=== PATIENT | female | born 1960 | race Caucasian/White ===

== ENCOUNTER 2016-07-07 16:21 | Emergency (ER) | payer OTHER, SELFPAY ==
[2016-07-07] MEDS ORDERED: Nitrostat 0.4 MG (ED) SL ONE ×3 (16:42→17:15)
[2016-07-07] MEDS ORDERED: BABY ASPIRIN 81 MG CHEW PO ONE (16:42)
--- NOTE | 2016-07-07 16:42 | ERPHSYRPT ---
- History of Present Illness Time Seen by Provider: 07/07/16 16:34 Historian: patient Exam Limitations: no limitations Patient Subjective Stated Complaint: cp since 1400 Triage Nursing Assessment: states lt side cp radiating to lt shoulder since 1400. increased sob and diaphretic 'with pain'. on arrival, cp worse wtih deep breath. skin warm and dry. pain to lt chest to lt elbow. diminshed lung sounds ' its usually my anxiety but this pain is worse than my normal anxiety' Physician History: The patient is a 56-year-old female complaining of chest pain for about 2-1/2-3 hours. It's on the left side of her chest and radiates to her left shoulder and left arm. She thinks it's worse than the chest pain she has occasionally with her anxiety. She complains of some shortness of breath and sweating. No nausea or vomiting. She has a long history of cigarette use. Her past medical history significant for COPD, hypertension, diabetes, and anxiety. She has a lot of stressors in her life at this time. Timing/Duration: hour(s) (3), constant, sudden Activities at Onset: none Quality: pressure Location: substernal Chest Pain Radiation: neck, arm Severity of Pain-Max: moderate Severity of Pain-Current: moderate Modifying Factors: Improves With: nothing Associated Symptoms: shortness of breath, diaphoresis Prior Chest Pain/Cardiac Workup: non-cardiac Nitro Today/Relief: no nitro taken today Aspirin Treatment Today: no aspirin today Allergies/Adverse Reactions: lisinopril Allergy (Verified 07/07/16 16:30) Home Medications: Clonazepam [Klonopin] 2 mg PO BID 10/30/13 [History] Hydrocodone Bit/Acetaminophen [Hydrocodon-Acetaminophn 10-325] 1 each PO Q4- 6HPRN PRN 10/30/13 [History] Amlodipine Besylate 10 mg [Norvasc 10 MG] 10 mg PO DAILY 09/03/14 [History] Hydrochlorothiazide 25 mg PO DAILY 09/03/14 [History] Gabapentin 400 mg [Neurontin 400 MG] 600 mg PO TID 01/26/15 [History] Albuterol 8 gm Mdi Hfa [Ventolin Hfa MDI] 18 gm IH UD 03/09/16 [History] Fluticasone/Vilanterol [Breo Ellipta 100-25 Mcg INH] 1 each IH UD 03/09/16 [ History] Furosemide 20 mg [Lasix 20 mg] 20 mg PO DAILY 03/09/16 [History] Hydralazine HCl 50 mg PO TID 03/09/16 [History] Diclofenac Sodium Gel [Voltaren GEL] 100 gm TP BID PRN PRN 03/13/16 [ History] Fluticasone Propionate [Flonase NASAL] 1 spray NS DAILY 03/13/16 [History] Nystatin [Nystatin Susp] 1 ml PO DAILY PRN PRN 03/13/16 [History] Polyethylene Glycol 3350 17 gm [Miralax Powder 17GM PACKET] 17 gm PO DAILY [History] Potassium Chloride 20 Meq [Klor-Con 20 MEQ] 20 meq PO DAILY 03/13/16 [History] Hx Tetanus, Diphtheria Vaccination/Date Given: Yes Hx Influenza Vaccination/Date Given: No Hx Pneumococcal Vaccination/Date Given: No Immunizations Up to Date: Yes - Review of Systems Constitutional: No Fever, No Chills Eyes: No Symptoms Ears, Nose, & Throat: No Symptoms Respiratory: Dyspnea Cardiac: Chest Pain Abdominal/Gastrointestinal: No Abdominal Pain, No Nausea, No Vomiting, No Diarrhea Genitourinary Symptoms: No Dysuria Musculoskeletal: No Back Pain, No Neck Pain Skin: No Rash Neurological: No Dizziness, No Focal Weakness, No Sensory Changes Psychological: No Symptoms Endocrine: No Symptoms Hematologic/Lymphatic: No Symptoms Immunological/Allergic: No Symptoms All Other Systems: Reviewed and Negative - Past Medical History Pertinent Past Medical History: Yes Neurological History: No Pertinent History ENT History: No Pertinent History Cardiac History: High Cholesterol, Hypertension Respiratory History: COPD Endocrine Medical History: Diabetes Type II Musculoskeletal History: No Pertinent History GI Medical History: No Pertinent History History: No Pertinent History Psycho-Social History: Anxiety, Depression Female Reproductive Disorders: No Pertinent History Other Medical History: T and A - Past Surgical History Past Surgical History: Yes Neuro Surgical History: No Pertinent History Cardiac: No Pertinent History Respiratory: No Pertinent History Gastrointestinal: Cholecystectomy Genitourinary: No Pertinent History Musculoskeletal: No Pertinent History Female Surgical History: Section Other Surgical History: T&A - Social History Smoking Status: Current every day smoker How long have you smoked: 40 years Exposure to second hand smoke: Yes Drug Use: none Patient Lives Alone: No - Female History Hx Now: No - Nursing Vital Signs Temperature: 97.5 F Temperature Source: Oral Pulse Rate: 100 Respiratory Rate: 18 Blood Pressure: 147/87 Pain Intensity: 10 - Physical Exam General Appearance: mild distress Eye Exam: PERRL/EOMI, eyes nml inspection Ears, Nose, Throat Exam: normal ENT inspection, moist mucous membranes Neck Exam: normal inspection, non-tender, supple, full range of motion Respiratory Exam: normal breath sounds, lungs clear, No respiratory distress Cardiovascular Exam: regular rate/rhythm, normal heart sounds Gastrointestinal/Abdomen Exam: soft, No tenderness, No mass Pelvic Exam: not done Rectal Exam: not done Back Exam: normal inspection, No CVA tenderness, No vertebral tenderness Extremity Exam: normal inspection, normal range of motion Neurologic Exam: alert, oriented x 3, cooperative, normal mood/affect, sensation nml, No motor deficits Skin Exam: normal color, warm, dry SpO2 Interpretation: normal SpO2: 98 Oxygen Delivery: Room Air - Course EKG Interpreted by Me: Sinus Rhythm, NORMAL INTERVALS, NORMAL QRS, NORMAL ST-T, Other (No change comp EKG 03/13/16) - Radiology Exams Chest X-ray Interpretation: Interpreted by me, Negative Ordered Tests: Active Orders 24 hr Category Date Time Status Bolt Header STAT Care 07/07/16 16:42 Active EKG-ER Only STAT Care 07/07/16 16:42 Active IV Insertion STAT Care 07/07/16 16:42 Active Oxygen-ED Only NASAL CANNULA 2 lpm Care 07/07/16 16:42 Active Pulse Oximetry (ED) STAT Care 07/07/16 16:42 Active CHEST 2 VIEWS (PA AND LAT) Stat Exams 07/07/16 16:42 Taken CBC W DIFF Stat Lab 07/07/16 16:49 Completed CMP Stat Lab 07/07/16 16:49 Completed D-DIMER QUANTITATION Stat Lab 07/07/16 16:49 Completed Manual Differential NC Stat Lab 07/07/16 16:49 Completed NT PRO BNP Stat Lab 07/07/16 16:49 Completed TROPONIN Q3H Lab 07/07/16 16:45 Completed TROPONIN Q3H Lab 07/07/16 19:45 Ordered TROPONIN Q3H Lab 07/07/16 22:45 Ordered TROPONIN Q3H Lab 07/08/16 01:45 Ordered TROPONIN Q3H Lab 07/08/16 04:45 Ordered Urine Triage Profile Stat Lab 07/07/16 16:42 Ordered Medication Summary Generic Name Dose Route Start Last Admin Trade Name Comfort PRN Reason Stop Dose Admin Nitroglycerin 0.4 mg 07/07/16 17:05 07/07/16 17:17 Nitrostat 0.4 Mg Tablet SL 08/06/16 17:04 0.4 mg Q5MIN PRN MR X 3 PRN Administration CHEST PAIN Discontinued Medications Generic Name Dose Route Start Last Admin Trade Name Comfort PRN Reason Stop Dose Admin Aspirin 324 mg 07/07/16 16:42 07/07/16 16:49 Baby Aspirin 81 Mg Chew PO 07/07/16 16:43 324 mg STAT ONE Administration Aspirin Confirm 07/07/16 16:48 Baby Aspirin 81 Mg Chew Administered 07/07/16 16:49 Dose 324 mg .ROUTE .STK-MED ONE Nitroglycerin 0.4 mg 07/07/16 16:42 07/07/16 16:49 Nitrostat 0.4 Mg (Ed) SL 07/07/16 16:43 0.4 mg STAT ONE Administration Nitroglycerin Confirm 07/07/16 16:48 Nitrostat 0.4 Mg (Ed) Administered 07/07/16 16:49 Dose 0.4 mg SL .STK-MED ONE Nitroglycerin Confirm 07/07/16 17:15 Nitrostat 0.4 Mg (Ed) Administered 07/07/16 17:16 Dose 0.8 mg SL .STK-MED ONE Potassium Chloride 40 meq 07/07/16 17:32 07/07/16 17:48 Klor Con 10 Meq PO 07/07/16 17:33 40 meq STAT ONE Administration Potassium Chloride Confirm 07/07/16 17:47 Klor Con 10 Meq Administered 07/07/16 17:48 Dose 40 meq PO .STK-MED ONE Lab/Rad Data: Laboratory Result Diagrams 07/07/16 16:49 07/07/16 16:49 Laboratory Results 07/07/16 07/07/16 07/07/16 Range/Units 16:49 16:49 16:49 WBC 11.2 H (4.0-10.5) K/mm3 RBC 4.93 (4.1-5.4) M/mm3 Hgb 13.9 (12.0-16.0) gm/dl Hct 42.2 (35-47) % MCV 85.6 (78-100) fl MCH 28.2 (26-32) pg MCHC 32.9 (32-36) g/dl RDW 15.2 H (11.5-14.0) % Plt Count 292 (150-450) K/mm3 MPV 12.4 H (6-9.5) fl Segmented Neutrophils 53 (36.0-66.0) % Lymphocytes (Manual) 37 (24-44) % Monocytes (Manual) 8 (0.0-12.0) % Eosinophils (Manual) 2 (0.00-3.0) % Differential Comment NORMAL Platelet Estimate NORMAL (NORMAL) D-Dimer 0.445 (0.00-0.49) mg/L Sodium 145 (136-145) mEq/L Potassium 3.1 L (3.5-5.1) mEq/L Chloride 104 (98-107) mEq/L Carbon Dioxide 26.7 (21-32) mEq/L Anion Gap 16.9 H (5-15) MEQ/L BUN 16 (9-20) mg/dL Creatinine 0.82 (0.55-1.30) mg/dl Estimated GFR > 60 ML/MIN Glucose 59 L (70-110) MG/DL Calcium 9.6 (8.5-10.1) mg/dL Total Bilirubin 0.4 (0.2-1.0) mg/dL AST 46 H (15-37) U/L ALT 48 (12-78) U/L Alkaline Phosphatase 111 (46-116) U/L Troponin I (0.000-0.056) ng/ml NT-Pro-B Natriuret Pep < 5.0 (0-125) pg/ml Serum Total Protein 8.5 H (6.4-8.2) gm/dL Albumin 4.3 (3.4-5.0) g/dL 07/07/16 Range/Units 16:45 WBC (4.0-10.5) K/mm3 RBC (4.1-5.4) M/mm3 Hgb (12.0-16.0) gm/dl Hct (35-47) % MCV (78-100) fl MCH (26-32) pg MCHC (32-36) g/dl RDW (11.5-14.0) % Plt Count (150-450) K/mm3 MPV (6-9.5) fl Segmented Neutrophils (36.0-66.0) % Lymphocytes (Manual) (24-44) % Monocytes (Manual) (0.0-12.0) % Eosinophils (Manual) (0.00-3.0) % Differential Comment Platelet Estimate (NORMAL) D-Dimer (0.00-0.49) mg/L Sodium (136-145) mEq/L Potassium (3.5-5.1) mEq/L Chloride (98-107) mEq/L Carbon Dioxide (21-32) mEq/L Anion Gap (5-15) MEQ/L BUN (9-20) mg/dL Creatinine (0.55-1.30) mg/dl Estimated GFR ML/MIN Glucose (70-110) MG/DL Calcium (8.5-10.1) mg/dL Total Bilirubin (0.2-1.0) mg/dL AST (15-37) U/L ALT (12-78) U/L Alkaline Phosphatase (46-116) U/L Troponin I < 0.017 (0.000-0.056) ng/ml NT-Pro-B Natriuret Pep (0-125) pg/ml Serum Total Protein (6.4-8.2) gm/dL Albumin (3.4-5.0) g/dL - Progress Progress: improved Air Movement: good Progress Note: 07/07/16 17:04 NG 0.4 mg SL has brought pain down from a 10 to a 9. 07/07/16 17:31 After NG 0.4 mg SL times 3, CP is now 5 of 10. Blood Culture(s) Obtained: No Antibiotics given: No Discussed with DrPerico: Other (Transfer to [facility] per Dr Rodas) Counseled pt/family regarding: lab results, diagnosis, rad results - Departure Time of Disposition: 18:24 Departure Disposition: Transfer (Transfer to [facility] per Dr Rodas) Clinical Impression: Chest pain, Hypokalemia Condition: Good Critical Care Time: No
[2016-07-07] MEDS ORDERED: BABY ASPIRIN 81 MG CHEW ONE (16:48)
[2016-07-07 16:58] LABS: Mean Cell Volume 85.6 fl (78-100); Mean Corpuscular Hemoglobin 28.2 pg (26-32); Mean Platelet Volume 12.4 fl (6-9.5); Platelet Count 292 K/mm3 (150-450); Red Blood Count 4.93 M/mm3 (4.1-5.4); Red Cell Distribution Width 15.2 % (11.5-14.0); White Blood Count 11.2 K/mm3 (4.0-10.5)
[2016-07-07] MEDS: Nitrostat 0.4 MG Tablet SL PRN ×2 (17:14→17:17)
[2016-07-07 17:28] LABS: ALBUMIN 4.3 g/dL (3.4-5.0); ALKALINE PHOSPHATASE 111 U/L (46-116); ANION GAP 16.9 MEQ/L (5-15); BILIRUBIN,TOTAL 0.4 mg/dL (0.2-1.0); BLOOD UREA NITROGEN 16 mg/dL (9-20); CHLORIDE 104 mEq/L (98-107); Carbon Dioxide 26.7 mEq/L (21-32); Glucose 59 MG/DL (70-110); Potassium 3.1 mEq/L (3.5-5.1); SGOT/AST 46 U/L (15-37); SGPT/ALT 48 U/L (12-78); SODIUM 145 mEq/L (136-145); Total Protein 8.5 gm/dL (6.4-8.2)
[2016-07-07] MEDS ORDERED: Klor Con 10 MEQ PO ONE ×2 (17:32→17:47)
[2016-07-07 17:51] LABS: Eosinophil 2 % (0.00-3.0); Total Cells Counted 100
[2016-07-07 17:59] LABS: Platelet Estimate NORMAL (NORMAL)
[2016-07-07] MEDS ORDERED: MORPHINE SULFATE 4 MG INJ IV ONE (18:25)
[2016-07-07] MEDS ORDERED: MORPHINE SULFATE 4 MG INJ ONE (18:26)
[2016-07-07] MEDS ORDERED: Zofran 4 MG/2 ML VIAL IV ONE (18:26)
[2016-07-07] MEDS ORDERED: Zofran 4 MG/2 ML VIAL ONE (18:26)
[2016-07-07 19:13] VITALS: BP 119/70; PULSE 80; O2SAT 99
--- NOTE | 2016-07-08 08:35 | XRAY ---
Indication: Chest pain. Comparison: March 09, 2016 PA/lateral chest again demonstrates normal heart, lungs, and bony thorax.
== END 2016-07-07 19:48 | disposition short-term general hospital (02) ==
LOC: ED 16:21
DX: R07.89 Other chest pain (principal); E78.00 Pure hypercholesterolemia, unspecified; I10 Essential (primary) hypertension; J44.9 Chronic obstructive pulmonary disease, unspecified; E11.9 Type 2 diabetes mellitus without complications; F41.9 Anxiety disorder, unspecified; Z79.82 Long term (current) use of aspirin; Z79.899 Other long term (current) drug therapy
CPT/HCPCS: 36000; 36415; 71020; 80053; 83880; 84484; 85025; 85379; 93005; 93041; 96360; 96361; 96374; 96375; 99285; J2270; J2405

== ENCOUNTER 2017-03-06 14:07 | Emergency (ER) | payer OTHER ==
[2017-03-06] MEDS ORDERED: DUONEB 0.5-3 MG/3 ml Neb IH ONE ×2 (15:05→15:12)
[2017-03-06] MEDS ORDERED: MOTRIN 600 MG PO ONE (15:05)
[2017-03-06] MEDS ORDERED: ATARAX 25 MG PO ONE (15:05)
[2017-03-06] MEDS ORDERED: DECADRON 10MG INJ. IM ONE (15:06)
--- NOTE | 2017-03-06 15:10 | ERPHSYRPT ---
- History of Present Illness Time Seen by Provider: 03/06/17 15:02 Source: patient Patient Subjective Stated Complaint: patient saw harini vázquez for shortness of breath and sore throat they put on steroids and antibiotics she went on vacation and still hasnt gotten better so she is now back and decided she needed to come in Triage Nursing Assessment: patient alert and oriented x3, lung sounds diminished , throat reddened , congestion , intermittant cough, patietn ambualtes well, gait is steady. pulses present bilateral radius, pedal pulses present. skin clean dry and intact Physician History: CC: copd Hx: 56 y/o patient of Dr Emmanuel/Han. She has hx of COPD. Recently took steroids and abtx then went to [place]. She enjoyed her vacation. She has continued sore throat, ear pressure, cough, rhinorrhea and feeling of shortness of breath. Came to ER with her sister who also was ill. No fever or chills. Sugars running well. She has hx of HTN. She takes CPAP and nebs. Allergies/Adverse Reactions: lisinopril Allergy (Verified 07/07/16 16:30) Home Medications: Clonazepam [Klonopin] 0.5 mg PO BID 10/30/13 [History] Amlodipine Besylate 10 mg [Norvasc 10 MG] 10 mg PO DAILY 09/03/14 [History] Hydrochlorothiazide 25 mg PO DAILY 09/03/14 [History] Albuterol 8 gm Mdi Hfa [Ventolin Hfa MDI] 18 gm IH Q4-6HPRN PRN 03/09/16 [ History] Fluticasone/Vilanterol [Breo Ellipta 100-25 Mcg INH] 1 each IH DAILY 03/09/16 [ History] Furosemide 20 mg [Lasix 20 mg] 20 mg PO DAILY 03/09/16 [History] Fluticasone Propionate [Flonase NASAL] 2 spray NS DAILY 03/13/16 [History] Nystatin [Nystatin Susp] 1 ml PO QID 03/13/16 [History] Gabapentin [Neurontin] 600 mg PO TID 09/29/16 [History] Glipizide 5 mg [Glucotrol 5 MG] 5 mg PO BID 09/29/16 [History] Metformin HCl [Glucophage] 1,000 mg PO BID 09/29/16 [History] Nortriptyline HCl [Pamelor] 25 mg PO HS 09/29/16 [History] Omeprazole [Prilosec] 40 mg PO DAILY 09/29/16 [History] Promethazine HCl 25 mg [Phenergan 25 mg] 25 mg PO .UNKNOWN 09/29/16 [ History] Quetiapine Fumarate [Seroquel] 200 mg PO HS 09/29/16 [History] Trazodone HCl [Desyrel] 100 mg PO HS 09/29/16 [History] Hydrocodone/APAP 10/325 mg [Wesley 10/325 MG Tablet] 1 tab PO Q4-6HPRN PRN 11/04/16 [History] Hydroxyzine HCl 25 mg [Atarax 25 mg] 25 mg PO BIDPRN PRN 01/24/17 [History ] Hx Tetanus, Diphtheria Vaccination/Date Given: Yes Hx Influenza Vaccination/Date Given: No Hx Pneumococcal Vaccination/Date Given: No Immunizations Up to Date: Yes - Review of Systems Constitutional: Malaise, No Fever, No Chills Eyes: No Symptoms Ears, Nose, & Throat: Nose Congestion Respiratory: Cough Cardiac: No Chest Pain Abdominal/Gastrointestinal: No Abdominal Pain, No Nausea, No Vomiting Genitourinary Symptoms: No Dysuria Skin: No Rash Neurological: No Headache All Other Systems: Reviewed and Negative - Past Medical History Pertinent Past Medical History: Yes Neurological History: Migraines, TIA ENT History: No Pertinent History Cardiac History: Hypertension Respiratory History: COPD, Sleep Apnea Endocrine Medical History: Diabetes Type II Musculoskeletal History: Osteoarthritis GI Medical History: No Pertinent History History: No Pertinent History Psycho-Social History: Anxiety, Depression Female Reproductive Disorders: No Pertinent History Other Medical History: depression, anxiety - Past Surgical History Past Surgical History: Yes Neuro Surgical History: No Pertinent History Cardiac: No Pertinent History Respiratory: No Pertinent History Gastrointestinal: Cholecystectomy Genitourinary: No Pertinent History Musculoskeletal: No Pertinent History Female Surgical History: Section Other Surgical History: T&A - Social History Smoking Status: Current every day smoker How long have you smoked: 40 years Exposure to second hand smoke: Yes Drug Use: none Patient Lives Alone: No - Female History Hx Now: No - Nursing Vital Signs Nursing Vital Signs: Initial Vital Signs Temperature 97.6 F 03/06/17 14:07 Pulse Rate 71 03/06/17 14:07 Respiratory Rate 20 03/06/17 14:07 Blood Pressure 172/86 03/06/17 14:07 O2 Sat by Pulse Oximetry 97 03/06/17 14:07 Pain Scale Pain Intensity 8 - Physical Exam General Appearance: alert Eye Exam: PERRL/EOMI Ears, Nose, Throat Exam: normal ENT inspection, normal pharynx, No abnormal TM ( R), No abnormal TM (L) Neck Exam: normal inspection, non-tender, supple Respiratory Exam: normal breath sounds, No respiratory distress, No wheezing Cardiovascular/Chest Exam: regular rate/rhythm, No normal heart sounds Abdominal/Gastrointestinal Exam: soft, No tenderness, No distention Extremity Exam: non-tender, no calf tenderness, No pedal edema Neurologic Exam: alert, oriented x 3, cooperative, sensation nml, No motor deficits Skin Exam: warm, dry, No rash SpO2 Interpretation: normal SpO2: 97 - Course Nursing assessment & vital signs reviewed: Yes - Radiology Exams cxr X-ray Interpretation: Interpreted by me, Negative, No Pneumonia, No Pneumothorax Ordered Tests: Active Orders 24 hr Category Date Time Status ACCUCHECK [Accucheck] STAT Care 03/06/17 15:06 Active CHEST 2 VIEWS (PA AND LAT) Stat Exams 03/06/17 15:05 Taken Respiratory Nebulizer STAT RT 03/06/17 15:06 Completed Medication Summary Discontinued Medications Generic Name Dose Route Start Last Admin Trade Name Comfort PRN Reason Stop Dose Admin Albuterol/Ipratropium 3 ml 03/06/17 15:05 03/06/17 15:10 Duoneb 0.5-3 Mg/3 Ml Neb IH 03/06/17 15:06 3 ml STAT ONE Administration Albuterol/Ipratropium Confirm 03/06/17 15:12 Duoneb 0.5-3 Mg/3 Ml Neb Administered 03/06/17 15:13 Dose 3 ml IH .STK-MED ONE Dexamethasone Sodium Phosphate 10 mg 03/06/17 15:06 03/06/17 15:16 Decadron 10mg Inj. IM 03/06/17 15:07 10 mg STAT ONE Administration Dexamethasone Sodium Phosphate Confirm 03/06/17 15:14 Decadron 10mg Inj. Administered 03/06/17 15:15 Dose 10 mg .ROUTE .STK-MED ONE Hydroxyzine HCl 50 mg 03/06/17 15:05 03/06/17 15:16 Atarax 25 Mg PO 03/06/17 15:06 50 mg STAT ONE Administration Hydroxyzine HCl Confirm 03/06/17 15:14 Atarax 25 Mg Administered 03/06/17 15:15 Dose 50 mg .ROUTE .STK-MED ONE Ibuprofen 600 mg 03/06/17 15:05 03/06/17 15:16 Motrin 600 Mg PO 03/06/17 15:06 600 mg STAT ONE Administration Ibuprofen Confirm 03/06/17 15:13 Motrin 600 Mg Administered 03/06/17 15:14 Dose 600 mg .ROUTE .STK-MED ONE - Progress Progress Note: 03/06/17 15:09 Talkative, ambulatory, PE appears to be low risk. 03/06/17 16:07 Abtx not indicated. Advised BP recheck this week. Lungs clear. Will release with instr. Counseled pt/family regarding: diagnosis, need for follow-up, rad results, smoking cessation - Departure Time of Disposition: 16:07 Departure Disposition: Home Clinical Impression: COPD with exacerbation Condition: Stable Critical Care Time: No Referrals: LUPIS EMMANUEL [Primary Care Provider] - Instructions: Chronic Obstructive Pulmonary Disease, Quit Smoking Additional Instructions: UPPER RESPIRATORY INFECTIONS 1. The signs and symptoms of a cold may last up to 10 days. These illnesses are due to viruses which are not treatable with antibiotics. 2. The following suggestions can aid in recovery and to minimize symptoms: A. Increase fluid intake. B. Acetaminophen or Ibuprofen as directed. C. Avoid smoking environments as this will increase the risk of developing pneumonia. D. For children, may use a cool mist vaporizer in the child's room. 3. Contact your Family Physician if you note: A. Persisten fever >103 for more than 3 days B. Breathing difficulty C. Productive cough of yellow/green sputum D. Illness greater than 7 days E. Persistent vomiting F. Stiff neck Avoid smoke exposure. Follup with Dr Emmanuel this week to have blood pressure rechecked. Use your nebs every 4 hours.
[2017-03-06] MEDS ORDERED: MOTRIN 600 MG ONE (15:13)
[2017-03-06] MEDS ORDERED: DECADRON 10MG INJ. ONE (15:14)
[2017-03-06] MEDS ORDERED: ATARAX 25 MG ONE (15:14)
[2017-03-06 15:36] VITALS: BP 168/70
[2017-03-06 15:46] VITALS: PULSE 72
[2017-03-06 16:06] VITALS: O2SAT 97
--- NOTE | 2017-03-06 21:20 | XRAY ---
Indication: Cough. Comparison: July 07, 2016. PA/lateral chest again demonstrates normal heart, lungs, and bony thorax with incidental calcified granulomas.
== END 2017-03-06 16:15 | disposition home or self-care (01) ==
LOC: ED 14:07
DX: J44.1 Chronic obstructive pulmonary disease with (acute) exacerbation (principal); R05 Cough; R06.02 Shortness of breath
CPT/HCPCS: 71020; 82962; 94640; 96372; 99283; 99284; J1100; A9270-GY

== ENCOUNTER 2017-08-20 15:47 | Emergency (ER) | payer MEDICAID, OTHER ==
[2017-08-20 16:09] VITALS: BP 154/95
--- NOTE | 2017-08-20 16:47 | ERPHSYRPT ---
- History of Present Illness Time Seen by Provider: 08/20/17 16:35 Source: patient, family Exam Limitations: no limitations Patient Subjective Stated Complaint: pt states that she is sob-bilateral legs swollen-back pain-states that she has been receiving treatment for it but that it isn't working-states that pain clinic has changed her pain meds and isn't helping her-states that her legs are better and not swollen as bad but still hurts-states that she is supposed to sleep with a mask for her sleep apnea but hasn't been Triage Nursing Assessment: pt pink warm and dry-very talkative with sentences running into each other with no difficluty with resp-no retractions noted-pedal pulses regular and strong-cap refill wnl-pt ambulatory with no difficulty-pt extremely anxious-very upset about her pain meds and the pain clinic Physician History: The patient is a 57-year-old female with a friend with multiple complaints. She is a relatively poor historian and has to be redirected frequently. Her primary complaint today is shortness of breath. Her shortness of breath began July 31. She was given an antibiotic for 7 days that helped a little bit but then her shortness of breath returned after the antibiotic was stopped. She then saw her agricultural chemicals inspector who started her on another antibiotic of which she does not know the name but she know she took 500 mg twice a day. She was slightly better for the 7 days but when she stopped about a week ago she started getting worse again. She states it is hard for her to breathe. She continues to smoke. She has COPD. She has wheezing. Her past medical history is significant for COPD, diabetes, hypertension, GERD, and chronic pain. Timing/Duration: week(s) (3), gradual onset, worse Severity: moderate Modifying Factors: Improves With: medication Associated Symptoms: shortness of breath, cough Allergies/Adverse Reactions: lisinopril Allergy (Verified 08/20/17 16:17) Home Medications: Amlodipine Besylate 10 mg [Norvasc 10 MG] 10 mg PO DAILY 09/03/14 [History] Hydrochlorothiazide 25 mg PO DAILY 09/03/14 [History] Albuterol 8 gm Mdi Hfa [Ventolin Hfa MDI] 18 gm IH Q4-6HPRN PRN 03/09/16 [ History] Fluticasone/Vilanterol [Breo Ellipta 100-25 Mcg INH] 1 each IH DAILY 03/09/16 [ History] Furosemide 20 mg [Lasix 20 mg] 40 mg PO DAILY 03/09/16 [History] Fluticasone Propionate [Flonase NASAL] 2 spray NS DAILY 03/13/16 [History] Nystatin [Nystatin Susp] 1 ml PO QID 03/13/16 [History] Gabapentin [Neurontin] 600 mg PO TID 09/29/16 [History] Glipizide 5 mg [Glucotrol 5 MG] 5 mg PO BID 09/29/16 [History] Metformin HCl [Glucophage] 1,000 mg PO BID 09/29/16 [History] Nortriptyline HCl [Pamelor] 25 mg PO HS 09/29/16 [History] Omeprazole [Prilosec] 40 mg PO DAILY 09/29/16 [History] Promethazine HCl 25 mg [Phenergan 25 mg] 25 mg PO .UNKNOWN 09/29/16 [ History] Quetiapine Fumarate [Seroquel] 100 mg PO HS 09/29/16 [History] Trazodone HCl [Desyrel] 100 mg PO HS 09/29/16 [History] Hydrocodone/APAP 10/325 mg [Cutler 10/325 MG Tablet] 1 tab PO Q4-6HPRN PRN 11/04/16 [History] Hydroxyzine HCl 25 mg [Atarax 25 mg] 25 mg PO BIDPRN PRN 01/24/17 [History ] Buspirone HCl [Buspar] 7.5 mg PO .UNKNOWN 03/27/17 [History] Naloxegol Oxalate [Movantik] 25 mg PO DAILY 06/16/17 [History] Hx Tetanus, Diphtheria Vaccination/Date Given: Yes Hx Influenza Vaccination/Date Given: No Hx Pneumococcal Vaccination/Date Given: No Immunizations Up to Date: Yes - Review of Systems Constitutional: No Fever, No Chills Eyes: No Symptoms Ears, Nose, & Throat: No Symptoms Respiratory: Cough, Dyspnea Cardiac: No Chest Pain, No Edema, No Syncope Abdominal/Gastrointestinal: No Abdominal Pain, No Nausea, No Vomiting, No Diarrhea Genitourinary Symptoms: No Dysuria Musculoskeletal: No Back Pain, No Neck Pain Skin: No Rash Neurological: No Dizziness, No Focal Weakness, No Sensory Changes Psychological: No Symptoms Endocrine: No Symptoms Hematologic/Lymphatic: No Symptoms Immunological/Allergic: No Symptoms All Other Systems: Reviewed and Negative - Past Medical History Pertinent Past Medical History: Yes Neurological History: Migraines, TIA ENT History: No Pertinent History Cardiac History: Hypertension Respiratory History: COPD, Sleep Apnea Endocrine Medical History: Diabetes Type II Musculoskeletal History: Osteoarthritis GI Medical History: No Pertinent History History: No Pertinent History Psycho-Social History: Anxiety, Depression Female Reproductive Disorders: No Pertinent History Other Medical History: depression, anxiety - Past Surgical History Past Surgical History: Yes Neuro Surgical History: No Pertinent History Cardiac: No Pertinent History Respiratory: No Pertinent History Gastrointestinal: Cholecystectomy Genitourinary: No Pertinent History Musculoskeletal: No Pertinent History Female Surgical History: Section Other Surgical History: T&A - Social History Smoking Status: Current every day smoker How long have you smoked: 40 years Exposure to second hand smoke: Yes Drug Use: none Patient Lives Alone: No - Female History Hx Now: No - Nursing Vital Signs Nursing Vital Signs: Initial Vital Signs Temperature 98.5 F 08/20/17 16:08 Pulse Rate 85 08/20/17 16:08 Respiratory Rate 20 08/20/17 16:08 Blood Pressure 154/95 08/20/17 16:08 O2 Sat by Pulse Oximetry 99 08/20/17 16:08 Pain Scale Pain Intensity 10 - Physical Exam General Appearance: mild distress, anxiety Eye Exam: PERRL/EOMI, eyes nml inspection Ears, Nose, Throat Exam: normal ENT inspection, TMs normal, pharynx normal, moist mucous membranes Neck Exam: normal inspection, non-tender, supple, full range of motion Respiratory Exam: diminished breath sounds, wheezing Cardiovascular Exam: regular rate/rhythm, normal heart sounds, normal peripheral pulses Gastrointestinal/Abdomen Exam: soft, normal bowel sounds, No tenderness, No mass Pelvic Exam: not done Rectal Exam: not done Back Exam: normal inspection, normal range of motion, No CVA tenderness, No vertebral tenderness Extremity Exam: normal inspection, normal range of motion, pelvis stable Neurologic Exam: alert, oriented x 3, cooperative, normal mood/affect, nml cerebellar function, nml station & gait, sensation nml, No motor deficits Skin Exam: normal color, warm, dry, No rash Lymphatic Exam: No adenopathy SpO2 Interpretation: normal SpO2: 99 Oxygen Delivery: Room Air - Radiology Exams Chest X-ray Interpretation: Interpreted by me, Negative Ordered Tests: Active Orders 24 hr Category Date Time Status Slotter Operator STAT Care 08/20/17 16:53 Active IV Insertion STAT Care 08/20/17 16:52 Active Pulse Oximetry (ED) STAT Care 08/20/17 16:52 Active CHEST 2 VIEWS (PA AND LAT) Stat Exams 08/20/17 16:52 Taken CBC W DIFF Stat Lab 08/20/17 17:35 Completed CMP Stat Lab 08/20/17 17:35 Completed NT PRO BNP Stat Lab 08/20/17 17:35 Completed TROPONIN Q3H Lab 08/20/17 17:35 Completed TROPONIN Q3H Lab 08/20/17 20:00 Ordered TROPONIN Q3H Lab 08/20/17 23:00 Ordered TROPONIN Q3H Lab 08/21/17 02:00 Ordered TROPONIN Q3H Lab 08/21/17 05:00 Ordered Respiratory Nebulizer STAT RT 08/20/17 16:53 Completed Respiratory Nebulizer STAT RT 08/20/17 18:06 Completed Medication Summary Discontinued Medications Generic Name Dose Route Start Last Admin Trade Name Freq PRN Reason Stop Dose Admin Albuterol Sulfate 2.5 mg 08/20/17 18:05 08/20/17 18:20 Proventil 2.5 Mg/3 Ml Neb IH 08/20/17 18:06 2.5 mg STAT ONE Administration Albuterol Sulfate Confirm 08/20/17 18:18 Proventil 2.5 Mg/3 Ml Neb Administered 08/20/17 18:19 Dose 2.5 mg IH .STK-MED ONE Albuterol/Ipratropium 3 ml 08/20/17 16:52 08/20/17 17:25 Duoneb 0.5-3 Mg/3 Ml Neb IH 08/20/17 16:53 3 ml STAT ONE Administration Albuterol/Ipratropium Confirm 08/20/17 17:25 Duoneb 0.5-3 Mg/3 Ml Neb Administered 08/20/17 17:26 Dose 3 ml IH .STK-MED ONE Furosemide 40 mg 08/20/17 16:52 08/20/17 17:45 Lasix 40 Mg/4 Ml IV 08/20/17 16:53 40 mg STAT ONE Administration Furosemide Confirm 08/20/17 17:43 Lasix 40 Mg/4 Ml Administered 08/20/17 17:44 Dose 40 mg .ROUTE .STK-MED ONE Methylprednisolone Sodium Succinate 125 mg 08/20/17 16:52 08/20/17 17:45 Solu-Medrol 125 Mg IV 08/20/17 16:53 125 mg STAT ONE Administration Methylprednisolone Sodium Succinate Confirm 08/20/17 17:43 Solu-Medrol 125 Mg Administered 08/20/17 17:44 Dose 125 mg .ROUTE .STK-MED ONE Lab/Rad Data: Laboratory Result Diagrams 08/20/17 17:35 08/20/17 17:35 Laboratory Results 08/20/17 08/20/17 08/20/17 Range/Units 17:35 17:35 17:35 WBC 11.4 H (4.0-10.5) K/mm3 RBC 4.45 (4.1-5.4) M/mm3 Hgb 12.8 (12.0-16.0) gm/dl Hct 38.9 (35-47) % MCV 87.4 (78-100) fl MCH 28.8 (26-32) pg MCHC 32.9 (32-36) g/dl RDW 14.4 H (11.5-14.0) % Plt Count 275 (150-450) K/mm3 MPV 11.6 H (6-9.5) fl Gran % 48.4 (36.0-66.0) % Lymphocytes % 42.4 (24.0-44.0) % Monocytes % 7.4 (0.0-12.0) % Eosinophils % 1.4 (0.00-5.0) % Basophils % 0.4 (0.0-0.4) % Basophils # 0.04 (0-0.4) Sodium 137 (136-145) mEq/L Potassium 4.1 (3.5-5.1) mEq/L Chloride 101 (98-107) mEq/L Carbon Dioxide 22.4 (21-32) mEq/L Anion Gap 17.9 H (5-15) MEQ/L BUN 21 H (9-20) mg/dL Creatinine 0.82 (0.55-1.30) mg/dl Estimated GFR > 60 ML/MIN Glucose 111 H (70-110) MG/DL Calcium 9.4 (8.5-10.1) mg/dL Total Bilirubin 0.60 (0.2-1.0) mg/dL AST 39 H (15-37) U/L ALT 39 (12-78) U/L Alkaline Phosphatase 98 (46-116) U/L Troponin I < 0.017 (0.000-0.056) ng/ml NT-Pro-B Natriuret Pep 55 (0-125) pg/ml Serum Total Protein 8.5 H (6.4-8.2) gm/dL Albumin 4.4 (3.4-5.0) g/dL - Progress Progress: improved Counseled pt/family regarding: lab results, diagnosis, need for follow-up, rad results - Departure Time of Disposition: 19:45 Departure Disposition: Home Clinical Impression: COPD exacerbation Condition: Stable Critical Care Time: No Referrals: LUPIS EMMANUEL [Primary Care Provider] - Instructions: Chronic Obstructive Pulmonary Disease Additional Instructions: You have a COPD exacerbation. You were given a DuoNeb treatment and an albuterol neb treatment in the ER. You are also given Solu-Medrol 125 mg by IV in the ER. Tomorrow take prednisone 60 mg daily for 5 days. Follow-up in one to 2 days with her primary medical doctor. Prescriptions: Prednisone 20 mg [Deltasone 20 mg] 3 tab PO DAILY #15 tablet
[2017-08-20] MEDS ORDERED: DUONEB 0.5-3 MG/3 ml Neb IH ONE ×2 (16:52→17:25)
[2017-08-20] MEDS ORDERED: solu-MEDROL 125 MG IV ONE (16:52)
[2017-08-20] MEDS ORDERED: Lasix 40 MG/4 ML IV ONE (16:52)
[2017-08-20] MEDS ORDERED: solu-MEDROL 125 MG ONE (17:43)
[2017-08-20] MEDS ORDERED: Lasix 40 MG/4 ML ONE (17:43)
[2017-08-20] MEDS ORDERED: PROVENTIL 2.5 MG/3 ML NEB IH ONE ×2 (18:05→18:18)
[2017-08-20 18:10] LABS: BASOPHIL % 0.4 % (0.0-0.4); Basophil (Absolute #) 0.04 (0-0.4); Eosinophil % 1.4 % (0.00-5.0); Eosinophil (Absolute #) 0.16 (0-0.5); Granulocyte Absolute (ANC) 5.54 (1.4-6.9); Granulocytes % 48.4 % (36.0-66.0); Hematocrit 38.9 % (35-47); Hemoglobin 12.8 gm/dl (12.0-16.0); Lymphocyte (Absolute #) 4.84 (1.0-4.6); Lymphocytes % 42.4 % (24.0-44.0); Mean Cell Volume 87.4 fl (78-100); Mean Corpuscular Hemoglobin 28.8 pg (26-32); Mean Corpuscular Hgb Concent. 32.9 g/dl (32-36); Mean Platelet Volume 11.6 fl (6-9.5); Monocyte (Absolute #) 0.84 (0.0-1.3); Monocytes % 7.4 % (0.0-12.0); Platelet Count 275 K/mm3 (150-450); Red Blood Count 4.45 M/mm3 (4.1-5.4); Red Cell Distribution Width 14.4 % (11.5-14.0); White Blood Count 11.4 K/mm3 (4.0-10.5)
[2017-08-20 18:26] VITALS: PULSE 79
[2017-08-20 18:40] LABS: ALBUMIN 4.4 g/dL (3.4-5.0); ALKALINE PHOSPHATASE 98 U/L (46-116); ANION GAP 17.9 MEQ/L (5-15); BLOOD UREA NITROGEN 21 mg/dL (9-20); CHLORIDE 101 mEq/L (98-107); Calcium 9.4 mg/dL (8.5-10.1); Carbon Dioxide 22.4 mEq/L (21-32); Creatinine 1 0.82 mg/dl (0.55-1.30); EST GLOMERULAR FILTRATION RATE > 60 ML/MIN; Glucose 111 MG/DL (70-110); NT PRO BNP 55 pg/ml (0-125); Potassium 4.1 mEq/L (3.5-5.1); SGOT/AST 39 U/L (15-37); SGPT/ALT 39 U/L (12-78); SODIUM 137 mEq/L (136-145); Total Protein 8.5 gm/dL (6.4-8.2)
[2017-08-20 19:49] VITALS: O2SAT 99
--- NOTE | 2017-08-20 19:53 | XRAY ---
Indication: Short of breath. Comparison: March 06, 2017. PA/lateral chest again demonstrates normal heart, lungs, and bony thorax with a few incidental calcified granulomas.
== END 2017-08-20 20:06 | disposition home or self-care (01) ==
LOC: ED 15:47
DX: J44.1 Chronic obstructive pulmonary disease with (acute) exacerbation (principal); I10 Essential (primary) hypertension; F17.200 Nicotine dependence, unspecified, uncomplicated; G89.29 Other chronic pain; E11.9 Type 2 diabetes mellitus without complications; Z79.899 Other long term (current) drug therapy; Z79.891 Long term (current) use of opiate analgesic
CPT/HCPCS: 36000; 36415; 71046; 80053; 83880; 84484; 85025; 93041; 94150; 94640; 96374; 96375; 99283; 99285; J1940; J2930; A9270-GY

== ENCOUNTER 2017-09-04 09:07 | Day surgery (SDC) | payer OTHER ==
--- NOTE | 2017-09-04 09:03 | HP ---
DATE OF SURGERY: 09/04/2017 HISTORY OF PRESENT ILLNESS: The patient is a 57 year-old has been on Motrin for back pain, had some bright blood per rectum recently. She had chronic lower abdominal aches and pains. No recent changes. PAST MEDICAL HISTORY: She has had some arthritis. She has had some depression, reflux, diabetes, chronic obstructive pulmonary disease and hypertension. She is a little bit hard of hearing. She has some anxiety and depression as well. PAST SURGICAL HISTORY: She may have had a colonoscopy a few years ago with a polyp but a little vague on the details on that. MEDICATIONS: Albuterol, amlodipine, Buspar, Flonase, Breo Ellipta, Lasix, Neurontin, Glucotrol, hydrochlorothiazide, Gautier, Atarax, Glucophage, Movantik, Pamelor, Prilosec, Nystatin, Seroquel and Desyrel. ALLERGIES: BLOOD PRESSURE MEDICATION THE NAME OF WHICH SHE DID NOT KNOW. FAMILY HISTORY: Heart disease, chronic obstructive pulmonary disease and other types of cancer but no known colon cancer. The patient is a little bit of a poor historian. SOCIAL HISTORY: Half pack per day smoker. She does drink some alcohol but denies abuse. REVIEW OF SYSTEMS: Twelve systems reviewed per admission assessment. No chest pain or palpitations other systems negative or noncontributory as above and per preadmission questionnaire. PHYSICAL EXAMINATION: GENERAL: No acute distress. HEENT: Sclerae nonicteric. NECK: No JVD. CHEST: Equal excursion, nonlabored breathing. CVS: Regular rate and rhythm. ABDOMEN: Soft. No peritoneal signs. EXTREMITIES: No significant edema. NEURO: Alert, moving extremities symmetrically. No gross motor deficits noted. RECTAL: Deferred timed to endoscopy exam. IMPRESSION: History of rectal bleeding, history of polyps six years ago according to the patient. I feel she will benefit from colonoscopy. Risks and benefits explained in detail but not limited to bleeding or infection, risk of bowel injury or perforation possibly requiring open procedure, small risk of missed or nondiagnosis or incomplete exam possibly requiring barium enema, general risk of anesthesia or sedation, risk of bowel prep, postoperative risk of nausea or cramping but not limited to, possibility of inability to diagnose the etiology of her rectal bleeding. She understands all the above but not limited to, will proceed with colonoscopy as an outpatient.
[2017-09-04] MEDS ORDERED: Versed 2 MG/2 ML Injection IV ONE (09:08)
[2017-09-04] MEDS ORDERED: DIPRIVAN 200 MG/20 ML IV ONE (09:08)
[2017-09-04] MEDS ORDERED: Lactated Ringers 1,000 ML IV ONE (09:28)
[2017-09-04] MEDS ORDERED: Lactated Ringers 1,000 ML IV SCH (09:30)
[2017-09-04 12:44] VITALS: PULSE 66; O2SAT 98
[2017-09-04 13:21] VITALS: BP 147/82
--- NOTE | 2017-09-05 08:40 | OP ---
SURGERY DATE/TIME: 09/04/2017 1105 PREOPERATIVE DIAGNOSIS: History of polyps. History of some rectal bleeding. POSTOPERATIVE DIAGNOSES: 1) Poor prep limiting colon exam. 2) Very tortuous colon. 3) A 1.2 cm polyp sigmoid colon on broad base stalk. 4) Polyp descending, ascending with raised lesion sigmoid and rectosigmoid colon. 5) Diverticulosis. 6) Internal and external hemorrhoids. 7) Very tortuous colon. PROCEDURES: 1) Colonoscopy to cecum with hot snare polypectomy sigmoid colon polyp with ink spot tattooing of location. 2) Hot snare polypectomy descending colon polyp. 3) Hot biopsy removal of small ascending colon, sigmoid colon polyps as well as small raised lesion sigmoid colon and rectal area small raised lesion versus early polyps. SURGEON: Dr. Kilo Ray. ANESTHESIA: MAC. ESTIMATED BLOOD LOSS: Minimal. INDICATIONS: As noted above. Risks and benefits explained in detail but not limited to and consent obtained. DESCRIPTION OF PROCEDURE AND FINDINGS: The patient is taken to the operating room. After MAC anesthesia induced and time out and no disagreement with planned procedure, digital rectal exam did not reveal any rectal masses. She did have some small internal and external hemorrhoids. Video colonoscope inserted and passed up through the poorly prepped colon. Moderate diverticulosis in the left colon. She had 1.2 cm sigmoid polyp on a broad based stalk. The scope was slowly and carefully navigated up past through this descending colon and polyp removed with hot snare polypectomy with brief bursts of cautery. Good hemostasis noted. Size about 3 mm or so removed with hot snare elevating away from bowel wall with brief bursts of cautery. Scope passed back down the transverse colon to the ascending colon. She had such a very tortuous colon it took quite some time positioning back and forth from back to side, multiple staff members for external pressure, the scope was finally passed down the ascending colon to cecum. Appendiceal orifice and valve visualized. Prep overall was poor with several areas of liquidy semi-solid and solid stool limiting the exam. It was suction irrigated as well as possible but did limit the exam. The scope was slowly and carefully withdrawn. Small early polyp removed from ascending colon with brief bursts of cautery. Good hemostasis noted. Whether this is hyperplastic or early true polyp was removed. The scope pulled back to the transverse colon, sigmoid colon, back towards the sigmoid colon where the largest polyp was removed with hot snare polypectomy with some snare at the base of its broad based stalk brief bursts of cautery. Good hemostasis noted. It was retrieved and passed off this was 1.2 cm in size in vivo. Ink spot tattoo was injected at the base in a couple different locations to raymond the location. There were some other smaller raised slightly distal to this area in the sigmoid colon raised lesion versus hyperplastic lesion versus early polyps removed with hot biopsy forceps with brief bursts of cautery. Good hemostasis noted. The scope pulled back into the rectosigmoid and rectum. Additional small raised lesions removed with brief bursts of cautery hot biopsy forceps. Good hemostasis noted. There was some mild inflammation in the rectum that was biopsied including removal of these small raised lesions. Otherwise she had some internal and external hemorrhoids. No signs of any active bleeding. The scope is withdrawn. The patient tolerated the procedure well. There were no immediate complications. Findings discussed with the family out in the waiting area. Will await final path to determine benign polyp, follow up endoscopy schedule, await final path.
== END 2017-09-04 12:45 | disposition home or self-care (01) ==
LOC: SDC 09:07
PROVIDERS: ATTEND Surgery
PROC: 0DBM8ZX Excision of Descending Colon, Via Natural or Artificial Opening Endoscopic, Diagnostic (ICD-10-PCS; principal; 2017-09-04)
PROC: 0DBN8ZX Excision of Sigmoid Colon, Via Natural or Artificial Opening Endoscopic, Diagnostic (ICD-10-PCS; 2017-09-04)
PROC: 3E0H8GC Introduction of Other Therapeutic Substance into Lower GI, Via Natural or Artificial Opening Endoscopic (ICD-10-PCS; 2017-09-04)
PROC: 0DBK8ZX Excision of Ascending Colon, Via Natural or Artificial Opening Endoscopic, Diagnostic (ICD-10-PCS; 2017-09-04)
PROC: 0DBN8ZX Excision of Sigmoid Colon, Via Natural or Artificial Opening Endoscopic, Diagnostic (ICD-10-PCS; 2017-09-04)
DX: K63.5 Polyp of colon (principal); Z86.010 Personal history of colon polyps; K62.5 Hemorrhage of anus and rectum; Q43.8 Other specified congenital malformations of intestine; K57.90 Diverticulosis of intestine, part unspecified, without perforation or abscess without bleeding; K64.4 Residual hemorrhoidal skin tags; K64.8 Other hemorrhoids; M19.90 Unspecified osteoarthritis, unspecified site; F32.9 Major depressive disorder, single episode, unspecified; E11.9 Type 2 diabetes mellitus without complications; J44.9 Chronic obstructive pulmonary disease, unspecified; I50.9 Heart failure, unspecified; I10 Essential (primary) hypertension; F41.8 Other specified anxiety disorders; Z79.899 Other long term (current) drug therapy; F17.200 Nicotine dependence, unspecified, uncomplicated
CPT/HCPCS: 00812; 88305; J2250; J2704

== ENCOUNTER 2017-09-05 11:46 | Emergency (ER) | payer OTHER ==
[2017-09-05] MEDS ORDERED: Zofran 4 MG/2 ML VIAL IV ONE (12:18)
[2017-09-05] MEDS ORDERED: Hydromorphone 1 mg/ml Ampule IV ONE (12:18)
--- NOTE | 2017-09-05 12:23 | ERPHSYRPT ---
- History of Present Illness Time Seen by Provider: 09/05/17 12:12 Historian: patient, family (sister) Patient Subjective Stated Complaint: states had colonoscopy yesterday per dr. ray. last night began having lower abd pain and pressure. states has not passed any flatus or had bm since scope. also having difficulty urinating Triage Nursing Assessment: abd soft, distended. normal bowel sounds throughout. Physician History: CC: abd pain Hx: 57 y/o patient of Dr Terrazas. She had colonoscopy with polypectomy yesterday. No stool and not passing gas. Today abd is distended, and she has lower abd pain. No bleeding. No fever or chills. No vomiting. Pain moderate. Timing/Duration: today Quality: aching Allergies/Adverse Reactions: lisinopril Allergy (Verified 09/05/17 11:58) Home Medications: Amlodipine Besylate 10 mg [Norvasc 10 MG] 10 mg PO DAILY 09/03/14 [History] Hydrochlorothiazide 25 mg PO DAILY 09/03/14 [History] Albuterol 8 gm Mdi Hfa [Ventolin Hfa MDI] 18 gm IH Q4-6HPRN PRN 03/09/16 [ History] Fluticasone/Vilanterol [Breo Ellipta 100-25 Mcg INH] 1 each IH DAILY 03/09/16 [ History] Furosemide 20 mg [Lasix 20 mg] 40 mg PO DAILY 03/09/16 [History] Fluticasone Propionate [Flonase NASAL] 2 spray NS DAILY 03/13/16 [History] Nystatin [Nystatin Susp] 1 ml PO QID 03/13/16 [History] Gabapentin [Neurontin] 600 mg PO TID 09/29/16 [History] Glipizide 5 mg [Glucotrol 5 MG] 5 mg PO BID 09/29/16 [History] Metformin HCl [Glucophage] 1,000 mg PO BID 09/29/16 [History] Nortriptyline HCl [Pamelor] 25 mg PO HS 09/29/16 [History] Omeprazole [Prilosec] 40 mg PO DAILY 09/29/16 [History] Promethazine HCl 25 mg [Phenergan 25 mg] 25 mg PO Q8HPRN PRN 09/29/16 [ History] Quetiapine Fumarate [Seroquel] 100 mg PO HS 09/29/16 [History] Trazodone HCl [Desyrel] 100 mg PO HS 09/29/16 [History] Hydrocodone/APAP 10/325 mg [[place] 10/325 MG Tablet] 1 tab PO Q4-6HPRN PRN 11/04/16 [History] Hydroxyzine HCl 25 mg [Atarax 25 mg] 25 mg PO BIDPRN PRN 01/24/17 [History ] Buspirone HCl [Buspar] 7.5 mg PO BID 03/27/17 [History] Bupropion HCl [Bupropion HCl Sr] 150 mg PO BID 08/29/17 [History] Potassium Chloride 10 Meq Tab* [Klor Con 10 MEQ] 10 meq PO BID 08/29/17 [ History] Metoprolol Tartrate 25 mg [Lopressor 25MG Tab] 25 mg PO STAT 09/04/17 [ History] Hx Tetanus, Diphtheria Vaccination/Date Given: Yes Hx Influenza Vaccination/Date Given: Yes Hx Pneumococcal Vaccination/Date Given: Yes - Review of Systems Constitutional: No Fever, No Chills Eyes: No Symptoms Ears, Nose, & Throat: No Symptoms Respiratory: No Cough, No Dyspnea Cardiac: No Chest Pain Abdominal/Gastrointestinal: Abdominal Pain, No Nausea, No Vomiting, No Diarrhea , No Constipation Genitourinary Symptoms: No Dysuria Skin: No Rash Neurological: No Headache All Other Systems: Reviewed and Negative - Past Medical History Pertinent Past Medical History: Yes Neurological History: Migraines, TIA ENT History: No Pertinent History Cardiac History: Hypertension Respiratory History: COPD, Sleep Apnea Endocrine Medical History: Diabetes Type II Musculoskeletal History: Osteoarthritis GI Medical History: No Pertinent History History: No Pertinent History Psycho-Social History: Anxiety, Depression Female Reproductive Disorders: No Pertinent History Other Medical History: depression, anxiety - Past Surgical History Past Surgical History: Yes Neuro Surgical History: No Pertinent History Cardiac: No Pertinent History Respiratory: No Pertinent History Gastrointestinal: Cholecystectomy Genitourinary: No Pertinent History Musculoskeletal: No Pertinent History Female Surgical History: Section Other Surgical History: colonoscopy - Social History Smoking Status: Current every day smoker How long have you smoked: 39 Exposure to second hand smoke: Yes Drug Use: none Patient Lives Alone: No - Female History Hx Now: No - Nursing Vital Signs Nursing Vital Signs: Initial Vital Signs Temperature 98.3 F 09/05/17 11:54 Pulse Rate 83 09/05/17 11:54 Respiratory Rate 18 09/05/17 11:54 Blood Pressure 167/91 09/05/17 11:54 O2 Sat by Pulse Oximetry 96 09/05/17 11:54 Pain Scale Pain Intensity 8 - Physical Exam General Appearance: alert Eye Exam: PERRL/EOMI Ears, Nose, Throat Exam: normal ENT inspection, moist mucous membranes Neck Exam: normal inspection, non-tender, supple Respiratory Exam: normal breath sounds, lungs clear Cardiovascular Exam: regular rate/rhythm Gastrointestinal/Abdomen Exam: soft, tenderness (lower abd with mild guarding), distention Back Exam: normal inspection Extremity Exam: normal inspection, normal range of motion, No calf tenderness, No pedal edema Neurologic Exam: alert, oriented x 3, cooperative, sensation nml, No motor deficits Skin Exam: warm, dry, No rash SpO2 Interpretation: normal SpO2: 96 Oxygen Delivery: Room Air - Course Nursing assessment & vital signs reviewed: Yes - CT Exams abd/pelvis CT Interpretation: Tele-radiologist Report (stable colonic diverticulosis, splenomegaly, left renal cyst. No acute.) Ordered Tests: Active Orders 24 hr Category Date Time Status Catheter-Reynolds Ceja STAT Care 09/05/17 12:18 Active IV Insertion STAT Care 09/05/17 12:18 Active NPO (ED) STAT Care 09/05/17 12:18 Active ABDOMEN AND PELVIS W CONTRAST [CT] Stat Exams 09/05/17 12:18 Completed CBC W DIFF Stat Lab 09/05/17 12:46 Completed CMP Stat Lab 09/05/17 12:46 Completed CULTURE,URINE Stat Lab 09/05/17 13:20 Received Lactic Acid Stat Lab 09/05/17 12:18 Completed UA W/ MICROSCOPIC Stat Lab 09/05/17 13:20 Completed Medication Summary Discontinued Medications Generic Name Dose Route Start Last Admin Trade Name Freq PRN Reason Stop Dose Admin Hydromorphone HCl 1 mg 09/05/17 12:18 09/05/17 13:05 Hydromorphone 1 Mg/Ml Ampule IV 09/05/17 12:19 1 mg STAT ONE Administration Hydromorphone HCl Confirm 09/05/17 12:54 Dilaudid 2 Mg Injection Administered 09/05/17 12:55 Dose 2 mg .ROUTE .STK-MED ONE Ondansetron HCl 4 mg 09/05/17 12:18 09/05/17 12:56 Zofran 4 Mg/2 Ml Vial IV 09/05/17 12:19 4 mg STAT ONE Administration Ondansetron HCl Confirm 09/05/17 12:54 Zofran 4 Mg/2 Ml Vial Administered 09/05/17 12:55 Dose 4 mg .ROUTE .STK-MED ONE Lab/Rad Data: Laboratory Result Diagrams 09/05/17 12:46 09/05/17 12:46 Laboratory Results 09/05/17 09/05/17 09/05/17 Range/Units 13:20 12:46 12:46 WBC 10.0 (4.0-10.5) K/mm3 RBC 3.95 L (4.1-5.4) M/mm3 Hgb 11.6 L (12.0-16.0) gm/dl Hct 35.5 (35-47) % MCV 89.9 (78-100) fl MCH 29.3 (26-32) pg MCHC 32.7 (32-36) g/dl RDW 15.5 H (11.5-14.0) % Plt Count 199 (150-450) K/mm3 MPV 11.0 H (6-9.5) fl Gran % 68.5 H (36.0-66.0) % Lymphocytes % 24.2 (24.0-44.0) % Monocytes % 5.8 (0.0-12.0) % Eosinophils % 1.1 (0.00-5.0) % Basophils % 0.4 (0.0-0.4) % Basophils # 0.04 (0-0.4) Sodium 140 (137-145) mmol/L Potassium 4.7 (3.5-5.1) mmol/L Chloride 107 (98-107) mEq/L Carbon Dioxide 22 (22-30) mmol/L Anion Gap 14.9 MEQ/L BUN 16 (7-17) mg/dl Creatinine 0.66 (0.52-1.04) mg/dl Estimated GFR > 60 ML/MIN Glucose 118 H (74-106) mg/dL Lactic Acid (0.4-2.0) Calcium 9.1 (8.4-10.2) mg/dl Total Bilirubin 0.70 (0.2-1.3) mg/d? AST 24 (14-36) U/L ALT 18 (0-35) U/L Alkaline Phosphatase 66 (38-126) U/L Serum Total Protein 7.2 (6.3-8.2) mg/dl Albumin 4.2 (3.5-5.0) g/dl Ur Collection Type VOID Urine Color YELLOW (YELLOW) Urine Appearance CLEAR (CLEAR) Urine pH 5.0 (5-6) Ur Specific [place] 1.015 (1.005-1.025) Urine Protein TRACE (Negative) Urine Ketones NEGATIVE (NEGATIVE) Urine Blood NEGATIVE (0-5) Irineo/ul Urine Nitrite NEGATIVE (NEGATIVE) Urine Bilirubin SMALL (NEGATIVE) Urine Urobilinogen 4 (0-1) mg/dL Ur Leukocyte Esterase TRACE (NEGATIVE) Urine Culture Reflexed YES (NO) Urine Glucose NEGATIVE (NEGATIVE) mg/dL Specimen Received 09/05/17 1320 09/05/17 Range/Units 12:18 WBC (4.0-10.5) K/mm3 RBC (4.1-5.4) M/mm3 Hgb (12.0-16.0) gm/dl Hct (35-47) % MCV (78-100) fl MCH (26-32) pg MCHC (32-36) g/dl RDW (11.5-14.0) % Plt Count (150-450) K/mm3 MPV (6-9.5) fl Gran % (36.0-66.0) % Lymphocytes % (24.0-44.0) % Monocytes % (0.0-12.0) % Eosinophils % (0.00-5.0) % Basophils % (0.0-0.4) % Basophils # (0-0.4) Sodium (137-145) mmol/L Potassium (3.5-5.1) mmol/L Chloride (98-107) mEq/L Carbon Dioxide (22-30) mmol/L Anion Gap MEQ/L BUN (7-17) mg/dl Creatinine (0.52-1.04) mg/dl Estimated GFR ML/MIN Glucose (74-106) mg/dL Lactic Acid 1.2 (0.4-2.0) Calcium (8.4-10.2) mg/dl Total Bilirubin (0.2-1.3) mg/d? AST (14-36) U/L ALT (0-35) U/L Alkaline Phosphatase (38-126) U/L Serum Total Protein (6.3-8.2) mg/dl Albumin (3.5-5.0) g/dl Ur Collection Type Urine Color (YELLOW) Urine Appearance (CLEAR) Urine pH (5-6) Ur Specific [place] (1.005-1.025) Urine Protein (Negative) Urine Ketones (NEGATIVE) Urine Blood (0-5) Irineo/ul Urine Nitrite (NEGATIVE) Urine Bilirubin (NEGATIVE) Urine Urobilinogen (0-1) mg/dL Ur Leukocyte Esterase (NEGATIVE) Urine Culture Reflexed (NO) Urine Glucose (NEGATIVE) mg/dL Specimen Received - Progress Progress Note: 09/05/17 12:[address] to rule out colonic perforation or obstruction. 09/05/17 14:24 Pt is stable. No perforation. Dr Ray office called and he will see pt in ER. 09/05/17 15:50 Pt stable and drinking. Abd soft on recheck. Dr Mckay will see as followup. Counseled pt/family regarding: lab results, diagnosis, need for follow-up, rad results - Departure Time of Disposition: 15:51 Departure Disposition: Home Clinical Impression: post colonoscopy abdominal pain, Therapeutic opioid-induced constipation (OIC) Condition: Stable Critical Care Time: No Referrals: LUPIS EMMANUEL [Primary Care Provider] - VY RAY [COURTESY STAFF] - Instructions: Acute Abdomen (Belly Pain), Colonoscopy (DC) Additional Instructions: ABDOMINAL PAIN 1. There are several different causes for abdominal pain, some of which may not be able to be identified on initial examination. 2. The important thing to remember is that bodily functions can change in a short period of time. If you notice any of the following symptoms, return to the emergency department or consult your doctor immediately: A. Worsening pain or no improvement in the next 12 hours. B. Increasing, severe abdominal pain C. Blood in stool D. Black stools E. Persistent vomiting F. Fever or chills or other symptoms Usual post colonoscopy instructions. Follow up with Dr Emmanuel and Dr mckay this week. Return for passing blood, fever, concerns.
[2017-09-05 12:50] LABS: BASOPHIL % 0.4 % (0.0-0.4); Basophil (Absolute #) 0.04 (0-0.4); Eosinophil % 1.1 % (0.00-5.0); Eosinophil (Absolute #) 0.11 (0-0.5); Granulocyte Absolute (ANC) 6.84 (1.4-6.9); Granulocytes % 68.5 % (36.0-66.0); Hematocrit 35.5 % (35-47); Hemoglobin 11.6 gm/dl (12.0-16.0); Lymphocyte (Absolute #) 2.42 (1.0-4.6); Lymphocytes % 24.2 % (24.0-44.0); Mean Cell Volume 89.9 fl (78-100); Mean Corpuscular Hgb Concent. 32.7 g/dl (32-36); Monocyte (Absolute #) 0.58 (0.0-1.3); Monocytes % 5.8 % (0.0-12.0); Platelet Count 199 K/mm3 (150-450); Red Blood Count 3.95 M/mm3 (4.1-5.4); Red Cell Distribution Width 15.5 % (11.5-14.0)
[2017-09-05] MEDS ORDERED: DILAUDID 2 MG INJECTION ONE (12:54)
[2017-09-05] MEDS ORDERED: Zofran 4 MG/2 ML VIAL ONE (12:54)
[2017-09-05 12:57] LABS: Mean Corpuscular Hemoglobin 29.3 pg (26-32)
[2017-09-05 13:24] LABS: ALBUMIN 4.2 g/dl (3.5-5.0); ALKALINE PHOSPHATASE 66 U/L (38-126); ANION GAP 14.9 MEQ/L; BLOOD UREA NITROGEN 16 mg/dl (7-17); CHLORIDE 107 mEq/L (98-107); Calcium 9.1 mg/dl (8.4-10.2); Carbon Dioxide 22 mmol/L (22-30); Creatinine 1 0.66 mg/dl (0.52-1.04); Glucose 118 mg/dL (74-106); Potassium 4.7 mmol/L (3.5-5.1); SGOT/AST 24 U/L (14-36); SGPT/ALT 18 U/L (0-35); SODIUM 140 mmol/L (137-145); Total Protein 7.2 mg/dl (6.3-8.2)
[2017-09-05 13:26] LABS: Appearance CLEAR (CLEAR); Bilirubin SMALL (NEGATIVE); Blood NEGATIVE Ery/ul (0-5); Glucose NEGATIVE (NEGATIVE); Ketones NEGATIVE (NEGATIVE); Leukocyte Esterase TRACE (NEGATIVE); Nitrite NEGATIVE (NEGATIVE); Protein,Urine Dip TRACE (Negative); Specific Gravity 1.015 (1.005-1.025); Urobilinogen 4 mg/dL (0-1)
--- NOTE | 2017-09-05 14:15 | XRAY ---
Indication: Lower abdominal pain and pressure. Status post colonoscopy yesterday. Multiple contiguous axial images obtained through the abdomen and pelvis using 80 cc Isovue 370 contrast only. Comparison: CT renal stone study January 26, 2015. Lung bases demonstrates minimal bibasilar dependent atelectasis. No infiltrate or effusion. Heart is not enlarged. Noncontrasted stomach and bowel loops appear nonobstructed. Again minimal colonic diverticulosis without diverticulitis. Appendix not seen. No free fluid/air. Spleen remains enlarged today measuring 13 cm in greatest axial dimension again with several calcified granulomas. Stable 11 mm left mid renal cortical cyst, left ovary benign chunky calcification, cholecystectomy, and bilateral tubal ligation clips. New Ceja catheter empties the urinary bladder. Remaining liver, pancreas, adrenal glands, kidneys, ureters, and uterus appear unremarkable. Stable aortoiliac calcifications are noted AAA or pathologic retroperitoneal lymphadenopathy. Osseous structures intact again with minimal degenerative changes of the lower lumbar spine. Impression: 1. Stable colonic diverticulosis, splenomegaly, left renal cyst, and benign left ovary calcification. 2. No acute intra-abdominal/pelvic abnormalities. CT DI 22.18
[2017-09-05 15:53] VITALS: O2SAT 96
[2017-09-05 16:09] VITALS: BP 123/82; PULSE 96
[2017-09-05 16:45] LABS: Slide Review 1 YES
== END 2017-09-05 16:25 | disposition home or self-care (01) ==
LOC: ED 11:46
DX: R10.9 Unspecified abdominal pain (principal); Z98.890 Other specified postprocedural states; K59.03 Drug induced constipation; T40.2X5A Adverse effect of other opioids, initial encounter; Z79.899 Other long term (current) drug therapy; I10 Essential (primary) hypertension; J44.9 Chronic obstructive pulmonary disease, unspecified; G47.30 Sleep apnea, unspecified; Z86.73 Personal history of transient ischemic attack (TIA), and cerebral infarction without residual deficits; M19.90 Unspecified osteoarthritis, unspecified site; F41.8 Other specified anxiety disorders
CPT/HCPCS: 36000; 36415; 51702; 74177; 80053; 81000; 83605; 85025; 87086; 96374; 96375; 99283; 99284; J1170; J2405; P9612

== ENCOUNTER 2018-02-20 09:36 | Emergency (ER) | payer OTHER ==
[2018-02-20 10:11] LABS: BASOPHIL % 0.2 % (0.0-0.4); Basophil (Absolute #) 0.03 (0-0.4); Eosinophil % 0.5 % (0.00-5.0); Eosinophil (Absolute #) 0.06 (0-0.5); Granulocyte Absolute (ANC) 9.26 (1.4-6.9); Granulocytes % 74.6 % (36.0-66.0); Hematocrit 37.2 % (35-47); Hemoglobin 12.6 gm/dl (12.0-16.0); Lymphocytes % 20.1 % (24.0-44.0); Mean Cell Volume 85.5 fl (78-100); Mean Corpuscular Hgb Concent. 33.9 g/dl (32-36); Monocyte (Absolute #) 0.57 (0.0-1.3); Monocytes % 4.6 % (0.0-12.0); Platelet Count 289 K/mm3 (150-450); Red Blood Count 4.35 M/mm3 (4.1-5.4); Red Cell Distribution Width 14.9 % (11.5-14.0); White Blood Count 12.4 K/mm3 (4.0-10.5)
--- NOTE | 2018-02-20 10:13 | ERPHSYRPT ---
- History of Present Illness Time Seen by Provider: 02/20/18 10:08 Source: patient Exam Limitations: no limitations Physician History: This is a 57-year-old white female with history of migraines, TIA, high blood pressure, COPD, sleep apnea, diabetes, anxiety, depression. Patient arrives with complaint that she has been of saying the wrong words at time she feels like she has bugs on her head sometimes she feels like she has something on the top of her head symptoms has been going on for 1-1/2 weeks. Past medical history includes migraines, TIA, high blood pressure, COPD, sleep apnea, diabetes mellitus type 2, osteoarthritis, anxiety, depression. Past surgical history includes cholecystectomy, , tubal ligation Social history positive tobacco use positive alcohol use. Timing/Duration: week(s) (1-1/2 weeks) Severity: moderate Modifying Factors: Improves With: nothing Associated Symptoms: abdominal pain (abdominal distention), fever, headaches, No nausea, No vomiting, No shortness of breath, No heartburn, No diaphoresis, No cough, No chest pain, No loss of appetite, No malaise, No syncope, No seizure , No weakness Allergies/Adverse Reactions: lisinopril Allergy (Verified 02/20/18 10:37) Home Medications: Amlodipine Besylate 10 mg [Norvasc 10 MG] 10 mg PO DAILY 09/03/14 [History] Hydrochlorothiazide 25 mg PO DAILY 09/03/14 [History] Albuterol 8 gm Mdi Hfa [Ventolin Hfa MDI] 18 gm IH Q4-6HPRN PRN 03/09/16 [ History] Fluticasone/Vilanterol [Breo Ellipta 100-25 Mcg INH] 1 each IH DAILY 03/09/16 [ History] Furosemide 20 mg [Lasix 20 mg] 40 mg PO DAILY 03/09/16 [History] Fluticasone Propionate [Flonase NASAL] 2 spray NS DAILY 03/13/16 [History] Gabapentin [Neurontin] 600 mg PO TID 09/29/16 [History] Glipizide 5 mg [Glucotrol 5 MG] 5 mg PO BID 09/29/16 [History] Metformin HCl [Glucophage] 1,000 mg PO BID 09/29/16 [History] Nortriptyline HCl [Pamelor] 25 mg PO HS 09/29/16 [History] Quetiapine Fumarate [Seroquel] 100 mg PO HS 09/29/16 [History] Trazodone HCl [Desyrel] 100 mg PO HS 09/29/16 [History] Hydrocodone/APAP 10/325 mg [Whitharral 10/325 MG Tablet] 1 tab PO QDP PRN 11/04 [History] Buspirone HCl [Buspar] 7.5 mg PO BID 03/27/17 [History] Potassium Chloride 10 Meq Tab* [Klor Con 10 MEQ] 10 meq PO BID 08/29/17 [ History] Metoprolol Tartrate 25 mg [Lopressor 25MG Tab] 25 mg PO DAILY 09/04/17 [ History] Cyclobenzaprine HCl 10 mg [Cyclobenzaprine 10 MG] 10 mg PO DAILY 02/20/18 [History] Hydralazine HCl 50 mg PO QID 02/20/18 [History] Prednisone 20 mg [Deltasone 20 mg] 10 mg PO DAILY 02/20/18 [History] clonazePAM [Klonopin] 2 mg PO BID 02/20/18 [History] Hx Tetanus, Diphtheria Vaccination/Date Given: Yes Hx Influenza Vaccination/Date Given: Yes Hx Pneumococcal Vaccination/Date Given: Yes - Review of Systems Constitutional: No Fever, No Chills Eyes: No Symptoms Ears, Nose, & Throat: No Symptoms Respiratory: No Cough, No Dyspnea Cardiac: No Chest Pain, No Edema, No Syncope Abdominal/Gastrointestinal: Abdominal Pain (abdominal distention), No Nausea, No Vomiting, No Diarrhea, No Constipation, No Hematemesis, No Hematochezia, No Melena, No Dysphagia, No Appetite Changes Genitourinary Symptoms: No Dysuria Musculoskeletal: No Back Pain, No Neck Pain Skin: Other (patient states sometimes she has bugs crawling on her head) Neurological: Headache, Other (patient states sometimes saying the wrong words) , No Irritability, No Lethargy, No Paralysis, No Parasthesia, No Seizure, No Sensory Changes, No Speech Changes, No Tics, No Tremors, No Vertigo Psychological: No Symptoms Endocrine: No Symptoms All Other Systems: Reviewed and Negative - Past Medical History Pertinent Past Medical History: Yes Neurological History: Migraines, TIA ENT History: No Pertinent History Cardiac History: Hypertension Respiratory History: COPD, Sleep Apnea Endocrine Medical History: Diabetes Type II Musculoskeletal History: Osteoarthritis GI Medical History: No Pertinent History History: No Pertinent History Psycho-Social History: Anxiety, Depression Female Reproductive Disorders: No Pertinent History Other Medical History: depression, anxiety - Past Surgical History Past Surgical History: Yes Neuro Surgical History: No Pertinent History Cardiac: No Pertinent History Respiratory: No Pertinent History Gastrointestinal: Cholecystectomy Genitourinary: No Pertinent History Musculoskeletal: No Pertinent History Female Surgical History: Section Other Surgical History: colonoscopy - Social History Smoking Status: Current every day smoker How long have you smoked: 39 Exposure to second hand smoke: Yes Drug Use: none Patient Lives Alone: No - Nursing Vital Signs Nursing Vital Signs: Initial Vital Signs Temperature 98.3 F 02/20/18 09:42 Pulse Rate 92 H 02/20/18 09:42 Respiratory Rate 18 02/20/18 09:42 Blood Pressure 166/84 02/20/18 09:42 O2 Sat by Pulse Oximetry 99 02/20/18 09:42 Pain Scale Pain Intensity 9 - Physical Exam General Appearance: other (well-developed well-nourished white female, alert, oriented x 3 very pressured speech talking constantly throgh examuination) Eye Exam: PERRL/EOMI, eyes nml inspection Ears, Nose, Throat Exam: normal ENT inspection, TMs normal, pharynx normal, moist mucous membranes Neck Exam: normal inspection, non-tender, supple, full range of motion Respiratory Exam: normal breath sounds, lungs clear, No respiratory distress Cardiovascular Exam: regular rate/rhythm, normal heart sounds, normal peripheral pulses Gastrointestinal/Abdomen Exam: soft, normal bowel sounds, No tenderness, No mass Back Exam: normal inspection, normal range of motion, No CVA tenderness, No vertebral tenderness Extremity Exam: normal inspection, normal range of motion, pelvis stable Neurologic Exam: alert, oriented x 3, cooperative, 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 No acute intracran intracranial process is seen. No new low-attenuation as compared to March 13, 2016 2. Prior paranasal sinus disease within the posterior right ethmoid sinus and posterior right sphenoid sinus has significantly improved with only scant remaining mucosal thickening within the right side of the sphenoid sinus) Ordered Tests: Active Orders 24 hr Category Date Time Status Accucheck STAT Care 02/20/18 10:13 Active EKG-ER Only STAT Care 02/20/18 10:06 Active IV Insertion STAT Care 02/20/18 10:06 Active Pulse Oximetry (ED) STAT Care 02/20/18 10:06 Active HEAD WITHOUT CONTRAST [CT] Stat Exams 02/20/18 11:08 Completed ACETAMINOPHEN Stat Lab 02/20/18 10:00 Completed AMYLASE Stat Lab 02/20/18 10:00 Completed CBC W DIFF Stat Lab 02/20/18 10:06 Completed CMP Stat Lab 02/20/18 10:00 Completed CULTURE,URINE Stat Lab 02/20/18 10:26 Received ETHYL ALCOHOL Stat Lab 02/20/18 10:00 Completed SALICYLATE Stat Lab 02/20/18 10:00 Completed TSH [TSH, 3RD Generation] Stat Lab 02/20/18 11:07 Completed UA W/ MICROSCOPIC Stat Lab 02/20/18 10:26 Completed Urine Triage Profile Stat Lab 02/20/18 10:26 Completed Medication Summary Generic Name Dose Route Start Last Admin Trade Name Freq PRN Reason Stop Dose Admin Sodium Chloride 1,000 mls @ 100 mls/hr 02/20/18 10:15 02/20/18 10:20 Sodium Chloride 0.9% 1000 Ml IV 03/22/18 10:14 100 mls/hr .Q10H IVAN Administration Discontinued Medications Generic Name Dose Route Start Last Admin Trade Name Freq PRN Reason Stop Dose Admin Hydrocodone Bitart/Acetaminophen 1 tab 02/20/18 12:27 02/20/18 12:37 Whitharral 10/325 Mg Tablet PO 02/20/18 12:28 1 tab STAT ONE Administration Hydrocodone Bitart/Acetaminophen Confirm 02/20/18 12:37 [place]ral 10/325 Mg Tablet Administered 02/20/18 12:38 Dose 1 tab .ROUTE .STK-MED ONE Aspirin 162 mg 02/20/18 12:37 02/20/18 12:42 Baby Aspirin 81 Mg Chew PO 02/20/18 12:38 162 mg STAT ONE Administration Lab/Rad Data: Laboratory Result Diagrams 02/20/18 10:06 02/20/18 10:00 Laboratory Results 02/20/18 02/20/18 02/20/18 Range/Units Unknown 11:07 10:26 WBC (4.0-10.5) K/mm3 RBC (4.1-5.4) M/mm3 Hgb (12.0-16.0) gm/dl Hct (35-47) % MCV (78-100) fl MCH (26-32) pg MCHC (32-36) g/dl RDW (11.5-14.0) % Plt Count (150-450) K/mm3 MPV (6-9.5) fl Gran % (36.0-66.0) % Eos # (Auto) (0-0.5) Absolute Lymphs (auto) (1.0-4.6) Absolute Monos (auto) (0.0-1.3) Lymphocytes % (24.0-44.0) % Monocytes % (0.0-12.0) % Eosinophils % (0.00-5.0) % Basophils % (0.0-0.4) % Absolute Granulocytes (1.4-6.9) Basophils # (0-0.4) Sodium (137-145) mmol/L Potassium (3.5-5.1) mmol/L Chloride (98-107) mmol/L Carbon Dioxide (22-30) mmol/L Anion Gap (5-15) MEQ/L BUN (7-17) mg/dL Creatinine (0.52-1.04) mg/dL Estimated GFR ML/MIN Glucose (74-106) mg/dL Calcium (8.4-10.2) mg/dL Total Bilirubin (0.2-1.3) mg/dL AST (14-36) U/L ALT (0-35) U/L Alkaline Phosphatase (38-126) U/L Serum Total Protein (6.3-8.2) g/dL Albumin (3.5-5.0) g/dL Amylase (30-110) U/L Free T4 1.19 (0.76-1.46) ng/dL TSH 3rd Generation 0.319 L (0.47-4.68) mIU/L Ur Collection Type Urine Color (YELLOW) Urine Appearance (CLEAR) Urine pH (5-6) Ur Specific [place] (1.005-1.025) Urine Protein (Negative) Urine Ketones (NEGATIVE) Urine Blood (0-5) Irineo/ul Urine Nitrite (NEGATIVE) Urine Bilirubin (NEGATIVE) Urine Urobilinogen (0-1) mg/dL Ur Leukocyte Esterase (NEGATIVE) Urine Microscopic RBC (0-2) /HPF Urine Microscopic WBC (0-5) /HPF Ur Epithelial Cells (FEW) /HPF Urine Bacteria (NEGATIVE) /HPF Urine Culture Reflexed (NO) Urine Glucose (NEGATIVE) mg/dL Salicylates (2-20) mg/dL Urine Opiates Level POSITIVE (NEGATIVE) Ur Methadone NEGATIVE (NEGATIVE) Acetaminophen (10-30) ug/ml Urine Barbiturates NEGATIVE (NEGATIVE) Ur Phencyclidine (PCP) NEGATIVE (NEGATIVE) Urine Amphetamine NEGATIVE (NEGATIVE) U Benzodiazepine Level POSITIVE (NEGATIVE) Urine Cocaine NEGATIVE (NEGATIVE) Urine Marijuana (THC) POSITIVE (NEGATIVE) Ethyl Alcohol (0-10) mg/dL Specimen Received 02/20/18 02/20/18 02/20/18 Range/Units 10:26 10:06 10:00 WBC 12.4 H (4.0-10.5) K/mm3 RBC 4.35 (4.1-5.4) M/mm3 Hgb 12.6 (12.0-16.0) gm/dl Hct 37.2 (35-47) % MCV 85.5 (78-100) fl MCH 29.0 (26-32) pg MCHC 33.9 (32-36) g/dl RDW 14.9 H (11.5-14.0) % Plt Count 289 (150-450) K/mm3 MPV 11.0 H (6-9.5) fl Gran % 74.6 H (36.0-66.0) % Eos # (Auto) 0.06 (0-0.5) Absolute Lymphs (auto) 2.50 (1.0-4.6) Absolute Monos (auto) 0.57 (0.0-1.3) Lymphocytes % 20.1 L (24.0-44.0) % Monocytes % 4.6 (0.0-12.0) % Eosinophils % 0.5 (0.00-5.0) % Basophils % 0.2 (0.0-0.4) % Absolute Granulocytes 9.26 H (1.4-6.9) Basophils # 0.03 (0-0.4) Sodium 139 (137-145) mmol/L Potassium 3.9 (3.5-5.1) mmol/L Chloride 104 (98-107) mmol/L Carbon Dioxide 22 (22-30) mmol/L Anion Gap 17.1 H (5-15) MEQ/L BUN 17 (7-17) mg/dL Creatinine 0.52 (0.52-1.04) mg/dL Estimated GFR > 60.0 ML/MIN Glucose 207 H (74-106) mg/dL Calcium 9.4 (8.4-10.2) mg/dL Total Bilirubin 0.50 (0.2-1.3) mg/dL AST 27 (14-36) U/L ALT 33 (0-35) U/L Alkaline Phosphatase 100 (38-126) U/L Serum Total Protein 8.0 (6.3-8.2) g/dL Albumin 4.9 (3.5-5.0) g/dL Amylase 65 (30-110) U/L Free T4 (0.76-1.46) ng/dL TSH 3rd Generation (0.47-4.68) mIU/L Ur Collection Type VOID Urine Color YELLOW (YELLOW) Urine Appearance CLEAR (CLEAR) Urine pH 6.0 (5-6) Ur Specific [place] 1.015 (1.005-1.025) Urine Protein 2+ (Negative) Urine Ketones TRACE (NEGATIVE) Urine Blood 5-10 (0-5) Irineo/ul Urine Nitrite NEGATIVE (NEGATIVE) Urine Bilirubin SMALL (NEGATIVE) Urine Urobilinogen 1 (0-1) mg/dL Ur Leukocyte Esterase TRACE (NEGATIVE) Urine Microscopic RBC 0-2 (0-2) /HPF Urine Microscopic WBC 2-5 (0-5) /HPF Ur Epithelial Cells FEW (FEW) /HPF Urine Bacteria FEW (NEGATIVE) /HPF Urine Culture Reflexed YES (NO) Urine Glucose 50 (NEGATIVE) mg/dL Salicylates < 1.0 L (2-20) mg/dL Urine Opiates Level (NEGATIVE) Ur Methadone (NEGATIVE) Acetaminophen < 10 L (10-30) ug/ml Urine Barbiturates (NEGATIVE) Ur Phencyclidine (PCP) (NEGATIVE) Urine Amphetamine (NEGATIVE) U Benzodiazepine Level (NEGATIVE) Urine Cocaine (NEGATIVE) Urine Marijuana (THC) (NEGATIVE) Ethyl Alcohol < 10 (0-10) mg/dL Specimen Received 02/20/18 1015 - Progress Progress: improved Progress Note: 02/20/18 12:37 57-year-old white female with history of migraines, TIA, high blood pressure, COPD, sleep apnea, diabetes type 2, he osteoarthritis, anxiety, depression Patient arrives with complaint of what a half weeks of problems getting her words out she states she's had pain at the top of her head from time to time had a period of time several days ago where she felt like she couldn't feel the right side of her jaw On arrival patient has a somewhat pressured speech she is speaking continuously during the examination She does not appear to be in acute distress she has a normal neurologic exam 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 No acute intracranial bleed or other acute intracranial process is seen. The patient urine drug screen is positive for benzodiazepine, opiates , THC It is noted that patient is on Clonopin as well as Whitharral at home patient's white count is slightly elevated 12.4 hemoglobin is 12.6 hematocrit is 37.2 platelets are 289 chemistry is essentially normal with the exception of glucose of 207 patient's acetaminophen level was 17 with normal 5-15 urinalysis is essentially normal patient's vitals have been stable patient has been in no acute distress Will go ahead and plan on discharging patient will give patient 162 mg of aspirin orally. Will have patient continue aspirin 81 mg orally daily patient will be advised to follow-up with her family doctor. - Departure Time of Disposition: 12:41 Departure Disposition: Home Clinical Impression: Mental status change resolved, transient aphasia Condition: Fair Critical Care Time: No Referrals: LUPIS EMMANUEL [Primary Care Provider] - Additional Instructions: Return home. Continue medications and treatment as prescribed by your family doctor. Aspirin 81 mg orally daily. Follow-up with your family doctor, call in arrange an appointment for follow- up.. Return for acute distress or for severe symptoms.
[2018-02-20] MEDS ORDERED: Sodium Chloride 0.9% 1000 ML 1,000 ML IV SCH (10:15)
[2018-02-20] MEDS ORDERED: Sodium Chloride 0.9% 1000 ML 1,000 ML ONE (10:18)
[2018-02-20 10:35] LABS: ALBUMIN 4.9 g/dL (3.5-5.0); ALKALINE PHOSPHATASE 100 U/L (38-126); AMYLASE 65 U/L (30-110); ANION GAP 17.1 MEQ/L (5-15); BLOOD UREA NITROGEN 17 mg/dL (7-17); CHLORIDE 104 mmol/L (98-107); Calcium 9.4 mg/dL (8.4-10.2); Carbon Dioxide 22 mmol/L (22-30); Creatinine 1 0.52 mg/dL (0.52-1.04); Glucose 207 mg/dL (74-106); Potassium 3.9 mmol/L (3.5-5.1); SGOT/AST 27 U/L (14-36); SGPT/ALT 33 U/L (0-35); SODIUM 139 mmol/L (137-145)
[2018-02-20 10:38] LABS: ACETAMINOPHEN < 10 ug/ml (10-30); ETHYL ALCOHOL < 10 mg/dL (0-10); SALICYLATE < 1.0 mg/dL (2-20)
[2018-02-20 10:39] LABS: Appearance CLEAR (CLEAR); Bacteria FEW /HPF (NEGATIVE); Bilirubin SMALL (NEGATIVE); Epithelial Cells FEW /HPF (FEW); Glucose 50 mg/dL (NEGATIVE); Ketones TRACE (NEGATIVE); Leukocyte Esterase TRACE (NEGATIVE); Nitrite NEGATIVE (NEGATIVE); Protein,Urine Dip 2+ (Negative); RBC 0-2 /HPF (0-2); Specific Gravity 1.015 (1.005-1.025); Urobilinogen 1 mg/dL (0-1)
[2018-02-20 10:56] LABS: Amphetamine,Urine NEGATIVE (NEGATIVE); Barbiturate,Urine NEGATIVE (NEGATIVE); Benzodiazepine,Urine POSITIVE (NEGATIVE); Cocaine,Urine NEGATIVE (NEGATIVE); Methadone,Urine NEGATIVE (NEGATIVE); Opiate,Urine POSITIVE (NEGATIVE); PCP,Urine NEGATIVE (NEGATIVE); THC,Urine POSITIVE (NEGATIVE)
[2018-02-20 11:11] VITALS: O2SAT 98
[2018-02-20 11:59] VITALS: BP 120/80; PULSE 82
--- NOTE | 2018-02-20 12:17 | XRAY ---
Exam: CT of the head without IV contrast from 02/20/2018. CTDI: 67.99 Comparison: CT of the head without IV contrast from 03/13/2016. Indication: Slurred speech for one and one half weeks. Technique: Non-IV contrast axial images were obtained through the brain. Reconstructed coronal and sagittal images were created and reviewed. Findings: The ventricles appear of normal size and configuration. No focal mass effect or midline shift is seen. No acute intracranial bleed or abnormal extra-axial fluid collection is seen. The ryan matter-white matter interfaces appear essentially unremarkable. No low attenuation lesion is seen to suggest an acute or subacute territorial infarct. The cortical sulci and basilar cisterns appear unremarkable and are unchanged from 03/13/2016. There is some minimal vascular calcification within the carotid siphons. Prior soft tissue density within the posterior aspect of the right ethmoid sinus and right sphenoid sinus has almost cleared except for scant mucosal thickening within the right aspect of the sphenoid sinus. This is significantly improved. The calvarium of the skull appears intact. I again suspect some minor chronic mucosal thickening within the mastoid air cells on the right representing no change. Impression: 1. No acute intracranial bleed or other acute intracranial process is seen. I see no new low attenuation territorial infarct as compared to 03/13/2016. 2. Prior paranasal sinus disease within the posterior right ethmoid sinus and posterior right sphenoid sinus has significantly improved with only scant remaining mucosal thickening within the right side of the sphenoid sinus.
[2018-02-20] MEDS ORDERED: Norco 10/325 MG Tablet PO ONE (12:27)
[2018-02-20] MEDS ORDERED: Norco 10/325 MG Tablet ONE (12:37)
[2018-02-20] MEDS ORDERED: BABY ASPIRIN 81 MG CHEW PO ONE (12:37)
[2018-02-20] MEDS ORDERED: BABY ASPIRIN 81 MG CHEW ONE (20:59)
== END 2018-02-20 12:59 | disposition home or self-care (01) ==
LOC: ED 09:36
DX: R41.82 Altered mental status, unspecified (principal); R47.01 Aphasia; R10.9 Unspecified abdominal pain; Z79.899 Other long term (current) drug therapy
CPT/HCPCS: 36000; 36415; 70450; 80053; 80307; 81000; 82150; 82962; 84439; 84443; 85025; 87086; 93005; 96360; 96361; 99284; G0481; A9270-GY; G0480

== ENCOUNTER 2018-08-07 18:47 | Emergency (ER) | payer OTHER ==
--- NOTE | 2018-08-07 19:24 | ERPHSYRPT ---
- History of Present Illness Time Seen by Provider: 08/07/18 19:00 Source: patient Exam Limitations: no limitations Patient Subjective Stated Complaint: patient states she has had dizziness for three days. has been having health issues with swallowing and is being worked up for that. also states her blood sugar has been running high. Triage Nursing Assessment: ambulated to room per self. skin w/d, color normal, resp easy. patient very talkative. hands slightly trembling. a/o times three. joel Physician History: 58 y/o white female presents with multiple chronic issues which are being worked up as an outpt, including dizziness which is why pt came into ED tonight. pts dizziness worse in the last 3 days. pts pcp is dr. alonso. pt has an upper endoscopy scheduled, carotid doppler and mri scheduled in the next few weeks. pt denies head injury. pt was restarted on pain meds yesterday. pt denies abd pain, soa and denies cp. pt underwent a recent stress cardiac test. Timing/Duration: day(s) (chronic but worse in last 3 days) Severity: mild Character of Deficits: vision problems (intermittent, chronic) Baseline/Normal Cognition: alert oriented x 3 Current Cognition: alert oriented x 3 Baseline Gait: walks w/o assistance Associated Symptoms: vision changes (intermittent chronic), No confusion, No nausea, No vomiting, No weakness Allergies/Adverse Reactions: lisinopril Allergy (Verified 08/07/18 19:14) Home Medications: Amlodipine Besylate 10 mg [Norvasc 10 MG] 10 mg PO DAILY 09/03/14 [History] Hydrochlorothiazide 25 mg PO DAILY 09/03/14 [History] Albuterol 8 gm Mdi Hfa [Ventolin Hfa MDI] 18 gm IH Q4-6HPRN PRN 03/09/16 [ History] Fluticasone/Vilanterol [Breo Ellipta 100-25 Mcg INH] 1 each IH DAILY 03/09/16 [ History] Furosemide 20 mg [Lasix 20 mg] 40 mg PO DAILY 03/09/16 [History] Fluticasone Propionate [Flonase NASAL] 2 spray NS DAILY 03/13/16 [History] Gabapentin [Neurontin] 600 mg PO TID 09/29/16 [History] Metformin HCl [Glucophage] 1,000 mg PO BID 09/29/16 [History] Nortriptyline HCl [Pamelor] 25 mg PO HS 09/29/16 [History] Quetiapine Fumarate [Seroquel] 100 mg PO HS 09/29/16 [History] Trazodone HCl [Desyrel] 100 mg PO HS 09/29/16 [History] Hydrocodone/APAP 10/325 mg [[place] 10/325 MG Tablet] 7.5 mg PO TID [History] Potassium Chloride 10 Meq Tab* [Klor Con 10 MEQ] 20 meq PO BID 08/29/17 [ History] Metoprolol Tartrate 25 mg [Lopressor 25MG Tab] 25 mg PO DAILY 09/04/17 [ History] Cyclobenzaprine HCl 10 mg [Cyclobenzaprine 10 MG] 10 mg PO DAILY 02/20/18 [History] Hydralazine HCl 50 mg PO QID 02/20/18 [History] Prednisone 20 mg [Deltasone 20 mg] 10 mg PO DAILY 02/20/18 [History] Fluoxetine HCl 10 mg [Prozac 10 mg] 10 mg PO DAILY 08/07/18 [History] Quetiapine Fumarate [Seroquel] 50 mg PO DAILY 08/07/18 [History] Quetiapine Fumarate [Seroquel] 50 mg PO DAILY 08/07/18 [History] Hx Tetanus, Diphtheria Vaccination/Date Given: No Hx Influenza Vaccination/Date Given: Yes Hx Pneumococcal Vaccination/Date Given: Yes - Review of Systems Constitutional: No Symptoms Eyes: Vision Changes (intermittent chronic vision loss per pt) Ears, Nose, & Throat: No Symptoms Respiratory: No Symptoms, No Cough, No Dyspnea, No Stridor Cardiac: No Symptoms, No Chest Pain, No Palpitations, No Syncope Abdominal/Gastrointestinal: No Symptoms, No Abdominal Pain, No Nausea, No Vomiting Genitourinary Symptoms: No Symptoms Musculoskeletal: No Symptoms Skin: No Symptoms Neurological: Dizziness, No Headache, No Speech Changes Psychological: No Symptoms Endocrine: No Symptoms Hematologic/Lymphatic: No Symptoms Immunological/Allergic: No Symptoms All Other Systems: Reviewed and Negative - Past Medical History Pertinent Past Medical History: Yes Neurological History: Migraines, TIA ENT History: No Pertinent History Cardiac History: Hypertension Respiratory History: COPD, Sleep Apnea Endocrine Medical History: Diabetes Type II Musculoskeletal History: Osteoarthritis GI Medical History: No Pertinent History History: No Pertinent History Psycho-Social History: Anxiety, Depression Female Reproductive Disorders: No Pertinent History Other Medical History: depression, anxiety - Past Surgical History Past Surgical History: Yes Neuro Surgical History: No Pertinent History Cardiac: No Pertinent History Respiratory: No Pertinent History Gastrointestinal: Cholecystectomy Genitourinary: No Pertinent History Musculoskeletal: No Pertinent History Female Surgical History: Section Other Surgical History: colonoscopy - Social History Smoking Status: Current every day smoker How long have you smoked: 42 Exposure to second hand smoke: Yes Drug Use: none Patient Lives Alone: No - Female History Hx Now: No - Nursing Vital Signs Nursing Vital Signs: Initial Vital Signs Temperature 97.8 F 08/07/18 18:55 Pulse Rate 111 H 08/07/18 18:55 Respiratory Rate 18 08/07/18 18:55 Blood Pressure 152/98 08/07/18 18:55 O2 Sat by Pulse Oximetry 95 08/07/18 18:55 Pain Scale Pain Intensity 8 - Duff Coma Scale Best Eye Response (Duff): (4) open spontaneously Best Verbal Response (Gregg): (5) oriented Best Motor Response (Duff): (6) obeys commands Gregg Total: 15 - Physical Exam General Appearance: no apparent distress, alert, anxiety Eye Exam: bilateral eye: normal inspection, PERRL, EOMI Ears, Nose, Throat Exam: normal ENT inspection, TMs normal, moist mucous membranes Neck Exam: normal inspection, non-tender, supple, full range of motion Respiratory: normal breath sounds, lungs clear, airway intact, No chest tenderness, No respiratory distress, No accessory muscle use, No rhonchi, No wheezing, No stridor Cardiovascular: regular rate/rhythm, normal heart sounds, normal peripheral pulses Gastrointestinal: soft, normal bowel sounds, No tenderness, No guarding, No rebound Pelvic Exam: not done Rectal Exam: not done Back Exam: normal inspection, normal range of motion, No CVA tenderness, No vertebral tenderness Extremity Exam: normal inspection, normal range of motion, pelvis stable Mental Status: alert, oriented x 3, cooperative recreational aide Exam: normal hearing, normal speech, PERRL Coordination/Gait: normal finger to nose, normal gait Motor/Sensory: no motor deficit, no sensory deficit, no pronator drift Skin Exam: normal color, warm, dry SpO2 Interpretation: normal SpO2: 95 O2 Delivery: Room Air - Course Nursing assessment & vital signs reviewed: Yes EKG Interpreted by Me: RATE ([id number]), Sinus Tach, NORMAL AXIS, Non-specific ST Changes, Other (comparison ekg 02/20/18 new mild tachycardia) Ordered Tests: Active Orders 24 hr Category Date Time Status ACCUCHECK [Accucheck] STAT Care 08/07/18 19:03 Active Clean Catch Urine Specimen STAT Care 08/07/18 19:29 Active EKG-ER Only STAT Care 08/07/18 19:03 Active IV Insertion STAT Care 08/07/18 19:29 Active HEAD WITHOUT CONTRAST [CT] Stat Exams 08/07/18 19:30 Taken CBC W DIFF Stat Lab 08/07/18 19:10 Completed CMP Stat Lab 08/07/18 19:10 Completed TROPONIN Q3H Lab 08/07/18 19:10 Completed TROPONIN Q3H Lab 08/07/18 22:30 Ordered TROPONIN Q3H Lab 08/08/18 01:30 Ordered TROPONIN Q3H Lab 08/08/18 04:30 Ordered TROPONIN Q3H Lab 08/08/18 07:30 Ordered UA W/RFX UR CULTURE Stat Lab 08/07/18 19:40 Completed Urine Triage Profile Stat Lab 08/07/18 19:40 Completed Lab/Rad Data: Laboratory Result Diagrams 08/07/18 19:10 08/07/18 19:10 Laboratory Results 08/07/18 08/07/18 08/07/18 Range/Units 19:40 19:40 19:10 WBC (4.0-10.5) K/mm3 RBC (4.1-5.4) M/mm3 Hgb (12.0-16.0) gm/dl Hct (35-47) % MCV (78-100) fl MCH (26-32) pg MCHC (32-36) g/dl RDW (11.5-14.0) % Plt Count (150-450) K/mm3 MPV (6-9.5) fl Gran % (36.0-66.0) % Eos # (Auto) (0-0.5) Absolute Lymphs (auto) (1.0-4.6) Absolute Monos (auto) (0.0-1.3) Lymphocytes % (24.0-44.0) % Monocytes % (0.0-12.0) % Eosinophils % (0.00-5.0) % Basophils % (0.0-0.4) % Absolute Granulocytes (1.4-6.9) Basophils # (0-0.4) Sodium (137-145) mmol/L Potassium (3.5-5.1) mmol/L Chloride (98-107) mmol/L Carbon Dioxide (22-30) mmol/L Anion Gap (5-15) MEQ/L BUN (7-17) mg/dL Creatinine (0.52-1.04) mg/dL Estimated GFR ML/MIN Glucose (74-106) mg/dL Calcium (8.4-10.2) mg/dL Total Bilirubin (0.2-1.3) mg/dL AST (14-36) U/L ALT (0-35) U/L Alkaline Phosphatase (38-126) U/L Troponin I < 0.012 (0.000-0.034) ng/mL Serum Total Protein (6.3-8.2) g/dL Albumin (3.5-5.0) g/dL Urine Color YELLOW (YELLOW) Urine Appearance CLEAR (CLEAR) Urine pH 6.0 (5-6) Ur Specific Conifer 1.015 (1.005-1.025) Urine Protein 100 (Negative) Urine Ketones NEGATIVE (NEGATIVE) Urine Blood NEGATIVE (0-5) Irineo/ul Urine Nitrite NEGATIVE (NEGATIVE) Urine Bilirubin NEGATIVE (NEGATIVE) Urine Urobilinogen NEGATIVE (0-1) mg/dL Ur Leukocyte Esterase NEGATIVE (NEGATIVE) Urine WBC (Auto) 3-5 (0-5) /HPF Urine RBC (Auto) 0-2 (0-2) /HPF U Hyaline Cast (Auto) 6-10 (0-2) /LPF U Epithel Cells (Auto) FEW (FEW) /HPF Urine Bacteria (Auto) FEW (NEGATIVE) /HPF Urine Mucus (Auto) SLIGHT (NEGATIVE) /HPF Urine Culture Reflexed NO (NO) Urine Glucose NEGATIVE (NEGATIVE) mg/dL Urine Opiates Level POSITIVE (NEGATIVE) Ur Methadone NEGATIVE (NEGATIVE) Urine Barbiturates NEGATIVE (NEGATIVE) Ur Phencyclidine (PCP) NEGATIVE (NEGATIVE) Urine Amphetamine NEGATIVE (NEGATIVE) U Benzodiazepine Level NEGATIVE (NEGATIVE) Urine Cocaine NEGATIVE (NEGATIVE) Urine Marijuana (THC) NEGATIVE (NEGATIVE) 08/07/18 08/07/18 Range/Units 19:10 19:10 WBC 15.8 H (4.0-10.5) K/mm3 RBC 4.96 (4.1-5.4) M/mm3 Hgb 13.9 (12.0-16.0) gm/dl Hct 41.7 (35-47) % MCV 84.1 (78-100) fl MCH 28.0 (26-32) pg MCHC 33.3 (32-36) g/dl RDW 15.8 H (11.5-14.0) % Plt Count 345 (150-450) K/mm3 MPV 12.2 H (6-9.5) fl Gran % 69.0 H (36.0-66.0) % Eos # (Auto) 0.03 (0-0.5) Absolute Lymphs (auto) 3.89 (1.0-4.6) Absolute Monos (auto) 0.95 (0.0-1.3) Lymphocytes % 24.6 (24.0-44.0) % Monocytes % 6.0 (0.0-12.0) % Eosinophils % 0.2 (0.00-5.0) % Basophils % 0.2 (0.0-0.4) % Absolute Granulocytes 10.90 H (1.4-6.9) Basophils # 0.03 (0-0.4) Sodium 137 (137-145) mmol/L Potassium 3.2 L (3.5-5.1) mmol/L Chloride 94 L (98-107) mmol/L Carbon Dioxide 26 (22-30) mmol/L Anion Gap 20.0 H (5-15) MEQ/L BUN 25 H (7-17) mg/dL Creatinine 1.03 (0.52-1.04) mg/dL Estimated GFR 58.9 ML/MIN Glucose 206 H (74-106) mg/dL Calcium 11.5 H (8.4-10.2) mg/dL Total Bilirubin 0.70 (0.2-1.3) mg/dL AST 58 H (14-36) U/L ALT 68 H (0-35) U/L Alkaline Phosphatase 95 (38-126) U/L Troponin I (0.000-0.034) ng/mL Serum Total Protein 9.0 H (6.3-8.2) g/dL Albumin 5.4 H (3.5-5.0) g/dL Urine Color (YELLOW) Urine Appearance (CLEAR) Urine pH (5-6) Ur Specific Conifer (1.005-1.025) Urine Protein (Negative) Urine Ketones (NEGATIVE) Urine Blood (0-5) Irineo/ul Urine Nitrite (NEGATIVE) Urine Bilirubin (NEGATIVE) Urine Urobilinogen (0-1) mg/dL Ur Leukocyte Esterase (NEGATIVE) Urine WBC (Auto) (0-5) /HPF Urine RBC (Auto) (0-2) /HPF U Hyaline Cast (Auto) (0-2) /LPF U Epithel Cells (Auto) (FEW) /HPF Urine Bacteria (Auto) (NEGATIVE) /HPF Urine Mucus (Auto) (NEGATIVE) /HPF Urine Culture Reflexed (NO) Urine Glucose (NEGATIVE) mg/dL Urine Opiates Level (NEGATIVE) Ur Methadone (NEGATIVE) Urine Barbiturates (NEGATIVE) Ur Phencyclidine (PCP) (NEGATIVE) Urine Amphetamine (NEGATIVE) U Benzodiazepine Level (NEGATIVE) Urine Cocaine (NEGATIVE) Urine Marijuana (THC) (NEGATIVE) - Progress Progress: unchanged Progress Note: 08/07/18 21:06 ct head- no acute findings. stable compared to ct head dated 02/20/18 Counseled pt/family regarding: lab results, diagnosis, need for follow-up - Departure Time of Disposition: 21:09 Departure Disposition: Home Clinical Impression: Hypokalemia, Dizziness Condition: Stable Critical Care Time: No Referrals: SHERIF ALONSO [Primary Care Provider] - Additional Instructions: drink plenty of fluids. follow up with your primary doctor tomorrow for further management
[2018-08-07 19:50] LABS: BASOPHIL % 0.2 % (0.0-0.4); Basophil (Absolute #) 0.03 (0-0.4); Eosinophil % 0.2 % (0.00-5.0); Eosinophil (Absolute #) 0.03 (0-0.5); Hematocrit 41.7 % (35-47); Hemoglobin 13.9 gm/dl (12.0-16.0); Lymphocyte (Absolute #) 3.89 (1.0-4.6); Lymphocytes % 24.6 % (24.0-44.0); Mean Cell Volume 84.1 fl (78-100); Mean Corpuscular Hgb Concent. 33.3 g/dl (32-36); Mean Platelet Volume 12.2 fl (6-9.5); Monocyte (Absolute #) 0.95 (0.0-1.3); Platelet Count 345 K/mm3 (150-450); Red Blood Count 4.96 M/mm3 (4.1-5.4); Red Cell Distribution Width 15.8 % (11.5-14.0); White Blood Count 15.8 K/mm3 (4.0-10.5)
[2018-08-07 20:10] LABS: ALBUMIN 5.4 g/dL (3.5-5.0); BILIRUBIN,TOTAL 0.7 mg/dL (0.2-1.3); Calcium 11.5 mg/dL (8.4-10.2); Creatinine 1 1.03 mg/dL (0.52-1.04); Potassium 3.2 mmol/L (3.5-5.1)
[2018-08-07 20:16] LABS: Appearance CLEAR (CLEAR); Bacteria FEW /HPF (NEGATIVE); Bilirubin NEGATIVE (NEGATIVE); Blood NEGATIVE Ery/ul (0-5); Epithelial Cells FEW /HPF (FEW); Glucose NEGATIVE (NEGATIVE); Ketones NEGATIVE (NEGATIVE); Leukocyte Esterase NEGATIVE (NEGATIVE); Mucus SLIGHT /HPF (NEGATIVE); Nitrite NEGATIVE (NEGATIVE); Protein,Urine Dip 100 (Negative); RBC 0-2 /HPF (0-2); Specific Gravity 1.015 (1.005-1.025); Urobilinogen NEGATIVE mg/dL (0-1)
[2018-08-07 21:04] LABS: Amphetamine,Urine NEGATIVE (NEGATIVE); Barbiturate,Urine NEGATIVE (NEGATIVE); Benzodiazepine,Urine NEGATIVE (NEGATIVE); Cocaine,Urine NEGATIVE (NEGATIVE); Methadone,Urine NEGATIVE (NEGATIVE); Opiate,Urine POSITIVE (NEGATIVE); PCP,Urine NEGATIVE (NEGATIVE); THC,Urine NEGATIVE (NEGATIVE)
[2018-08-07] MEDS ORDERED: Klor Con 10 MEQ PO ONE ×2 (21:17→21:20)
[2018-08-07 21:23] VITALS: BP 132/94; PULSE 92; O2SAT 94
--- NOTE | 2018-08-09 07:46 | XRAY ---
Indication: Dizziness and vision problems. Hypertension and migraine headaches. Multiple contiguous axial images obtained through the head without contrast. Comparison: February 20, 2018. Again normal appearing brain parenchyma, ventricles, and bony calvarium. Stable partial opacification of the right mastoid air cells. Remaining visualized paranasal sinuses and left mastoid air cells are clear. Impression: Again partial opacification the right mastoid air cells presumed inflammatory. Remaining CT head without contrast exam is negative. CT DI 69.79
== END 2018-08-07 21:43 | disposition home or self-care (01) ==
LOC: ED 18:47
DX: E87.6 Hypokalemia (principal); R42 Dizziness and giddiness; I10 Essential (primary) hypertension; J44.9 Chronic obstructive pulmonary disease, unspecified; G47.30 Sleep apnea, unspecified; E11.9 Type 2 diabetes mellitus without complications; Z79.4 Long term (current) use of insulin; M19.90 Unspecified osteoarthritis, unspecified site; F41.8 Other specified anxiety disorders; Z79.899 Other long term (current) drug therapy
CPT/HCPCS: 36000; 36415; 70450; 80053; 80307; 81001; 82962; 84484; 85025; 93005; 99284; A9270-GY

== ENCOUNTER 2018-11-07 12:10 | Observation (INO) | payer OTHER ==
[2018-11-07] MEDS ORDERED: Ativan 2 MG/1 ML VIAL IV PRN (14:06)
[2018-11-07] MEDS ORDERED: XANAX 1 MG PO SCH (14:30)
[2018-11-07] MEDS ORDERED: DUONEB 0.5-3 MG/3 ml Neb IH ONE (14:30)
[2018-11-07] MEDS: DUONEB 0.5-3 MG/3 ml Neb IH SCH ×2 (14:33→19:59)
[2018-11-07 14:34] LABS: Basophil (Absolute #) 0 (0-0.4); Eosinophil % 0.1 % (0.00-5.0); Eosinophil (Absolute #) 0.01 (0-0.5); Granulocyte Absolute (ANC) 9.29 (1.4-6.9); Granulocytes % 90.1 % (36.0-66.0); Hematocrit 32.8 % (35-47); Hemoglobin 10.3 gm/dl (12.0-16.0); Lymphocyte (Absolute #) 0.84 (1.0-4.6); Lymphocytes % 8.2 % (24.0-44.0); Mean Cell Volume 90.6 fl (78-100); Mean Corpuscular Hgb Concent. 31.4 g/dl (32-36); Mean Platelet Volume 11.7 fl (6-9.5); Monocyte (Absolute #) 0.16 (0.0-1.3); Monocytes % 1.6 % (0.0-12.0); Platelet Count 207 K/mm3 (150-450); Red Blood Count 3.62 M/mm3 (4.1-5.4); Red Cell Distribution Width 17.2 % (11.5-14.0); White Blood Count 10.3 K/mm3 (4.0-10.5)
[2018-11-07 14:44] LABS: Mean Corpuscular Hemoglobin 28.4 pg (26-32)
[2018-11-07 14:54] LABS: ALBUMIN 4.1 g/dL (3.5-5.0); ALKALINE PHOSPHATASE 89 U/L (38-126); ANION GAP 16.5 MEQ/L (5-15); BLOOD UREA NITROGEN 20 mg/dL (7-17); CHLORIDE 108 mmol/L (98-107); Calcium 9.4 mg/dL (8.4-10.2); Carbon Dioxide 21 mmol/L (22-30); Creatinine 1 0.74 mg/dL (0.52-1.04); Glucose 189 mg/dL (74-106); NT PRO BNP 378 pg/mL (0-900); Potassium 4.7 mmol/L (3.5-5.1); SGOT/AST 27 U/L (14-36); SGPT/ALT 45 U/L (0-35); SODIUM 141 mmol/L (137-145); Total Protein 7.2 g/dL (6.3-8.2)
[2018-11-07] MEDS ORDERED: Levofloxacin 500MG/100ML D5W 500 MG/100 ML BAG IV SCH (15:00)
[2018-11-07] MEDS ORDERED: solu-MEDROL 125 MG IV SCH (15:00)
[2018-11-07] MEDS: Sodium Chloride 0.9% 1000 ML 1,000 ML IV SCH (15:50)
--- NOTE | 2018-11-07 16:31 | XRAY ---
Indication: Short of breath and wheezing. COPD. Anxiety. Comparison: March 09, 2018. PA/lateral chest demonstrates new patchy bilateral airspace opacities without consolidation or large effusion. Remaining heart and bony thorax unremarkable.
[2018-11-07] MEDS ORDERED: PROVENTIL 2.5 MG/3 ML NEB IH PRN (17:14)
[2018-11-07] MEDS ORDERED: Ventolin Hfa MDI IH PRN (17:14)
[2018-11-07] MEDS ORDERED: NON-FORMULARY ITEM (Sumatriptan Succinate [Imitrex] 100 MG) PO PRN (17:14)
[2018-11-07] MEDS ORDERED: Norco 10/325 MG Tablet PO PRN (17:14)
[2018-11-07] MEDS ORDERED: PHENERGAN 25 MG PO PRN (17:14)
[2018-11-07] MEDS ORDERED: PROVENTIL COMMON CANISTER IH PRN (17:26)
[2018-11-07] MEDS: Glucophage 500 MG PO SCH (17:40)
[2018-11-07] MEDS ORDERED: MEDICATION INTERVENTION PO SCH ×3 (17:45)
[2018-11-07 18:28] LABS: Appearance CLEAR (CLEAR); Bilirubin NEGATIVE (NEGATIVE); Blood NEGATIVE Ery/ul (0-5); Epithelial Cells RARE /HPF (FEW); Glucose NEGATIVE (NEGATIVE); Hyaline Casts 0-2 /LPF (0-2); Ketones NEGATIVE (NEGATIVE); Leukocyte Esterase NEGATIVE (NEGATIVE); Mucus SLIGHT /HPF (NEGATIVE); Nitrite NEGATIVE (NEGATIVE); Protein,Urine Dip 30 (Negative); Specific Gravity 1.025 (1.005-1.025); Urobilinogen NEGATIVE mg/dL (0-1)
[2018-11-07] MEDS ORDERED: HYDRALAZINE HCL 100 MG PO SCH (22:00)
[2018-11-07] MEDS: solu-MEDROL 40 MG IV SCH (22:00)
[2018-11-07] MEDS ORDERED: Klor Con 10 MEQ PO SCH (22:00)
[2018-11-07] MEDS ORDERED: GABAPENTIN 900 MG PO SCH (22:00)
[2018-11-07] MEDS ORDERED: QUETIAPINE FUMARATE 150 MG PO SCH (22:00)
[2018-11-07] MEDS ORDERED: NORTRIPTYLINE HCL 25 MG PO SCH (22:00)
[2018-11-07] MEDS ORDERED: NON-FORMULARY ITEM (Trazodone Hcl [Desyrel] 100 MG) PO SCH (22:00)
[2018-11-07] MEDS ORDERED: ZOCOR 20MG PO SCH (22:00)
[2018-11-07] MEDS ORDERED: NEURONTIN 300 MG PO SCH (22:00)
[2018-11-07] MEDS ORDERED: Cyclobenzaprine 10 MG PO SCH (22:00)
[2018-11-07] MEDS ORDERED: DESYREL 50 MG PO SCH (22:00)
[2018-11-07] MEDS ORDERED: Seroquel 100 MG PO SCH (22:00)
[2018-11-07] MEDS ORDERED: NON-FORMULARY ITEM (Metformin Hcl [Glucophage] 1,000 MG) PO SCH (22:00)
[2018-11-07] MEDS ORDERED: TOPIRAMATE PO SCH (22:00)
[2018-11-07] MEDS ORDERED: Apresoline 25 MG TABLET PO SCH (22:00)
[2018-11-08] MEDS: DUONEB 0.5-3 MG/3 ml Neb IH SCH ×2 (00:53→06:42)
[2018-11-08] MEDS: solu-MEDROL 40 MG IV SCH (05:30)
[2018-11-08] MEDS: Sodium Chloride 0.9% 1000 ML 1,000 ML IV SCH (05:34)
[2018-11-08 06:50] VITALS: O2SAT 90
[2018-11-08] MEDS ORDERED: Advair Hfa 115/21 Common canister IH SCH (07:00)
--- NOTE | 2018-11-08 08:10 | PCM.SSS ---
History of Present Illness - Chief Complaint Chief Complaint: Exac Copd, Anxiety, DM, Syncope, LE Edema, Failed OP History of Present Illness: is a 58 year old female patient of Dr Crespo who was direct admitted yesterday for copd exacerbation, she was standing in her room during examination this morning. She feels her anxiety was her biggest issue yesterday , her breathing is much improved, she is off oxygen and states she feels back at her baseline and wants to discharge to home, she has steroids and antibiotics at home she had started prior to arrival. - Review of Systems Constitutional: No Fever, No Chills Respiratory: Cough, Wheezing Cardiac: No Symptoms Abdominal/Gastrointestinal: No Abdominal Pain, No Nausea, No Vomiting, No Diarrhea Genitourinary Symptoms: No Dysuria Skin: No Rash All Other Systems: Reviewed and Negative Medications & Allergies Home Medications: Home Medication List Fluticasone/Vilanterol [Breo Ellipta 100-25 Mcg INH] 1 each IH DAILY 03/09/16 [ History Confirmed 11/07/18] Fluticasone Propionate [Flonase NASAL] 1 spray NS DAILY 03/13/16 [History Confirmed 11/07/18] Gabapentin [Neurontin] 900 mg PO TID 09/29/16 [History Confirmed 11/07/18] Metformin HCl [Glucophage] 1,000 mg PO BID 09/29/16 [History Confirmed 11/07/18] Nortriptyline HCl [Pamelor] 25 mg PO HS 09/29/16 [History Confirmed 11/07/18] Quetiapine Fumarate [Seroquel] 150 mg PO HS 09/29/16 [History Confirmed 11/07/18 ] Trazodone HCl [Desyrel] 100 mg PO HS 09/29/16 [History Confirmed 11/07/18] Hydrocodone/APAP 10/325 mg [[place] 10/325 MG Tablet] 10 - 325 mg PO QID PRN 11/04/16 [History Confirmed 11/07/18] Potassium Chloride 10 Meq Tab* [Klor Con 10 MEQ] 20 meq PO BID 08/29/17 [ History Confirmed 11/07/18] Cyclobenzaprine HCl 10 mg [Cyclobenzaprine 10 MG] 5 mg PO BID 02/20/18 [ History Confirmed 11/07/18] Hydralazine HCl 100 mg PO TID 02/20/18 [History Confirmed 11/07/18] Prednisone 20 mg [Deltasone 20 mg] 10 mg PO DAILY 02/20/18 [History Confirmed 11/07/18] Fluoxetine HCl 10 mg [Prozac 10 mg] 40 mg PO DAILY 08/07/18 [History Confirmed 11/07/18] Albuterol 8 gm Mdi Hfa [Ventolin Hfa MDI] 108 mcg IH Q6HPRN PRN 11/07/18 [ History Confirmed 11/07/18] Albuterol Sulfate 2.5 mg IH TID PRN 11/07/18 [History Confirmed 11/07/18] Aspirin EC 81 mg [Ecotrin 81 mg] 81 mg PO DAILY 11/07/18 [History Confirmed 11/07/18] Atorvastatin Calcium 40 mg PO DAILY 11/07/18 [History Confirmed 11/07/18] Ergocalciferol (Vitamin D2) [Vitamin D2] 50,000 unit PO WEEKLY 11/07/18 [ History Confirmed 11/07/18] Loratadine [Allergy] 10 mg PO DAILY 11/07/18 [History Confirmed 11/07/18] Losartan Potassium 50 mg [Cozaar 50 MG] 50 mg PO DAILY 11/07/18 [History Confirmed 11/07/18] Metoprolol Succinate 50 mg [Toprol Xl 50 MG] 50 mg PO DAILY 11/07/18 [ History Confirmed 11/07/18] Naloxegol Oxalate [Movantik] 25 mg PO DAILY 11/07/18 [History Confirmed 11/07/18 ] Promethazine HCl 25 mg [Phenergan 25 mg] 25 mg PO Q12H PRN PRN 11/07/18 [ History Confirmed 11/07/18] Sumatriptan Succinate [Imitrex] 100 mg PO DAILY PRN PRN 11/07/18 [History Confirmed 11/07/18] Topiramate 25 mg [Topamax 25 MG] 50 mg PO BID 11/07/18 [History Confirmed 11/07/18] Allergies/Adverse Reactions: Allergies Allergy/AdvReac Type Severity Reaction Status Date / Time lisinopril Allergy Verified 08/07/18 19:14 - Past Medical History Past Medical History: Yes Neurological History: Migraines, TIA ENT History: No Pertinent History Cardiac History: Hypertension Respiratory History: COPD, Sleep Apnea Endocrine Medical History: Diabetes Type II Musculoskelatal History: Osteoarthritis GI Medical History: No Pertinent History History: No Pertinent History Pyscho-Social History: Anxiety, Depression Reproductive Disorders: No Pertinent History Comment: depression, anxiety - Female History Hx Last Menstrual Period: post Are you now?: No - Past Surgical History Past Surgical History: Yes Neuro Surgical History: No Pertinent History Cardiac History: No Pertinent History Respiratory Surgery: No Pertinent History GI Surgical History: Cholecystectomy Genitourinary Surgical Hx: No Pertinent History Musculskeletal Surgical Hx: No Pertinent History Female Surgical History: Section Other Surgical History: colonoscopy - Social History Smoking Status: Current every day smoker How long have you smoked: 45 years Exposure to second hand smoke: Yes Alcohol: Rarely Drug Use: none - Physical Exam Vital Signs: Vital Signs - 24 hr Temp Pulse Resp BP Pulse Ox 11/08/18 06:45 79 20 90 L 11/08/18 04:00 97.8 F 82 18 139/63 95 11/08/18 01:12 75 24 95 11/08/18 00:00 18 11/07/18 23:55 98.0 F 72 24 141/71 94 L 11/07/18 20:03 60 22 93 L 11/07/18 20:00 98.4 F 64 18 147/83 95 11/07/18 15:24 98 F 82 20 128/80 92 L 11/07/18 14:55 95 11/07/18 14:30 67 20 88 L 11/07/18 14:06 98.3 F 68 19 138/65 93 L 11/07/18 13:53 98.3 F 68 19 138/65 Oxygen-Last 24 hours O2 Percentage 2 Liters = 28% O2 Percentage 2 Liters = 28% O2 Percentage 2 Liters = 28% General Appearance: no apparent distress, alert Neurologic Exam: alert, oriented x 3 Respiratory Exam: wheezing Cardiovascular Exam: regular rate/rhythm, normal heart sounds, normal peripheral pulses Gastrointestinal/Abdomen Exam: soft, normal bowel sounds, No tenderness, No mass Extremity Exam: normal inspection, normal range of motion, pelvis stable Skin Exam: normal color, warm, dry, No rash Results - Labs Lab/Micro Results: Lab Results-Last 24 Hours 11/07/18 11/07/18 11/07/18 Range/Units 14:31 14:31 14:31 WBC 10.3 (4.0-10.5) K/mm3 RBC 3.62 L (4.1-5.4) M/mm3 Hgb 10.3 L (12.0-16.0) gm/dl Hct 32.8 L (35-47) % MCV 90.6 (78-100) fl MCH 28.4 (26-32) pg MCHC 31.4 L (32-36) g/dl RDW 17.2 H (11.5-14.0) % Plt Count 207 (150-450) K/mm3 MPV 11.7 H (6-9.5) fl Gran % 90.1 H (36.0-66.0) % Eos # (Auto) 0.01 (0-0.5) Absolute Lymphs (auto) 0.84 L (1.0-4.6) Absolute Monos (auto) 0.16 (0.0-1.3) Lymphocytes % 8.2 L (24.0-44.0) % Monocytes % 1.6 (0.0-12.0) % Eosinophils % 0.1 (0.00-5.0) % Basophils % 0.0 (0.0-0.4) % Absolute Granulocytes 9.29 H (1.4-6.9) Basophils # 0 (0-0.4) Sodium 141 (137-145) mmol/L Potassium 4.7 (3.5-5.1) mmol/L Chloride 108 H (98-107) mmol/L Carbon Dioxide 21 L (22-30) mmol/L Anion Gap 16.5 H (5-15) MEQ/L BUN 20 H (7-17) mg/dL Creatinine 0.74 (0.52-1.04) mg/dL Estimated GFR > 60.0 ML/MIN Glucose 189 H (74-106) mg/dL Hemoglobin A1c 6.04 H (4.5-6.0) % Calcium 9.4 (8.4-10.2) mg/dL Total Bilirubin 0.60 (0.2-1.3) mg/dL AST 27 (14-36) U/L ALT 45 H (0-35) U/L Alkaline Phosphatase 89 (38-126) U/L NT-Pro-B Natriuret Pep 378 (0-900) pg/mL Serum Total Protein 7.2 (6.3-8.2) g/dL Albumin 4.1 (3.5-5.0) g/dL Urine Color (YELLOW) Urine Appearance (CLEAR) Urine pH (5-6) Ur Specific [place] (1.005-1.025) Urine Protein (Negative) Urine Ketones (NEGATIVE) Urine Blood (0-5) Irineo/ul Urine Nitrite (NEGATIVE) Urine Bilirubin (NEGATIVE) Urine Urobilinogen (0-1) mg/dL Ur Leukocyte Esterase (NEGATIVE) Urine WBC (Auto) (0-5) /HPF Urine RBC (Auto) (0-2) /HPF U Hyaline Cast (Auto) (0-2) /LPF U Epithel Cells (Auto) (FEW) /HPF Urine Bacteria (Auto) (NEGATIVE) /HPF Urine Mucus (Auto) (NEGATIVE) /HPF Urine Culture Reflexed (NO) Urine Glucose (NEGATIVE) mg/dL 11/07/18 Range/Units 18:00 WBC (4.0-10.5) K/mm3 RBC (4.1-5.4) M/mm3 Hgb (12.0-16.0) gm/dl Hct (35-47) % MCV (78-100) fl MCH (26-32) pg MCHC (32-36) g/dl RDW (11.5-14.0) % Plt Count (150-450) K/mm3 MPV (6-9.5) fl Gran % (36.0-66.0) % Eos # (Auto) (0-0.5) Absolute Lymphs (auto) (1.0-4.6) Absolute Monos (auto) (0.0-1.3) Lymphocytes % (24.0-44.0) % Monocytes % (0.0-12.0) % Eosinophils % (0.00-5.0) % Basophils % (0.0-0.4) % Absolute Granulocytes (1.4-6.9) Basophils # (0-0.4) Sodium (137-145) mmol/L Potassium (3.5-5.1) mmol/L Chloride (98-107) mmol/L Carbon Dioxide (22-30) mmol/L Anion Gap (5-15) MEQ/L BUN (7-17) mg/dL Creatinine (0.52-1.04) mg/dL Estimated GFR ML/MIN Glucose (74-106) mg/dL Hemoglobin A1c (4.5-6.0) % Calcium (8.4-10.2) mg/dL Total Bilirubin (0.2-1.3) mg/dL AST (14-36) U/L ALT (0-35) U/L Alkaline Phosphatase (38-126) U/L NT-Pro-B Natriuret Pep (0-900) pg/mL Serum Total Protein (6.3-8.2) g/dL Albumin (3.5-5.0) g/dL Urine Color YELLOW (YELLOW) Urine Appearance CLEAR (CLEAR) Urine pH 5.0 (5-6) Ur Specific [place] 1.025 (1.005-1.025) Urine Protein 30 (Negative) Urine Ketones NEGATIVE (NEGATIVE) Urine Blood NEGATIVE (0-5) Irineo/ul Urine Nitrite NEGATIVE (NEGATIVE) Urine Bilirubin NEGATIVE (NEGATIVE) Urine Urobilinogen NEGATIVE (0-1) mg/dL Ur Leukocyte Esterase NEGATIVE (NEGATIVE) Urine WBC (Auto) NONE (0-5) /HPF Urine RBC (Auto) NONE (0-2) /HPF U Hyaline Cast (Auto) 0-2 (0-2) /LPF U Epithel Cells (Auto) RARE (FEW) /HPF Urine Bacteria (Auto) NONE (NEGATIVE) /HPF Urine Mucus (Auto) SLIGHT (NEGATIVE) /HPF Urine Culture Reflexed NO (NO) Urine Glucose NEGATIVE (NEGATIVE) mg/dL - Radiology Impressions Radiology Exams & Impressions: Radiology Procedures Category Date Time Status CHEST 2 VIEWS (PA AND LAT) Routine Exams 11/07/18 14:30 Completed - Other Procedures and Tests Respiratory Therapy 11/07/18 14:30 Peak Expiratory Flow Rate ONCE Respiratory Therapy Assessment DAILY 11/07/18 14:55 Oxygen Nasal Cannula 2 lpm 11/07/18 15:11 Flutter Therapy UD Assessment/Plan (1) COPD exacerbation Current Visit: No Status: Acute Code(s): J44.1 - CHRONIC OBSTRUCTIVE PULMONARY DISEASE W (ACUTE) EXACERBATION Hospital Summary - Vitals & Intake/Output Vital Signs: Vital Signs Temperature 97.8 F 11/08/18 04:00 Pulse Rate 79 11/08/18 06:45 Respiratory Rate 20 11/08/18 06:45 Blood Pressure 139/63 11/08/18 04:00 O2 Sat by Pulse Oximetry 90 L 11/08/18 06:45 Oxygen-Last Documented O2 Percentage 2 Liters = 28% Intake & Output: Intake & Output 11/05/18 11/06/18 11/07/18 11/08/18 11:59 11:59 11:59 11:59 Intake Total 2300 Balance 2300 Weight 67.4 kg - Lab Result Diagrams: 11/07/18 14:31 11/07/18 14:31 Lab Results-Last 24 Hrs: Lab Results-Last 24 Hours 11/07/18 11/07/18 11/07/18 Range/Units 14:31 14:31 14:31 WBC 10.3 (4.0-10.5) K/mm3 RBC 3.62 L (4.1-5.4) M/mm3 Hgb 10.3 L (12.0-16.0) gm/dl Hct 32.8 L (35-47) % MCV 90.6 (78-100) fl MCH 28.4 (26-32) pg MCHC 31.4 L (32-36) g/dl RDW 17.2 H (11.5-14.0) % Plt Count 207 (150-450) K/mm3 MPV 11.7 H (6-9.5) fl Gran % 90.1 H (36.0-66.0) % Eos # (Auto) 0.01 (0-0.5) Absolute Lymphs (auto) 0.84 L (1.0-4.6) Absolute Monos (auto) 0.16 (0.0-1.3) Lymphocytes % 8.2 L (24.0-44.0) % Monocytes % 1.6 (0.0-12.0) % Eosinophils % 0.1 (0.00-5.0) % Basophils % 0.0 (0.0-0.4) % Absolute Granulocytes 9.29 H (1.4-6.9) Basophils # 0 (0-0.4) Sodium 141 (137-145) mmol/L Potassium 4.7 (3.5-5.1) mmol/L Chloride 108 H (98-107) mmol/L Carbon Dioxide 21 L (22-30) mmol/L Anion Gap 16.5 H (5-15) MEQ/L BUN 20 H (7-17) mg/dL Creatinine 0.74 (0.52-1.04) mg/dL Estimated GFR > 60.0 ML/MIN Glucose 189 H (74-106) mg/dL Hemoglobin A1c 6.04 H (4.5-6.0) % Calcium 9.4 (8.4-10.2) mg/dL Total Bilirubin 0.60 (0.2-1.3) mg/dL AST 27 (14-36) U/L ALT 45 H (0-35) U/L Alkaline Phosphatase 89 (38-126) U/L NT-Pro-B Natriuret Pep 378 (0-900) pg/mL Serum Total Protein 7.2 (6.3-8.2) g/dL Albumin 4.1 (3.5-5.0) g/dL Urine Color (YELLOW) Urine Appearance (CLEAR) Urine pH (5-6) Ur Specific [place] (1.005-1.025) Urine Protein (Negative) Urine Ketones (NEGATIVE) Urine Blood (0-5) Irineo/ul Urine Nitrite (NEGATIVE) Urine Bilirubin (NEGATIVE) Urine Urobilinogen (0-1) mg/dL Ur Leukocyte Esterase (NEGATIVE) Urine WBC (Auto) (0-5) /HPF Urine RBC (Auto) (0-2) /HPF U Hyaline Cast (Auto) (0-2) /LPF U Epithel Cells (Auto) (FEW) /HPF Urine Bacteria (Auto) (NEGATIVE) /HPF Urine Mucus (Auto) (NEGATIVE) /HPF Urine Culture Reflexed (NO) Urine Glucose (NEGATIVE) mg/dL 11/07/18 Range/Units 18:00 WBC (4.0-10.5) K/mm3 RBC (4.1-5.4) M/mm3 Hgb (12.0-16.0) gm/dl Hct (35-47) % MCV (78-100) fl MCH (26-32) pg MCHC (32-36) g/dl RDW (11.5-14.0) % Plt Count (150-450) K/mm3 MPV (6-9.5) fl Gran % (36.0-66.0) % Eos # (Auto) (0-0.5) Absolute Lymphs (auto) (1.0-4.6) Absolute Monos (auto) (0.0-1.3) Lymphocytes % (24.0-44.0) % Monocytes % (0.0-12.0) % Eosinophils % (0.00-5.0) % Basophils % (0.0-0.4) % Absolute Granulocytes (1.4-6.9) Basophils # (0-0.4) Sodium (137-145) mmol/L Potassium (3.5-5.1) mmol/L Chloride (98-107) mmol/L Carbon Dioxide (22-30) mmol/L Anion Gap (5-15) MEQ/L BUN (7-17) mg/dL Creatinine (0.52-1.04) mg/dL Estimated GFR ML/MIN Glucose (74-106) mg/dL Hemoglobin A1c (4.5-6.0) % Calcium (8.4-10.2) mg/dL Total Bilirubin (0.2-1.3) mg/dL AST (14-36) U/L ALT (0-35) U/L Alkaline Phosphatase (38-126) U/L NT-Pro-B Natriuret Pep (0-900) pg/mL Serum Total Protein (6.3-8.2) g/dL Albumin (3.5-5.0) g/dL Urine Color YELLOW (YELLOW) Urine Appearance CLEAR (CLEAR) Urine pH 5.0 (5-6) Ur Specific [place] 1.025 (1.005-1.025) Urine Protein 30 (Negative) Urine Ketones NEGATIVE (NEGATIVE) Urine Blood NEGATIVE (0-5) Irineo/ul Urine Nitrite NEGATIVE (NEGATIVE) Urine Bilirubin NEGATIVE (NEGATIVE) Urine Urobilinogen NEGATIVE (0-1) mg/dL Ur Leukocyte Esterase NEGATIVE (NEGATIVE) Urine WBC (Auto) NONE (0-5) /HPF Urine RBC (Auto) NONE (0-2) /HPF U Hyaline Cast (Auto) 0-2 (0-2) /LPF U Epithel Cells (Auto) RARE (FEW) /HPF Urine Bacteria (Auto) NONE (NEGATIVE) /HPF Urine Mucus (Auto) SLIGHT (NEGATIVE) /HPF Urine Culture Reflexed NO (NO) Urine Glucose NEGATIVE (NEGATIVE) mg/dL - Radiology Exams Ordered Rad Exams-Entire Visit: Radiology Procedures Category Date Time Status CHEST 2 VIEWS (PA AND LAT) Routine Exams 11/07/18 14:30 Completed - Procedures and Test Procedures and Tests throughout Hospitalization: Therapy Orders & Screens 11/07/18 14:20 Respiratory Nebulizer Q6H Comment: chago Diagnosis: Exac Copd, Anxiety,Syncope,LE Edema 11/07/18 14:30 Peak Expiratory Flow Rate ONCE Comment: Reason For Exam: Diagnosis: Exac Copd, Anxiety,Syncope,LE Edema Respiratory Therapy Assessment DAILY Comment: Diagnosis: Exac Copd, Anxiety,Syncope,LE Edema 11/07/18 14:55 Oxygen Nasal Cannula 2 lpm Comment: Diagnosis: Exac Copd, Anxiety, DM, Syncope, LE Edema, Failed OP 11/07/18 15:06 Smoking Cessation Education ONCE Comment: Diagnosis: Exac Copd, Anxiety, DM, Syncope, LE Edema, Failed OP Smoking Status: Current every day smoker How long have you smoked: 45 years Have you smoked in the past 12 months: Yes Approximately how many cigarettes per day: 20 Do you dip or chew tobacco: No 11/07/18 15:11 Flutter Therapy UD Comment: Diagnosis: Exac Copd, Anxiety, DM, Syncope, LE Edema, Failed OP - Discharge Disposition: Home, Self-Care Condition: Good Prescriptions: Continue Fluticasone/Vilanterol [Breo Ellipta 100-25 Mcg INH] 1 each IH DAILY Fluticasone Propionate [Flonase NASAL] 1 spray NS DAILY Quetiapine Fumarate [Seroquel] 150 mg PO HS Nortriptyline HCl [Pamelor] 25 mg PO HS Metformin HCl [Glucophage] 1,000 mg PO BID Gabapentin [Neurontin] 900 mg PO TID Trazodone HCl [Desyrel] 100 mg PO HS Hydrocodone/APAP 10/325 mg [[place] 10/325 MG Tablet] 10 - 325 mg PO QID PRN PRN Reason: Pain Potassium Chloride 10 Meq Tab* [Klor Con 10 MEQ] 20 meq PO BID Cyclobenzaprine HCl 10 mg [Cyclobenzaprine 10 MG] 5 mg PO BID Prednisone 20 mg [Deltasone 20 mg] 10 mg PO DAILY Hydralazine HCl 100 mg PO TID Fluoxetine HCl 10 mg [Prozac 10 mg] 40 mg PO DAILY Sumatriptan Succinate [Imitrex] 100 mg PO DAILY PRN PRN PRN Reason: Headache Atorvastatin Calcium 40 mg PO DAILY Ergocalciferol (Vitamin D2) [Vitamin D2] 50,000 unit PO WEEKLY Loratadine [Allergy] 10 mg PO DAILY Albuterol Sulfate 2.5 mg IH TID PRN PRN Reason: Shortness Of Breath Aspirin EC 81 mg [Ecotrin 81 mg] 81 mg PO DAILY Losartan Potassium 50 mg [Cozaar 50 MG] 50 mg PO DAILY Promethazine HCl 25 mg [Phenergan 25 mg] 25 mg PO Q12H PRN PRN PRN Reason: nausea Naloxegol Oxalate [Movantik] 25 mg PO DAILY Albuterol 8 gm Mdi Hfa [Ventolin Hfa MDI] 108 mcg IH Q6HPRN PRN PRN Reason: Shortness Of Breath Metoprolol Succinate 50 mg [Toprol Xl 50 MG] 50 mg PO DAILY Topiramate 25 mg [Topamax 25 MG] 50 mg PO BID Additional Instructions: resume prednisone taper and antibiotics that you have at home, see Dr Crespo next week. Follow up with: SHERIF CRESPO [Primary Care Provider] - 1 Week
[2018-11-08 08:17] VITALS: BP 144/61; PULSE 77
[2018-11-08] MEDS: Glucophage 500 MG PO SCH (08:18)
[2018-11-08] MEDS ORDERED: Toprol Xl 50 MG PO SCH (10:00)
[2018-11-08] MEDS ORDERED: Flonase NASAL NS SCH (10:00)
[2018-11-08] MEDS ORDERED: ECOTRIN 81 MG PO SCH (10:00)
[2018-11-08] MEDS ORDERED: CLARITIN 10 MG PO SCH (10:00)
[2018-11-08] MEDS ORDERED: DELTASONE 20 MG PO SCH (10:00)
[2018-11-08] MEDS ORDERED: Cozaar 50 MG PO SCH (10:00)
[2018-11-08] MEDS ORDERED: Prozac 20 MG PO SCH (10:00)
[2018-11-08] MEDS ORDERED: NON-FORMULARY ITEM (Atorvastatin Calcium [Atorvastatin Calcium] 40 MG) PO SCH (10:00)
[2018-11-09] MEDS ORDERED: VITAMIN D2 PO SCH (10:00)
== END 2018-11-08 10:17 | disposition home or self-care (01) ==
LOC: EDSTATUS 12:22 → MED SURG 13:38 → INTOOBSV 13:38
PROVIDERS: ADMIT Family Medicine; ATTEND Family Medicine
DX: J44.1 Chronic obstructive pulmonary disease with (acute) exacerbation (principal); F41.9 Anxiety disorder, unspecified; E11.9 Type 2 diabetes mellitus without complications; R55 Syncope and collapse; R60.0 Localized edema; Z79.899 Other long term (current) drug therapy; I10 Essential (primary) hypertension; G47.30 Sleep apnea, unspecified; F17.200 Nicotine dependence, unspecified, uncomplicated
CPT/HCPCS: 36415; 71046; 80053; 81001; 82962; 83036; 83880; 85025; 93268; 94150; 94640; 94667; 94760; J1956; J2920; J2930; A9270-GY; G0378

== ENCOUNTER 2018-11-10 02:38 | Inpatient (IN) | payer OTHER ==
[2018-11-10] MEDS ORDERED: PROVENTIL 2.5 MG/3 ML NEB IH ONE ×5 (03:09→03:27)
[2018-11-10] MEDS ORDERED: ROCEPHIN 1 Gm-D5w 50 ml Bag** 1 G/50 ML IVPB IV STA (03:09)
[2018-11-10] MEDS ORDERED: Zithromax 500 MG/ 250 ML NaCl Premix 500 MG/250 ML IVPB IV STA (03:09)
--- NOTE | 2018-11-10 03:26 | ERPHSYRPT ---
- History of Present Illness Time Seen by Provider: 11/10/18 03:00 Source: patient Exam Limitations: clinical condition Patient Subjective Stated Complaint: pt states she has been short of breath tonight and has been coughing. states she has a sore throat d/t cough. Triage Nursing Assessment: pt alert and oreinted, answers questions approp. pt ambulatory with steady gait noted. pt short of breath with exertion. speaks in full sentences without difficulty. insp and exp wheezes noted throughout. skin pink warm and dry. Physician History: PATIENT WITH A HISTORY OF COPD, TYPE 2 DIABETES, HYPERTENSION, TIA AND SLEEP APNEA, RECENTLY HOSPITALIZED FOR COPD ACUTE EXACERBATION ON 11/07/2018, NOW COMPLAINS OF DIFFICULTY BREATHING, SHORTNESS OF BREATH AND A NONPRODUCTIVE COUGH. DENIES FEVER OR CHILLS. DENIES CHEST PAIN, AUDIBLE WHEEZES OR STRIDOR. Timing/Duration: yesterday Activities at Onset: none Severity of Dyspnea-Max: severe Severity of Dyspnea-Current: severe Possible Cause: occasional episodes, frequent episodes Modifying Factors: Improves With: coughing, exertion Associated Symptoms: cough, wheezing International travel in last 2 weeks: No Allergies/Adverse Reactions: lisinopril Allergy (Verified 08/07/18 19:14) Home Medications: Fluticasone/Vilanterol [Breo Ellipta 100-25 Mcg INH] 1 each IH DAILY 03/09/16 [ History] Fluticasone Propionate [Flonase NASAL] 1 spray NS DAILY 03/13/16 [History] Gabapentin [Neurontin] 900 mg PO TID 09/29/16 [History] Metformin HCl [Glucophage] 1,000 mg PO BID 09/29/16 [History] Nortriptyline HCl [Pamelor] 25 mg PO HS 09/29/16 [History] Quetiapine Fumarate [Seroquel] 150 mg PO HS 09/29/16 [History] Trazodone HCl [Desyrel] 100 mg PO HS 09/29/16 [History] Hydrocodone/APAP 10/325 mg [Red [place]et 10/325 MG Tablet] 10 - 325 mg PO QID PRN 11/04/16 [History] Potassium Chloride 10 Meq Tab* [Klor Con 10 MEQ] 20 meq PO BID 08/29/17 [ History] Cyclobenzaprine HCl 10 mg [Cyclobenzaprine 10 MG] 5 mg PO BID 02/20/18 [ History] Hydralazine HCl 100 mg PO TID 02/20/18 [History] Prednisone 20 mg [Deltasone 20 mg] 10 mg PO DAILY 02/20/18 [History] Fluoxetine HCl 10 mg [Prozac 10 mg] 40 mg PO DAILY 08/07/18 [History] Albuterol 8 gm Mdi Hfa [Ventolin Hfa MDI] 108 mcg IH Q6HPRN PRN 11/07/18 [ History] Albuterol Sulfate 2.5 mg IH TID PRN 11/07/18 [History] Aspirin EC 81 mg [Ecotrin 81 mg] 81 mg PO DAILY 11/07/18 [History] Atorvastatin Calcium 40 mg PO DAILY 11/07/18 [History] Ergocalciferol (Vitamin D2) [Vitamin D2] 50,000 unit PO WEEKLY 11/07/18 [History ] Loratadine [Allergy] 10 mg PO DAILY 11/07/18 [History] Losartan Potassium 50 mg [Cozaar 50 MG] 50 mg PO DAILY 11/07/18 [History] Metoprolol Succinate 50 mg [Toprol Xl 50 MG] 50 mg PO DAILY 11/07/18 [ History] Naloxegol Oxalate [Movantik] 25 mg PO DAILY 11/07/18 [History] Promethazine HCl 25 mg [Phenergan 25 mg] 25 mg PO Q12H PRN PRN 11/07/18 [ History] Sumatriptan Succinate [Imitrex] 100 mg PO DAILY PRN PRN 11/07/18 [History] Topiramate 25 mg [Topamax 25 MG] 50 mg PO BID 11/07/18 [History] Hx Tetanus, Diphtheria Vaccination/Date Given: Yes Hx Influenza Vaccination/Date Given: Yes Hx Pneumococcal Vaccination/Date Given: Yes Immunizations Up to Date: Yes - Review of Systems Constitutional: No Symptoms, No Fever, No Chills Eyes: No Symptoms Ears, Nose, & Throat: No Symptoms Respiratory: Cough, Dyspnea, Dyspnea on Exertion (POSADAS) Cardiac: No Symptoms, No Chest Pain, No Edema, No Syncope Abdominal/Gastrointestinal: No Symptoms, No Abdominal Pain, No Nausea, No Vomiting, No Diarrhea Genitourinary Symptoms: No Symptoms, No Dysuria Musculoskeletal: No Symptoms, No Back Pain, No Neck Pain Skin: No Rash Neurological: No Dizziness, No Focal Weakness, No Sensory Changes Psychological: No Symptoms Endocrine: No Symptoms All Other Systems: Reviewed and Negative - Past Medical History Pertinent Past Medical History: Yes Neurological History: Migraines, TIA ENT History: No Pertinent History Cardiac History: Hypertension Respiratory History: COPD, Sleep Apnea Endocrine Medical History: Diabetes Type II Musculoskeletal History: Osteoarthritis GI Medical History: No Pertinent History History: No Pertinent History Psycho-Social History: Anxiety, Depression Female Reproductive Disorders: No Pertinent History Other Medical History: depression, anxiety - Past Surgical History Past Surgical History: Yes Neuro Surgical History: No Pertinent History Cardiac: No Pertinent History Respiratory: No Pertinent History Gastrointestinal: Cholecystectomy Genitourinary: No Pertinent History Musculoskeletal: No Pertinent History Female Surgical History: Section Other Surgical History: colonoscopy - Social History Smoking Status: Current every day smoker How long have you smoked: 45 years Exposure to second hand smoke: Yes Drug Use: none Patient Lives Alone: No - Nursing Vital Signs Nursing Vital Signs: Initial Vital Signs Pulse Rate 73 11/10/18 02:42 Respiratory Rate 24 11/10/18 02:42 Blood Pressure 185/83 11/10/18 02:42 O2 Sat by Pulse Oximetry 95 11/10/18 02:42 Pain Scale Pain Intensity 4 - Physical Exam General Appearance: mild distress Eye Exam: PERRL/EOMI Ears, Nose, Throat Exam: hearing grossly normal Neck Exam: normal inspection Respiratory Exam: diminished breath sounds, wheezing (DIFFUSE WHEEZES, NO RHONCHI) Cardiovascular/Chest Exam: normal heart sounds Abdominal/Gastrointestinal Exam: soft, normal bowel sounds Rectal Exam: black stool Extremity Exam: normal capillary refill Peripheral Pulses Exam: carotid (R): 2+, carotid (L): 2+, femoral (R): 2+, femoral (L): 2+, dorsalis-pedis (R): 2+, dorsalis-pedis (L): 0, 2+, 3+ Neurologic Exam: alert, oriented x 3, EOM palsy SpO2 Interpretation: hypoxic SpO2: 89 - Course EKG Interpreted by Me: RATE, Sinus Rhythm, NORMAL AXIS - Radiology Exams Chest X-ray Interpretation: Interpreted by me (RIGHT MIDDLE/LOWER LOBE INFILTRATES. LEFT LINGULA INFILTRATES) Ordered Tests: Active Orders 24 hr Category Date Time Status EKG-ER Only STAT Care 11/10/18 03:09 Active Oxygen-ED Only Nasal Cannula 2 lpm Care 11/10/18 03:09 Active CHEST 1 VIEW (PORTABLE) Stat Exams 11/10/18 03:11 Taken CBC W DIFF Stat Lab 11/10/18 03:53 Completed CMP Stat Lab 11/10/18 03:53 Completed MAGNESIUM Stat Lab 11/10/18 03:53 Completed PROTIME WITH INR Stat Lab 11/10/18 03:53 Completed TROPONIN Q3H Lab 11/10/18 03:53 Completed TROPONIN Q3H Lab 11/10/18 06:30 Ordered TROPONIN Q3H Lab 11/10/18 09:30 Ordered TROPONIN Q3H Lab 11/10/18 12:30 Ordered TROPONIN Q3H Lab 11/10/18 15:30 Ordered VENOUS BLOOD GAS Stat Lab 11/10/18 03:50 Completed Peak Expiratory Flow Rate ONCE RT 11/10/18 03:09 Active Respiratory Therapy Assessment DAILY RT 11/10/18 03:31 Completed Medication Summary Discontinued Medications Generic Name Dose Route Start Last Admin Trade Name Freq PRN Reason Stop Dose Admin Albuterol Sulfate 10 mg 11/10/18 03:09 11/10/18 03:23 Proventil 2.5 Mg/3 Ml Neb IH 11/10/18 03:10 10 mg STAT ONE Administration Albuterol Sulfate Confirm 11/10/18 03:22 Proventil 2.5 Mg/3 Ml Neb Administered 11/10/18 03:23 Dose 2.5 mg IH .STK-MED ONE Albuterol Sulfate Confirm 11/10/18 03:27 Proventil 2.5 Mg/3 Ml Neb Administered 11/10/18 03:28 Dose 2.5 mg IH .STK-MED ONE Albuterol Sulfate Confirm 11/10/18 03:27 Proventil 2.5 Mg/3 Ml Neb Administered 11/10/18 03:28 Dose 2.5 mg IH .STK-MED ONE Albuterol Sulfate Confirm 11/10/18 03:27 Proventil 2.5 Mg/3 Ml Neb Administered 11/10/18 03:28 Dose 2.5 mg IH .STK-MED ONE Ceftriaxone Sodium/Dextrose 1 g in 50 mls @ 100 mls/hr 11/10/18 03:09 03:36 Rocephin 1 Gm-D5w 50 Ml Bag IV 11/10/18 03:38 100 mls/hr STAT STA 100 mls/hr Administration Azithromycin 500 mg in 250 mls @ 250 mls/hr 11/10/18 03:09 Zithromax 500 Mg/ 250 Ml Nacl Premix IV 11/10/18 04:08 STAT STA Ceftriaxone Sodium/Dextrose Confirm 11/10/18 03:34 Rocephin 1 Gm-D5w 50 Ml Bag Administered 11/10/18 03:35 Dose 1 g in 50 mls @ ud IV .STK-MED ONE Lab/Rad Data: Laboratory Result Diagrams 11/10/18 03:53 11/10/18 03:53 Laboratory Results 11/10/18 11/10/18 11/10/18 Range/Units 03:53 03:53 03:53 WBC (4.0-10.5) K/mm3 RBC (4.1-5.4) M/mm3 Hgb (12.0-16.0) gm/dl Hct (35-47) % MCV (78-100) fl MCH (26-32) pg MCHC (32-36) g/dl RDW (11.5-14.0) % Plt Count (150-450) K/mm3 MPV (6-9.5) fl Gran % (36.0-66.0) % Eos # (Auto) (0-0.5) Absolute Lymphs (auto) (1.0-4.6) Absolute Monos (auto) (0.0-1.3) Lymphocytes % (24.0-44.0) % Monocytes % (0.0-12.0) % Eosinophils % (0.00-5.0) % Basophils % (0.0-0.4) % Absolute Granulocytes (1.4-6.9) Basophils # (0-0.4) PT (9.95-12.35) SECONDS INR (0.8-3.0) pO2/FiO2 Ratio % VBG pH (7.32-7.42) VBG pCO2 at Pat Temp (42-55) mm/Hg VBG pO2 at Pat Temp (25-40) mm/Hg VBG HCO3 (22-28) meq/L VBG O2 Sat (Kiran) (95-100) VBG Base Excess (-2.0-2.0) VBG Hemoglobin VBG Carboxyhemoglobin (0.0-6.9) % T HGB POC Potassium (3.5-5.1) Sodium (137-145) mmol/L Potassium (3.5-5.1) mmol/L Chloride (98-107) mmol/L Carbon Dioxide (22-30) mmol/L Anion Gap (5-15) MEQ/L BUN (7-17) mg/dL Creatinine (0.52-1.04) mg/dL Estimated GFR ML/MIN Glucose (74-106) mg/dL Calcium (8.4-10.2) mg/dL Magnesium (1.6-2.3) mg/dL Total Bilirubin (0.2-1.3) mg/dL AST (14-36) U/L ALT (0-35) U/L Alkaline Phosphatase (38-126) U/L Troponin I < 0.012 (0.000-0.034) ng/mL Serum Total Protein (6.3-8.2) g/dL Albumin (3.5-5.0) g/dL Influenza Type A Ag NEGATIVE (NEGATIVE) Influenza Type B Ag NEGATIVE (NEGATIVE) RSV (PCR) NEGATIVE (Negative) Group A Strep Antibody NEGATIVE (NEGATIVE) 11/10/18 11/10/18 11/10/18 Range/Units 03:53 03:53 03:53 WBC 11.9 H (4.0-10.5) K/mm3 RBC 3.52 L (4.1-5.4) M/mm3 Hgb 10.0 L (12.0-16.0) gm/dl Hct 30.9 L (35-47) % MCV 87.8 (78-100) fl MCH 28.4 (26-32) pg MCHC 32.4 (32-36) g/dl RDW 16.3 H (11.5-14.0) % Plt Count 192 (150-450) K/mm3 MPV 10.5 H (6-9.5) fl Gran % 80.9 H (36.0-66.0) % Eos # (Auto) 0 (0-0.5) Absolute Lymphs (auto) 1.70 (1.0-4.6) Absolute Monos (auto) 0.57 (0.0-1.3) Lymphocytes % 14.3 L (24.0-44.0) % Monocytes % 4.8 (0.0-12.0) % Eosinophils % 0.0 (0.00-5.0) % Basophils % 0.0 (0.0-0.4) % Absolute Granulocytes 9.58 H (1.4-6.9) Basophils # 0 (0-0.4) PT 14.4 H (9.95-12.35) SECONDS INR 1.24 (0.8-3.0) pO2/FiO2 Ratio % VBG pH (7.32-7.42) VBG pCO2 at Pat Temp (42-55) mm/Hg VBG pO2 at Pat Temp (25-40) mm/Hg VBG HCO3 (22-28) meq/L VBG O2 Sat (Kiran) (95-100) VBG Base Excess (-2.0-2.0) VBG Hemoglobin VBG Carboxyhemoglobin (0.0-6.9) % T HGB POC Potassium (3.5-5.1) Sodium 138 (137-145) mmol/L Potassium 3.6 (3.5-5.1) mmol/L Chloride 103 (98-107) mmol/L Carbon Dioxide 23 (22-30) mmol/L Anion Gap 15.3 H (5-15) MEQ/L BUN 22 H (7-17) mg/dL Creatinine 0.76 (0.52-1.04) mg/dL Estimated GFR > 60.0 ML/MIN Glucose 137 H (74-106) mg/dL Calcium 9.7 (8.4-10.2) mg/dL Magnesium 1.7 (1.6-2.3) mg/dL Total Bilirubin 0.80 (0.2-1.3) mg/dL AST 27 (14-36) U/L ALT 36 H (0-35) U/L Alkaline Phosphatase 95 (38-126) U/L Troponin I (0.000-0.034) ng/mL Serum Total Protein 7.0 (6.3-8.2) g/dL Albumin 3.7 (3.5-5.0) g/dL Influenza Type A Ag (NEGATIVE) Influenza Type B Ag (NEGATIVE) RSV (PCR) (Negative) Group A Strep Antibody (NEGATIVE) 11/10/18 Range/Units 03:50 WBC (4.0-10.5) K/mm3 RBC (4.1-5.4) M/mm3 Hgb (12.0-16.0) gm/dl Hct (35-47) % MCV (78-100) fl MCH (26-32) pg MCHC (32-36) g/dl RDW (11.5-14.0) % Plt Count (150-450) K/mm3 MPV (6-9.5) fl Gran % (36.0-66.0) % Eos # (Auto) (0-0.5) Absolute Lymphs (auto) (1.0-4.6) Absolute Monos (auto) (0.0-1.3) Lymphocytes % (24.0-44.0) % Monocytes % (0.0-12.0) % Eosinophils % (0.00-5.0) % Basophils % (0.0-0.4) % Absolute Granulocytes (1.4-6.9) Basophils # (0-0.4) PT (9.95-12.35) SECONDS INR (0.8-3.0) pO2/FiO2 Ratio 28.0 % VBG pH 7.43 H (7.32-7.42) VBG pCO2 at Pat Temp 35 L (42-55) mm/Hg VBG pO2 at Pat Temp 40 (25-40) mm/Hg VBG HCO3 23.2 (22-28) meq/L VBG O2 Sat (Kiran) 77.6 L (95-100) VBG Base Excess -0.8 (-2.0-2.0) VBG Hemoglobin 10.5 VBG Carboxyhemoglobin 3.2 (0.0-6.9) % T HGB POC Potassium 3.5 (3.5-5.1) Sodium (137-145) mmol/L Potassium (3.5-5.1) mmol/L Chloride (98-107) mmol/L Carbon Dioxide (22-30) mmol/L Anion Gap (5-15) MEQ/L BUN (7-17) mg/dL Creatinine (0.52-1.04) mg/dL Estimated GFR ML/MIN Glucose (74-106) mg/dL Calcium (8.4-10.2) mg/dL Magnesium (1.6-2.3) mg/dL Total Bilirubin (0.2-1.3) mg/dL AST (14-36) U/L ALT (0-35) U/L Alkaline Phosphatase (38-126) U/L Troponin I (0.000-0.034) ng/mL Serum Total Protein (6.3-8.2) g/dL Albumin (3.5-5.0) g/dL Influenza Type A Ag (NEGATIVE) Influenza Type B Ag (NEGATIVE) RSV (PCR) (Negative) Group A Strep Antibody (NEGATIVE) - Progress Progress: improved Progress Note: 11/10/18 04:45 ADMINISTERED CONTINUOUS ALBUTEROL 10MG AEROSOL TX OVER 1 HOUR, SOLUMEDROL 125MG , ROCEPHIN 1GM, ZITHROMAX 500MG IVPB Discussed with : Dharmesh (DISCUSSED WITH DR CABRERA AT 0415 FOR OBSERVATION ) - Departure Departure Disposition: Observation Clinical Impression: PNEUMONIA, ACUTE EXACERBATION COPD Condition: Stable Critical Care Time: No Referrals: SHERIF JACKSON [Primary Care Provider] -
[2018-11-10] MEDS ORDERED: ROCEPHIN 1 Gm-D5w 50 ml Bag** 1 G/50 ML IVPB IV ONE (03:34)
[2018-11-10 03:55] LABS: Basophil (Absolute #) 0 (0-0.4); Eosinophil (Absolute #) 0 (0-0.5); Granulocyte Absolute (ANC) 9.58 (1.4-6.9); Granulocytes % 80.9 % (36.0-66.0); Hematocrit 30.9 % (35-47); Lymphocytes % 14.3 % (24.0-44.0); Mean Cell Volume 87.8 fl (78-100); Mean Corpuscular Hemoglobin 28.4 pg (26-32); Mean Corpuscular Hgb Concent. 32.4 g/dl (32-36); Mean Platelet Volume 10.5 fl (6-9.5); Monocyte (Absolute #) 0.57 (0.0-1.3); Monocytes % 4.8 % (0.0-12.0); Platelet Count 192 K/mm3 (150-450); Red Blood Count 3.52 M/mm3 (4.1-5.4); Red Cell Distribution Width 16.3 % (11.5-14.0); White Blood Count 11.9 K/mm3 (4.0-10.5)
[2018-11-10 03:57] LABS: VBG BASE EXCESS -0.8 (-2.0-2.0); VBG CARBOXYHEMOGLOBIN 3.2 % T HGB (0.0-6.9); VBG HCO3- 23.2 meq/L (22-28); VBG HEMOGLOBIN 10.5; VBG O2 SATURATION 77.6 (95-100); VBG POTASSIUM 3.5 (3.5-5.1); VBG pH 7.43 (7.32-7.42)
[2018-11-10 04:08] LABS: ALBUMIN 3.7 g/dL (3.5-5.0); ALKALINE PHOSPHATASE 95 U/L (38-126); ANION GAP 15.3 MEQ/L (5-15); BLOOD UREA NITROGEN 22 mg/dL (7-17); CHLORIDE 103 mmol/L (98-107); Calcium 9.7 mg/dL (8.4-10.2); Carbon Dioxide 23 mmol/L (22-30); Creatinine 1 0.76 mg/dL (0.52-1.04); Glucose 137 mg/dL (74-106); MAGNESIUM 1.7 mg/dL (1.6-2.3); Potassium 3.6 mmol/L (3.5-5.1); SGOT/AST 27 U/L (14-36); SGPT/ALT 36 U/L (0-35); SODIUM 138 mmol/L (137-145)
[2018-11-10 04:17] LABS: INR 1.24 (0.8-3.0); PROTIME 14.4 SECONDS (9.95-12.35)
[2018-11-10 04:34] LABS: INFLUENZA A NEGATIVE (NEGATIVE); INFLUENZA B NEGATIVE (NEGATIVE); RESPIRATORY SYNCTIAL VIRUS NEGATIVE (Negative)
[2018-11-10] MEDS ORDERED: Xopenex 1.25 MG/0.5 ML UD NEBULE IH PRN (04:58)
[2018-11-10] MEDS ORDERED: DUONEB 0.5-3 MG/3 ml Neb IH ONE (05:23)
[2018-11-10] MEDS ORDERED: solu-MEDROL 125 MG IV ONE (05:39)
[2018-11-10] MEDS: Sodium Chloride 0.9% 1000 ML 1,000 ML IV SCH ×2 (05:41→17:19)
--- NOTE | 2018-11-10 08:27 | XRAY ---
Indication: Cough. Difficulty breathing. Comparison: November 07, 2018. Portable apical lordotic chest demonstrates worsening bilateral patchy airspace disease again without consolidation/large effusion. Heart is not enlarged.
[2018-11-10] MEDS: Advair Hfa 115/21 Common canister IH SCH ×2 (09:22→19:47)
[2018-11-10] MEDS: DUONEB 0.5-3 MG/3 ml Neb IH SCH ×5 (09:22→23:54)
[2018-11-10] MEDS: solu-MEDROL 125 MG IV SCH ×4 (09:39→23:49)
[2018-11-10] MEDS: Norco 10/325 MG Tablet PO PRN ×2 (09:46→17:11)
[2018-11-10] MEDS ORDERED: Toprol Xl 50 MG PO SCH (10:00)
[2018-11-10] MEDS ORDERED: Klor Con 10 MEQ PO SCH (10:00)
--- NOTE | 2018-11-10 11:02 | PCM.HP ---
History of Present Illness - Chief Complaint Chief Complaint: pneumonia History of Present Illness: is a 58 year old female patient of Dr Crespo who was admitted overnight for copd exacerbation, she had improved and was back to her baseline then returned last night. most of her history revolves around complaining about blood draws and IV sites and how Dr Crespo promised her she would try to avoid them if she came to the hospital etc. She apparently experienced worsening cough and shortness of breath after returning home, she was on po doxycycline and prednisone taper at time of recent discharge. She is extremely anxious, fixated on getting her home meds, a nicotine patch and something ordered for her anxiety. - Review of Systems Constitutional: No Fever, No Chills Respiratory: Cough, Short Of Breath, Wheezing Cardiac: No Chest Pain, No Edema, No Syncope Abdominal/Gastrointestinal: No Abdominal Pain, No Nausea, No Vomiting, No Diarrhea Genitourinary Symptoms: No Dysuria Skin: No Rash All Other Systems: Reviewed and Negative Medications & Allergies Home Medications: Home Medication List Fluticasone/Vilanterol [Breo Ellipta 100-25 Mcg INH] 1 each IH DAILY 03/09/16 [ History Confirmed 11/10/18] Fluticasone Propionate [Flonase NASAL] 1 spray NS DAILY 03/13/16 [History Confirmed 11/10/18] Gabapentin [Neurontin] 900 mg PO TID 09/29/16 [History Confirmed 11/10/18] Metformin HCl [Glucophage] 1,000 mg PO BID 09/29/16 [History Confirmed 11/10/18] Nortriptyline HCl [Pamelor] 25 mg PO HS 09/29/16 [History Confirmed 11/10/18] Quetiapine Fumarate [Seroquel] 150 mg PO HS 09/29/16 [History Confirmed 11/10/18 ] Trazodone HCl [Desyrel] 100 mg PO HS 09/29/16 [History Confirmed 11/10/18] Hydrocodone/APAP 10/325 mg [Napoleon 10/325 MG Tablet] 10 - 325 mg PO QID PRN 11/04/16 [History Confirmed 11/10/18] Potassium Chloride 10 Meq Tab* [Klor Con 10 MEQ] 20 meq PO BID 08/29/17 [ History Confirmed 11/10/18] Cyclobenzaprine HCl 10 mg [Cyclobenzaprine 10 MG] 5 mg PO BID 02/20/18 [ History Confirmed 11/10/18] Hydralazine HCl 100 mg PO TID 02/20/18 [History Confirmed 11/10/18] Prednisone 20 mg [Deltasone 20 mg] 10 mg PO DAILY 02/20/18 [History Confirmed 11/10/18] Fluoxetine HCl 10 mg [Prozac 10 mg] 40 mg PO DAILY 08/07/18 [History Confirmed 11/10/18] Albuterol 8 gm Mdi Hfa [Ventolin Hfa MDI] 108 mcg IH Q6HPRN PRN 11/07/18 [ History Confirmed 11/10/18] Albuterol Sulfate 2.5 mg IH TID PRN 11/07/18 [History Confirmed 11/10/18] Aspirin EC 81 mg [Ecotrin 81 mg] 81 mg PO DAILY 11/07/18 [History Confirmed 11/10/18] Atorvastatin Calcium 40 mg PO DAILY 11/07/18 [History Confirmed 11/10/18] Ergocalciferol (Vitamin D2) [Vitamin D2] 50,000 unit PO WEEKLY 11/07/18 [ History Confirmed 11/10/18] Loratadine [Allergy] 10 mg PO DAILY 11/07/18 [History Confirmed 11/10/18] Losartan Potassium 50 mg [Cozaar 50 MG] 50 mg PO DAILY 11/07/18 [History Confirmed 11/10/18] Metoprolol Succinate 50 mg [Toprol Xl 50 MG] 50 mg PO DAILY 11/07/18 [ History Confirmed 11/10/18] Naloxegol Oxalate [Movantik] 25 mg PO DAILY 11/07/18 [History Confirmed 11/10/18 ] Promethazine HCl 25 mg [Phenergan 25 mg] 25 mg PO Q12H PRN PRN 11/07/18 [ History Confirmed 11/10/18] Sumatriptan Succinate [Imitrex] 100 mg PO DAILY PRN PRN 11/07/18 [History Confirmed 11/10/18] Topiramate 25 mg [Topamax 25 MG] 50 mg PO BID 11/07/18 [History Confirmed 11/10/18] Allergies/Adverse Reactions: Allergies Allergy/AdvReac Type Severity Reaction Status Date / Time lisinopril Allergy Verified 08/07/18 19:14 - Past Medical History Past Medical History: Yes Neurological History: Migraines, TIA ENT History: No Pertinent History Cardiac History: Hypertension Respiratory History: COPD, Sleep Apnea Endocrine Medical History: Diabetes Type II Musculoskelatal History: Osteoarthritis GI Medical History: No Pertinent History History: No Pertinent History Pyscho-Social History: Anxiety, Depression Reproductive Disorders: No Pertinent History Comment: depression, anxiety - Female History Are you now?: No - Past Surgical History Past Surgical History: Yes Neuro Surgical History: No Pertinent History Cardiac History: No Pertinent History Respiratory Surgery: No Pertinent History GI Surgical History: Cholecystectomy Genitourinary Surgical Hx: No Pertinent History Musculskeletal Surgical Hx: No Pertinent History Female Surgical History: Section Other Surgical History: colonoscopy - Social History Smoking Status: Current every day smoker How long have you smoked: 45 years Exposure to second hand smoke: Yes Alcohol: Rarely Drug Use: none - Physical Exam Vital Signs: Vital Signs - 24 hr Temp Pulse Resp BP Pulse Ox 11/10/18 09:24 91 H 20 90 L 11/10/18 08:39 97.7 F 89 20 136/65 92 L 11/10/18 06:47 97.7 F 89 20 136/65 92 L 11/10/18 06:09 92 H 18 149/67 93 L 11/10/18 05:38 87 18 91 L 11/10/18 04:56 92 H 18 155/71 90 L 11/10/18 04:49 89 L 11/10/18 04:10 95 H 20 155/71 96 11/10/18 03:32 72 22 92 L 11/10/18 02:42 73 24 185/83 95 Oxygen-Last 24 hours O2 Percentage 2 Liters = 28% O2 Percentage 2 Liters = 28% O2 Percentage 2 Liters = 28% O2 Percentage 2 Liters = 28% O2 Percentage 2 Liters = 28% O2 Percentage 2 Liters = 28% O2 Percentage 2 Liters = 28% O2 Percentage 2 Liters = 28% General Appearance: no apparent distress, alert, anxiety, obese Neurologic Exam: alert, oriented x 3 Eye Exam: PERRL/EOMI, eyes nml inspection Respiratory Exam: rhonchi, wheezing Cardiovascular Exam: regular rate/rhythm, normal heart sounds, normal peripheral pulses Gastrointestinal/Abdomen Exam: soft, normal bowel sounds, No tenderness, No mass Extremity Exam: normal inspection, normal range of motion, pelvis stable Skin Exam: normal color, warm, dry, No rash Results - Labs Lab/Micro Results: Lab Results-Last 24 Hours 11/10/18 11/10/18 11/10/18 Range/Units 03:50 03:53 03:53 WBC 11.9 H (4.0-10.5) K/mm3 RBC 3.52 L (4.1-5.4) M/mm3 Hgb 10.0 L (12.0-16.0) gm/dl Hct 30.9 L (35-47) % MCV 87.8 (78-100) fl MCH 28.4 (26-32) pg MCHC 32.4 (32-36) g/dl RDW 16.3 H (11.5-14.0) % Plt Count 192 (150-450) K/mm3 MPV 10.5 H (6-9.5) fl Gran % 80.9 H (36.0-66.0) % Eos # (Auto) 0 (0-0.5) Absolute Lymphs (auto) 1.70 (1.0-4.6) Absolute Monos (auto) 0.57 (0.0-1.3) Lymphocytes % 14.3 L (24.0-44.0) % Monocytes % 4.8 (0.0-12.0) % Eosinophils % 0.0 (0.00-5.0) % Basophils % 0.0 (0.0-0.4) % Absolute Granulocytes 9.58 H (1.4-6.9) Basophils # 0 (0-0.4) PT (9.95-12.35) SECONDS INR (0.8-3.0) pO2/FiO2 Ratio 28.0 % VBG pH 7.43 H (7.32-7.42) VBG pCO2 at Pat Temp 35 L (42-55) mm/Hg VBG pO2 at Pat Temp 40 (25-40) mm/Hg VBG HCO3 23.2 (22-28) meq/L VBG O2 Sat (Kiran) 77.6 L (95-100) VBG Base Excess -0.8 (-2.0-2.0) VBG Hemoglobin 10.5 VBG Carboxyhemoglobin 3.2 (0.0-6.9) % T HGB POC Potassium 3.5 (3.5-5.1) Sodium 138 (137-145) mmol/L Potassium 3.6 (3.5-5.1) mmol/L Chloride 103 (98-107) mmol/L Carbon Dioxide 23 (22-30) mmol/L Anion Gap 15.3 H (5-15) MEQ/L BUN 22 H (7-17) mg/dL Creatinine 0.76 (0.52-1.04) mg/dL Estimated GFR > 60.0 ML/MIN Glucose 137 H (74-106) mg/dL Calcium 9.7 (8.4-10.2) mg/dL Magnesium 1.7 (1.6-2.3) mg/dL Total Bilirubin 0.80 (0.2-1.3) mg/dL AST 27 (14-36) U/L ALT 36 H (0-35) U/L Alkaline Phosphatase 95 (38-126) U/L Troponin I (0.000-0.034) ng/mL Serum Total Protein 7.0 (6.3-8.2) g/dL Albumin 3.7 (3.5-5.0) g/dL Influenza Type A Ag (NEGATIVE) Influenza Type B Ag (NEGATIVE) RSV (PCR) (Negative) Group A Strep Antibody (NEGATIVE) 11/10/18 11/10/18 11/10/18 Range/Units 03:53 03:53 03:53 WBC (4.0-10.5) K/mm3 RBC (4.1-5.4) M/mm3 Hgb (12.0-16.0) gm/dl Hct (35-47) % MCV (78-100) fl MCH (26-32) pg MCHC (32-36) g/dl RDW (11.5-14.0) % Plt Count (150-450) K/mm3 MPV (6-9.5) fl Gran % (36.0-66.0) % Eos # (Auto) (0-0.5) Absolute Lymphs (auto) (1.0-4.6) Absolute Monos (auto) (0.0-1.3) Lymphocytes % (24.0-44.0) % Monocytes % (0.0-12.0) % Eosinophils % (0.00-5.0) % Basophils % (0.0-0.4) % Absolute Granulocytes (1.4-6.9) Basophils # (0-0.4) PT 14.4 H (9.95-12.35) SECONDS INR 1.24 (0.8-3.0) pO2/FiO2 Ratio % VBG pH (7.32-7.42) VBG pCO2 at Pat Temp (42-55) mm/Hg VBG pO2 at Pat Temp (25-40) mm/Hg VBG HCO3 (22-28) meq/L VBG O2 Sat (Kiran) (95-100) VBG Base Excess (-2.0-2.0) VBG Hemoglobin VBG Carboxyhemoglobin (0.0-6.9) % T HGB POC Potassium (3.5-5.1) Sodium (137-145) mmol/L Potassium (3.5-5.1) mmol/L Chloride (98-107) mmol/L Carbon Dioxide (22-30) mmol/L Anion Gap (5-15) MEQ/L BUN (7-17) mg/dL Creatinine (0.52-1.04) mg/dL Estimated GFR ML/MIN Glucose (74-106) mg/dL Calcium (8.4-10.2) mg/dL Magnesium (1.6-2.3) mg/dL Total Bilirubin (0.2-1.3) mg/dL AST (14-36) U/L ALT (0-35) U/L Alkaline Phosphatase (38-126) U/L Troponin I < 0.012 (0.000-0.034) ng/mL Serum Total Protein (6.3-8.2) g/dL Albumin (3.5-5.0) g/dL Influenza Type A Ag NEGATIVE (NEGATIVE) Influenza Type B Ag NEGATIVE (NEGATIVE) RSV (PCR) NEGATIVE (Negative) Group A Strep Antibody (NEGATIVE) 11/10/18 11/10/18 Range/Units 03:53 06:25 WBC (4.0-10.5) K/mm3 RBC (4.1-5.4) M/mm3 Hgb (12.0-16.0) gm/dl Hct (35-47) % MCV (78-100) fl MCH (26-32) pg MCHC (32-36) g/dl RDW (11.5-14.0) % Plt Count (150-450) K/mm3 MPV (6-9.5) fl Gran % (36.0-66.0) % Eos # (Auto) (0-0.5) Absolute Lymphs (auto) (1.0-4.6) Absolute Monos (auto) (0.0-1.3) Lymphocytes % (24.0-44.0) % Monocytes % (0.0-12.0) % Eosinophils % (0.00-5.0) % Basophils % (0.0-0.4) % Absolute Granulocytes (1.4-6.9) Basophils # (0-0.4) PT (9.95-12.35) SECONDS INR (0.8-3.0) pO2/FiO2 Ratio % VBG pH (7.32-7.42) VBG pCO2 at Pat Temp (42-55) mm/Hg VBG pO2 at Pat Temp (25-40) mm/Hg VBG HCO3 (22-28) meq/L VBG O2 Sat (Kiran) (95-100) VBG Base Excess (-2.0-2.0) VBG Hemoglobin VBG Carboxyhemoglobin (0.0-6.9) % T HGB POC Potassium (3.5-5.1) Sodium (137-145) mmol/L Potassium (3.5-5.1) mmol/L Chloride (98-107) mmol/L Carbon Dioxide (22-30) mmol/L Anion Gap (5-15) MEQ/L BUN (7-17) mg/dL Creatinine (0.52-1.04) mg/dL Estimated GFR ML/MIN Glucose (74-106) mg/dL Calcium (8.4-10.2) mg/dL Magnesium (1.6-2.3) mg/dL Total Bilirubin (0.2-1.3) mg/dL AST (14-36) U/L ALT (0-35) U/L Alkaline Phosphatase (38-126) U/L Troponin I < 0.012 (0.000-0.034) ng/mL Serum Total Protein (6.3-8.2) g/dL Albumin (3.5-5.0) g/dL Influenza Type A Ag (NEGATIVE) Influenza Type B Ag (NEGATIVE) RSV (PCR) (Negative) Group A Strep Antibody NEGATIVE (NEGATIVE) - Radiology Impressions Radiology Exams & Impressions: Radiology Procedures Category Date Time Status CHEST 1 VIEW (PORTABLE) Stat Exams 11/10/18 03:11 Completed - Other Procedures and Tests Respiratory Therapy 11/10/18 09:23 Oxygen Nasal Cannula 2 lpm 11/10/18 09:24 Respiratory Therapy Assessment DAILY Assessment/Plan (1) Pneumonia Current Visit: Yes Status: Acute Assessment & Plan: on rocephin and zithromax Code(s): J18.9 - PNEUMONIA, UNSPECIFIED ORGANISM (2) COPD with exacerbation Current Visit: No Status: Acute Assessment & Plan: IV steroids, rocephin and zithromax Code(s): J44.1 - CHRONIC OBSTRUCTIVE PULMONARY DISEASE W (ACUTE) EXACERBATION (3) Anxiety Current Visit: No Status: Acute Assessment & Plan: ordered klonopin prn while here, she was on it previously for her anxiety but had to stop due to opiate use/pain management. I told her we could treat her here with it prn during hospital stay but I was very clear that she would not be discharged on this medication and she understands. Code(s): F41.9 - ANXIETY DISORDER, UNSPECIFIED
[2018-11-10] MEDS: NICODERM CQ 14 MG TOP SCH (11:09)
[2018-11-10] MEDS: Apresoline 25 MG TABLET PO SCH ×3 (11:11→21:24)
[2018-11-10] MEDS: Cozaar 50 MG PO SCH (11:11)
[2018-11-10] MEDS: ECOTRIN 81 MG PO SCH (11:12)
[2018-11-10] MEDS: Klonopin 0.5 MG PO PRN ×2 (11:18→17:10)
[2018-11-10] MEDS: NovoLOG Insulin SQ PRN ×3 (12:28→21:37)
[2018-11-10] MEDS ORDERED: MEDICATION INTERVENTION MC SCH ×2 (13:00→13:30)
[2018-11-10] MEDS: CLARITIN 10 MG PO SCH (14:32)
[2018-11-10] MEDS: Prozac 20 MG PO SCH (14:32)
[2018-11-10] MEDS: NEURONTIN 300 MG PO SCH ×2 (14:33→21:26)
[2018-11-10] MEDS: MARY'S MOUTHWASH PO SCH ×3 (14:40→23:50)
[2018-11-10] MEDS ORDERED: GABAPENTIN 900 MG PO SCH (15:00)
[2018-11-10] MEDS: ROCEPHIN 1 Gm-D5w 50 ml Bag** 1 G/50 ML IVPB IV SCH (21:23)
[2018-11-10] MEDS: Seroquel 100 MG PO SCH (21:25)
[2018-11-10] MEDS: Klor Con 10 MEQ PO SCH (21:25)
[2018-11-10] MEDS: ZOCOR 20MG PO SCH (21:25)
[2018-11-10] MEDS: Cyclobenzaprine 10 MG PO SCH (21:26)
[2018-11-10] MEDS: DESYREL 50 MG PO SCH (21:26)
[2018-11-10] MEDS: TOPIRAMATE PO SCH (21:26)
[2018-11-10] MEDS ORDERED: Desyrel 150 MG PO SCH (22:00)
[2018-11-10] MEDS ORDERED: NORTRIPTYLINE HCL 25 MG PO SCH (22:00)
[2018-11-10] MEDS ORDERED: Topamax 25 MG PO SCH (22:00)
[2018-11-10] MEDS ORDERED: NON-FORMULARY ITEM (Trazodone Hcl [Desyrel] 100 MG) PO SCH (22:00)
[2018-11-10] MEDS ORDERED: QUETIAPINE FUMARATE 150 MG PO SCH (22:00)
[2018-11-10] MEDS: Zithromax 500 MG/ 250 ML NaCl Premix 500 MG/250 ML IVPB IV SCH (22:18)
[2018-11-11] MEDS: DUONEB 0.5-3 MG/3 ml Neb IH SCH ×6 (04:18→23:22)
[2018-11-11] MEDS: Norco 10/325 MG Tablet PO PRN ×2 (05:34→16:43)
[2018-11-11] MEDS: solu-MEDROL 125 MG IV SCH ×4 (05:34→23:47)
[2018-11-11] MEDS: Klonopin 0.5 MG PO PRN ×3 (05:34→16:43)
[2018-11-11] MEDS: MARY'S MOUTHWASH PO SCH ×3 (05:35→17:58)
[2018-11-11] MEDS: Sodium Chloride 0.9% 1000 ML 1,000 ML IV SCH ×2 (06:54→19:39)
[2018-11-11] MEDS: Advair Hfa 115/21 Common canister IH SCH ×2 (07:00→19:46)
[2018-11-11] MEDS: NovoLOG Insulin SQ PRN ×3 (08:12→16:44)
--- NOTE | 2018-11-11 09:09 | PCM.NOTE ---
Date and Time: 11/11/18 09 Subjective Assessment: patient is very anxious and more short of breath. requiring oxygen via facemask , has been fighting with her sister Objective Exam General Appearance: no apparent distress, alert, obese Neurologic Exam: alert, oriented x 3 Respiratory Exam: prolonged expirations, wheezing Cardiovascular Exam: regular rate/rhythm, normal heart sounds Gastrointestinal/Abdomen Exam: soft, No tenderness, No mass Extremity Exam: normal inspection, normal range of motion OBJECTIVE DATA Vital Signs: Vital Signs - 24 hr Temp Pulse Resp BP Pulse Ox 11/11/18 07:57 21 11/11/18 07:36 98.2 F 77 21 157/76 88 L 11/11/18 07:02 77 28 H 88 L 11/11/18 04:18 78 22 90 L 11/11/18 04:00 97.3 F 73 28 H 169/80 93 L 11/11/18 00:05 97.9 F 84 28 H 126/69 92 L 11/11/18 00:00 28 H 11/10/18 23:54 75 17 91 L 11/10/18 20:00 98.6 F 86 16 128/60 92 L 11/10/18 19:38 70 18 90 L 11/10/18 16:28 72 18 3 L 11/10/18 16:00 98.3 F 75 20 137/62 90 L 11/10/18 12:48 72 20 92 L 11/10/18 12:00 97.7 F 83 20 159/69 91 L 11/10/18 11:52 20 11/10/18 09:24 91 H 20 90 L Oxygen-Last 24 hours O2 Percentage 4 Liters = 36% O2 Percentage 2 Liters = 28% O2 Percentage 2 Liters = 28% Oxygen Flowrate (L/min)-RT 12 Oxygen Flowrate (L/min)-RT 10 Pain Assessment - Last Documented Pain Intensity 10 Pain Scale Used 0-10 Pain Scale Intake and Output: Intake & Output 11/08/18 11/09/18 11/10/18 11/11/18 11:59 11:59 11:59 11:59 Intake Total 240 3514 Output Total 750 Balance 240 2764 Weight 83.5 kg 86.7 kg Lab Results: Accuchecks Date 11/11/18 Date 11/10/18 Date 11/10/18 Date 11/10/18 Time 07:30 Time 21:00 Time 16:30 Time 11:30 Accucheck Value: 295 Accucheck Value: 348 Accucheck Value: 166 Accucheck Value: 420 Radiology Exams: Radiology Procedures Category Date Time Status CHEST 1 VIEW (PORTABLE) Stat Exams 11/10/18 03:11 Completed Assessment/Plan (1) Pneumonia Current Visit: Yes Status: Acute Assessment & Plan: on rocephin/zithromax Code(s): J18.9 - PNEUMONIA, UNSPECIFIED ORGANISM (2) COPD with exacerbation Current Visit: No Status: Acute Assessment & Plan: continue iv steroids, abx and nebs Code(s): J44.1 - CHRONIC OBSTRUCTIVE PULMONARY DISEASE W (ACUTE) EXACERBATION (3) Anxiety Current Visit: No Status: Acute Assessment & Plan: will increase klonopin today, anxiety seems to be her biggest problem currently. Code(s): F41.9 - ANXIETY DISORDER, UNSPECIFIED
[2018-11-11] MEDS: Klor Con 10 MEQ PO SCH ×2 (09:59→21:21)
[2018-11-11] MEDS: ECOTRIN 81 MG PO SCH (09:59)
[2018-11-11] MEDS: Prozac 20 MG PO SCH (09:59)
[2018-11-11] MEDS ORDERED: NON-FORMULARY ITEM (Atorvastatin Calcium [Atorvastatin Calcium] 40 MG) PO SCH (10:00)
[2018-11-11] MEDS: Apresoline 25 MG TABLET PO SCH ×3 (10:00→21:20)
[2018-11-11] MEDS ORDERED: PROZAC 10 MG PO SCH (10:00)
[2018-11-11] MEDS: Cyclobenzaprine 10 MG PO SCH ×2 (10:00→21:19)
[2018-11-11] MEDS: Cozaar 50 MG PO SCH (10:00)
[2018-11-11] MEDS: NICODERM CQ 14 MG TOP SCH (10:01)
[2018-11-11] MEDS: CLARITIN 10 MG PO SCH (10:01)
[2018-11-11] MEDS: NEURONTIN 300 MG PO SCH ×3 (10:01→21:20)
[2018-11-11] MEDS: TOPIRAMATE PO SCH ×2 (10:01→21:19)
[2018-11-11] MEDS: Toprol Xl 50 MG PO SCH (10:08)
[2018-11-11] MEDS: Flonase NASAL NS SCH (10:08)
[2018-11-11 11:07] LABS: A-aADO2 477; ABG HEMOGLOBIN 10.2; ABG POTASSIUM 3.9 (3.5-5.1); ABG SITE RIGHT BRACHIAL; ARTERIAL BLD GAS O2 SATURATION 88.6 % (95-100); ARTERIAL BLOOD GAS BASE EXCESS -3.8 (-2.0-2.0); ARTERIAL BLOOD GAS FIO2 80 %; ARTERIAL BLOOD GAS PCO2 33 mmHg (35-45); ARTERIAL BLOOD GAS PO2 52 mmHg (75-100); CARBOXYHEMOGLOBIN 1.5 % THgb (0.0-6.9); HCO3- 20.4 (22-28); HGB O2 SAT 86.5 g/dF (94-100); Methhemoglobin 0.9 % (1.4-1.5)
[2018-11-11 17:53] LABS: A-aADO2 307; ABG HEMOGLOBIN 10.3; ABG POTASSIUM 4.2 (3.5-5.1); ARTERIAL BLD GAS O2 SATURATION 97.9 % (95-100); ARTERIAL BLOOD GAS FIO2 65 %; ARTERIAL BLOOD GAS PCO2 38 mmHg (35-45); ARTERIAL BLOOD GAS PO2 109 mmHg (75-100); ARTERIAL BLOOD GAS VENT MODE BiPAP; ARTERIAL BLOOD GAS pH 7.37 (7.35-7.45); CARBOXYHEMOGLOBIN 1.3 % THgb (0.0-6.9); HGB O2 SAT 95.5 g/dF (94-100); Methhemoglobin 1.2 % (1.4-1.5); paO2 pAO1 0.26
[2018-11-11 17:54] LABS: ABG SITE LEFT BRACHIAL
[2018-11-11] MEDS: ZOCOR 20MG PO SCH (21:20)
[2018-11-11] MEDS: Seroquel 100 MG PO SCH (21:20)
[2018-11-11] MEDS: DESYREL 50 MG PO SCH (21:21)
[2018-11-11] MEDS: ROCEPHIN 1 Gm-D5w 50 ml Bag** 1 G/50 ML IVPB IV SCH (21:21)
[2018-11-11] MEDS: Ativan 2 MG/1 ML VIAL IV PRN (21:29)
[2018-11-11] MEDS: Zithromax 500 MG/ 250 ML NaCl Premix 500 MG/250 ML IVPB IV SCH (22:09)
[2018-11-12] MEDS: MARY'S MOUTHWASH PO SCH ×5 (00:50→23:47)
[2018-11-12] MEDS: DUONEB 0.5-3 MG/3 ml Neb IH SCH ×6 (03:09→22:44)
[2018-11-12] MEDS ORDERED: Klonopin 0.5 MG PO PRN (04:06)
[2018-11-12] MEDS: solu-MEDROL 125 MG IV SCH ×6 (05:31→23:45)
[2018-11-12] MEDS: Ativan 2 MG/1 ML VIAL IV PRN ×3 (08:03→20:35)
[2018-11-12] MEDS: NovoLOG Insulin SQ PRN ×2 (08:05→11:58)
--- NOTE | 2018-11-12 08:55 | PCM.NOTE ---
Date and Time: 11/12/18847 Subjective Assessment: Pt has been tachypneic overnight with RR from 28-38. On Bipap; when on the oximask (15L) her sats drop down into the 80s. Tolerating po. Has been anxious overnight despite IV ativan (changed to po BZD with loss of her IV). Pt with very difficult IV access - was stuck x 7. Pt c/o some visual hallucinations last night which have resolved. Over the weekend had CT chest with neg PE, +pulm edema and pneumonitis. Last ABG was at 5:[address] Short last week. Pt states she would feel better if she could just go home. - Review of Systems Constitutional: No Fever Respiratory: Cough, Short Of Breath Objective Exam General Appearance: mild distress, alert, anxiety Neurologic Exam: cooperative, other (pressured speech) Skin Exam: normal color, warm, dry, No rash Respiratory Exam: diminished breath sounds, prolonged expirations, rhonchi ( bilat bases), No wheezing Cardiovascular Exam: regular rate/rhythm, normal heart sounds, No murmur Extremity Exam: normal inspection, other (UE with mild generalized edema, no pitting, and bruises scattered throughout), No pedal edema, No swelling Back Exam: normal inspection, No rash OBJECTIVE DATA Vital Signs: Vital Signs - 24 hr Temp Pulse Resp BP Pulse Ox 11/12/18 08:00 36 H 11/12/18 07:58 68 35 H 98 11/12/18 07:57 96.8 F 72 28 H 157/77 98 11/12/18 04:10 98.2 F 69 34 H 168/87 97 11/12/18 04:00 33 H 11/12/18 03:09 73 33 H 97 11/12/18 00:00 27 H 11/11/18 23:54 98.3 F 75 27 H 110/60 94 L 11/11/18 23:23 75 27 H 94 L 11/11/18 20:00 98.1 F 66 35 H 147/76 95 11/11/18 19:46 70 38 H 91 L 11/11/18 16:00 98.6 F 76 30 H 163/71 95 11/11/18 15:53 34 H 11/11/18 14:32 79 36 H 96 11/11/18 12:16 88 36 H 95 11/11/18 11:42 36 H 11/11/18 11:39 98.5 F 80 28 H 183/84 92 L Oxygen-Last 24 hours O2 Percentage 60% Oxygen Flowrate (L/min)-RT 65 Pain Assessment - Last Documented Pain Intensity 5 Pain Scale Used 0-10 Pain Scale Intake and Output: Intake & Output 11/09/18 11/10/18 11/11/18 11/12/18 11:59 11:59 11:59 11:59 Intake Total 240 3514 2776 Output Total 750 2050 Balance 240 5354 726 Weight 83.5 kg 86.7 kg 89.9 kg Lab Results: Accuchecks Date 11/12/18 Date 11/11/18 Date 11/11/18 Time 07:30 Time 16:30 Time 11:30 Accucheck Value: 274 Accucheck Value: 176 Accucheck Value: 308 Accucheck Value: 348 Lab Results-Last 24 Hours 11/11/18 11/11/18 11/11/18 Range/Units 10:57 16:08 17:45 D-Dimer 1052 H* (215-500) ng/mL Puncture Site RIGHT BRACHIAL LEFT BRACHIAL pCO2 33 L 38 (35-45) mmHg pO2 52 L 109 H (75-100) mmHg Base Excess -3.8 L -3.0 L (-2.0-2.0) O2 Saturation 86.5 L 95.5 (94-100) g/dF ABG pH 7.40 7.37 (7.35-7.45) ABG HCO3 20.4 L 22.0 (22-28) ABG O2 Sat (Measured) 88.6 L 97.9 (95-100) % Rommel Test NOT APPLICABLE NOT APPLICABLE A-a Gradient 477 307 a/A Ratio 0.10 0.26 Hemoglobin 10.2 10.3 Carboxyhemoglobin 1.5 1.3 (0.0-6.9) % THgb Methemoglobin 0.9 L 1.2 L (1.4-1.5) % Potassium 3.9 4.2 (3.5-5.1) Temperature 37.0 37.0 C POC O2 Flow Rate 80 65 % Vent Mode BiPAP Inspiratory BiPAP 14 Expiratory BiPAP 7 Radiology Exams: Radiology Procedures Category Date Time Status CHEST 1 VIEW (PORTABLE) Stat Exams 11/12/18 08:12 Taken CHEST WITH CONTRAST [CT] Stat Exams 11/11/18 16:28 Taken Multi-Disciplinary Progress Notes: Multi-Disciplinary Progress Notes 11/11/18 13:56 Respiratory Note by Jaleesa Ordoñez PT ASLEEP AND RESTING WELL ON BIPAP SPO2 96%. 06/07-70%. Initialized on 11/11/18 13:56 - END OF NOTE 11/11/18 13:02 Respiratory Note by Jaleesa Ordoñez SPOKE WITH DR CABRERA VIA PHONE ON ABS RESULTS ,ISSUES WITH SATS AND THAT I HAD PLACED HER ON BIPAP.PT WAS PLACED ON OXYMIZER FOR APPROX 45MIN TO EAT LUNCH SPO2 DROPPED TO 83%. WAS PLACED BACK ON BIPAP. Initialized on 11/11/18 13:02 - END OF NOTE Assessment/Plan (1) Respiratory distress Current Visit: Yes Status: Acute Assessment & Plan: increasing need for O2. I have spoken with RT and with Dr. Short. ABG to be done and called to him. He will transfer pt if necessary. Code(s): R06.03 - ACUTE RESPIRATORY DISTRESS (2) Pneumonia Current Visit: Yes Status: Acute Qualifiers: Pneumonia type: due to unspecified organism Laterality: bilateral Lung location: unspecified part of lung Qualified Code(s): J18.9 - Pneumonia, unspecified organism Assessment & Plan: Changing pt to Levaquin from IV rocephin and zithromax. Still on IV solumedrol. Code(s): J18.9 - PNEUMONIA, UNSPECIFIED ORGANISM (3) Anxiety Current Visit: No Status: Chronic Assessment & Plan: acute on chronic. On BZD here; has been explained to pt that she will not be sent home on BZD. Code(s): F41.9 - ANXIETY DISORDER, UNSPECIFIED (4) Hypertension Current Visit: No Status: Chronic Qualifiers: Hypertension type: essential hypertension Qualified Code(s): I10 - Essential (primary) hypertension Code(s): I10 - ESSENTIAL (PRIMARY) HYPERTENSION (5) Poor intravenous access Current Visit: Yes Status: Acute Assessment & Plan: PICC line to be placed today. Code(s): Z78.9 - OTHER SPECIFIED HEALTH STATUS
--- NOTE | 2018-11-12 09:11 | XRAY ---
Indication: Pneumonia. Comparison: November 10, 2018. Portable chest again demonstrates diffuse bilateral airspace disease with new lingula consolidation. No large effusion. Heart is not enlarged. No new cardiopulmonary abnormalities.
--- NOTE | 2018-11-12 09:11 | XRAY ---
Indication: Cough and short of breath. Elevated d-dimer. Multiple contiguous axial images obtained through the chest using 80 cc Isovue 370 contrast and PE protocol. Comparison: None There is good opacification of the pulmonary arteries to include the lobar and segmental branches. No filling defect or pulmonary embolus. Heart is not enlarged. Aorta is normal in course and caliber. Tiny left perihilar calcified nodes. Small mediastinal lymph nodes, largest right paratracheal measuring 12 x 16 mm presumed reactive. Examination of the lung parenchyma demonstrates extensive diffuse bilateral interstitial alveolar opacities with multifocal small patchy consolidations and tiny bilateral effusions either diffuse pneumonitis versus pulmonary edema. Tiny left lower lobe calcified granuloma. Bony thorax intact. Limited upper abdomen including adrenal glands unremarkable. Impression: 1. Negative pulmonary embolus. 2. Extensive diffuse bilateral interstitial alveolar opacities with tiny effusions either pneumonitis versus pulmonary edema. 3. Small mediastinal lymph nodes presumed reactive. Comment: Preliminary interpretation was made by [facility]. No discrepancy. CT DI 23.68
[2018-11-12 09:37] LABS: A-aADO2 312; ABG HEMOGLOBIN 10.2; ARTERIAL BLD GAS O2 SATURATION 98.6 % (95-100); ARTERIAL BLOOD GAS BASE EXCESS -2.7 (-2.0-2.0); ARTERIAL BLOOD GAS FIO2 65 %; ARTERIAL BLOOD GAS PCO2 35 mmHg (35-45); ARTERIAL BLOOD GAS PO2 108 mmHg (75-100); ARTERIAL BLOOD GAS VENT MODE BiPAP; CARBOXYHEMOGLOBIN 1.2 % THgb (0.0-6.9); HCO3- 21.7 (22-28); HGB O2 SAT 96.6 g/dF (94-100); Methhemoglobin 0.8 % (1.4-1.5); paO2 pAO1 0.26
[2018-11-12 09:38] LABS: ABG SITE LEFT BRACHIAL; ARTERIAL BLOOD GAS VENT RATE 16 /MIN
[2018-11-12] MEDS: NICODERM CQ 14 MG TOP SCH (09:49)
[2018-11-12] MEDS: Flonase NASAL NS SCH (09:50)
[2018-11-12] MEDS: ECOTRIN 81 MG PO SCH (09:51)
[2018-11-12] MEDS: Cyclobenzaprine 10 MG PO SCH ×2 (09:51→20:33)
[2018-11-12] MEDS: CLARITIN 10 MG PO SCH (09:51)
[2018-11-12] MEDS: Cozaar 50 MG PO SCH (09:52)
[2018-11-12] MEDS: Apresoline 25 MG TABLET PO SCH ×3 (09:53→20:34)
[2018-11-12] MEDS: Klor Con 10 MEQ PO SCH ×2 (09:53→20:34)
[2018-11-12] MEDS: Prozac 20 MG PO SCH (09:54)
[2018-11-12] MEDS: Toprol Xl 50 MG PO SCH (09:54)
[2018-11-12] MEDS: TOPIRAMATE PO SCH ×2 (09:54→20:35)
[2018-11-12] MEDS: NEURONTIN 300 MG PO SCH ×3 (09:54→20:34)
[2018-11-12] MEDS: Levofloxacin 500MG/100ML D5W 500 MG/100 ML BAG IV SCH (10:00)
[2018-11-12] MEDS: Klonopin 0.5 MG PO PRN ×2 (10:07→13:42)
[2018-11-12 10:17] LABS: ALBUMIN 3.1 g/dL (3.5-5.0); ALKALINE PHOSPHATASE 102 U/L (38-126); ANION GAP 12.9 MEQ/L (5-15); BLOOD UREA NITROGEN 24 mg/dL (7-17); CHLORIDE 111 mmol/L (98-107); Calcium 8.7 mg/dL (8.4-10.2); Carbon Dioxide 21 mmol/L (22-30); Creatinine 1 0.57 mg/dL (0.52-1.04); Glucose 226 mg/dL (74-106); NT PRO BNP 1370 pg/mL (0-900); Potassium 4.6 mmol/L (3.5-5.1); SGOT/AST 61 U/L (14-36); SGPT/ALT 75 U/L (0-35); SODIUM 141 mmol/L (137-145); Total Protein 6.1 g/dL (6.3-8.2)
[2018-11-12] MEDS: Advair Hfa 115/21 Common canister IH SCH ×2 (10:24→18:59)
--- NOTE | 2018-11-12 13:09 | XRAY ---
Indication: PICC line. Comparison: Taken earlier in the day. Single portable chest demonstrates new right arm PICC line with the tip projecting over the distal SVC. Remaining chest unchanged again with diffuse bilateral airspace disease and lingular consolidation. Heart is not enlarged.
[2018-11-12 13:38] LABS: Hematocrit 29.7 % (35-47); Hemoglobin 9.3 gm/dl (12.0-16.0); Mean Cell Volume 90.5 fl (78-100); Mean Corpuscular Hgb Concent. 31.3 g/dl (32-36); Mean Platelet Volume 11.6 fl (6-9.5); Platelet Count 193 K/mm3 (150-450); Red Blood Count 3.28 M/mm3 (4.1-5.4); White Blood Count 11.5 K/mm3 (4.0-10.5)
[2018-11-12] MEDS: Norco 10/325 MG Tablet PO PRN (13:41)
[2018-11-12 13:56] LABS: Mean Corpuscular Hemoglobin 28.3 pg (26-32)
[2018-11-12 14:49] LABS: BAND 5 % (0.0-2.0); Lymphocytes 3 % (24-44); Monocyte 1 % (0.0-12.0); Neutrophils 91 % (36.0-66.0); Platelet Estimate NORMAL (NORMAL); Total Cells Counted 100
[2018-11-12] MEDS ORDERED: ENOXAPARIN SODIUM SQ ONE (19:40)
[2018-11-12] MEDS ORDERED: BUMEX 1 MG IV SCH (19:45)
[2018-11-12] MEDS: Seroquel 100 MG PO SCH (20:32)
[2018-11-12] MEDS: ZOCOR 20MG PO SCH (20:32)
[2018-11-12] MEDS: DESYREL 50 MG PO SCH (20:34)
[2018-11-13] MEDS: NovoLOG Insulin SQ PRN ×3 (00:21→11:22)
[2018-11-13] MEDS: Ativan 2 MG/1 ML VIAL IV PRN ×2 (02:55→16:36)
[2018-11-13] MEDS: DUONEB 0.5-3 MG/3 ml Neb IH SCH ×6 (03:02→23:22)
[2018-11-13] MEDS: MARY'S MOUTHWASH PO SCH ×4 (05:27→23:13)
[2018-11-13] MEDS: solu-MEDROL 125 MG IV SCH ×4 (05:27→23:13)
[2018-11-13] MEDS: Advair Hfa 115/21 Common canister IH SCH ×2 (07:25→19:41)
--- NOTE | 2018-11-13 08:38 | XRAY ---
Indication: Short of breath. Comparison: One day earlier. Portable chest demonstrates very minimal improvement of the diffuse bilateral airspace disease and lingular consolidation with stable right arm PICC line. Heart is not enlarged. No new cardiopulmonary abnormalities.
[2018-11-13] MEDS: NICODERM CQ 14 MG TOP SCH (09:02)
[2018-11-13] MEDS: Apresoline 25 MG TABLET PO SCH ×3 (09:02→23:07)
[2018-11-13] MEDS: Klonopin 0.5 MG PO PRN ×3 (09:02→23:40)
[2018-11-13] MEDS: CLARITIN 10 MG PO SCH (09:03)
[2018-11-13] MEDS: NEURONTIN 300 MG PO SCH ×3 (09:03→23:07)
[2018-11-13] MEDS: Cozaar 50 MG PO SCH (09:03)
[2018-11-13] MEDS: Klor Con 10 MEQ PO SCH ×2 (09:03→23:09)
[2018-11-13] MEDS: Norco 10/325 MG Tablet PO PRN ×2 (09:03→23:41)
[2018-11-13] MEDS: Prozac 20 MG PO SCH (09:03)
[2018-11-13] MEDS: ECOTRIN 81 MG PO SCH (09:03)
[2018-11-13] MEDS: Toprol Xl 50 MG PO SCH (09:03)
--- NOTE | 2018-11-13 09:03 | PCM.NOTE ---
Date and Time: 11/13/18 0859 Subjective Assessment: Pt is feeling better. Dr. Short saw her last night, thank you! Pt thinks he came early this morning. She states she slept well last night. Westley po well. Less dyspneic. Asking for eye drops; eyes are watery and itchy. - Review of Systems Constitutional: No Fever Respiratory: Cough, Short Of Breath Objective Exam General Appearance: no apparent distress, anxiety Neurologic Exam: alert, cooperative Skin Exam: normal color, warm, dry, No rash Respiratory Exam: diminished breath sounds (good air exchange), prolonged expirations, rhonchi (scattered), No crackles/rales, No wheezing Cardiovascular Exam: regular rate/rhythm, normal heart sounds, No murmur OBJECTIVE DATA Vital Signs: Vital Signs - 24 hr Temp Pulse Resp BP Pulse Ox 11/13/18 07:36 97.7 F 66 22 180/87 96 11/13/18 04:00 97.3 F 60 22 170/86 97 11/13/18 03:43 58 L 21 11/13/18 00:00 98.2 F 64 25 H 150/72 95 11/12/18 22:58 66 28 H 96 11/12/18 20:00 98.9 F 70 28 H 141/68 97 11/12/18 19:23 70 29 H 96 11/12/18 16:00 98.2 F 73 34 H 157/73 99 11/12/18 15:05 66 33 H 96 11/12/18 12:00 34 H 11/12/18 11:46 96.2 F 77 32 H 157/78 92 L 11/12/18 11:08 68 35 H 97 Oxygen-Last 24 hours Oxygen Flowrate (L/min)-RT 65 Oxygen Flowrate (L/min)-RT 65 Pain Assessment - Last Documented Pain Intensity 4 Pain Scale Used 0-10 Pain Scale,FLACC Intake and Output: Intake & Output 11/10/18 11/11/18 11/12/18 11/13/18 11:59 11:59 11:59 11:59 Intake Total 240 3514 2776 1710 Output Total 750 2050 2900 Balance 240 2764 726 -1190 Weight 83.5 kg 86.7 kg 89.9 kg 89.2 kg Lab Results: Accuchecks Date 11/12/18 Date 11/12/18 Date 11/12/18 Time 22:00 Time 16:30 Time 11:30 Accucheck Value: 396 Accucheck Value: 180 Accucheck Value: 275 Lab Results-Last 24 Hours 11/12/18 11/12/18 11/12/18 Range/Units 09:00 09:45 09:45 WBC 11.5 H (4.0-10.5) K/mm3 RBC 3.28 L (4.1-5.4) M/mm3 Hgb 9.3 L (12.0-16.0) gm/dl Hct 29.7 L (35-47) % MCV 90.5 (78-100) fl MCH 28.3 (26-32) pg MCHC 31.3 L (32-36) g/dl RDW 17.0 H (11.5-14.0) % Plt Count 193 (150-450) K/mm3 MPV 11.6 H (6-9.5) fl Segmented Neutrophils 91 H (36.0-66.0) % Band Neutrophils 5 H (0.0-2.0) % Lymphocytes (Manual) 3 L (24-44) % Monocytes (Manual) 1 (0.0-12.0) % Platelet Estimate NORMAL (NORMAL) RBC Morphology NORMAL Puncture Site LEFT BRACHIAL pCO2 35 (35-45) mmHg pO2 108 H (75-100) mmHg Base Excess -2.7 L (-2.0-2.0) O2 Saturation 96.6 (94-100) g/dF ABG pH 7.40 (7.35-7.45) ABG HCO3 21.7 L (22-28) ABG O2 Sat (Measured) 98.6 (95-100) % Rommel Test NOT APPLICABLE A-a Gradient 312 a/A Ratio 0.26 Hemoglobin 10.2 Carboxyhemoglobin 1.2 (0.0-6.9) % THgb Methemoglobin 0.8 L (1.4-1.5) % Potassium 4.0 4.6 (3.5-5.1) Temperature 37.0 C POC O2 Flow Rate 65 % Vent Mode BiPAP Vent Rate 16 /MIN Inspiratory BiPAP 14 Expiratory BiPAP 7 Sodium 141 (137-145) mmol/L Chloride 111 H (98-107) mmol/L Carbon Dioxide 21 L (22-30) mmol/L Anion Gap 12.9 (5-15) MEQ/L BUN 24 H (7-17) mg/dL Creatinine 0.57 (0.52-1.04) mg/dL Estimated GFR > 60.0 ML/MIN Glucose 226 H (74-106) mg/dL Calcium 8.7 (8.4-10.2) mg/dL Total Bilirubin 0.50 (0.2-1.3) mg/dL AST 61 H (14-36) U/L ALT 75 H (0-35) U/L Alkaline Phosphatase 102 (38-126) U/L Troponin I (0.000-0.034) ng/mL NT-Pro-B Natriuret Pep 1370 H (0-900) pg/mL Serum Total Protein 6.1 L (6.3-8.2) g/dL Albumin 3.1 L (3.5-5.0) g/dL 11/12/18 Range/Units 09:45 WBC (4.0-10.5) K/mm3 RBC (4.1-5.4) M/mm3 Hgb (12.0-16.0) gm/dl Hct (35-47) % MCV (78-100) fl MCH (26-32) pg MCHC (32-36) g/dl RDW (11.5-14.0) % Plt Count (150-450) K/mm3 MPV (6-9.5) fl Segmented Neutrophils (36.0-66.0) % Band Neutrophils (0.0-2.0) % Lymphocytes (Manual) (24-44) % Monocytes (Manual) (0.0-12.0) % Platelet Estimate (NORMAL) RBC Morphology Puncture Site pCO2 (35-45) mmHg pO2 (75-100) mmHg Base Excess (-2.0-2.0) O2 Saturation (94-100) g/dF ABG pH (7.35-7.45) ABG HCO3 (22-28) ABG O2 Sat (Measured) (95-100) % Rommel Test A-a Gradient a/A Ratio Hemoglobin Carboxyhemoglobin (0.0-6.9) % THgb Methemoglobin (1.4-1.5) % Potassium (3.5-5.1) Temperature C POC O2 Flow Rate % Vent Mode Vent Rate /MIN Inspiratory BiPAP Expiratory BiPAP Sodium (137-145) mmol/L Chloride (98-107) mmol/L Carbon Dioxide (22-30) mmol/L Anion Gap (5-15) MEQ/L BUN (7-17) mg/dL Creatinine (0.52-1.04) mg/dL Estimated GFR ML/MIN Glucose (74-106) mg/dL Calcium (8.4-10.2) mg/dL Total Bilirubin (0.2-1.3) mg/dL AST (14-36) U/L ALT (0-35) U/L Alkaline Phosphatase (38-126) U/L Troponin I < 0.012 (0.000-0.034) ng/mL NT-Pro-B Natriuret Pep (0-900) pg/mL Serum Total Protein (6.3-8.2) g/dL Albumin (3.5-5.0) g/dL Radiology Exams: Radiology Procedures Category Date Time Status CHEST 1 VIEW (PORTABLE) Routine Exams 11/13/18 08:00 Completed CHEST 1 VIEW (PORTABLE) Stat Exams 11/12/18 08:12 Completed CHEST 1 VIEW (PORTABLE) Stat Exams 11/12/18 12:50 Completed CHEST WITH CONTRAST [CT] Stat Exams 11/11/18 16:28 Completed Multi-Disciplinary Progress Notes: Multi-Disciplinary Progress Notes 11/12/18 09:28 Pharmacy Note by Lionel Amaya Please be aware of possible drug interaction with Levaquin and Seroquel. May prolong QT interval. Initialized on 11/12/18 09:28 - END OF NOTE Assessment/Plan (1) Respiratory distress Current Visit: Yes Status: Resolved Assessment & Plan: Her respirations are in the normal range this morning. Changed antibiotic and Dr. Short added bumex. Code(s): R06.03 - ACUTE RESPIRATORY DISTRESS (2) Pneumonia Current Visit: Yes Status: Acute Qualifiers: Pneumonia type: due to unspecified organism Laterality: bilateral Lung location: unspecified part of lung Qualified Code(s): J18.9 - Pneumonia, unspecified organism Assessment & Plan: On levaquin day #2 with good improvement. Code(s): J18.9 - PNEUMONIA, UNSPECIFIED ORGANISM (3) Anxiety Current Visit: No Status: Chronic Assessment & Plan: improved Code(s): F41.9 - ANXIETY DISORDER, UNSPECIFIED (4) Hypertension Current Visit: No Status: Chronic Qualifiers: Hypertension type: essential hypertension Qualified Code(s): I10 - Essential (primary) hypertension Code(s): I10 - ESSENTIAL (PRIMARY) HYPERTENSION (5) Poor intravenous access Current Visit: Yes Status: Resolved Assessment & Plan: has picc line Code(s): Z78.9 - OTHER SPECIFIED HEALTH STATUS (6) CHF (congestive heart failure) Current Visit: Yes Status: Acute Qualifiers: Heart failure type: unspecified Heart failure chronicity: unspecified Qualified Code(s): I50.9 - Heart failure, unspecified Assessment & Plan: will get echocardiogram Code(s): I50.9 - HEART FAILURE, UNSPECIFIED
[2018-11-13] MEDS: Cyclobenzaprine 10 MG PO SCH ×2 (09:04→23:06)
[2018-11-13] MEDS: Flonase NASAL NS SCH (09:05)
[2018-11-13] MEDS: TOPIRAMATE PO SCH ×2 (09:05→23:09)
[2018-11-13] MEDS: Levofloxacin 500MG/100ML D5W 500 MG/100 ML BAG IV SCH (09:05)
--- NOTE | 2018-11-13 09:44 | CONS ---
CONSULT DATE: 11/12/2018 HISTORY: Vicki Bernard is a 58 year-old woman known to me from office, who presented to [facility] Emergency Room with worsening shortness of breath. The patient was noted to be significantly tachypneic with respiratory rate 20 to 38 and despite being on BiPAP with high flow oxygen, was noted to have marginal oxygen saturation. She had positive D-dimer for which CT chest was obtained with pulmonary embolism protocol. CT was negative for pulmonary embolization. Extensive bilateral pulmonary interstitial alveolar opacity was seen suggestive of pneumonitis or pulmonary edema, mild mediastinal adenopathy was seen as well. At the time of my evaluation the patient oxygen dependent and brief attempts to take her off of BiPAP have been unsuccessful with drop in oxygen saturation immediately. She has cough which has been largely nonproductive. Arterial blood gases obtained have shown pH of 7.40, pCO2 of 35 and pO2 of 108 on BiPAP. Original pO2 was 40. The patient denies chest pain. She has cough which has been minimally productive. Influenza A/B along with respiratory syncytial virus have been negative. PAST MEDICAL HISTORY: Positive for history of chronic obstructive pulmonary disease, hypertension, anxiety. She has history of diabetes mellitus, history of bipolar disorder, allergic rhinitis and chronic headaches. PAST SURGICAL HISTORY: She has had section, colonoscopy and cholecystectomy. PERSONAL AND SOCIAL HISTORY: The patient is an active smoker. MEDICATIONS: Home and current medications are reviewed. ALLERGIES: ALLERGIES NOTED. PHYSICAL EXAMINATION: This is a middle aged woman who appears mildly tachypneic even with BiPAP on. Vital signs noted. HEENT: Normocephalic. Oral exam is limited. CVS: Shows first and second heart sounds are normal, regular, rhythmic. RESPIRATORY: Shows diminished breath sounds, bilateral crackles are heard. ABDOMEN: Soft. EXTREMITIES: No significant edema is noted. LABORATORY DATA AND TESTS: White count 11.5, hemoglobin 9.3, hematocrit 30, PLT 193,000. Sodium 141, potassium 4.6, chloride 111, bicarb 21, glucose 226, BUN 24, creatinine 0.5. Troponin has been negative. ABG's reviewed. BNP 1370. ASSESSMENT: This is a 58 year old woman admitted with: 1) Acute on chronic hypoxic respiratory failure. 2) Bilateral community acquired pneumonia. 3) Interstitial involvement, question volume overload with elevated BNP. 4) History of diabetes mellitus. 5) History of bipolar disorder. RECOMMENDATIONS: 1) The patient is continued on antibiotics including Rocephin and Zithromax. 2) Agree with steroids. 3) Cautious diuresis. 4) Deep venous thrombosis and GI prophylaxis. 5) Still very marginal from pulmonary standpoint. If intubated would be beneficial in improving gas exchange, will continue close monitoring. Thank you for allowing me to participate in the care of this patient. I can be reached at any point if any concerns remain regarding her care.
[2018-11-13] MEDS: BUMEX 1 MG IV SCH ×2 (10:23→23:10)
[2018-11-13] MEDS: Patanol 1% OPHTHALMIC OP SCH ×2 (10:23→23:12)
[2018-11-13] MEDS: ZOCOR 20MG PO SCH (23:07)
[2018-11-13] MEDS: Seroquel 100 MG PO SCH (23:08)
[2018-11-13] MEDS: DESYREL 50 MG PO SCH (23:08)
[2018-11-13] MEDS: ENOXAPARIN SODIUM SQ SCH (23:09)
[2018-11-14] MEDS: solu-MEDROL 125 MG IV SCH ×4 (05:29→23:46)
[2018-11-14] MEDS: MARY'S MOUTHWASH PO SCH ×4 (05:34→23:45)
[2018-11-14] MEDS: DUONEB 0.5-3 MG/3 ml Neb IH SCH ×5 (08:34→23:20)
[2018-11-14] MEDS: Advair Hfa 115/21 Common canister IH SCH ×2 (08:34→19:01)
--- NOTE | 2018-11-14 08:37 | PCM.NOTE ---
Date and Time: 11/14/18833 Subjective Assessment: Pt feeling better, on high flow O2. Westley po well. Sleeping well. States she has been limiting her visitors. Wants to go home today. - Review of Systems Constitutional: No Fever Respiratory: Cough, Short Of Breath Objective Exam General Appearance: no apparent distress, alert, anxiety (but decreased) Neurologic Exam: oriented x 3, cooperative Skin Exam: normal color, warm, dry, No rash Respiratory Exam: diminished breath sounds (good air exchange), prolonged expirations, No crackles/rales, No rhonchi, No wheezing Cardiovascular Exam: regular rate/rhythm, normal heart sounds, No murmur Extremity Exam: normal inspection, No pedal edema, No swelling OBJECTIVE DATA Vital Signs: Vital Signs - 24 hr Temp Pulse Resp BP Pulse Ox 11/14/18 07:32 97.8 F 68 22 169/77 94 L 11/14/18 04:17 61 20 94 L 11/14/18 04:15 98.0 F 63 20 147/69 94 L 11/14/18 04:00 20 11/14/18 00:20 98.3 F 73 25 H 160/80 92 L 11/14/18 00:00 25 H 11/13/18 23:35 66 18 92 L 11/13/18 21:06 70 22 96 11/13/18 20:00 98.2 F 75 30 H 152/70 96 11/13/18 16:00 22 11/13/18 15:04 97.8 F 92 H 22 170/84 92 L 11/13/18 14:39 68 24 96 11/13/18 12:31 97.8 F 91 H 24 172/84 91 L 11/13/18 12:00 26 H 11/13/18 11:27 96 11/13/18 11:10 72 24 96 11/13/18 09:04 88 24 96 Oxygen-Last 24 hours O2 Percentage 40% O2 Percentage 6 Liters = 44% Oxygen Flowrate (L/min)-RT 30 Oxygen Flowrate (L/min)-RT 30 Pain Assessment - Last Documented Pain Intensity 0 Pain Scale Used FLACC Intake and Output: Intake & Output 11/11/18 11/12/18 11/13/18 11/14/18 11:59 11:59 11:59 11:59 Intake Total 3514 2776 1710 1400 Output Total 750 2050 3500 3400 Balance 9944 679 -7480 -2000 Weight 86.7 kg 89.9 kg 89.2 kg 89.6 kg Lab Results: Accuchecks Date 11/13/18 Date 11/13/18 Date 11/13/18 Time 21:27 Time 16:30 Time 11:30 Accucheck Value: 463 Accucheck Value: 412 Radiology Exams: Radiology Procedures Category Date Time Status CHEST 1 VIEW (PORTABLE) Routine Exams 11/13/18 08:00 Completed CHEST 1 VIEW (PORTABLE) Stat Exams 11/12/18 08:12 Completed CHEST 1 VIEW (PORTABLE) Stat Exams 11/12/18 12:50 Completed Assessment/Plan (1) Pneumonia Current Visit: Yes Status: Acute Qualifiers: Pneumonia type: due to unspecified organism Laterality: bilateral Lung location: unspecified part of lung Qualified Code(s): J18.9 - Pneumonia, unspecified organism Assessment & Plan: Much improved. On IV levaquin day #3. She, of course, would like to d/c to home. Her judgement regarding her own health is poor. With her anxiety, I have advised her that we will take it "day by day" regarding possible discharge to home. Of course she would like to d/c home tomorrow. I anticipate it may be several more days; pt would have to be weaned down on O2 prior to discharge. Code(s): J18.9 - PNEUMONIA, UNSPECIFIED ORGANISM (2) Anxiety Current Visit: No Status: Chronic Code(s): F41.9 - ANXIETY DISORDER, UNSPECIFIED (3) Hypertension Current Visit: No Status: Chronic Qualifiers: Hypertension type: essential hypertension Qualified Code(s): I10 - Essential (primary) hypertension Code(s): I10 - ESSENTIAL (PRIMARY) HYPERTENSION (4) CHF (congestive heart failure) Current Visit: Yes Status: Acute Qualifiers: Heart failure type: unspecified Heart failure chronicity: unspecified Qualified Code(s): I50.9 - Heart failure, unspecified Assessment & Plan: On IV bumex with improvement. Code(s): I50.9 - HEART FAILURE, UNSPECIFIED
[2018-11-14] MEDS: NovoLOG Insulin SQ PRN ×2 (09:26→22:17)
[2018-11-14] MEDS: NEURONTIN 300 MG PO SCH ×3 (09:28→22:19)
[2018-11-14] MEDS: Klonopin 0.5 MG PO PRN ×2 (09:29→16:37)
[2018-11-14] MEDS: Apresoline 25 MG TABLET PO SCH ×3 (09:30→22:20)
[2018-11-14] MEDS: ECOTRIN 81 MG PO SCH (09:32)
[2018-11-14] MEDS: Toprol Xl 50 MG PO SCH (09:33)
[2018-11-14] MEDS: Norco 10/325 MG Tablet PO PRN ×3 (09:33→22:37)
[2018-11-14] MEDS: Cyclobenzaprine 10 MG PO SCH ×2 (09:34→22:19)
[2018-11-14] MEDS: Cozaar 50 MG PO SCH (09:34)
[2018-11-14] MEDS: Klor Con 10 MEQ PO SCH ×2 (09:35→22:19)
[2018-11-14] MEDS: Prozac 20 MG PO SCH (09:36)
[2018-11-14] MEDS: CLARITIN 10 MG PO SCH (09:36)
[2018-11-14] MEDS: Patanol 1% OPHTHALMIC OP SCH ×2 (09:46→22:18)
[2018-11-14] MEDS: TOPIRAMATE PO SCH ×2 (09:47→22:19)
[2018-11-14] MEDS: Flonase NASAL NS SCH (09:47)
[2018-11-14] MEDS: BUMEX 1 MG IV SCH ×2 (09:51→22:20)
[2018-11-14] MEDS: Levofloxacin 500MG/100ML D5W 500 MG/100 ML BAG IV SCH (09:53)
[2018-11-14] MEDS: NICODERM CQ 14 MG TOP SCH (11:10)
[2018-11-14] MEDS ORDERED: NovoLOG Insulin SQ ONE ×2 (11:46→16:01)
[2018-11-14] MEDS ORDERED: Lantus Insulin SQ ONE (16:02)
[2018-11-14] MEDS: ENOXAPARIN SODIUM SQ SCH (22:18)
[2018-11-14] MEDS: Seroquel 100 MG PO SCH (22:18)
[2018-11-14] MEDS: DESYREL 50 MG PO SCH (22:19)
[2018-11-14] MEDS: ZOCOR 20MG PO SCH (22:19)
[2018-11-15] MEDS: DUONEB 0.5-3 MG/3 ml Neb IH SCH ×6 (02:55→23:26)
[2018-11-15] MEDS: MARY'S MOUTHWASH PO SCH ×4 (05:42→23:43)
[2018-11-15] MEDS: solu-MEDROL 125 MG IV SCH (05:42)
[2018-11-15] MEDS: Advair Hfa 115/21 Common canister IH SCH ×2 (06:50→19:43)
--- NOTE | 2018-11-15 08:23 | PCM.NOTE ---
Date and Time: 11/15/18816 Subjective Assessment: Pt would like to go home today. Feels her breathing is better. Has been up to restroom by herself. Feeling sleepy at some points throughout the day but doesn't want her pain med or anxiety med decreased. Objective Exam General Appearance: no apparent distress, alert, anxiety Neurologic Exam: oriented x 3, cooperative Skin Exam: normal color, warm, dry, No rash Ears, Nose, Throat Exam: moist mucous membranes Neck Exam: normal inspection Respiratory Exam: diminished breath sounds (good air exchange), prolonged expirations, No crackles/rales, No rhonchi, No wheezing Cardiovascular Exam: regular rate/rhythm, normal heart sounds, No murmur Extremity Exam: normal inspection, No pedal edema, No swelling Back Exam: normal inspection, No rash OBJECTIVE DATA Vital Signs: Vital Signs - 24 hr Temp Pulse Resp BP Pulse Ox 11/15/18 08:00 22 11/15/18 06:53 64 22 97 11/15/18 04:20 98.8 F 62 20 133/66 20 L 11/15/18 04:00 20 11/15/18 02:55 70 16 95 11/15/18 00:08 98.2 F 72 20 145/77 97 11/15/18 00:00 25 H 11/14/18 23:21 65 25 H 97 11/14/18 20:00 98.1 F 61 22 169/77 98 11/14/18 19:12 61 22 98 11/14/18 16:37 97.9 F 86 22 194/89 90 L 11/14/18 16:00 22 11/14/18 14:34 65 22 95 11/14/18 12:16 97.8 F 90 20 166/80 95 11/14/18 12:13 71 20 11/14/18 12:00 20 11/14/18 08:35 74 20 95 Oxygen-Last 24 hours O2 Percentage 6 Liters = 44% O2 Percentage 6 Liters = 44% O2 Percentage 6 Liters = 44% Oxygen Flowrate (L/min)-RT 30 Oxygen Flowrate (L/min)-RT 30 Oxygen Flowrate (L/min)-RT 30 Pain Assessment - Last Documented Pain Intensity 5 Pain Scale Used 0-10 Pain Scale Intake and Output: Intake & Output 05/1311/13/18 11/14/18 11/15/18 11:59 11:59 11:59 11:59 Intake Total 2775 6339 2971 5952 Output Total 6829 0597 6507 4910 Balance 426 -5619 -3740 -8605 Weight 89.9 kg 89.2 kg 89.6 kg Lab Results: Accuchecks Date 11/14/18 Date 11/14/18 Time 11:46 Accucheck Value: 329 Accucheck Value: 495 Lab Results-Last 24 Hours 11/14/18 11/14/18 Range/Units 10:55 15:55 Glucose 604 H* 495 H (74-106) mg/dL Radiology Exams: Radiology Procedures Category Date Time Status CHEST 1 VIEW (PORTABLE) Routine Exams 11/13/18 08:00 Completed Assessment/Plan (1) Pneumonia Current Visit: Yes Status: Acute Qualifiers: Pneumonia type: due to unspecified organism Laterality: bilateral Lung location: unspecified part of lung Qualified Code(s): J18.9 - Pneumonia, unspecified organism Assessment & Plan: On Levaquin day #4, doing better, will decrease steroid to po prednisone 60mg today. Code(s): J18.9 - PNEUMONIA, UNSPECIFIED ORGANISM (2) Anxiety Current Visit: No Status: Chronic Assessment & Plan: Would like to decrease her BZD but with her extreme anxiety centered around needles and procedures, will hold off for now Code(s): F41.9 - ANXIETY DISORDER, UNSPECIFIED (3) Hypertension Current Visit: No Status: Chronic Qualifiers: Hypertension type: essential hypertension Qualified Code(s): I10 - Essential (primary) hypertension Assessment & Plan: systolic BP from 133-195. will continue to observe. Code(s): I10 - ESSENTIAL (PRIMARY) HYPERTENSION (4) CHF (congestive heart failure) Current Visit: Yes Status: Acute Qualifiers: Heart failure type: unspecified Heart failure chronicity: unspecified Qualified Code(s): I50.9 - Heart failure, unspecified Assessment & Plan: on bumex, doing well. Code(s): I50.9 - HEART FAILURE, UNSPECIFIED
[2018-11-15] MEDS ORDERED: NovoLOG Insulin SQ SCH (09:00)
[2018-11-15] MEDS: NovoLOG Insulin SQ PRN ×2 (09:06→17:13)
[2018-11-15] MEDS: Levofloxacin 500MG/100ML D5W 500 MG/100 ML BAG IV SCH (10:15)
[2018-11-15] MEDS: Apresoline 25 MG TABLET PO SCH ×3 (10:18→22:04)
[2018-11-15] MEDS: Klonopin 0.5 MG PO PRN (10:18)
[2018-11-15] MEDS: Norco 10/325 MG Tablet PO PRN (10:18)
[2018-11-15] MEDS: ECOTRIN 81 MG PO SCH (10:19)
[2018-11-15] MEDS: Cyclobenzaprine 10 MG PO SCH ×2 (10:20→22:05)
[2018-11-15] MEDS: Klor Con 10 MEQ PO SCH ×2 (10:21→22:05)
[2018-11-15] MEDS: Toprol Xl 50 MG PO SCH (10:21)
[2018-11-15] MEDS: NEURONTIN 300 MG PO SCH ×3 (10:21→22:05)
[2018-11-15] MEDS: Prozac 20 MG PO SCH (10:22)
[2018-11-15] MEDS: DELTASONE 20 MG PO SCH (10:22)
[2018-11-15] MEDS: Cozaar 50 MG PO SCH (10:23)
[2018-11-15] MEDS: CLARITIN 10 MG PO SCH (10:23)
[2018-11-15] MEDS: BUMEX 1 MG IV SCH ×2 (10:24→22:05)
[2018-11-15] MEDS: Flonase NASAL NS SCH (10:24)
[2018-11-15] MEDS: Lantus Insulin SQ SCH (10:25)
[2018-11-15] MEDS: Patanol 1% OPHTHALMIC OP SCH ×2 (10:26→22:06)
[2018-11-15] MEDS: TOPIRAMATE PO SCH ×2 (10:28→22:07)
[2018-11-15] MEDS: NICODERM CQ 14 MG TOP SCH (10:28)
[2018-11-15] MEDS ORDERED: NovoLOG Insulin SQ ONE ×2 (10:42→12:23)
[2018-11-15] MEDS ORDERED: Lantus Insulin SQ ONE (16:02)
[2018-11-15] MEDS: DESYREL 50 MG PO SCH (22:05)
[2018-11-15] MEDS: ENOXAPARIN SODIUM SQ SCH (22:05)
[2018-11-15] MEDS: Seroquel 100 MG PO SCH (22:06)
[2018-11-15] MEDS: ZOCOR 20MG PO SCH (22:07)
[2018-11-16] MEDS: DUONEB 0.5-3 MG/3 ml Neb IH SCH ×4 (03:29→14:14)
[2018-11-16] MEDS: Norco 10/325 MG Tablet PO PRN ×2 (04:59→15:01)
[2018-11-16] MEDS: Klonopin 0.5 MG PO PRN (05:00)
[2018-11-16] MEDS: MARY'S MOUTHWASH PO SCH ×2 (05:53→11:35)
[2018-11-16] MEDS: Advair Hfa 115/21 Common canister IH SCH (06:39)
[2018-11-16] MEDS: NovoLOG Insulin SQ PRN ×2 (07:37→11:04)
--- NOTE | 2018-11-16 09:13 | PCM.DS ---
Discharge Summary Date of Admission: 11/11/18 07:02 Admitting Physician: SHERIF JACKSON Consults: Consults on Case 11/12/18 08:56 Consult Pulmonology ROUTINE Primary Care Provider: SHERIF JACKSON Allergies Allergies lisinopril Allergy (Verified 08/07/18 19:14) Hospital Summary - Hospital Course Hospital Course: Pt is 58 yo female pt of mine from [facility] with COPD, HTN, DM II, and anxiety who was admitted through ER with COPD exacerbation. She had been admitted from office overnight and improved, but over the next 6 hours her respiratory status declined and she came to the ER. She was dx with pneumonia and COPD exacerbation per CXR (CT neg for PE), put on IV rocephin and zithromax and steroid. She started requiring more O2, was on bipap for several days ( required IV lorazepam while on bipap due to anxiety). She was changed to IV levaquin, pulmonology was consulted and Dr. Short added IV bumex. She improved quite steadily after that; has been on high flow oxygen for several days and now is on 2L O2 per [place]. Will send pt home on po levaquin, prednisone, albuterol prn. Echocardiogram is pending. Pt had to have PICC line for poor IV access. She had some very elevated BS yesterday into the 500s. Was treated several times with SQ novolog. BS have been 228 to 428 since then. - Vitals & Intake/Output Vital Signs: Vital Signs Temperature 97.8 F 11/16/18 07:21 Pulse Rate 71 11/16/18 07:21 Respiratory Rate 18 11/16/18 07:38 Blood Pressure 98/52 11/16/18 07:21 O2 Sat by Pulse Oximetry 94 L 11/16/18 07:21 Oxygen-Last Documented O2 Percentage 3 Liters = 32% Intake & Output: Intake & Output 11/13/18 11/14/18 11/15/18 11/16/18 11:59 11:59 11:59 11:59 Intake Total 1710 1640 2360 1200 Output Total 3500 3750 2020926 3185 Balance -4476 -9394 -9682 -1372 Weight 89.2 kg 89.6 kg 81.6 kg 81.4 kg - Lab Result Diagrams: 11/12/18 09:45 11/12/18 09:45 Lab Results-Last 24 Hrs: Accuchecks Date 11/16/18 Date 11/15/18 Date 11/15/18 Date 11/15/18 Date 11/15/18 Time 07:37 Time 16:30 Time 13:30 Time 11:35 Time 11:20 Accucheck Value: 341 Accucheck Value: 401 Accucheck Value: 288 Accucheck Value: 428 Accucheck Value: 532 Accucheck Value: 533 Lab Results-Last 24 Hours 11/15/18 Range/Units 11:55 Glucose 575 H* (74-106) mg/dL Micro Results-Entire Visit: Accuchecks Date 11/16/18 Date 11/15/18 Date 11/15/18 Date 11/15/18 Date 11/15/18 Time 07:37 Time 16:30 Time 13:30 Time 11:35 Time 11:20 Accucheck Value: 341 Accucheck Value: 401 Accucheck Value: 288 Accucheck Value: 428 Accucheck Value: 532 Accucheck Value: 533 - Procedures and Test Procedures and Tests throughout Hospitalization: Therapy Orders & Screens 11/10/18 03:09 Peak Expiratory Flow Rate ONCE Comment: Reason For Exam: 11/10/18 03:31 Respiratory Therapy Assessment DAILY Comment: 11/10/18 05:37 Respiratory Therapy Assessment DAILY Comment: Diagnosis: PNEUMONIA 11/10/18 09:00 Smoking Cessation Education ONCE Comment: Diagnosis: pneumonia Smoking Status: Current every day smoker How long have you smoked: 45 years Have you smoked in the past 12 months: Yes Approximately how many cigarettes per day: 20 Do you dip or chew tobacco: No 11/10/18 09:23 Oxygen Nasal Cannula 2 lpm Comment: Diagnosis: pneumonia 11/10/18 09:24 Respiratory Therapy Assessment DAILY Comment: Diagnosis: pneumonia 11/11/18 07:02 Peak Expiratory Flow Rate ONCE Comment: Reason For Exam: Diagnosis: pneumonia 11/11/18 11:15 BiPap/CPAP ROUTINE Comment: Diagnosis: HYPOXIA, PNEUMONIA, ACUTE EXACERBATION COPD, ANXIETY 11/12/18 08:13 EKG STAT Comment: Diagnosis: HYPOXIA, PNEUMONIA, ACUTE EXACERBATION COPD, ANXIETY 11/13/18 06:15 Oxygen High Flow per RT 50% Comment: Diagnosis: HYPOXIA, PNEUMONIA, ACUTE EXACERBATION COPD, ANXIETY Discharge Exam General Appearance: no apparent distress, alert, other (sitting up in chair eating breakfast) Neurologic Exam: oriented x 3, cooperative Eye Exam: eyes nml inspection Ears, Nose, Throat Exam: moist mucous membranes Neck Exam: normal inspection Respiratory Exam: lungs clear, diminished breath sounds, No crackles/rales, No rhonchi, No wheezing Cardiovascular Exam: regular rate/rhythm, normal heart sounds, No murmur Gastrointestinal/Abdomen Exam: soft, normal bowel sounds, No tenderness Back Exam: normal inspection, No rash Extremity Exam: normal inspection, No pedal edema, No swelling Skin Exam: normal color, warm, dry, No rash Final Diagnosis/Problem List - Final Discharge Diagnosis/Problem (1) Pneumonia Current Visit: Yes Status: Acute Assessment & Plan: much improved. Home to finish 14d of levaquin. Will keep PICC in place until she is done being treated and follows up with me in office. Code(s): J18.9 - PNEUMONIA, UNSPECIFIED ORGANISM (2) Anxiety Current Visit: No Status: Chronic Assessment & Plan: Much better off the bipap. No lorazepam since 11/13/18. Not sending pt home on any BZD. Code(s): F41.9 - ANXIETY DISORDER, UNSPECIFIED (3) Hypertension Current Visit: No Status: Chronic Code(s): I10 - ESSENTIAL (PRIMARY) HYPERTENSION (4) CHF (congestive heart failure) Current Visit: Yes Status: Chronic Assessment & Plan: echo pending Code(s): I50.9 - HEART FAILURE, UNSPECIFIED (5) Hypoxemia Current Visit: Yes Status: Acute Assessment & Plan: home on O2, I have advised stay on it continuously while still ill then may just need prn. Code(s): R09.02 - HYPOXEMIA (6) Diabetes Current Visit: No Status: Chronic Assessment & Plan: BS are better off the IV steroids - I anticipate they will continue to decrease as po prednisone is decreased. Code(s): E11.9 - TYPE 2 DIABETES MELLITUS WITHOUT COMPLICATIONS (7) COPD (chronic obstructive pulmonary disease) Current Visit: Yes Status: Chronic - Discharge Disposition: Home, Self-Care Condition: Stable Prescriptions: New Prednisone 20 mg [Deltasone 20 mg] 20 mg PO DAILY #17 tablet Levofloxacin [Levaquin] 500 mg PO DAILY #9 tablet Nystatin/TCN/Hc/Diphenhydramin [Wendy's Mouthwash] 5 ml PO Q6H bottle Olopatadine HCl Ophth [Patanol 1% OPHTHALMIC] 0.25 ml OP BID PRN #1 bottle PRN Reason: Allergies Continue Fluticasone/Vilanterol [Breo Ellipta 100-25 Mcg INH] 1 each IH DAILY Fluticasone Propionate [Flonase NASAL] 1 spray NS DAILY Quetiapine Fumarate [Seroquel] 150 mg PO HS Nortriptyline HCl [Pamelor] 25 mg PO HS Metformin HCl [Glucophage] 1,000 mg PO BID Gabapentin [Neurontin] 900 mg PO TID Trazodone HCl [Desyrel] 100 mg PO HS Hydrocodone/APAP 10/325 mg [[place] 10/325 MG Tablet] 10 - 325 mg PO QID PRN PRN Reason: Pain Potassium Chloride 10 Meq Tab* [Klor Con 10 MEQ] 20 meq PO BID Cyclobenzaprine HCl 10 mg [Cyclobenzaprine 10 MG] 5 mg PO BID Prednisone 20 mg [Deltasone 20 mg] 10 mg PO DAILY Hydralazine HCl 100 mg PO TID Fluoxetine HCl 10 mg [Prozac 10 mg] 40 mg PO DAILY Sumatriptan Succinate [Imitrex] 100 mg PO DAILY PRN PRN PRN Reason: Headache Atorvastatin Calcium 40 mg PO DAILY Ergocalciferol (Vitamin D2) [Vitamin D2] 50,000 unit PO WEEKLY Loratadine [Allergy] 10 mg PO DAILY Albuterol Sulfate 2.5 mg IH TID PRN PRN Reason: Shortness Of Breath Aspirin EC 81 mg [Ecotrin 81 mg] 81 mg PO DAILY Losartan Potassium 50 mg [Cozaar 50 MG] 50 mg PO DAILY Promethazine HCl 25 mg [Phenergan 25 mg] 25 mg PO Q12H PRN PRN PRN Reason: nausea Naloxegol Oxalate [Movantik] 25 mg PO DAILY Albuterol 8 gm Mdi Hfa [Ventolin Hfa MDI] 108 mcg IH Q6HPRN PRN PRN Reason: Shortness Of Breath Metoprolol Succinate 50 mg [Toprol Xl 50 MG] 50 mg PO DAILY Topiramate 25 mg [Topamax 25 MG] 50 mg PO BID Instructions: Asthma, Adult (DC) Follow up with: SHERIF JACKSON [Primary Care Provider] - 1 Week
[2018-11-16] MEDS: Levofloxacin 500MG/100ML D5W 500 MG/100 ML BAG IV SCH (09:28)
[2018-11-16] MEDS: Cyclobenzaprine 10 MG PO SCH (09:28)
[2018-11-16] MEDS: Flonase NASAL NS SCH (09:29)
[2018-11-16] MEDS: Prozac 20 MG PO SCH (09:29)
[2018-11-16] MEDS: ECOTRIN 81 MG PO SCH (09:29)
[2018-11-16] MEDS: NEURONTIN 300 MG PO SCH ×2 (09:29→14:26)
[2018-11-16] MEDS: CLARITIN 10 MG PO SCH (09:30)
[2018-11-16] MEDS: BUMEX 1 MG IV SCH (09:31)
[2018-11-16] MEDS: Cozaar 50 MG PO SCH (09:31)
[2018-11-16] MEDS: Lantus Insulin SQ SCH (09:31)
[2018-11-16] MEDS: Patanol 1% OPHTHALMIC OP SCH (09:31)
[2018-11-16] MEDS: Apresoline 25 MG TABLET PO SCH ×2 (09:31→14:30)
[2018-11-16] MEDS: Toprol Xl 50 MG PO SCH (09:33)
[2018-11-16] MEDS: Klor Con 10 MEQ PO SCH (09:34)
[2018-11-16] MEDS: NICODERM CQ 14 MG TOP SCH (09:44)
[2018-11-16] MEDS: DELTASONE 20 MG PO SCH (09:44)
[2018-11-16] MEDS: TOPIRAMATE PO SCH (09:44)
[2018-11-16 11:10] VITALS: BP 104/71
[2018-11-16 14:18] VITALS: PULSE 71; O2SAT 97
== END 2018-11-16 15:58 | disposition home or self-care (01) | DRG 193 ==
LOC: ED 02:38 → MED SURG 06:31 → OBSVTOIN 11-11 07:02
PROVIDERS: ADMIT Family Medicine; ATTEND Family Medicine
DX: J18.9 Pneumonia, unspecified organism (principal); J96.21 Acute and chronic respiratory failure with hypoxia; J44.1 Chronic obstructive pulmonary disease with (acute) exacerbation; I10 Essential (primary) hypertension; E11.9 Type 2 diabetes mellitus without complications; F41.9 Anxiety disorder, unspecified; I50.9 Heart failure, unspecified; D64.9 Anemia, unspecified; G47.30 Sleep apnea, unspecified; Z79.899 Other long term (current) drug therapy; F17.200 Nicotine dependence, unspecified, uncomplicated; Z86.73 Personal history of transient ischemic attack (TIA), and cerebral infarction without residual deficits
CPT/HCPCS: 36000; 36415; 36600; 71045; 71046; 71260; 80053; 81001; 82375; 82803; 82805; 82947; 82962; 83036; 83735; 83880; 84484; 85025; 85379; 85610; 87631; 87651; 93005; 93268; 94002; 94003; 94150; 94640; 94667; 94760; 94762; 96360; 96365; 96367; 96374; 99285; J0456; J0696; J1650; J1956; J2060; J2920; J2930; J7609; A9270-GY; G0378

== ENCOUNTER 2018-11-25 01:18 | Observation (INO) | payer OTHER ==
[2018-11-25] MEDS ORDERED: DUONEB 0.5-3 MG/3 ml Neb IH ONE ×2 (01:28→01:43)
[2018-11-25] MEDS ORDERED: solu-MEDROL 125 MG IV ONE (01:28)
[2018-11-25] MEDS ORDERED: ROCEPHIN 1 Gm-D5w 50 ml Bag** 1 G/50 ML IVPB IV STA (01:28)
--- NOTE | 2018-11-25 01:28 | ERPHSYRPT ---
- History of Present Illness Time Seen by Provider: 11/25/18 01:25 Source: patient Exam Limitations: no limitations Physician History: pt is short of breath again after recent DC for same in hosp here; known COPD and just went off steroids today Timing/Duration: today Severity of Dyspnea-Max: moderate Severity of Dyspnea-Current: moderate Possible Cause: frequent episodes Associated Symptoms: cough Allergies/Adverse Reactions: lisinopril Allergy (Verified 08/07/18 19:14) Home Medications: Fluticasone/Vilanterol [Breo Ellipta 100-25 Mcg INH] 1 each IH DAILY 03/09/16 [ History] Fluticasone Propionate [Flonase NASAL] 1 spray NS DAILY 03/13/16 [History] Gabapentin [Neurontin] 900 mg PO TID 09/29/16 [History] Metformin HCl [Glucophage] 1,000 mg PO BID 09/29/16 [History] Nortriptyline HCl [Pamelor] 25 mg PO HS 09/29/16 [History] Quetiapine Fumarate [Seroquel] 150 mg PO HS 09/29/16 [History] Trazodone HCl [Desyrel] 100 mg PO HS 09/29/16 [History] Hydrocodone/APAP 10/325 mg [[place] 10/325 MG Tablet] 10 - 325 mg PO QID PRN 11/04/16 [History] Potassium Chloride 10 Meq Tab* [Klor Con 10 MEQ] 20 meq PO BID 08/29/17 [ History] Cyclobenzaprine HCl 10 mg [Cyclobenzaprine 10 MG] 5 mg PO BID 02/20/18 [ History] Hydralazine HCl 100 mg PO TID 02/20/18 [History] Prednisone 20 mg [Deltasone 20 mg] 10 mg PO DAILY 02/20/18 [History] Albuterol 8 gm Mdi Hfa [Ventolin Hfa MDI] 108 mcg IH Q6HPRN PRN 11/07/18 [ History] Albuterol Sulfate 2.5 mg IH TID PRN 11/07/18 [History] Aspirin EC 81 mg [Ecotrin 81 mg] 81 mg PO DAILY 11/07/18 [History] Atorvastatin Calcium 40 mg PO DAILY 11/07/18 [History] Ergocalciferol (Vitamin D2) [Vitamin D2] 50,000 unit PO WEEKLY 11/07/18 [History ] Loratadine [Allergy] 10 mg PO DAILY 11/07/18 [History] Losartan Potassium 50 mg [Cozaar 50 MG] 50 mg PO DAILY 11/07/18 [History] Metoprolol Succinate 50 mg [Toprol Xl 50 MG] 50 mg PO DAILY 11/07/18 [ History] Naloxegol Oxalate [Movantik] 25 mg PO DAILY 11/07/18 [History] Promethazine HCl 25 mg [Phenergan 25 mg] 25 mg PO Q12H PRN PRN 11/07/18 [ History] Sumatriptan Succinate [Imitrex] 100 mg PO DAILY PRN PRN 11/07/18 [History] Topiramate 25 mg [Topamax 25 MG] 50 mg PO BID 11/07/18 [History] Venlafaxine HCl [Effexor] 75 mg PO DAILY 11/25/18 [History] Hx Tetanus, Diphtheria Vaccination/Date Given: Yes Hx Influenza Vaccination/Date Given: Yes Hx Pneumococcal Vaccination/Date Given: Yes - Review of Systems Constitutional: No Fever, No Chills Eyes: No Symptoms Ears, Nose, & Throat: No Symptoms Respiratory: No Cough, No Dyspnea Cardiac: No Chest Pain, No Edema, No Syncope Abdominal/Gastrointestinal: No Abdominal Pain, No Nausea, No Vomiting, No Diarrhea Genitourinary Symptoms: No Dysuria Musculoskeletal: No Back Pain, No Neck Pain Skin: No Rash Neurological: No Dizziness, No Focal Weakness, No Sensory Changes Psychological: No Symptoms Endocrine: No Symptoms Hematologic/Lymphatic: No Symptoms Immunological/Allergic: No Symptoms All Other Systems: Reviewed and Negative - Past Medical History Pertinent Past Medical History: Yes Neurological History: Migraines, TIA ENT History: No Pertinent History Cardiac History: Hypertension Respiratory History: COPD, Sleep Apnea Endocrine Medical History: Diabetes Type II Musculoskeletal History: Osteoarthritis GI Medical History: No Pertinent History History: No Pertinent History Psycho-Social History: Anxiety, Depression Female Reproductive Disorders: No Pertinent History Other Medical History: depression, anxiety - Past Surgical History Past Surgical History: Yes Neuro Surgical History: No Pertinent History Cardiac: No Pertinent History Respiratory: No Pertinent History Gastrointestinal: Cholecystectomy Genitourinary: No Pertinent History Musculoskeletal: No Pertinent History Female Surgical History: Section Other Surgical History: colonoscopy - Social History Smoking Status: Current every day smoker How long have you smoked: 45 years Exposure to second hand smoke: Yes Drug Use: none Patient Lives Alone: No - Nursing Vital Signs Nursing Vital Signs: Initial Vital Signs Temperature 97.6 F 11/25/18 01:20 Pulse Rate 74 11/25/18 01:20 Respiratory Rate 24 11/25/18 01:20 Blood Pressure 93/67 11/25/18 01:20 O2 Sat by Pulse Oximetry 97 11/25/18 01:20 Pain Scale Pain Intensity 0 - Physical Exam General Appearance: no apparent distress, alert Eye Exam: PERRL/EOMI Neck Exam: normal inspection, supple Respiratory Exam: airway intact, rhonchi Cardiovascular/Chest Exam: normal heart sounds, regular rate/rhythm Abdominal/Gastrointestinal Exam: soft, No tenderness, No distention, No mass Extremity Exam: non-tender, normal range of motion, normal inspection, no calf tenderness, no pedal edema Peripheral Pulses Exam: carotid (R): 2+, carotid (L): 2+, femoral (R): 2+, femoral (L): 2+, dorsalis-pedis (R): 2+, dorsalis-pedis (L): 2+ Neurologic Exam: alert, oriented x 3, cooperative, dry mop maker II-XII nml as tested, sensation nml, No motor deficits Skin Exam: normal color, warm, No dry SpO2 Interpretation: borderline oxygenation O2 Delivery: Nasal Cannula - Course Nursing assessment & vital signs reviewed: Yes EKG Interpreted by Me: Sinus Rhythm, NORMAL AXIS, Non-specific ST Changes - Radiology Exams Chest X-ray Interpretation: Reviewed by me, Infiltrates Ordered Tests: Active Orders 24 hr Category Date Time Status [employer] Engineer STAT Care 11/25/18 01:29 Active EKG-ER Only STAT Care 11/25/18 01:28 Active IV Insertion STAT Care 11/25/18 01:28 Active Pulse Oximetry (ED) STAT Care 11/25/18 01:28 Active CHEST 1 VIEW (PORTABLE) Stat Exams 11/25/18 01:28 Taken CBC W DIFF Stat Lab 11/25/18 02:21 Completed CMP Stat Lab 11/25/18 02:21 Completed D-DIMER QUANTITATION Stat Lab 11/25/18 02:21 Completed Lactic Acid Stat Lab 11/25/18 01:55 Results NT PRO BNP Stat Lab 11/25/18 02:21 Completed TROPONIN Q3H Lab 11/25/18 02:21 Completed TROPONIN Q3H Lab 11/25/18 04:30 Ordered TROPONIN Q3H Lab 11/25/18 07:30 Ordered TROPONIN Q3H Lab 11/25/18 10:30 Ordered TROPONIN Q3H Lab 11/25/18 13:30 Ordered UA W/RFX UR CULTURE Stat Lab 11/25/18 01:28 Uncollected Respiratory Therapy Assessment DAILY RT 11/25/18 01:46 Completed Medication Summary Generic Name Dose Route Start Last Admin Trade Name Freq PRN Reason Stop Dose Admin Sodium Chloride 1,000 mls @ 50 mls/hr 11/25/18 01:30 11/25/18 02:39 Sodium Chloride 0.9% 1000 Ml IV 12/25/18 01:29 50 mls/hr .Q20H IVAN Administration Discontinued Medications Generic Name Dose Route Start Last Admin Trade Name Freq PRN Reason Stop Dose Admin Albuterol/Ipratropium 3 ml 11/25/18 01:28 11/25/18 01:44 Duoneb 0.5-3 Mg/3 Ml Neb IH 11/25/18 01:29 3 ml STAT ONE Administration Albuterol/Ipratropium Confirm 11/25/18 01:43 Duoneb 0.5-3 Mg/3 Ml Neb Administered 11/25/18 01:44 Dose 3 ml IH .STK-MED ONE Ceftriaxone Sodium/Dextrose 1 g in 50 mls @ 100 mls/hr 11/25/18 01:28 02:36 Rocephin 1 Gm-D5w 50 Ml Bag IV 11/25/18 01:57 100 mls/hr STAT STA 100 mls/hr Administration Ceftriaxone Sodium/Dextrose Confirm 11/25/18 02:26 Rocephin 1 Gm-D5w 50 Ml Bag Administered 11/25/18 02:27 Dose 1 g in 50 mls @ ud IV .STK-MED ONE Methylprednisolone Sodium Succinate 80 mg 11/25/18 01:28 11/25/18 02:39 Solu-Medrol 125 Mg IV 11/25/18 01:29 80 mg STAT ONE Administration Methylprednisolone Sodium Succinate Confirm 11/25/18 02:26 Solu-Medrol 125 Mg Administered 11/25/18 02:27 Dose 125 mg .ROUTE .STK-MED ONE Lab/Rad Data: Laboratory Result Diagrams 11/25/18 02:21 11/25/18 02:21 Laboratory Results 11/25/18 11/25/18 11/25/18 Range/Units 02:21 02:21 02:21 WBC (4.0-10.5) K/mm3 RBC (4.1-5.4) M/mm3 Hgb (12.0-16.0) gm/dl Hct (35-47) % MCV (78-100) fl MCH (26-32) pg MCHC (32-36) g/dl RDW (11.5-14.0) % Plt Count (150-450) K/mm3 MPV (6-9.5) fl Gran % (36.0-66.0) % Eos # (Auto) (0-0.5) Absolute Lymphs (auto) (1.0-4.6) Absolute Monos (auto) (0.0-1.3) Lymphocytes % (24.0-44.0) % Monocytes % (0.0-12.0) % Eosinophils % (0.00-5.0) % Basophils % (0.0-0.4) % Absolute Granulocytes (1.4-6.9) Basophils # (0-0.4) D-Dimer (215-500) ng/mL Sodium (137-145) mmol/L Potassium (3.5-5.1) mmol/L Chloride (98-107) mmol/L Carbon Dioxide (22-30) mmol/L Anion Gap (5-15) MEQ/L BUN (7-17) mg/dL Creatinine (0.52-1.04) mg/dL Estimated GFR ML/MIN Glucose (74-106) mg/dL Lactic Acid (0.4-2.0) Calcium (8.4-10.2) mg/dL Total Bilirubin (0.2-1.3) mg/dL AST (14-36) U/L ALT (0-35) U/L Alkaline Phosphatase (38-126) U/L Troponin I < 0.012 (0.000-0.034) ng/mL NT-Pro-B Natriuret Pep (0-900) pg/mL Serum Total Protein (6.3-8.2) g/dL Albumin (3.5-5.0) g/dL Influenza Type A Ag NEGATIVE (NEGATIVE) Influenza Type B Ag NEGATIVE (NEGATIVE) RSV (PCR) NEGATIVE (Negative) Group A Strep Antibody NEGATIVE (NEGATIVE) 11/25/18 11/25/18 11/25/18 Range/Units 02:21 02:21 02:21 WBC 13.4 H (4.0-10.5) K/mm3 RBC 3.57 L (4.1-5.4) M/mm3 Hgb 10.0 L (12.0-16.0) gm/dl Hct 32.1 L (35-47) % MCV 89.9 (78-100) fl MCH 28.0 (26-32) pg MCHC 31.2 L (32-36) g/dl RDW 18.1 H (11.5-14.0) % Plt Count 243 (150-450) K/mm3 MPV 10.9 H (6-9.5) fl Gran % 80.3 H (36.0-66.0) % Eos # (Auto) 0.05 (0-0.5) Absolute Lymphs (auto) 1.91 (1.0-4.6) Absolute Monos (auto) 0.67 (0.0-1.3) Lymphocytes % 14.2 L (24.0-44.0) % Monocytes % 5.0 (0.0-12.0) % Eosinophils % 0.4 (0.00-5.0) % Basophils % 0.1 (0.0-0.4) % Absolute Granulocytes 10.80 H (1.4-6.9) Basophils # 0.01 (0-0.4) D-Dimer 473 (215-500) ng/mL Sodium 138 (137-145) mmol/L Potassium 3.8 (3.5-5.1) mmol/L Chloride 108 H (98-107) mmol/L Carbon Dioxide 18 L (22-30) mmol/L Anion Gap 16.6 H (5-15) MEQ/L BUN 24 H (7-17) mg/dL Creatinine 0.87 (0.52-1.04) mg/dL Estimated GFR > 60.0 ML/MIN Glucose 145 H (74-106) mg/dL Lactic Acid (0.4-2.0) Calcium 8.9 (8.4-10.2) mg/dL Total Bilirubin 0.60 (0.2-1.3) mg/dL AST 32 (14-36) U/L ALT 46 H (0-35) U/L Alkaline Phosphatase 83 (38-126) U/L Troponin I (0.000-0.034) ng/mL NT-Pro-B Natriuret Pep 469 (0-900) pg/mL Serum Total Protein 6.4 (6.3-8.2) g/dL Albumin 3.7 (3.5-5.0) g/dL Influenza Type A Ag (NEGATIVE) Influenza Type B Ag (NEGATIVE) RSV (PCR) (Negative) Group A Strep Antibody (NEGATIVE) 11/25/18 Range/Units 01:55 WBC (4.0-10.5) K/mm3 RBC (4.1-5.4) M/mm3 Hgb (12.0-16.0) gm/dl Hct (35-47) % MCV (78-100) fl MCH (26-32) pg MCHC (32-36) g/dl RDW (11.5-14.0) % Plt Count (150-450) K/mm3 MPV (6-9.5) fl Gran % (36.0-66.0) % Eos # (Auto) (0-0.5) Absolute Lymphs (auto) (1.0-4.6) Absolute Monos (auto) (0.0-1.3) Lymphocytes % (24.0-44.0) % Monocytes % (0.0-12.0) % Eosinophils % (0.00-5.0) % Basophils % (0.0-0.4) % Absolute Granulocytes (1.4-6.9) Basophils # (0-0.4) D-Dimer (215-500) ng/mL Sodium (137-145) mmol/L Potassium (3.5-5.1) mmol/L Chloride (98-107) mmol/L Carbon Dioxide (22-30) mmol/L Anion Gap (5-15) MEQ/L BUN (7-17) mg/dL Creatinine (0.52-1.04) mg/dL Estimated GFR ML/MIN Glucose (74-106) mg/dL Lactic Acid 3.3 H (0.4-2.0) Calcium (8.4-10.2) mg/dL Total Bilirubin (0.2-1.3) mg/dL AST (14-36) U/L ALT (0-35) U/L Alkaline Phosphatase (38-126) U/L Troponin I (0.000-0.034) ng/mL NT-Pro-B Natriuret Pep (0-900) pg/mL Serum Total Protein (6.3-8.2) g/dL Albumin (3.5-5.0) g/dL Influenza Type A Ag (NEGATIVE) Influenza Type B Ag (NEGATIVE) RSV (PCR) (Negative) Group A Strep Antibody (NEGATIVE) - Progress Progress: improved, re-examined Air Movement: good Progress Note: 11/25/18 03:07 discussed with pt and Dr Oglesby and family and will place pt back in for obs and resume steroids and antibiotics Blood Culture(s) Obtained: No Antibiotics given: Yes Discussed with : Reny Will see patient in: hospital (observation) Counseled pt/family regarding: lab results, diagnosis, need for follow-up, rad results - Departure Departure Disposition: Observation Clinical Impression: COPD with exacerbation Condition: Good Critical Care Time: No Referrals: SHERIF JACKSON [Primary Care Provider] -
[2018-11-25] MEDS ORDERED: Sodium Chloride 0.9% 1000 ML 1,000 ML IV SCH (01:30)
[2018-11-25 02:03] LABS: Lactic Acid 3.3 (0.4-2.0)
[2018-11-25] MEDS ORDERED: Sodium Chloride 0.9% 1000 ML 1,000 ML ONE (02:26)
[2018-11-25] MEDS ORDERED: ROCEPHIN 1 Gm-D5w 50 ml Bag** 1 G/50 ML IVPB IV ONE (02:26)
[2018-11-25] MEDS ORDERED: solu-MEDROL 125 MG ONE (02:26)
[2018-11-25 02:28] LABS: BASOPHIL % 0.1 % (0.0-0.4); Basophil (Absolute #) 0.01 (0-0.4); Eosinophil % 0.4 % (0.00-5.0); Eosinophil (Absolute #) 0.05 (0-0.5); Granulocytes % 80.3 % (36.0-66.0); Hematocrit 32.1 % (35-47); Lymphocyte (Absolute #) 1.91 (1.0-4.6); Lymphocytes % 14.2 % (24.0-44.0); Mean Cell Volume 89.9 fl (78-100); Mean Corpuscular Hgb Concent. 31.2 g/dl (32-36); Mean Platelet Volume 10.9 fl (6-9.5); Monocyte (Absolute #) 0.67 (0.0-1.3); Platelet Count 243 K/mm3 (150-450); Red Blood Count 3.57 M/mm3 (4.1-5.4); Red Cell Distribution Width 18.1 % (11.5-14.0); White Blood Count 13.4 K/mm3 (4.0-10.5)
[2018-11-25 02:53] LABS: ALBUMIN 3.7 g/dL (3.5-5.0); ALKALINE PHOSPHATASE 83 U/L (38-126); ANION GAP 16.6 MEQ/L (5-15); BLOOD UREA NITROGEN 24 mg/dL (7-17); CHLORIDE 108 mmol/L (98-107); Calcium 8.9 mg/dL (8.4-10.2); Carbon Dioxide 18 mmol/L (22-30); Creatinine 1 0.87 mg/dL (0.52-1.04); Glucose 145 mg/dL (74-106); NT PRO BNP 469 pg/mL (0-900); Potassium 3.8 mmol/L (3.5-5.1); SGOT/AST 32 U/L (14-36); SGPT/ALT 46 U/L (0-35); SODIUM 138 mmol/L (137-145); Total Protein 6.4 g/dL (6.3-8.2)
[2018-11-25 03:05] LABS: INFLUENZA A NEGATIVE (NEGATIVE); INFLUENZA B NEGATIVE (NEGATIVE); RESPIRATORY SYNCTIAL VIRUS NEGATIVE (Negative)
[2018-11-25] MEDS ORDERED: solu-MEDROL 125 MG IV SCH (05:24)
[2018-11-25] MEDS ORDERED: Zofran 4 MG/2 ML VIAL IV PRN (05:24)
[2018-11-25] MEDS ORDERED: DUONEB 0.5-3 MG/3 ml Neb IH PRN (05:24)
[2018-11-25] MEDS: Zosyn 3.375GM/100 Ml D5W 3.375 GM/100 ML IVPB IV SCH ×4 (05:44→23:44)
[2018-11-25 06:09] LABS: Appearance CLEAR (CLEAR); Bilirubin NEGATIVE (NEGATIVE); Blood NEGATIVE Ery/ul (0-5); Glucose NEGATIVE (NEGATIVE); Ketones NEGATIVE (NEGATIVE); Leukocyte Esterase TRACE (NEGATIVE); Mucus SLIGHT /HPF (NEGATIVE); Nitrite NEGATIVE (NEGATIVE); Protein,Urine Dip NEGATIVE (Negative); Specific Gravity 1.026 (1.005-1.025); Urobilinogen 4 mg/dL (0-1); WBC 0-2 /HPF (0-5)
[2018-11-25] MEDS: Advair Hfa 230/21 Mcg COMMON CANISTER IH SCH ×2 (07:15→19:37)
[2018-11-25] MEDS: DUONEB 0.5-3 MG/3 ml Neb IH SCH ×5 (07:15→23:39)
--- NOTE | 2018-11-25 07:37 | XRAY ---
Indication: Short of breath. Comparison: November 13, 2018. Portable chest demonstrates interval clearing of both lungs. Heart is not enlarged for AP portable technique. Bony thorax intact. Impression: Nonacute chest.
[2018-11-25] MEDS: NovoLIN R SQ PRN ×4 (07:43→22:04)
[2018-11-25] MEDS: solu-MEDROL 125 MG IV SCH ×3 (08:09→21:36)
[2018-11-25] MEDS ORDERED: PROVENTIL 2.5 MG/3 ML NEB IH PRN (09:01)
[2018-11-25] MEDS ORDERED: PHENERGAN 25 MG PO PRN (09:01)
[2018-11-25] MEDS ORDERED: NON-FORMULARY ITEM (Sumatriptan Succinate [Imitrex] 100 MG) PO PRN (09:01)
[2018-11-25] MEDS ORDERED: Ventolin Hfa MDI IH PRN (09:01)
[2018-11-25] MEDS ORDERED: Norco 10/325 MG Tablet PO PRN (09:01)
[2018-11-25] MEDS ORDERED: Patanol 1% OPHTHALMIC OP PRN (09:01)
[2018-11-25] MEDS ORDERED: MARY'S MOUTHWASH PO SCH (09:30)
[2018-11-25] MEDS ORDERED: PROVENTIL COMMON CANISTER IH PRN (09:48)
[2018-11-25] MEDS: Flonase NASAL NS SCH (09:52)
[2018-11-25] MEDS: Apresoline 25 MG TABLET PO SCH ×3 (09:54→21:40)
[2018-11-25] MEDS: CLARITIN 10 MG PO SCH (09:55)
[2018-11-25] MEDS: Cyclobenzaprine 10 MG PO SCH ×2 (09:55→21:40)
[2018-11-25] MEDS: ECOTRIN 81 MG PO SCH (09:55)
[2018-11-25] MEDS: Cozaar 50 MG PO SCH (09:55)
[2018-11-25] MEDS: NEURONTIN 300 MG PO SCH ×3 (09:56→21:42)
[2018-11-25] MEDS: Klor Con 10 MEQ PO SCH ×2 (09:56→21:40)
[2018-11-25] MEDS: EFFEXOR 37.5 MG PO SCH (09:56)
[2018-11-25] MEDS: Glucophage 500 MG PO SCH ×2 (09:57→16:36)
[2018-11-25] MEDS: Toprol Xl 50 MG PO SCH (09:57)
[2018-11-25] MEDS ORDERED: NON-FORMULARY ITEM (Atorvastatin Calcium [Atorvastatin Calcium] 40 MG) PO SCH (10:00)
[2018-11-25] MEDS ORDERED: GABAPENTIN 900 MG PO SCH (10:00)
[2018-11-25] MEDS ORDERED: NON-FORMULARY ITEM (Metformin Hcl [Glucophage] 1,000 MG) PO SCH (10:00)
[2018-11-25] MEDS ORDERED: Topamax 25 MG PO SCH (10:00)
[2018-11-25] MEDS ORDERED: NON-FORMULARY ITEM (Venlafaxine Hcl [Effexor] 75 MG) PO SCH (10:00)
[2018-11-25] MEDS ORDERED: NON-FORMULARY ITEM (Fluticasone/Vilanterol [Breo Ellipta 100-25 Mcg Inh] 1 EACH) IH SCH (10:00)
[2018-11-25] MEDS ORDERED: HYDRALAZINE HCL 100 MG PO SCH (10:00)
[2018-11-25] MEDS: Norco 10/325 MG Tablet PO PRN ×3 (10:01→21:43)
[2018-11-25] MEDS: Nystatin SUSPENSION 60 ML PO SCH ×2 (11:22→17:00)
[2018-11-25] MEDS ORDERED: MEDICATION INTERVENTION MC SCH ×3 (11:30→12:15)
[2018-11-25] MEDS: TOPIRAMATE PO SCH ×2 (11:43→22:34)
[2018-11-25] MEDS ORDERED: Advair Hfa 115/21 Mcg Inhaler IH SCH (19:00)
[2018-11-25] MEDS ORDERED: NON-FORMULARY ITEM (Trazodone Hcl [Desyrel] 100 MG) PO SCH (22:00)
[2018-11-25] MEDS ORDERED: ZOCOR 20MG PO SCH (22:00)
[2018-11-25] MEDS ORDERED: QUETIAPINE FUMARATE 150 MG PO SCH (22:00)
[2018-11-25] MEDS ORDERED: DESYREL 50 MG PO SCH (22:00)
[2018-11-25] MEDS ORDERED: Seroquel 100 MG PO SCH (22:00)
[2018-11-25] MEDS ORDERED: ROCEPHIN 1 Gm-D5w 50 ml Bag** 1 G/50 ML IVPB IV SCH (22:00)
[2018-11-25] MEDS ORDERED: NORTRIPTYLINE HCL 25 MG PO SCH (22:00)
[2018-11-25 23:22] LABS: 027 TOX PROD PRESUMPTIVE NEGATIVE (NEGATIVE); TOXIGENIC C. DIFF ORG NEGATIVE (NEGATIVE)
[2018-11-26] MEDS: Nystatin SUSPENSION 60 ML PO SCH ×2 (00:01→05:54)
[2018-11-26] MEDS: DUONEB 0.5-3 MG/3 ml Neb IH SCH ×2 (03:48→07:40)
[2018-11-26] MEDS: solu-MEDROL 125 MG IV SCH ×2 (03:49→08:05)
[2018-11-26] MEDS: Norco 10/325 MG Tablet PO PRN (04:08)
[2018-11-26] MEDS: Zosyn 3.375GM/100 Ml D5W 3.375 GM/100 ML IVPB IV SCH (05:54)
[2018-11-26 06:31] LABS: Basophil (Absolute #) 0 (0-0.4); Eosinophil (Absolute #) 0 (0-0.5); Granulocyte Absolute (ANC) 7.56 (1.4-6.9); Granulocytes % 86.3 % (36.0-66.0); Hematocrit 31.6 % (35-47); Hemoglobin 9.8 gm/dl (12.0-16.0); Lymphocyte (Absolute #) 0.92 (1.0-4.6); Lymphocytes % 10.5 % (24.0-44.0); Mean Cell Volume 91.1 fl (78-100); Mean Corpuscular Hemoglobin 28.2 pg (26-32); Mean Platelet Volume 11.1 fl (6-9.5); Monocyte (Absolute #) 0.28 (0.0-1.3); Monocytes % 3.2 % (0.0-12.0); Platelet Count 244 K/mm3 (150-450); Red Blood Count 3.47 M/mm3 (4.1-5.4); Red Cell Distribution Width 18.7 % (11.5-14.0); White Blood Count 8.8 K/mm3 (4.0-10.5)
[2018-11-26 07:02] LABS: ALBUMIN 3.4 g/dL (3.5-5.0); ALKALINE PHOSPHATASE 65 U/L (38-126); ANION GAP 15.5 MEQ/L (5-15); BLOOD UREA NITROGEN 19 mg/dL (7-17); CHLORIDE 105 mmol/L (98-107); Carbon Dioxide 21 mmol/L (22-30); Creatinine 1 0.79 mg/dL (0.52-1.04); Glucose 312 mg/dL (74-106); Potassium 4.7 mmol/L (3.5-5.1); SGOT/AST 19 U/L (14-36); SGPT/ALT 41 U/L (0-35); SODIUM 138 mmol/L (137-145); Total Protein 5.9 g/dL (6.3-8.2)
[2018-11-26 07:13] LABS: Lactic Acid 2.6 (0.4-2.0)
[2018-11-26] MEDS ORDERED: Klonopin 0.5 MG PO PRN (07:34)
[2018-11-26] MEDS: NovoLIN R SQ PRN (07:50)
[2018-11-26] MEDS: Glucophage 500 MG PO SCH (08:05)
[2018-11-26] MEDS: Advair Hfa 230/21 Mcg COMMON CANISTER IH SCH (08:43)
[2018-11-26] MEDS: ECOTRIN 81 MG PO SCH (09:54)
[2018-11-26] MEDS: Apresoline 25 MG TABLET PO SCH (09:55)
[2018-11-26] MEDS: CLARITIN 10 MG PO SCH (09:55)
[2018-11-26] MEDS: Cozaar 50 MG PO SCH (09:55)
[2018-11-26] MEDS: EFFEXOR 37.5 MG PO SCH (09:56)
[2018-11-26] MEDS: NEURONTIN 300 MG PO SCH (09:57)
[2018-11-26] MEDS: Toprol Xl 50 MG PO SCH (09:57)
[2018-11-26] MEDS: Klor Con 10 MEQ PO SCH (09:57)
[2018-11-26] MEDS: Cyclobenzaprine 10 MG PO SCH (09:58)
[2018-11-26] MEDS: TOPIRAMATE PO SCH (09:58)
[2018-11-26] MEDS: Flonase NASAL NS SCH (10:00)
--- NOTE | 2018-11-26 11:08 | PCM.DS ---
Discharge Summary Date of Admission: 11/25/18 05:14 Admitting Physician: SHERIF JACKSON Primary Care Provider: SHERIF JACKSON Allergies Allergies lisinopril Allergy (Verified 11/25/18 05:53) Hospital Summary - Hospital Course Hospital Course: Pt is a 58 yo female pt of mine from [facility] with COPD, anxiety, DM II uncontrolled , and HTN who was re-admitted this weekend for COPD exacerbation. She thinks she needed admission because her nebilizer only had albuterol in it as opposed to the meds we are using here (albuterol/ipratropium). She was re-admitted the day after finishing her po steroid, apparently. Her CXR on admission was non acute (cleared from previous admission). Her BS continue to be elevated; she was no longer on lantus at home due to decreasing BS (due to decreasing amounts of steroids) but she did continue using humalog on a sliding scale. She is complaining of diarrhea, some formed and some watery stools. I have ordered a c. diff test. Her exam is completely benign today. Will send pt home on po steroids, duonebs , and nystatin po (per her request - was having tongue pain and could not get the [employer] Magic Mouthwash). There was some problem here about supplies, staff thought she was hoarding wipes , kept asking for wipes; pt was very upset about that this morning. She was given klonopin 0.5mg po x 1. - Vitals & Intake/Output Vital Signs: Vital Signs Temperature 98.1 F 11/26/18 07:27 Pulse Rate 70 11/26/18 07:27 Respiratory Rate 22 11/26/18 08:00 Blood Pressure 122/56 11/26/18 07:27 O2 Sat by Pulse Oximetry 97 11/26/18 07:27 Oxygen-Last Documented O2 Percentage 2 Liters = 28% Intake & Output: Intake & Output 11/23/18 11/24/18 11/25/18 11/26/18 11:59 11:59 11:59 11:59 Intake Total 240 3244 Output Total 2050 Balance 240 1194 Weight 78.8 kg 78.9 kg - Lab Result Diagrams: 11/26/18 06:29 11/26/18 06:29 Lab Results-Last 24 Hrs: Accuchecks Date 11/26/18 Date 11/25/18 Date 11/25/18 Time 07:30 Time 16:30 Time 11:49 Accucheck Value: 380 Accucheck Value: 193 Accucheck Value: 237 Accucheck Value: 237 Lab Results-Last 24 Hours 11/25/18 11/25/18 11/26/18 Range/Units 13:32 22:15 06:29 WBC 8.8 (4.0-10.5) K/mm3 RBC 3.47 L (4.1-5.4) M/mm3 Hgb 9.8 L (12.0-16.0) gm/dl Hct 31.6 L (35-47) % MCV 91.1 (78-100) fl MCH 28.2 (26-32) pg MCHC 31.0 L (32-36) g/dl RDW 18.7 H (11.5-14.0) % Plt Count 244 (150-450) K/mm3 MPV 11.1 H (6-9.5) fl Gran % 86.3 H (36.0-66.0) % Eos # (Auto) 0 (0-0.5) Absolute Lymphs (auto) 0.92 L (1.0-4.6) Absolute Monos (auto) 0.28 (0.0-1.3) Lymphocytes % 10.5 L (24.0-44.0) % Monocytes % 3.2 (0.0-12.0) % Eosinophils % 0.0 (0.00-5.0) % Basophils % 0.0 (0.0-0.4) % Absolute Granulocytes 7.56 H (1.4-6.9) Basophils # 0 (0-0.4) Sodium (137-145) mmol/L Potassium (3.5-5.1) mmol/L Chloride (98-107) mmol/L Carbon Dioxide (22-30) mmol/L Anion Gap (5-15) MEQ/L BUN (7-17) mg/dL Creatinine (0.52-1.04) mg/dL Estimated GFR ML/MIN Glucose (74-106) mg/dL Lactic Acid (0.4-2.0) Calcium (8.4-10.2) mg/dL Total Bilirubin (0.2-1.3) mg/dL AST (14-36) U/L ALT (0-35) U/L Alkaline Phosphatase (38-126) U/L Troponin I < 0.012 (0.000-0.034) ng/mL Serum Total Protein (6.3-8.2) g/dL Albumin (3.5-5.0) g/dL Stl C. diff Tox B Gene NEGATIVE (NEGATIVE) C.difficile 027-NAP1-B1 PRESUMPTIVE NEGATIVE (NEGATIVE) 11/26/18 11/26/18 Range/Units 06:29 07:10 WBC (4.0-10.5) K/mm3 RBC (4.1-5.4) M/mm3 Hgb (12.0-16.0) gm/dl Hct (35-47) % MCV (78-100) fl MCH (26-32) pg MCHC (32-36) g/dl RDW (11.5-14.0) % Plt Count (150-450) K/mm3 MPV (6-9.5) fl Gran % (36.0-66.0) % Eos # (Auto) (0-0.5) Absolute Lymphs (auto) (1.0-4.6) Absolute Monos (auto) (0.0-1.3) Lymphocytes % (24.0-44.0) % Monocytes % (0.0-12.0) % Eosinophils % (0.00-5.0) % Basophils % (0.0-0.4) % Absolute Granulocytes (1.4-6.9) Basophils # (0-0.4) Sodium 138 (137-145) mmol/L Potassium 4.7 D (3.5-5.1) mmol/L Chloride 105 (98-107) mmol/L Carbon Dioxide 21 L (22-30) mmol/L Anion Gap 15.5 H (5-15) MEQ/L BUN 19 H (7-17) mg/dL Creatinine 0.79 (0.52-1.04) mg/dL Estimated GFR > 60.0 ML/MIN Glucose 312 H (74-106) mg/dL Lactic Acid 2.6 H (0.4-2.0) Calcium 9.0 (8.4-10.2) mg/dL Total Bilirubin 0.40 (0.2-1.3) mg/dL AST 19 (14-36) U/L ALT 41 H (0-35) U/L Alkaline Phosphatase 65 (38-126) U/L Troponin I (0.000-0.034) ng/mL Serum Total Protein 5.9 L (6.3-8.2) g/dL Albumin 3.4 L (3.5-5.0) g/dL Stl C. diff Tox B Gene (NEGATIVE) C.difficile 027-NAP1-B1 (NEGATIVE) Micro Results-Entire Visit: Accuchecks Date 11/26/18 Date 11/25/18 Date 11/25/18 Time 07:30 Time 16:30 Time 11:49 Accucheck Value: 380 Accucheck Value: 193 Accucheck Value: 237 Accucheck Value: 237 - Radiology Exams Ordered Rad Exams-Entire Visit: Radiology Procedures Category Date Time Status CHEST 1 VIEW (PORTABLE) Stat Exams 11/25/18 01:28 Completed - Procedures and Test Procedures and Tests throughout Hospitalization: Therapy Orders & Screens 11/25/18 01:46 Respiratory Therapy Assessment DAILY Comment: 11/25/18 05:24 Oxygen Nasal Cannula 2 lpm Comment: 11/25/18 07:00 Peak Expiratory Flow Rate ONCE Comment: Reason For Exam: Diagnosis: exacerbation of COPD 11/25/18 08:25 Respiratory Therapy Assessment DAILY Comment: Diagnosis: COPD exacerbation Discharge Exam General Appearance: no apparent distress, alert Neurologic Exam: oriented x 3, cooperative, other (speech pressured as usual) Eye Exam: eyes nml inspection Ears, Nose, Throat Exam: moist mucous membranes Neck Exam: normal inspection Respiratory Exam: diminished breath sounds (good air exchange), prolonged expirations, No crackles/rales, No rhonchi, No wheezing Cardiovascular Exam: regular rate/rhythm, normal heart sounds, No murmur Gastrointestinal/Abdomen Exam: soft, normal bowel sounds, No tenderness, No distention, No mass, No guarding, No rebound Extremity Exam: normal inspection, No pedal edema, No swelling Skin Exam: normal color, warm, dry, No rash Final Diagnosis/Problem List - Final Discharge Diagnosis/Problem (1) COPD with exacerbation Current Visit: Yes Status: Acute Assessment & Plan: Will continue steroid and add duonebs at home (QID). I have sent a message to our office to make an appointment for her with Dr. Han this week or next. Code(s): J44.1 - CHRONIC OBSTRUCTIVE PULMONARY DISEASE W (ACUTE) EXACERBATION (2) Diabetes Current Visit: No Status: Chronic Assessment & Plan: continue sliding scale at home. She will call if BS consistently over 300 - then would add Lantus 10 units daily back in (pt has this at home). Code(s): E11.9 - TYPE 2 DIABETES MELLITUS WITHOUT COMPLICATIONS (3) Hypertension Current Visit: No Status: Chronic Code(s): I10 - ESSENTIAL (PRIMARY) HYPERTENSION (4) Diarrhea Current Visit: Yes Status: Acute Assessment & Plan: hold movantik. C. diff presumptive neg yesterday. Will give loperamide prn. Code(s): R19.7 - DIARRHEA, UNSPECIFIED - Discharge Disposition: Home, Self-Care Condition: Good Prescriptions: New Ipratropium [place] 0.2 mg IH QID #120 unit Nystatin 60 ml [Nystatin SUSPENSION 60 ML] 5 ml PO Q6HT #1 bottle Loperamide HCl 2 mg [Imodium 2 mg] 2 mg PO QID PRN #15 capsule PRN Reason: Diarrhea Continue Fluticasone/Vilanterol [Breo Ellipta 100-25 Mcg INH] 1 each IH DAILY Fluticasone Propionate [Flonase NASAL] 1 spray NS DAILY Quetiapine Fumarate [Seroquel] 150 mg PO HS Nortriptyline HCl [Pamelor] 25 mg PO HS Metformin HCl [Glucophage] 1,000 mg PO BID Gabapentin [Neurontin] 900 mg PO TID Trazodone HCl [Desyrel] 100 mg PO HS Hydrocodone/APAP 10/325 mg [[place] 10/325 MG Tablet] 10 - 325 mg PO QID PRN PRN Reason: Pain Potassium Chloride 10 Meq Tab* [Klor Con 10 MEQ] 20 meq PO BID Cyclobenzaprine HCl 10 mg [Cyclobenzaprine 10 MG] 5 mg PO BID Hydralazine HCl 100 mg PO TID Sumatriptan Succinate [Imitrex] 100 mg PO DAILY PRN PRN PRN Reason: Headache Atorvastatin Calcium 40 mg PO DAILY Ergocalciferol (Vitamin D2) [Vitamin D2] 50,000 unit PO WEEKLY Loratadine [Allergy] 10 mg PO DAILY Albuterol Sulfate 2.5 mg IH TID PRN PRN Reason: Shortness Of Breath Aspirin EC 81 mg [Ecotrin 81 mg] 81 mg PO DAILY Losartan Potassium 50 mg [Cozaar 50 MG] 50 mg PO DAILY Promethazine HCl 25 mg [Phenergan 25 mg] 25 mg PO Q12H PRN PRN PRN Reason: nausea Naloxegol Oxalate [Movantik] 25 mg PO DAILY Albuterol 8 gm Mdi Hfa [Ventolin Hfa MDI] 108 mcg IH Q6HPRN PRN PRN Reason: Shortness Of Breath Metoprolol Succinate 50 mg [Toprol Xl 50 MG] 50 mg PO DAILY Topiramate 25 mg [Topamax 25 MG] 50 mg PO BID Olopatadine HCl Ophth [Patanol 1% OPHTHALMIC] 0.25 ml OP BID PRN #1 bottle PRN Reason: Allergies Venlafaxine HCl [Effexor] 75 mg PO DAILY Prednisone 20 mg [Deltasone 20 mg] 20 mg PO DAILY #17 tablet Discontinued Prednisone 20 mg [Deltasone 20 mg] 10 mg PO DAILY Levofloxacin [Levaquin] 500 mg PO DAILY #9 tablet Nystatin/TCN/Hc/Diphenhydramin [Wendy's Mouthwash] 5 ml PO Q6H bottle Additional Instructions: Hold movantik until diarrhea has resolved. Return to ER for increased shortness of breath, fever, chest pain, or any other worrisome symptom. Follow up with: SHERIF JACKSON [Primary Care Provider] - 1 Week
[2018-11-26 12:16] VITALS: BP 132/70; PULSE 89; O2SAT 96
[2018-11-27] MEDS ORDERED: VITAMIN D2 PO SCH (10:00)
--- NOTE | 2018-11-27 10:51 | HP ---
CHIEF COMPLAINT: Shortness of breath. HISTORY OF PRESENT ILLNESS: The patient is a 58 year-old white female with long history of chronic obstructive pulmonary disease exacerbations who is now on oxygen and currently now steroid dependent. She has been in the hospital over the last two weeks more in than out. The patient apparently been on oral steroids at home and was on her last dose and was discontinued and began having problems with increasing shortness of breath. She again presented herself back to the emergency room this time as she reports she was not going to wait until she got as bad as she was previously. PAST MEDICAL/SURGICAL HISTORY: Otherwise significant taking [place] on routine basis from the pain clinic. In fact it was one of the main things she asked me today was for her [place] to be given. The patient's history otherwise is significant for cholecystectomy, previous sections, colonoscopy, diabetes mellitus type 2, osteoarthritis, anxiety and depression. The nurses noted that she was quite anxious on her last visit. MEDICATIONS: Her home medication list is extensive including Albuterol, aspirin, Atorvastatin, cyclobenzaprine, vitamin D, Flonase, Breo Ellipta, Gabapentin, hydralazine, hydrocodone. She is on levofloxacin, loratadine, losartan, Metformin, Metoprolol, Movantik, Pamelor, Wendy's Magic Mouthwash, Patanol eye drops, potassium, prednisone, promethazine, Seroquel, Sumatriptan, topiramate, trazodone, venlafaxine. ALLERGIES: LISINOPRIL. PHYSICAL EXAMINATION: Vital signs on admission to the emergency room showed temperature 97.6F, pulse 74, respiratory rate 24, blood pressure 93/67. O2 saturation 97%. HEENT: Normocephalic, atraumatic. Pupils equal round reactive to light. Extraocular movements intact. Oropharynx is pink and moist. NECK: Supple without lymphadenopathy, thyromegaly or JVD. CHEST: Reveals diminished air movement, wheezes mcfp through expiration. HEART: Regular rate and rhythm. ABDOMEN: Soft. No palpable masses. EXTREMITIES: Without cyanosis, clubbing or edema. NEUROLOGIC: The patient is alert and oriented x3. The patient does have somewhat pressured speech. LAB DATA AND TESTS: The patient's chest x-ray reportedly still showed some infiltrates according to the emergency room physician. The official reading is not on the chart at this time. The patient's laboratories showed troponin of less than 0.012. UA was essentially normal with specific gravity 1.026. Group A strep negative. Influenza A, B and respiratory syncytial virus were all negative. Glucose 145, BUN 24, creatinine 0.87. Electrolytes were essentially normal. Liver enzymes were essentially normal as well. Slight elevation of ST-T at 46. D-dimer normal at 473. Lactic acid initially was somewhat high at 3.3 although she did not appear septic whatsoever. Her white count was elevated 13.4. Her hemoglobin was 10.0 and PLT count 243,000. ASSESSMENT: A patient with exacerbation of chronic obstructive pulmonary disease in the hospital again for IV steroids, IV antibiotics, nebulizer treatments. She will continue her list of medications as listed above.
== END 2018-11-26 12:27 | disposition home or self-care (01) ==
LOC: ED 01:18 → MED SURG 05:14
PROVIDERS: ADMIT Family Medicine; ATTEND Family Medicine
DX: J44.1 Chronic obstructive pulmonary disease with (acute) exacerbation (principal); E11.9 Type 2 diabetes mellitus without complications; I10 Essential (primary) hypertension; R19.7 Diarrhea, unspecified; Z79.899 Other long term (current) drug therapy; Z99.81 Dependence on supplemental oxygen
CPT/HCPCS: 36000; 36415; 71045; 80053; 81001; 82962; 83605; 83880; 84484; 85025; 85379; 87493; 87631; 87651; 93005; 93041; 93268; 94150; 94640; 94760; 94762; 96374; 99285; G0378; 96360; 96361; 96365; J0696; J2543; J2930; A9270-GY

== ENCOUNTER 2018-11-30 11:07 | Observation (INO) | payer OTHER ==
[2018-11-30 12:52] LABS: Hematocrit 32.5 % (35-47); Hemoglobin 10.5 gm/dl (12.0-16.0); Mean Cell Volume 89.5 fl (78-100); Mean Corpuscular Hemoglobin 28.9 pg (26-32); Mean Corpuscular Hgb Concent. 32.3 g/dl (32-36); Mean Platelet Volume 10.6 fl (6-9.5); Platelet Count 190 K/mm3 (150-450); Red Blood Count 3.63 M/mm3 (4.1-5.4); Red Cell Distribution Width 19.2 % (11.5-14.0); White Blood Count 8.1 K/mm3 (4.0-10.5)
--- NOTE | 2018-11-30 13:01 | XRAY ---
Indication: COPD exacerbation. Insomnia. Liset. Comparison: November 25, 2018. PA/lateral chest better inflated and remains clear. Heart and mediastinal structures remain within normal limits. No new/acute findings. Impression: Nonacute chest.
[2018-11-30 13:05] LABS: Appearance CLEAR (CLEAR); Bilirubin NEGATIVE (NEGATIVE); Blood NEGATIVE Ery/ul (0-5); Epithelial Cells RARE /HPF (FEW); Glucose NEGATIVE (NEGATIVE); Ketones NEGATIVE (NEGATIVE); Leukocyte Esterase NEGATIVE (NEGATIVE); Mucus SLIGHT /HPF (NEGATIVE); Nitrite NEGATIVE (NEGATIVE); Protein,Urine Dip NEGATIVE (Negative); Specific Gravity 1.019 (1.005-1.025); Urobilinogen NEGATIVE mg/dL (0-1)
[2018-11-30 13:06] LABS: Bacteria NONE SEEN /HPF (NEGATIVE)
[2018-11-30 13:29] LABS: ALKALINE PHOSPHATASE 81 U/L (38-126); BLOOD UREA NITROGEN 21 mg/dL (7-17); CHLORIDE 101 mmol/L (98-107); Carbon Dioxide 26 mmol/L (22-30); Creatinine 1 0.79 mg/dL (0.52-1.04); Glucose 269 mg/dL (74-106); Potassium 3.7 mmol/L (3.5-5.1); SGOT/AST 32 U/L (14-36); SGPT/ALT 55 U/L (0-35); SODIUM 141 mmol/L (137-145); Total Protein 6.6 g/dL (6.3-8.2)
[2018-11-30] MEDS ORDERED: NON-FORMULARY ITEM (Sumatriptan Succinate [Imitrex] 100 MG) PO PRN (14:22)
[2018-11-30] MEDS ORDERED: Patanol 1% OPHTHALMIC OP PRN (14:22)
[2018-11-30] MEDS ORDERED: MEDICATION INTERVENTION MC SCH (14:45)
[2018-11-30] MEDS ORDERED: HYDRALAZINE HCL 100 MG PO SCH (15:00)
[2018-11-30] MEDS: DUONEB 0.5-3 MG/3 ml Neb IH SCH (15:36)
[2018-11-30] MEDS: Apresoline 25 MG TABLET PO SCH ×2 (16:15→21:56)
[2018-11-30] MEDS: Norco 10/325 MG Tablet PO PRN ×2 (16:16→23:01)
[2018-11-30] MEDS: NovoLOG Insulin SQ PRN ×2 (16:17→21:57)
[2018-11-30] MEDS ORDERED: Ativan 1 MG PO PRN (19:18)
[2018-11-30 19:53] LABS: Amphetamine,Urine NEGATIVE (NEGATIVE); Barbiturate,Urine NEGATIVE (NEGATIVE); Benzodiazepine,Urine NEGATIVE (NEGATIVE); Cocaine,Urine NEGATIVE (NEGATIVE); Methadone,Urine NEGATIVE (NEGATIVE); Opiate,Urine POSITIVE (NEGATIVE); PCP,Urine NEGATIVE (NEGATIVE); THC,Urine NEGATIVE (NEGATIVE)
[2018-11-30] MEDS: Ativan 1 MG PO PRN ×2 (21:56→23:00)
[2018-11-30] MEDS: Risperdal 1 MG PO SCH (21:56)
[2018-11-30] MEDS: Klor Con 10 MEQ PO SCH (21:56)
[2018-12-01] MEDS: DUONEB 0.5-3 MG/3 ml Neb IH SCH ×4 (08:01→19:57)
[2018-12-01] MEDS: Advair Hfa 115/21 Common canister IH SCH ×2 (08:02→19:56)
[2018-12-01] MEDS: Cozaar 50 MG PO SCH (08:34)
[2018-12-01] MEDS: Apresoline 25 MG TABLET PO SCH ×3 (08:34→21:35)
[2018-12-01] MEDS: ECOTRIN 81 MG PO SCH (08:34)
[2018-12-01] MEDS: Toprol Xl 50 MG PO SCH (08:34)
[2018-12-01] MEDS: Klor Con 10 MEQ PO SCH ×2 (08:34→21:36)
[2018-12-01] MEDS: CLARITIN 10 MG PO SCH (08:34)
[2018-12-01] MEDS: Flonase NASAL NS SCH (08:35)
[2018-12-01] MEDS: Norco 10/325 MG Tablet PO PRN ×3 (08:39→21:57)
[2018-12-01] MEDS ORDERED: NON-FORMULARY ITEM (Fluticasone/Vilanterol [Breo Ellipta 100-25 Mcg Inh] 1 EACH) IH SCH (10:00)
[2018-12-01] MEDS: NovoLOG Insulin SQ PRN (12:12)
--- NOTE | 2018-12-01 16:23 | PCM.HP ---
History of Present Illness - Chief Complaint Chief Complaint: exac copd, insomnia,viri History of Present Illness: is a 58 year old female pt of mine from [facility], until Jun a pt of Dr. Dez Sánchez, with hx COPD, anxiety/depression, chronic low back pain (sees pain mgmt), DM II, neuropathy, migraine, HTN who was admitted yesterday directly by me for insomnia and viri She had been at the hospital that morning for a stress test; she brought her suitcase because she thought she was being admitted. She exhibited manic type behavior for several of the staff. For example, during her admission the RN could not determine from her if she had been taking a particular medicine; pt would start talking tangientially with every question. However, she improved over the next several hours and by the time her [facility] consult was done, she was acting much more normally. The consult advised outpatient treatment. Pt said yesterday that she hadn't slept for 7 days. She has been on po steroids after a COPD exacerbation. I did discontinue the steroids as well as most of her meds yesterday. I gave her po ativan 1mg x 2 last night as well as 2mg risperdal and she slept very well all night long. This morning she was alert and conversant; has slightly pressured speech as per her usual but participates in the usual give and take of conversation and answers questions appropriately. UDS was positive for opiates only. She had an episode during/after her admission yesterday, not reported by staff, but by pt. She says she was shaking and "flopping all over" but was aware the whole time. She says the RN thought it was an anxiety attack, although the pt says she was really afraid she was going to . I also, yesterday, received a visit from her brother in my office, and he was concerned that she has been having odd behaviors for the past 3 months or so. He is not listed on her chart for information sharing, so I did not comment on her care to him, but he did give me some information about the patient flying off into a rage over things that seemed atypical for her. Pt states that Dr. Cunah wanted her to have lasix 20mg x 3d and today would be her last day for that. I reviewed her medications in [place]: Effexor 75mg started 11/23/18 - took 2-3 d then started feeling odd, increased activity Topamax 50mg - started 09/28/18, taking prn [facility]CI. Gabapentin 300mg po TID, has been on since 08/2016. fills it but not monthly. [place] 10/325, last fill 11/01/18. Hydroxyzine 25mg po BID prn, last filled 09/01/17. Movantic - on since 01/2017-05/2018, then again 09/03/17. Nortriptyline since 03/2016 - fills regularly. Seroquel 300mg - 1/2 BID - started 100mg 04/2015, then 200mg 06/2016 (filled irregularly), then 300mg 08/07/17. None from 12/2017-06/2018. Trazodone - started 06/2016 - last fill 08/2018 (30d) - Review of Systems Ears, Nose, & Throat: Other (bumps in her mouth) Cardiac: Edema (chronic) Musculoskeletal: Back Pain (chronic) Neurological: Headache (chronic intermittent), Other (shaking as noted in HPI) Psychological: Anxiety, Depression, No Suicidal Ideations, No Homicidal Ideations All Other Systems: Reviewed and Negative Medications & Allergies Home Medications: Home Medication List Fluticasone/Vilanterol [Breo Ellipta 100-25 Mcg INH] 1 each IH DAILY 03/09/16 [ History Confirmed 11/30/18] Fluticasone Propionate [Flonase NASAL] 1 spray NS DAILY 03/13/16 [History Confirmed 11/30/18] Gabapentin [Neurontin] 900 mg PO TID 09/29/16 [History Confirmed 11/30/18] Metformin HCl [Glucophage] 1,000 mg PO BID 09/29/16 [History Confirmed 11/30/18] Nortriptyline HCl [Pamelor] 25 mg PO HS 09/29/16 [History Confirmed 11/30/18] Quetiapine Fumarate [Seroquel] 150 mg PO HS 09/29/16 [History Confirmed 11/30/18 ] Trazodone HCl [Desyrel] 100 mg PO HS 09/29/16 [History Confirmed 11/30/18] Hydrocodone/APAP 10/325 mg [[place] 10/325 MG Tablet] 10 - 325 mg PO QID PRN 11/04/16 [History Confirmed 11/30/18] Potassium Chloride 10 Meq Tab* [Klor Con 10 MEQ] 20 meq PO BID 08/29/17 [ History Confirmed 11/30/18] Cyclobenzaprine HCl 10 mg [Cyclobenzaprine 10 MG] 5 mg PO BID 02/20/18 [ History Confirmed 11/30/18] Hydralazine HCl 100 mg PO TID 02/20/18 [History Confirmed 11/30/18] Albuterol 8 gm Mdi Hfa [Ventolin Hfa MDI] 108 mcg IH Q6HPRN PRN 11/07/18 [ History Confirmed 11/30/18] Albuterol Sulfate 2.5 mg IH TID PRN 11/07/18 [History Confirmed 11/30/18] Aspirin EC 81 mg [Ecotrin 81 mg] 81 mg PO DAILY 11/07/18 [History Confirmed 11/30/18] Atorvastatin Calcium 40 mg PO DAILY 11/07/18 [History Confirmed 11/30/18] Ergocalciferol (Vitamin D2) [Vitamin D2] 50,000 unit PO WEEKLY 11/07/18 [ History Confirmed 11/30/18] Loratadine [Allergy] 10 mg PO DAILY 11/07/18 [History Confirmed 11/30/18] Losartan Potassium 50 mg [Cozaar 50 MG] 50 mg PO DAILY 11/07/18 [History Confirmed 11/30/18] Metoprolol Succinate 50 mg [Toprol Xl 50 MG] 50 mg PO DAILY 11/07/18 [ History Confirmed 11/30/18] Naloxegol Oxalate [Movantik] 25 mg PO DAILY 11/07/18 [History Confirmed 11/30/18 ] Promethazine HCl 25 mg [Phenergan 25 mg] 25 mg PO Q12H PRN PRN 11/07/18 [ History Confirmed 11/30/18] Sumatriptan Succinate [Imitrex] 100 mg PO DAILY PRN PRN 11/07/18 [History Confirmed 11/30/18] Topiramate 25 mg [Topamax 25 MG] 50 mg PO BID 11/07/18 [History Confirmed 11/30/18] Olopatadine HCl Ophth [Patanol 1% OPHTHALMIC] 0.25 ml OP BID PRN #1 bottle 11/16/18 [Rx Confirmed 11/30/18] Venlafaxine HCl [Effexor] 75 mg PO DAILY 11/25/18 [History Confirmed 11/30/18] Ipratropium [place] 0.2 mg IH QID #120 unit 11/26/18 [Rx Confirmed 11/30/18] Loperamide HCl 2 mg [Imodium 2 mg] 2 mg PO QID PRN #15 capsule 11/26/18 [ Rx Confirmed 11/30/18] Nystatin 60 ml [Nystatin SUSPENSION 60 ML] 5 ml PO Q6HT #1 bottle [Rx Confirmed 11/30/18] Prednisone 20 mg [Deltasone 20 mg] 20 mg PO DAILY #17 tablet 11/26/18 [Rx Confirmed 11/30/18] Allergies/Adverse Reactions: Allergies Allergy/AdvReac Type Severity Reaction Status Date / Time lisinopril Allergy Verified 11/25/18 05:53 - Past Medical History Past Medical History: Yes Neurological History: Migraines, TIA ENT History: No Pertinent History Cardiac History: Hypertension Respiratory History: COPD, Pneumonia, Sleep Apnea Endocrine Medical History: Diabetes Type II Musculoskelatal History: Osteoarthritis GI Medical History: No Pertinent History History: No Pertinent History Pyscho-Social History: Anxiety, Depression Reproductive Disorders: No Pertinent History Comment: depression, anxiety, viri - Female History Hx Last Menstrual Period: N/A Are you now?: No - Past Surgical History Past Surgical History: Yes Neuro Surgical History: No Pertinent History Cardiac History: No Pertinent History Respiratory Surgery: No Pertinent History GI Surgical History: Cholecystectomy Genitourinary Surgical Hx: No Pertinent History Musculskeletal Surgical Hx: No Pertinent History Female Surgical History: Section Other Surgical History: colonoscopy - Social History Smoking Status: Current every day smoker How long have you smoked: 45 years Exposure to second hand smoke: Yes Alcohol: Rarely Drug Use: none - Physical Exam Vital Signs: Vital Signs - 24 hr Temp Pulse Resp BP Pulse Ox 12/01/18 12:05 98.2 F 83 18 97/54 97 12/01/18 08:25 84 18 95 12/01/18 07:31 98.1 F 80 18 138/71 95 12/01/18 00:56 98.0 F 97 H 18 124/61 98 11/30/18 21:00 97.7 F 82 18 117/56 93 L 11/30/18 16:24 97.9 F 77 20 135/62 93 L General Appearance: no apparent distress, alert, anxiety Neurologic Exam: oriented x 3, cooperative Eye Exam: eyes nml inspection Ears, Nose, Throat Exam: moist mucous membranes, other (no lesions seen on tongue, lips, or buccal mucosa) Neck Exam: normal inspection Respiratory Exam: normal breath sounds, lungs clear, prolonged expirations, No crackles/rales, No rhonchi, No wheezing Cardiovascular Exam: regular rate/rhythm, normal heart sounds, No murmur Gastrointestinal/Abdomen Exam: soft, normal bowel sounds, No tenderness, No distention, No mass, No guarding, No rebound Extremity Exam: normal inspection Skin Exam: normal color, warm, dry, No rash Results - Labs Lab/Micro Results: Accuchecks Date 12/01/18 Date 12/01/18 Date 11/30/18 Time 12:08 Time 08:01 Time 22:00 Accucheck Value: 302 Accucheck Value: 192 Accucheck Value: 409 Accucheck Value: 337 Lab Results-Last 24 Hours 11/30/18 Range/Units 12:25 Urine Opiates Level POSITIVE (NEGATIVE) Ur Methadone NEGATIVE (NEGATIVE) Urine Barbiturates NEGATIVE (NEGATIVE) Ur Phencyclidine (PCP) NEGATIVE (NEGATIVE) Urine Amphetamine NEGATIVE (NEGATIVE) U Benzodiazepine Level NEGATIVE (NEGATIVE) Urine Cocaine NEGATIVE (NEGATIVE) Urine Marijuana (THC) NEGATIVE (NEGATIVE) Accuchecks Date 12/01/18 Date 12/01/18 Date 11/30/18 Time 12:08 Time 08:01 Time 22:00 Accucheck Value: 302 Accucheck Value: 192 Accucheck Value: 409 Accucheck Value: 337 - Radiology Impressions Radiology Exams & Impressions: Radiology Procedures Category Date Time Status CHEST 2 VIEWS (PA AND LAT) Routine Exams 11/30/18 12:25 Completed Assessment/Plan (1) Viri Current Visit: Yes Status: Resolved Assessment & Plan: Could have been related to lack of sleep and steroid use, but could be related to her pre-existing depression (untreated bipolar disorder?). I have done the following with her medications (as [facility] was consulted but would address medicines outpatient, not during this hospital stay- list is not all inclusive): Stop the following: Effexor, movantic, nortriptyline, seroquel, topamax, trazodone, hydroxyzine, prednisone. Continue the following: Gabapentin. Start the following: Risperdal 2mg/d; lunesta 2mg qhs. (2) Insomnia Current Visit: Yes Status: Acute Qualifiers: Insomnia type: primary Qualified Code(s): F51.01 - Primary insomnia Assessment & Plan: she will probably need to go home with nasal narcan as she is also on pain meds. Will try this tonight and see if she can sleep with Lunesta. Code(s): G47.00 - INSOMNIA, UNSPECIFIED (3) Anxiety Current Visit: No Status: Chronic Code(s): F41.9 - ANXIETY DISORDER, UNSPECIFIED (4) COPD (chronic obstructive pulmonary disease) Current Visit: No Status: Chronic Qualifiers: COPD type: chronic bronchitis Chronic bronchitis type: unspecified Qualified Code(s): J42 - Unspecified chronic bronchitis Assessment & Plan: stable currently (5) Diabetes Current Visit: No Status: Chronic Qualifiers: Diabetes mellitus type: type 2 Diabetes mellitus complication status: with hyperglycemia Code(s): E11.9 - TYPE 2 DIABETES MELLITUS WITHOUT COMPLICATIONS (6) Hypertension Current Visit: No Status: Chronic Qualifiers: Hypertension type: essential hypertension Qualified Code(s): I10 - Essential (primary) hypertension Code(s): I10 - ESSENTIAL (PRIMARY) HYPERTENSION
[2018-12-01] MEDS: Risperdal 1 MG PO SCH (21:57)
[2018-12-01] MEDS ORDERED: NON-FORMULARY ITEM PO SCH (22:00)
[2018-12-02] MEDS: Advair Hfa 115/21 Common canister IH SCH (00:40)
[2018-12-02] MEDS: DUONEB 0.5-3 MG/3 ml Neb IH SCH (00:40)
[2018-12-02] MEDS: Norco 10/325 MG Tablet PO PRN (03:56)
[2018-12-02 06:34] LABS: Hematocrit 34.2 % (35-47); Hemoglobin 10.6 gm/dl (12.0-16.0); Mean Cell Volume 91.9 fl (78-100); Mean Platelet Volume 10.3 fl (6-9.5); Platelet Count 123 K/mm3 (150-450); Red Blood Count 3.72 M/mm3 (4.1-5.4); Red Cell Distribution Width 19.9 % (11.5-14.0); White Blood Count 5.9 K/mm3 (4.0-10.5)
[2018-12-02 06:39] LABS: Mean Corpuscular Hemoglobin 28.4 pg (26-32)
[2018-12-02 06:43] LABS: ANION GAP 11.8 MEQ/L (5-15); BLOOD UREA NITROGEN 20 mg/dL (7-17); CHLORIDE 108 mmol/L (98-107); Calcium 9.1 mg/dL (8.4-10.2); Carbon Dioxide 26 mmol/L (22-30); Glucose 167 mg/dL (74-106); Potassium 3.9 mmol/L (3.5-5.1); SODIUM 141 mmol/L (137-145)
[2018-12-02] MEDS: NovoLOG Insulin SQ PRN (08:25)
[2018-12-02] MEDS: Flonase NASAL NS SCH (09:11)
[2018-12-02] MEDS: Apresoline 25 MG TABLET PO SCH (09:12)
[2018-12-02] MEDS: CLARITIN 10 MG PO SCH (09:13)
[2018-12-02] MEDS: Cozaar 50 MG PO SCH (09:13)
[2018-12-02] MEDS: Klor Con 10 MEQ PO SCH (09:13)
[2018-12-02] MEDS: Toprol Xl 50 MG PO SCH (09:13)
[2018-12-02] MEDS: ECOTRIN 81 MG PO SCH (09:13)
[2018-12-02 12:06] VITALS: BP 111/59; PULSE 74; O2SAT 96
--- NOTE | 2018-12-02 12:22 | PCM.DS ---
Discharge Summary Date of Admission: 11/30/18 11:25 Admitting Physician: SHERIF CRESPO Consults: Consults on Case 11/30/18 12:22 Tele-Health Consult ROUTINE Primary Care Provider: SHERIF CRESPO Allergies Allergies lisinopril Allergy (Verified 11/25/18 05:53) Hospital Summary - Hospital Course Hospital Course: Pt is 58 yo female with PMHx depression, COPD, DM II, neuropathy, chronic pain, HTN, and anxiety who was admitted after she said she couldn't sleep x 7d and exhibited manic behavior to the staff at [facility]. Several of her medicines were discontinued and she did sleep at the hospital with ativan 2mg. However, she is on chronic pain meds at home so we did try lunesta last night. She says she slept well on it and would like to go home on it; however, night staff says she did not sleep and her brother told me she was texting him "all night" on the med. UDS was neg aside from opiates. Labs were non acute. She did become significantly less manic within her first few hours after admission and by the time [facility] did their consult she was acting fairly normally for her. [facility] advised doing outpatient follow up and med adjustment. Pt did have episode of shaking, she thinks- she said nurse told her she was just rocking on the side of the bed. Never reported to me by RN. Pt is conversant this morning, slightly pressured speech as usual but is oriented. She would like to go home. She will be discharged to home on new medication regimen. Seems to be tolerating risperdal well. Discontinuing effexor and topamax as they have been started in the past few months. She did have an argument with her brother while I was in the room. He was trying to tell her something about her behavior, she did n't want him to talk, and he said, "that's it, don't call me" and left the room. - Vitals & Intake/Output Vital Signs: Vital Signs Temperature 98.1 F 12/02/18 11:00 Pulse Rate 74 12/02/18 11:00 Respiratory Rate 18 12/02/18 11:00 Blood Pressure 111/59 12/02/18 11:00 O2 Sat by Pulse Oximetry 96 12/02/18 11:00 Intake & Output: Intake & Output 11/30/18 12/01/18 12/02/18 12/03/18 11:59 11:59 11:59 11:59 Intake Total 2500 2320 Output Total 600 860 Balance 1900 1460 Weight 78.5 kg - Lab Result Diagrams: 12/02/18 06:25 12/02/18 06:25 Lab Results-Last 24 Hrs: Accuchecks Date 12/02/18 Date 12/01/18 Date 12/01/18 Time 07:30 Time 21:00 Time 17:04 Accucheck Value: 150 Accucheck Value: 170 Lab Results-Last 24 Hours 12/02/18 12/02/18 Range/Units 06:25 06:25 WBC 5.9 (4.0-10.5) K/mm3 RBC 3.72 L (4.1-5.4) M/mm3 Hgb 10.6 L (12.0-16.0) gm/dl Hct 34.2 L (35-47) % MCV 91.9 (78-100) fl MCH 28.4 (26-32) pg MCHC 31.0 L (32-36) g/dl RDW 19.9 H (11.5-14.0) % Plt Count 123 L D (150-450) K/mm3 MPV 10.3 H (6-9.5) fl Sodium 141 (137-145) mmol/L Potassium 3.9 (3.5-5.1) mmol/L Chloride 108 H (98-107) mmol/L Carbon Dioxide 26 (22-30) mmol/L Anion Gap 11.8 (5-15) MEQ/L BUN 20 H (7-17) mg/dL Creatinine 0.60 (0.52-1.04) mg/dL Estimated GFR > 60.0 ML/MIN Glucose 167 H (74-106) mg/dL Calcium 9.1 (8.4-10.2) mg/dL Micro Results-Entire Visit: Accuchecks Date 12/02/1812/01/18 Date 12/01/18 Time 07:30 Time 21:00 Time 17:04 Accucheck Value: 150 Accucheck Value: 170 - Radiology Exams Ordered Rad Exams-Entire Visit: Radiology Procedures Category Date Time Status CHEST 2 VIEWS (PA AND LAT) Routine Exams 11/30/18 12:25 Completed - Procedures and Test Procedures and Tests throughout Hospitalization: Therapy Orders & Screens 11/30/18 13:43 Smoking Cessation Education ONCE Comment: Diagnosis: exac copd, insomnia,liset Smoking Status: Current every day smoker How long have you smoked: 45 years Have you smoked in the past 12 months: Yes Approximately how many cigarettes per day: 20 Do you dip or chew tobacco: No 11/30/18 14:01 Respiratory Therapy Assessment DAILY Comment: Diagnosis: exac copd, insomnia,liset 11/30/18 14:02 Peak Expiratory Flow Rate ONCE Comment: Reason For Exam: Diagnosis: exac copd, insomnia,liset 12/01/18 16:23 EEG 41-60 Minutes (Normal) ONCE Comment: ok op if needed Reason For Exam: "shaking and flopping all over" Diagnosis: exac copd, insomnia,liset Discharge Exam General Appearance: no apparent distress, alert Neurologic Exam: oriented x 3, cooperative, other (mildly anxious. slightly pressured speech) Eye Exam: eyes nml inspection Neck Exam: normal inspection Respiratory Exam: normal breath sounds, lungs clear, No crackles/rales, No rhonchi, No wheezing Cardiovascular Exam: regular rate/rhythm, normal heart sounds, No murmur Gastrointestinal/Abdomen Exam: soft, normal bowel sounds, No tenderness, No distention, No mass, No guarding, No rebound Back Exam: normal inspection, No rash Skin Exam: normal color, warm, dry, No rash Final Diagnosis/Problem List - Final Discharge Diagnosis/Problem (1) Liset Current Visit: Yes Status: Resolved Assessment & Plan: She did have an MRI of the brain in Aug 2018 which had some mild abnormalities; she was supposed to f/u with neurology. Med changes: Start - Riseperdal and hydroxyzine. Stop - Effexor, Movantic, nortriptyline, seroquel, topamax, trazodone, prednisone. Continue - gabapentin (among other meds - see med rec sheet). (2) Insomnia Current Visit: Yes Status: Chronic Assessment & Plan: Will try hydroxyzine 50mg at night at home. RTC next week. Code(s): G47.00 - INSOMNIA, UNSPECIFIED (3) Seizure-like activity Current Visit: Yes Status: Acute Assessment & Plan: Pt is very concerned about it. Will do EEG outpatient. Code(s): R56.9 - UNSPECIFIED CONVULSIONS (4) Anxiety Current Visit: No Status: Chronic Assessment & Plan: home on risperdal. Code(s): F41.9 - ANXIETY DISORDER, UNSPECIFIED (5) COPD (chronic obstructive pulmonary disease) Current Visit: No Status: Chronic (6) Diabetes Current Visit: No Status: Chronic Code(s): E11.9 - TYPE 2 DIABETES MELLITUS WITHOUT COMPLICATIONS (7) Hypertension Current Visit: No Status: Chronic Code(s): I10 - ESSENTIAL (PRIMARY) HYPERTENSION - Discharge Disposition: Home, Self-Care Condition: Stable Prescriptions: New risperiDONE [Risperidone] 2 mg PO HS 10 Days #10 tablet Risperidone 1 mg [Risperdal 1 MG] 2 mg PO QHS tablet Hydroxyzine HCl 25 mg [Atarax 25 mg] 50 mg PO QHS PRN #60 tablet PRN Reason: Insomnia Continue Fluticasone/Vilanterol [Breo Ellipta 100-25 Mcg INH] 1 each IH DAILY Fluticasone Propionate [Flonase NASAL] 1 spray NS DAILY Metformin HCl [Glucophage] 1,000 mg PO BID Gabapentin [Neurontin] 900 mg PO TID Hydrocodone/APAP 10/325 mg [[place] 10/325 MG Tablet] 10 - 325 mg PO QID PRN PRN Reason: Pain Potassium Chloride 10 Meq Tab* [Klor Con 10 MEQ] 20 meq PO BID Cyclobenzaprine HCl 10 mg [Cyclobenzaprine 10 MG] 5 mg PO BID Hydralazine HCl 100 mg PO TID Sumatriptan Succinate [Imitrex] 100 mg PO DAILY PRN PRN PRN Reason: Headache Atorvastatin Calcium 40 mg PO DAILY Ergocalciferol (Vitamin D2) [Vitamin D2] 50,000 unit PO WEEKLY Loratadine [Allergy] 10 mg PO DAILY Albuterol Sulfate 2.5 mg IH TID PRN PRN Reason: Shortness Of Breath Aspirin EC 81 mg [Ecotrin 81 mg] 81 mg PO DAILY Losartan Potassium 50 mg [Cozaar 50 MG] 50 mg PO DAILY Albuterol 8 gm Mdi Hfa [Ventolin Hfa MDI] 108 mcg IH Q6HPRN PRN PRN Reason: Shortness Of Breath Metoprolol Succinate 50 mg [Toprol Xl 50 MG] 50 mg PO DAILY Olopatadine HCl Ophth [Patanol 1% OPHTHALMIC] 0.25 ml OP BID PRN #1 bottle PRN Reason: Allergies Ipratropium [place] 0.2 mg IH QID #120 unit Loperamide HCl 2 mg [Imodium 2 mg] 2 mg PO QID PRN #15 capsule PRN Reason: Diarrhea Discontinued Quetiapine Fumarate [Seroquel] 150 mg PO HS Nortriptyline HCl [Pamelor] 25 mg PO HS Trazodone HCl [Desyrel] 100 mg PO HS Promethazine HCl 25 mg [Phenergan 25 mg] 25 mg PO Q12H PRN PRN PRN Reason: nausea Naloxegol Oxalate [Movantik] 25 mg PO DAILY Topiramate 25 mg [Topamax 25 MG] 50 mg PO BID Venlafaxine HCl [Effexor] 75 mg PO DAILY Prednisone 20 mg [Deltasone 20 mg] 20 mg PO DAILY #17 tablet Nystatin 60 ml [Nystatin SUSPENSION 60 ML] 5 ml PO Q6HT #1 bottle Instructions: Anxiety, Adult (DC), Exacerbation of COPD (DC) Additional Instructions: If not sleeping, please call Dr. Crespo's office tomorrow. If any thoughts of self harm or harming someone else, go to ER [facility]. Follow up with: SHERIF CRESPO [Primary Care Provider] - 12/10/18 12:15 pm
[2018-12-03 17:19] LABS: Mercury,Blood <1 mcg/L (0-5)
== END 2018-12-02 13:10 | disposition home or self-care (01) ==
LOC: MED SURG 11:25
PROVIDERS: ADMIT Family Medicine; ATTEND Family Medicine
DX: F30.9 Manic episode, unspecified (principal); G47.00 Insomnia, unspecified; F41.9 Anxiety disorder, unspecified; J44.9 Chronic obstructive pulmonary disease, unspecified; E11.9 Type 2 diabetes mellitus without complications; I10 Essential (primary) hypertension; R51 Headache; M54.9 Dorsalgia, unspecified; Z79.899 Other long term (current) drug therapy; G89.29 Other chronic pain; F17.200 Nicotine dependence, unspecified, uncomplicated
CPT/HCPCS: 36415; 71046; 80048; 80053; 80307; 81001; 82140; 82175; 82300; 82962; 83655; 83825; 84439; 84443; 84480; 85027; 90791; 94640; 94760; G0378; Q3014; A9270-GY

== ENCOUNTER 2018-12-03 19:36 | Emergency (ER) | payer OTHER ==
--- NOTE | 2018-12-03 19:44 | ERPHSYRPT ---
- History of Present Illness Time Seen by Provider: 12/03/18 19:44 Source: patient, police Exam Limitations: no limitations Physician History: 58 y/o diabetic white female with h/o bipolar disorder, presents to ED after Dr. Crespo committed pt as an emergency psychiatric fdc. pts family stated to dr. Crespo pt is having visual and auditory halluicinations, paranoid behavior. she is a harm to herself. she knew her blood glucose was low at 50 but still took her insulin. pt filled out Emergency fdc forms. [facility] accepted pt but pt requires psych workup prior to transfer. pt brought into ED by police. pt denies suicidal and homicidal ideation Timing/Duration: today Severity of Symptoms-Max: moderate Severity of Symptoms-Current: moderate Context related to: living circumstances, other (psychiatric issues) Associated Symptoms: confused, hallucinating, paranoid Allergies/Adverse Reactions: lisinopril Allergy (Verified 12/03/18 19:58) Home Medications: Fluticasone/Vilanterol [Breo Ellipta 100-25 Mcg INH] 1 each IH DAILY 03/09/16 [ History] Fluticasone Propionate [Flonase NASAL] 1 spray NS DAILY 03/13/16 [History] Gabapentin [Neurontin] 900 mg PO TID 09/29/16 [History] Metformin HCl [Glucophage] 1,000 mg PO BID 09/29/16 [History] Hydrocodone/APAP 10/325 mg [[place] 10/325 MG Tablet] 10 - 325 mg PO QID PRN 11/04/16 [History] Potassium Chloride 10 Meq Tab* [Klor Con 10 MEQ] 20 meq PO BID 08/29/17 [ History] Cyclobenzaprine HCl 10 mg [Cyclobenzaprine 10 MG] 5 mg PO BID 02/20/18 [ History] Hydralazine HCl 100 mg PO TID 02/20/18 [History] Albuterol 8 gm Mdi Hfa [Ventolin Hfa MDI] 108 mcg IH Q6HPRN PRN 11/07/18 [ History] Albuterol Sulfate 2.5 mg IH TID PRN 11/07/18 [History] Aspirin EC 81 mg [Ecotrin 81 mg] 81 mg PO DAILY 11/07/18 [History] Atorvastatin Calcium 40 mg PO DAILY 11/07/18 [History] Ergocalciferol (Vitamin D2) [Vitamin D2] 50,000 unit PO WEEKLY 11/07/18 [History ] Loratadine [Allergy] 10 mg PO DAILY 11/07/18 [History] Losartan Potassium 50 mg [Cozaar 50 MG] 50 mg PO DAILY 11/07/18 [History] Metoprolol Succinate 50 mg [Toprol Xl 50 MG] 50 mg PO DAILY 11/07/18 [ History] Sumatriptan Succinate [Imitrex] 100 mg PO DAILY PRN PRN 11/07/18 [History] Hx Tetanus, Diphtheria Vaccination/Date Given: Yes Hx Influenza Vaccination/Date Given: Yes Hx Pneumococcal Vaccination/Date Given: Yes - Past Medical History Pertinent Past Medical History: Yes Neurological History: Migraines, TIA ENT History: No Pertinent History Cardiac History: Hypertension Respiratory History: COPD, Pneumonia, Sleep Apnea Endocrine Medical History: Diabetes Type II Musculoskeletal History: Osteoarthritis GI Medical History: No Pertinent History History: No Pertinent History Psycho-Social History: Anxiety, Depression Female Reproductive Disorders: No Pertinent History Other Medical History: depression, anxiety, viri - Past Surgical History Past Surgical History: Yes Neuro Surgical History: No Pertinent History Cardiac: No Pertinent History Respiratory: No Pertinent History Gastrointestinal: Cholecystectomy Genitourinary: No Pertinent History Musculoskeletal: No Pertinent History Female Surgical History: Section Other Surgical History: colonoscopy - Social History Smoking Status: Current every day smoker How long have you smoked: 45 years Exposure to second hand smoke: Yes Drug Use: none Patient Lives Alone: No - Review of Systems Constitutional: No Symptoms Eyes: No Symptoms Ears, Nose, & Throat: No Symptoms Respiratory: No Symptoms Cardiac: No Symptoms Abdominal/Gastrointestinal: No Symptoms Genitourinary Symptoms: No Symptoms Musculoskeletal: No Symptoms Skin: No Symptoms Neurological: No Symptoms Psychological: Hallucinations Endocrine: No Symptoms Hematologic/Lymphatic: No Symptoms Immunological/Allergic: No Symptoms All Other Systems: Reviewed and Negative - Nursing Vital Signs Nursing Vital Signs: Initial Vital Signs Temperature 98.4 F 12/03/18 19:48 Pulse Rate 98 H 12/03/18 19:48 Respiratory Rate 18 12/03/18 19:48 Blood Pressure 110/64 12/03/18 19:48 O2 Sat by Pulse Oximetry 95 12/03/18 19:48 Pain Scale Pain Intensity 0 - Physical Exam General Appearance: no apparent distress, alert, anxiety Eyes, Ears, Nose, Throat Exam: normal ENT inspection, moist mucous membranes Neck Exam: normal inspection, non-tender, supple, full range of motion Respiratory Exam: normal breath sounds, lungs clear, airway intact, No chest tenderness, No respiratory distress Cardiovascular Exam: regular rate/rhythm, normal heart sounds, normal peripheral pulses Gastrointestinal/Abdominal Exam: soft, normal bowel sounds, No tenderness, No guarding Extremities Exam: normal inspection, normal range of motion, No evidence of injury 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: alert, normal mood/affect, calm, head of marketing analytics II-XII nml as tested, oriented x 3 Appearance: appropriate appearance, impaired insight Behavior/Eye Contact/Speech: alert & cooperative, good eye contact Skin Exam: normal color, warm, dry SpO2 Interpretation: normal O2 Delivery: Room Air - Course Nursing assessment & vital signs reviewed: Yes EKG Interpreted by Me: RATE ([id number]), Sinus Rhythm, NORMAL AXIS, NORMAL INTERVALS, NORMAL QRS Ordered Tests: Active Orders 24 hr Category Date Time Status EKG-ER Only STAT Care 12/03/18 19:44 Active ACETAMINOPHEN Stat Lab 12/03/18 20:10 Completed CBC W DIFF Stat Lab 12/03/18 20:10 Completed CMP Stat Lab 12/03/18 20:10 Completed ETHYL ALCOHOL Stat Lab 12/03/18 20:10 Completed SALICYLATE Stat Lab 12/03/18 20:10 Completed UA W/RFX UR CULTURE Stat Lab 12/03/18 20:30 Completed Urine Triage Profile Stat Lab 12/03/18 20:30 Completed Lab/Rad Data: Laboratory Result Diagrams 12/03/18 20:10 12/03/18 20:10 Laboratory Results 12/03/18 12/03/18 12/03/18 Range/Units 20:30 20:30 20:10 WBC (4.0-10.5) K/mm3 RBC (4.1-5.4) M/mm3 Hgb (12.0-16.0) gm/dl Hct (35-47) % MCV (78-100) fl MCH (26-32) pg MCHC (32-36) g/dl RDW (11.5-14.0) % Plt Count (150-450) K/mm3 MPV (6-9.5) fl Gran % (36.0-66.0) % Eos # (Auto) (0-0.5) Absolute Lymphs (auto) (1.0-4.6) Absolute Monos (auto) (0.0-1.3) Lymphocytes % (24.0-44.0) % Monocytes % (0.0-12.0) % Eosinophils % (0.00-5.0) % Basophils % (0.0-0.4) % Absolute Granulocytes (1.4-6.9) Basophils # (0-0.4) Sodium 134 L (137-145) mmol/L Potassium 3.5 (3.5-5.1) mmol/L Chloride 96 L (98-107) mmol/L Carbon Dioxide 23 (22-30) mmol/L Anion Gap 17.4 H (5-15) MEQ/L BUN 18 H (7-17) mg/dL Creatinine 0.70 (0.52-1.04) mg/dL Estimated GFR > 60.0 ML/MIN Glucose 280 H (74-106) mg/dL Calcium 9.3 (8.4-10.2) mg/dL Total Bilirubin 1.20 (0.2-1.3) mg/dL AST 50 H (14-36) U/L ALT 119 H (0-35) U/L Alkaline Phosphatase 141 H (38-126) U/L Serum Total Protein 7.0 (6.3-8.2) g/dL Albumin 4.1 (3.5-5.0) g/dL Urine Color YELLOW (YELLOW) Urine Appearance CLEAR (CLEAR) Urine pH 7.0 (5-6) Ur Specific [place] 1.009 (1.005-1.025) Urine Protein NEGATIVE (Negative) Urine Ketones NEGATIVE (NEGATIVE) Urine Blood NEGATIVE (0-5) Irineo/ul Urine Nitrite NEGATIVE (NEGATIVE) Urine Bilirubin NEGATIVE (NEGATIVE) Urine Urobilinogen NEGATIVE (0-1) mg/dL Ur Leukocyte Esterase NEGATIVE (NEGATIVE) Urine WBC (Auto) 3-5 (0-5) /HPF Urine RBC (Auto) 0-2 (0-2) /HPF U Hyaline Cast (Auto) 3-5 (0-2) /LPF U Epithel Cells (Auto) RARE (FEW) /HPF Urine Bacteria (Auto) RARE (NEGATIVE) /HPF Other Casts (Auto) 5-10 (NEGATIVE) /LPF Urine Mucus (Auto) SLIGHT (NEGATIVE) /HPF Urine Culture Reflexed NO (NO) Urine Glucose NEGATIVE (NEGATIVE) mg/dL Salicylates < 1.0 L (2-20) mg/dL Urine Opiates Level POSITIVE (NEGATIVE) Ur Methadone NEGATIVE (NEGATIVE) Acetaminophen < 10 L (10-30) ug/ml Urine Barbiturates NEGATIVE (NEGATIVE) Ur Phencyclidine (PCP) NEGATIVE (NEGATIVE) Urine Amphetamine NEGATIVE (NEGATIVE) U Benzodiazepine Level NEGATIVE (NEGATIVE) Urine Cocaine NEGATIVE (NEGATIVE) Urine Marijuana (THC) NEGATIVE (NEGATIVE) Ethyl Alcohol < 10 (0-10) mg/dL 12/03/18 Range/Units 20:10 WBC 8.5 (4.0-10.5) K/mm3 RBC 3.92 L (4.1-5.4) M/mm3 Hgb 11.3 L (12.0-16.0) gm/dl Hct 34.7 L (35-47) % MCV 88.5 (78-100) fl MCH 28.8 (26-32) pg MCHC 32.6 (32-36) g/dl RDW 19.2 H (11.5-14.0) % Plt Count 138 L (150-450) K/mm3 MPV 10.6 H (6-9.5) fl Gran % 79.6 H (36.0-66.0) % Eos # (Auto) 0.03 (0-0.5) Absolute Lymphs (auto) 1.21 (1.0-4.6) Absolute Monos (auto) 0.47 (0.0-1.3) Lymphocytes % 14.3 L (24.0-44.0) % Monocytes % 5.6 (0.0-12.0) % Eosinophils % 0.4 (0.00-5.0) % Basophils % 0.1 (0.0-0.4) % Absolute Granulocytes 6.74 (1.4-6.9) Basophils # 0.01 (0-0.4) Sodium (137-145) mmol/L Potassium (3.5-5.1) mmol/L Chloride (98-107) mmol/L Carbon Dioxide (22-30) mmol/L Anion Gap (5-15) MEQ/L BUN (7-17) mg/dL Creatinine (0.52-1.04) mg/dL Estimated GFR ML/MIN Glucose (74-106) mg/dL Calcium (8.4-10.2) mg/dL Total Bilirubin (0.2-1.3) mg/dL AST (14-36) U/L ALT (0-35) U/L Alkaline Phosphatase (38-126) U/L Serum Total Protein (6.3-8.2) g/dL Albumin (3.5-5.0) g/dL Urine Color (YELLOW) Urine Appearance (CLEAR) Urine pH (5-6) Ur Specific [place] (1.005-1.025) Urine Protein (Negative) Urine Ketones (NEGATIVE) Urine Blood (0-5) Irineo/ul Urine Nitrite (NEGATIVE) Urine Bilirubin (NEGATIVE) Urine Urobilinogen (0-1) mg/dL Ur Leukocyte Esterase (NEGATIVE) Urine WBC (Auto) (0-5) /HPF Urine RBC (Auto) (0-2) /HPF U Hyaline Cast (Auto) (0-2) /LPF U Epithel Cells (Auto) (FEW) /HPF Urine Bacteria (Auto) (NEGATIVE) /HPF Other Casts (Auto) (NEGATIVE) /LPF Urine Mucus (Auto) (NEGATIVE) /HPF Urine Culture Reflexed (NO) Urine Glucose (NEGATIVE) mg/dL Salicylates (2-20) mg/dL Urine Opiates Level (NEGATIVE) Ur Methadone (NEGATIVE) Acetaminophen (10-30) ug/ml Urine Barbiturates (NEGATIVE) Ur Phencyclidine (PCP) (NEGATIVE) Urine Amphetamine (NEGATIVE) U Benzodiazepine Level (NEGATIVE) Urine Cocaine (NEGATIVE) Urine Marijuana (THC) (NEGATIVE) Ethyl Alcohol (0-10) mg/dL - Progress Progress: unchanged Progress Note: 12/03/18 21:58 [facility] has accepted pt Counseled pt/family regarding: lab results, diagnosis - Departure Departure Disposition: Transfer Clinical Impression: Hallucination, Paranoia, Self-harming behavior Condition: Stable Critical Care Time: No Referrals: SHERIF CRESPO [Primary Care Provider] -
[2018-12-03 20:23] LABS: BASOPHIL % 0.1 % (0.0-0.4); Basophil (Absolute #) 0.01 (0-0.4); Eosinophil % 0.4 % (0.00-5.0); Eosinophil (Absolute #) 0.03 (0-0.5); Granulocyte Absolute (ANC) 6.74 (1.4-6.9); Granulocytes % 79.6 % (36.0-66.0); Hematocrit 34.7 % (35-47); Hemoglobin 11.3 gm/dl (12.0-16.0); Lymphocyte (Absolute #) 1.21 (1.0-4.6); Lymphocytes % 14.3 % (24.0-44.0); Mean Cell Volume 88.5 fl (78-100); Mean Corpuscular Hemoglobin 28.8 pg (26-32); Mean Corpuscular Hgb Concent. 32.6 g/dl (32-36); Mean Platelet Volume 10.6 fl (6-9.5); Monocyte (Absolute #) 0.47 (0.0-1.3); Monocytes % 5.6 % (0.0-12.0); Platelet Count 138 K/mm3 (150-450); Red Blood Count 3.92 M/mm3 (4.1-5.4); Red Cell Distribution Width 19.2 % (11.5-14.0); White Blood Count 8.5 K/mm3 (4.0-10.5)
[2018-12-03 20:41] LABS: ALBUMIN 4.1 g/dL (3.5-5.0); ALKALINE PHOSPHATASE 141 U/L (38-126); ANION GAP 17.4 MEQ/L (5-15); BLOOD UREA NITROGEN 18 mg/dL (7-17); CHLORIDE 96 mmol/L (98-107); Calcium 9.3 mg/dL (8.4-10.2); Carbon Dioxide 23 mmol/L (22-30); Glucose 280 mg/dL (74-106); Potassium 3.5 mmol/L (3.5-5.1); SGOT/AST 50 U/L (14-36); SGPT/ALT 119 U/L (0-35); SODIUM 134 mmol/L (137-145)
[2018-12-03 20:42] LABS: ACETAMINOPHEN < 10 ug/ml (10-30); ETHYL ALCOHOL < 10 mg/dL (0-10); SALICYLATE < 1.0 mg/dL (2-20)
[2018-12-03 21:04] LABS: Appearance CLEAR (CLEAR); Bacteria RARE /HPF (NEGATIVE); Bilirubin NEGATIVE (NEGATIVE); Blood NEGATIVE Ery/ul (0-5); Epithelial Cells RARE /HPF (FEW); Glucose NEGATIVE (NEGATIVE); Ketones NEGATIVE (NEGATIVE); Leukocyte Esterase NEGATIVE (NEGATIVE); Mucus SLIGHT /HPF (NEGATIVE); Nitrite NEGATIVE (NEGATIVE); Protein,Urine Dip NEGATIVE (Negative); RBC 0-2 /HPF (0-2); Specific Gravity 1.009 (1.005-1.025); Urobilinogen NEGATIVE mg/dL (0-1)
[2018-12-03 21:19] LABS: Amphetamine,Urine NEGATIVE (NEGATIVE); Barbiturate,Urine NEGATIVE (NEGATIVE); Benzodiazepine,Urine NEGATIVE (NEGATIVE); Cocaine,Urine NEGATIVE (NEGATIVE); Methadone,Urine NEGATIVE (NEGATIVE); Opiate,Urine POSITIVE (NEGATIVE); PCP,Urine NEGATIVE (NEGATIVE); THC,Urine NEGATIVE (NEGATIVE)
[2018-12-03 22:46] VITALS: O2SAT 95
[2018-12-03 22:59] VITALS: BP 110/77; PULSE 78
== END 2018-12-03 23:30 | disposition short-term general hospital (02) ==
LOC: ED 19:36
DX: R44.0 Auditory hallucinations (principal); R44.1 Visual hallucinations; F22 Delusional disorders; F91.8 Other conduct disorders; E11.9 Type 2 diabetes mellitus without complications; I10 Essential (primary) hypertension; F31.9 Bipolar disorder, unspecified; Z79.891 Long term (current) use of opiate analgesic; Z79.899 Other long term (current) drug therapy; Z79.84 Long term (current) use of oral hypoglycemic drugs; Z79.4 Long term (current) use of insulin
CPT/HCPCS: 36415; 80053; 80307; 81001; 85025; 93005; 99285; G0481; G0480

== ENCOUNTER 2018-12-19 15:47 | Emergency (ER) | payer OTHER ==
--- NOTE | 2018-12-19 16:00 | ERPHSYRPT ---
- History of Present Illness Time Seen by Provider: 12/19/18 16:00 Source: patient Exam Limitations: no limitations Patient Subjective Stated Complaint: pt states "I have COPD, my sugar has been high, I am on steroids and an keflex right now but today I have had some difficulty breathing." Triage Nursing Assessment: Pt presented throught the front, alert and orietned X 3, skin pwd. pt ambulates with an upright steady gait, able to speak in clear full sentences, tachypneic. Physician History: 58 y/o diabetic white female with known copd and recent dx of pneumonia and still smokes cigarettes on day 4 of keflex antibx and steroids, presents with wheezing and mild increase in soa. pt also concerned her blood glucose has been elevated since the steroids. pt denies cp and denies soa. pt on oxygen at home. Timing/Duration: today Severity of Dyspnea-Max: mild Severity of Dyspnea-Current: mild Possible Cause: occasional episodes Associated Symptoms: anxiety, wheezing, No chest pain/discomfort, No hemoptysis Allergies/Adverse Reactions: lisinopril Allergy (Verified 12/03/18 19:58) Home Medications: Fluticasone/Vilanterol [Breo Ellipta 100-25 Mcg INH] 1 each IH DAILY 03/09/16 [ History] Fluticasone Propionate [Flonase NASAL] 1 spray NS DAILY 03/13/16 [History] Gabapentin [Neurontin] 900 mg PO TID 09/29/16 [History] Metformin HCl [Glucophage] 1,000 mg PO BID 09/29/16 [History] Hydrocodone/APAP 10/325 mg [[place] 10/325 MG Tablet] 10 - 325 mg PO QID PRN 11/04/16 [History] Potassium Chloride 10 Meq Tab* [Klor Con 10 MEQ] 20 meq PO BID 08/29/17 [ History] Cyclobenzaprine HCl 10 mg [Cyclobenzaprine 10 MG] 5 mg PO BID 02/20/18 [ History] Hydralazine HCl 100 mg PO TID 02/20/18 [History] Albuterol 8 gm Mdi Hfa [Ventolin Hfa MDI] 108 mcg IH Q6HPRN PRN 11/07/18 [ History] Albuterol Sulfate 2.5 mg IH TID PRN 11/07/18 [History] Atorvastatin Calcium 40 mg PO DAILY 11/07/18 [History] Ergocalciferol (Vitamin D2) [Vitamin D2] 50,000 unit PO WEEKLY 11/07/18 [History ] Loratadine [Allergy] 10 mg PO DAILY 11/07/18 [History] Losartan Potassium 50 mg [Cozaar 50 MG] 50 mg PO DAILY 11/07/18 [History] Metoprolol Succinate 50 mg [Toprol Xl 50 MG] 50 mg PO DAILY 11/07/18 [ History] Sumatriptan Succinate [Imitrex] 100 mg PO DAILY PRN PRN 11/07/18 [History] Hx Tetanus, Diphtheria Vaccination/Date Given: Yes Hx Influenza Vaccination/Date Given: Yes Hx Pneumococcal Vaccination/Date Given: Yes Immunizations Up to Date: Yes - Review of Systems Constitutional: No Symptoms Eyes: No Symptoms Ears, Nose, & Throat: No Symptoms Respiratory: Dyspnea (mild), Wheezing Cardiac: No Chest Pain Abdominal/Gastrointestinal: No Symptoms Genitourinary Symptoms: No Symptoms Musculoskeletal: No Symptoms Skin: No Symptoms Neurological: No Symptoms Psychological: Anxiety Endocrine: No Symptoms Hematologic/Lymphatic: No Symptoms Immunological/Allergic: No Symptoms All Other Systems: Reviewed and Negative - Past Medical History Pertinent Past Medical History: Yes Neurological History: Migraines, TIA ENT History: No Pertinent History Cardiac History: Hypertension Respiratory History: COPD, Pneumonia, Sleep Apnea Endocrine Medical History: Diabetes Type II Musculoskeletal History: Osteoarthritis GI Medical History: No Pertinent History History: No Pertinent History Psycho-Social History: Anxiety, Depression Female Reproductive Disorders: No Pertinent History Other Medical History: depression, anxiety, viri - Past Surgical History Past Surgical History: Yes Neuro Surgical History: No Pertinent History Cardiac: No Pertinent History Respiratory: No Pertinent History Gastrointestinal: Cholecystectomy Genitourinary: No Pertinent History Musculoskeletal: No Pertinent History Female Surgical History: Section Other Surgical History: colonoscopy - Social History Smoking Status: Current every day smoker How long have you smoked: years Exposure to second hand smoke: Yes Drug Use: none Patient Lives Alone: Yes - Female History Hx Last Menstrual Period: years Hx Now: No - Nursing Vital Signs Nursing Vital Signs: Initial Vital Signs Temperature 98.2 F 12/19/18 15:48 Pulse Rate 102 H 12/19/18 15:48 Respiratory Rate 24 12/19/18 15:48 Blood Pressure 151/69 12/19/18 15:48 O2 Sat by Pulse Oximetry 97 12/19/18 15:48 Pain Scale Pain Intensity 4 - Physical Exam General Appearance: no apparent distress, alert, anxiety Eye Exam: PERRL/EOMI Ears, Nose, Throat Exam: hearing grossly normal, normal ENT inspection, normal pharynx Neck Exam: normal inspection, non-tender, supple, full range of motion Respiratory Exam: wheezing (mild bilat exp wheezing at bases), No chest tenderness, No respiratory distress Cardiovascular/Chest Exam: normal heart sounds, regular rate/rhythm, normal peripheral pulses Abdominal/Gastrointestinal Exam: soft, normal bowel sounds, No tenderness, No guarding Rectal Exam: not done Extremity Exam: non-tender, normal range of motion, normal inspection, normal capillary refill Neurologic Exam: alert, oriented x 3, cooperative, correctional cook II-XII nml as tested, nml station & gait Skin Exam: normal color, warm, dry Lymphatic Exam: No adenopathy SpO2 Interpretation: normal SpO2: 97 O2 Delivery: Room Air Ordered Tests: Active Orders 24 hr Category Date Time Status Change Number Operator STAT Care 12/19/18 16:09 Active IV Insertion STAT Care 12/19/18 16:07 Active CHEST 1 VIEW (PORTABLE) Stat Exams 12/19/18 16:53 Completed BMP Stat Lab 12/19/18 16:00 Completed Peak Expiratory Flow Rate ONCE RT 12/19/18 16:23 Active Respiratory Therapy Assessment DAILY RT 12/19/18 16:24 Active Medication Summary Discontinued Medications Generic Name Dose Route Start Last Admin Trade Name Comfort PRN Reason Stop Dose Admin Albuterol/Ipratropium Confirm 12/19/18 16:16 Duoneb 0.5-3 Mg/3 Ml Neb Administered 12/19/18 16:17 Dose 3 ml IH .STK-MED ONE Albuterol/Ipratropium 3 ml 12/19/18 16:22 12/19/18 16:20 Duoneb 0.5-3 Mg/3 Ml Neb IH 12/19/18 16:23 3 ml STAT ONE Administration Ceftriaxone Sodium/Dextrose 1 g in 50 mls @ 100 mls/hr 12/19/18 16:07 16:41 Rocephin 1 Gm-D5w 50 Ml Bag IV 12/19/18 16:36 Infused STAT STA Infusion Ceftriaxone Sodium/Dextrose Confirm 12/19/18 16:13 Rocephin 1 Gm-D5w 50 Ml Bag Administered 12/19/18 16:14 Dose 1 g in 50 mls @ ud IV .STK-MED ONE Lab/Rad Data: Laboratory Result Diagrams 12/19/18 16:00 Laboratory Results 12/19/18 Range/Units 16:00 Sodium 142 (137-145) mmol/L Potassium 4.0 (3.5-5.1) mmol/L Chloride 106 (98-107) mmol/L Carbon Dioxide 23 (22-30) mmol/L Anion Gap 17.0 H (5-15) MEQ/L BUN 16 (7-17) mg/dL Creatinine 0.59 (0.52-1.04) mg/dL Estimated GFR > 60.0 ML/MIN Glucose 254 H (74-106) mg/dL Calcium 9.8 (8.4-10.2) mg/dL - Progress Progress: improved, re-examined Air Movement: good Progress Note: 12/19/18 16:41 pt well known to our ED. pt has sig anxiety and psych issues. however, she also has copd and tx for pneumonia recently. blood glucose is elevated but not emergent. cxr no acute process. pt oxygen sat 98% on room air. 12/19/18 17:20 Blood Culture(s) Obtained: No Antibiotics given: Yes Counseled pt/family regarding: lab results, diagnosis, need for follow-up, rad results - Departure Departure Disposition: Home Clinical Impression: Wheezing, Anxiety Condition: Stable Critical Care Time: No Referrals: SHERIF JACKSON [Primary Care Provider] - Additional Instructions: continue medications as prescribed. follow up with your primary doctor for further management. continue your medications as prescribed
[2018-12-19] MEDS ORDERED: ROCEPHIN 1 Gm-D5w 50 ml Bag** 1 G/50 ML IVPB IV STA (16:07)
[2018-12-19] MEDS ORDERED: ROCEPHIN 1 Gm-D5w 50 ml Bag** 1 G/50 ML IVPB IV ONE (16:13)
[2018-12-19] MEDS ORDERED: DUONEB 0.5-3 MG/3 ml Neb IH ONE ×2 (16:16→16:22)
[2018-12-19 16:33] LABS: BLOOD UREA NITROGEN 16 mg/dL (7-17); CHLORIDE 106 mmol/L (98-107); Calcium 9.8 mg/dL (8.4-10.2); Carbon Dioxide 23 mmol/L (22-30); Creatinine 1 0.59 mg/dL (0.52-1.04); Glucose 254 mg/dL (74-106); SODIUM 142 mmol/L (137-145)
[2018-12-19 16:43] VITALS: BP 107/66
[2018-12-19 17:01] VITALS: PULSE 84
--- NOTE | 2018-12-19 17:03 | XRAY ---
Indication: Short of breath. Comparison: November 30, 2018. Portable apical lordotic chest again demonstrates normal heart, lungs, and bony thorax.
[2018-12-19 17:23] VITALS: O2SAT 97
== END 2018-12-19 17:41 | disposition home or self-care (01) ==
LOC: ED 15:47
DX: J44.9 Chronic obstructive pulmonary disease, unspecified (principal); F41.9 Anxiety disorder, unspecified; Z72.0 Tobacco use; Z79.899 Other long term (current) drug therapy; E11.9 Type 2 diabetes mellitus without complications; Z79.4 Long term (current) use of insulin; I10 Essential (primary) hypertension; Z86.73 Personal history of transient ischemic attack (TIA), and cerebral infarction without residual deficits; G47.30 Sleep apnea, unspecified
CPT/HCPCS: 36000; 36415; 71045; 80048; 93041; 94150; 94640; 96365; 96374; 99284; J0696; A9270-GY

== ENCOUNTER 2020-02-09 20:36 | Emergency (ER) | payer OTHER ==
--- NOTE | 2020-02-09 20:40 | ERPHSYRPT ---
- History of Present Illness Time Seen by Provider: 02/09/20 20:40 Source: patient Exam Limitations: clinical condition Physician History: This is an obese 59-year-old white female with a history of hypertension, sleep apnea, COPD on home oxygen therapy, renal failure, diabetes who continues to smoke daily and presents with shortness of air that is worse today. Patient also has a history of anxiety and depression. Patient reports that she was taken off of her anxiety medications relatively recently. Patient denies chest pain. She denies fever. She denies abdominal pain. She denies nausea vomiting diarrhea. Patient told the nurse that she has been smoking marijuana to help her calm down over the last few days. Timing/Duration: today Activities at Onset: emotional stress Severity of Dyspnea-Max: moderate Severity of Dyspnea-Current: moderate Possible Cause: frequent episodes Associated Symptoms: anxiety, cough Allergies/Adverse Reactions: lisinopril Allergy (Verified 12/03/18 19:58) Home Medications: Fluticasone/Vilanterol [Breo Ellipta 100-25 Mcg INH] 1 each IH DAILY 03/09/16 [History] Fluticasone Propionate [Flonase NASAL] 1 spray NS DAILY 03/13/16 [History] Gabapentin [Neurontin] 900 mg PO TID 09/29/16 [History] Metformin HCl [Glucophage] 1,000 mg PO BID 09/29/16 [History] Potassium Chloride 10 Meq Tab* [Klor Con 10 MEQ] 20 meq PO BID 08/29/17 [History] Cyclobenzaprine HCl 10 mg [Cyclobenzaprine 10 MG] 5 mg PO BID 02/20/18 [History] Hydralazine HCl 100 mg PO TID 02/20/18 [History] Albuterol 8 gm Mdi Hfa [Ventolin Hfa MDI] 108 mcg IH Q6HPRN PRN 11/07/18 [History] Albuterol Sulfate 2.5 mg IH TID PRN 11/07/18 [History] Atorvastatin Calcium 80 mg PO DAILY 11/07/18 [History] Ergocalciferol (Vitamin D2) [Vitamin D2] 50,000 unit PO WEEKLY 11/07/18 [History] Loratadine [Allergy] 10 mg PO DAILY 11/07/18 [History] Losartan Potassium 50 mg [Cozaar 50 MG] 100 mg PO DAILY 11/07/18 [History] Metoprolol Succinate 50 mg [Toprol Xl 50 MG] 50 mg PO DAILY 11/07/18 [History] Sumatriptan Succinate [Imitrex] 100 mg PO DAILY PRN PRN 11/07/18 [History] Insulin Lispro [Admelog Solostar] 10 units SQ DAILY 02/09/20 [History] Lacosamide [Vimpat] 1 tab PO DAILY 02/09/20 [History] Omeprazole 1 cap PO DAILY 02/09/20 [History] Hx Tetanus, Diphtheria Vaccination/Date Given: Yes Hx Influenza Vaccination/Date Given: Yes Hx Pneumococcal Vaccination/Date Given: Yes Travel Risk - International Travel Have you traveled outside of the country in past 3 weeks: No - Coronavirus Screening Are you exhibiting any of the following symptoms?: Yes Symptoms: Shortness of Breath - Review of Systems Constitutional: No Symptoms Eyes: No Symptoms Ears, Nose, & Throat: No Symptoms Respiratory: Dyspnea Cardiac: No Symptoms Abdominal/Gastrointestinal: No Symptoms Genitourinary Symptoms: No Symptoms Musculoskeletal: No Symptoms Skin: No Symptoms Neurological: No Symptoms Psychological: No Symptoms Endocrine: No Symptoms Hematologic/Lymphatic: No Symptoms Immunological/Allergic: No Symptoms All Other Systems: Reviewed and Negative - Past Medical History Pertinent Past Medical History: Yes Neurological History: Migraines, TIA ENT History: No Pertinent History Cardiac History: Hypertension Respiratory History: COPD, Pneumonia, Sleep Apnea Endocrine Medical History: Diabetes Type II Musculoskeletal History: Osteoarthritis GI Medical History: No Pertinent History History: No Pertinent History Psycho-Social History: Anxiety, Depression Female Reproductive Disorders: No Pertinent History Other Medical History: depression, anxiety, viri - Past Surgical History Past Surgical History: Yes Neuro Surgical History: No Pertinent History Cardiac: No Pertinent History Respiratory: No Pertinent History Gastrointestinal: Cholecystectomy Genitourinary: No Pertinent History Musculoskeletal: No Pertinent History Female Surgical History: Section Other Surgical History: colonoscopy - Social History Smoking Status: Current every day smoker How long have you smoked: years Exposure to second hand smoke: Yes Drug Use: none Patient Lives Alone: Yes - Nursing Vital Signs Nursing Vital Signs: Initial Vital Signs Temperature 98.2 F 02/09/20 20:37 Pulse Rate 70 02/09/20 20:37 Respiratory Rate 30 H 02/09/20 20:37 Blood Pressure 118/99 02/09/20 20:37 O2 Sat by Pulse Oximetry 99 02/09/20 20:37 Pain Scale Pain Intensity 0 - Physical Exam General Appearance: mild distress, alert, anxiety Eye Exam: PERRL/EOMI, eyes nml inspection Ears, Nose, Throat Exam: hearing grossly normal, normal ENT inspection, normal pharynx Neck Exam: normal inspection, non-tender, supple, full range of motion Respiratory Exam: normal breath sounds, lungs clear, airway intact, No chest tenderness, No respiratory distress Cardiovascular/Chest Exam: normal heart sounds, regular rate/rhythm, murmur Abdominal/Gastrointestinal Exam: soft, normal bowel sounds, No tenderness, No guarding Extremity Exam: non-tender, normal range of motion, normal inspection Neurologic Exam: alert, oriented x 3, cooperative, cross tie turner II-XII nml as tested, normal mood/affect, nml cerebellar function, nml station & gait, sensation nml Skin Exam: normal color, warm, dry Lymphatic Exam: No adenopathy SpO2 Interpretation: normal - Course Nursing assessment & vital signs reviewed: Yes EKG Interpreted by Me: RATE (76), Sinus Rhythm, NORMAL AXIS, NORMAL INTERVALS, NORMAL QRS, Other (No acute ischemic changes on today's EKG. Comparison EKG 12/30/2018. There is no significant changes compared to that EKG.) Ordered Tests: Active Orders 24 hr Category Date Time Status Crossing Tender STAT Care 02/09/20 20:42 Active EKG-ER Only STAT Care 02/09/20 20:40 Active IV Insertion STAT Care 02/09/20 20:40 Active Pulse Oximetry (ED) STAT Care 02/09/20 20:40 Active CHEST 1 VIEW (PORTABLE) Stat Exams 02/09/20 20:41 Taken BLOOD CULTURE Stat Lab 02/09/20 21:24 Received CBC W DIFF Stat Lab 02/09/20 20:49 Completed CMP Stat Lab 02/09/20 20:49 Completed Lactic Acid Stat Lab 02/09/20 20:40 Completed NT PRO BNP Stat Lab 02/09/20 20:49 Completed PROTIME WITH INR Stat Lab 02/09/20 21:24 Completed TROPONIN Q3H Lab 02/09/20 20:49 Completed TROPONIN Q3H Lab 02/09/20 23:45 Ordered TROPONIN Q3H Lab 02/10/20 02:45 Ordered TROPONIN Q3H Lab 02/10/20 05:45 Ordered TROPONIN Q3H Lab 02/10/20 08:45 Ordered UA W/RFX UR CULTURE Stat Lab 02/09/20 21:25 Completed Urine Triage Profile Stat Lab 02/09/20 21:25 Completed Medication Summary Generic Name Dose Route Start Last Admin Trade Name Freq PRN Reason Stop Dose Admin Sodium Chloride 1,000 mls @ 999 mls/hr 02/09/20 22:00 02/09/20 22:04 Sodium Chloride 0.9% 1000 Ml IV 02/09/20 23:00 999 mls/hr .Q1H1M STA Administration Discontinued Medications Generic Name Dose Route Start Last Admin Trade Name Freq PRN Reason Stop Dose Admin Sodium Chloride Confirm 02/09/20 22:03 Sodium Chloride 0.9% 1000 Ml Administered 02/09/20 22:04 Dose 1,000 mls @ ud .ROUTE .STK-MED ONE Lorazepam 1 mg 02/09/20 20:59 02/09/20 21:25 Ativan 2 Mg/1 Ml Vial IV 02/09/20 21:00 1 mg STAT ONE Administration Lorazepam Confirm 02/09/20 21:25 Ativan 2 Mg/1 Ml Vial Administered 02/09/20 21:26 Dose 2 mg .ROUTE .STK-MED ONE Lab/Rad Data: Laboratory Result Diagrams 02/09/20 20:49 02/09/20 20:49 Laboratory Results 02/09/20 02/09/20 02/09/20 Range/Units 21:25 21:25 21:24 WBC (4.0-10.5) K/mm3 RBC (4.1-5.4) M/mm3 Hgb (12.0-16.0) gm/dl Hct (35-47) % MCV (78-100) fl MCH (26-32) pg MCHC (32-36) g/dl RDW (11.5-14.0) % Plt Count (150-450) K/mm3 MPV (7.5-11.0) fl Gran % (36.0-66.0) % Eos # (Auto) (0-0.5) Absolute Lymphs (auto) (1.0-4.6) Absolute Monos (auto) (0.0-1.3) Lymphocytes % (24.0-44.0) % Monocytes % (0.0-12.0) % Eosinophils % (0.00-5.0) % Basophils % (0.0-0.4) % Absolute Granulocytes (1.4-6.9) Basophils # (0-0.4) PT (9.95-12.35) SECONDS INR (0.8-3.0) Sodium (137-145) mmol/L Potassium (3.5-5.1) mmol/L Chloride (98-107) mmol/L Carbon Dioxide (22-30) mmol/L Anion Gap (5-15) MEQ/L BUN (7-17) mg/dL Creatinine (0.52-1.04) mg/dL Estimated GFR ML/MIN Glucose (74-106) mg/dL Lactic Acid (0.4-2.0) Calcium (8.4-10.2) mg/dL Total Bilirubin (0.2-1.3) mg/dL AST (14-36) U/L ALT (0-35) U/L Alkaline Phosphatase (38-126) U/L Troponin I (0.000-0.034) ng/mL NT-Pro-B Natriuret Pep (0-900) pg/mL Serum Total Protein (6.3-8.2) g/dL Albumin (3.5-5.0) g/dL Urine Color YELLOW (YELLOW) Urine Appearance CLEAR (CLEAR) Urine pH 5.0 (5-6) Ur Specific [place] 1.023 (1.005-1.025) Urine Protein NEGATIVE (Negative) Urine Ketones NEGATIVE (NEGATIVE) Urine Blood NEGATIVE (0-5) Irineo/ul Urine Nitrite NEGATIVE (NEGATIVE) Urine Bilirubin NEGATIVE (NEGATIVE) Urine Urobilinogen 2 (0-1) mg/dL Ur Leukocyte Esterase NEGATIVE (NEGATIVE) Urine WBC (Auto) 0-2 (0-5) /HPF Urine RBC (Auto) NONE (0-2) /HPF U Epithel Cells (Auto) RARE (FEW) /HPF Urine Bacteria (Auto) RARE (NEGATIVE) /HPF Urine Mucus (Auto) SLIGHT (NEGATIVE) /HPF Urine Culture Reflexed NO (NO) Urine Glucose NEGATIVE (NEGATIVE) mg/dL Urine Opiates Level NEGATIVE (NEGATIVE) Ur Methadone NEGATIVE (NEGATIVE) Urine Barbiturates NEGATIVE (NEGATIVE) Ur Phencyclidine (PCP) NEGATIVE (NEGATIVE) Urine Amphetamine NEGATIVE (NEGATIVE) U Benzodiazepine Level POSITIVE (NEGATIVE) Urine Cocaine NEGATIVE (NEGATIVE) Urine Marijuana (THC) POSITIVE (NEGATIVE) Influenza Type A Ag NEGATIVE (NEGATIVE) Influenza Type B Ag NEGATIVE (NEGATIVE) RSV (PCR) NEGATIVE (Negative) 02/09/20 02/09/20 02/09/20 Range/Units 21:24 20:49 20:49 WBC (4.0-10.5) K/mm3 RBC (4.1-5.4) M/mm3 Hgb (12.0-16.0) gm/dl Hct (35-47) % MCV (78-100) fl MCH (26-32) pg MCHC (32-36) g/dl RDW (11.5-14.0) % Plt Count (150-450) K/mm3 MPV (7.5-11.0) fl Gran % (36.0-66.0) % Eos # (Auto) (0-0.5) Absolute Lymphs (auto) (1.0-4.6) Absolute Monos (auto) (0.0-1.3) Lymphocytes % (24.0-44.0) % Monocytes % (0.0-12.0) % Eosinophils % (0.00-5.0) % Basophils % (0.0-0.4) % Absolute Granulocytes (1.4-6.9) Basophils # (0-0.4) PT 11.3 (9.95-12.35) SECONDS INR 1.00 (0.8-3.0) Sodium 142 (137-145) mmol/L Potassium 4.0 (3.5-5.1) mmol/L Chloride 110 H (98-107) mmol/L Carbon Dioxide 21 L (22-30) mmol/L Anion Gap 14.0 (5-15) MEQ/L BUN 20 H (7-17) mg/dL Creatinine 0.65 (0.52-1.04) mg/dL Estimated GFR > 60.0 ML/MIN Glucose 105 (74-106) mg/dL Lactic Acid (0.4-2.0) Calcium 9.0 (8.4-10.2) mg/dL Total Bilirubin 0.40 (0.2-1.3) mg/dL AST 26 (14-36) U/L ALT 18 (0-35) U/L Alkaline Phosphatase 60 (38-126) U/L Troponin I < 0.012 (0.000-0.034) ng/mL NT-Pro-B Natriuret Pep 482 (0-900) pg/mL Serum Total Protein 7.5 (6.3-8.2) g/dL Albumin 4.7 (3.5-5.0) g/dL Urine Color (YELLOW) Urine Appearance (CLEAR) Urine pH (5-6) Ur Specific [place] (1.005-1.025) Urine Protein (Negative) Urine Ketones (NEGATIVE) Urine Blood (0-5) Irineo/ul Urine Nitrite (NEGATIVE) Urine Bilirubin (NEGATIVE) Urine Urobilinogen (0-1) mg/dL Ur Leukocyte Esterase (NEGATIVE) Urine WBC (Auto) (0-5) /HPF Urine RBC (Auto) (0-2) /HPF U Epithel Cells (Auto) (FEW) /HPF Urine Bacteria (Auto) (NEGATIVE) /HPF Urine Mucus (Auto) (NEGATIVE) /HPF Urine Culture Reflexed (NO) Urine Glucose (NEGATIVE) mg/dL Urine Opiates Level (NEGATIVE) Ur Methadone (NEGATIVE) Urine Barbiturates (NEGATIVE) Ur Phencyclidine (PCP) (NEGATIVE) Urine Amphetamine (NEGATIVE) U Benzodiazepine Level (NEGATIVE) Urine Cocaine (NEGATIVE) Urine Marijuana (THC) (NEGATIVE) Influenza Type A Ag (NEGATIVE) Influenza Type B Ag (NEGATIVE) RSV (PCR) (Negative) 02/09/20 02/09/20 Range/Units 20:49 20:40 WBC 12.6 H (4.0-10.5) K/mm3 RBC 3.91 L (4.1-5.4) M/mm3 Hgb 12.0 (12.0-16.0) gm/dl Hct 37.1 (35-47) % MCV 94.9 (78-100) fl MCH 30.7 (26-32) pg MCHC 32.3 (32-36) g/dl RDW 15.6 H (11.5-14.0) % Plt Count 263 (150-450) K/mm3 MPV 11.1 H (7.5-11.0) fl Gran % 57.3 (36.0-66.0) % Eos # (Auto) 0.10 (0-0.5) Absolute Lymphs (auto) 4.20 (1.0-4.6) Absolute Monos (auto) 1.05 (0.0-1.3) Lymphocytes % 33.4 (24.0-44.0) % Monocytes % 8.3 (0.0-12.0) % Eosinophils % 0.8 (0.00-5.0) % Basophils % 0.2 (0.0-0.4) % Absolute Granulocytes 7.21 H (1.4-6.9) Basophils # 0.02 (0-0.4) PT (9.95-12.35) SECONDS INR (0.8-3.0) Sodium (137-145) mmol/L Potassium (3.5-5.1) mmol/L Chloride (98-107) mmol/L Carbon Dioxide (22-30) mmol/L Anion Gap (5-15) MEQ/L BUN (7-17) mg/dL Creatinine (0.52-1.04) mg/dL Estimated GFR ML/MIN Glucose (74-106) mg/dL Lactic Acid 2.6 H (0.4-2.0) Calcium (8.4-10.2) mg/dL Total Bilirubin (0.2-1.3) mg/dL AST (14-36) U/L ALT (0-35) U/L Alkaline Phosphatase (38-126) U/L Troponin I (0.000-0.034) ng/mL NT-Pro-B Natriuret Pep (0-900) pg/mL Serum Total Protein (6.3-8.2) g/dL Albumin (3.5-5.0) g/dL Urine Color (YELLOW) Urine Appearance (CLEAR) Urine pH (5-6) Ur Specific [place] (1.005-1.025) Urine Protein (Negative) Urine Ketones (NEGATIVE) Urine Blood (0-5) Irineo/ul Urine Nitrite (NEGATIVE) Urine Bilirubin (NEGATIVE) Urine Urobilinogen (0-1) mg/dL Ur Leukocyte Esterase (NEGATIVE) Urine WBC (Auto) (0-5) /HPF Urine RBC (Auto) (0-2) /HPF U Epithel Cells (Auto) (FEW) /HPF Urine Bacteria (Auto) (NEGATIVE) /HPF Urine Mucus (Auto) (NEGATIVE) /HPF Urine Culture Reflexed (NO) Urine Glucose (NEGATIVE) mg/dL Urine Opiates Level (NEGATIVE) Ur Methadone (NEGATIVE) Urine Barbiturates (NEGATIVE) Ur Phencyclidine (PCP) (NEGATIVE) Urine Amphetamine (NEGATIVE) U Benzodiazepine Level (NEGATIVE) Urine Cocaine (NEGATIVE) Urine Marijuana (THC) (NEGATIVE) Influenza Type A Ag (NEGATIVE) Influenza Type B Ag (NEGATIVE) RSV (PCR) (Negative) - Progress Progress: improved, re-examined Air Movement: good Progress Note: 02/09/20 22:10 Chest x-ray reveals no evidence of any acute pulmonary process 02/09/20 22:25 Medical decision making: This patient has been taking steroids for the last few days. She has been seeing her electronic device repairer and he prescribed steroids for her last or Monday prior to this evaluation. That is likely the cause of her leukocytosis. Patient does does not have any indication that there is an infection present. Once she is rehydrated we will send her home and she can follow-up with her primary care physician. Blood Culture(s) Obtained: No Antibiotics given: No Counseled pt/family regarding: lab results, diagnosis, need for follow-up, rad results - Departure Departure Disposition: Home Clinical Impression: COPD exacerbation, Anxiety Condition: Stable Critical Care Time: No Referrals: SHERIF JACKSON [Primary Care Provider] - Instructions: Chronic Obstructive Pulmonary Disease Additional Instructions: Continue your steroids and other medication as prescribed. Follow-up with your primary care physician tomorrow for further management of your issues
[2020-02-09 20:53] LABS: Absolute Neutrophil Ct (ANC) 7.21 (1.4-6.9); BASOPHIL % 0.2 % (0.0-0.4); Basophil (Absolute #) 0.02 (0-0.4); Eosinophil % 0.8 % (0.00-5.0); Hematocrit 37.1 % (35-47); Lymphocytes % 33.4 % (24.0-44.0); Mean Cell Volume 94.9 fl (78-100); Mean Corpuscular Hemoglobin 30.7 pg (26-32); Mean Corpuscular Hgb Concent. 32.3 g/dl (32-36); Mean Platelet Volume 11.1 fl (7.5-11.0); Monocyte (Absolute #) 1.05 (0.0-1.3); Monocytes % 8.3 % (0.0-12.0); Neutrophil % 57.3 % (36.0-66.0); Platelet Count 263 K/mm3 (150-450); Red Blood Count 3.91 M/mm3 (4.1-5.4); Red Cell Distribution Width 15.6 % (11.5-14.0); White Blood Count 12.6 K/mm3 (4.0-10.5)
[2020-02-09] MEDS ORDERED: Ativan 2 MG/1 ML VIAL IV ONE (20:59)
[2020-02-09 21:13] LABS: ALBUMIN 4.7 g/dL (3.5-5.0); ALKALINE PHOSPHATASE 60 U/L (38-126); BLOOD UREA NITROGEN 20 mg/dL (7-17); CHLORIDE 110 mmol/L (98-107); Carbon Dioxide 21 mmol/L (22-30); Creatinine 1 0.65 mg/dL (0.52-1.04); Glucose 105 mg/dL (74-106); NT PRO BNP 482 pg/mL (0-900); SGOT/AST 26 U/L (14-36); SGPT/ALT 18 U/L (0-35); SODIUM 142 mmol/L (137-145); Total Protein 7.5 g/dL (6.3-8.2)
[2020-02-09] MEDS ORDERED: Ativan 2 MG/1 ML VIAL ONE (21:25)
[2020-02-09 21:36] LABS: PROTIME 11.3 SECONDS (9.95-12.35)
[2020-02-09 21:38] LABS: Appearance CLEAR (CLEAR); Bacteria RARE /HPF (NEGATIVE); Bilirubin NEGATIVE (NEGATIVE); Blood NEGATIVE Ery/ul (0-5); Epithelial Cells RARE /HPF (FEW); Glucose NEGATIVE (NEGATIVE); Ketones NEGATIVE (NEGATIVE); Leukocyte Esterase NEGATIVE (NEGATIVE); Mucus SLIGHT /HPF (NEGATIVE); Nitrite NEGATIVE (NEGATIVE); Protein,Urine Dip NEGATIVE (Negative); Specific Gravity 1.023 (1.005-1.025); Urobilinogen 2 mg/dL (0-1); WBC 0-2 /HPF (0-5)
[2020-02-09 21:51] LABS: Amphetamine,Urine NEGATIVE (NEGATIVE); Barbiturate,Urine NEGATIVE (NEGATIVE); Benzodiazepine,Urine POSITIVE (NEGATIVE); Cocaine,Urine NEGATIVE (NEGATIVE); Methadone,Urine NEGATIVE (NEGATIVE); Opiate,Urine NEGATIVE (NEGATIVE); PCP,Urine NEGATIVE (NEGATIVE); THC,Urine POSITIVE (NEGATIVE)
[2020-02-09 21:58] LABS: INFLUENZA A NEGATIVE (NEGATIVE); INFLUENZA B NEGATIVE (NEGATIVE); RESPIRATORY SYNCTIAL VIRUS NEGATIVE (Negative)
[2020-02-09] MEDS ORDERED: Sodium Chloride 0.9% 1000 ML 1,000 ML IV STA (22:00)
[2020-02-09] MEDS ORDERED: Sodium Chloride 0.9% 1000 ML 1,000 ML ONE (22:03)
[2020-02-09] MEDS ORDERED: solu-MEDROL 125 MG IV ONE (22:26)
[2020-02-09] MEDS ORDERED: solu-MEDROL 125 MG ONE (22:29)
[2020-02-09 22:59] VITALS: BP 129/59; PULSE 62; O2SAT 100
--- NOTE | 2020-02-10 09:27 | XRAY ---
Exam: AP upright portable chest film from 02/09/2020. Comparison: AP upright portable chest film from 12/19/2018. Indication: Shortness of breath. Findings: The heart size and contour are normal. The faustino and mediastinal structures appear unremarkable. The lungs are adequately inflated. The right hemidiaphragm is slightly higher than the left hemidiaphragm representing no change. No air space infiltrates, vascular congestion, pneumothorax, or pleural fluid is seen. No acute osseous process is seen. I believe there are some surgical clips within the right upper quadrant. Impression: 1. No acute cardiopulmonary process is seen, no change from 12/19/2018.
== END 2020-02-09 23:01 | disposition home or self-care (01) ==
LOC: ED 20:36
DX: J44.1 Chronic obstructive pulmonary disease with (acute) exacerbation (principal); F41.9 Anxiety disorder, unspecified
CPT/HCPCS: 36000; 36415; 71045; 80053; 80307; 81001; 83605; 83880; 84484; 85025; 85610; 87040; 87631; 93005; 93041; 94760; 96374; 96375; 99284; J2060; J2930

== ENCOUNTER 2020-02-10 09:53 | Emergency (ER) | payer OTHER ==
[2020-02-10] MEDS ORDERED: VALIUM 10 MG/2 ML SYRINGE IM ONE (10:18)
--- NOTE | 2020-02-10 10:33 | ERPHSYRPT ---
- History of Present Illness Source: patient Exam Limitations: other (Poor historian) Patient Subjective Stated Complaint: anxiety Triage Nursing Assessment: pt to ED with anxiety. pt was seen in ED 02/09/20 for same sx and DC home. pt stressor is pts sister, "my sister keeps trying to get me admitted to that place saying I want to hurt myself, but I dont, I wouldnt do that." pt was recently taken off her klonipin. pt hx anxiety, depression and viri. pt denies SI/HI currently. A&Ox4. Physician History: 60 yo hyperventilating wf who was seen yesterday for the same complaint presents to ER w/dyspnea x2 wks/mid-sternal chest pain x 1 wk wo radiation,stabbing, greater than 10 on scale/chronic cough wo fever/melena/hematochezia/abdominal pain/N/V/D. Pt has a h/o anxiety and chronic pain and was recently taken off her Klonopin/Vicodin. Pt's lungs clear on initial exam before room placement. Timing/Duration: other (1-2 wks) Activities at Onset: emotional stress Severity of Dyspnea-Max: severe Severity of Dyspnea-Current: none Possible Cause: occasional episodes (Pt w h/o COPD) Modifying Factors: Improves With: exertion Associated Symptoms: anxiety, cough, chest pain/discomfort, heaviness, No edema, No fever, No insomnia, No loss of appetite, No lightheadedness, No wheezing, No weakness, No ankle swelling, No chills, No hemoptysis, No calf pain, No dizziness, No heart racing, No lightheadedness, No leg swelling, No muscle spasms feet, No muscle spasms hands, No painful breathing, No productive cough, No sweating, No tightness, No tingling face Allergies/Adverse Reactions: lisinopril Allergy (Verified 12/03/18 19:58) Home Medications: Fluticasone/Vilanterol [Breo Ellipta 100-25 Mcg INH] 1 each IH DAILY 03/09/16 [History] Fluticasone Propionate [Flonase NASAL] 1 spray NS DAILY 03/13/16 [History] Gabapentin [Neurontin] 900 mg PO TID 09/29/16 [History] Metformin HCl [Glucophage] 1,000 mg PO BID 09/29/16 [History] Potassium Chloride 10 Meq Tab* [Klor Con 10 MEQ] 20 meq PO BID 08/29/17 [History] Cyclobenzaprine HCl 10 mg [Cyclobenzaprine 10 MG] 5 mg PO BID 02/20/18 [History] Hydralazine HCl 100 mg PO TID 02/20/18 [History] Albuterol 8 gm Mdi Hfa [Ventolin Hfa MDI] 108 mcg IH Q6HPRN PRN 11/07/18 [History] Albuterol Sulfate 2.5 mg IH TID PRN 11/07/18 [History] Atorvastatin Calcium 80 mg PO DAILY 11/07/18 [History] Ergocalciferol (Vitamin D2) [Vitamin D2] 50,000 unit PO WEEKLY 11/07/18 [History] Loratadine [Allergy] 10 mg PO DAILY 11/07/18 [History] Losartan Potassium 50 mg [Cozaar 50 MG] 100 mg PO DAILY 11/07/18 [History] Metoprolol Succinate 50 mg [Toprol Xl 50 MG] 50 mg PO DAILY 11/07/18 [History] Sumatriptan Succinate [Imitrex] 100 mg PO DAILY PRN PRN 11/07/18 [History] Insulin Lispro [Admelog Solostar] 10 units SQ DAILY 02/09/20 [History] Lacosamide [Vimpat] 1 tab PO DAILY 02/09/20 [History] Omeprazole 1 cap PO DAILY 02/09/20 [History] Hx Tetanus, Diphtheria Vaccination/Date Given: Yes Hx Influenza Vaccination/Date Given: Yes Hx Pneumococcal Vaccination/Date Given: Yes Travel Risk - International Travel Have you traveled outside of the country in past 3 weeks: No - Coronavirus Screening Are you exhibiting any of the following symptoms?: No Close contact with a COVID-19 positive Pt in past 14-21 Days: No - Review of Systems Constitutional: No Symptoms Eyes: No Symptoms Ears, Nose, & Throat: No Symptoms Respiratory: Cough, Dyspnea, Dyspnea on Exertion (POSADAS) Cardiac: Chest Pain Abdominal/Gastrointestinal: No Symptoms Genitourinary Symptoms: No Symptoms Musculoskeletal: No Symptoms Skin: No Symptoms Neurological: No Symptoms Psychological: No Symptoms Endocrine: No Symptoms Hematologic/Lymphatic: No Symptoms Immunological/Allergic: No Symptoms - Past Medical History Pertinent Past Medical History: Yes Neurological History: Migraines, TIA ENT History: No Pertinent History Cardiac History: Hypertension Respiratory History: COPD, Pneumonia, Sleep Apnea Endocrine Medical History: Diabetes Type II Musculoskeletal History: Osteoarthritis GI Medical History: No Pertinent History History: No Pertinent History Psycho-Social History: Anxiety, Depression Female Reproductive Disorders: No Pertinent History Other Medical History: depression, anxiety, viri - Past Surgical History Past Surgical History: Yes Neuro Surgical History: No Pertinent History Cardiac: No Pertinent History Respiratory: No Pertinent History Gastrointestinal: Cholecystectomy Genitourinary: No Pertinent History Musculoskeletal: No Pertinent History Female Surgical History: Section Other Surgical History: colonoscopy - Social History Smoking Status: Current every day smoker How long have you smoked: years Exposure to second hand smoke: Yes Drug Use: marijuana Patient Lives Alone: Yes Significant Family History: no pertinent family hx - Female History Hx Now: No - Nursing Vital Signs Nursing Vital Signs: Initial Vital Signs Temperature 98.5 F 02/10/20 09:54 Pulse Rate 74 02/10/20 09:54 Respiratory Rate 30 H 02/10/20 09:54 Blood Pressure 172/131 02/10/20 09:54 O2 Sat by Pulse Oximetry 98 02/10/20 09:54 Pain Scale Pain Intensity 0 - Physical Exam General Appearance: anxiety (Hyperventilating/Very anxious) Eye Exam: PERRL/EOMI, eyes nml inspection Ears, Nose, Throat Exam: hearing grossly normal, normal ENT inspection, normal pharynx Neck Exam: normal inspection, non-tender, supple, full range of motion, No Brudzinski, No Kernig's Respiratory Exam: normal breath sounds, airway intact Cardiovascular/Chest Exam: normal heart sounds, regular rate/rhythm, No murmur, No JVD Abdominal/Gastrointestinal Exam: soft, normal bowel sounds, No tenderness Rectal Exam: deferred Extremity Exam: non-tender, normal range of motion, normal inspection, normal capillary refill, no pedal edema, No calf tenderness Peripheral Pulses Exam: carotid (R): 2+, carotid (L): 2+ Neurologic Exam: alert, oriented x 3, cooperative, 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 nml as tested, nml cerebellar function, nml station & gait, sensation nml, No motor deficits, No sensory deficit Skin Exam: normal color, warm, dry Lymphatic Exam: No adenopathy SpO2 Interpretation: normal SpO2: 98 O2 Delivery: Room Air - Course EKG Interpreted by Me: RATE (NSR/R62/Normal Qt-Qtc/Normal QRS) Ordered Tests: Active Orders 24 hr Category Date Time Status EKG-ER Only STAT Care 02/10/20 10:16 Active CHEST 1 VIEW (PORTABLE) Stat Exams 02/10/20 10:16 Completed CBC W DIFF Stat Lab 02/10/20 10:50 Completed CMP Stat Lab 02/10/20 10:50 Completed TROPONIN Q3H Lab 02/10/20 10:50 Completed TROPONIN Q3H Lab 02/10/20 13:30 Ordered TROPONIN Q3H Lab 02/10/20 16:30 Ordered TROPONIN Q3H Lab 02/10/20 19:30 Ordered TROPONIN Q3H Lab 02/10/20 22:30 Ordered Urine Triage Profile Stat Lab 02/10/20 11:10 Completed Medication Summary Discontinued Medications Generic Name Dose Route Start Last Admin Trade Name Cuongq PRN Reason Stop Dose Admin Diazepam 10 mg 02/10/20 10:18 02/10/20 10:40 Valium 10 Mg/2 Ml Syringe IM 02/10/20 10:19 10 mg STAT ONE Administration Diazepam Confirm 02/10/20 10:40 Valium 10 Mg/2 Ml Syringe Administered 02/10/20 10:41 Dose 10 mg .ROUTE .STK-MED ONE Lab/Rad Data: Laboratory Result Diagrams 02/10/20 10:50 02/10/20 10:50 Laboratory Results 02/10/20 02/10/20 02/10/20 Range/Units 11:10 10:50 10:50 WBC (4.0-10.5) K/mm3 RBC (4.1-5.4) M/mm3 Hgb (12.0-16.0) gm/dl Hct (35-47) % MCV (78-100) fl MCH (26-32) pg MCHC (32-36) g/dl RDW (11.5-14.0) % Plt Count (150-450) K/mm3 MPV (7.5-11.0) fl Gran % (36.0-66.0) % Eos # (Auto) (0-0.5) Absolute Lymphs (auto) (1.0-4.6) Absolute Monos (auto) (0.0-1.3) Lymphocytes % (24.0-44.0) % Monocytes % (0.0-12.0) % Eosinophils % (0.00-5.0) % Basophils % (0.0-0.4) % Absolute Granulocytes (1.4-6.9) Basophils # (0-0.4) Sodium 139 (137-145) mmol/L Potassium 4.3 (3.5-5.1) mmol/L Chloride 111 H (98-107) mmol/L Carbon Dioxide 20 L (22-30) mmol/L Anion Gap 11.9 (5-15) MEQ/L BUN 23 H (7-17) mg/dL Creatinine 0.72 (0.52-1.04) mg/dL Estimated GFR > 60.0 ML/MIN Glucose 139 H (74-106) mg/dL Calcium 8.2 L (8.4-10.2) mg/dL Total Bilirubin 0.30 (0.2-1.3) mg/dL AST 33 (14-36) U/L ALT 25 (0-35) U/L Alkaline Phosphatase 54 (38-126) U/L Troponin I < 0.012 (0.000-0.034) ng/mL Serum Total Protein 6.5 (6.3-8.2) g/dL Albumin 4.0 (3.5-5.0) g/dL Urine Opiates Level NEGATIVE (NEGATIVE) Ur Methadone NEGATIVE (NEGATIVE) Urine Barbiturates NEGATIVE (NEGATIVE) Ur Phencyclidine (PCP) NEGATIVE (NEGATIVE) Urine Amphetamine NEGATIVE (NEGATIVE) U Benzodiazepine Level POSITIVE (NEGATIVE) Urine Cocaine NEGATIVE (NEGATIVE) Urine Marijuana (THC) POSITIVE (NEGATIVE) 02/10/20 Range/Units 10:50 WBC 8.0 (4.0-10.5) K/mm3 RBC 3.56 L (4.1-5.4) M/mm3 Hgb 10.9 L (12.0-16.0) gm/dl Hct 33.8 L (35-47) % MCV 94.9 (78-100) fl MCH 30.6 (26-32) pg MCHC 32.2 (32-36) g/dl RDW 15.2 H (11.5-14.0) % Plt Count 210 (150-450) K/mm3 MPV 11.4 H (7.5-11.0) fl Gran % 84.0 H (36.0-66.0) % Eos # (Auto) 0.01 (0-0.5) Absolute Lymphs (auto) 1.02 (1.0-4.6) Absolute Monos (auto) 0.24 (0.0-1.3) Lymphocytes % 12.8 L (24.0-44.0) % Monocytes % 3.0 (0.0-12.0) % Eosinophils % 0.1 (0.00-5.0) % Basophils % 0.1 (0.0-0.4) % Absolute Granulocytes 6.67 (1.4-6.9) Basophils # 0.01 (0-0.4) Sodium (137-145) mmol/L Potassium (3.5-5.1) mmol/L Chloride (98-107) mmol/L Carbon Dioxide (22-30) mmol/L Anion Gap (5-15) MEQ/L BUN (7-17) mg/dL Creatinine (0.52-1.04) mg/dL Estimated GFR ML/MIN Glucose (74-106) mg/dL Calcium (8.4-10.2) mg/dL Total Bilirubin (0.2-1.3) mg/dL AST (14-36) U/L ALT (0-35) U/L Alkaline Phosphatase (38-126) U/L Troponin I (0.000-0.034) ng/mL Serum Total Protein (6.3-8.2) g/dL Albumin (3.5-5.0) g/dL Urine Opiates Level (NEGATIVE) Ur Methadone (NEGATIVE) Urine Barbiturates (NEGATIVE) Ur Phencyclidine (PCP) (NEGATIVE) Urine Amphetamine (NEGATIVE) U Benzodiazepine Level (NEGATIVE) Urine Cocaine (NEGATIVE) Urine Marijuana (THC) (NEGATIVE) - Progress Progress: improved Air Movement: good Progress Note: 02/10/20 11:49 Pt given 10mg IM Valium w marked improvement Counseled pt/family regarding: need for follow-up - Departure Departure Disposition: Home Clinical Impression: Anxiety Condition: Stable Critical Care Time: No Referrals: SHERIF JACKSON [Primary Care Provider] - Instructions: Anxiety, Adult (DC) Additional Instructions: Follow up with your family MD/Mental health therapist for chronic anxiety control
[2020-02-10] MEDS ORDERED: VALIUM 10 MG/2 ML SYRINGE ONE (10:40)
[2020-02-10 10:56] LABS: Absolute Neutrophil Ct (ANC) 6.67 (1.4-6.9); BASOPHIL % 0.1 % (0.0-0.4); Basophil (Absolute #) 0.01 (0-0.4); Eosinophil % 0.1 % (0.00-5.0); Eosinophil (Absolute #) 0.01 (0-0.5); Hematocrit 33.8 % (35-47); Hemoglobin 10.9 gm/dl (12.0-16.0); Lymphocyte (Absolute #) 1.02 (1.0-4.6); Lymphocytes % 12.8 % (24.0-44.0); Mean Cell Volume 94.9 fl (78-100); Mean Corpuscular Hemoglobin 30.6 pg (26-32); Mean Corpuscular Hgb Concent. 32.2 g/dl (32-36); Mean Platelet Volume 11.4 fl (7.5-11.0); Monocyte (Absolute #) 0.24 (0.0-1.3); Platelet Count 210 K/mm3 (150-450); Red Blood Count 3.56 M/mm3 (4.1-5.4); Red Cell Distribution Width 15.2 % (11.5-14.0)
[2020-02-10 11:10] LABS: ALKALINE PHOSPHATASE 54 U/L (38-126); ANION GAP 11.9 MEQ/L (5-15); BLOOD UREA NITROGEN 23 mg/dL (7-17); CHLORIDE 111 mmol/L (98-107); Calcium 8.2 mg/dL (8.4-10.2); Carbon Dioxide 20 mmol/L (22-30); Creatinine 1 0.72 mg/dL (0.52-1.04); Glucose 139 mg/dL (74-106); Potassium 4.3 mmol/L (3.5-5.1); SGOT/AST 33 U/L (14-36); SGPT/ALT 25 U/L (0-35); SODIUM 139 mmol/L (137-145); Total Protein 6.5 g/dL (6.3-8.2)
--- NOTE | 2020-02-10 11:17 | XRAY ---
Exam: AP upright portable chest film from 02/10/2020. Comparison: AP upright portable chest film from 02/09/2020. Indication: Chest pain, anxiety, history of COPD. Findings: The heart size and contour are normal. The lungs are well expanded. The faustino and mediastinal structures appear unremarkable. No air space infiltrates, vascular congestion, pneumothorax, or pleural effusion is seen. No acute osseous process is seen. Impression: 1. No acute cardiopulmonary disease is seen, no change from 02/09/2020.
[2020-02-10 11:19] VITALS: O2SAT 98
[2020-02-10 11:34] LABS: Amphetamine,Urine NEGATIVE (NEGATIVE); Benzodiazepine,Urine POSITIVE (NEGATIVE); Cocaine,Urine NEGATIVE (NEGATIVE); Methadone,Urine NEGATIVE (NEGATIVE); Opiate,Urine NEGATIVE (NEGATIVE); THC,Urine POSITIVE (NEGATIVE)
[2020-02-10 11:40] LABS: PCP,Urine NEGATIVE (NEGATIVE)
[2020-02-10 11:41] LABS: Barbiturate,Urine NEGATIVE (NEGATIVE)
[2020-02-10 11:55] VITALS: BP 143/69; PULSE 68
== END 2020-02-10 12:00 | disposition home or self-care (01) ==
LOC: ED 09:53
DX: F41.9 Anxiety disorder, unspecified (principal)
CPT/HCPCS: 36415; 71045; 80053; 80307; 84484; 85025; 93005; 96372; 99284; J3360

== ENCOUNTER 2020-02-11 15:32 | Emergency (ER) | payer OTHER ==
[2020-02-11 15:36] VITALS: O2SAT 94
[2020-02-11] MEDS ORDERED: BENADRYL 50 MG/ML IM ONE (16:08)
--- NOTE | 2020-02-11 16:11 | ERPHSYRPT ---
- History of Present Illness Time Seen by Provider: 02/11/20 15:40 Source: patient Exam Limitations: no limitations Patient Subjective Stated Complaint: pt here for withdrawal of medication klonopin for a month, also weaned self off pain pills in october. pt was seen here twice in er yesterday, Triage Nursing Assessment: pt anxious, hyperventilating, alert, resp easy, skin w/d/p. shaking, Physician History: Patient is a 59-year-old female presents to our ED with complaints of Klonopin withdrawal. Patient has been weaning herself off of her medications and benzodiazepines. Patient weaned herself off of [place] in October. Patient weaned herself off of Klonopin over the past several weeks. Patient has been in our ED for the same. Patient was here yesterday twice for the same. Patient received complete work-up and work-up was negative. Patient states she feels jittery. No chest pain or shortness of breath. No nausea vomiting or diaphoresis. No fever no rash. Patient voices no other complaints or concerns at this time. Timing/Duration: day(s) Severity: moderate Modifying Factors: Improves With: nothing, other (Patient states Benadryl has helped her symptoms in the past.) Associated Symptoms: No nausea, No vomiting, No abdominal pain, No shortness of breath, No heartburn, No diaphoresis, No cough, No chills, No chest pain, No fever, No headaches, No loss of appetite Allergies/Adverse Reactions: lisinopril Allergy (Verified 02/11/20 15:41) Home Medications: Fluticasone/Vilanterol [Breo Ellipta 100-25 Mcg INH] 1 each IH DAILY 03/09/16 [History] Fluticasone Propionate [Flonase NASAL] 1 spray NS DAILY 03/13/16 [History] Gabapentin [Neurontin] 900 mg PO TID 09/29/16 [History] Metformin HCl [Glucophage] 1,000 mg PO BID 09/29/16 [History] Potassium Chloride 10 Meq Tab* [Klor Con 10 MEQ] 20 meq PO BID 08/29/17 [History] Cyclobenzaprine HCl 10 mg [Cyclobenzaprine 10 MG] 5 mg PO BID 02/20/18 [History] Hydralazine HCl 100 mg PO TID 02/20/18 [History] Albuterol 8 gm Mdi Hfa [Ventolin Hfa MDI] 108 mcg IH Q6HPRN PRN 11/07/18 [History] Albuterol Sulfate 2.5 mg IH TID PRN 11/07/18 [History] Atorvastatin Calcium 80 mg PO DAILY 11/07/18 [History] Ergocalciferol (Vitamin D2) [Vitamin D2] 50,000 unit PO WEEKLY 11/07/18 [H istory] Loratadine [Allergy] 10 mg PO DAILY 11/07/18 [History] Losartan Potassium 50 mg [Cozaar 50 MG] 100 mg PO DAILY 11/07/18 [History] Metoprolol Succinate 50 mg [Toprol Xl 50 MG] 50 mg PO DAILY 11/07/18 [History] Sumatriptan Succinate [Imitrex] 100 mg PO DAILY PRN PRN 11/07/18 [History] Insulin Lispro [Admelog Solostar] 10 units SQ DAILY 02/09/20 [History] Lacosamide [Vimpat] 1 tab PO DAILY 02/09/20 [History] Omeprazole 1 cap PO DAILY 02/09/20 [History] Hx Tetanus, Diphtheria Vaccination/Date Given: Yes Hx Influenza Vaccination/Date Given: Yes Hx Pneumococcal Vaccination/Date Given: Yes Immunizations Up to Date: Yes Travel Risk - International Travel Have you traveled outside of the country in past 3 weeks: No - Coronavirus Screening Are you exhibiting any of the following symptoms?: Yes Symptoms: Shortness of Breath Close contact with a COVID-19 positive Pt in past 14-21 Days: No - Review of Systems Constitutional: No Symptoms, No Fever, No Chills Eyes: No Symptoms Ears, Nose, & Throat: No Symptoms Respiratory: No Symptoms, No Cough, No Dyspnea Cardiac: No Symptoms, No Chest Pain, No Edema, No Syncope Abdominal/Gastrointestinal: No Symptoms, No Abdominal Pain, No Nausea, No Vomiting, No Diarrhea Genitourinary Symptoms: No Symptoms, No Dysuria Musculoskeletal: No Symptoms, No Back Pain, No Neck Pain Skin: No Symptoms, No Rash Neurological: No Symptoms, No Dizziness, No Focal Weakness, No Sensory Changes Psychological: No Symptoms Endocrine: No Symptoms Hematologic/Lymphatic: No Symptoms Immunological/Allergic: No Symptoms All Other Systems: Reviewed and Negative - Past Medical History Pertinent Past Medical History: Yes Neurological History: Migraines, TIA ENT History: No Pertinent History Cardiac History: Hypertension Respiratory History: COPD, Pneumonia, Sleep Apnea Endocrine Medical History: Diabetes Type II Musculoskeletal History: Osteoarthritis GI Medical History: No Pertinent History History: No Pertinent History Psycho-Social History: Anxiety, Depression Female Reproductive Disorders: No Pertinent History Other Medical History: depression, anxiety, viri - Past Surgical History Past Surgical History: Yes Neuro Surgical History: No Pertinent History Cardiac: No Pertinent History Respiratory: No Pertinent History Gastrointestinal: Cholecystectomy Genitourinary: No Pertinent History Musculoskeletal: No Pertinent History Female Surgical History: Section Other Surgical History: colonoscopy - Social History Smoking Status: Current every day smoker How long have you smoked: years Exposure to second hand smoke: Yes Drug Use: marijuana Patient Lives Alone: Yes Significant Family History: no pertinent family hx - Female History Hx Last Menstrual Period: post Hx Now: No - Nursing Vital Signs Nursing Vital Signs: Initial Vital Signs Temperature 98.8 F 02/11/20 15:33 Pulse Rate 104 H 02/11/20 15:33 Respiratory Rate 28 H 02/11/20 15:33 Blood Pressure 182/100 02/11/20 15:33 O2 Sat by Pulse Oximetry 94 L 02/11/20 15:33 Pain Scale Pain Intensity 0 - Physical Exam General Appearance: no apparent distress, alert, other (Patient appears very anxious.) Eye Exam: PERRL/EOMI, eyes nml inspection Ears, Nose, Throat Exam: normal ENT inspection, TMs normal, pharynx normal, moist mucous membranes Neck Exam: normal inspection, non-tender, supple, full range of motion Respiratory Exam: normal breath sounds, lungs clear, No respiratory distress Cardiovascular Exam: regular rate/rhythm, normal heart sounds, normal peripheral pulses Gastrointestinal/Abdomen Exam: soft, normal bowel sounds, No tenderness, No mass Back Exam: normal inspection, normal range of motion, No CVA tenderness, No vertebral tenderness Extremity Exam: normal inspection, normal range of motion, pelvis stable Neurologic Exam: alert, oriented x 3, cooperative, normal mood/affect, nml cerebellar function, nml station & gait, sensation nml, No motor deficits Skin Exam: normal color, warm, dry, No rash Lymphatic Exam: No adenopathy SpO2 Interpretation: normal SpO2: 94 O2 Delivery: Room Air - Course Nursing assessment & vital signs reviewed: Yes Ordered Tests: Medication Summary Discontinued Medications Generic Name Dose Route Start Last Admin Trade Name Comfort PRN Reason Stop Dose Admin Diphenhydramine HCl 50 mg 02/11/20 16:08 02/11/20 16:18 Benadryl 50 Mg/Ml IM 02/11/20 16:09 50 mg STAT ONE Administration Diphenhydramine HCl Confirm 02/11/20 16:14 Benadryl 50 Mg/Ml Administered 02/11/20 16:15 Dose 50 mg .ROUTE .[employer] ONE - Progress Progress: improved Progress Note: 02/11/20 16:46 Patient reassessed. Anxiety much improved after Benadryl ministration. Patient now requesting discharge. Heart rate 100. Patient's denies symptoms. Patient has a ride home at this time and wants to leave. Patient agrees to follow-up with her primary care doctor within 48 hours for reevaluation. Counseled pt/family regarding: diagnosis, need for follow-up - Departure Departure Disposition: Home, Release to OR/MIC Clinical Impression: Withdrawal complaint Condition: Stable Critical Care Time: No Referrals: SHERIF JACKSON [Primary Care Provider] - Additional Instructions: Discharge/Care Plan DREJULIA VALLE was seen on 02/11/20 in the Emergency Room. The patient was counseled regarding Diagnosis,Lab results, Imaging studies, need for follow up and when to return to the Emergency Room. Prescriptions given: Discharge Note I have spoken with the patient and/or caregivers. I have explained the patient's condition, diagnosis and treatment plan based on the information available to me at this time. I have answered the patient's and/or caregiver's questions and addressed any concerns. The patient and/or caregivers have as good understanding of the patient's diagnosis, condition and treatment plan as can be expected at this point. The vital signs have been stable. The patient's condition is stable and appropriate for discharge from the emergency department. The patient will pursue further outpatient evaluation with the primary care physician or other designated or consulting physician as outlined in the discharge instructions. The patient and/or caregivers are agreeable to this plan of care and follow-up instructions have been explained in detail. The patient and/or caregivers have received these instruction. The patient/and or caregivers are aware that any significant change in condition or worsening of symptoms should prompt an immediate return to this or the closest emergency department or call 911.
[2020-02-11] MEDS ORDERED: BENADRYL 50 MG/ML ONE (16:14)
[2020-02-11 16:46] VITALS: BP 173/81; PULSE 100
== END 2020-02-11 16:49 | disposition home or self-care (01) ==
LOC: ED 15:32
DX: Z79.899 Other long term (current) drug therapy (principal); E11.9 Type 2 diabetes mellitus without complications; G47.30 Sleep apnea, unspecified
CPT/HCPCS: 96372; 99283; J1200

== ENCOUNTER 2020-02-12 01:24 | Emergency (ER) | payer OTHER ==
--- NOTE | 2020-02-12 01:46 | ERPHSYRPT ---
- History of Present Illness Source: patient Exam Limitations: no limitations Timing/Duration: today Severity of Symptoms-Max: moderate Severity of Symptoms-Current: moderate Context related to: other (reports being taken off clonazepam. ) Associated Symptoms: hallucinating, paranoid Previous symptoms: no prior history Hx Tetanus, Diphtheria Vaccination/Date Given: Yes Hx Influenza Vaccination/Date Given: Yes Hx Pneumococcal Vaccination/Date Given: Yes <CARLOS KEARNEY - Last Filed: 02/12/20 05:02> <KATERINA CHARLTON - Last Filed: 02/12/20 12:18> - History of Present Illness Time Seen by Provider: 02/12/20 01:40 Physician History: Patient is a 59-year-old female who presents to our ED with PD for evaluation. Patient has called 911 several times. Patient claims that people are out to get her. Patient states that people are messing with her and coming in and out of her apartment. There is no verification of these claims. Patient admits that she has been off of her Klonopin. Patient states she feels very anxious. This officer observed pressured speech and paranoid behavior. Patient brought in for psychiatric evaluation. Patient is not cooperative. Patient denies pain. No nausea or vomiting. No diarrhea. No rash. No trauma. Patient voices no other complaints at this time. (CARLOS KEARNEY) Allergies/Adverse Reactions: lisinopril Allergy (Verified 02/11/20 15:41) Home Medications: Fluticasone/Vilanterol [Breo Ellipta 100-25 Mcg INH] 1 each IH DAILY 03/09/16 [History] Fluticasone Propionate [Flonase NASAL] 1 spray NS DAILY 03/13/16 [History] Gabapentin [Neurontin] 900 mg PO TID 09/29/16 [History] Metformin HCl [Glucophage] 1,000 mg PO BID 09/29/16 [History] Potassium Chloride 10 Meq Tab* [Klor Con 10 MEQ] 20 meq PO BID 08/29/17 [History] Cyclobenzaprine HCl 10 mg [Cyclobenzaprine 10 MG] 5 mg PO BID 02/20/18 [History] Hydralazine HCl 100 mg PO TID 02/20/18 [History] Albuterol 8 gm Mdi Hfa [Ventolin Hfa MDI] 108 mcg IH Q6HPRN PRN 11/07/18 [History] Albuterol Sulfate 2.5 mg IH TID PRN 11/07/18 [History] Atorvastatin Calcium 80 mg PO DAILY 11/07/18 [History] Ergocalciferol (Vitamin D2) [Vitamin D2] 50,000 unit PO WEEKLY 11/07/18 [History] Loratadine [Allergy] 10 mg PO DAILY 11/07/18 [History] Losartan Potassium 50 mg [Cozaar 50 MG] 100 mg PO DAILY 11/07/18 [History] Metoprolol Succinate 50 mg [Toprol Xl 50 MG] 50 mg PO DAILY 11/07/18 [History] Sumatriptan Succinate [Imitrex] 100 mg PO DAILY PRN PRN 11/07/18 [History] Insulin Lispro [Admelog Solostar] 10 units SQ DAILY 02/09/20 [History] Lacosamide [Vimpat] 1 tab PO DAILY 02/09/20 [History] Omeprazole 1 cap PO DAILY 02/09/20 [History] - Past Medical History Pertinent Past Medical History: Yes Neurological History: Migraines, TIA ENT History: No Pertinent History Cardiac History: Hypertension Respiratory History: COPD, Pneumonia, Sleep Apnea Endocrine Medical History: Diabetes Type II Musculoskeletal History: Osteoarthritis GI Medical History: No Pertinent History History: No Pertinent History Psycho-Social History: Anxiety, Depression Female Reproductive Disorders: No Pertinent History Other Medical History: depression, anxiety, viri - Past Surgical History Past Surgical History: Yes Neuro Surgical History: No Pertinent History Cardiac: No Pertinent History Respiratory: No Pertinent History Gastrointestinal: Cholecystectomy Genitourinary: No Pertinent History Musculoskeletal: No Pertinent History Female Surgical History: Section Other Surgical History: colonoscopy - Social History Smoking Status: Current every day smoker How long have you smoked: years Exposure to second hand smoke: Yes Drug Use: marijuana Patient Lives Alone: Yes Significant Family History: no pertinent family hx <CARLOS KEARNEY - Last Filed: 02/12/20 05:02> - Review of Systems All Other Systems: Unable due to condition <CARLOS KEARNEY - Last Filed: 02/12/20 05:02> - Physical Exam General Appearance: moderate distress, other Eyes, Ears, Nose, Throat Exam: normal ENT inspection, moist mucous membranes Neck Exam: normal inspection, non-tender, supple Respiratory Exam: normal breath sounds, lungs clear, No respiratory distress Cardiovascular Exam: regular rate/rhythm, No edema Gastrointestinal/Abdominal Exam: soft, No tenderness, No distention Extremities Exam: normal inspection, normal range of motion, No evidence of injury, No edema Current Suicidality: denies suicide plan 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: 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, 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, oriented x 3 Appearance: appropriate appearance, impaired insight Behavior/Eye Contact/Speech: good eye contact Thoughts/Hallucinations: delusions Skin Exam: normal color, warm, dry, No rash SpO2 Interpretation: normal SpO2: 98 O2 Delivery: Room Air <CARLOS KEARNEY - Last Filed: 02/12/20 05:02> - Nursing Vital Signs Nursing Vital Signs: Initial Vital Signs Temperature 98.2 F 02/12/20 01:30 Pulse Rate 103 H 02/12/20 01:30 Respiratory Rate 22 02/12/20 01:30 Blood Pressure 126/82 02/12/20 01:30 O2 Sat by Pulse Oximetry 98 02/12/20 01:30 Pain Scale Pain Intensity 0 - Course Nursing assessment & vital signs reviewed: Yes - Radiology Exams Chest X-ray Interpretation: Interpreted by me (No infiltrate no consolidation no pleural effusion normal bony thorax normal cardiac silhouette.) <CARLOS KEARNEY - Last Filed: 02/12/20 05:02> Ordered Tests: Active Orders 24 hr Category Date Time Status Inventory Specialist STAT Care 02/12/20 01:32 Active CHEST 1 VIEW (PORTABLE) Stat Exams 02/12/20 02:51 Taken ACETAMINOPHEN Stat Lab 02/12/20 01:57 Completed BLOOD CULTURE Stat Lab 02/12/20 02:52 Received CBC W DIFF Stat Lab 02/12/20 01:57 Completed CMP Stat Lab 02/12/20 01:57 Completed ETHYL ALCOHOL Stat Lab 02/12/20 01:57 Completed SALICYLATE Stat Lab 02/12/20 01:57 Completed UA W/RFX UR CULTURE Stat Lab 02/12/20 01:57 Completed Urine Triage Profile Stat Lab 02/12/20 01:57 Completed Medication Summary Discontinued Medications Generic Name Dose Route Start Last Admin Trade Name Freq PRN Reason Stop Dose Admin Haloperidol Lactate 5 mg 02/12/20 03:59 02/12/20 04:03 Haldol 5 Mg IM 02/12/20 04:00 5 mg STAT ONE Administration Haloperidol Lactate Confirm 02/12/20 04:02 Haldol 5 Mg Administered 02/12/20 04:03 Dose 5 mg .ROUTE .STK-MED ONE Lorazepam 2 mg 02/12/20 04:00 02/12/20 04:03 Ativan 2 Mg/1 Ml Vial IM 02/12/20 04:01 2 mg STAT ONE Administration Lorazepam Confirm 02/12/20 04:02 Ativan 2 Mg/1 Ml Vial Administered 02/12/20 04:03 Dose 2 mg .ROUTE .STK-MED ONE Lorazepam 2 mg 02/12/20 09:32 02/12/20 09:37 Ativan 2 Mg/1 Ml Vial IM 02/12/20 09:33 2 mg STAT ONE Administration Lorazepam Confirm 02/12/20 09:35 Ativan 2 Mg/1 Ml Vial Administered 02/12/20 09:36 Dose 2 mg .ROUTE .STK-MED ONE Lab/Rad Data: Laboratory Result Diagrams 02/12/20 01:57 02/12/20 01:57 Laboratory Results 02/12/20 02/12/20 02/12/20 Range/Units 08:43 01:57 01:57 WBC (4.0-10.5) K/mm3 RBC (4.1-5.4) M/mm3 Hgb (12.0-16.0) gm/dl Hct (35-47) % MCV (78-100) fl MCH (26-32) pg MCHC (32-36) g/dl RDW (11.5-14.0) % Plt Count (150-450) K/mm3 MPV (7.5-11.0) fl Gran % (36.0-66.0) % Eos # (Auto) (0-0.5) Absolute Lymphs (auto) (1.0-4.6) Absolute Monos (auto) (0.0-1.3) Lymphocytes % (24.0-44.0) % Monocytes % (0.0-12.0) % Eosinophils % (0.00-5.0) % Basophils % (0.0-0.4) % Absolute Granulocytes (1.4-6.9) Basophils # (0-0.4) Sodium (137-145) mmol/L Potassium (3.5-5.1) mmol/L Chloride (98-107) mmol/L Carbon Dioxide (22-30) mmol/L Anion Gap (5-15) MEQ/L BUN (7-17) mg/dL Creatinine (0.52-1.04) mg/dL Estimated GFR ML/MIN Glucose (74-106) mg/dL Calcium (8.4-10.2) mg/dL Total Bilirubin (0.2-1.3) mg/dL AST (14-36) U/L ALT (0-35) U/L Alkaline Phosphatase (38-126) U/L Serum Total Protein (6.3-8.2) g/dL Albumin (3.5-5.0) g/dL Urine Color STRAW (YELLOW) Urine Appearance CLEAR (CLEAR) Urine pH 5.0 (5-6) Ur Specific [place] 1.009 (1.005-1.025) Urine Protein NEGATIVE (Negative) Urine Ketones NEGATIVE (NEGATIVE) Urine Blood NEGATIVE (0-5) Irineo/ul Urine Nitrite NEGATIVE (NEGATIVE) Urine Bilirubin NEGATIVE (NEGATIVE) Urine Urobilinogen NEGATIVE (0-1) mg/dL Ur Leukocyte Esterase NEGATIVE (NEGATIVE) Urine WBC (Auto) NONE SEEN (0-5) /HPF Urine RBC (Auto) NONE (0-2) /HPF U Hyaline Cast (Auto) 6-10 (0-2) /LPF U Epithel Cells (Auto) NONE (FEW) /HPF Urine Bacteria (Auto) NONE SEEN (NEGATIVE) /HPF Other Casts (Auto) NEGATIVE (NEGATIVE) /LPF Urine Mucus (Auto) SLIGHT (NEGATIVE) /HPF Urine Culture Reflexed NO (NO) Urine Glucose NEGATIVE (NEGATIVE) mg/dL Salicylates (2-20) mg/dL Urine Opiates Level NEGATIVE (NEGATIVE) Ur Methadone NEGATIVE (NEGATIVE) Acetaminophen (10-30) ug/ml Urine Barbiturates NEGATIVE (NEGATIVE) Ur Phencyclidine (PCP) NEGATIVE (NEGATIVE) Urine Amphetamine NEGATIVE (NEGATIVE) U Benzodiazepine Level POSITIVE (NEGATIVE) Urine Cocaine NEGATIVE (NEGATIVE) Urine Marijuana (THC) POSITIVE (NEGATIVE) Ethyl Alcohol (0-10) mg/dL SARS-CoV-2 (PCR) NEGATIVE (NEGATIVE) 02/12/20 02/12/20 Range/Units 01:57 01:57 WBC 18.4 H (4.0-10.5) K/mm3 RBC 3.86 L (4.1-5.4) M/mm3 Hgb 11.9 L (12.0-16.0) gm/dl Hct 36.1 (35-47) % MCV 93.5 (78-100) fl MCH 30.8 (26-32) pg MCHC 33.0 (32-36) g/dl RDW 15.7 H (11.5-14.0) % Plt Count 275 (150-450) K/mm3 MPV 11.0 (7.5-11.0) fl Gran % 71.1 H (36.0-66.0) % Eos # (Auto) 0.01 (0-0.5) Absolute Lymphs (auto) 3.82 (1.0-4.6) Absolute Monos (auto) 1.49 H (0.0-1.3) Lymphocytes % 20.7 L (24.0-44.0) % Monocytes % 8.1 (0.0-12.0) % Eosinophils % 0.1 (0.00-5.0) % Basophils % 0.0 (0.0-0.4) % Absolute Granulocytes 13.10 H (1.4-6.9) Basophils # 0 (0-0.4) Sodium 143 (137-145) mmol/L Potassium 3.6 (3.5-5.1) mmol/L Chloride 108 H (98-107) mmol/L Carbon Dioxide 24 (22-30) mmol/L Anion Gap 14.4 (5-15) MEQ/L BUN 26 H (7-17) mg/dL Creatinine 1.09 H (0.52-1.04) mg/dL Estimated GFR 55.0 ML/MIN Glucose 72 L (74-106) mg/dL Calcium 9.3 (8.4-10.2) mg/dL Total Bilirubin 0.70 (0.2-1.3) mg/dL AST 31 (14-36) U/L ALT 27 (0-35) U/L Alkaline Phosphatase 72 (38-126) U/L Serum Total Protein 8.0 (6.3-8.2) g/dL Albumin 5.1 H (3.5-5.0) g/dL Urine Color (YELLOW) Urine Appearance (CLEAR) Urine pH (5-6) Ur Specific [place] (1.005-1.025) Urine Protein (Negative) Urine Ketones (NEGATIVE) Urine Blood (0-5) Irineo/ul Urine Nitrite (NEGATIVE) Urine Bilirubin (NEGATIVE) Urine Urobilinogen (0-1) mg/dL Ur Leukocyte Esterase (NEGATIVE) Urine WBC (Auto) (0-5) /HPF Urine RBC (Auto) (0-2) /HPF U Hyaline Cast (Auto) (0-2) /LPF U Epithel Cells (Auto) (FEW) /HPF Urine Bacteria (Auto) (NEGATIVE) /HPF Other Casts (Auto) (NEGATIVE) /LPF Urine Mucus (Auto) (NEGATIVE) /HPF Urine Culture Reflexed (NO) Urine Glucose (NEGATIVE) mg/dL Salicylates < 1.0 L (2-20) mg/dL Urine Opiates Level (NEGATIVE) Ur Methadone (NEGATIVE) Acetaminophen < 10 L (10-30) ug/ml Urine Barbiturates (NEGATIVE) Ur Phencyclidine (PCP) (NEGATIVE) Urine Amphetamine (NEGATIVE) U Benzodiazepine Level (NEGATIVE) Urine Cocaine (NEGATIVE) Urine Marijuana (THC) (NEGATIVE) Ethyl Alcohol < 10 (0-10) mg/dL SARS-CoV-2 (PCR) (NEGATIVE) - Progress Progress: unchanged Counseled pt/family regarding: diagnosis <CARLOS KEARNEY - Last Filed: 02/12/20 05:02> - Progress Progress: improved <KATERINA CHARLTON - Last Filed: 02/12/20 12:18> - Progress Progress Note: 02/12/20 04:53 Patient has leukocytosis of 18,000. No fever. No UTI. Blood cultures obtained. No source of infection. Patient's aggressive behavior were c ontinuous and even progressive in intensity. Patient revealing private body parts in the hallway. Patient refusing to allow physician into the treatment room for an evaluation. Then patient called physician and security into the room stating that she was intending to make a pass at them. Telemetry mental not available. Telemetry mental will be available in the morning. Patient given 5 of Haldol and 2 of Ativan to calm patient. Patient now calm. (CARLOS KEARNEY) 02/12/20 12:17 59 years old is checked out to me at end of Dr. Kearney shift with pending psych evaluation. Patient was medically cleared by Dr. Kearney. Patient was given Haldol and benzos earlier and was sleeping for a while, woke up and was anxious again, I have given her Ativan and she is much calmer now. Patient is accepted by [facility] psych facility at [place]. (KATERINA CHARLTON) - Departure Departure Disposition: Home, Extended Care Facility Critical Care Time: No <CARLOS KEARNEY - Last Filed: 02/12/20 05:02> - Departure Departure Disposition: Transfer <KATERINA CHARLTON - Last Filed: 02/12/20 12:18> - Departure Clinical Impression: Acute psychosis, Paranoid, Hallucination Leukocytosis Qualifiers: Leukocytosis type: unspecified Qualified Code(s): D72.829 - Elevated white blood cell count, unspecified Condition: Stable Referrals: SHERIF JACKSON [Primary Care Provider] -
[2020-02-12 02:00] LABS: Basophil (Absolute #) 0 (0-0.4); Eosinophil % 0.1 % (0.00-5.0); Eosinophil (Absolute #) 0.01 (0-0.5); Hematocrit 36.1 % (35-47); Hemoglobin 11.9 gm/dl (12.0-16.0); Lymphocyte (Absolute #) 3.82 (1.0-4.6); Lymphocytes % 20.7 % (24.0-44.0); Mean Cell Volume 93.5 fl (78-100); Mean Corpuscular Hemoglobin 30.8 pg (26-32); Monocyte (Absolute #) 1.49 (0.0-1.3); Monocytes % 8.1 % (0.0-12.0); Neutrophil % 71.1 % (36.0-66.0); Platelet Count 275 K/mm3 (150-450); Red Blood Count 3.86 M/mm3 (4.1-5.4); Red Cell Distribution Width 15.7 % (11.5-14.0); White Blood Count 18.4 K/mm3 (4.0-10.5)
[2020-02-12 02:12] LABS: Appearance CLEAR (CLEAR); Bilirubin NEGATIVE (NEGATIVE); Blood NEGATIVE Ery/ul (0-5); Glucose NEGATIVE (NEGATIVE); Ketones NEGATIVE (NEGATIVE); Leukocyte Esterase NEGATIVE (NEGATIVE); Mucus SLIGHT /HPF (NEGATIVE); Nitrite NEGATIVE (NEGATIVE); Protein,Urine Dip NEGATIVE (Negative); Specific Gravity 1.009 (1.005-1.025); Urobilinogen NEGATIVE mg/dL (0-1)
[2020-02-12 02:13] LABS: Bacteria NONE SEEN /HPF (NEGATIVE); WBC NONE SEEN /HPF (0-5)
[2020-02-12 02:18] LABS: Amphetamine,Urine NEGATIVE (NEGATIVE); Barbiturate,Urine NEGATIVE (NEGATIVE); Benzodiazepine,Urine POSITIVE (NEGATIVE); Cocaine,Urine NEGATIVE (NEGATIVE); Methadone,Urine NEGATIVE (NEGATIVE); Opiate,Urine NEGATIVE (NEGATIVE); PCP,Urine NEGATIVE (NEGATIVE); THC,Urine POSITIVE (NEGATIVE)
[2020-02-12 02:19] LABS: ALBUMIN 5.1 g/dL (3.5-5.0); ALKALINE PHOSPHATASE 72 U/L (38-126); ANION GAP 14.4 MEQ/L (5-15); BLOOD UREA NITROGEN 26 mg/dL (7-17); CHLORIDE 108 mmol/L (98-107); Calcium 9.3 mg/dL (8.4-10.2); Carbon Dioxide 24 mmol/L (22-30); Creatinine 1 1.09 mg/dL (0.52-1.04); Glucose 72 mg/dL (74-106); Potassium 3.6 mmol/L (3.5-5.1); SGOT/AST 31 U/L (14-36); SGPT/ALT 27 U/L (0-35); SODIUM 143 mmol/L (137-145)
[2020-02-12 02:21] LABS: ACETAMINOPHEN < 10 ug/ml (10-30); ETHYL ALCOHOL < 10 mg/dL (0-10); SALICYLATE < 1.0 mg/dL (2-20)
[2020-02-12] MEDS ORDERED: Haldol 5 MG IM ONE (03:59)
[2020-02-12] MEDS ORDERED: Ativan 2 MG/1 ML VIAL IM ONE ×2 (04:00→09:32)
[2020-02-12] MEDS ORDERED: Haldol 5 MG ONE (04:02)
[2020-02-12] MEDS ORDERED: Ativan 2 MG/1 ML VIAL ONE ×2 (04:02→09:35)
[2020-02-12 09:32] VITALS: BP 116/66; PULSE 73; O2SAT 97
--- NOTE | 2020-02-12 19:04 | XRAY ---
Exam: AP portable chest film from 02/12/2020. Comparison: AP portable chest film from 02/10/2020. Indication: Pneumonia; patient unable to sit upright or sit still. Findings: 3 AP portable chest radiographs were obtained to include the entire chest. The heart size and contour are normal. The faustino and mediastinal structures appear unremarkable. I believe there is a small calcified granuloma within the left midlung field which in retrospect is unchanged. The lungs are well expanded. No airspace infiltrates, ground glass opacities, vascular congestion, pneumothorax, or pleural fluid is seen. I believe there is also a tiny calcified granuloma within the medial left upper lobe. No acute osseous process is seen. Impression: 1. No infiltrates to suggest focal pneumonia or other acute cardiopulmonary disease is seen. This represents no change from 02/10/2020.
== END 2020-02-12 14:34 | disposition short-term general hospital (02) ==
LOC: ED 01:24
DX: D72.829 Elevated white blood cell count, unspecified (principal); F23 Brief psychotic disorder; R44.3 Hallucinations, unspecified; Z79.899 Other long term (current) drug therapy; E11.9 Type 2 diabetes mellitus without complications; I10 Essential (primary) hypertension; Z86.73 Personal history of transient ischemic attack (TIA), and cerebral infarction without residual deficits
CPT/HCPCS: 36415; 71045; 80053; 80307; 81001; 85025; 87040; 96372; 99285; U0003; J1630; J2060; G0480

== ENCOUNTER 2020-02-25 22:31 | Emergency (ER) | payer OTHER ==
--- NOTE | 2020-02-25 23:02 | ERPHSYRPT ---
- History of Present Illness Time Seen by Provider: 02/25/20 22:40 Source: patient Exam Limitations: no limitations Patient Subjective Stated Complaint: pt c/o cough, sob, headache, sore throat Triage Nursing Assessment: pt c/o cough, sob, headache, sore throat x2 days. Dr. Negin Short called her in azithromycin yesterday but pt did not pick it up till today. Pt took dose today at 10:00am. Pt has exp wheezes throughout ant and post, lung blake tight. Pt has high anxiety. Pt has chest discomfort due to coughing and anxiety. Physician History: Patient is a 59-year-old female who presents to our ED with complaints of coughing shortness of breath and chest discomfort. Patient feels that her chest discomfort is likely from coughing. Patient is currently on a Z-Karri and steroids. Patient states her symptoms started several days ago. Symptoms are constant. Patient is concerned due to her symptomology. Patient states she is got anxiety and feels that she cannot wait to see her doctor in the morning. No associated diaphoresis. No nausea or vomiting. Patient voiced no other complaints at this time. Timing/Duration: day(s) Cough Quality/Degree: dry cough Possible Cause: unknown cause Modifying Factors: Improves With: nothing Associated Symptoms: fever, chest pain/soreness, cough, shortness of breath, No dizziness, No facial pain, No headache, No lightheadedness, No nasal congestion, No nasal drainage Allergies/Adverse Reactions: lisinopril Allergy (Verified 02/25/20 22:50) Home Medications: Fluticasone/Vilanterol [Breo Ellipta 100-25 Mcg INH] 1 each IH DAILY 03/09/16 [History] Fluticasone Propionate [Flonase NASAL] 1 spray NS DAILY 03/13/16 [History] Gabapentin [Neurontin] 900 mg PO TID 09/29/16 [History] Metformin HCl [Glucophage] 1,000 mg PO BID 09/29/16 [History] Potassium Chloride 10 Meq Tab* [Klor Con 10 MEQ] 20 meq PO BID 08/29/17 [History] Cyclobenzaprine HCl 10 mg [Cyclobenzaprine 10 MG] 5 mg PO BID 02/20/18 [History] Hydralazine HCl 100 mg PO TID 02/20/18 [History] Albuterol 8 gm Mdi Hfa [Ventolin Hfa MDI] 108 mcg IH Q6HPRN PRN 11/07/18 [History] Albuterol Sulfate 2.5 mg IH TID PRN 11/07/18 [History] Atorvastatin Calcium 80 mg PO DAILY 11/07/18 [History] Ergocalciferol (Vitamin D2) [Vitamin D2] 50,000 unit PO DIRECTIONS UNKNOWN 11/07/18 [History] Loratadine [Allergy] 10 mg PO DAILY 11/07/18 [History] Losartan Potassium 50 mg [Cozaar 50 MG] 100 mg PO DAILY 11/07/18 [History] Metoprolol Succinate 50 mg [Toprol Xl 50 MG] 50 mg PO DAILY 11/07/18 [History] Insulin Lispro [Admelog Solostar] 20 units SQ DAILY 02/09/20 [History] Lacosamide [Vimpat] 1 tab PO BID 02/09/20 [History] Omeprazole 1 cap PO DAILY 02/09/20 [History] Azithromycin 500 mg PO DAILY 02/25/20 [History] Baclofen 10 mg PO TID 02/25/20 [History] Prednisone 20 mg PO DAILY 02/25/20 [History] Hx Tetanus, Diphtheria Vaccination/Date Given: No Hx Influenza Vaccination/Date Given: Yes Hx Pneumococcal Vaccination/Date Given: Yes Immunizations Up to Date: No Travel Risk - International Travel Have you traveled outside of the country in past 3 weeks: No - Coronavirus Screening Symptoms: Cough: New Onset, Shortness of Breath, Headaches/Body Aches/Fatigue Close contact with a COVID-19 positive Pt in past 14-21 Days: Yes - Review of Systems Constitutional: No Symptoms, No Fever, No Chills Eyes: No Symptoms Ears, Nose, & Throat: No Symptoms Respiratory: No Symptoms, No Cough, No Dyspnea Cardiac: No Symptoms, No Chest Pain, No Edema, No Syncope Abdominal/Gastrointestinal: No Symptoms, No Abdominal Pain, No Nausea, No Vomiting, No Diarrhea Genitourinary Symptoms: No Symptoms, No Dysuria Musculoskeletal: No Symptoms, No Back Pain, No Neck Pain Skin: No Symptoms, No Rash Neurological: No Symptoms, No Dizziness, No Focal Weakness, No Sensory Changes Psychological: No Symptoms Endocrine: No Symptoms Hematologic/Lymphatic: No Symptoms Immunological/Allergic: No Symptoms All Other Systems: Reviewed and Negative - Past Medical History Pertinent Past Medical History: Yes Neurological History: Migraines, Seizures, TIA ENT History: No Pertinent History Cardiac History: Arrhythmia, Hypertension, Other Respiratory History: COPD, Pneumonia, Sleep Apnea Endocrine Medical History: Diabetes Type II Musculoskeletal History: Osteoarthritis GI Medical History: No Pertinent History History: Renal Disease Psycho-Social History: Anxiety, Depression Female Reproductive Disorders: No Pertinent History Other Medical History: depression, anxiety, viri, cardiomyopathy - Past Surgical History Past Surgical History: Yes Neuro Surgical History: No Pertinent History Cardiac: No Pertinent History Respiratory: No Pertinent History Gastrointestinal: Cholecystectomy Genitourinary: No Pertinent History Musculoskeletal: No Pertinent History Female Surgical History: Section Other Surgical History: colonoscopy - Social History Smoking Status: Current every day smoker How long have you smoked: 45 years Exposure to second hand smoke: Yes Drug Use: marijuana Patient Lives Alone: No Significant Family History: no pertinent family hx - Female History Hx Now: No - Nursing Vital Signs Nursing Vital Signs: Initial Vital Signs Temperature 98.0 F 02/25/20 22:37 Pulse Rate 82 02/25/20 22:37 Respiratory Rate 24 02/25/20 22:37 Blood Pressure 193/101 02/25/20 22:37 O2 Sat by Pulse Oximetry 97 02/25/20 22:37 Pain Scale Pain Intensity 5 - Physical Exam General Appearance: no apparent distress, alert Eye Exam: PERRL/EOMI, eyes nml inspection Ears, Nose, Throat Exam: normal ENT inspection, TMs normal, pharynx normal, moist mucous membranes Neck Exam: normal inspection, non-tender, supple, full range of motion Respiratory Exam: normal breath sounds, lungs clear, prolonged expirations, wheezing, No respiratory distress Cardiovascular Exam: regular rate/rhythm, normal heart sounds Gastrointestinal/Abdomen Exam: soft, No tenderness Back Exam: normal inspection, No CVA tenderness, No vertebral tenderness Extremity Exam: normal inspection, normal range of motion Neurologic Exam: alert, oriented x 3, cooperative, normal mood/affect, sensation nml, No motor deficits Skin Exam: normal color, warm, dry, No rash Lymphatic Exam: No adenopathy SpO2 Interpretation: normal SpO2: 96 O2 Delivery: Room Air - Course Nursing assessment & vital signs reviewed: Yes EKG Interpreted by Me: RATE ([id number]), Sinus Rhythm, NORMAL AXIS, NORMAL INTERVALS - Radiology Exams Chest X-ray Interpretation: Interpreted by me (Normal chest x-ray. No infiltrate or consolidation. Normal cardiac silhouette. No pleural effusion.) Ordered Tests: Active Orders 24 hr Category Date Time Status Press Hand Supervisor STAT Care 02/25/20 23:01 Active EKG-ER Only STAT Care 02/25/20 23:00 Active IV Insertion STAT Care 02/25/20 23:00 Active Pulse Oximetry (ED) STAT Care 02/25/20 23:00 Active CHEST 1 VIEW (PORTABLE) Stat Exams 02/25/20 23:19 Taken CBC W DIFF Stat Lab 02/25/20 23:25 Completed CMP Stat Lab 02/25/20 23:25 Completed D-DIMER QUANTITATIVE Stat Lab 02/25/20 23:25 Completed TROPONIN Q3H Lab 02/25/20 23:25 Completed TROPONIN Q3H Lab 02/26/20 02:00 Ordered TROPONIN Q3H Lab 02/26/20 05:00 Ordered TROPONIN Q3H Lab 02/26/20 08:00 Ordered TROPONIN Q3H Lab 02/26/20 11:00 Ordered Lab/Rad Data: Laboratory Result Diagrams 02/25/20 23:25 02/25/20 23:25 Laboratory Results 02/25/20 02/25/20 02/25/20 Range/Units 23:25 23:25 23:25 WBC (4.0-10.5) K/mm3 RBC (4.1-5.4) M/mm3 Hgb (12.0-16.0) gm/dl Hct (35-47) % MCV (78-100) fl MCH (26-32) pg MCHC (32-36) g/dl RDW (11.5-14.0) % Plt Count (150-450) K/mm3 MPV (7.5-11.0) fl Gran % (36.0-66.0) % Eos # (Auto) (0-0.5) Absolute Lymphs (auto) (1.0-4.6) Absolute Monos (auto) (0.0-1.3) Lymphocytes % (24.0-44.0) % Monocytes % (0.0-12.0) % Eosinophils % (0.00-5.0) % Basophils % (0.0-0.4) % Absolute Granulocytes (1.4-6.9) Basophils # (0-0.4) D-Dimer 511 H* (215-500) ng/mL Sodium 142 (137-145) mmol/L Potassium 3.9 (3.5-5.1) mmol/L Chloride 111 H (98-107) mmol/L Carbon Dioxide 25 (22-30) mmol/L Anion Gap 9.5 (5-15) MEQ/L BUN 21 H (7-17) mg/dL Creatinine 0.64 (0.52-1.04) mg/dL Estimated GFR > 60.0 ML/MIN Glucose 115 H (74-106) mg/dL Calcium 9.2 (8.4-10.2) mg/dL Total Bilirubin 0.30 (0.2-1.3) mg/dL AST 19 (14-36) U/L ALT 18 (0-35) U/L Alkaline Phosphatase 54 (38-126) U/L Troponin I < 0.012 (0.000-0.034) ng/mL Serum Total Protein 6.2 L (6.3-8.2) g/dL Albumin 3.9 (3.5-5.0) g/dL 02/25/20 Range/Units 23:25 WBC 11.2 H (4.0-10.5) K/mm3 RBC 3.41 L (4.1-5.4) M/mm3 Hgb 10.4 L (12.0-16.0) gm/dl Hct 33.1 L (35-47) % MCV 97.1 (78-100) fl MCH 30.5 (26-32) pg MCHC 31.4 L (32-36) g/dl RDW 15.9 H (11.5-14.0) % Plt Count 182 (150-450) K/mm3 MPV 11.1 H (7.5-11.0) fl Gran % 73.3 H (36.0-66.0) % Eos # (Auto) 0.03 (0-0.5) Absolute Lymphs (auto) 2.31 (1.0-4.6) Absolute Monos (auto) 0.64 (0.0-1.3) Lymphocytes % 20.6 L (24.0-44.0) % Monocytes % 5.7 (0.0-12.0) % Eosinophils % 0.3 (0.00-5.0) % Basophils % 0.1 (0.0-0.4) % Absolute Granulocytes 8.21 H (1.4-6.9) Basophils # 0.01 (0-0.4) D-Dimer (215-500) ng/mL Sodium (137-145) mmol/L Potassium (3.5-5.1) mmol/L Chloride (98-107) mmol/L Carbon Dioxide (22-30) mmol/L Anion Gap (5-15) MEQ/L BUN (7-17) mg/dL Creatinine (0.52-1.04) mg/dL Estimated GFR ML/MIN Glucose (74-106) mg/dL Calcium (8.4-10.2) mg/dL Total Bilirubin (0.2-1.3) mg/dL AST (14-36) U/L ALT (0-35) U/L Alkaline Phosphatase (38-126) U/L Troponin I (0.000-0.034) ng/mL Serum Total Protein (6.3-8.2) g/dL Albumin (3.5-5.0) g/dL - Progress Progress: improved Air Movement: good Progress Note: 02/26/20 00:15 Patient reassessed. She feels well. No coughing observed. Chest x-ray clear. Troponin negative. EKG shows normal sinus rhythm. D-dimer positive at 511. Patient refused CTA chest. AMA form completed. Patient is of sound mind. Patient is appropriate to make informed independent medical decisions. Patient understand that leaving AMA may result in delayed diagnosis, increased risk mor bidity, mortality, short and long-term disability including . Patient understands she may return to our ED at anytime for evaluation. Patient agrees to follow-up with her primary care doctor for reevaluation within 48 hours. Blood Culture(s) Obtained: No Antibiotics given: No Counseled pt/family regarding: lab results, diagnosis, need for follow-up, rad results - Departure Departure Disposition: AMA Clinical Impression: Chest pain, Cough Condition: Stable Critical Care Time: No Referrals: SHERIF JACKSON [Primary Care Provider] - Additional Instructions: Discharge/Care Plan JULIA ERICKSON was seen on 02/26/20 in the Emergency Room. The patient was counseled regarding Diagnosis,Lab results, Imaging studies, need for follow up and when to return to the Emergency Room. Prescriptions given: Discharge Note I have spoken with the patient and/or caregivers. I have explained the patient's condition, diagnosis and treatment plan based on the information available to me at this time. I have answered the patient's and/or caregiver's questions and addressed any concerns. The patient and/or caregivers have as good understanding of the patient's diagnosis, condition and treatment plan as can be expected at this point. The vital signs have been stable. The patient's condition is stable and appropriate for discharge from the emergency department. The patient will pursue further outpatient evaluation with the primary care physician or other designated or consulting physician as outlined in the discharge instructions. The patient and/or caregivers are agreeable to this plan of care and follow-up instructions have been explained in detail. The patient and/or caregivers have received these instruction. The patient/and or caregivers are aware that any significant change in condition or worsening of symptoms shou ld prompt an immediate return to this or the closest emergency department or call 911.
[2020-02-25 23:30] LABS: Absolute Neutrophil Ct (ANC) 8.21 (1.4-6.9); BASOPHIL % 0.1 % (0.0-0.4); Basophil (Absolute #) 0.01 (0-0.4); Eosinophil % 0.3 % (0.00-5.0); Eosinophil (Absolute #) 0.03 (0-0.5); Hematocrit 33.1 % (35-47); Hemoglobin 10.4 gm/dl (12.0-16.0); Lymphocyte (Absolute #) 2.31 (1.0-4.6); Lymphocytes % 20.6 % (24.0-44.0); Mean Cell Volume 97.1 fl (78-100); Mean Corpuscular Hemoglobin 30.5 pg (26-32); Mean Corpuscular Hgb Concent. 31.4 g/dl (32-36); Mean Platelet Volume 11.1 fl (7.5-11.0); Monocyte (Absolute #) 0.64 (0.0-1.3); Monocytes % 5.7 % (0.0-12.0); Neutrophil % 73.3 % (36.0-66.0); Platelet Count 182 K/mm3 (150-450); Red Blood Count 3.41 M/mm3 (4.1-5.4); Red Cell Distribution Width 15.9 % (11.5-14.0); White Blood Count 11.2 K/mm3 (4.0-10.5)
[2020-02-25 23:45] LABS: ALBUMIN 3.9 g/dL (3.5-5.0); ALKALINE PHOSPHATASE 54 U/L (38-126); ANION GAP 9.5 MEQ/L (5-15); BLOOD UREA NITROGEN 21 mg/dL (7-17); CHLORIDE 111 mmol/L (98-107); Calcium 9.2 mg/dL (8.4-10.2); Carbon Dioxide 25 mmol/L (22-30); Creatinine 1 0.64 mg/dL (0.52-1.04); EST GLOMERULAR FILTRATION RATE > 60.0 ML/MIN; Glucose 115 mg/dL (74-106); Potassium 3.9 mmol/L (3.5-5.1); SGOT/AST 19 U/L (14-36); SGPT/ALT 18 U/L (0-35); SODIUM 142 mmol/L (137-145); Total Protein 6.2 g/dL (6.3-8.2)
[2020-02-25 23:46] VITALS: O2SAT 96
[2020-02-26 00:32] VITALS: BP 164/84; PULSE 83
--- NOTE | 2020-02-26 09:07 | XRAY ---
Indication: Cough and sore throat. Suspect Covid 19. Comparison: February 12, 2020. Portable apical lordotic chest again demonstrates normal heart and lungs. Bony thorax intact.
== END 2020-02-26 00:30 | disposition home or self-care (01) ==
LOC: ED 22:31
DX: R07.9 Chest pain, unspecified (principal); R05 Cough
CPT/HCPCS: 36000; 36415; 71045; 80053; 84484; 85025; 85379; 93005; 93041; 94760; 99284

== ENCOUNTER 2020-03-02 17:15 | Emergency (ER) | payer OTHER ==
[2020-03-02] MEDS ORDERED: BABY ASPIRIN 81 MG CHEW PO ONE (17:21)
--- NOTE | 2020-03-02 17:21 | ERPHSYRPT ---
- History of Present Illness Time Seen by Provider: 03/02/20 17:20 Historian: patient, EMS Exam Limitations: no limitations Physician History: This is a 59-year-old white female who has history of hypertension, seizures, renal failure that is chronic. She has a harbormaster, Dr. Bucio, who she has an appointment with tomorrow. She was having some chest pain earlier today she took her medications which included one aspirin. The chest pain was resolving prior to ems arrival. here she has no cp. denies soa, abd pain, and fever. here in this ED on 02/25/20, she was dx with cp, cough. work up negative. pt here often for anxiety issues. Patient refused CAT scan of the chest during her last visit. Timing/Duration: today Activities at Onset: none Quality: sharpness Location: substernal, central Chest Pain Radiation: no radiation Severity of Pain-Max: mild Severity of Pain-Current: none Associated Symptoms: denies symptoms Prior Chest Pain/Cardiac Workup: recently seen/treated Nitro Today/Relief: no nitro taken today Aspirin Treatment Today: 81 mg x 3 Allergies/Adverse Reactions: lisinopril Allergy (Verified 03/02/20 17:34) Home Medications: Fluticasone/Vilanterol [Breo Ellipta 100-25 Mcg INH] 1 each IH DAILY 03/09/16 [History] Fluticasone Propionate [Flonase NASAL] 1 spray NS DAILY 03/13/16 [History] Gabapentin [Neurontin] 900 mg PO TID 09/29/16 [History] Metformin HCl [Glucophage] 1,000 mg PO BID 09/29/16 [History] Potassium Chloride 10 Meq Tab* [Klor Con 10 MEQ] 20 meq PO BID 08/29/17 [History] Cyclobenzaprine HCl 10 mg [Cyclobenzaprine 10 MG] 5 mg PO BID 02/20/18 [History] Hydralazine HCl 100 mg PO TID 02/20/18 [History] Albuterol 8 gm Mdi Hfa [Ventolin Hfa MDI] 108 mcg IH Q6HPRN PRN 11/07/18 [History] Albuterol Sulfate 2.5 mg IH TID PRN 11/07/18 [History] Atorvastatin Calcium 80 mg PO DAILY 11/07/18 [History] Ergocalciferol (Vitamin D2) [Vitamin D2] 50,000 unit PO DIRECTIONS UNKNOWN 11/07/18 [History] Loratadine [Allergy] 10 mg PO DAILY 11/07/18 [History] Losartan Potassium 50 mg [Cozaar 50 MG] 100 mg PO DAILY 11/07/18 [History] Metoprolol Succinate 50 mg [Toprol Xl 50 MG] 50 mg PO DAILY 11/07/18 [History] Insulin Lispro [Admelog Solostar] 20 units SQ DAILY 02/09/20 [History] Omeprazole 1 cap PO DAILY 02/09/20 [History] Azithromycin 500 mg PO DAILY 02/25/20 [History] Baclofen 10 mg PO TID 02/25/20 [History] Prednisone 20 mg PO DAILY 02/25/20 [History] Hx Tetanus, Diphtheria Vaccination/Date Given: No Hx Influenza Vaccination/Date Given: Yes Hx Pneumococcal Vaccination/Date Given: Yes Travel Risk - International Travel Have you traveled outside of the country in past 3 weeks: No - Coronavirus Screening Are you exhibiting any of the following symptoms?: No Close contact with a COVID-19 positive Pt in past 14-21 Days: No - Review of Systems Constitutional: No Symptoms Eyes: No Symptoms Ears, Nose, & Throat: No Symptoms Respiratory: No Symptoms Cardiac: Chest Pain Abdominal/Gastrointestinal: No Symptoms Genitourinary Symptoms: No Symptoms Musculoskeletal: No Symptoms Skin: No Symptoms Neurological: No Symptoms Psychological: No Symptoms Endocrine: No Symptoms Hematologic/Lymphatic: No Symptoms Immunological/Allergic: No Symptoms All Other Systems: Reviewed and Negative - Past Medical History Pertinent Past Medical History: Yes Neurological History: Migraines, Seizures, TIA ENT History: No Pertinent History Cardiac History: Arrhythmia, Hypertension, Other Respiratory History: COPD, Pneumonia, Sleep Apnea Endocrine Medical History: Diabetes Type II Musculoskeletal History: Osteoarthritis GI Medical History: No Pertinent History History: Renal Disease Psycho-Social History: Anxiety, Depression Female Reproductive Disorders: No Pertinent History Other Medical History: depression, anxiety, viri, cardiomyopathy - Past Surgical History Past Surgical History: Yes Neuro Surgical History: No Pertinent History Cardiac: No Pertinent History Respiratory: No Pertinent History Gastrointestinal: Cholecystectomy Genitourinary: No Pertinent History Musculoskeletal: No Pertinent History Female Surgical History: Section Other Surgical History: colonoscopy - Social History Smoking Status: Current every day smoker How long have you smoked: 45 years Exposure to second hand smoke: Yes Drug Use: marijuana Patient Lives Alone: No Significant Family History: no pertinent family hx - Nursing Vital Signs Nursing Vital Signs: Initial Vital Signs Temperature 98.1 F 03/02/20 17:23 Pulse Rate 75 03/02/20 17:23 Respiratory Rate 16 03/02/20 17:23 Blood Pressure 146/53 03/02/20 17:23 O2 Sat by Pulse Oximetry 100 03/02/20 17:23 Pain Scale Pain Intensity 10 - Physical Exam General Appearance: no apparent distress, alert, anxiety Eye Exam: PERRL/EOMI, eyes nml inspection Ears, Nose, Throat Exam: normal ENT inspection, moist mucous membranes Neck Exam: normal inspection, non-tender, supple, full range of motion Respiratory Exam: normal breath sounds, lungs clear, airway intact, No chest tenderness, No respiratory distress Cardiovascular Exam: regular rate/rhythm, normal heart sounds, normal peripheral pulses Gastrointestinal/Abdomen Exam: soft, normal bowel sounds, No tenderness Pelvic Exam: not done Rectal Exam: not done Back Exam: normal inspection, normal range of motion, No CVA tenderness, No vertebral tenderness Extremity Exam: normal inspection, normal range of motion, pelvis stable Neurologic Exam: alert, oriented x 3, cooperative, nml cerebellar function, nml station & gait, sensation nml Skin Exam: normal color, warm, dry Lymphatic Exam: No adenopathy SpO2 Interpretation: normal O2 Delivery: Room Air - Course Nursing assessment & vital signs reviewed: Yes EKG Interpreted by Me: RATE (69), Sinus Rhythm, NORMAL AXIS, NORMAL INTERVALS, NORMAL QRS, Other (There are no acute ischemic changes on this EKG. This is not a change from comparison EKG dated 02/25/2020) Ordered Tests: Active Orders 24 hr Category Date Time Status Lab Technologist STAT Care 03/02/20 17:21 Active EKG-ER Only STAT Care 03/02/20 17:21 Active IV Insertion STAT Care 03/02/20 17:21 Active CHEST 1 VIEW (PORTABLE) Stat Exams 03/02/20 17:21 Taken CBC W DIFF Stat Lab 03/02/20 18:00 Completed CMP Stat Lab 03/02/20 18:00 Received Manual Differential NC Stat Lab 03/02/20 18:00 Completed NT PRO BNP Stat Lab 03/02/20 18:00 Received PROTIME WITH INR Stat Lab 03/02/20 18:00 Completed TROPONIN Q3H Lab 03/02/20 18:00 Received TROPONIN Q3H Lab 03/02/20 20:30 Ordered TROPONIN Q3H Lab 03/02/20 23:30 Ordered TROPONIN Q3H Lab 03/03/20 02:30 Ordered TROPONIN Q3H Lab 03/03/20 05:30 Ordered Medication Summary Discontinued Medications Generic Name Dose Route Start Last Admin Trade Name Comfort PRN Reason Stop Dose Admin Aspirin 324 mg 03/02/20 17:21 03/02/20 17:46 Baby Aspirin 81 Mg Chew PO 03/02/20 17:22 Not Given STAT ONE Lab/Rad Data: Laboratory Result Diagrams 03/02/20 18:00 Laboratory Results 03/02/20 03/02/20 Range/Units 18:00 18:00 WBC 12.2 H (4.0-10.5) K/mm3 RBC 3.47 L (4.1-5.4) M/mm3 Hgb 10.7 L (12.0-16.0) gm/dl Hct 33.8 L (35-47) % MCV 97.4 (78-100) fl MCH 30.8 (26-32) pg MCHC 31.7 L (32-36) g/dl RDW 15.8 H (11.5-14.0) % Plt Count 199 (150-450) K/mm3 MPV 11.4 H (7.5-11.0) fl PT 11.1 (9.95-12.35) SECONDS INR 0.98 (0.8-3.0) - Progress Progress: re-examined, unchanged Air Movement: good Progress Note: 03/02/20 18:25 Medical decision making: This patient was evaluated and work-up was ordered. The patient is now refusing to stay. I explained to her that this would be AGAINST MEDICAL ADVICE. She understands that her condition may worsen and that worsening condition could lead to immediate . Patient understands the importance of staying to complete her work-up. She refuses to do so. We will have her sign an AMA form. Blood Culture(s) Obtained: No Antibiotics given: No - Departure Departure Disposition: AMA Clinical Impression: Chest pain Condition: Stable Critical Care Time: No Referrals: SHERIF JACKSON [Primary Care Provider] - Additional Instructions: Return to the emergency department if your condition worsens. Keep your appointment with your harbormaster tomorrow.
[2020-03-02 18:08] LABS: Hematocrit 33.8 % (35-47); Hemoglobin 10.7 gm/dl (12.0-16.0); Mean Cell Volume 97.4 fl (78-100); Mean Corpuscular Hemoglobin 30.8 pg (26-32); Mean Corpuscular Hgb Concent. 31.7 g/dl (32-36); Mean Platelet Volume 11.4 fl (7.5-11.0); Platelet Count 199 K/mm3 (150-450); Red Blood Count 3.47 M/mm3 (4.1-5.4); Red Cell Distribution Width 15.8 % (11.5-14.0); White Blood Count 12.2 K/mm3 (4.0-10.5)
[2020-03-02 18:16] LABS: INR 0.98 (0.8-3.0); PROTIME 11.1 SECONDS (9.95-12.35)
[2020-03-02 18:29] LABS: ALBUMIN 4.1 g/dL (3.5-5.0); ALKALINE PHOSPHATASE 54 U/L (38-126); ANION GAP 12.7 MEQ/L (5-15); BLOOD UREA NITROGEN 35 mg/dL (7-17); CHLORIDE 110 mmol/L (98-107); Calcium 9.3 mg/dL (8.4-10.2); Carbon Dioxide 21 mmol/L (22-30); Creatinine 1 0.79 mg/dL (0.52-1.04); EST GLOMERULAR FILTRATION RATE > 60.0 ML/MIN; Glucose 109 mg/dL (74-106); NT PRO BNP 403 pg/mL (0-900); Potassium 4.6 mmol/L (3.5-5.1); SGOT/AST 22 U/L (14-36); SGPT/ALT 20 U/L (0-35); SODIUM 139 mmol/L (137-145); Total Protein 6.7 g/dL (6.3-8.2)
[2020-03-02 18:46] VITALS: BP 140/64; PULSE 63; O2SAT 98
[2020-03-02 18:51] LABS: Lymphocytes 25 % (24-44); Neutrophils 75 % (36.0-66.0); Platelet Estimate NORMAL (NORMAL); Total Cells Counted 100
--- NOTE | 2020-03-03 08:39 | XRAY ---
Indication: Chest pain. Comparison: February 25, 2020. Portable apical lordotic chest again demonstrates normal heart and lungs with a few incidental tiny calcified granuloma. Bony thorax intact. No new/acute findings.
== END 2020-03-02 18:45 | disposition home or self-care (01) ==
LOC: ED 17:15
DX: R07.9 Chest pain, unspecified (principal)
CPT/HCPCS: 36000; 36415; 71045; 80053; 83880; 84484; 85025; 85610; 93005; 93041; 99284

== ENCOUNTER 2020-04-07 18:16 | Emergency (ER) | payer OTHER ==
[2020-04-07 18:56] LABS: Absolute Neutrophil Ct (ANC) 13.06 (1.4-6.9); BASOPHIL % 0.2 % (0.0-0.4); Basophil (Absolute #) 0.03 (0-0.4); Eosinophil % 0.1 % (0.00-5.0); Eosinophil (Absolute #) 0.02 (0-0.5); Hematocrit 32.5 % (35-47); Hemoglobin 10.6 gm/dl (12.0-16.0); Lymphocyte (Absolute #) 2.62 (1.0-4.6); Lymphocytes % 15.5 % (24.0-44.0); Mean Cell Volume 93.9 fl (78-100); Mean Corpuscular Hemoglobin 30.6 pg (26-32); Mean Corpuscular Hgb Concent. 32.6 g/dl (32-36); Mean Platelet Volume 11.2 fl (7.5-11.0); Monocyte (Absolute #) 1.22 (0.0-1.3); Monocytes % 7.2 % (0.0-12.0); Platelet Count 212 K/mm3 (150-450); Red Blood Count 3.46 M/mm3 (4.1-5.4)
[2020-04-07 19:08] LABS: ALBUMIN 4.5 g/dL (3.5-5.0); ALKALINE PHOSPHATASE 70 U/L (38-126); ANION GAP 12.3 MEQ/L (5-15); BLOOD UREA NITROGEN 28 mg/dL (7-17); CHLORIDE 115 mmol/L (98-107); Calcium 9.1 mg/dL (8.4-10.2); Carbon Dioxide 18 mmol/L (22-30); Creatinine 1 1.52 mg/dL (0.52-1.04); EST GLOMERULAR FILTRATION RATE 37.5 ML/MIN; Glucose 143 mg/dL (74-106); Potassium 4.1 mmol/L (3.5-5.1); SGOT/AST 38 U/L (14-36); SGPT/ALT 19 U/L (0-35); SODIUM 142 mmol/L (137-145); Total Protein 7.3 g/dL (6.3-8.2)
[2020-04-07 19:19] LABS: ACETAMINOPHEN < 10 ug/ml (10-30); ETHYL ALCOHOL < 10 mg/dL (0-10); SALICYLATE < 1.0 mg/dL (2-20)
--- NOTE | 2020-04-07 20:30 | ERPHSYRPT ---
- History of Present Illness Time Seen by Provider: 04/07/20 18:30 Source: patient Exam Limitations: no limitations Patient Subjective Stated Complaint: pt here with police. they are worried about her mental health, they state she is seeing things and worried about kids ge tting shot in the field, pt was recently dx from [facility] Nursing Assessment: pt alert, excessive talking, fight of ideas, crying off and on, anxious,restless. she is worried about children getting hurt. she believes they will get shot. she believes people want her in shelter so they can live in her apartment. pt she talks about not being able to get a ride home, but police states she was in her car driving and honking at people Physician History: Patient is a 59-year-old female brought into our ED via police for evaluation of suspected acute psychosis. Per report patient has been seeing things. Patient has been voicing to random people on the street that she believes children will be shot in a field. Patient is exhibiting flight of ideas. Labile mood. Patient intermittently cries. Her speech is pressured. She appears very anx ious. Patient voices that people want to place her in shelter to moving to her apartment. Patient denies homicidal suicidal ideation. Symptoms are mild to moderate in intensity. No specific worsening or improving factors. Patient voices no other complaints or concerns at this time. Timing/Duration: today Severity of Symptoms-Max: moderate Severity of Symptoms-Current: moderate Context related to: other Suicidal thoughts: other Associated Symptoms: hallucinating Previous symptoms: same symptoms as today Allergies/Adverse Reactions: lisinopril Allergy (Verified 04/07/20 18:35) Home Medications: Fluticasone/Vilanterol [Breo Ellipta 100-25 Mcg INH] 1 each IH DAILY 03/09/16 [History] Fluticasone Propionate [Flonase NASAL] 1 spray NS DAILY 03/13/16 [History] Gabapentin [Neurontin] 900 mg PO TID 09/29/16 [History] Metformin HCl [Glucophage] 1,000 mg PO BID 09/29/16 [History] Potassium Chloride 10 Meq Tab* [Klor Con 10 MEQ] 20 meq PO BID 08/29/17 [ History] Cyclobenzaprine HCl 10 mg [Cyclobenzaprine 10 MG] 5 mg PO BID 02/20/18 [History] Hydralazine HCl 100 mg PO TID 02/20/18 [History] Albuterol 8 gm Mdi Hfa [Ventolin Hfa MDI] 108 mcg IH Q6HPRN PRN 11/07/18 [History] Albuterol Sulfate 2.5 mg IH TID PRN 11/07/18 [History] Atorvastatin Calcium 80 mg PO DAILY 11/07/18 [History] Ergocalciferol (Vitamin D2) [Vitamin D2] 50,000 unit PO DIRECTIONS UNKNOWN 11/07/18 [History] Loratadine [Allergy] 10 mg PO DAILY 11/07/18 [History] Losartan Potassium 50 mg [Cozaar 50 MG] 100 mg PO DAILY 11/07/18 [History] Metoprolol Succinate 50 mg [Toprol Xl 50 MG] 50 mg PO DAILY 11/07/18 [History] Insulin Lispro [Admelog Solostar] 20 units SQ DAILY 02/09/20 [History] Omeprazole 1 cap PO DAILY 02/09/20 [History] Baclofen 10 mg PO TID 02/25/20 [History] Prednisone 20 mg PO DAILY 02/25/20 [History] Hx Tetanus, Diphtheria Vaccination/Date Given: No Hx Influenza Vaccination/Date Given: Yes Hx Pneumococcal Vaccination/Date Given: Yes Immunizations Up to Date: Yes Travel Risk - International Travel Have you traveled outside of the country in past 3 weeks: No - Coronavirus Screening Are you exhibiting any of the following symptoms?: No Close contact with a COVID-19 positive Pt in past 14-21 Days: No - Past Medical History Pertinent Past Medical History: Yes Neurological History: Migraines, Seizures, TIA ENT History: No Pertinent History Cardiac History: Arrhythmia, Hypertension, Other Respiratory History: COPD, Pneumonia, Sleep Apnea Endocrine Medical History: Diabetes Type II Musculoskeletal History: Osteoarthritis GI Medical History: No Pertinent History History: Renal Disease Psycho-Social History: Anxiety, Depression Female Reproductive Disorders: No Pertinent History Other Medical History: depression, anxiety, viri, cardiomyopathy - Past Surgical History Past Surgical History: Yes Neuro Surgical History: No Pertinent History Cardiac: No Pertinent History Respiratory: No Pertinent History Gastrointestinal: Cholecystectomy Genitourinary: No Pertinent History Musculoskeletal: No Pertinent History Female Surgical History: Section Other Surgical History: colonoscopy - Social History Smoking Status: Current every day smoker How long have you smoked: 45 years Exposure to second hand smoke: Yes Drug Use: marijuana Patient Lives Alone: Yes Significant Family History: no pertinent family hx - Female History Hx Last Menstrual Period: post Hx Now: No - Review of Systems Constitutional: No Symptoms, No Fever, No Chills Eyes: No Symptoms Ears, Nose, & Throat: No Symptoms Respiratory: No Symptoms, No Cough, No Dyspnea Cardiac: No Symptoms, No Chest Pain, No Edema, No Syncope Abdominal/Gastrointestinal: No Symptoms, No Abdominal Pain, No Nausea, No Vomiting, No Diarrhea Genitourinary Symptoms: No Symptoms, No Dysuria Musculoskeletal: No Symptoms, No Back Pain, No Neck Pain Skin: No Symptoms, No Rash Neurological: No Symptoms, No Dizziness, No Focal Weakness, No Sensory Changes Psychological: No Symptoms Endocrine: No Symptoms Hematologic/Lymphatic: No Symptoms Immunological/Allergic: No Symptoms All Other Systems: Reviewed and Negative - Nursing Vital Signs Nursing Vital Signs: Initial Vital Signs Temperature 96.8 F 04/07/20 18:26 Pulse Rate 82 04/07/20 18:26 Respiratory Rate 22 04/07/20 18:26 Blood Pressure 99/51 04/07/20 18:26 O2 Sat by Pulse Oximetry 92 L 04/07/20 18:26 Pain Scale Pain Intensity 0 - Physical Exam General Appearance: no apparent distress Eyes, Ears, Nose, Throat Exam: normal ENT inspection, moist mucous membranes Neck Exam: normal inspection, non-tender, supple Respiratory Exam: normal breath sounds, lungs clear, No respiratory distress Cardiovascular Exam: regular rate/rhythm, No edema Gastrointestinal/Abdominal Exam: soft, No tenderness, No distention Extremities Exam: normal inspection, normal range of motion, No evidence of injury, No edema Current Suicidality: denies suicide plan 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: alert, relay operator II-XII nml as tested, oriented x 3 Appearance: appropriate appearance, impaired insight Behavior/Eye Contact/Speech: alert & cooperative, cooperative, good eye contact (Pressured speech) Skin Exam: normal color, warm, dry, No rash SpO2 Interpretation: normal SpO2: 95 O2 Delivery: Room Air - Course Nursing assessment & vital signs reviewed: Yes Ordered Tests: Active Orders 24 hr Category Date Time Status ACETAMINOPHEN Stat Lab 04/07/20 18:52 Completed BMP Stat Lab 04/07/20 23:11 Completed CBC W DIFF Stat Lab 04/07/20 18:52 Completed CMP Stat Lab 04/07/20 18:52 Completed ETHYL ALCOHOL Stat Lab 04/07/20 18:52 Completed SALICYLATE Stat Lab 04/07/20 18:52 Completed UA W/RFX UR CULTURE Stat Lab 04/07/20 21:42 Completed Urine Triage Profile Stat Lab 04/07/20 21:42 Completed Medication Summary Discontinued Medications Generic Name Dose Route Start Last Admin Trade Name Comfort PRN Reason Stop Dose Admin Sodium Chloride 1,000 mls @ 999 mls/hr 04/07/20 21:08 04/07/20 23:13 Sodium Chloride 0.9% 1000 Ml IV 04/07/20 22:08 Infused .Q1H1M STA Infusion Sodium Chloride Confirm 04/07/20 21:39 Sodium Chloride 0.9% 1000 Ml Administered 04/07/20 21:40 Dose 1,000 mls @ ud .ROUTE .STK-MED ONE Lab/Rad Data: Laboratory Result Diagrams 04/07/20 18:52 04/07/20 23:11 Laboratory Results 04/08/20 04/07/20 04/07/20 Range/Units 00:51 23:11 21:42 WBC (4.0-10.5) K/mm3 RBC (4.1-5.4) M/mm3 Hgb (12.0-16.0) gm/dl Hct (35-47) % MCV (78-100) fl MCH (26-32) pg MCHC (32-36) g/dl RDW (11.5-14.0) % Plt Count (150-450) K/mm3 MPV (7.5-11.0) fl Gran % (36.0-66.0) % Eos # (Auto) (0-0.5) Absolute Lymphs (auto) (1.0-4.6) Absolute Monos (auto) (0.0-1.3) Lymphocytes % (24.0-44.0) % Monocytes % (0.0-12.0) % Eosinophils % (0.00-5.0) % Basophils % (0.0-0.4) % Absolute Granulocytes (1.4-6.9) Basophils # (0-0.4) Sodium 139 (137-145) mmol/L Potassium 3.7 (3.5-5.1) mmol/L Chloride 114 H (98-107) mmol/L Carbon Dioxide 21 L (22-30) mmol/L Anion Gap 8.3 (5-15) MEQ/L BUN 28 H (7-17) mg/dL Creatinine 1.35 H (0.52-1.04) mg/dL Estimated GFR 43.0 ML/MIN Glucose 121 H (74-106) mg/dL Calcium 8.0 L (8.4-10.2) mg/dL Total Bilirubin (0.2-1.3) mg/dL AST (14-36) U/L ALT (0-35) U/L Alkaline Phosphatase (38-126) U/L Serum Total Protein (6.3-8.2) g/dL Albumin (3.5-5.0) g/dL Urine Color (YELLOW) Urine Appearance (CLEAR) Urine pH (5-6) Ur Specific Hamilton (1.005-1.025) Urine Protein (Negative) Urine Ketones (NEGATIVE) Urine Blood (0-5) Irineo/ul Urine Nitrite (NEGATIVE) Urine Bilirubin (NEGATIVE) Urine Urobilinogen (0-1) mg/dL Ur Leukocyte Esterase (NEGATIVE) Urine WBC (Auto) (0-5) /HPF Urine RBC (Auto) (0-2) /HPF U Hyaline Cast (Auto) (0-2) /LPF U Epithel Cells (Auto) (FEW) /HPF Urine Bacteria (Auto) (NEGATIVE) /HPF Urine Mucus (Auto) (NEGATIVE) /HPF Urine Culture Reflexed (NO) Urine Glucose (NEGATIVE) mg/dL Salicylates (2-20) mg/dL Urine Opiates Level NEGATIVE (NEGATIVE) Ur Methadone NEGATIVE (NEGATIVE) Acetaminophen (10-30) ug/ml Urine Barbiturates NEGATIVE (NEGATIVE) Ur Phencyclidine (PCP) NEGATIVE (NEGATIVE) Urine Amphetamine POSITIVE (NEGATIVE) U Benzodiazepine Level POSITIVE (NEGATIVE) Urine Cocaine NEGATIVE (NEGATIVE) Urine Marijuana (THC) POSITIVE (NEGATIVE) Ethyl Alcohol (0-10) mg/dL SARS-CoV-2 (PCR) NEGATIVE (NEGATIVE) 04/07/20 04/07/20 04/07/20 Range/Units 21:42 18:52 18:52 WBC 17.0 H (4.0-10.5) K/mm3 RBC 3.46 L (4.1-5.4) M/mm3 Hgb 10.6 L (12.0-16.0) gm/dl Hct 32.5 L (35-47) % MCV 93.9 (78-100) fl MCH 30.6 (26-32) pg MCHC 32.6 (32-36) g/dl RDW 15.0 H (11.5-14.0) % Plt Count 212 (150-450) K/mm3 MPV 11.2 H (7.5-11.0) fl Gran % 77.0 H (36.0-66.0) % Eos # (Auto) 0.02 (0-0.5) Absolute Lymphs (auto) 2.62 (1.0-4.6) Absolute Monos (auto) 1.22 (0.0-1.3) Lymphocytes % 15.5 L (24.0-44.0) % Monocytes % 7.2 (0.0-12.0) % Eosinophils % 0.1 (0.00-5.0) % Basophils % 0.2 (0.0-0.4) % Absolute Granulocytes 13.06 H (1.4-6.9) Basophils # 0.03 (0-0.4) Sodium 142 (137-145) mmol/L Potassium 4.1 (3.5-5.1) mmol/L Chloride 115 H (98-107) mmol/L Carbon Dioxide 18 L (22-30) mmol/L Anion Gap 12.3 (5-15) MEQ/L BUN 28 H (7-17) mg/dL Creatinine 1.52 H (0.52-1.04) mg/dL Estimated GFR 37.5 ML/MIN Glucose 143 H (74-106) mg/dL Calcium 9.1 (8.4-10.2) mg/dL Total Bilirubin 1.10 (0.2-1.3) mg/dL AST 38 H (14-36) U/L ALT 19 (0-35) U/L Alkaline Phosphatase 70 (38-126) U/L Serum Total Protein 7.3 (6.3-8.2) g/dL Albumin 4.5 (3.5-5.0) g/dL Urine Color MAGAN (YELLOW) Urine Appearance CLOUDY (CLEAR) Urine pH 5.0 (5-6) Ur Specific Hamilton 1.026 (1.005-1.025) Urine Protein >=500 (Negative) Urine Ketones NEGATIVE (NEGATIVE) Urine Blood NEGATIVE (0-5) Irineo/ul Urine Nitrite NEGATIVE (NEGATIVE) Urine Bilirubin NEGATIVE (NEGATIVE) Urine Urobilinogen 2 (0-1) mg/dL Ur Leukocyte Esterase NEGATIVE (NEGATIVE) Urine WBC (Auto) 3-5 (0-5) /HPF Urine RBC (Auto) 0-2 (0-2) /HPF U Hyaline Cast (Auto) >50 (0-2) /LPF U Epithel Cells (Auto) NONE (FEW) /HPF Urine Bacteria (Auto) FEW (NEGATIVE) /HPF Urine Mucus (Auto) MANY (NEGATIVE) /HPF Urine Culture Reflexed NO (NO) Urine Glucose NEGATIVE (NEGATIVE) mg/dL Salicylates < 1.0 L (2-20) mg/dL Urine Opiates Level (NEGATIVE) Ur Methadone (NEGATIVE) Acetaminophen < 10 L (10-30) ug/ml Urine Barbiturates (NEGATIVE) Ur Phencyclidine (PCP) (NEGATIVE) Urine Amphetamine (NEGATIVE) U Benzodiazepine Level (NEGATIVE) Urine Cocaine (NEGATIVE) Urine Marijuana (THC) (NEGATIVE) Ethyl Alcohol < 10 (0-10) mg/dL SARS-CoV-2 (PCR) (NEGATIVE) - Progress Progress: improved Progress Note: 04/08/20 03:04 Patient reassessed. She is calm. Patient resting comfortably in a dark room. Leukocytosis due to steroid for COPD use. Creatinine elevated due to dehydration. IV fluids administered creatinine improved. Dr. Montenegro at [facility] accepted transfer. Patient is aware of plan of care. No indication for further work-up at this time. Vital stable. Counseled pt/family regarding: lab results, diagnosis - Departure Departure Disposition: Release to OR/NDC Clinical Impression: Acute psychosis, Leukocytosis, Creatinine elevation, Dehydration, Proteinuria, Amphetamine abuse, Marijuana smoker Condition: Stable Critical Care Time: No Referrals: SHERIF SAEZ [Primary Care Provider] -
[2020-04-07] MEDS ORDERED: Sodium Chloride 0.9% 1000 ML 1,000 ML IV STA (21:08)
[2020-04-07] MEDS ORDERED: Sodium Chloride 0.9% 1000 ML 1,000 ML ONE (21:39)
[2020-04-07 22:01] LABS: Barbiturate,Urine NEGATIVE (NEGATIVE); Benzodiazepine,Urine POSITIVE (NEGATIVE); Cocaine,Urine NEGATIVE (NEGATIVE); Methadone,Urine NEGATIVE (NEGATIVE); Opiate,Urine NEGATIVE (NEGATIVE); PCP,Urine NEGATIVE (NEGATIVE); THC,Urine POSITIVE (NEGATIVE)
[2020-04-07 22:20] LABS: Appearance CLOUDY (CLEAR); Bacteria FEW /HPF (NEGATIVE); Bilirubin NEGATIVE (NEGATIVE); Blood NEGATIVE Ery/ul (0-5); Glucose NEGATIVE (NEGATIVE); Hyaline Casts >50 /LPF (0-2); Ketones NEGATIVE (NEGATIVE); Leukocyte Esterase NEGATIVE (NEGATIVE); Mucus MANY /HPF (NEGATIVE); Nitrite NEGATIVE (NEGATIVE); Protein,Urine Dip >=500 (Negative); RBC 0-2 /HPF (0-2); Specific Gravity 1.026 (1.005-1.025); Urobilinogen 2 mg/dL (0-1)
[2020-04-07 22:33] LABS: Amphetamine,Urine POSITIVE (NEGATIVE)
[2020-04-07 23:26] LABS: ANION GAP 8.3 MEQ/L (5-15); Creatinine 1 1.35 mg/dL (0.52-1.04); Potassium 3.7 mmol/L (3.5-5.1)
[2020-04-08 03:05] VITALS: BP 104/57; PULSE 62
[2020-04-08 03:11] VITALS: O2SAT 95
== END 2020-04-08 03:30 | disposition short-term general hospital (02) ==
LOC: ED 18:16
DX: F23 Brief psychotic disorder (principal); D72.829 Elevated white blood cell count, unspecified; R74.8 Abnormal levels of other serum enzymes; E86.0 Dehydration; R80.9 Proteinuria, unspecified; F15.10 Other stimulant abuse, uncomplicated; F12.90 Cannabis use, unspecified, uncomplicated; F41.9 Anxiety disorder, unspecified; Z79.899 Other long term (current) drug therapy; I10 Essential (primary) hypertension; G40.909 Epilepsy, unspecified, not intractable, without status epilepticus; J44.9 Chronic obstructive pulmonary disease, unspecified; G47.30 Sleep apnea, unspecified; E11.9 Type 2 diabetes mellitus without complications
CPT/HCPCS: 36000; 36415; 80048; 80053; 80307; 81001; 85025; 96360; 99285; U0003; G0480

== ENCOUNTER 2021-04-14 04:41 | Observation (INO) | payer OTHER ==
[2021-04-14 05:05] LABS: A-aADO2 32; ABG HEMOGLOBIN 10.1; ABG POTASSIUM 4.2 (3.5-5.1); ABG SITE RIGHT BRACHIAL; ALLEN TEST OK? YES; ARTERIAL BLD GAS O2 SATURATION 96.4 % (95-100); ARTERIAL BLOOD GAS BASE EXCESS -0.3 (-2.0-2.0); ARTERIAL BLOOD GAS FIO2 21 %; ARTERIAL BLOOD GAS PCO2 38 mmHg (35-45); ARTERIAL BLOOD GAS PO2 70 mmHg (75-100); ARTERIAL BLOOD GAS pH 7.41 (7.35-7.45); HCO3- 24.1 (22-28); HGB O2 SAT 92.4 g/dF (94-100); Methhemoglobin 1.1 % (1.4-1.5)
--- NOTE | 2021-04-14 05:09 | ERPHSYRPT ---
- History of Present Illness Time Seen by Provider: 04/14/21 04:50 Source: patient Physician History: Patient is a 60-year-old female presents to our ED via EMS for evaluation of unresponsiveness. Per EMS patient was found at home on the floor unresponsive. EMS was called. Patient was diaphoretic. Glucose was 217. Patient received Narcan however she did not respond to Narcan administration. Per EMS patient's last known normal was approximately 930 to 10 PM last night. Patient unable to provide HPI information. Patient opens her eyes to painful stimulation. Patient will push her hand away to sternal rub. Pupils are equal round reactive. Patient breathing spontaneously. Audible wheezing observed. No acute respiratory distress. Vitals are normal. Temperature upon arrival is 96.9. No episodes of vomiting reported. No episodes of diarrhea reported. No reports of chest pain. Timing/Duration: today Severity: moderate Modifying Factors: Improves With: nothing Associated Symptoms: denies symptoms, No nausea, No vomiting Allergies/Adverse Reactions: lisinopril Allergy (Verified 04/07/20 18:35) Home Medications: Fluticasone Propionate [Flonase NASAL] 1 spray NS DAILY 03/13/16 [History] Metformin HCl [Glucophage] 1,000 mg PO BID 09/29/16 [History] Potassium Chloride 10 Meq Tab* [Klor Con 10 MEQ] 20 meq PO BID 08/29/17 [History] Atorvastatin Calcium 80 mg PO HS 11/07/18 [History] Losartan Potassium 50 mg [Cozaar 50 MG] 50 mg PO BID 11/07/18 [History] Metoprolol Succinate 50 mg [Toprol Xl 50 MG] 50 mg PO BID 11/07/18 [History] Clopidogrel Bisulfate 75 mg [PLAVIX 75 MG Tablet] 75 mg PO DAILY 04/14/21 [History] Gabapentin 300 mg [Neurontin 300 mg] 300 mg PO TID 04/14/21 [History] Insulin Glargine,Hum.rec.anlog [Basaglar Kwikpen U-100] 20 units SQ HS 04/14/21 [History] Oxybutynin Chloride 5 mg PO BID 04/14/21 [History] Torsemide 50 mg PO BID 04/14/21 [History] Hx Tetanus, Diphtheria Vaccination/Date Given: No Hx Influenza Vaccination/Date Given: Yes Hx Pneumococcal Vaccination/Date Given: Yes - Review of Systems All Other Systems: Unable due to condition - Past Medical History Pertinent Past Medical History: Yes Neurological History: Migraines, Seizures, TIA ENT History: No Pertinent History Cardiac History: Arrhythmia, Hypertension, Other Respiratory History: COPD, Pneumonia, Sleep Apnea Endocrine Medical History: Diabetes Type II Musculoskeletal History: Osteoarthritis GI Medical History: No Pertinent History History: Renal Disease Psycho-Social History: Anxiety, Depression Female Reproductive Disorders: No Pertinent History Other Medical History: depression, anxiety, viri, cardiomyopathy - Past Surgical History Past Surgical History: Yes Neuro Surgical History: No Pertinent History Cardiac: No Pertinent History Respiratory: No Pertinent History Gastrointestinal: Cholecystectomy Genitourinary: No Pertinent History Musculoskeletal: No Pertinent History Female Surgical History: Section Other Surgical History: colonoscopy - Social History Smoking Status: Current every day smoker How long have you smoked: 45 years Exposure to second hand smoke: Yes Drug Use: marijuana Patient Lives Alone: Yes Significant Family History: no pertinent family hx - Nursing Vital Signs Nursing Vital Signs: Initial Vital Signs Temperature 96.9 F 04/14/21 04:42 Pulse Rate 78 04/14/21 04:42 Respiratory Rate 18 04/14/21 04:42 Blood Pressure 136/86 04/14/21 04:42 O2 Sat by Pulse Oximetry 99 04/14/21 04:42 Pain Scale Pain Intensity 0 - Physical Exam General Appearance: no apparent distress, lethargy Eye Exam: PERRL/EOMI, eyes nml inspection, No scleral icterus Ears, Nose, Throat Exam: normal ENT inspection, TMs normal, pharynx normal, moist mucous membranes Neck Exam: normal inspection, non-tender, supple, full range of motion Respiratory Exam: normal breath sounds, airway intact, wheezing, No respiratory distress Cardiovascular Exam: regular rate/rhythm, normal heart sounds, normal peripheral pulses Gastrointestinal/Abdomen Exam: soft, normal bowel sounds, No tenderness, No mass Back Exam: normal inspection, normal range of motion, No CVA tenderness, No vertebral tenderness Extremity Exam: normal inspection, normal range of motion, pelvis stable Neurologic Exam: other (Unable to perform adequate neuro exam as patient is lethargic.), No facial droop Skin Exam: normal color, warm, dry, No rash Lymphatic Exam: No adenopathy SpO2 Interpretation: normal O2 Delivery: Room Air - Course Nursing assessment & vital signs reviewed: Yes EKG Interpreted by Me: RATE (78), Sinus Rhythm, NORMAL AXIS, NORMAL INTERVALS - CT Exams Head CT Interpretation: Tele-radiologist Report (Right frontal parietal focal encephalomalacia. Left subinsular lacunar versus. Vascular space. No CT evidence of acute territorial infarct. No hemorrhage. No CT findings of acute territorial infarct) Ordered Tests: Active Orders 24 hr Category Date Time Status Commodity Broker STAT Care 04/14/21 04:50 Active EKG-ER Only STAT Care 04/14/21 04:48 Active IV Insertion STAT Care 04/14/21 04:48 Active Pulse Oximetry (ED) STAT Care 04/14/21 04:48 Active CHEST 1 VIEW (PORTABLE) Stat Exams 04/14/21 04:50 Ordered HEAD WITHOUT CONTRAST [CT] Stat Exams 04/14/21 04:51 Taken ACETAMINOPHEN Stat Lab 04/14/21 05:15 Completed ARTERIAL BLOOD GASES Stat Lab 04/14/21 04:59 Completed BLOOD CULTURE Stat Lab 04/14/21 05:20 Received CBC W DIFF Stat Lab 04/14/21 05:15 Completed CK (IN-HOUSE) [CK-Creatinine Phosphokinase] Stat Lab 04/14/21 06:30 Completed CMP Stat Lab 04/14/21 05:15 Completed CULTURE,URINE Stat Lab 04/14/21 05:24 Received ETHYL ALCOHOL Stat Lab 04/14/21 05:15 Completed Lactic Acid Stat Lab 04/14/21 04:59 Completed MAGNESIUM Stat Lab 04/14/21 05:15 Completed TROPONIN Q3H Lab 04/14/21 05:15 Completed TROPONIN Q3H Lab 04/14/21 08:00 Ordered TROPONIN Q3H Lab 04/14/21 11:00 Ordered TROPONIN Q3H Lab 04/14/21 14:00 Ordered TROPONIN Q3H Lab 04/14/21 17:00 Ordered TSH [TSH, 3RD Generation] Stat Lab 04/14/21 05:15 Completed UA W/RFX UR CULTURE Stat Lab 04/14/21 05:24 Completed Urine Triage Profile Stat Lab 04/14/21 05:36 Completed Respiratory Therapy Assessment DAILY RT 04/14/21 05:31 Active Transfer Order Routine Transfer 04/14/21 Ordered Medication Summary Generic Name Dose Route Start Last Admin Trade Name Freq PRN Reason Stop Dose Admin Sodium Chloride 1,000 mls @ 999 mls/hr 04/14/21 06:20 04/14/21 06:24 Sodium Chloride 0.9% 1000 Ml IV 04/14/21 07:20 999 mls/hr .Q1H1M STA Administration Discontinued Medications Generic Name Dose Route Start Last Admin Trade Name Comfort PRN Reason Stop Dose Admin Albuterol/Ipratropium 3 ml 04/14/21 05:31 04/14/21 05:00 Duoneb 0.5-3 Mg/3 Ml Neb IH 04/14/21 05:32 3 ml STAT ONE Administration Ceftriaxone Sodium/Dextrose 1 g in 50 mls @ 100 mls/hr 04/14/21 05:49 04/14/21 06:55 Rocephin 1 Gm-D5w 50 Ml Bag IV 04/14/21 06:18 Infused STAT STA Infusion Ceftriaxone Sodium/Dextrose Confirm 04/14/21 05:53 Rocephin 1 Gm-D5w 50 Ml Bag Administered 04/14/21 05:54 Dose 1 g in 50 mls @ ud IV .STK-MED ONE Sodium Chloride Confirm 04/14/21 06:22 Sodium Chloride 0.9% 1000 Ml Administered 04/14/21 06:23 Dose 1,000 mls @ ud .ROUTE .STK-MED ONE Lab/Rad Data: Laboratory Result Diagrams 04/14/21 05:15 04/14/21 05:15 Laboratory Results 04/14/21 04/14/21 04/14/21 Range/Units 06:30 06:30 05:36 WBC (4.0-10.5) K/mm3 RBC (4.1-5.4) M/mm3 Hgb (12.0-16.0) gm/dl Hct (35-47) % MCV (78-100) fl MCH (26-32) pg MCHC (32-36) g/dl RDW (11.5-14.0) % Plt Count (150-450) K/mm3 MPV (7.5-11.0) fl Gran % (36.0-66.0) % Eos # (Auto) (0-0.5) Absolute Lymphs (auto) (1.0-4.6) Absolute Monos (auto) (0.0-1.3) Lymphocytes % (24.0-44.0) % Monocytes % (0.0-12.0) % Eosinophils % (0.00-5.0) % Basophils % (0.0-0.4) % Absolute Granulocytes (1.4-6.9) Basophils # (0-0.4) Puncture Site pCO2 (35-45) mmHg pO2 (75-100) mmHg Base Excess (-2.0-2.0) O2 Saturation (94-100) g/dF ABG pH (7.35-7.45) ABG HCO3 (22-28) ABG O2 Sat (Measured) (95-100) % Rommel Test A-a Gradient a/A Ratio Hemoglobin Carboxyhemoglobin (0.0-6.9) % THgb Methemoglobin (1.4-1.5) % Potassium (3.5-5.1) Temperature C POC O2 Flow Rate % Sodium (137-145) mmol/L Chloride (98-107) mmol/L Carbon Dioxide (22-30) mmol/L Anion Gap (5-15) MEQ/L BUN (7-17) mg/dL Creatinine (0.52-1.04) mg/dL Estimated GFR ML/MIN Glucose (74-106) mg/dL Lactic Acid (0.4-2.0) Calcium (8.4-10.2) mg/dL Magnesium (1.6-2.3) mg/dL Total Bilirubin (0.2-1.3) mg/dL AST (14-36) U/L ALT (0-35) U/L Alkaline Phosphatase (38-126) U/L Ammonia < 9 L (9-30) umol/L Creatine Kinase 139 H (30-135) U/L Troponin I (0.000-0.034) ng/mL Serum Total Protein (6.3-8.2) g/dL Albumin (3.5-5.0) g/dL TSH 3rd Generation (0.47-4.68) mIU/L Urine Color (YELLOW) Urine Appearance (CLEAR) Urine pH (5-6) Ur Specific [place] (1.005-1.025) Urine Protein (Negative) Urine Ketones (NEGATIVE) Urine Blood (0-5) Irine[place]/ul Urine Nitrite (NEGATIVE) Urine Bilirubin (NEGATIVE) Urine Urobilinogen (0-1) mg/dL Ur Leukocyte Esterase (NEGATIVE) Urine WBC (Auto) (0-5) /HPF Urine RBC (Auto) (0-2) /HPF U Epithel Cells (Auto) (FEW) /HPF Urine Bacteria (Auto) (NEGATIVE) /HPF Urine Mucus (Auto) (NEGATIVE) /HPF Urine Culture Reflexed (NO) Urine Glucose (NEGATIVE) mg/dL Urine Opiates Level NEGATIVE (NEGATIVE) Ur Methadone NEGATIVE (NEGATIVE) Acetaminophen (10-30) ug/ml Urine Barbiturates NEGATIVE (NEGATIVE) Ur Phencyclidine (PCP) NEGATIVE (NEGATIVE) Urine Amphetamine NEGATIVE (NEGATIVE) U Benzodiazepine Level POSITIVE (NEGATIVE) Urine Cocaine NEGATIVE (NEGATIVE) Urine Marijuana (THC) NEGATIVE (NEGATIVE) Ethyl Alcohol (0-10) mg/dL 04/14/21 04/14/21 04/14/21 Range/Units 05:24 05:15 05:15 WBC (4.0-10.5) K/mm3 RBC (4.1-5.4) M/mm3 Hgb (12.0-16.0) gm/dl Hct (35-47) % MCV (78-100) fl MCH (26-32) pg MCHC (32-36) g/dl RDW (11.5-14.0) % Plt Count (150-450) K/mm3 MPV (7.5-11.0) fl Gran % (36.0-66.0) % Eos # (Auto) (0-0.5) Absolute Lymphs (auto) (1.0-4.6) Absolute Monos (auto) (0.0-1.3) Lymphocytes % (24.0-44.0) % Monocytes % (0.0-12.0) % Eosinophils % (0.00-5.0) % Basophils % (0.0-0.4) % Absolute Granulocytes (1.4-6.9) Basophils # (0-0.4) Puncture Site pCO2 (35-45) mmHg pO2 (75-100) mmHg Base Excess (-2.0-2.0) O2 Saturation (94-100) g/dF ABG pH (7.35-7.45) ABG HCO3 (22-28) ABG O2 Sat (Measured) (95-100) % Rommel Test A-a Gradient a/A Ratio Hemoglobin Carboxyhemoglobin (0.0-6.9) % THgb Methemoglobin (1.4-1.5) % Potassium (3.5-5.1) Temperature C POC O2 Flow Rate % Sodium (137-145) mmol/L Chloride (98-107) mmol/L Carbon Dioxide (22-30) mmol/L Anion Gap (5-15) MEQ/L BUN (7-17) mg/dL Creatinine (0.52-1.04) mg/dL Estimated GFR ML/MIN Glucose (74-106) mg/dL Lactic Acid (0.4-2.0) Calcium (8.4-10.2) mg/dL Magnesium (1.6-2.3) mg/dL Total Bilirubin (0.2-1.3) mg/dL AST (14-36) U/L ALT (0-35) U/L Alkaline Phosphatase (38-126) U/L Ammonia (9-30) umol/L Creatine Kinase (30-135) U/L Troponin I < 0.012 (0.000-0.034) ng/mL Serum Total Protein (6.3-8.2) g/dL Albumin (3.5-5.0) g/dL TSH 3rd Generation 2.360 (0.47-4.68) mIU/L Urine Color YELLOW (YELLOW) Urine Appearance SLIGHTLY CLOUDY (CLEAR) Urine pH 5.0 (5-6) Ur Specific [place] 1.008 (1.005-1.025) Urine Protein NEGATIVE (Negative) Urine Ketones NEGATIVE (NEGATIVE) Urine Blood NEGATIVE (0-5) Irineo/ul Urine Nitrite POSITIVE (NEGATIVE) Urine Bilirubin NEGATIVE (NEGATIVE) Urine Urobilinogen NEGATIVE (0-1) mg/dL Ur Leukocyte Esterase LARGE (NEGATIVE) Urine WBC (Auto) 26-50 (0-5) /HPF Urine RBC (Auto) 0-2 (0-2) /HPF U Epithel Cells (Auto) NONE (FEW) /HPF Urine Bacteria (Auto) MANY (NEGATIVE) /HPF Urine Mucus (Auto) SLIGHT (NEGATIVE) /HPF Urine Culture Reflexed YES (NO) Urine Glucose NEGATIVE (NEGATIVE) mg/dL Urine Opiates Level (NEGATIVE) Ur Methadone (NEGATIVE) Acetaminophen (10-30) ug/ml Urine Barbiturates (NEGATIVE) Ur Phencyclidine (PCP) (NEGATIVE) Urine Amphetamine (NEGATIVE) U Benzodiazepine Level (NEGATIVE) Urine Cocaine (NEGATIVE) Urine Marijuana (THC) (NEGATIVE) Ethyl Alcohol (0-10) mg/dL 04/14/21 04/14/21 04/14/21 Range/Units 05:15 05:15 04:59 WBC 8.3 (4.0-10.5) K/mm3 RBC 3.63 L (4.1-5.4) M/mm3 Hgb 10.5 L (12.0-16.0) gm/dl Hct 33.5 L (35-47) % MCV 92.3 (78-100) fl MCH 28.9 (26-32) pg MCHC 31.3 L (32-36) g/dl RDW 15.7 H (11.5-14.0) % Plt Count 232 (150-450) K/mm3 MPV 12.1 H (7.5-11.0) fl Gran % 75.7 H (36.0-66.0) % Eos # (Auto) 0.05 (0-0.5) Absolute Lymphs (auto) 1.27 (1.0-4.6) Absolute Monos (auto) 0.67 (0.0-1.3) Lymphocytes % 15.4 L (24.0-44.0) % Monocytes % 8.1 (0.0-12.0) % Eosinophils % 0.6 (0.00-5.0) % Basophils % 0.2 (0.0-0.4) % Absolute Granulocytes 6.25 (1.4-6.9) Basophils # 0.02 (0-0.4) Puncture Site RIGHT BRACHIAL pCO2 38 (35-45) mmHg pO2 70 L (75-100) mmHg Base Excess -0.3 (-2.0-2.0) O2 Saturation 92.4 L (94-100) g/dF ABG pH 7.41 (7.35-7.45) ABG HCO3 24.1 (22-28) ABG O2 Sat (Measured) 96.4 (95-100) % Rommel Test YES A-a Gradient 32 a/A Ratio 0.69 Hemoglobin 10.1 Carboxyhemoglobin 3.0 (0.0-6.9) % THgb Methemoglobin 1.1 L (1.4-1.5) % Potassium 4.1 4.2 (3.5-5.1) Temperature 37.0 C POC O2 Flow Rate 21 % Sodium 140 (137-145) mmol/L Chloride 106 (98-107) mmol/L Carbon Dioxide 20 L (22-30) mmol/L Anion Gap 18.1 H (5-15) MEQ/L BUN 27 H (7-17) mg/dL Creatinine 3.42 H (0.52-1.04) mg/dL Estimated GFR 14.6 ML/MIN Glucose 173 H (74-106) mg/dL Lactic Acid (0.4-2.0) Calcium 8.9 (8.4-10.2) mg/dL Magnesium 2.2 (1.6-2.3) mg/dL Total Bilirubin 0.50 (0.2-1.3) mg/dL AST 73 H (14-36) U/L ALT 66 H (0-35) U/L Alkaline Phosphatase 130 H (38-126) U/L Ammonia (9-30) umol/L Creatine Kinase (30-135) U/L Troponin I (0.000-0.034) ng/mL Serum Total Protein 7.7 (6.3-8.2) g/dL Albumin 4.5 (3.5-5.0) g/dL TSH 3rd Generation (0.47-4.68) mIU/L Urine Color (YELLOW) Urine Appearance (CLEAR) Urine pH (5-6) Ur Specific [place] (1.005-1.025) Urine Protein (Negative) Urine Ketones (NEGATIVE) Urine Blood (0-5) Irineo/ul Urine Nitrite (NEGATIVE) Urine Bilirubin (NEGATIVE) Urine Urobilinogen (0-1) mg/dL Ur Leukocyte Esterase (NEGATIVE) Urine WBC (Auto) (0-5) /HPF Urine RBC (Auto) (0-2) /HPF U Epithel Cells (Auto) (FEW) /HPF Urine Bacteria (Auto) (NEGATIVE) /HPF Urine Mucus (Auto) (NEGATIVE) /HPF Urine Culture Reflexed (NO) Urine Glucose (NEGATIVE) mg/dL Urine Opiates Level (NEGATIVE) Ur Methadone (NEGATIVE) Acetaminophen < 10 L (10-30) ug/ml Urine Barbiturates (NEGATIVE) Ur Phencyclidine (PCP) (NEGATIVE) Urine Amphetamine (NEGATIVE) U Benzodiazepine Level (NEGATIVE) Urine Cocaine (NEGATIVE) Urine Marijuana (THC) (NEGATIVE) Ethyl Alcohol < 10 (0-10) mg/dL 04/14/21 Range/Units 04:59 WBC (4.0-10.5) K/mm3 RBC (4.1-5.4) M/mm3 Hgb (12.0-16.0) gm/dl Hct (35-47) % MCV (78-100) fl MCH (26-32) pg MCHC (32-36) g/dl RDW (11.5-14.0) % Plt Count (150-450) K/mm3 MPV (7.5-11.0) fl Gran % (36.0-66.0) % Eos # (Auto) (0-0.5) Absolute Lymphs (auto) (1.0-4.6) Absolute Monos (auto) (0.0-1.3) Lymphocytes % (24.0-44.0) % Monocytes % (0.0-12.0) % Eosinophils % (0.00-5.0) % Basophils % (0.0-0.4) % Absolute Granulocytes (1.4-6.9) Basophils # (0-0.4) Puncture Site pCO2 (35-45) mmHg pO2 (75-100) mmHg Base Excess (-2.0-2.0) O2 Saturation (94-100) g/dF ABG pH (7.35-7.45) ABG HCO3 (22-28) ABG O2 Sat (Measured) (95-100) % Rommel Test A-a Gradient a/A Ratio Hemoglobin Carboxyhemoglobin (0.0-6.9) % THgb Methemoglobin (1.4-1.5) % Potassium (3.5-5.1) Temperature C POC O2 Flow Rate % Sodium (137-145) mmol/L Chloride (98-107) mmol/L Carbon Dioxide (22-30) mmol/L Anion Gap (5-15) MEQ/L BUN (7-17) mg/dL Creatinine (0.52-1.04) mg/dL Estimated GFR ML/MIN Glucose (74-106) mg/dL Lactic Acid 1.0 (0.4-2.0) Calcium (8.4-10.2) mg/dL Magnesium (1.6-2.3) mg/dL Total Bilirubin (0.2-1.3) mg/dL AST (14-36) U/L ALT (0-35) U/L Alkaline Phosphatase (38-126) U/L Ammonia (9-30) umol/L Creatine Kinase (30-135) U/L Troponin I (0.000-0.034) ng/mL Serum Total Protein (6.3-8.2) g/dL Albumin (3.5-5.0) g/dL TSH 3rd Generation (0.47-4.68) mIU/L Urine Color (YELLOW) Urine Appearance (CLEAR) Urine pH (5-6) Ur Specific [place] (1.005-1.025) Urine Protein (Negative) Urine Ketones (NEGATIVE) Urine Blood (0-5) [place]/ul Urine Nitrite (NEGATIVE) Urine Bilirubin (NEGATIVE) Urine Urobilinogen (0-1) mg/dL Ur Leukocyte Esterase (NEGATIVE) Urine WBC (Auto) (0-5) /HPF Urine RBC (Auto) (0-2) /HPF U Epithel Cells (Auto) (FEW) /HPF Urine Bacteria (Auto) (NEGATIVE) /HPF Urine Mucus (Auto) (NEGATIVE) /HPF Urine Culture Reflexed (NO) Urine Glucose (NEGATIVE) mg/dL Urine Opiates Level (NEGATIVE) Ur Methadone (NEGATIVE) Acetaminophen (10-30) ug/ml Urine Barbiturates (NEGATIVE) Ur Phencyclidine (PCP) (NEGATIVE) Urine Amphetamine (NEGATIVE) U Benzodiazepine Level (NEGATIVE) Urine Cocaine (NEGATIVE) Urine Marijuana (THC) (NEGATIVE) Ethyl Alcohol (0-10) mg/dL - Progress Progress: improved Progress Note: Case discussed with Dr. Sepulveda who accepts admission to ICU observation. Given the work-up it appears that patient overdosed on benzodiazepines. Patient has acute renal injury. CPK is normal. A urinary tract infection was observed. Patient received Rocephin. Patient mildly anemic. Upon arrival patient was mildly hypothermic as well. We will continue to observe in the ICU. Covid test pending. ICU admission orders entered with expectation that Covid will be negative. Patient endorsed to Dr. Ruvalcaba to address any issues that arise after 7am. 04/14/21 06:59 - Departure Departure Disposition: Observation Clinical Impression: UTI (urinary tract infection), AMS (altered mental status), Hypothermia, Acute renal injury, Anemia, benzodiazepine use Condition: Stable Critical Care Time: No Referrals: SHERIF DUKES [Primary Care Provider] -
[2021-04-14] MEDS ORDERED: DUONEB 0.5-3 MG/3 ml Neb IH ONE (05:31)
[2021-04-14 05:33] LABS: Absolute Neutrophil Ct (ANC) 6.25 (1.4-6.9); BASOPHIL % 0.2 % (0.0-0.4); Basophil (Absolute #) 0.02 (0-0.4); Eosinophil % 0.6 % (0.00-5.0); Eosinophil (Absolute #) 0.05 (0-0.5); Hematocrit 33.5 % (35-47); Hemoglobin 10.5 gm/dl (12.0-16.0); Lymphocyte (Absolute #) 1.27 (1.0-4.6); Lymphocytes % 15.4 % (24.0-44.0); Mean Cell Volume 92.3 fl (78-100); Mean Corpuscular Hemoglobin 28.9 pg (26-32); Mean Corpuscular Hgb Concent. 31.3 g/dl (32-36); Mean Platelet Volume 12.1 fl (7.5-11.0); Monocyte (Absolute #) 0.67 (0.0-1.3); Monocytes % 8.1 % (0.0-12.0); Neutrophil % 75.7 % (36.0-66.0); Platelet Count 232 K/mm3 (150-450); Red Blood Count 3.63 M/mm3 (4.1-5.4); Red Cell Distribution Width 15.7 % (11.5-14.0); White Blood Count 8.3 K/mm3 (4.0-10.5)
[2021-04-14 05:45] LABS: Appearance SLIGHTLY CLOUDY (CLEAR); Bacteria MANY /HPF (NEGATIVE); Bilirubin NEGATIVE (NEGATIVE); Blood NEGATIVE Ery/ul (0-5); Glucose NEGATIVE (NEGATIVE); Ketones NEGATIVE (NEGATIVE); Leukocyte Esterase LARGE (NEGATIVE); Mucus SLIGHT /HPF (NEGATIVE); Nitrite POSITIVE (NEGATIVE); Protein,Urine Dip NEGATIVE (Negative); RBC 0-2 /HPF (0-2); Specific Gravity 1.008 (1.005-1.025); Urobilinogen NEGATIVE mg/dL (0-1); WBC 26-50 /HPF (0-5)
[2021-04-14] MEDS ORDERED: ROCEPHIN 1 Gm-D5w 50 ml Bag** 1 G/50 ML IVPB IV STA (05:49)
[2021-04-14 05:52] LABS: ACETAMINOPHEN < 10 ug/ml (10-30); ALBUMIN 4.5 g/dL (3.5-5.0); ALKALINE PHOSPHATASE 130 U/L (38-126); ANION GAP 18.1 MEQ/L (5-15); BLOOD UREA NITROGEN 27 mg/dL (7-17); CHLORIDE 106 mmol/L (98-107); Calcium 8.9 mg/dL (8.4-10.2); Carbon Dioxide 20 mmol/L (22-30); Creatinine 1 3.42 mg/dL (0.52-1.04); EST GLOMERULAR FILTRATION RATE 14.6 ML/MIN; ETHYL ALCOHOL < 10 mg/dL (0-10); Glucose 173 mg/dL (74-106); MAGNESIUM 2.2 mg/dL (1.6-2.3); Potassium 4.1 mmol/L (3.5-5.1); SGOT/AST 73 U/L (14-36); SGPT/ALT 66 U/L (0-35); SODIUM 140 mmol/L (137-145); Total Protein 7.7 g/dL (6.3-8.2)
[2021-04-14] MEDS ORDERED: ROCEPHIN 1 Gm-D5w 50 ml Bag** 1 G/50 ML IVPB IV ONE (05:53)
[2021-04-14 06:11] LABS: Amphetamine,Urine NEGATIVE (NEGATIVE); Barbiturate,Urine NEGATIVE (NEGATIVE); Benzodiazepine,Urine POSITIVE (NEGATIVE); Cocaine,Urine NEGATIVE (NEGATIVE); Methadone,Urine NEGATIVE (NEGATIVE); Opiate,Urine NEGATIVE (NEGATIVE); PCP,Urine NEGATIVE (NEGATIVE); THC,Urine NEGATIVE (NEGATIVE)
[2021-04-14] MEDS ORDERED: Sodium Chloride 0.9% 1000 ML 1,000 ML IV STA ×2 (06:20→17:26)
[2021-04-14] MEDS ORDERED: Sodium Chloride 0.9% 1000 ML 1,000 ML ONE ×2 (06:22→12:11)
--- NOTE | 2021-04-14 09:00 | XRAY ---
Indication: Unresponsive. Comparison: May 14, 2020. Portable apical lordotic chest is now underinflated and remains clear. Heart not enlarged. Bony thorax intact. No new/acute findings.
--- NOTE | 2021-04-14 09:00 | XRAY ---
Indication: Found unresponsive. Stroke and bleed. Multiple contiguous axial images obtained through the head without contrast. Comparison: August 07, 2018. Age-appropriate global atrophy with minimal periventricular degenerative micro-ischemia. No acute intracranial hemorrhage, abnormal extra-axial fluid collection, or mass effect. Fourth ventricle is midline without hydrocephalus. Haile-white matter differentiation preserved. Bony calvarium intact. Visualized paranasal sinuses and mastoid air cells are clear. Impression: Nonacute senile brain. Comment: Preliminary interpretation made by [facility]. No critical discrepancy.
[2021-04-14] MEDS: Sodium Chloride 0.9% 1000 ML 1,000 ML IV SCH ×2 (12:15→21:38)
[2021-04-14] MEDS ORDERED: Romazicon 0.5 MG/5 ML Injection IV ONE ×2 (13:42→14:12)
[2021-04-14] MEDS ORDERED: Ativan 2 MG/1 ML VIAL IV PRN (17:38)
[2021-04-14 17:39] LABS: A-aADO2 82; ABG HEMOGLOBIN 10.2; ABG POTASSIUM 4.8 (3.5-5.1); ABG SITE LEFT RADIAL; ARTERIAL BLD GAS O2 SATURATION 98.1 % (95-100); ARTERIAL BLOOD GAS BASE EXCESS -2.8 (-2.0-2.0); ARTERIAL BLOOD GAS FIO2 28 %; ARTERIAL BLOOD GAS PCO2 32 mmHg (35-45); ARTERIAL BLOOD GAS PO2 78 mmHg (75-100); ARTERIAL BLOOD GAS pH 7.42 (7.35-7.45); CARBOXYHEMOGLOBIN 1.5 % THgb (0.0-6.9); HCO3- 20.8 (22-28); HGB O2 SAT 95.7 g/dF (94-100); Methhemoglobin 0.9 % (1.4-1.5)
--- NOTE | 2021-04-14 17:44 | PCM.HP ---
History of Present Illness - Chief Complaint Chief Complaint: Benzodiazepine overdose, altered mental status History of Present Illness: is a 60 year old female pt of mine from [facility] with chronic renal insufficiency, DM II, polyneuropathy, NANI, HTN, COPD, bipolar disorder, hypercalcemia, hyperproteinemia, migraine, an dchronic neck and back pain who was admitted through ER with altered mental status. She was found unresponsive at home by her boyfriend, who called EMS. One of the EMS workers was able to get her to transfer to the [facility] with 1 assist and some difficulty. In ER her CT head was negative. She was found to have UTI and also decreased renal function (eGFR of 14; usually >60 but occasionally lower with a low of 37). Her urine drug screen was positive only for BZD (pt has not been rx BZD in the past 2 years, per [facility]). Since she has gotten to the floor, she has been sleepy. She was evaluated by LIA Emerson who found her somnolent and not responsive to sternal rub. The nurse found her minimally responsive to sternal rub. She was given flumazenil and did open her eyes but started having some jerking movements so she was not given any more. She tried to speak to the nurse at one point. However she is not following any directions for me and not talking/answering questions. Family member told hospital staff that pt had a syncopal episode last week. - Review of Systems All Other Systems: Unable due to condition Medications & Allergies Home Medications: Home Medication List Fluticasone Propionate [Flonase NASAL] 1 spray NS DAILY 03/13/16 [History Confirmed 04/14/21] Metformin HCl [Glucophage] 1,000 mg PO BID 09/29/16 [History Confirmed 04/14/21] Potassium Chloride 10 Meq Tab* [Klor Con 10 MEQ] 20 meq PO BID 08/29/17 [History Confirmed 04/14/21] Atorvastatin Calcium 80 mg PO HS 11/07/18 [History Confirmed 04/14/21] Losartan Potassium 50 mg [Cozaar 50 MG] 50 mg PO BID 11/07/18 [History Confirmed 04/14/21] Metoprolol Succinate 50 mg [Toprol Xl 50 MG] 50 mg PO BID 11/07/18 [History Confirmed 04/14/21] Acetaminophen 500 mg [Tylenol Extra Strength 500 mg] 1,000 mg PO Q4HPRN PRN 04/14/21 [History Confirmed 04/14/21] Azelastine HCl 1 drop OP BID 04/14/21 [History Confirmed 04/14/21] Clopidogrel Bisulfate 75 mg [PLAVIX 75 MG Tablet] 75 mg PO DAILY 04/14/21 [History Confirmed 04/14/21] Gabapentin 300 mg [Neurontin 300 mg] 300 mg PO TID 04/14/21 [History Confirmed 04/14/21] Insulin Glargine,Hum.rec.anlog [Basaglar Kwikpen U-100] 20 units SQ HS 04/14/21 [History Confirmed 04/14/21] Nystatin 5 ml PO Q6H 04/14/21 [History Confirmed 04/14/21] Oxybutynin Chloride 5 mg PO BID 04/14/21 [History Confirmed 04/14/21] Saliva Stimulant Comb. No.3 [Biotene Moisturizing Mouth] 1 spray MM Q4-6HPRN PRN 04/14/21 [History Confirmed 04/14/21] Sodium Citrate Dihydrate 230 mg PO Q4-6HPRN PRN 04/14/21 [History Confirmed 04/14/21] Torsemide 50 mg PO BID 04/14/21 [History Confirmed 04/14/21] Allergies/Adverse Reactions: Allergies Allergy/AdvReac Type Severity Reaction Status Date / Time lisinopril Allergy Verified 04/07/20 18:35 - Past Medical History Past Medical History: Yes Neurological History: Migraines, Seizures, TIA ENT History: No Pertinent History Cardiac History: Arrhythmia, Hypertension, Other Respiratory History: COPD, Pneumonia, Sleep Apnea Endocrine Medical History: Diabetes Type II Musculoskelatal History: Osteoarthritis GI Medical History: No Pertinent History History: Renal Disease Pyscho-Social History: Anxiety, Depression Reproductive Disorders: No Pertinent History Comment: depression, anxiety, viri, cardiomyopathy - Female History Are you now?: No - Past Surgical History Past Surgical History: Yes Neuro Surgical History: No Pertinent History Cardiac History: No Pertinent History Respiratory Surgery: No Pertinent History GI Surgical History: Cholecystectomy Genitourinary Surgical Hx: No Pertinent History Musculskeletal Surgical Hx: No Pertinent History Female Surgical History: Section Other Surgical History: colonoscopy - Social History Smoking Status: Unknown if ever smoked How long have you smoked: 45 years Exposure to second hand smoke: Yes Alcohol: None Drug Use: marijuana Significant Family History: no pertinent family hx - Physical Exam Vital Signs: Vital Signs - 24 hr Temp Pulse Pulse Resp BP Pulse Ox 04/14/21 17:00 99.0 F 74 17 109/73 99 04/14/21 16:00 98.6 F 73 17 117/83 98 04/14/21 15:00 98.2 F 73 25 H 132/85 97 04/14/21 14:20 100 04/14/21 14:00 97.9 F 81 19 124/78 100 04/14/21 13:00 97.9 F 64 20 94/55 100 04/14/21 12:00 98.2 F 66 17 88/57 100 04/14/21 11:00 98.2 F 72 17 131/71 100 04/14/21 09:54 98.8 F 71 18 131/75 99 04/14/21 08:00 97.7 F 74 18 120/79 99 04/14/21 07:00 97.7 F 73 16 145/78 99 04/14/21 06:00 97.7 F 76 20 138/79 98 04/14/21 05:11 78 04/14/21 05:00 75 17 98 04/14/21 04:48 99 04/14/21 04:42 96.9 F 78 18 136/86 99 General Appearance: other (lying in bed with eyes open. Mouth is open as if in a yawn. Her R hand has a slight intermittent tremor.) Eye Exam: other (L eye with mild yellow exudate) Respiratory Exam: normal breath sounds, lungs clear, No crackles/rales, No rhonchi, No wheezing Cardiovascular Exam: regular rate/rhythm, normal heart sounds, No murmur Gastrointestinal/Abdomen Exam: soft, No distention, No mass Extremity Exam: swelling (trace pretibial edema R>L) Skin Exam: normal color, warm, dry, No rash Results - Labs Lab/Micro Results: Lab Results-Last 24 Hours 04/14/21 04/14/21 04/14/21 Range/Units 04:59 04:59 05:15 WBC 8.3 (4.0-10.5) K/mm3 RBC 3.63 L (4.1-5.4) M/mm3 Hgb 10.5 L (12.0-16.0) gm/dl Hct 33.5 L (35-47) % MCV 92.3 (78-100) fl MCH 28.9 (26-32) pg MCHC 31.3 L (32-36) g/dl RDW 15.7 H (11.5-14.0) % Plt Count 232 (150-450) K/mm3 MPV 12.1 H (7.5-11.0) fl Gran % 75.7 H (36.0-66.0) % Eos # (Auto) 0.05 (0-0.5) Absolute Lymphs (auto) 1.27 (1.0-4.6) Absolute Monos (auto) 0.67 (0.0-1.3) Lymphocytes % 15.4 L (24.0-44.0) % Monocytes % 8.1 (0.0-12.0) % Eosinophils % 0.6 (0.00-5.0) % Basophils % 0.2 (0.0-0.4) % Absolute Granulocytes 6.25 (1.4-6.9) Basophils # 0.02 (0-0.4) Puncture Site RIGHT BRACHIAL pCO2 38 (35-45) mmHg pO2 70 L (75-100) mmHg Base Excess -0.3 (-2.0-2.0) O2 Saturation 92.4 L (94-100) g/dF ABG pH 7.41 (7.35-7.45) ABG HCO3 24.1 (22-28) ABG O2 Sat (Measured) 96.4 (95-100) % Rommel Test YES A-a Gradient 32 a/A Ratio 0.69 Hemoglobin 10.1 Carboxyhemoglobin 3.0 (0.0-6.9) % THgb Methemoglobin 1.1 L (1.4-1.5) % Potassium 4.2 (3.5-5.1) Temperature 37.0 C POC O2 Flow Rate 21 % Sodium (137-145) mmol/L Chloride (98-107) mmol/L Carbon Dioxide (22-30) mmol/L Anion Gap (5-15) MEQ/L BUN (7-17) mg/dL Creatinine (0.52-1.04) mg/dL Estimated GFR ML/MIN Glucose (74-106) mg/dL Lactic Acid 1.0 (0.4-2.0) Calcium (8.4-10.2) mg/dL Magnesium (1.6-2.3) mg/dL Total Bilirubin (0.2-1.3) mg/dL AST (14-36) U/L ALT (0-35) U/L Alkaline Phosphatase (38-126) U/L Ammonia (9-30) umol/L Creatine Kinase (30-135) U/L Troponin I (0.000-0.034) ng/mL Serum Total Protein (6.3-8.2) g/dL Albumin (3.5-5.0) g/dL TSH 3rd Generation (0.47-4.68) mIU/L Urine Color (YELLOW) Urine Appearance (CLEAR) Urine pH (5-6) Ur Specific [place] (1.005-1.025) Urine Protein (Negative) Urine Ketones (NEGATIVE) Urine Blood (0-5) Irineo/ul Urine Nitrite (NEGATIVE) Urine Bilirubin (NEGATIVE) Urine Urobilinogen (0-1) mg/dL Ur Leukocyte Esterase (NEGATIVE) Urine WBC (Auto) (0-5) /HPF Urine RBC (Auto) (0-2) /HPF U Epithel Cells (Auto) (FEW) /HPF Urine Bacteria (Auto) (NEGATIVE) /HPF Urine Mucus (Auto) (NEGATIVE) /HPF Urine Culture Reflexed (NO) Urine Glucose (NEGATIVE) mg/dL Salicylates (2-20) mg/dL Urine Opiates Level (NEGATIVE) Ur Methadone (NEGATIVE) Acetaminophen (10-30) ug/ml Urine Barbiturates (NEGATIVE) Ur Phencyclidine (PCP) (NEGATIVE) Urine Amphetamine (NEGATIVE) U Benzodiazepine Level (NEGATIVE) Urine Cocaine (NEGATIVE) Urine Marijuana (THC) (NEGATIVE) Ethyl Alcohol (0-10) mg/dL SARS-CoV-2 (PCR) (NEGATIVE) 04/14/21 04/14/21 04/14/21 Range/Units 05:15 05:15 05:15 WBC (4.0-10.5) K/mm3 RBC (4.1-5.4) M/mm3 Hgb (12.0-16.0) gm/dl Hct (35-47) % MCV (78-100) fl MCH (26-32) pg MCHC (32-36) g/dl RDW (11.5-14.0) % Plt Count (150-450) K/mm3 MPV (7.5-11.0) fl Gran % (36.0-66.0) % Eos # (Auto) (0-0.5) Absolute Lymphs (auto) (1.0-4.6) Absolute Monos (auto) (0.0-1.3) Lymphocytes % (24.0-44.0) % Monocytes % (0.0-12.0) % Eosinophils % (0.00-5.0) % Basophils % (0.0-0.4) % Absolute Granulocytes (1.4-6.9) Basophils # (0-0.4) Puncture Site pCO2 (35-45) mmHg pO2 (75-100) mmHg Base Excess (-2.0-2.0) O2 Saturation (94-100) g/dF ABG pH (7.35-7.45) ABG HCO3 (22-28) ABG O2 Sat (Measured) (95-100) % Rommel Test A-a Gradient a/A Ratio Hemoglobin Carboxyhemoglobin (0.0-6.9) % THgb Methemoglobin (1.4-1.5) % Potassium 4.1 (3.5-5.1) Temperature C POC O2 Flow Rate % Sodium 140 (137-145) mmol/L Chloride 106 (98-107) mmol/L Carbon Dioxide 20 L (22-30) mmol/L Anion Gap 18.1 H (5-15) MEQ/L BUN 27 H (7-17) mg/dL Creatinine 3.42 H (0.52-1.04) mg/dL Estimated GFR 14.6 ML/MIN Glucose 173 H (74-106) mg/dL Lactic Acid (0.4-2.0) Calcium 8.9 (8.4-10.2) mg/dL Magnesium 2.2 (1.6-2.3) mg/dL Total Bilirubin 0.50 (0.2-1.3) mg/dL AST 73 H (14-36) U/L ALT 66 H (0-35) U/L Alkaline Phosphatase 130 H (38-126) U/L Ammonia (9-30) umol/L Creatine Kinase (30-135) U/L Troponin I < 0.012 (0.000-0.034) ng/mL Serum Total Protein 7.7 (6.3-8.2) g/dL Albumin 4.5 (3.5-5.0) g/dL TSH 3rd Generation 2.360 (0.47-4.68) mIU/L Urine Color (YELLOW) Urine Appearance (CLEAR) Urine pH (5-6) Ur Specific [place] (1.005-1.025) Urine Protein (Negative) Urine Ketones (NEGATIVE) Urine Blood (0-5) Irineo/ul Urine Nitrite (NEGATIVE) Urine Bilirubin (NEGATIVE) Urine Urobilinogen (0-1) mg/dL Ur Leukocyte Esterase (NEGATIVE) Urine WBC (Auto) (0-5) /HPF Urine RBC (Auto) (0-2) /HPF U Epithel Cells (Auto) (FEW) /HPF Urine Bacteria (Auto) (NEGATIVE) /HPF Urine Mucus (Auto) (NEGATIVE) /HPF Urine Culture Reflexed (NO) Urine Glucose (NEGATIVE) mg/dL Salicylates (2-20) mg/dL Urine Opiates Level (NEGATIVE) Ur Methadone (NEGATIVE) Acetaminophen < 10 L (10-30) ug/ml Urine Barbiturates (NEGATIVE) Ur Phencyclidine (PCP) (NEGATIVE) Urine Amphetamine (NEGATIVE) U Benzodiazepine Level (NEGATIVE) Urine Cocaine (NEGATIVE) Urine Marijuana (THC) (NEGATIVE) Ethyl Alcohol < 10 (0-10) mg/dL SARS-CoV-2 (PCR) (NEGATIVE) 04/14/21 04/14/21 04/14/21 Range/Units 05:24 05:36 06:30 WBC (4.0-10.5) K/mm3 RBC (4.1-5.4) M/mm3 Hgb (12.0-16.0) gm/dl Hct (35-47) % MCV (78-100) fl MCH (26-32) pg MCHC (32-36) g/dl RDW (11.5-14.0) % Plt Count (150-450) K/mm3 MPV (7.5-11.0) fl Gran % (36.0-66.0) % Eos # (Auto) (0-0.5) Absolute Lymphs (auto) (1.0-4.6) Absolute Monos (auto) (0.0-1.3) Lymphocytes % (24.0-44.0) % Monocytes % (0.0-12.0) % Eosinophils % (0.00-5.0) % Basophils % (0.0-0.4) % Absolute Granulocytes (1.4-6.9) Basophils # (0-0.4) Puncture Site pCO2 (35-45) mmHg pO2 (75-100) mmHg Base Excess (-2.0-2.0) O2 Saturation (94-100) g/dF ABG pH (7.35-7.45) ABG HCO3 (22-28) ABG O2 Sat (Measured) (95-100) % Rommel Test A-a Gradient a/A Ratio Hemoglobin Carboxyhemoglobin (0.0-6.9) % THgb Methemoglobin (1.4-1.5) % Potassium (3.5-5.1) Temperature C POC O2 Flow Rate % Sodium (137-145) mmol/L Chloride (98-107) mmol/L Carbon Dioxide (22-30) mmol/L Anion Gap (5-15) MEQ/L BUN (7-17) mg/dL Creatinine (0.52-1.04) mg/dL Estimated GFR ML/MIN Glucose (74-106) mg/dL Lactic Acid (0.4-2.0) Calcium (8.4-10.2) mg/dL Magnesium (1.6-2.3) mg/dL Total Bilirubin (0.2-1.3) mg/dL AST (14-36) U/L ALT (0-35) U/L Alkaline Phosphatase (38-126) U/L Ammonia < 9 L (9-30) umol/L Creatine Kinase (30-135) U/L Troponin I (0.000-0.034) ng/mL Serum Total Protein (6.3-8.2) g/dL Albumin (3.5-5.0) g/dL TSH 3rd Generation (0.47-4.68) mIU/L Urine Color YELLOW (YELLOW) Urine Appearance SLIGHTLY CLOUDY (CLEAR) Urine pH 5.0 (5-6) Ur Specific [place] 1.008 (1.005-1.025) Urine Protein NEGATIVE (Negative) Urine Ketones NEGATIVE (NEGATIVE) Urine Blood NEGATIVE (0-5) Irineo/ul Urine Nitrite POSITIVE (NEGATIVE) Urine Bilirubin NEGATIVE (NEGATIVE) Urine Urobilinogen NEGATIVE (0-1) mg/dL Ur Leukocyte Esterase LARGE (NEGATIVE) Urine WBC (Auto) 26-50 (0-5) /HPF Urine RBC (Auto) 0-2 (0-2) /HPF U Epithel Cells (Auto) NONE (FEW) /HPF Urine Bacteria (Auto) MANY (NEGATIVE) /HPF Urine Mucus (Auto) SLIGHT (NEGATIVE) /HPF Urine Culture Reflexed YES (NO) Urine Glucose NEGATIVE (NEGATIVE) mg/dL Salicylates (2-20) mg/dL Urine Opiates Level NEGATIVE (NEGATIVE) Ur Methadone NEGATIVE (NEGATIVE) Acetaminophen (10-30) ug/ml Urine Barbiturates NEGATIVE (NEGATIVE) Ur Phencyclidine (PCP) NEGATIVE (NEGATIVE) Urine Amphetamine NEGATIVE (NEGATIVE) U Benzodiazepine Level POSITIVE (NEGATIVE) Urine Cocaine NEGATIVE (NEGATIVE) Urine Marijuana (THC) NEGATIVE (NEGATIVE) Ethyl Alcohol (0-10) mg/dL SARS-CoV-2 (PCR) (NEGATIVE) 04/14/21 04/14/21 04/14/21 Range/Units 06:30 06:32 07:21 WBC (4.0-10.5) K/mm3 RBC (4.1-5.4) M/mm3 Hgb (12.0-16.0) gm/dl Hct (35-47) % MCV (78-100) fl MCH (26-32) pg MCHC (32-36) g/dl RDW (11.5-14.0) % Plt Count (150-450) K/mm3 MPV (7.5-11.0) fl Gran % (36.0-66.0) % Eos # (Auto) (0-0.5) Absolute Lymphs (auto) (1.0-4.6) Absolute Monos (auto) (0.0-1.3) Lymphocytes % (24.0-44.0) % Monocytes % (0.0-12.0) % Eosinophils % (0.00-5.0) % Basophils % (0.0-0.4) % Absolute Granulocytes (1.4-6.9) Basophils # (0-0.4) Puncture Site pCO2 (35-45) mmHg pO2 (75-100) mmHg Base Excess (-2.0-2.0) O2 Saturation (94-100) g/dF ABG pH (7.35-7.45) ABG HCO3 (22-28) ABG O2 Sat (Measured) (95-100) % Rommel Test A-a Gradient a/A Ratio Hemoglobin Carboxyhemoglobin (0.0-6.9) % THgb Methemoglobin (1.4-1.5) % Potassium (3.5-5.1) Temperature C POC O2 Flow Rate % Sodium (137-145) mmol/L Chloride (98-107) mmol/L Carbon Dioxide (22-30) mmol/L Anion Gap (5-15) MEQ/L BUN (7-17) mg/dL Creatinine (0.52-1.04) mg/dL Estimated GFR ML/MIN Glucose (74-106) mg/dL Lactic Acid (0.4-2.0) Calcium (8.4-10.2) mg/dL Magnesium (1.6-2.3) mg/dL Total Bilirubin (0.2-1.3) mg/dL AST (14-36) U/L ALT (0-35) U/L Alkaline Phosphatase (38-126) U/L Ammonia (9-30) umol/L Creatine Kinase 139 H (30-135) U/L Troponin I (0.000-0.034) ng/mL Serum Total Protein (6.3-8.2) g/dL Albumin (3.5-5.0) g/dL TSH 3rd Generation (0.47-4.68) mIU/L Urine Color (YELLOW) Urine Appearance (CLEAR) Urine pH (5-6) Ur Specific [place] (1.005-1.025) Urine Protein (Negative) Urine Ketones (NEGATIVE) Urine Blood (0-5) Irineo/ul Urine Nitrite (NEGATIVE) Urine Bilirubin (NEGATIVE) Urine Urobilinogen (0-1) mg/dL Ur Leukocyte Esterase (NEGATIVE) Urine WBC (Auto) (0-5) /HPF Urine RBC (Auto) (0-2) /HPF U Epithel Cells (Auto) (FEW) /HPF Urine Bacteria (Auto) (NEGATIVE) /HPF Urine Mucus (Auto) (NEGATIVE) /HPF Urine Culture Reflexed (NO) Urine Glucose (NEGATIVE) mg/dL Salicylates < 1.0 L (2-20) mg/dL Urine Opiates Level (NEGATIVE) Ur Methadone (NEGATIVE) Acetaminophen (10-30) ug/ml Urine Barbiturates (NEGATIVE) Ur Phencyclidine (PCP) (NEGATIVE) Urine Amphetamine (NEGATIVE) U Benzodiazepine Level (NEGATIVE) Urine Cocaine (NEGATIVE) Urine Marijuana (THC) (NEGATIVE) Ethyl Alcohol (0-10) mg/dL SARS-CoV-2 (PCR) NEGATIVE (NEGATIVE) 04/14/21 04/14/21 04/14/21 Range/Units 07:30 11:00 14:25 WBC (4.0-10.5) K/mm3 RBC (4.1-5.4) M/mm3 Hgb (12.0-16.0) gm/dl Hct (35-47) % MCV (78-100) fl MCH (26-32) pg MCHC (32-36) g/dl RDW (11.5-14.0) % Plt Count (150-450) K/mm3 MPV (7.5-11.0) fl Gran % (36.0-66.0) % Eos # (Auto) (0-0.5) Absolute Lymphs (auto) (1.0-4.6) Absolute Monos (auto) (0.0-1.3) Lymphocytes % (24.0-44.0) % Monocytes % (0.0-12.0) % Eosinophils % (0.00-5.0) % Basophils % (0.0-0.4) % Absolute Granulocytes (1.4-6.9) Basophils # (0-0.4) Puncture Site pCO2 (35-45) mmHg pO2 (75-100) mmHg Base Excess (-2.0-2.0) O2 Saturation (94-100) g/dF ABG pH (7.35-7.45) ABG HCO3 (22-28) ABG O2 Sat (Measured) (95-100) % Rommel Test A-a Gradient a/A Ratio Hemoglobin Carboxyhemoglobin (0.0-6.9) % THgb Methemoglobin (1.4-1.5) % Potassium (3.5-5.1) Temperature C POC O2 Flow Rate % Sodium (137-145) mmol/L Chloride (98-107) mmol/L Carbon Dioxide (22-30) mmol/L Anion Gap (5-15) MEQ/L BUN (7-17) mg/dL Creatinine (0.52-1.04) mg/dL Estimated GFR ML/MIN Glucose (74-106) mg/dL Lactic Acid (0.4-2.0) Calcium (8.4-10.2) mg/dL Magnesium (1.6-2.3) mg/dL Total Bilirubin (0.2-1.3) mg/dL AST (14-36) U/L ALT (0-35) U/L Alkaline Phosphatase (38-126) U/L Ammonia (9-30) umol/L Creatine Kinase (30-135) U/L Troponin I < 0.012 < 0.012 < 0.012 (0.000-0.034) ng/mL Serum Total Protein (6.3-8.2) g/dL Albumin (3.5-5.0) g/dL TSH 3rd Generation (0.47-4.68) mIU/L Urine Color (YELLOW) Urine Appearance (CLEAR) Urine pH (5-6) Ur Specific [place] (1.005-1.025) Urine Protein (Negative) Urine Ketones (NEGATIVE) Urine Blood (0-5) Irineo/ul Urine Nitrite (NEGATIVE) Urine Bilirubin (NEGATIVE) Urine Urobilinogen (0-1) mg/dL Ur Leukocyte Esterase (NEGATIVE) Urine WBC (Auto) (0-5) /HPF Urine RBC (Auto) (0-2) /HPF U Epithel Cells (Auto) (FEW) /HPF Urine Bacteria (Auto) (NEGATIVE) /HPF Urine Mucus (Auto) (NEGATIVE) /HPF Urine Culture Reflexed (NO) Urine Glucose (NEGATIVE) mg/dL Salicylates (2-20) mg/dL Urine Opiates Level (NEGATIVE) Ur Methadone (NEGATIVE) Acetaminophen (10-30) ug/ml Urine Barbiturates (NEGATIVE) Ur Phencyclidine (PCP) (NEGATIVE) Urine Amphetamine (NEGATIVE) U Benzodiazepine Level (NEGATIVE) Urine Cocaine (NEGATIVE) Urine Marijuana (THC) (NEGATIVE) Ethyl Alcohol (0-10) mg/dL SARS-CoV-2 (PCR) (NEGATIVE) - Radiology Impressions Radiology Exams & Impressions: Radiology Procedures Category Date Time Status CAROTID BILATERAL [US] Urgent Exams 04/14/21 17:35 Taken CHEST 1 VIEW (PORTABLE) Stat Exams 04/14/21 04:50 Completed ECHO W/2D AND DOPPLER [US] Routine Exams 04/14/21 17:35 Taken HEAD WITHOUT CONTRAST [CT] Stat Exams 04/14/21 04:51 Completed MRI BRAIN W & W/O CONTRAST [MRI] Routine Exams 04/15/21 Ordered - Other Procedures and Tests Respiratory Therapy 04/14/21 14:20 Oxygen Nasal Cannula 2 lpm Assessment/Plan (1) AMS (altered mental status) Current Visit: Yes Status: Acute Qualifiers: Altered mental status type: stupor Qualified Code(s): R40.1 - Stupor Assessment & Plan: Unsure the etiology. MRI brain to be done if pt can lie still. CT head was neg. Ammonia level nl. Could be related to BZD overdose - but could be another substance (as per pt's history of methamphetamine and marijuana use). Reversal agent given for BZD, so I am alert to the possibility of seizure activity (prn BZD order given for that). Seizure precautions taken. Rechecked ABG as the one done this morning had PaO2 of 70. On recheck it is in normal range, and pH is 7.42. Pt is on 2L NC. Code(s): R41.82 - ALTERED MENTAL STATUS, UNSPECIFIED (2) Acute renal injury Current Visit: Yes Status: Acute Assessment & Plan: IV fluids given - another bolus ordered. Will watch for pulmonary edema s/sx. Code(s): N17.9 - ACUTE KIDNEY FAILURE, UNSPECIFIED (3) UTI (urinary tract infection) Current Visit: Yes Status: Acute Qualifiers: Urinary tract infection type: acute cystitis Hematuria presence: without hematuria Qualified Code(s): N30.00 - Acute cystitis without hematuria Assessment & Plan: on rocephin 1g IV daily, day #1. Code(s): N39.0 - URINARY TRACT INFECTION, SITE NOT SPECIFIED (4) Syncope Current Visit: Yes Status: Acute Qualifiers: Syncope type: unspecified Qualified Code(s): R55 - Syncope and collapse Assessment & Plan: Reported by family within the past couple of weeks. Echocardiogram and carotid doppler pending. Code(s): R55 - SYNCOPE AND COLLAPSE (5) COPD (chronic obstructive pulmonary disease) Current Visit: No Status: Chronic Qualifiers: COPD type: chronic bronchitis Chronic bronchitis type: unspecified Qualified Code(s): J42 - Unspecified chronic bronchitis (6) Diabetes Current Visit: No Status: Chronic Qualifiers: Diabetes mellitus type: type 2 Diabetes mellitus complication status: with hyperglycemia Code(s): E11.9 - TYPE 2 DIABETES MELLITUS WITHOUT COMPLICATIONS (7) Hypertension Current Visit: No Status: Chronic Qualifiers: Hypertension type: essential hypertension Qualified Code(s): I10 - Essential (primary) hypertension Code(s): I10 - ESSENTIAL (PRIMARY) HYPERTENSION
--- NOTE | 2021-04-14 19:11 | XRAY ---
Indication: Acute mental status change. Overdose. Unresponsive. Two-dimensional sonogram and color Doppler imaging of the carotid arteries of the neck performed. Comparison: August 10, 2018. Examination of the left carotid circulation now demonstrates minimal scattered arteriosclerotic plaquing in the common carotid artery. Worsening mild calcified plaquing at the level of bulb again extending to the origin of the internal and external carotid arteries. PSV of the CCA is 92 cm/s. PSV of the ICA is 70 cm/s. ICA/CCA ratio is 0.8. Normal antegrade vertebral artery flow. Examination of the right carotid circulation demonstrates widely patent common carotid artery. At the level of all there remains minimal eccentric heterogeneous plaquing again slightly extending to the origin of the internal carotid artery. PSV of the CCA is 129 cm/s. PSV of the ICA is 86 cm/s. ICA/CCA ratio is 0.7. Normal antegrade vertebral artery flow. Impression: Interval worsening left carotid with stable minimal right carotid arteriosclerotic plaquing as detailed. Velocity measurements and ratios remain negative for hemodynamically significant flow limiting stenosis.
[2021-04-15 05:07] LABS: BASOPHIL % 0.2 % (0.0-0.4); Basophil (Absolute #) 0.02 (0-0.4); Eosinophil % 0.2 % (0.00-5.0); Eosinophil (Absolute #) 0.02 (0-0.5); Hematocrit 30.6 % (35-47); Hemoglobin 9.4 gm/dl (12.0-16.0); Lymphocyte (Absolute #) 2.44 (1.0-4.6); Lymphocytes % 22.2 % (24.0-44.0); Mean Cell Volume 92.4 fl (78-100); Mean Corpuscular Hemoglobin 28.4 pg (26-32); Mean Corpuscular Hgb Concent. 30.7 g/dl (32-36); Mean Platelet Volume 11.8 fl (7.5-11.0); Monocyte (Absolute #) 1.11 (0.0-1.3); Monocytes % 10.1 % (0.0-12.0); Neutrophil % 67.3 % (36.0-66.0); Platelet Count 231 K/mm3 (150-450); Red Blood Count 3.31 M/mm3 (4.1-5.4); Red Cell Distribution Width 15.7 % (11.5-14.0)
[2021-04-15 05:30] LABS: ALBUMIN 3.7 g/dL (3.5-5.0); ANION GAP 14.5 MEQ/L (5-15); BILIRUBIN,TOTAL 0.3 mg/dL (0.2-1.3); Calcium 7.8 mg/dL (8.4-10.2); Creatinine 1 1.33 mg/dL (0.52-1.04); EST GLOMERULAR FILTRATION RATE 43.6 ML/MIN; Potassium 3.8 mmol/L (3.5-5.1); Total Protein 6.6 g/dL (6.3-8.2)
[2021-04-15] MEDS ORDERED: Ativan 2 MG/1 ML VIAL IV PRN (07:00)
[2021-04-15] MEDS: Sodium Chloride 0.9% 1000 ML 1,000 ML IV SCH ×2 (07:47→19:04)
--- NOTE | 2021-04-15 08:28 | PCM.NOTE ---
Date and Time: 04/15/21821 Subjective Assessment: Pt woke up around 10-11 pm last night. Has not slept and has been restless since then. Did manage to climb out of a leoncio-chair. RN took wu out around the time of my exam and pt has already urinated. Pt says the month and year are "[birth year]21." She is oriented to place. - Review of Systems Constitutional: No Fever Abdominal/Gastrointestinal: Nausea, No Vomiting Objective Exam General Appearance: no apparent distress, alert Neurologic Exam: cooperative, disoriented Skin Exam: normal color, warm, dry, No rash Respiratory Exam: normal breath sounds, lungs clear, No crackles/rales, No rhonchi, No wheezing Cardiovascular Exam: regular rate/rhythm, normal heart sounds, No murmur Gastrointestinal/Abdomen Exam: soft, normal bowel sounds, No tenderness, No distention, No mass, No guarding, No rebound Extremity Exam: normal inspection, No pedal edema, No swelling Back Exam: normal inspection, No rash OBJECTIVE DATA Vital Signs: Vital Signs - 24 hr Temp Pulse Resp BP Pulse Ox 04/15/21 07:49 91 H 04/15/21 07:00 99.3 F 92 H 17 151/67 96 04/15/21 06:37 100 04/15/21 05:56 88 16 96 04/15/21 05:00 98.6 F 88 16 146/65 96 04/15/21 04:00 98.6 F 99 H 18 96 04/15/21 02:54 98.1 F 87 18 144/86 98 04/15/21 02:00 101 H 18 96 04/15/21 01:00 104 H 15 144/86 96 04/15/21 00:00 99.3 F 94 H 21 138/80 99 04/14/21 23:00 93 H 16 139/69 96 04/14/21 21:59 84 24 138/71 97 04/14/21 21:00 99.1 F 90 18 141/85 99 04/14/21 20:00 99.0 F 82 18 123/96 100 04/14/21 19:00 99.0 F 82 20 153/64 98 04/14/21 18:20 99 04/14/21 18:00 98.8 F 76 21 121/84 99 04/14/21 17:00 99.0 F 74 17 109/73 99 04/14/21 16:00 98.6 F 73 17 117/83 98 04/14/21 15:00 98.2 F 73 25 H 132/85 97 04/14/21 14:20 100 04/14/21 14:00 97.9 F 81 19 124/78 100 04/14/21 13:00 97.9 F 64 20 94/55 100 04/14/21 12:00 98.2 F 66 17 88/57 100 04/14/21 11:00 98.2 F 72 17 131/71 100 04/14/21 09:54 98.8 F 71 18 131/75 99 Pain Assessment - Last Documented Pain Intensity 0 Intake and Output: Intake & Output 04/12/21 04/13/21 04/14/21 04/15/21 11:59 11:59 11:59 11:59 Intake Total 1300 Output Total 3150 Balance -1850 Weight 84.3 kg Lab Results: Lab Results-Last 24 Hours 04/14/21 04/14/21 04/14/21 Range/Units 06:32 07:21 11:00 WBC (4.0-10.5) K/mm3 RBC (4.1-5.4) M/mm3 Hgb (12.0-16.0) gm/dl Hct (35-47) % MCV (78-100) fl MCH (26-32) pg MCHC (32-36) g/dl RDW (11.5-14.0) % Plt Count (150-450) K/mm3 MPV (7.5-11.0) fl Gran % (36.0-66.0) % Eos # (Auto) (0-0.5) Absolute Lymphs (auto) (1.0-4.6) Absolute Monos (auto) (0.0-1.3) Lymphocytes % (24.0-44.0) % Monocytes % (0.0-12.0) % Eosinophils % (0.00-5.0) % Basophils % (0.0-0.4) % Absolute Granulocytes (1.4-6.9) Basophils # (0-0.4) Puncture Site pCO2 (35-45) mmHg pO2 (75-100) mmHg Base Excess (-2.0-2.0) O2 Saturation (94-100) g/dF ABG pH (7.35-7.45) ABG HCO3 (22-28) ABG O2 Sat (Measured) (95-100) % Rommel Test A-a Gradient a/A Ratio Hemoglobin Carboxyhemoglobin (0.0-6.9) % THgb Methemoglobin (1.4-1.5) % Potassium (3.5-5.1) Temperature C POC O2 Flow Rate % Sodium (137-145) mmol/L Chloride (98-107) mmol/L Carbon Dioxide (22-30) mmol/L Anion Gap (5-15) MEQ/L BUN (7-17) mg/dL Creatinine (0.52-1.04) mg/dL Estimated GFR ML/MIN Glucose (74-106) mg/dL POC Glucometer (74 to 106) mg/dL Calcium (8.4-10.2) mg/dL Total Bilirubin (0.2-1.3) mg/dL AST (14-36) U/L ALT (0-35) U/L Alkaline Phosphatase (38-126) U/L Troponin I < 0.012 (0.000-0.034) ng/mL Serum Total Protein (6.3-8.2) g/dL Albumin (3.5-5.0) g/dL Salicylates < 1.0 L (2-20) mg/dL SARS-CoV-2 (PCR) NEGATIVE (NEGATIVE) 04/14/21 04/14/21 04/14/21 Range/Units 14:25 17:35 17:56 WBC (4.0-10.5) K/mm3 RBC (4.1-5.4) M/mm3 Hgb (12.0-16.0) gm/dl Hct (35-47) % MCV (78-100) fl MCH (26-32) pg MCHC (32-36) g/dl RDW (11.5-14.0) % Plt Count (150-450) K/mm3 MPV (7.5-11.0) fl Gran % (36.0-66.0) % Eos # (Auto) (0-0.5) Absolute Lymphs (auto) (1.0-4.6) Absolute Monos (auto) (0.0-1.3) Lymphocytes % (24.0-44.0) % Monocytes % (0.0-12.0) % Eosinophils % (0.00-5.0) % Basophils % (0.0-0.4) % Absolute Granulocytes (1.4-6.9) Basophils # (0-0.4) Puncture Site LEFT RADIAL pCO2 32 L (35-45) mmHg pO2 78 (75-100) mmHg Base Excess -2.8 L (-2.0-2.0) O2 Saturation 95.7 (94-100) g/dF ABG pH 7.42 (7.35-7.45) ABG HCO3 20.8 L (22-28) ABG O2 Sat (Measured) 98.1 (95-100) % Rommel Test NOT APPLICABLE A-a Gradient 82 a/A Ratio 0.49 Hemoglobin 10.2 Carboxyhemoglobin 1.5 (0.0-6.9) % THgb Methemoglobin 0.9 L (1.4-1.5) % Potassium 4.8 (3.5-5.1) Temperature 37.0 C POC O2 Flow Rate 28 % Sodium (137-145) mmol/L Chloride (98-107) mmol/L Carbon Dioxide (22-30) mmol/L Anion Gap (5-15) MEQ/L BUN (7-17) mg/dL Creatinine (0.52-1.04) mg/dL Estimated GFR ML/MIN Glucose (74-106) mg/dL POC Glucometer 182 H (74 to 106) mg/dL Calcium (8.4-10.2) mg/dL Total Bilirubin (0.2-1.3) mg/dL AST (14-36) U/L ALT (0-35) U/L Alkaline Phosphatase (38-126) U/L Troponin I < 0.012 (0.000-0.034) ng/mL Serum Total Protein (6.3-8.2) g/dL Albumin (3.5-5.0) g/dL Salicylates (2-20) mg/dL SARS-CoV-2 (PCR) (NEGATIVE) 04/14/21 04/14/21 04/15/21 Range/Units 17:58 23:55 04:38 WBC 11.0 H (4.0-10.5) K/mm3 RBC 3.31 L (4.1-5.4) M/mm3 Hgb 9.4 L (12.0-16.0) gm/dl Hct 30.6 L (35-47) % MCV 92.4 (78-100) fl MCH 28.4 (26-32) pg MCHC 30.7 L (32-36) g/dl RDW 15.7 H (11.5-14.0) % Plt Count 231 (150-450) K/mm3 MPV 11.8 H (7.5-11.0) fl Gran % 67.3 H (36.0-66.0) % Eos # (Auto) 0.02 (0-0.5) Absolute Lymphs (auto) 2.44 (1.0-4.6) Absolute Monos (auto) 1.11 (0.0-1.3) Lymphocytes % 22.2 L (24.0-44.0) % Monocytes % 10.1 (0.0-12.0) % Eosinophils % 0.2 (0.00-5.0) % Basophils % 0.2 (0.0-0.4) % Absolute Granulocytes 7.40 H (1.4-6.9) Basophils # 0.02 (0-0.4) Puncture Site pCO2 (35-45) mmHg pO2 (75-100) mmHg Base Excess (-2.0-2.0) O2 Saturation (94-100) g/dF ABG pH (7.35-7.45) ABG HCO3 (22-28) ABG O2 Sat (Measured) (95-100) % Rommel Test A-a Gradient a/A Ratio Hemoglobin Carboxyhemoglobin (0.0-6.9) % THgb Methemoglobin (1.4-1.5) % Potassium (3.5-5.1) Temperature C POC O2 Flow Rate % Sodium (137-145) mmol/L Chloride (98-107) mmol/L Carbon Dioxide (22-30) mmol/L Anion Gap (5-15) MEQ/L BUN (7-17) mg/dL Creatinine (0.52-1.04) mg/dL Estimated GFR ML/MIN Glucose (74-106) mg/dL POC Glucometer 127 H (74 to 106) mg/dL Calcium (8.4-10.2) mg/dL Total Bilirubin (0.2-1.3) mg/dL AST (14-36) U/L ALT (0-35) U/L Alkaline Phosphatase (38-126) U/L Troponin I < 0.012 (0.000-0.034) ng/mL Serum Total Protein (6.3-8.2) g/dL Albumin (3.5-5.0) g/dL Salicylates (2-20) mg/dL SARS-CoV-2 (PCR) (NEGATIVE) 04/15/21 04/15/21 Range/Units 04:38 05:21 WBC (4.0-10.5) K/mm3 RBC (4.1-5.4) M/mm3 Hgb (12.0-16.0) gm/dl Hct (35-47) % MCV (78-100) fl MCH (26-32) pg MCHC (32-36) g/dl RDW (11.5-14.0) % Plt Count (150-450) K/mm3 MPV (7.5-11.0) fl Gran % (36.0-66.0) % Eos # (Auto) (0-0.5) Absolute Lymphs (auto) (1.0-4.6) Absolute Monos (auto) (0.0-1.3) Lymphocytes % (24.0-44.0) % Monocytes % (0.0-12.0) % Eosinophils % (0.00-5.0) % Basophils % (0.0-0.4) % Absolute Granulocytes (1.4-6.9) Basophils # (0-0.4) Puncture Site pCO2 (35-45) mmHg pO2 (75-100) mmHg Base Excess (-2.0-2.0) O2 Saturation (94-100) g/dF ABG pH (7.35-7.45) ABG HCO3 (22-28) ABG O2 Sat (Measured) (95-100) % Rommel Test A-a Gradient a/A Ratio Hemoglobin Carboxyhemoglobin (0.0-6.9) % THgb Methemoglobin (1.4-1.5) % Potassium 3.8 (3.5-5.1) Temperature C POC O2 Flow Rate % Sodium 145 (137-145) mmol/L Chloride 115 H (98-107) mmol/L Carbon Dioxide 19 L (22-30) mmol/L Anion Gap 14.5 (5-15) MEQ/L BUN 22 H (7-17) mg/dL Creatinine 1.33 H (0.52-1.04) mg/dL Estimated GFR 43.6 ML/MIN Glucose 126 H (74-106) mg/dL POC Glucometer 128 H (74 to 106) mg/dL Calcium 7.8 L (8.4-10.2) mg/dL Total Bilirubin 0.30 (0.2-1.3) mg/dL AST 41 H (14-36) U/L ALT 41 H (0-35) U/L Alkaline Phosphatase 105 (38-126) U/L Troponin I (0.000-0.034) ng/mL Serum Total Protein 6.6 (6.3-8.2) g/dL Albumin 3.7 (3.5-5.0) g/dL Salicylates (2-20) mg/dL SARS-CoV-2 (PCR) (NEGATIVE) Radiology Exams: Radiology Procedures Category Date Time Status CAROTID BILATERAL [US] Urgent Exams 04/14/21 17:35 Completed CHEST 1 VIEW (PORTABLE) Stat Exams 04/14/21 04:50 Completed ECHO W/2D AND DOPPLER [US] Routine Exams 04/14/21 17:35 Taken HEAD WITHOUT CONTRAST [CT] Stat Exams 04/14/21 04:51 Completed MRI BRAIN W/O CONTRAST [MRI] Routine Exams 04/15/21 00:00 Ordered Assessment/Plan (1) AMS (altered mental status) Current Visit: Yes Status: Acute Qualifiers: Altered mental status type: disorientation Qualified Code(s): R41.0 - Disorientation, unspecified Assessment & Plan: Much improved over yesterday. When she is fully oriented, will be able to question whether she may have ingested something else in addition to BZD. Will attempt MRI brain today, if pt can cooperate. Advancing diet as tolerated today. Code(s): R41.82 - ALTERED MENTAL STATUS, UNSPECIFIED (2) Acute renal injury Current Visit: Yes Status: Acute Assessment & Plan: improved - eGFR 43.6, up from 14.6 Code(s): N17.9 - ACUTE KIDNEY FAILURE, UNSPECIFIED (3) UTI (urinary tract infection) Current Visit: Yes Status: Acute Qualifiers: Urinary tract infection type: acute cystitis Hematuria presence: without hematuria Qualified Code(s): N30.00 - Acute cystitis without hematuria Assessment & Plan: on day #2 rocephin IV. culture pending. Code(s): N39.0 - URINARY TRACT INFECTION, SITE NOT SPECIFIED (4) Syncope Current Visit: Yes Status: Acute Qualifiers: Syncope type: unspecified Qualified Code(s): R55 - Syncope and collapse Code(s): R55 - SYNCOPE AND COLLAPSE (5) COPD (chronic obstructive pulmonary disease) Current Visit: No Status: Chronic Qualifiers: COPD type: chronic bronchitis Chronic bronchitis type: unspecified Qualified Code(s): J42 - Unspecified chronic bronchitis (6) Diabetes Current Visit: No Status: Chronic Qualifiers: Diabetes mellitus type: type 2 Diabetes mellitus complication status: with hyperglycemia Code(s): E11.9 - TYPE 2 DIABETES MELLITUS WITHOUT COMPLICATIONS (7) Hypertension Current Visit: No Status: Chronic Qualifiers: Hypertension type: primary hypertension Qualified Code(s): I10 - Essential (primary) hypertension Code(s): I10 - ESSENTIAL (PRIMARY) HYPERTENSION
[2021-04-15] MEDS ORDERED: Zofran 4 MG/2 ML VIAL IV PRN (08:35)
[2021-04-15] MEDS: ROCEPHIN 1 Gm-D5w 50 ml Bag** 1 G/50 ML IVPB IV SCH (09:04)
[2021-04-15] MEDS ORDERED: [UNRECOGNIZED DRUG - REMARK] MM PRN (10:06)
[2021-04-15] MEDS ORDERED: PATIENT OWN MEDICATION PO PRN (10:30)
--- NOTE | 2021-04-15 10:34 | XRAY ---
Indication: Acute mental status change. Overdose. Sagittal, coronal, and axial MRI brain performed without contrast using T1, T2, FLAIR, diffusion, and ADC sequences. Comparison: None There is age-appropriate global atrophy. Tiny left basilar ganglia remote lacunar infarct. No acute intracranial hemorrhage, abnormal extra-axial fluid collection, or mass effect. Diffusion images are negative for restricted signal. Fourth ventricle is midline without hydrocephalus. 7/8 cranial nerve complex bilaterally symmetric. Normal flow-void signal within the major intracerebral circulation. Normal appearing craniocervical junction and sella turcica. Impression: 1. Tiny lacunar infarct left basal ganglia. 2. Remaining MRI brain without contrast exam is negative.
[2021-04-15] MEDS: Klor Con 10 MEQ PO SCH ×2 (10:37→21:36)
[2021-04-15] MEDS: NEURONTIN 300 MG PO SCH ×3 (10:38→21:41)
[2021-04-15] MEDS: Cozaar 50 MG PO SCH ×2 (10:38→21:35)
[2021-04-15] MEDS: Toprol Xl 50 MG PO SCH ×2 (10:38→21:36)
[2021-04-15] MEDS: Flonase NASAL NS SCH (10:38)
[2021-04-15] MEDS: Ditropan 5 MG PO SCH ×2 (10:38→21:35)
[2021-04-15] MEDS: PLAVIX 75 MG Tablet PO SCH (10:38)
[2021-04-15] MEDS: PATIENT OWN MEDICATION OP SCH ×2 (10:43→21:41)
[2021-04-15] MEDS: ZOCOR 20MG PO SCH (21:35)
[2021-04-15] MEDS ORDERED: LIPITOR 40MG PO SCH (22:00)
[2021-04-15] MEDS ORDERED: NON-FORMULARY ITEM (Azelastine Hcl [Azelastine Hcl] 6 ML Drops) OP SCH (22:00)
[2021-04-15] MEDS: TYLENOL EXTRA STRENGTH 500 MG PO PRN (22:43)
[2021-04-16] MEDS: TYLENOL EXTRA STRENGTH 500 MG PO PRN ×3 (07:52→21:20)
[2021-04-16] MEDS: Cozaar 50 MG PO SCH ×2 (09:53→21:18)
[2021-04-16] MEDS: Ditropan 5 MG PO SCH ×2 (09:53→21:19)
[2021-04-16] MEDS: Flonase NASAL NS SCH (09:53)
[2021-04-16] MEDS: NEURONTIN 300 MG PO SCH ×3 (09:54→21:18)
[2021-04-16] MEDS: PATIENT OWN MEDICATION OP SCH ×2 (09:54→22:06)
[2021-04-16] MEDS: Klor Con 10 MEQ PO SCH ×2 (09:54→21:18)
--- NOTE | 2021-04-16 09:54 | PCM.DS ---
Discharge Summary Date of Admission: 04/14/21 10:38 Admitting Physician: SHERIF DUKES Consults: Consults on Case 04/16/21 09:45 Consult Tele-Health [Tele-Health Consult] ROUTINE Primary Care Provider: SHERIF DUKES Allergies Allergies lisinopril Allergy (Verified 04/07/20 18:35) Hospital Summary - Hospital Course Hospital Course: Pt is 60 yo female pt of mine from [facility] with Bipolar, NANI, DM, COPD, neuropathy, HTN hx hypercalcemia who was brought in through ER with altered mental status. Her boyfriend found her down in her apartment. When EMS arrived, she was able to assist partially with transferring to the cot. In ER her CT head was nonacute. Found to have UTI and acute renal failure, but otherwise labs noncontributory. She was admitted to ICU and for the first almost 24 hours was not responsive in any meaningful way - initially was sleeping and would only partially rouse to sternal rub. She was given Romazicon with some results - however it was discontinued when she had some jerking movements. After that, she was lying quietly with her eyes open, would open her mouth as though to yawn, but no other movements. Would not follow commands. Then, at about 10-11 pm the day after admission, she woke up and started talking. Yesterday when I saw her, she was oriented to place and not time. Today she is oriented to place and knows the day is the , says it is March at first but with minimal prompting remembers April. She still says the year is "1921" even when asked to repeat it. She would very much like to go home. She denies any use of BZD. Denies use of other illegal substances, specifically bath salts or K2. Denies recent depression or suicidal ideation. She is complaining of abdominal pain for the past 2 months - lower abdomen, constant, 5/10. BMs have been regular. Pain is better with dramamine. Has had some vomiting but no melena or hematochezia. She had a colonoscopy she thinks about 1-2 yrs ago here at [facility], and had an EGD at some point prior to that. If she is totally oriented later today, may be able to send her home. Will need her to get a [facility] consult first. F/u with me in office in 1 week. - Vitals & Intake/Output Vital Signs: Vital Signs Temperature 97.3 F 04/16/21 07:46 Pulse Rate 59 L 04/16/21 08:00 Respiratory Rate 15 04/16/21 07:46 Blood Pressure 101/67 04/16/21 07:46 O2 Sat by Pulse Oximetry 100 04/16/21 07:55 Intake & Output: Intake & Output 04/13/21 04/14/21 04/15/21 04/16/21 11:59 11:59 11:59 11:59 Intake Total 1300 2730 Output Total 3350 600 Balance -20490 Weight 84.3 kg - Lab Result Diagrams: 04/15/21 04:38 04/15/21 04:38 Lab Results-Last 24 Hrs: Lab Results-Last 24 Hours 04/15/21 04/15/21 04/15/21 Range/Units 05:07 11:11 15:59 POC Glucometer 147 H 195 H (74 to 106) mg/dL Hemoglobin A1c 5.82 (4.5-6.0) % 04/15/21 04/16/21 Range/Units 21:33 07:15 POC Glucometer 174 H 114 H (74 to 106) mg/dL Hemoglobin A1c (4.5-6.0) % Micro Results-Entire Visit: Microbiology 04/14/21 05:24 Urine Culture - Final Urine, Catheterized Klebsiella Pneumoniae 04/14/21 05:20 Blood Culture - Preliminary Blood NO GROWTH TO DATE 04/14/21 05:15 Blood Culture - Preliminary Blood NO GROWTH TO DATE Accuchecks Date 04/16/21 Date 04/15/21 Date 04/15/21 Date 04/15/21 Time 07:36 - Radiology Exams Ordered Rad Exams-Entire Visit: Radiology Procedures Category Date Time Status CAROTID BILATERAL [US] Urgent Exams 04/14/21 17:35 Completed ECHO W/2D AND DOPPLER [US] Routine Exams 04/14/21 17:35 Taken MRI BRAIN W/O CONTRAST [MRI] Routine Exams 04/15/21 00:00 Completed - Procedures and Test Procedures and Tests throughout Hospitalization: Therapy Orders & Screens 04/14/21 05:31 Respiratory Therapy Assessment DAILY Comment: 04/14/21 14:20 Oxygen Nasal Cannula 2 lpm Comment: Diagnosis: Benzodiazepine overdose, altered mental status Discharge Exam General Appearance: no apparent distress, alert Neurologic Exam: cooperative, other (says the wrong year) Eye Exam: eyes nml inspection Ears, Nose, Throat Exam: moist mucous membranes Neck Exam: normal inspection Respiratory Exam: normal breath sounds, lungs clear, No crackles/rales, No rhonchi, No wheezing Cardiovascular Exam: regular rate/rhythm, normal heart sounds, No murmur Gastrointestinal/Abdomen Exam: soft, normal bowel sounds, tenderness (LLQ), No distention, No mass, No guarding, No rebound Extremity Exam: No pedal edema, No swelling Skin Exam: normal color, warm, dry, No rash Final Diagnosis/Problem List - Final Discharge Diagnosis/Problem (1) AMS (altered mental status) Current Visit: Yes Status: Resolved Code(s): R41.82 - ALTERED MENTAL STATUS, UNSPECIFIED (2) Acute renal injury Current Visit: Yes Status: Acute Assessment & Plan: recheck labs today. was much improved yesterday. Code(s): N17.9 - ACUTE KIDNEY FAILURE, UNSPECIFIED (3) UTI (urinary tract infection) Current Visit: Yes Status: Acute Assessment & Plan: positive culture for K. pneumoniae - treating with rocephin (day #3), to which it is susceptible. Code(s): N39.0 - URINARY TRACT INFECTION, SITE NOT SPECIFIED (4) Syncope Current Visit: Yes Status: Acute Assessment & Plan: had a hx reported by family member - not recent. Echo and carotid dopplers done. MRI brain done w/o contrast d/t renal function - was nonacute. remote basal ganglia infarct. Code(s): R55 - SYNCOPE AND COLLAPSE (5) COPD (chronic obstructive pulmonary disease) Current Visit: No Status: Chronic (6) Diabetes Current Visit: No Status: Chronic Assessment & Plan: Taking her off her metformin, at least until we can be sure her renal function is stable at a level conducive to metformin tx. Code(s): E11.9 - TYPE 2 DIABETES MELLITUS WITHOUT COMPLICATIONS (7) Hypertension Current Visit: No Status: Chronic Code(s): I10 - ESSENTIAL (PRIMARY) HYPER TENSION (8) Abdominal pain Current Visit: No Status: Chronic Assessment & Plan: checking abd/pelvis CT (no contrast due to renal function). Starting pt on PPI. Will get copies of EGD and colonoscopy. F/u outpatient. Code(s): R10.9 - UNSPECIFIED ABDOMINAL PAIN - Discharge Disposition: Home, Self-Care Condition: Good Prescriptions: New PANTOPRAZOLE 40 mg Tablet [Protonix 40MG Tablet] 40 mg PO DAILY #30 tab Continue Fluticasone Propionate [Flonase NASAL] 1 spray NS DAILY Potassium Chloride 10 Meq Tab* [Klor Con 10 MEQ] 20 meq PO BID Atorvastatin Calcium 80 mg PO HS Losartan Potassium 50 mg [Cozaar 50 MG] 50 mg PO BID Metoprolol Succinate 50 mg [Toprol Xl 50 MG] 50 mg PO BID Oxybutynin Chloride 5 mg PO BID Clopidogrel Bisulfate 75 mg [PLAVIX 75 MG Tablet] 75 mg PO DAILY Insulin Glargine,Hum.rec.anlog [Basaglar Kwikpen U-100] 20 units SQ HS Gabapentin 300 mg [Neurontin 300 mg] 300 mg PO TID Torsemide 50 mg PO BID Azelastine HCl 1 drop OP BID Sodium Citrate Dihydrate 230 mg PO Q4-6HPRN PRN PRN Reason: Nausea/Vomiting Acetaminophen 500 mg [Tylenol Extra Strength 500 mg] 1,000 mg PO Q4HPRN PRN PRN Reason: Mild To Moderate Pain Saliva Stimulant Comb. No.3 [Biotene Moisturizing Mouth] 1 spray MM Q4-6HPRN PRN PRN Reason: DRY MOUTH Discontinued Metformin HCl [Glucophage] 1,000 mg PO BID Nystatin 5 ml PO Q6H Follow up with: SHERIF DUKES [Primary Care Provider] - 04/22/21 2:30 pm
[2021-04-16] MEDS: Toprol Xl 50 MG PO SCH ×2 (09:55→21:18)
[2021-04-16] MEDS: PLAVIX 75 MG Tablet PO SCH (09:55)
[2021-04-16] MEDS: Protonix 40MG Tablet PO SCH (09:59)
[2021-04-16] MEDS: ROCEPHIN 1 Gm-D5w 50 ml Bag** 1 G/50 ML IVPB IV SCH (09:59)
--- NOTE | 2021-04-16 10:55 | XRAY ---
Indication: Abdomen pain 2.5 months. Multiple contiguous axial images obtained through the abdomen and pelvis without contrast. Comparison: September 05, 2017. Lung bases again demonstrates minimal bibasilar dependent atelectasis. No infiltrate or effusion. Heart not enlarged. Stomach is now distended with food/fluid. Noncontrasted stomach and bowel loops nonobstructed. Normal appendix. Increasing mild scattered sigmoid diverticulosis without diverticulitis. Again cholecystectomy and bilateral tubal ligation clips. No free fluid/air. Again incidental 13.1 cm splenomegaly with tiny calcified granulomas, small left lower renal cyst, and left ovary benign chunky calcification. Remaining liver, pancreas, spleen, adrenal glands, kidneys, ureters, bladder, and uterus appear unremarkable for noncontrast exam. Mild scattered aortoiliac calcifications without AAA. Osseous structures intact again with lower lumbar degenerative changes. New L5-S1 degenerative vacuum disc phenomena. No ventral or inguinal hernias. Impression: 1. Again splenomegaly with calcified granulomas, sigmoid diverticulosis, left renal cyst, benign left ovary calcification, and chronic bony findings. 2. Remaining CT abdomen/pelvis without contrast exam is negative.
[2021-04-16 11:14] LABS: ALBUMIN 3.8 g/dL (3.5-5.0); ALKALINE PHOSPHATASE 84 U/L (38-126); ANION GAP 14.9 MEQ/L (5-15); BLOOD UREA NITROGEN 17 mg/dL (7-17); CHLORIDE 115 mmol/L (98-107); Calcium 7.7 mg/dL (8.4-10.2); Carbon Dioxide 20 mmol/L (22-30); Creatinine 1 0.99 mg/dL (0.52-1.04); EST GLOMERULAR FILTRATION RATE > 60.0 ML/MIN; Glucose 178 mg/dL (74-106); SGOT/AST 36 U/L (14-36); SGPT/ALT 34 U/L (0-35); SODIUM 146 mmol/L (137-145); Total Protein 6.4 g/dL (6.3-8.2)
[2021-04-16 11:26] LABS: Absolute Neutrophil Ct (ANC) 4.13 (1.4-6.9); BASOPHIL % 0.4 % (0.0-0.4); Basophil (Absolute #) 0.03 (0-0.4); Eosinophil % 1.9 % (0.00-5.0); Eosinophil (Absolute #) 0.14 (0-0.5); Hematocrit 29.3 % (35-47); Lymphocyte (Absolute #) 2.51 (1.0-4.6); Lymphocytes % 34.4 % (24.0-44.0); Mean Corpuscular Hemoglobin 28.6 pg (26-32); Mean Corpuscular Hgb Concent. 30.7 g/dl (32-36); Mean Platelet Volume 11.7 fl (7.5-11.0); Monocyte (Absolute #) 0.48 (0.0-1.3); Monocytes % 6.6 % (0.0-12.0); Neutrophil % 56.7 % (36.0-66.0); Platelet Count 213 K/mm3 (150-450); Red Blood Count 3.15 M/mm3 (4.1-5.4); White Blood Count 7.3 K/mm3 (4.0-10.5)
[2021-04-16] MEDS ORDERED: Nicoderm CQ 21 MG TOP SCH (15:00)
[2021-04-16] MEDS ORDERED: ANTIVERT 25 MG PO PRN (15:13)
[2021-04-16] MEDS ORDERED: XYLOCAINE 1% HCL 20 ML MDV IJ PRN (15:32)
[2021-04-16] MEDS: ZOCOR 20MG PO SCH (21:18)
[2021-04-17] MEDS: TYLENOL EXTRA STRENGTH 500 MG PO PRN ×2 (03:10→07:49)
[2021-04-17 06:24] LABS: Absolute Neutrophil Ct (ANC) 3.85 (1.4-6.9); BASOPHIL % 0.4 % (0.0-0.4); Basophil (Absolute #) 0.03 (0-0.4); Eosinophil % 2.8 % (0.00-5.0); Eosinophil (Absolute #) 0.21 (0-0.5); Hemoglobin 8.6 gm/dl (12.0-16.0); Lymphocyte (Absolute #) 3.03 (1.0-4.6); Lymphocytes % 39.8 % (24.0-44.0); Mean Cell Volume 94.3 fl (78-100); Mean Corpuscular Hgb Concent. 30.7 g/dl (32-36); Mean Platelet Volume 11.6 fl (7.5-11.0); Monocyte (Absolute #) 0.49 (0.0-1.3); Monocytes % 6.4 % (0.0-12.0); Neutrophil % 50.6 % (36.0-66.0); Platelet Count 201 K/mm3 (150-450); Red Blood Count 2.97 M/mm3 (4.1-5.4); Red Cell Distribution Width 15.5 % (11.5-14.0); White Blood Count 7.6 K/mm3 (4.0-10.5)
[2021-04-17 06:29] LABS: ALBUMIN 3.4 g/dL (3.5-5.0); ALKALINE PHOSPHATASE 81 U/L (38-126); ANION GAP 11.7 MEQ/L (5-15); BLOOD UREA NITROGEN 16 mg/dL (7-17); CHLORIDE 116 mmol/L (98-107); Calcium 7.6 mg/dL (8.4-10.2); Carbon Dioxide 17 mmol/L (22-30); Creatinine 1 0.77 mg/dL (0.52-1.04); EST GLOMERULAR FILTRATION RATE > 60.0 ML/MIN; Glucose 117 mg/dL (74-106); Potassium 4.3 mmol/L (3.5-5.1); SGOT/AST 29 U/L (14-36); SGPT/ALT 28 U/L (0-35); SODIUM 140 mmol/L (137-145); Total Protein 6.2 g/dL (6.3-8.2)
[2021-04-17] MEDS: Flonase NASAL NS SCH (09:51)
[2021-04-17] MEDS: PLAVIX 75 MG Tablet PO SCH (09:52)
[2021-04-17] MEDS: Protonix 40MG Tablet PO SCH (09:52)
[2021-04-17] MEDS: Klor Con 10 MEQ PO SCH (09:53)
[2021-04-17] MEDS: Toprol Xl 50 MG PO SCH (09:53)
[2021-04-17] MEDS: NEURONTIN 300 MG PO SCH (09:53)
[2021-04-17] MEDS: PATIENT OWN MEDICATION OP SCH (09:53)
[2021-04-17] MEDS: Ditropan 5 MG PO SCH (09:53)
[2021-04-17] MEDS: Cozaar 50 MG PO SCH (09:54)
[2021-04-17] MEDS ORDERED: Rocephin 1000 MG INJ IM ONE (10:00)
[2021-04-17 11:20] VITALS: BP 153/69; PULSE 62; O2SAT 97
--- NOTE | 2021-04-19 13:44 | ECHO ---
DATE OF PROCEDURE: 04/19/2021 CLINICAL INFORMATION: Altered mental state with an overdose. The M-mode 2D, and Doppler echocardiogram including color flow Doppler is limited due to lung habitus and the patient being unresponsive. The left ventricle is normal in size at 4.9 cm. There is no thrombus noted. The septal wall thickness is normal at 1.0 cm. The left ventricular posterior wall thickness is 1.2 cm. There is normal contractility of the left ventricle. The ejection fraction is calculated to be 71%. There is no thrombus in the left ventricle. The right ventricle is grossly normal. The left atrium is normal at 3.4 cm. The interatrial septum is intact. The right atrium is not well visualized. The aortic valve opens well. There is no aortic regurgitation. There is mild mitral regurgitation. There is mild tricuspid regurgitation. The right ventricular systolic pressure is normal at 22 mm of Mercury. The pulmonic valve is not well visualized. The aortic root is normal at 3.2 cm. There is no pericardial effusion present. IMPRESSION: 1) NORMAL CONTRACTILITY OF THE LEFT VENTRICLE. 2) MILD MITRAL REGURGITATION. 3) MILD TRICUSPID REGURGITATION. 4) NORMAL RIGHT VENTRICULAR SYSTOLIC PRESSURE.
== END 2021-04-17 12:30 | disposition home or self-care (01) ==
LOC: ED 04:41 → ICU 10:38
PROVIDERS: ADMIT Family Medicine; ATTEND Family Medicine
DX: R41.82 Altered mental status, unspecified (principal); R55 Syncope and collapse; N39.0 Urinary tract infection, site not specified; N17.9 Acute kidney failure, unspecified; I10 Essential (primary) hypertension; E11.9 Type 2 diabetes mellitus without complications; J44.9 Chronic obstructive pulmonary disease, unspecified; Z86.73 Personal history of transient ischemic attack (TIA), and cerebral infarction without residual deficits; Z79.01 Long term (current) use of anticoagulants; Z79.899 Other long term (current) drug therapy; R10.9 Unspecified abdominal pain; G62.9 Polyneuropathy, unspecified; F31.9 Bipolar disorder, unspecified; E88.09 Other disorders of plasma-protein metabolism, not elsewhere classified; E83.52 Hypercalcemia; Z20.822 Contact with and (suspected) exposure to COVID-19
CPT/HCPCS: 36000; 36415; 36600; 70450; 70551; 71045; 74176; 80053; 80307; 81001; 82140; 82375; 82550; 82803; 82947; 83036; 83605; 83735; 84443; 84484; 85025; 87040; 87077; 87086; 87186; 93005; 93041; 93268; 93306; 93880; 94640; 94760; 96360; 99284; G0378; U0003; J0696; J2405; A9270-GY; G0480

== ENCOUNTER 2021-08-04 06:24 | Day surgery (SDC) | payer OTHER ==
[2021-08-04] MEDS ORDERED: Lactated Ringers 1,000 ML IV SCH (07:00)
[2021-08-04] MEDS ORDERED: Xylocaine-Mpf 2% 5 Ml Vial ONE (07:59)
[2021-08-04] MEDS ORDERED: DIPRIVAN 200 MG/20 ML IV ONE ×2 (07:59→08:09)
[2021-08-04] MEDS ORDERED: Ephedrine Sulfate 50 MG/ML ONE (08:14)
[2021-08-04 09:31] VITALS: BP 131/78; PULSE 76; O2SAT 94
--- NOTE | 2021-08-04 09:48 | OP ---
SURGERY DATE/TIME: 08/04/2021 0757 PREOPERATIVE DIAGNOSES: 1) Persistent gastroesophageal reflux disease. 2) Low abdominal pain. 3) History of prior colon polyp. POSTOPERATIVE DIAGNOSES: 1) Normal EGD. 2) Small rectal polyp. PROCEDURES: 1) EGD. 2) Colonoscopy. SURGEON: Larry Barroso M.D. ANESTHESIA: MAC by Dhiraj Steve CRNA. ESTIMATED BLOOD LOSS: Minimal. SPECIMENS: There was a cold forceps polypectomy of rectal polyp. DESCRIPTION OF PROCEDURE: After informed written consent was obtained, the patient was taken to the endoscopy suite. She was placed in the left lateral decubitus position and a bite block inserted. After anesthesia was titrated to desired level of consciousness, the endoscope was inserted in the posterior oropharynx. Under direct visualization the esophagus was traversed. There was normal mucosal appearance free of any lesions or defects. The gastroesophageal junction likewise appeared normal upon entry into the stomach. Gastric mucosa had a normal rugated appearance. No obvious lesions or defects. Pylorus traversed and the duodenum likewise had a normal mucosal appearance. Upon withdrawal again mucosal structures were within normal limits. The scope was removed and the scopes were switched. Digital rectal exam showed normal sphincter tone and no internal lesions. The scope was inserted into the rectum and sequentially the entire colonic mucosa was traversed. The level of the cecum was reached and verified with direct visualization of the ileocecal valve. Upon withdrawal careful mucosal inspection revealed no gross abnormalities. Prep was noted to be fair to good. There was minimal liquid stool but visualization overall was good. There was an area in the sigmoid colon, which had previously been marked and tattooed, this area was inspected closely and there was no evidence of any recurrence of polyps or other mucosal abnormalities. In the rectum, there was a small sessile polyp, which was removed with cold forceps biopsy and sent for pathology testing. Retroflexion showed no internal lesions. The scope was removed and the patient was transferred to the recovery room in good condition.
== END 2021-08-04 09:30 | disposition home or self-care (01) ==
LOC: SDC 06:24
PROVIDERS: ATTEND Family Medicine
DX: Z09 Encounter for follow-up examination after completed treatment for conditions other than malignant neoplasm (principal); D12.8 Benign neoplasm of rectum; Z86.010 Personal history of colon polyps; K21.9 Gastro-esophageal reflux disease without esophagitis; R10.30 Lower abdominal pain, unspecified
CPT/HCPCS: 82947; 88305; J2704

== ENCOUNTER 2022-01-20 11:14 | Observation (INO) | payer OTHER ==
[2022-01-20] MEDS ORDERED: Sodium Chloride 0.9% 1000 ML 1,000 ML IV STA ×2 (11:54→13:49)
[2022-01-20] MEDS ORDERED: Sodium Chloride 0.9% 1000 ML 1,000 ML ONE ×2 (12:18→14:03)
--- NOTE | 2022-01-20 12:19 | XRAY ---
Indication: Hyperglycemia. Comparison: April 14, 2021. Portable apical lordotic chest demonstrates normal heart, lungs, and bony thorax with incidental tiny left lung calcified granuloma.
[2022-01-20 12:20] LABS: Absolute Neutrophil Ct (ANC) 4.11 x10^3/uL (1.4-6.9); Basophil (Absolute #) 0.07 x10^3/uL (0-0.4); Eosinophil % 2.2 % (0.00-5.0); Eosinophil (Absolute #) 0.13 x10^3/uL (0-0.5); Hemoglobin 12.8 g/dL (12.0-16.0); Lymphocyte (Absolute #) 1.34 x10^3/uL (1.0-4.6); Lymphocytes % 22.4 % (24.0-44.0); Mean Cell Volume 87.6 fL (78-100); Mean Corpuscular Hemoglobin 28.8 pg (26-32); Mean Corpuscular Hgb Concent. 32.8 g/dL (32-36); Mean Platelet Volume 11.3 fL (7.5-11.0); Monocyte (Absolute #) 0.31 x10^3/uL (0.0-1.3); Monocytes % 5.2 % (0.0-12.0); Neutrophil % 68.7 % (36.0-66.0); Platelet Count 188 x10^3/uL (150-450); Red Blood Count 4.45 x10^6/uL (4.1-5.4); Red Cell Distribution Width 13.7 % (11.5-14.0)
[2022-01-20 12:33] LABS: ALBUMIN 4.1 g/dL (3.5-5.0); ANION GAP 16.8 MEQ/L (5-15); BILIRUBIN,TOTAL 0.6 mg/dL (0.2-1.3); Calcium 10.3 mg/dL (8.4-10.2); Creatinine 1 1.14 mg/dL (0.52-1.04); EST GLOMERULAR FILTRATION RATE 51.9 ML/MIN; MAGNESIUM 2.4 mg/dL (1.6-2.3); Potassium 5.5 mmol/L (3.5-5.1); Total Protein 7.1 g/dL (6.3-8.2)
[2022-01-20 12:43] LABS: LIPASE 156 U/L (23-300); NT PRO BNP 212 pg/mL (0-900)
[2022-01-20 13:28] LABS: RBC 0-2 /HPF (0-2); WBC 0-2 /HPF (0-5)
[2022-01-20 13:39] LABS: Lactic Acid 2.1 (0.4-2.0); VBG BASE EXCESS -1.7 (-2.0-2.0); VBG HCO3- 25.2 meq/L (22-28); VBG HEMOGLOBIN 13.5; VBG POTASSIUM 6.1 (3.5-5.1); VBG pH 7.31 (7.32-7.42)
[2022-01-20 13:40] LABS: VBG CARBOXYHEMOGLOBIN 8.6 % T HGB (0.0-6.9)
[2022-01-20 13:48] LABS: Appearance CLEAR (CLEAR); Bilirubin NEGATIVE (NEGATIVE); Glucose 500 mg/dL (NEGATIVE); Ketones NEGATIVE (NEGATIVE); Nitrite NEGATIVE (NEGATIVE); Ph 5.5 (5-6); Protein,Urine Dip NEGATIVE (Negative); RBC NEGATIVE Ery/ul (0-5); Specific Gravity <=1.005 (1.005-1.025); Urobilinogen 0.2 mg/dL (0-1)
[2022-01-20 13:49] LABS: Dipstick done @ ? MAIN LAB; Urine Cultured Indicated? NO
[2022-01-20] MEDS: HUMULIN R 100 UNIT in Sodium Chloride 0.9% 100 ML IV PRN ×4 (14:01→17:51)
--- NOTE | 2022-01-20 14:31 | ERPHSYRPT ---
- History of Present Illness Time Seen by Provider: 01/20/22 11:39 Source: patient Exam Limitations: no limitations Patient Subjective Stated Complaint: hyperglyemia, went to Dr Kevin office for generally not feeling well for 2 weeks. Triage Nursing Assessment: pt to ED c/o hyperglycemia. pt was scheduled to see Dr Sepulveda at 1045 this morning. when she checked her blood sugar at 0920 it head HI on monitor, when she told the office that, they refered her to ED for hyperglycemia evaluation. pt declines any complaints at this time. Physician History: 61-year-old female with poorly controlled diabetes mellitus, recently started on Basaglar insulin and Farxiga but blood sugars staying constantly in 400s/500s and today was reading high on glucometer. Patient reports feeling thirsty, constant need to urinate and generalized weakness fatigue and tiredness. Denies any chest pain palpitations or shortness of breath. No abdominal pain nausea or vomiting. Patient went to see her primary care and blood sugar was high and is sent in ER for further evaluation. No recent fever chills or sick contact reported. Timing/Duration: week(s), constant, gradual onset, worse Severity: moderate, severe Associated Symptoms: loss of appetite, malaise, weakness Allergies/Adverse Reactions: lisinopril Allergy (Verified 01/20/22 11:42) Anaphylactic Reaction Home Medications: Albuterol Sulfate [Albuterol Sulfate Hfa] 7 gm IH Q6HPRN PRN 07/28/21 [History] Amitriptyline HCl 25 mg [Amitriptyline 25 mg Tablet] 25 mg PO DAILY 07/28/21 [History] Atorvastatin Calcium [Lipitor] 80 mg PO DAILY 07/28/21 [History] Baclofen 10 mg [Lioresal 10 mg] 10 mg PO TID 07/28/21 [History] Fluticasone/Vilanterol [Breo Ellipta 100-25 Mcg INH] 1 each IH DAILY 07/28/21 [History] Furosemide 20 mg [Lasix 20 mg] 20 mg PO DAILY 07/28/21 [History] Gabapentin [Neurontin ] 300 mg PO TID 07/28/21 [History] Ibuprofen 200 mg PO Q4H 07/28/21 [History] Insulin Glargine,Hum.rec.anlog [Basaglar Kwikpen U-100] 20 unit SQ DAILY 07/28/21 [History] Loratadine 10 mg [Claritin 10 mg] 10 mg PO DAILY 07/28/21 [History] Losartan Potassium 50 mg [Cozaar 50 MG] 50 mg PO DAILY 07/28/21 [History] Metoprolol Tartrate [Lopressor] 50 mg PO BID 07/28/21 [History] PANTOPRAZOLE 40 mg Tablet [Protonix 40MG Tablet] 40 mg PO DAILY 07/28/21 [History] Promethazine HCl 25 mg PO Q4H PRN 07/28/21 [History] Hx Tetanus, Diphtheria Vaccination/Date Given: No Hx Influenza Vaccination/Date Given: Yes Hx Pneumococcal Vaccination/Date Given: Yes Immunizations Up to Date: Yes Travel Risk - International Travel Have you traveled outside of the country in past 3 weeks: No - Coronavirus Screening Are you exhibiting any of the following symptoms?: No Close contact with a COVID-19 positive Pt in past 14-21 Days: No - Vaccine Status Have you recieved a Covid-19 vaccination: No - Review of Systems Constitutional: Fatigue, Weakness Eyes: No Symptoms Ears, Nose, & Throat: No Symptoms Respiratory: No Symptoms Cardiac: No Symptoms Abdominal/Gastrointestinal: No Symptoms Genitourinary Symptoms: No Symptoms Musculoskeletal: No Symptoms Skin: No Symptoms Neurological: No Symptoms Psychological: No Symptoms Endocrine: No Symptoms Hematologic/Lymphatic: No Symptoms Immunological/Allergic: No Symptoms - Past Medical History Pertinent Past Medical History: Yes Neurological History: Migraines, Seizures, TIA ENT History: No Pertinent History Cardiac History: Arrhythmia, Hypertension, Other Respiratory History: COPD, Pneumonia, Sleep Apnea Endocrine Medical History: Diabetes Type II Musculoskeletal History: Osteoarthritis GI Medical History: GERD History: Renal Disease Psycho-Social History: Anxiety, Depression Female Reproductive Disorders: No Pertinent History Other Medical History: depression, anxiety, viri, cardiomyopathy - Past Surgical History Past Surgical History: Yes Neuro Surgical History: No Pertinent History Cardiac: No Pertinent History Respiratory: No Pertinent History Gastrointestinal: Cholecystectomy Genitourinary: No Pertinent History Musculoskeletal: No Pertinent History Female Surgical History: Section Other Surgical History: colonoscopy - Social History Smoking Status: Current every day smoker How long have you smoked: 45 years Exposure to second hand smoke: Yes Drug Use: marijuana Patient Lives Alone: No Significant Family History: no pertinent family hx - Nursing Vital Signs Nursing Vital Signs: Initial Vital Signs Temperature 96.5 F 01/20/22 11:20 Pulse Rate 82 01/20/22 11:20 Respiratory Rate 18 01/20/22 11:20 Blood Pressure 177/78 01/20/22 11:20 O2 Sat by Pulse Oximetry 98 01/20/22 11:20 Pain Scale Pain Intensity 0 - Physical Exam General Appearance: no apparent distress, alert Eye Exam: PERRL/EOMI, eyes nml inspection Ears, Nose, Throat Exam: normal ENT inspection, pharynx normal Neck Exam: normal inspection, non-tender, supple, full range of motion Respiratory Exam: normal breath sounds, lungs clear Cardiovascular Exam: regular rate/rhythm, normal heart sounds Gastrointestinal/Abdomen Exam: soft, normal bowel sounds, No tenderness Back Exam: normal inspection, normal range of motion Extremity Exam: normal inspection, normal range of motion Neurologic Exam: alert, oriented x 3, cooperative, checker bakery products II-XII nml as tested Skin Exam: normal color SpO2 Interpretation: normal SpO2: 96 O2 Delivery: Room Air Ordered Tests: Active Orders 24 hr Category Date Time Status Crane Engineer STAT Care 01/20/22 11:55 Active EKG-ER Only STAT Care 01/20/22 11:54 Active IV Insertion STAT Care 01/20/22 11:54 Active POCT Glucose Check STAT Care 01/20/22 11:54 Active CHEST 1 VIEW (PORTABLE) Stat Exams 01/20/22 11:55 Completed BNP [NT PRO BNP] Stat Lab 01/20/22 12:10 Completed CBC W DIFF Stat Lab 01/20/22 12:10 Completed CMP Stat Lab 01/20/22 12:10 Completed LIPASE Stat Lab 01/20/22 12:10 Completed Lactic Acid Urgent Lab 01/20/22 12:10 Completed MAGNESIUM Stat Lab 01/20/22 12:10 Completed POCT GLUCOSE Stat Lab 01/20/22 11:27 Received POCT GLUCOSE Stat Lab 01/20/22 14:11 Completed TROPONIN Q3H Lab 01/20/22 12:10 Completed TROPONIN Q3H Lab 01/20/22 15:00 Ordered TROPONIN Q3H Lab 01/20/22 18:00 Ordered TROPONIN Q3H Lab 01/20/22 21:00 Ordered TROPONIN Q3H Lab 01/21/22 00:00 Ordered UA W/RFX CULTURE Stat Lab 01/20/22 13:19 Completed VENOUS BLOOD GAS Urgent Lab 01/20/22 12:10 Completed Medication Summary Generic Name Dose Route Start Last Admin Trade Name Freq PRN Reason Stop Dose Admin Insulin Human Regular 100 unit 100 mls @ 8.301 mls/hr 01/20/22 13:42 01/20/22 14:01 / Sodium Chloride IV 02/19/22 13:41 0.1 unit/kg/hr .Q12H3M PRN 8.301 mls/hr DKA/HYPERGLYCEMIA Administration Protocol 0.1 UNIT/KG/HR Sodium Chloride 1,000 mls @ 999 mls/hr 01/20/22 13:49 01/20/22 14:05 Sodium Chloride 0.9% 1000 Ml IV 01/20/22 14:49 999 mls/hr .Q1H1M STA Administration Discontinued Medications Generic Name Dose Route Start Last Admin Trade Name Cuongq PRN Reason Stop Dose Admin Sodium Chloride 1,000 mls @ 999 mls/hr 01/20/22 11:54 01/20/22 13:37 Sodium Chloride 0.9% 1000 Ml IV 01/20/22 12:54 Infused .Q1H1M STA Infusion Sodium Chloride Confirm 01/20/22 12:18 Sodium Chloride 0.9% 1000 Ml Administered 01/20/22 12:19 Dose 1,000 mls @ ud .ROUTE .STK-MED ONE Sodium Chloride Confirm 01/20/22 14:03 Sodium Chloride 0.9% 1000 Ml Administered 01/20/22 14:04 Dose 1,000 mls @ ud .ROUTE .STK-MED ONE Lab/Rad Data: Laboratory Result Diagrams 01/20/22 12:10 01/20/22 12:10 Laboratory Results 01/20/22 01/20/22 01/20/22 Range/Units 14:11 13:19 12:10 WBC (4.0-10.5) x10^3/uL RBC (4.1-5.4) x10^6/uL Hgb (12.0-16.0) g/dL Hct (35-47) % MCV (78-100) fL MCH (26-32) pg MCHC (32-36) g/dL RDW (11.5-14.0) % Plt Count (150-450) x10^3/uL MPV (7.5-11.0) fL Gran % (36.0-66.0) % Immature Gran % (Auto) (0.00-0.4) % Nucleat RBC Rel Count (0.00-0.1) % Eos # (Auto) (0-0.5) x10^3/uL Immature Gran # (Auto) (0.00-0.03) x10^3u/L Absolute Lymphs (auto) (1.0-4.6) x10^3/uL Absolute Monos (auto) (0.0-1.3) x10^3/uL Absolute Nucleated RBC (0.00-0.01) x10^3u/L Lymphocytes % (24.0-44.0) % Monocytes % (0.0-12.0) % Eosinophils % (0.00-5.0) % Basophils % (0.0-0.4) % Absolute Granulocytes (1.4-6.9) x10^3/uL Basophils # (0-0.4) x10^3/uL pO2/FiO2 Ratio % VBG pH (7.32-7.42) VBG pCO2 at Pat Temp (42-55) mm/Hg VBG pO2 at Pat Temp (25-40) mm/Hg VBG HCO3 (22-28) meq/L VBG O2 Sat (Kiran) (95-100) VBG Base Excess (-2.0-2.0) VBG Hemoglobin VBG Carboxyhemoglobin (0.0-6.9) % T HGB POC Potassium (3.5-5.1) Sodium (137-145) mmol/L Potassium (3.5-5.1) mmol/L Chloride (98-107) mmol/L Carbon Dioxide (22-30) mmol/L Anion Gap (5-15) MEQ/L BUN (7-17) mg/dL Creatinine (0.52-1.04) mg/dL Estimated GFR ML/MIN Glucose (74-106) mg/dL POC Glucometer 581 H* (50 to 500) mg/dL Lactic Acid (0.4-2.0) Calcium (8.4-10.2) mg/dL Magnesium (1.6-2.3) mg/dL Total Bilirubin (0.2-1.3) mg/dL AST (14-36) U/L ALT (0-35) U/L Alkaline Phosphatase (38-126) U/L Troponin I < 0.012 (0.000-0.034) ng/mL NT-Pro-B Natriuret Pep (0-900) pg/mL Serum Total Protein (6.3-8.2) g/dL Albumin (3.5-5.0) g/dL Lipase (23-300) U/L Urinalys Dipstick Clnc MAIN LAB Urine Color YELLOW (YELLOW) Urine Appearance CLEAR (CLEAR) Urine pH 5.5 (5-6) Ur Specific [place] <=1.005 (1.005-1.025) POC Urine Protein Conf NEGATIVE (Negative) Urine Ketones NEGATIVE (NEGATIVE) Urine Nitrite NEGATIVE (NEGATIVE) Urine Bilirubin NEGATIVE (NEGATIVE) Urine Urobilinogen 0.2 (0-1) mg/dL Urine Leukocytes NEGATIVE (NEGATIVE) Urine WBC (Auto) 0-2 (0-5) /HPF Urine RBC (Auto) 0-2 (0-2) /HPF U Epithel Cells (Auto) NONE (FEW) /HPF Urine Bacteria (Auto) NONE (NEGATIVE) /HPF Urine RBC NEGATIVE (0-5) Irineo/ul Ur Culture Indicated? NO Urine Glucose 500 (NEGATIVE) mg/dL 01/20/22 01/20/22 01/20/22 Range/Units 12:10 12:10 12:10 WBC (4.0-10.5) x10^3/uL RBC (4.1-5.4) x10^6/uL Hgb (12.0-16.0) g/dL Hct (35-47) % MCV (78-100) fL MCH (26-32) pg MCHC (32-36) g/dL RDW (11.5-14.0) % Plt Count (150-450) x10^3/uL MPV (7.5-11.0) fL Gran % (36.0-66.0) % Immature Gran % (Auto) (0.00-0.4) % Nucleat RBC Rel Count (0.00-0.1) % Eos # (Auto) (0-0.5) x10^3/uL Immature Gran # (Auto) (0.00-0.03) x10^3u/L Absolute Lymphs (auto) (1.0-4.6) x10^3/uL Absolute Monos (auto) (0.0-1.3) x10^3/uL Absolute Nucleated RBC (0.00-0.01) x10^3u/L Lymphocytes % (24.0-44.0) % Monocytes % (0.0-12.0) % Eosinophils % (0.00-5.0) % Basophils % (0.0-0.4) % Absolute Granulocytes (1.4-6.9) x10^3/uL Basophils # (0-0.4) x10^3/uL pO2/FiO2 Ratio 21.0 % VBG pH 7.31 L (7.32-7.42) VBG pCO2 at Pat Temp 50 (42-55) mm/Hg VBG pO2 at Pat Temp 42 H (25-40) mm/Hg VBG HCO3 25.2 (22-28) meq/L VBG O2 Sat (Kiran) 75.0 L (95-100) VBG Base Excess -1.7 (-2.0-2.0) VBG Hemoglobin 13.5 VBG Carboxyhemoglobin 8.6 H* (0.0-6.9) % T HGB POC Potassium 6.1 H* (3.5-5.1) Sodium 125 L (137-145) mmol/L Potassium 5.5 H (3.5-5.1) mmol/L Chloride 93 L (98-107) mmol/L Carbon Dioxide 22 (22-30) mmol/L Anion Gap 16.8 H (5-15) MEQ/L BUN 26 H (7-17) mg/dL Creatinine 1.14 H (0.52-1.04) mg/dL Estimated GFR 51.9 ML/MIN Glucose 811 H* (74-106) mg/dL POC Glucometer (50 to 500) mg/dL Lactic Acid 2.1 H (0.4-2.0) Calcium 10.3 H (8.4-10.2) mg/dL Magnesium 2.4 H (1.6-2.3) mg/dL Total Bilirubin 0.60 (0.2-1.3) mg/dL AST 21 (14-36) U/L ALT 19 (0-35) U/L Alkaline Phosphatase 147 H (38-126) U/L Troponin I (0.000-0.034) ng/mL NT-Pro-B Natriuret Pep 212 (0-900) pg/mL Serum Total Protein 7.1 (6.3-8.2) g/dL Albumin 4.1 (3.5-5.0) g/dL Lipase 156 (23-300) U/L Urinalys Dipstick Clnc Urine Color (YELLOW) Urine Appearance (CLEAR) Urine pH (5-6) Ur Specific [place] (1.005-1.025) POC Urine Protein Conf (Negative) Urine Ketones (NEGATIVE) Urine Nitrite (NEGATIVE) Urine Bilirubin (NEGATIVE) Urine Urobilinogen (0-1) mg/dL Urine Leukocytes (NEGATIVE) Urine WBC (Auto) (0-5) /HPF Urine RBC (Auto) (0-2) /HPF U Epithel Cells (Auto) (FEW) /HPF Urine Bacteria (Auto) (NEGATIVE) /HPF Urine RBC (0-5) Irineo/ul Ur Culture Indicated? Urine Glucose (NEGATIVE) mg/dL 01/20/22 Range/Units 12:10 WBC 6.0 (4.0-10.5) x10^3/uL RBC 4.45 (4.1-5.4) x10^6/uL Hgb 12.8 (12.0-16.0) g/dL Hct 39.0 (35-47) % MCV 87.6 (78-100) fL MCH 28.8 (26-32) pg MCHC 32.8 (32-36) g/dL RDW 13.7 (11.5-14.0) % Plt Count 188 (150-450) x10^3/uL MPV 11.3 H (7.5-11.0) fL Gran % 68.7 H (36.0-66.0) % Immature Gran % (Auto) 0.3 (0.00-0.4) % Nucleat RBC Rel Count 0.0 (0.00-0.1) % Eos # (Auto) 0.13 (0-0.5) x10^3/uL Immature Gran # (Auto) 0.02 (0.00-0.03) x10^3u/L Absolute Lymphs (auto) 1.34 (1.0-4.6) x10^3/uL Absolute Monos (auto) 0.31 (0.0-1.3) x10^3/uL Absolute Nucleated RBC 0.00 (0.00-0.01) x10^3u/L Lymphocytes % 22.4 L (24.0-44.0) % Monocytes % 5.2 (0.0-12.0) % Eosinophils % 2.2 (0.00-5.0) % Basophils % 1.2 (0.0-0.4) % Absolute Granulocytes 4.11 (1.4-6.9) x10^3/uL Basophils # 0.07 (0-0.4) x10^3/uL pO2/FiO2 Ratio % VBG pH (7.32-7.42) VBG pCO2 at Pat Temp (42-55) mm/Hg VBG pO2 at Pat Temp (25-40) mm/Hg VBG HCO3 (22-28) meq/L VBG O2 Sat (Kiran) (95-100) VBG Base Excess (-2.0-2.0) VBG Hemoglobin VBG Carboxyhemoglobin (0.0-6.9) % T HGB POC Potassium (3.5-5.1) Sodium (137-145) mmol/L Potassium (3.5-5.1) mmol/L Chloride (98-107) mmol/L Carbon Dioxide (22-30) mmol/L Anion Gap (5-15) MEQ/L BUN (7-17) mg/dL Creatinine (0.52-1.04) mg/dL Estimated GFR ML/MIN Glucose (74-106) mg/dL POC Glucometer (50 to 500) mg/dL Lactic Acid (0.4-2.0) Calcium (8.4-10.2) mg/dL Magnesium (1.6-2.3) mg/dL Total Bilirubin (0.2-1.3) mg/dL AST (14-36) U/L ALT (0-35) U/L Alkaline Phosphatase (38-126) U/L Troponin I (0.000-0.034) ng/mL NT-Pro-B Natriuret Pep (0-900) pg/mL Serum Total Protein (6.3-8.2) g/dL Albumin (3.5-5.0) g/dL Lipase (23-300) U/L Urinalys Dipstick Clnc Urine Color (YELLOW) Urine Appearance (CLEAR) Urine pH (5-6) Ur Specific [place] (1.005-1.025) POC Urine Protein Conf (Negative) Urine Ketones (NEGATIVE) Urine Nitrite (NEGATIVE) Urine Bilirubin (NEGATIVE) Urine Urobilinogen (0-1) mg/dL Urine Leukocytes (NEGATIVE) Urine WBC (Auto) (0-5) /HPF Urine RBC (Auto) (0-2) /HPF U Epithel Cells (Auto) (FEW) /HPF Urine Bacteria (Auto) (NEGATIVE) /HPF Urine RBC (0-5) Irineo/ul Ur Culture Indicated? Urine Glucose (NEGATIVE) mg/dL - Progress Progress: improved, re-examined Progress Note: 01/20/22 14:34 She is given fluid bolus, work-up showed blood glucose 811 with a gap of 16 and bicarb of 22 along with mild ZAKIA and magnesium 2.4. Urine negative for ketones. Venous pH 7.31. Has a potassium of 5.5, EKG did not show any acute T wave ch anges. And I believe with fluids and insulin and will calm down. I believe patient has HHS, given another fluid bolus and started on normal saline and insulin drip. No obvious focus of infection. Discussed with Dr. Sepulveda and patient is being admitted to ICU. 01/20/22 14:41 Discussed with : Farzaneh Will see patient in: hospital (observation) Counseled pt/family regarding: lab results, diagnosis, need for follow-up, rad results, smoking cessation - Departure Departure Disposition: Observation Clinical Impression: Hyperosmolar hyperglycemic state (HHS), Hypermagnesemia Condition: Stable Critical Care Time: No Referrals: SHERIF DUKES [Primary Care Provider] - Follow up/PCP as directed
[2022-01-20 14:34] LABS: INFLUENZA A NEGATIVE (NEGATIVE); INFLUENZA B NEGATIVE (NEGATIVE); RESPIRATORY SYNCTIAL VIRUS NEGATIVE (Negative); SARS-CoV-2 Xpert Express NEGATIVE (NEGATIVE)
[2022-01-20] MEDS ORDERED: TYLENOL 325 MG PO PRN (15:10)
[2022-01-20] MEDS ORDERED: DUONEB 0.5-3 MG/3 ml Neb IH PRN (15:10)
[2022-01-20] MEDS ORDERED: Zofran 4 MG/2 ML VIAL IV PRN (15:10)
[2022-01-20 15:49] LABS: ALKALINE PHOSPHATASE 148 U/L (38-126); ANION GAP 16.9 MEQ/L (5-15); BLOOD UREA NITROGEN 25 mg/dL (7-17); CHLORIDE 102 mmol/L (98-107); Calcium 9.6 mg/dL (8.4-10.2); Carbon Dioxide 17 mmol/L (22-30); Creatinine 1 0.94 mg/dL (0.52-1.04); Direct Bilirubin 0.2 mg/dL (0.0-0.4); EST GLOMERULAR FILTRATION RATE > 60.0 ML/MIN; Glucose 471 mg/dL (74-106); Potassium 4.8 mmol/L (3.5-5.1); SGOT/AST 50 U/L (14-36); SGPT/ALT 21 U/L (0-35); SODIUM 131 mmol/L (137-145)
[2022-01-20] MEDS: Sodium Chloride 0.9% 1000 ML 1,000 ML IV SCH ×2 (15:59→23:18)
[2022-01-20] MEDS: MORPHINE SULFATE 2 MG INJ IV PRN ×2 (16:01→20:56)
[2022-01-20] MEDS: Nicoderm CQ 21 MG TOP SCH (16:46)
[2022-01-20] MEDS ORDERED: PHENERGAN 25 MG PO PRN (17:09)
[2022-01-20] MEDS: Lantus Insulin SQ SCH (17:28)
[2022-01-20] MEDS: CLARITIN 10 MG PO SCH (17:33)
[2022-01-20] MEDS: MAG-OX 400 PO SCH (17:33)
[2022-01-20] MEDS: PLAVIX Tablet PO SCH (17:33)
[2022-01-20] MEDS: Protonix 40MG Tablet PO SCH (17:33)
[2022-01-20] MEDS: ZOCOR 20MG PO SCH (17:33)
[2022-01-20] MEDS: Cozaar 50 MG PO SCH (17:34)
[2022-01-20] MEDS: Advair Hfa 115/21 Common canister IH SCH (18:58)
[2022-01-20] MEDS: VENTOLIN COMMON CANISTER IH SCH (18:58)
[2022-01-20 19:12] LABS: ALBUMIN 3.6 g/dL (3.5-5.0); ALKALINE PHOSPHATASE 128 U/L (38-126); ANION GAP 12.8 MEQ/L (5-15); BLOOD UREA NITROGEN 21 mg/dL (7-17); CHLORIDE 105 mmol/L (98-107); Calcium 8.9 mg/dL (8.4-10.2); Carbon Dioxide 20 mmol/L (22-30); Creatinine 1 0.89 mg/dL (0.52-1.04); Direct Bilirubin 0.1 mg/dL (0.0-0.4); EST GLOMERULAR FILTRATION RATE > 60.0 ML/MIN; Glucose 280 mg/dL (74-106); Potassium 4.4 mmol/L (3.5-5.1); SGOT/AST 22 U/L (14-36); SGPT/ALT 18 U/L (0-35); SODIUM 133 mmol/L (137-145); Total Protein 6.6 g/dL (6.3-8.2)
[2022-01-20] MEDS: Lopressor 50 MG PO SCH (20:57)
[2022-01-20] MEDS: NEURONTIN PO SCH (20:57)
[2022-01-20] MEDS ORDERED: NON-FORMULARY ITEM (Cyclobenzaprine Hcl [Cyclobenzaprine Hcl] 5 MG Tablet) PO SCH (22:00)
[2022-01-20] MEDS ORDERED: Cyclobenzaprine 10 MG PO SCH (22:00)
[2022-01-20 23:09] LABS: ALBUMIN 3.6 g/dL (3.5-5.0); ALKALINE PHOSPHATASE 136 U/L (38-126); ANION GAP 11.7 MEQ/L (5-15); BLOOD UREA NITROGEN 19 mg/dL (7-17); CHLORIDE 107 mmol/L (98-107); Calcium 8.8 mg/dL (8.4-10.2); Carbon Dioxide 19 mmol/L (22-30); Creatinine 1 0.82 mg/dL (0.52-1.04); EST GLOMERULAR FILTRATION RATE > 60.0 ML/MIN; Glucose 209 mg/dL (74-106); Potassium 4.1 mmol/L (3.5-5.1); SGOT/AST 22 U/L (14-36); SGPT/ALT 17 U/L (0-35); SODIUM 133 mmol/L (137-145); TROPONIN < 0.012 ng/mL (0.000-0.034); Total Protein 6.7 g/dL (6.3-8.2)
[2022-01-20] MEDS ORDERED: Dextrose 5% -0.45 NaCl 1000 ML 1,000 ML IV SCH (23:45)
[2022-01-21] MEDS: HUMALOG SQ PRN ×4 (02:17→10:32)
[2022-01-21 03:43] LABS: ALBUMIN 3.5 g/dL (3.5-5.0); ALKALINE PHOSPHATASE 110 U/L (38-126); BLOOD UREA NITROGEN 17 mg/dL (7-17); CHLORIDE 106 mmol/L (98-107); Calcium 8.7 mg/dL (8.4-10.2); Carbon Dioxide 19 mmol/L (22-30); Creatinine 1 0.79 mg/dL (0.52-1.04); EST GLOMERULAR FILTRATION RATE > 60.0 ML/MIN; Glucose 251 mg/dL (74-106); Potassium 4.1 mmol/L (3.5-5.1); SGOT/AST 22 U/L (14-36); SGPT/ALT 17 U/L (0-35); SODIUM 134 mmol/L (137-145); Total Protein 6.4 g/dL (6.3-8.2)
[2022-01-21 03:57] LABS: Absolute Neutrophil Ct (ANC) 3.48 x10^3/uL (1.4-6.9); Basophil (Absolute #) 0.05 x10^3/uL (0-0.4); Eosinophil % 2.3 % (0.00-5.0); Eosinophil (Absolute #) 0.16 x10^3/uL (0-0.5); Hematocrit 34.1 % (35-47); Hemoglobin 11.5 g/dL (12.0-16.0); Lymphocyte (Absolute #) 2.66 x10^3/uL (1.0-4.6); Lymphocytes % 38.7 % (24.0-44.0); Mean Cell Volume 87.2 fL (78-100); Mean Corpuscular Hemoglobin 29.4 pg (26-32); Mean Corpuscular Hgb Concent. 33.7 g/dL (32-36); Mean Platelet Volume 11.1 fL (7.5-11.0); Monocyte (Absolute #) 0.51 x10^3/uL (0.0-1.3); Monocytes % 7.4 % (0.0-12.0); Neutrophil % 50.8 % (36.0-66.0); Platelet Count 181 x10^3/uL (150-450); Red Blood Count 3.91 x10^6/uL (4.1-5.4); Red Cell Distribution Width 13.5 % (11.5-14.0); White Blood Count 6.9 x10^3/uL (4.0-10.5)
[2022-01-21] MEDS: Advair Hfa 115/21 Common canister IH SCH (06:55)
[2022-01-21] MEDS: VENTOLIN COMMON CANISTER IH SCH ×2 (06:56→10:40)
--- NOTE | 2022-01-21 08:49 | PCM.SSS ---
History of Present Illness - Chief Complaint Chief Complaint: [facility] History of Present Illness: is a 61 year old female who was admitted from ER with a blood sugar of 800, she reports her blood sugars have been in the 400-500 range in the last two weeks, her metformin was discontinued due to her renal function, her piccoloist started her on farxiga last week, she also reports compliance with her home insulin 20 units long acting daily, she is on prednisone 10mg daily which is chronic and not changed recently. she has increased thirst and urine output, otherwise feels well. she was on a drip last night, her blood sugar is around 200 this morning and she feels great and would really like to go home today. - Review of Systems Constitutional: No Fever, No Chills Respiratory: No Cough, No Short Of Breath Cardiac: No Chest Pain, No Edema, No Syncope Abdominal/Gastrointestinal: No Abdominal Pain, No Nausea, No Vomiting, No Diarrhea Genitourinary Symptoms: No Dysuria Skin: No Rash Endocrine: Polyuria, Polydipsia All Other Systems: Reviewed and Negative Medications & Allergies Home Medications: Home Medication List Albuterol Sulfate [Albuterol Sulfate Hfa] 7 gm IH Q6HPRN PRN 07/28/21 [History Confirmed 01/20/22] Amitriptyline HCl 25 mg [Amitriptyline 25 mg Tablet] 50 mg PO HS 07/28/21 [History Confirmed 01/20/22] Atorvastatin Calcium [Lipitor] 80 mg PO DAILY 07/28/21 [History Confirmed 01/20/22] Fluticasone/Vilanterol [Breo Ellipta 100-25 Mcg INH] 1 each IH DAILY 07/28/21 [History Confirmed 01/20/22] Furosemide 20 mg [Lasix 20 mg] 20 mg PO DAILY 07/28/21 [History Confirmed 01/20/22] Gabapentin [Neurontin ] 300 mg PO TID 07/28/21 [History Confirmed 01/20/22] Ibuprofen 200 mg PO Q4H PRN 07/28/21 [History Confirmed 01/20/22] Loratadine 10 mg [Claritin 10 mg] 10 mg PO DAILY 07/28/21 [History Confirmed 01/20/22] Losartan Potassium 50 mg [Cozaar 50 MG] 50 mg PO DAILY 07/28/21 [History Confirmed 01/20/22] Metoprolol Tartrate [Lopressor] 50 mg PO BID 07/28/21 [History Confirmed 01/20/22] PANTOPRAZOLE 40 mg Tablet [Protonix 40MG Tablet] 40 mg PO DAILY 07/28/21 [History Confirmed 01/20/22] Promethazine HCl 25 mg PO Q4H PRN 07/28/21 [History Confirmed 01/20/22] Clopidogrel Bisulfate [Clopidogrel] 75 mg PO DAILY #0 08/04/21 [Rx Confirmed 01/20/22] Cyclobenzaprine HCl 5 mg PO HS 01/20/22 [History Confirmed 01/20/22] Dapagliflozin Propanediol [Farxiga] 5 mg PO DAILY 01/20/22 [History Confirmed 01/20/22] Magnesium Oxide 400 mg [Mag-Ox 400] 400 mg PO DAILY 01/20/22 [History Confirmed 01/20/22] Insulin Glargine,Hum.rec.anlog [Basaglar Kwikpen U-100] 20 unit SQ BID #4 udpkt 01/21/22 [Rx] Insulin Lispro [Insulin Lispro Kwikpen U-100] 10 unit SQ BIDAC #2 packet [Rx] Pen Needle, Diabetic [1St Tier Unifine Pentips Plus] 1 each SQ QID #100 units 01/21/22 [Rx] Allergies/Adverse Reactions: Allergies Allergy/AdvReac Type Severity Reaction Status Date / Time lisinopril Allergy Anaphylactic Verified 01/20/22 11:42 Reaction - Past Medical History Past Medical History: Yes Neurological History: Migraines, Seizures, TIA ENT History: No Pertinent History Cardiac History: Arrhythmia, Hypertension, Other Respiratory History: COPD, Pneumonia, Sleep Apnea Endocrine Medical History: Diabetes Type II Musculoskelatal History: Osteoarthritis GI Medical History: GERD History: Renal Disease Pyscho-Social History: Anxiety, Depression Reproductive Disorders: No Pertinent History Comment: depression, anxiety, viri, cardiomyopathy - Female History Are you now?: No - Past Surgical History Past Surgical History: Yes Neuro Surgical History: No Pertinent History Cardiac History: No Pertinent History Respiratory Surgery: No Pertinent History GI Surgical History: Cholecystectomy Genitourinary Surgical Hx: No Pertinent History Musculskeletal Surgical Hx: No Pertinent History Female Surgical History: Section Other Surgical History: colonoscopy - Social History Smoking Status: Current every day smoker How long have you smoked: 45 years Exposure to second hand smoke: Yes Alcohol: None Drug Use: marijuana Significant Family History: no pertinent family hx - Physical Exam Vital Signs: Vital Signs - 24 hr Temp Pulse Resp BP BP Pulse Ox 01/21/22 07:34 98 F 66 18 95 01/21/22 06:57 64 16 93 L 01/21/22 05:47 63 20 97 01/21/22 05:00 97.1 F 66 22 133/72 98 01/21/22 04:00 97.1 F 63 16 106/78 98 01/21/22 03:00 65 96 01/21/22 02:00 63 94 L 01/21/22 01:00 64 93 L 01/21/22 00:00 97.3 F 67 20 108/68 97 01/20/22 23:00 67 16 95 01/20/22 22:00 69 97 01/20/22 21:00 69 97 01/20/22 19:44 70 20 92 L 01/20/22 19:00 97.6 F 71 20 117/65 93 L 01/20/22 18:58 68 22 95 01/20/22 18:00 69 24 144/89 96 01/20/22 17:00 65 22 151/77 96 01/20/22 16:47 99 H 19 97 01/20/22 16:00 66 20 01/20/22 15:55 97.0 F 77 20 161/67 97 01/20/22 15:13 97.0 F 77 20 161/67 97 01/20/22 14:42 96 01/20/22 14:18 97.8 F 69 24 156/85 98 01/20/22 13:38 96.5 F 78 24 139/84 96 01/20/22 11:20 96.5 F 82 18 177/78 98 General Appearance: no apparent distress Neurologic Exam: alert, oriented x 3 Respiratory Exam: diminished breath sounds, prolonged expirations Cardiovascular Exam: regular rate/rhythm, normal heart sounds, normal peripheral pulses Gastrointestinal/Abdomen Exam: soft, normal bowel sounds, No tenderness, No mass Extremity Exam: normal inspection, normal range of motion, pelvis stable Skin Exam: normal color, warm, dry, No rash Results - Labs Lab/Micro Results: Lab Results-Last 24 Hours 01/20/22 01/20/22 01/20/22 Range/Units 12:10 12:10 12:10 WBC 6.0 (4.0-10.5) x10^3/uL RBC 4.45 (4.1-5.4) x10^6/uL Hgb 12.8 (12.0-16.0) g/dL Hct 39.0 (35-47) % MCV 87.6 (78-100) fL MCH 28.8 (26-32) pg MCHC 32.8 (32-36) g/dL RDW 13.7 (11.5-14.0) % Plt Count 188 (150-450) x10^3/uL MPV 11.3 H (7.5-11.0) fL Gran % 68.7 H (36.0-66.0) % Immature Gran % (Auto) 0.3 (0.00-0.4) % Nucleat RBC Rel Count 0.0 (0.00-0.1) % Eos # (Auto) 0.13 (0-0.5) x10^3/uL Immature Gran # (Auto) 0.02 (0.00-0.03) x10^3u/L Absolute Lymphs (auto) 1.34 (1.0-4.6) x10^3/uL Absolute Monos (auto) 0.31 (0.0-1.3) x10^3/uL Absolute Nucleated RBC 0.00 (0.00-0.01) x10^3u/L Lymphocytes % 22.4 L (24.0-44.0) % Monocytes % 5.2 (0.0-12.0) % Eosinophils % 2.2 (0.00-5.0) % Basophils % 1.2 (0.0-0.4) % Absolute Granulocytes 4.11 (1.4-6.9) x10^3/uL Basophils # 0.07 (0-0.4) x10^3/uL pO2/FiO2 Ratio 21.0 % VBG pH 7.31 L (7.32-7.42) VBG pCO2 at Pat Temp 50 (42-55) mm/Hg VBG pO2 at Pat Temp 42 H (25-40) mm/Hg VBG HCO3 25.2 (22-28) meq/L VBG O2 Sat (Kiran) 75.0 L (95-100) VBG Base Excess -1.7 (-2.0-2.0) VBG Hemoglobin 13.5 VBG Carboxyhemoglobin 8.6 H* (0.0-6.9) % T HGB POC Potassium 6.1 H* (3.5-5.1) Sodium 125 L (137-145) mmol/L Potassium 5.5 H (3.5-5.1) mmol/L Chloride 93 L (98-107) mmol/L Carbon Dioxide 22 (22-30) mmol/L Anion Gap 16.8 H (5-15) MEQ/L BUN 26 H (7-17) mg/dL Creatinine 1.14 H (0.52-1.04) mg/dL Estimated GFR 51.9 ML/MIN Glucose 811 H* (74-106) mg/dL POC Glucometer (50 to 500) mg/dL Lactic Acid 2.1 H (0.4-2.0) Calcium 10.3 H (8.4-10.2) mg/dL Magnesium 2.4 H (1.6-2.3) mg/dL Total Bilirubin 0.60 (0.2-1.3) mg/dL Direct Bilirubin (0.0-0.4) mg/dL AST 21 (14-36) U/L ALT 19 (0-35) U/L Alkaline Phosphatase 147 H (38-126) U/L Troponin I (0.000-0.034) ng/mL NT-Pro-B Natriuret Pep (0-900) pg/mL Serum Total Protein 7.1 (6.3-8.2) g/dL Albumin 4.1 (3.5-5.0) g/dL Lipase (23-300) U/L Urinalys Dipstick Clnc Urine Color (YELLOW) Urine Appearance (CLEAR) Urine pH (5-6) Ur Specific Parnell (1.005-1.025) POC Urine Protein Conf (Negative) Urine Ketones (NEGATIVE) Urine Nitrite (NEGATIVE) Urine Bilirubin (NEGATIVE) Urine Urobilinogen (0-1) mg/dL Urine Leukocytes (NEGATIVE) Urine WBC (Auto) (0-5) /HPF Urine RBC (Auto) (0-2) /HPF U Epithel Cells (Auto) (FEW) /HPF Urine Bacteria (Auto) (NEGATIVE) /HPF Urine RBC (0-5) Irineo/ul Ur Culture Indicated? Urine Glucose (NEGATIVE) mg/dL Influenza Type A Ag (NEGATIVE) Influenza Type B Ag (NEGATIVE) RSV (PCR) (Negative) SARS-CoV-2 (PCR) (NEGATIVE) 01/20/22 01/20/22 01/20/22 Range/Units 12:10 12:10 13:19 WBC (4.0-10.5) x10^3/uL RBC (4.1-5.4) x10^6/uL Hgb (12.0-16.0) g/dL Hct (35-47) % MCV (78-100) fL MCH (26-32) pg MCHC (32-36) g/dL RDW (11.5-14.0) % Plt Count (150-450) x10^3/uL MPV (7.5-11.0) fL Gran % (36.0-66.0) % Immature Gran % (Auto) (0.00-0.4) % Nucleat RBC Rel Count (0.00-0.1) % Eos # (Auto) (0-0.5) x10^3/uL Immature Gran # (Auto) (0.00-0.03) x10^3u/L Absolute Lymphs (auto) (1.0-4.6) x10^3/uL Absolute Monos (auto) (0.0-1.3) x10^3/uL Absolute Nucleated RBC (0.00-0.01) x10^3u/L Lymphocytes % (24.0-44.0) % Monocytes % (0.0-12.0) % Eosinophils % (0.00-5.0) % Basophils % (0.0-0.4) % Absolute Granulocytes (1.4-6.9) x10^3/uL Basophils # (0-0.4) x10^3/uL pO2/FiO2 Ratio % VBG pH (7.32-7.42) VBG pCO2 at Pat Temp (42-55) mm/Hg VBG pO2 at Pat Temp (25-40) mm/Hg VBG HCO3 (22-28) meq/L VBG O2 Sat (Kiran) (95-100) VBG Base Excess (-2.0-2.0) VBG Hemoglobin VBG Carboxyhemoglobin (0.0-6.9) % T HGB POC Potassium (3.5-5.1) Sodium (137-145) mmol/L Potassium (3.5-5.1) mmol/L Chloride (98-107) mmol/L Carbon Dioxide (22-30) mmol/L Anion Gap (5-15) MEQ/L BUN (7-17) mg/dL Creatinine (0.52-1.04) mg/dL Estimated GFR ML/MIN Glucose (74-106) mg/dL POC Glucometer (50 to 500) mg/dL Lactic Acid (0.4-2.0) Calcium (8.4-10.2) mg/dL Magnesium (1.6-2.3) mg/dL Total Bilirubin (0.2-1.3) mg/dL Direct Bilirubin (0.0-0.4) mg/dL AST (14-36) U/L ALT (0-35) U/L Alkaline Phosphatase (38-126) U/L Troponin I < 0.012 (0.000-0.034) ng/mL NT-Pro-B Natriuret Pep 212 (0-900) pg/mL Serum Total Protein (6.3-8.2) g/dL Albumin (3.5-5.0) g/dL Lipase 156 (23-300) U/L Urinalys Dipstick Clnc MAIN LAB Urine Color YELLOW (YELLOW) Urine Appearance CLEAR (CLEAR) Urine pH 5.5 (5-6) Ur Specific Parnell <=1.005 (1.005-1.025) POC Urine Protein Conf NEGATIVE (Negative) Urine Ketones NEGATIVE (NEGATIVE) Urine Nitrite NEGATIVE (NEGATIVE) Urine Bilirubin NEGATIVE (NEGATIVE) Urine Urobilinogen 0.2 (0-1) mg/dL Urine Leukocytes NEGATIVE (NEGATIVE) Urine WBC (Auto) 0-2 (0-5) /HPF Urine RBC (Auto) 0-2 (0-2) /HPF U Epithel Cells (Auto) NONE (FEW) /HPF Urine Bacteria (Auto) NONE (NEGATIVE) /HPF Urine RBC NEGATIVE (0-5) Irineo/ul Ur Culture Indicated? NO Urine Glucose 500 (NEGATIVE) mg/dL Influenza Type A Ag (NEGATIVE) Influenza Type B Ag (NEGATIVE) RSV (PCR) (Negative) SARS-CoV-2 (PCR) (NEGATIVE) 01/20/22 01/20/22 01/20/22 Range/Units 13:51 14:11 15:23 WBC (4.0-10.5) x10^3/uL RBC (4.1-5.4) x10^6/uL Hgb (12.0-16.0) g/dL Hct (35-47) % MCV (78-100) fL MCH (26-32) pg MCHC (32-36) g/dL RDW (11.5-14.0) % Plt Count (150-450) x10^3/uL MPV (7.5-11.0) fL Gran % (36.0-66.0) % Immature Gran % (Auto) (0.00-0.4) % Nucleat RBC Rel Count (0.00-0.1) % Eos # (Auto) (0-0.5) x10^3/uL Immature Gran # (Auto) (0.00-0.03) x10^3u/L Absolute Lymphs (auto) (1.0-4.6) x10^3/uL Absolute Monos (auto) (0.0-1.3) x10^3/uL Absolute Nucleated RBC (0.00-0.01) x10^3u/L Lymphocytes % (24.0-44.0) % Monocytes % (0.0-12.0) % Eosinophils % (0.00-5.0) % Basophils % (0.0-0.4) % Absolute Granulocytes (1.4-6.9) x10^3/uL Basophils # (0-0.4) x10^3/uL pO2/FiO2 Ratio % VBG pH (7.32-7.42) VBG pCO2 at Pat Temp (42-55) mm/Hg VBG pO2 at Pat Temp (25-40) mm/Hg VBG HCO3 (22-28) meq/L VBG O2 Sat (Kiran) (95-100) VBG Base Excess (-2.0-2.0) VBG Hemoglobin VBG Carboxyhemoglobin (0.0-6.9) % T HGB POC Potassium (3.5-5.1) Sodium (137-145) mmol/L Potassium (3.5-5.1) mmol/L Chloride (98-107) mmol/L Carbon Dioxide (22-30) mmol/L Anion Gap (5-15) MEQ/L BUN (7-17) mg/dL Creatinine (0.52-1.04) mg/dL Estimated GFR ML/MIN Glucose (74-106) mg/dL POC Glucometer 581 H* (50 to 500) mg/dL Lactic Acid (0.4-2.0) Calcium (8.4-10.2) mg/dL Magnesium (1.6-2.3) mg/dL Total Bilirubin (0.2-1.3) mg/dL Direct Bilirubin (0.0-0.4) mg/dL AST (14-36) U/L ALT (0-35) U/L Alkaline Phosphatase (38-126) U/L Troponin I < 0.012 (0.000-0.034) ng/mL NT-Pro-B Natriuret Pep (0-900) pg/mL Serum Total Protein (6.3-8.2) g/dL Albumin (3.5-5.0) g/dL Lipase (23-300) U/L Urinalys Dipstick Clnc Urine Color (YELLOW) Urine Appearance (CLEAR) Urine pH (5-6) Ur Specific Parnell (1.005-1.025) POC Urine Protein Conf (Negative) Urine Ketones (NEGATIVE) Urine Nitrite (NEGATIVE) Urine Bilirubin (NEGATIVE) Urine Urobilinogen (0-1) mg/dL Urine Leukocytes (NEGATIVE) Urine WBC (Auto) (0-5) /HPF Urine RBC (Auto) (0-2) /HPF U Epithel Cells (Auto) (FEW) /HPF Urine Bacteria (Auto) (NEGATIVE) /HPF Urine RBC (0-5) Irineo/ul Ur Culture Indicated? Urine Glucose (NEGATIVE) mg/dL Influenza Type A Ag NEGATIVE (NEGATIVE) Influenza Type B Ag NEGATIVE (NEGATIVE) RSV (PCR) NEGATIVE (Negative) SARS-CoV-2 (PCR) NEGATIVE (NEGATIVE) 01/20/22 01/20/22 01/20/22 Range/Units 15:40 15:48 15:52 WBC (4.0-10.5) x10^3/uL RBC (4.1-5.4) x10^6/uL Hgb (12.0-16.0) g/dL Hct (35-47) % MCV (78-100) fL MCH (26-32) pg MCHC (32-36) g/dL RDW (11.5-14.0) % Plt Count (150-450) x10^3/uL MPV (7.5-11.0) fL Gran % (36.0-66.0) % Immature Gran % (Auto) (0.00-0.4) % Nucleat RBC Rel Count (0.00-0.1) % Eos # (Auto) (0-0.5) x10^3/uL Immature Gran # (Auto) (0.00-0.03) x10^3u/L Absolute Lymphs (auto) (1.0-4.6) x10^3/uL Absolute Monos (auto) (0.0-1.3) x10^3/uL Absolute Nucleated RBC (0.00-0.01) x10^3u/L Lymphocytes % (24.0-44.0) % Monocytes % (0.0-12.0) % Eosinophils % (0.00-5.0) % Basophils % (0.0-0.4) % Absolute Granulocytes (1.4-6.9) x10^3/uL Basophils # (0-0.4) x10^3/uL pO2/FiO2 Ratio % VBG pH (7.32-7.42) VBG pCO2 at Pat Temp (42-55) mm/Hg VBG pO2 at Pat Temp (25-40) mm/Hg VBG HCO3 (22-28) meq/L VBG O2 Sat (Kiran) (95-100) VBG Base Excess (-2.0-2.0) VBG Hemoglobin VBG Carboxyhemoglobin (0.0-6.9) % T HGB POC Potassium (3.5-5.1) Sodium 131 L (137-145) mmol/L Potassium 4.8 (3.5-5.1) mmol/L Chloride 102 (98-107) mmol/L Carbon Dioxide 17 L (22-30) mmol/L Anion Gap 16.9 H (5-15) MEQ/L BUN 25 H (7-17) mg/dL Creatinine 0.94 (0.52-1.04) mg/dL Estimated GFR > 60.0 ML/MIN Glucose 471 H (74-106) mg/dL POC Glucometer 382 H (50 to 500) mg/dL Lactic Acid 2.8 H (0.4-2.0) Calcium 9.6 (8.4-10.2) mg/dL Magnesium (1.6-2.3) mg/dL Total Bilirubin 0.40 (0.2-1.3) mg/dL Direct Bilirubin 0.2 (0.0-0.4) mg/dL AST 50 H (14-36) U/L ALT 21 (0-35) U/L Alkaline Phosphatase 148 H (38-126) U/L Troponin I (0.000-0.034) ng/mL NT-Pro-B Natriuret Pep (0-900) pg/mL Serum Total Protein 7.0 (6.3-8.2) g/dL Albumin 4.0 (3.5-5.0) g/dL Lipase (23-300) U/L Urinalys Dipstick Clnc Urine Color (YELLOW) Urine Appearance (CLEAR) Urine pH (5-6) Ur Specific Parnell (1.005-1.025) POC Urine Protein Conf (Negative) Urine Ketones (NEGATIVE) Urine Nitrite (NEGATIVE) Urine Bilirubin (NEGATIVE) Urine Urobilinogen (0-1) mg/dL Urine Leukocytes (NEGATIVE) Urine WBC (Auto) (0-5) /HPF Urine RBC (Auto) (0-2) /HPF U Epithel Cells (Auto) (FEW) /HPF Urine Bacteria (Auto) (NEGATIVE) /HPF Urine RBC (0-5) Irineo/ul Ur Culture Indicated? Urine Glucose (NEGATIVE) mg/dL Influenza Type A Ag (NEGATIVE) Influenza Type B Ag (NEGATIVE) RSV (PCR) (Negative) SARS-CoV-2 (PCR) (NEGATIVE) 01/20/22 01/20/22 01/20/22 Range/Units 17:08 18:14 18:55 WBC (4.0-10.5) x10^3/uL RBC (4.1-5.4) x10^6/uL Hgb (12.0-16.0) g/dL Hct (35-47) % MCV (78-100) fL MCH (26-32) pg MCHC (32-36) g/dL RDW (11.5-14.0) % Plt Count (150-450) x10^3/uL MPV (7.5-11.0) fL Gran % (36.0-66.0) % Immature Gran % (Auto) (0.00-0.4) % Nucleat RBC Rel Count (0.00-0.1) % Eos # (Auto) (0-0.5) x10^3/uL Immature Gran # (Auto) (0.00-0.03) x10^3u/L Absolute Lymphs (auto) (1.0-4.6) x10^3/uL Absolute Monos (auto) (0.0-1.3) x10^3/uL Absolute Nucleated RBC (0.00-0.01) x10^3u/L Lymphocytes % (24.0-44.0) % Monocytes % (0.0-12.0) % Eosinophils % (0.00-5.0) % Basophils % (0.0-0.4) % Absolute Granulocytes (1.4-6.9) x10^3/uL Basophils # (0-0.4) x10^3/uL pO2/FiO2 Ratio % VBG pH (7.32-7.42) VBG pCO2 at Pat Temp (42-55) mm/Hg VBG pO2 at Pat Temp (25-40) mm/Hg VBG HCO3 (22-28) meq/L VBG O2 Sat (Kiran) (95-100) VBG Base Excess (-2.0-2.0) VBG Hemoglobin VBG Carboxyhemoglobin (0.0-6.9) % T HGB POC Potassium (3.5-5.1) Sodium (137-145) mmol/L Potassium (3.5-5.1) mmol/L Chloride (98-107) mmol/L Carbon Dioxide (22-30) mmol/L Anion Gap (5-15) MEQ/L BUN (7-17) mg/dL Creatinine (0.52-1.04) mg/dL Estimated GFR ML/MIN Glucose (74-106) mg/dL POC Glucometer 274 H 242 H (50 to 500) mg/dL Lactic Acid (0.4-2.0) Calcium (8.4-10.2) mg/dL Magnesium (1.6-2.3) mg/dL Total Bilirubin (0.2-1.3) mg/dL Direct Bilirubin (0.0-0.4) mg/dL AST (14-36) U/L ALT (0-35) U/L Alkaline Phosphatase (38-126) U/L Troponin I < 0.012 (0.000-0.034) ng/mL NT-Pro-B Natriuret Pep (0-900) pg/mL Serum Total Protein (6.3-8.2) g/dL Albumin (3.5-5.0) g/dL Lipase (23-300) U/L Urinalys Dipstick Clnc Urine Color (YELLOW) Urine Appearance (CLEAR) Urine pH (5-6) Ur Specific Parnell (1.005-1.025) POC Urine Protein Conf (Negative) Urine Ketones (NEGATIVE) Urine Nitrite (NEGATIVE) Urine Bilirubin (NEGATIVE) Urine Urobilinogen (0-1) mg/dL Urine Leukocytes (NEGATIVE) Urine WBC (Auto) (0-5) /HPF Urine RBC (Auto) (0-2) /HPF U Epithel Cells (Auto) (FEW) /HPF Urine Bacteria (Auto) (NEGATIVE) /HPF Urine RBC (0-5) Irineo/ul Ur Culture Indicated? Urine Glucose (NEGATIVE) mg/dL Influenza Type A Ag (NEGATIVE) Influenza Type B Ag (NEGATIVE) RSV (PCR) (Negative) SARS-CoV-2 (PCR) (NEGATIVE) 01/20/22 01/20/22 01/20/22 Range/Units 18:55 19:28 20:12 WBC (4.0-10.5) x10^3/uL RBC (4.1-5.4) x10^6/uL Hgb (12.0-16.0) g/dL Hct (35-47) % MCV (78-100) fL MCH (26-32) pg MCHC (32-36) g/dL RDW (11.5-14.0) % Plt Count (150-450) x10^3/uL MPV (7.5-11.0) fL Gran % (36.0-66.0) % Immature Gran % (Auto) (0.00-0.4) % Nucleat RBC Rel Count (0.00-0.1) % Eos # (Auto) (0-0.5) x10^3/uL Immature Gran # (Auto) (0.00-0.03) x10^3u/L Absolute Lymphs (auto) (1.0-4.6) x10^3/uL Absolute Monos (auto) (0.0-1.3) x10^3/uL Absolute Nucleated RBC (0.00-0.01) x10^3u/L Lymphocytes % (24.0-44.0) % Monocytes % (0.0-12.0) % Eosinophils % (0.00-5.0) % Basophils % (0.0-0.4) % Absolute Granulocytes (1.4-6.9) x10^3/uL Basophils # (0-0.4) x10^3/uL pO2/FiO2 Ratio % VBG pH (7.32-7.42) VBG pCO2 at Pat Temp (42-55) mm/Hg VBG pO2 at Pat Temp (25-40) mm/Hg VBG HCO3 (22-28) meq/L VBG O2 Sat (Kiran) (95-100) VBG Base Excess (-2.0-2.0) VBG Hemoglobin VBG Carboxyhemoglobin (0.0-6.9) % T HGB POC Potassium (3.5-5.1) Sodium 133 L (137-145) mmol/L Potassium 4.4 (3.5-5.1) mmol/L Chloride 105 (98-107) mmol/L Carbon Dioxide 20 L (22-30) mmol/L Anion Gap 12.8 (5-15) MEQ/L BUN 21 H (7-17) mg/dL Creatinine 0.89 (0.52-1.04) mg/dL Estimated GFR > 60.0 ML/MIN Glucose 280 H (74-106) mg/dL POC Glucometer 269 H 274 H (50 to 500) mg/dL Lactic Acid (0.4-2.0) Calcium 8.9 (8.4-10.2) mg/dL Magnesium (1.6-2.3) mg/dL Total Bilirubin 0.30 (0.2-1.3) mg/dL Direct Bilirubin 0.1 (0.0-0.4) mg/dL AST 22 (14-36) U/L ALT 18 (0-35) U/L Alkaline Phosphatase 128 H (38-126) U/L Troponin I (0.000-0.034) ng/mL NT-Pro-B Natriuret Pep (0-900) pg/mL Serum Total Protein 6.6 (6.3-8.2) g/dL Albumin 3.6 (3.5-5.0) g/dL Lipase (23-300) U/L Urinalys Dipstick Clnc Urine Color (YELLOW) Urine Appearance (CLEAR) Urine pH (5-6) Ur Specific Parnell (1.005-1.025) POC Urine Protein Conf (Negative) Urine Ketones (NEGATIVE) Urine Nitrite (NEGATIVE) Urine Bilirubin (NEGATIVE) Urine Urobilinogen (0-1) mg/dL Urine Leukocytes (NEGATIVE) Urine WBC (Auto) (0-5) /HPF Urine RBC (Auto) (0-2) /HPF U Epithel Cells (Auto) (FEW) /HPF Urine Bacteria (Auto) (NEGATIVE) /HPF Urine RBC (0-5) Irineo/ul Ur Culture Indicated? Urine Glucose (NEGATIVE) mg/dL Influenza Type A Ag (NEGATIVE) Influenza Type B Ag (NEGATIVE) RSV (PCR) (Negative) SARS-CoV-2 (PCR) (NEGATIVE) 01/20/22 01/20/22 01/20/22 Range/Units 21:08 22:12 22:38 WBC (4.0-10.5) x10^3/uL RBC (4.1-5.4) x10^6/uL Hgb (12.0-16.0) g/dL Hct (35-47) % MCV (78-100) fL MCH (26-32) pg MCHC (32-36) g/dL RDW (11.5-14.0) % Plt Count (150-450) x10^3/uL MPV (7.5-11.0) fL Gran % (36.0-66.0) % Immature Gran % (Auto) (0.00-0.4) % Nucleat RBC Rel Count (0.00-0.1) % Eos # (Auto) (0-0.5) x10^3/uL Immature Gran # (Auto) (0.00-0.03) x10^3u/L Absolute Lymphs (auto) (1.0-4.6) x10^3/uL Absolute Monos (auto) (0.0-1.3) x10^3/uL Absolute Nucleated RBC (0.00-0.01) x10^3u/L Lymphocytes % (24.0-44.0) % Monocytes % (0.0-12.0) % Eosinophils % (0.00-5.0) % Basophils % (0.0-0.4) % Absolute Granulocytes (1.4-6.9) x10^3/uL Basophils # (0-0.4) x10^3/uL pO2/FiO2 Ratio % VBG pH (7.32-7.42) VBG pCO2 at Pat Temp (42-55) mm/Hg VBG pO2 at Pat Temp (25-40) mm/Hg VBG HCO3 (22-28) meq/L VBG O2 Sat (Kiran) (95-100) VBG Base Excess (-2.0-2.0) VBG Hemoglobin VBG Carboxyhemoglobin (0.0-6.9) % T HGB POC Potassium (3.5-5.1) Sodium 133 L (137-145) mmol/L Potassium 4.1 (3.5-5.1) mmol/L Chloride 107 (98-107) mmol/L Carbon Dioxide 19 L (22-30) mmol/L Anion Gap 11.7 (5-15) MEQ/L BUN 19 H (7-17) mg/dL Creatinine 0.82 (0.52-1.04) mg/dL Estimated GFR > 60.0 ML/MIN Glucose 209 H (74-106) mg/dL POC Glucometer 255 H 220 H (50 to 500) mg/dL Lactic Acid (0.4-2.0) Calcium 8.8 (8.4-10.2) mg/dL Magnesium (1.6-2.3) mg/dL Total Bilirubin 0.30 (0.2-1.3) mg/dL Direct Bilirubin (0.0-0.4) mg/dL AST 22 (14-36) U/L ALT 17 (0-35) U/L Alkaline Phosphatase 136 H (38-126) U/L Troponin I < 0.012 (0.000-0.034) ng/mL NT-Pro-B Natriuret Pep (0-900) pg/mL Serum Total Protein 6.7 (6.3-8.2) g/dL Albumin 3.6 (3.5-5.0) g/dL Lipase (23-300) U/L Urinalys Dipstick Clnc Urine Color (YELLOW) Urine Appearance (CLEAR) Urine pH (5-6) Ur Specific Parnell (1.005-1.025) POC Urine Protein Conf (Negative) Urine Ketones (NEGATIVE) Urine Nitrite (NEGATIVE) Urine Bilirubin (NEGATIVE) Urine Urobilinogen (0-1) mg/dL Urine Leukocytes (NEGATIVE) Urine WBC (Auto) (0-5) /HPF Urine RBC (Auto) (0-2) /HPF U Epithel Cells (Auto) (FEW) /HPF Urine Bacteria (Auto) (NEGATIVE) /HPF Urine RBC (0-5) Irineo/ul Ur Culture Indicated? Urine Glucose (NEGATIVE) mg/dL Influenza Type A Ag (NEGATIVE) Influenza Type B Ag (NEGATIVE) RSV (PCR) (Negative) SARS-CoV-2 (PCR) (NEGATIVE) 01/21/22 01/21/22 01/21/22 Range/Units 00:05 02:11 03:27 WBC (4.0-10.5) x10^3/uL RBC (4.1-5.4) x10^6/uL Hgb (12.0-16.0) g/dL Hct (35-47) % MCV (78-100) fL MCH (26-32) pg MCHC (32-36) g/dL RDW (11.5-14.0) % Plt Count (150-450) x10^3/uL MPV (7.5-11.0) fL Gran % (36.0-66.0) % Immature Gran % (Auto) (0.00-0.4) % Nucleat RBC Rel Count (0.00-0.1) % Eos # (Auto) (0-0.5) x10^3/uL Immature Gran # (Auto) (0.00-0.03) x10^3u/L Absolute Lymphs (auto) (1.0-4.6) x10^3/uL Absolute Monos (auto) (0.0-1.3) x10^3/uL Absolute Nucleated RBC (0.00-0.01) x10^3u/L Lymphocytes % (24.0-44.0) % Monocytes % (0.0-12.0) % Eosinophils % (0.00-5.0) % Basophils % (0.0-0.4) % Absolute Granulocytes (1.4-6.9) x10^3/uL Basophils # (0-0.4) x10^3/uL pO2/FiO2 Ratio % VBG pH (7.32-7.42) VBG pCO2 at Pat Temp (42-55) mm/Hg VBG pO2 at Pat Temp (25-40) mm/Hg VBG HCO3 (22-28) meq/L VBG O2 Sat (Kiran) (95-100) VBG Base Excess (-2.0-2.0) VBG Hemoglobin VBG Carboxyhemoglobin (0.0-6.9) % T HGB POC Potassium (3.5-5.1) Sodium (137-145) mmol/L Potassium (3.5-5.1) mmol/L Chloride (98-107) mmol/L Carbon Dioxide (22-30) mmol/L Anion Gap (5-15) MEQ/L BUN (7-17) mg/dL Creatinine (0.52-1.04) mg/dL Estimated GFR ML/MIN Glucose (74-106) mg/dL POC Glucometer 208 H 248 H (50 to 500) mg/dL Lactic Acid (0.4-2.0) Calcium (8.4-10.2) mg/dL Magnesium (1.6-2.3) mg/dL Total Bilirubin (0.2-1.3) mg/dL Direct Bilirubin (0.0-0.4) mg/dL AST (14-36) U/L ALT (0-35) U/L Alkaline Phosphatase (38-126) U/L Troponin I < 0.012 (0.000-0.034) ng/mL NT-Pro-B Natriuret Pep (0-900) pg/mL Serum Total Protein (6.3-8.2) g/dL Albumin (3.5-5.0) g/dL Lipase (23-300) U/L Urinalys Dipstick Clnc Urine Color (YELLOW) Urine Appearance (CLEAR) Urine pH (5-6) Ur Specific Parnell (1.005-1.025) POC Urine Protein Conf (Negative) Urine Ketones (NEGATIVE) Urine Nitrite (NEGATIVE) Urine Bilirubin (NEGATIVE) Urine Urobilinogen (0-1) mg/dL Urine Leukocytes (NEGATIVE) Urine WBC (Auto) (0-5) /HPF Urine RBC (Auto) (0-2) /HPF U Epithel Cells (Auto) (FEW) /HPF Urine Bacteria (Auto) (NEGATIVE) /HPF Urine RBC (0-5) Irineo/ul Ur Culture Indicated? Urine Glucose (NEGATIVE) mg/dL Influenza Type A Ag (NEGATIVE) Influenza Type B Ag (NEGATIVE) RSV (PCR) (Negative) SARS-CoV-2 (PCR) (NEGATIVE) 01/21/22 01/21/22 01/21/22 Range/Units 03:27 03:27 05:19 WBC 6.9 (4.0-10.5) x10^3/uL RBC 3.91 L (4.1-5.4) x10^6/uL Hgb 11.5 L (12.0-16.0) g/dL Hct 34.1 L (35-47) % MCV 87.2 (78-100) fL MCH 29.4 (26-32) pg MCHC 33.7 (32-36) g/dL RDW 13.5 (11.5-14.0) % Plt Count 181 (150-450) x10^3/uL MPV 11.1 H (7.5-11.0) fL Gran % 50.8 (36.0-66.0) % Immature Gran % (Auto) 0.1 (0.00-0.4) % Nucleat RBC Rel Count 0.0 (0.00-0.1) % Eos # (Auto) 0.16 (0-0.5) x10^3/uL Immature Gran # (Auto) 0.01 (0.00-0.03) x10^3u/L Absolute Lymphs (auto) 2.66 (1.0-4.6) x10^3/uL Absolute Monos (auto) 0.51 (0.0-1.3) x10^3/uL Absolute Nucleated RBC 0.00 (0.00-0.01) x10^3u/L Lymphocytes % 38.7 (24.0-44.0) % Monocytes % 7.4 (0.0-12.0) % Eosinophils % 2.3 (0.00-5.0) % Basophils % 0.7 (0.0-0.4) % Absolute Granulocytes 3.48 (1.4-6.9) x10^3/uL Basophils # 0.05 (0-0.4) x10^3/uL pO2/FiO2 Ratio % VBG pH (7.32-7.42) VBG pCO2 at Pat Temp (42-55) mm/Hg VBG pO2 at Pat Temp (25-40) mm/Hg VBG HCO3 (22-28) meq/L VBG O2 Sat (Kiran) (95-100) VBG Base Excess (-2.0-2.0) VBG Hemoglobin VBG Carboxyhemoglobin (0.0-6.9) % T HGB POC Potassium (3.5-5.1) Sodium 134 L (137-145) mmol/L Potassium 4.1 (3.5-5.1) mmol/L Chloride 106 (98-107) mmol/L Carbon Dioxide 19 L (22-30) mmol/L Anion Gap 13.0 (5-15) MEQ/L BUN 17 (7-17) mg/dL Creatinine 0.79 (0.52-1.04) mg/dL Estimated GFR > 60.0 ML/MIN Glucose 251 H (74-106) mg/dL POC Glucometer 212 H (50 to 500) mg/dL Lactic Acid (0.4-2.0) Calcium 8.7 (8.4-10.2) mg/dL Magnesium (1.6-2.3) mg/dL Total Bilirubin 0.40 (0.2-1.3) mg/dL Direct Bilirubin (0.0-0.4) mg/dL AST 22 (14-36) U/L ALT 17 (0-35) U/L Alkaline Phosphatase 110 (38-126) U/L Troponin I (0.000-0.034) ng/mL NT-Pro-B Natriuret Pep (0-900) pg/mL Serum Total Protein 6.4 (6.3-8.2) g/dL Albumin 3.5 (3.5-5.0) g/dL Lipase (23-300) U/L Urinalys Dipstick Clnc Urine Color (YELLOW) Urine Appearance (CLEAR) Urine pH (5-6) Ur Specific Parnell (1.005-1.025) POC Urine Protein Conf (Negative) Urine Ketones (NEGATIVE) Urine Nitrite (NEGATIVE) Urine Bilirubin (NEGATIVE) Urine Urobilinogen (0-1) mg/dL Urine Leukocytes (NEGATIVE) Urine WBC (Auto) (0-5) /HPF Urine RBC (Auto) (0-2) /HPF U Epithel Cells (Auto) (FEW) /HPF Urine Bacteria (Auto) (NEGATIVE) /HPF Urine RBC (0-5) Irineo/ul Ur Culture Indicated? Urine Glucose (NEGATIVE) mg/dL Influenza Type A Ag (NEGATIVE) Influenza Type B Ag (NEGATIVE) RSV (PCR) (Negative) SARS-CoV-2 (PCR) (NEGATIVE) 01/21/22 Range/Units 07:24 WBC (4.0-10.5) x10^3/uL RBC (4.1-5.4) x10^6/uL Hgb (12.0-16.0) g/dL Hct (35-47) % MCV (78-100) fL MCH (26-32) pg MCHC (32-36) g/dL RDW (11.5-14.0) % Plt Count (150-450) x10^3/uL MPV (7.5-11.0) fL Gran % (36.0-66.0) % Immature Gran % (Auto) (0.00-0.4) % Nucleat RBC Rel Count (0.00-0.1) % Eos # (Auto) (0-0.5) x10^3/uL Immature Gran # (Auto) (0.00-0.03) x10^3u/L Absolute Lymphs (auto) (1.0-4.6) x10^3/uL Absolute Monos (auto) (0.0-1.3) x10^3/uL Absolute Nucleated RBC (0.00-0.01) x10^3u/L Lymphocytes % (24.0-44.0) % Monocytes % (0.0-12.0) % Eosinophils % (0.00-5.0) % Basophils % (0.0-0.4) % Absolute Granulocytes (1.4-6.9) x10^3/uL Basophils # (0-0.4) x10^3/uL pO2/FiO2 Ratio % VBG pH (7.32-7.42) VBG pCO2 at Pat Temp (42-55) mm/Hg VBG pO2 at Pat Temp (25-40) mm/Hg VBG HCO3 (22-28) meq/L VBG O2 Sat (Kiran) (95-100) VBG Base Excess (-2.0-2.0) VBG Hemoglobin VBG Carboxyhemoglobin (0.0-6.9) % T HGB POC Potassium (3.5-5.1) Sodium (137-145) mmol/L Potassium (3.5-5.1) mmol/L Chloride (98-107) mmol/L Carbon Dioxide (22-30) mmol/L Anion Gap (5-15) MEQ/L BUN (7-17) mg/dL Creatinine (0.52-1.04) mg/dL Estimated GFR ML/MIN Glucose (74-106) mg/dL POC Glucometer 269 H (50 to 500) mg/dL Lactic Acid (0.4-2.0) Calcium (8.4-10.2) mg/dL Magnesium (1.6-2.3) mg/dL Total Bilirubin (0.2-1.3) mg/dL Direct Bilirubin (0.0-0.4) mg/dL AST (14-36) U/L ALT (0-35) U/L Alkaline Phosphatase (38-126) U/L Troponin I (0.000-0.034) ng/mL NT-Pro-B Natriuret Pep (0-900) pg/mL Serum Total Protein (6.3-8.2) g/dL Albumin (3.5-5.0) g/dL Lipase (23-300) U/L Urinalys Dipstick Clnc Urine Color (YELLOW) Urine Appearance (CLEAR) Urine pH (5-6) Ur Specific Parnell (1.005-1.025) POC Urine Protein Conf (Negative) Urine Ketones (NEGATIVE) Urine Nitrite (NEGATIVE) Urine Bilirubin (NEGATIVE) Urine Urobilinogen (0-1) mg/dL Urine Leukocytes (NEGATIVE) Urine WBC (Auto) (0-5) /HPF Urine RBC (Auto) (0-2) /HPF U Epithel Cells (Auto) (FEW) /HPF Urine Bacteria (Auto) (NEGATIVE) /HPF Urine RBC (0-5) Irineo/ul Ur Culture Indicated? Urine Glucose (NEGATIVE) mg/dL Influenza Type A Ag (NEGATIVE) Influenza Type B Ag (NEGATIVE) RSV (PCR) (Negative) SARS-CoV-2 (PCR) (NEGATIVE) Accuchecks Date 01/21/22 Date 01/21/22 Date 01/21/22 Date 01/20/22 Date 01/20/22 Date 01/20/22 Date 01/20/22 Time 05:30 Time 02:00 Time 22:00 Time 21:00 Time 20:00 Time 19:15 - Radiology Impressions Radiology Exams & Impressions: Radiology Procedures Category Date Time Status CHEST 1 VIEW (PORTABLE) Stat Exams 01/20/22 11:55 Completed - Other Procedures and Tests Respiratory Therapy 01/20/22 16:46 Oxygen Nasal Cannula 2 lpm 01/20/22 16:47 Respiratory Therapy Assessment DAILY Assessment/Plan (1) Hyperosmolar hyperglycemic state (HHS) Current Visit: Yes Status: Acute Assessment & Plan: plan to increase her basaglar to 20 units bid, will also add humalog 10 units twice daily with largest meals. 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 ([facility]) (2) Chronic kidney disease Current Visit: Yes Status: Acute Code(s): N18.9 - CHRONIC KIDNEY DISEASE, UNSPECIFIED (3) COPD (chronic obstructive pulmonary disease) Current Visit: Yes Status: Acute Hospital Summary - Vitals & Intake/Output Vital Signs: Vital Signs Temperature 98 F 01/21/22 07:34 Pulse Rate 66 01/21/22 07:34 Respiratory Rate 18 01/21/22 07:34 Blood Pressure 133/72 01/21/22 05:00 O2 Sat by Pulse Oximetry 95 01/21/22 07:34 Intake & Output: Intake & Output 01/18/22 01/19/22 01/20/22 01/21/22 11:59 11:59 11:59 11:59 Intake Total 993 Output Total 3700 Balance -2707 Weight 83.007 kg 86 kg - Lab Result Diagrams: 01/21/22 03:27 01/21/22 03:27 Lab Results-Last 24 Hrs: Lab Results-Last 24 Hours 01/20/22 01/20/22 01/20/22 Range/Units 12:10 12:10 12:10 WBC 6.0 (4.0-10.5) x10^3/uL RBC 4.45 (4.1-5.4) x10^6/uL Hgb 12.8 (12.0-16.0) g/dL Hct 39.0 (35-47) % MCV 87.6 (78-100) fL MCH 28.8 (26-32) pg MCHC 32.8 (32-36) g/dL RDW 13.7 (11.5-14.0) % Plt Count 188 (150-450) x10^3/uL MPV 11.3 H (7.5-11.0) fL Gran % 68.7 H (36.0-66.0) % Immature Gran % (Auto) 0.3 (0.00-0.4) % Nucleat RBC Rel Count 0.0 (0.00-0.1) % Eos # (Auto) 0.13 (0-0.5) x10^3/uL Immature Gran # (Auto) 0.02 (0.00-0.03) x10^3u/L Absolute Lymphs (auto) 1.34 (1.0-4.6) x10^3/uL Absolute Monos (auto) 0.31 (0.0-1.3) x10^3/uL Absolute Nucleated RBC 0.00 (0.00-0.01) x10^3u/L Lymphocytes % 22.4 L (24.0-44.0) % Monocytes % 5.2 (0.0-12.0) % Eosinophils % 2.2 (0.00-5.0) % Basophils % 1.2 (0.0-0.4) % Absolute Granulocytes 4.11 (1.4-6.9) x10^3/uL Basophils # 0.07 (0-0.4) x10^3/uL pO2/FiO2 Ratio 21.0 % VBG pH 7.31 L (7.32-7.42) VBG pCO2 at Pat Temp 50 (42-55) mm/Hg VBG pO2 at Pat Temp 42 H (25-40) mm/Hg VBG HCO3 25.2 (22-28) meq/L VBG O2 Sat (Kiran) 75.0 L (95-100) VBG Base Excess -1.7 (-2.0-2.0) VBG Hemoglobin 13.5 VBG Carboxyhemoglobin 8.6 H* (0.0-6.9) % T HGB POC Potassium 6.1 H* (3.5-5.1) Sodium 125 L (137-145) mmol/L Potassium 5.5 H (3.5-5.1) mmol/L Chloride 93 L (98-107) mmol/L Carbon Dioxide 22 (22-30) mmol/L Anion Gap 16.8 H (5-15) MEQ/L BUN 26 H (7-17) mg/dL Creatinine 1.14 H (0.52-1.04) mg/dL Estimated GFR 51.9 ML/MIN Glucose 811 H* (74-106) mg/dL POC Glucometer (50 to 500) mg/dL Lactic Acid 2.1 H (0.4-2.0) Calcium 10.3 H (8.4-10.2) mg/dL Magnesium 2.4 H (1.6-2.3) mg/dL Total Bilirubin 0.60 (0.2-1.3) mg/dL Direct Bilirubin (0.0-0.4) mg/dL AST 21 (14-36) U/L ALT 19 (0-35) U/L Alkaline Phosphatase 147 H (38-126) U/L Troponin I (0.000-0.034) ng/mL NT-Pro-B Natriuret Pep (0-900) pg/mL Serum Total Protein 7.1 (6.3-8.2) g/dL Albumin 4.1 (3.5-5.0) g/dL Lipase (23-300) U/L Urinalys Dipstick Clnc Urine Color (YELLOW) Urine Appearance (CLEAR) Urine pH (5-6) Ur Specific Parnell (1.005-1.025) POC Urine Protein Conf (Negative) Urine Ketones (NEGATIVE) Urine Nitrite (NEGATIVE) Urine Bilirubin (NEGATIVE) Urine Urobilinogen (0-1) mg/dL Urine Leukocytes (NEGATIVE) Urine WBC (Auto) (0-5) /HPF Urine RBC (Auto) (0-2) /HPF U Epithel Cells (Auto) (FEW) /HPF Urine Bacteria (Auto) (NEGATIVE) /HPF Urine RBC (0-5) Irineo/ul Ur Culture Indicated? Urine Glucose (NEGATIVE) mg/dL Influenza Type A Ag (NEGATIVE) Influenza Type B Ag (NEGATIVE) RSV (PCR) (Negative) SARS-CoV-2 (PCR) (NEGATIVE) 01/20/22 01/20/22 01/20/22 Range/Units 12:10 12:10 13:19 WBC (4.0-10.5) x10^3/uL RBC (4.1-5.4) x10^6/uL Hgb (12.0-16.0) g/dL Hct (35-47) % MCV (78-100) fL MCH (26-32) pg MCHC (32-36) g/dL RDW (11.5-14.0) % Plt Count (150-450) x10^3/uL MPV (7.5-11.0) fL Gran % (36.0-66.0) % Immature Gran % (Auto) (0.00-0.4) % Nucleat RBC Rel Count (0.00-0.1) % Eos # (Auto) (0-0.5) x10^3/uL Immature Gran # (Auto) (0.00-0.03) x10^3u/L Absolute Lymphs (auto) (1.0-4.6) x10^3/uL Absolute Monos (auto) (0.0-1.3) x10^3/uL Absolute Nucleated RBC (0.00-0.01) x10^3u/L Lymphocytes % (24.0-44.0) % Monocytes % (0.0-12.0) % Eosinophils % (0.00-5.0) % Basophils % (0.0-0.4) % Absolute Granulocytes (1.4-6.9) x10^3/uL Basophils # (0-0.4) x10^3/uL pO2/FiO2 Ratio % VBG pH (7.32-7.42) VBG pCO2 at Pat Temp (42-55) mm/Hg VBG pO2 at Pat Temp (25-40) mm/Hg VBG HCO3 (22-28) meq/L VBG O2 Sat (Kiran) (95-100) VBG Base Excess (-2.0-2.0) VBG Hemoglobin VBG Carboxyhemoglobin (0.0-6.9) % T HGB POC Potassium (3.5-5.1) Sodium (137-145) mmol/L Potassium (3.5-5.1) mmol/L Chloride (98-107) mmol/L Carbon Dioxide (22-30) mmol/L Anion Gap (5-15) MEQ/L BUN (7-17) mg/dL Creatinine (0.52-1.04) mg/dL Estimated GFR ML/MIN Glucose (74-106) mg/dL POC Glucometer (50 to 500) mg/dL Lactic Acid (0.4-2.0) Calcium (8.4-10.2) mg/dL Magnesium (1.6-2.3) mg/dL Total Bilirubin (0.2-1.3) mg/dL Direct Bilirubin (0.0-0.4) mg/dL AST (14-36) U/L ALT (0-35) U/L Alkaline Phosphatase (38-126) U/L Troponin I < 0.012 (0.000-0.034) ng/mL NT-Pro-B Natriuret Pep 212 (0-900) pg/mL Serum Total Protein (6.3-8.2) g/dL Albumin (3.5-5.0) g/dL Lipase 156 (23-300) U/L Urinalys Dipstick Clnc MAIN LAB Urine Color YELLOW (YELLOW) Urine Appearance CLEAR (CLEAR) Urine pH 5.5 (5-6) Ur Specific Parnell <=1.005 (1.005-1.025) POC Urine Protein Conf NEGATIVE (Negative) Urine Ketones NEGATIVE (NEGATIVE) Urine Nitrite NEGATIVE (NEGATIVE) Urine Bilirubin NEGATIVE (NEGATIVE) Urine Urobilinogen 0.2 (0-1) mg/dL Urine Leukocytes NEGATIVE (NEGATIVE) Urine WBC (Auto) 0-2 (0-5) /HPF Urine RBC (Auto) 0-2 (0-2) /HPF U Epithel Cells (Auto) NONE (FEW) /HPF Urine Bacteria (Auto) NONE (NEGATIVE) /HPF Urine RBC NEGATIVE (0-5) Irineo/ul Ur Culture Indicated? NO Urine Glucose 500 (NEGATIVE) mg/dL Influenza Type A Ag (NEGATIVE) Influenza Type B Ag (NEGATIVE) RSV (PCR) (Negative) SARS-CoV-2 (PCR) (NEGATIVE) 01/20/22 01/20/22 01/20/22 Range/Units 13:51 14:11 15:23 WBC (4.0-10.5) x10^3/uL RBC (4.1-5.4) x10^6/uL Hgb (12.0-16.0) g/dL Hct (35-47) % MCV (78-100) fL MCH (26-32) pg MCHC (32-36) g/dL RDW (11.5-14.0) % Plt Count (150-450) x10^3/uL MPV (7.5-11.0) fL Gran % (36.0-66.0) % Immature Gran % (Auto) (0.00-0.4) % Nucleat RBC Rel Count (0.00-0.1) % Eos # (Auto) (0-0.5) x10^3/uL Immature Gran # (Auto) (0.00-0.03) x10^3u/L Absolute Lymphs (auto) (1.0-4.6) x10^3/uL Absolute Monos (auto) (0.0-1.3) x10^3/uL Absolute Nucleated RBC (0.00-0.01) x10^3u/L Lymphocytes % (24.0-44.0) % Monocytes % (0.0-12.0) % Eosinophils % (0.00-5.0) % Basophils % (0.0-0.4) % Absolute Granulocytes (1.4-6.9) x10^3/uL Basophils # (0-0.4) x10^3/uL pO2/FiO2 Ratio % VBG pH (7.32-7.42) VBG pCO2 at Pat Temp (42-55) mm/Hg VBG pO2 at Pat Temp (25-40) mm/Hg VBG HCO3 (22-28) meq/L VBG O2 Sat (Kiran) (95-100) VBG Base Excess (-2.0-2.0) VBG Hemoglobin VBG Carboxyhemoglobin (0.0-6.9) % T HGB POC Potassium (3.5-5.1) Sodium (137-145) mmol/L Potassium (3.5-5.1) mmol/L Chloride (98-107) mmol/L Carbon Dioxide (22-30) mmol/L Anion Gap (5-15) MEQ/L BUN (7-17) mg/dL Creatinine (0.52-1.04) mg/dL Estimated GFR ML/MIN Glucose (74-106) mg/dL POC Glucometer 581 H* (50 to 500) mg/dL Lactic Acid (0.4-2.0) Calcium (8.4-10.2) mg/dL Magnesium (1.6-2.3) mg/dL Total Bilirubin (0.2-1.3) mg/dL Direct Bilirubin (0.0-0.4) mg/dL AST (14-36) U/L ALT (0-35) U/L Alkaline Phosphatase (38-126) U/L Troponin I < 0.012 (0.000-0.034) ng/mL NT-Pro-B Natriuret Pep (0-900) pg/mL Serum Total Protein (6.3-8.2) g/dL Albumin (3.5-5.0) g/dL Lipase (23-300) U/L Urinalys Dipstick Clnc Urine Color (YELLOW) Urine Appearance (CLEAR) Urine pH (5-6) Ur Specific Parnell (1.005-1.025) POC Urine Protein Conf (Negative) Urine Ketones (NEGATIVE) Urine Nitrite (NEGATIVE) Urine Bilirubin (NEGATIVE) Urine Urobilinogen (0-1) mg/dL Urine Leukocytes (NEGATIVE) Urine WBC (Auto) (0-5) /HPF Urine RBC (Auto) (0-2) /HPF U Epithel Cells (Auto) (FEW) /HPF Urine Bacteria (Auto) (NEGATIVE) /HPF Urine RBC (0-5) Irineo/ul Ur Culture Indicated? Urine Glucose (NEGATIVE) mg/dL Influenza Type A Ag NEGATIVE (NEGATIVE) Influenza Type B Ag NEGATIVE (NEGATIVE) RSV (PCR) NEGATIVE (Negative) SARS-CoV-2 (PCR) NEGATIVE (NEGATIVE) 01/20/22 01/20/22 01/20/22 Range/Units 15:40 15:48 15:52 WBC (4.0-10.5) x10^3/uL RBC (4.1-5.4) x10^6/uL Hgb (12.0-16.0) g/dL Hct (35-47) % MCV (78-100) fL MCH (26-32) pg MCHC (32-36) g/dL RDW (11.5-14.0) % Plt Count (150-450) x10^3/uL MPV (7.5-11.0) fL Gran % (36.0-66.0) % Immature Gran % (Auto) (0.00-0.4) % Nucleat RBC Rel Count (0.00-0.1) % Eos # (Auto) (0-0.5) x10^3/uL Immature Gran # (Auto) (0.00-0.03) x10^3u/L Absolute Lymphs (auto) (1.0-4.6) x10^3/uL Absolute Monos (auto) (0.0-1.3) x10^3/uL Absolute Nucleated RBC (0.00-0.01) x10^3u/L Lymphocytes % (24.0-44.0) % Monocytes % (0.0-12.0) % Eosinophils % (0.00-5.0) % Basophils % (0.0-0.4) % Absolute Granulocytes (1.4-6.9) x10^3/uL Basophils # (0-0.4) x10^3/uL pO2/FiO2 Ratio % VBG pH (7.32-7.42) VBG pCO2 at Pat Temp (42-55) mm/Hg VBG pO2 at Pat Temp (25-40) mm/Hg VBG HCO3 (22-28) meq/L VBG O2 Sat (Kiran) (95-100) VBG Base Excess (-2.0-2.0) VBG Hemoglobin VBG Carboxyhemoglobin (0.0-6.9) % T HGB POC Potassium (3.5-5.1) Sodium 131 L (137-145) mmol/L Potassium 4.8 (3.5-5.1) mmol/L Chloride 102 (98-107) mmol/L Carbon Dioxide 17 L (22-30) mmol/L Anion Gap 16.9 H (5-15) MEQ/L BUN 25 H (7-17) mg/dL Creatinine 0.94 (0.52-1.04) mg/dL Estimated GFR > 60.0 ML/MIN Glucose 471 H (74-106) mg/dL POC Glucometer 382 H (50 to 500) mg/dL Lactic Acid 2.8 H (0.4-2.0) Calcium 9.6 (8.4-10.2) mg/dL Magnesium (1.6-2.3) mg/dL Total Bilirubin 0.40 (0.2-1.3) mg/dL Direct Bilirubin 0.2 (0.0-0.4) mg/dL AST 50 H (14-36) U/L ALT 21 (0-35) U/L Alkaline Phosphatase 148 H (38-126) U/L Troponin I (0.000-0.034) ng/mL NT-Pro-B Natriuret Pep (0-900) pg/mL Serum Total Protein 7.0 (6.3-8.2) g/dL Albumin 4.0 (3.5-5.0) g/dL Lipase (23-300) U/L Urinalys Dipstick Clnc Urine Color (YELLOW) Urine Appearance (CLEAR) Urine pH (5-6) Ur Specific Parnell (1.005-1.025) POC Urine Protein Conf (Negative) Urine Ketones (NEGATIVE) Urine Nitrite (NEGATIVE) Urine Bilirubin (NEGATIVE) Urine Urobilinogen (0-1) mg/dL Urine Leukocytes (NEGATIVE) Urine WBC (Auto) (0-5) /HPF Urine RBC (Auto) (0-2) /HPF U Epithel Cells (Auto) (FEW) /HPF Urine Bacteria (Auto) (NEGATIVE) /HPF Urine RBC (0-5) Irineo/ul Ur Culture Indicated? Urine Glucose (NEGATIVE) mg/dL Influenza Type A Ag (NEGATIVE) Influenza Type B Ag (NEGATIVE) RSV (PCR) (Negative) SARS-CoV-2 (PCR) (NEGATIVE) 01/20/22 01/20/22 01/20/22 Range/Units 17:08 18:14 18:55 WBC (4.0-10.5) x10^3/uL RBC (4.1-5.4) x10^6/uL Hgb (12.0-16.0) g/dL Hct (35-47) % MCV (78-100) fL MCH (26-32) pg MCHC (32-36) g/dL RDW (11.5-14.0) % Plt Count (150-450) x10^3/uL MPV (7.5-11.0) fL Gran % (36.0-66.0) % Immature Gran % (Auto) (0.00-0.4) % Nucleat RBC Rel Count (0.00-0.1) % Eos # (Auto) (0-0.5) x10^3/uL Immature Gran # (Auto) (0.00-0.03) x10^3u/L Absolute Lymphs (auto) (1.0-4.6) x10^3/uL Absolute Monos (auto) (0.0-1.3) x10^3/uL Absolute Nucleated RBC (0.00-0.01) x10^3u/L Lymphocytes % (24.0-44.0) % Monocytes % (0.0-12.0) % Eosinophils % (0.00-5.0) % Basophils % (0.0-0.4) % Absolute Granulocytes (1.4-6.9) x10^3/uL Basophils # (0-0.4) x10^3/uL pO2/FiO2 Ratio % VBG pH (7.32-7.42) VBG pCO2 at Pat Temp (42-55) mm/Hg VBG pO2 at Pat Temp (25-40) mm/Hg VBG HCO3 (22-28) meq/L VBG O2 Sat (Kiran) (95-100) VBG Base Excess (-2.0-2.0) VBG Hemoglobin VBG Carboxyhemoglobin (0.0-6.9) % T HGB POC Potassium (3.5-5.1) Sodium (137-145) mmol/L Potassium (3.5-5.1) mmol/L Chloride (98-107) mmol/L Carbon Dioxide (22-30) mmol/L Anion Gap (5-15) MEQ/L BUN (7-17) mg/dL Creatinine (0.52-1.04) mg/dL Estimated GFR ML/MIN Glucose (74-106) mg/dL POC Glucometer 274 H 242 H (50 to 500) mg/dL Lactic Acid (0.4-2.0) Calcium (8.4-10.2) mg/dL Magnesium (1.6-2.3) mg/dL Total Bilirubin (0.2-1.3) mg/dL Direct Bilirubin (0.0-0.4) mg/dL AST (14-36) U/L ALT (0-35) U/L Alkaline Phosphatase (38-126) U/L Troponin I < 0.012 (0.000-0.034) ng/mL NT-Pro-B Natriuret Pep (0-900) pg/mL Serum Total Protein (6.3-8.2) g/dL Albumin (3.5-5.0) g/dL Lipase (23-300) U/L Urinalys Dipstick Clnc Urine Color (YELLOW) Urine Appearance (CLEAR) Urine pH (5-6) Ur Specific Parnell (1.005-1.025) POC Urine Protein Conf (Negative) Urine Ketones (NEGATIVE) Urine Nitrite (NEGATIVE) Urine Bilirubin (NEGATIVE) Urine Urobilinogen (0-1) mg/dL Urine Leukocytes (NEGATIVE) Urine WBC (Auto) (0-5) /HPF Urine RBC (Auto) (0-2) /HPF U Epithel Cells (Auto) (FEW) /HPF Urine Bacteria (Auto) (NEGATIVE) /HPF Urine RBC (0-5) Irineo/ul Ur Culture Indicated? Urine Glucose (NEGATIVE) mg/dL Influenza Type A Ag (NEGATIVE) Influenza Type B Ag (NEGATIVE) RSV (PCR) (Negative) SARS-CoV-2 (PCR) (NEGATIVE) 01/20/22 01/20/22 01/20/22 Range/Units 18:55 19:28 20:12 WBC (4.0-10.5) x10^3/uL RBC (4.1-5.4) x10^6/uL Hgb (12.0-16.0) g/dL Hct (35-47) % MCV (78-100) fL MCH (26-32) pg MCHC (32-36) g/dL RDW (11.5-14.0) % Plt Count (150-450) x10^3/uL MPV (7.5-11.0) fL Gran % (36.0-66.0) % Immature Gran % (Auto) (0.00-0.4) % Nucleat RBC Rel Count (0.00-0.1) % Eos # (Auto) (0-0.5) x10^3/uL Immature Gran # (Auto) (0.00-0.03) x10^3u/L Absolute Lymphs (auto) (1.0-4.6) x10^3/uL Absolute Monos (auto) (0.0-1.3) x10^3/uL Absolute Nucleated RBC (0.00-0.01) x10^3u/L Lymphocytes % (24.0-44.0) % Monocytes % (0.0-12.0) % Eosinophils % (0.00-5.0) % Basophils % (0.0-0.4) % Absolute Granulocytes (1.4-6.9) x10^3/uL Basophils # (0-0.4) x10^3/uL pO2/FiO2 Ratio % VBG pH (7.32-7.42) VBG pCO2 at Pat Temp (42-55) mm/Hg VBG pO2 at Pat Temp (25-40) mm/Hg VBG HCO3 (22-28) meq/L VBG O2 Sat (Kiran) (95-100) VBG Base Excess (-2.0-2.0) VBG Hemoglobin VBG Carboxyhemoglobin (0.0-6.9) % T HGB POC Potassium (3.5-5.1) Sodium 133 L (137-145) mmol/L Potassium 4.4 (3.5-5.1) mmol/L Chloride 105 (98-107) mmol/L Carbon Dioxide 20 L (22-30) mmol/L Anion Gap 12.8 (5-15) MEQ/L BUN 21 H (7-17) mg/dL Creatinine 0.89 (0.52-1.04) mg/dL Estimated GFR > 60.0 ML/MIN Glucose 280 H (74-106) mg/dL POC Glucometer 269 H 274 H (50 to 500) mg/dL Lactic Acid (0.4-2.0) Calcium 8.9 (8.4-10.2) mg/dL Magnesium (1.6-2.3) mg/dL Total Bilirubin 0.30 (0.2-1.3) mg/dL Direct Bilirubin 0.1 (0.0-0.4) mg/dL AST 22 (14-36) U/L ALT 18 (0-35) U/L Alkaline Phosphatase 128 H (38-126) U/L Troponin I (0.000-0.034) ng/mL NT-Pro-B Natriuret Pep (0-900) pg/mL Serum Total Protein 6.6 (6.3-8.2) g/dL Albumin 3.6 (3.5-5.0) g/dL Lipase (23-300) U/L Urinalys Dipstick Clnc Urine Color (YELLOW) Urine Appearance (CLEAR) Urine pH (5-6) Ur Specific Parnell (1.005-1.025) POC Urine Protein Conf (Negative) Urine Ketones (NEGATIVE) Urine Nitrite (NEGATIVE) Urine Bilirubin (NEGATIVE) Urine Urobilinogen (0-1) mg/dL Urine Leukocytes (NEGATIVE) Urine WBC (Auto) (0-5) /HPF Urine RBC (Auto) (0-2) /HPF U Epithel Cells (Auto) (FEW) /HPF Urine Bacteria (Auto) (NEGATIVE) /HPF Urine RBC (0-5) Irineo/ul Ur Culture Indicated? Urine Glucose (NEGATIVE) mg/dL Influenza Type A Ag (NEGATIVE) Influenza Type B Ag (NEGATIVE) RSV (PCR) (Negative) SARS-CoV-2 (PCR) (NEGATIVE) 01/20/22 01/20/22 01/20/22 Range/Units 21:08 22:12 22:38 WBC (4.0-10.5) x10^3/uL RBC (4.1-5.4) x10^6/uL Hgb (12.0-16.0) g/dL Hct (35-47) % MCV (78-100) fL MCH (26-32) pg MCHC (32-36) g/dL RDW (11.5-14.0) % Plt Count (150-450) x10^3/uL MPV (7.5-11.0) fL Gran % (36.0-66.0) % Immature Gran % (Auto) (0.00-0.4) % Nucleat RBC Rel Count (0.00-0.1) % Eos # (Auto) (0-0.5) x10^3/uL Immature Gran # (Auto) (0.00-0.03) x10^3u/L Absolute Lymphs (auto) (1.0-4.6) x10^3/uL Absolute Monos (auto) (0.0-1.3) x10^3/uL Absolute Nucleated RBC (0.00-0.01) x10^3u/L Lymphocytes % (24.0-44.0) % Monocytes % (0.0-12.0) % Eosinophils % (0.00-5.0) % Basophils % (0.0-0.4) % Absolute Granulocytes (1.4-6.9) x10^3/uL Basophils # (0-0.4) x10^3/uL pO2/FiO2 Ratio % VBG pH (7.32-7.42) VBG pCO2 at Pat Temp (42-55) mm/Hg VBG pO2 at Pat Temp (25-40) mm/Hg VBG HCO3 (22-28) meq/L VBG O2 Sat (Kiran) (95-100) VBG Base Excess (-2.0-2.0) VBG Hemoglobin VBG Carboxyhemoglobin (0.0-6.9) % T HGB POC Potassium (3.5-5.1) Sodium 133 L (137-145) mmol/L Potassium 4.1 (3.5-5.1) mmol/L Chloride 107 (98-107) mmol/L Carbon Dioxide 19 L (22-30) mmol/L Anion Gap 11.7 (5-15) MEQ/L BUN 19 H (7-17) mg/dL Creatinine 0.82 (0.52-1.04) mg/dL Estimated GFR > 60.0 ML/MIN Glucose 209 H (74-106) mg/dL POC Glucometer 255 H 220 H (50 to 500) mg/dL Lactic Acid (0.4-2.0) Calcium 8.8 (8.4-10.2) mg/dL Magnesium (1.6-2.3) mg/dL Total Bilirubin 0.30 (0.2-1.3) mg/dL Direct Bilirubin (0.0-0.4) mg/dL AST 22 (14-36) U/L ALT 17 (0-35) U/L Alkaline Phosphatase 136 H (38-126) U/L Troponin I < 0.012 (0.000-0.034) ng/mL NT-Pro-B Natriuret Pep (0-900) pg/mL Serum Total Protein 6.7 (6.3-8.2) g/dL Albumin 3.6 (3.5-5.0) g/dL Lipase (23-300) U/L Urinalys Dipstick Clnc Urine Color (YELLOW) Urine Appearance (CLEAR) Urine pH (5-6) Ur Specific Parnell (1.005-1.025) POC Urine Protein Conf (Negative) Urine Ketones (NEGATIVE) Urine Nitrite (NEGATIVE) Urine Bilirubin (NEGATIVE) Urine Urobilinogen (0-1) mg/dL Urine Leukocytes (NEGATIVE) Urine WBC (Auto) (0-5) /HPF Urine RBC (Auto) (0-2) /HPF U Epithel Cells (Auto) (FEW) /HPF Urine Bacteria (Auto) (NEGATIVE) /HPF Urine RBC (0-5) Irineo/ul Ur Culture Indicated? Urine Glucose (NEGATIVE) mg/dL Influenza Type A Ag (NEGATIVE) Influenza Type B Ag (NEGATIVE) RSV (PCR) (Negative) SARS-CoV-2 (PCR) (NEGATIVE) 01/21/22 01/21/22 01/21/22 Range/Units 00:05 02:11 03:27 WBC (4.0-10.5) x10^3/uL RBC (4.1-5.4) x10^6/uL Hgb (12.0-16.0) g/dL Hct (35-47) % MCV (78-100) fL MCH (26-32) pg MCHC (32-36) g/dL RDW (11.5-14.0) % Plt Count (150-450) x10^3/uL MPV (7.5-11.0) fL Gran % (36.0-66.0) % Immature Gran % (Auto) (0.00-0.4) % Nucleat RBC Rel Count (0.00-0.1) % Eos # (Auto) (0-0.5) x10^3/uL Immature Gran # (Auto) (0.00-0.03) x10^3u/L Absolute Lymphs (auto) (1.0-4.6) x10^3/uL Absolute Monos (auto) (0.0-1.3) x10^3/uL Absolute Nucleated RBC (0.00-0.01) x10^3u/L Lymphocytes % (24.0-44.0) % Monocytes % (0.0-12.0) % Eosinophils % (0.00-5.0) % Basophils % (0.0-0.4) % Absolute Granulocytes (1.4-6.9) x10^3/uL Basophils # (0-0.4) x10^3/uL pO2/FiO2 Ratio % VBG pH (7.32-7.42) VBG pCO2 at Pat Temp (42-55) mm/Hg VBG pO2 at Pat Temp (25-40) mm/Hg VBG HCO3 (22-28) meq/L VBG O2 Sat (Kiran) (95-100) VBG Base Excess (-2.0-2.0) VBG Hemoglobin VBG Carboxyhemoglobin (0.0-6.9) % T HGB POC Potassium (3.5-5.1) Sodium (137-145) mmol/L Potassium (3.5-5.1) mmol/L Chloride (98-107) mmol/L Carbon Dioxide (22-30) mmol/L Anion Gap (5-15) MEQ/L BUN (7-17) mg/dL Creatinine (0.52-1.04) mg/dL Estimated GFR ML/MIN Glucose (74-106) mg/dL POC Glucometer 208 H 248 H (50 to 500) mg/dL Lactic Acid (0.4-2.0) Calcium (8.4-10.2) mg/dL Magnesium (1.6-2.3) mg/dL Total Bilirubin (0.2-1.3) mg/dL Direct Bilirubin (0.0-0.4) mg/dL AST (14-36) U/L ALT (0-35) U/L Alkaline Phosphatase (38-126) U/L Troponin I < 0.012 (0.000-0.034) ng/mL NT-Pro-B Natriuret Pep (0-900) pg/mL Serum Total Protein (6.3-8.2) g/dL Albumin (3.5-5.0) g/dL Lipase (23-300) U/L Urinalys Dipstick Clnc Urine Color (YELLOW) Urine Appearance (CLEAR) Urine pH (5-6) Ur Specific Parnell (1.005-1.025) POC Urine Protein Conf (Negative) Urine Ketones (NEGATIVE) Urine Nitrite (NEGATIVE) Urine Bilirubin (NEGATIVE) Urine Urobilinogen (0-1) mg/dL Urine Leukocytes (NEGATIVE) Urine WBC (Auto) (0-5) /HPF Urine RBC (Auto) (0-2) /HPF U Epithel Cells (Auto) (FEW) /HPF Urine Bacteria (Auto) (NEGATIVE) /HPF Urine RBC (0-5) Irineo/ul Ur Culture Indicated? Urine Glucose (NEGATIVE) mg/dL Influenza Type A Ag (NEGATIVE) Influenza Type B Ag (NEGATIVE) RSV (PCR) (Negative) SARS-CoV-2 (PCR) (NEGATIVE) 01/21/22 01/21/22 01/21/22 Range/Units 03:27 03:27 05:19 WBC 6.9 (4.0-10.5) x10^3/uL RBC 3.91 L (4.1-5.4) x10^6/uL Hgb 11.5 L (12.0-16.0) g/dL Hct 34.1 L (35-47) % MCV 87.2 (78-100) fL MCH 29.4 (26-32) pg MCHC 33.7 (32-36) g/dL RDW 13.5 (11.5-14.0) % Plt Count 181 (150-450) x10^3/uL MPV 11.1 H (7.5-11.0) fL Gran % 50.8 (36.0-66.0) % Immature Gran % (Auto) 0.1 (0.00-0.4) % Nucleat RBC Rel Count 0.0 (0.00-0.1) % Eos # (Auto) 0.16 (0-0.5) x10^3/uL Immature Gran # (Auto) 0.01 (0.00-0.03) x10^3u/L Absolute Lymphs (auto) 2.66 (1.0-4.6) x10^3/uL Absolute Monos (auto) 0.51 (0.0-1.3) x10^3/uL Absolute Nucleated RBC 0.00 (0.00-0.01) x10^3u/L Lymphocytes % 38.7 (24.0-44.0) % Monocytes % 7.4 (0.0-12.0) % Eosinophils % 2.3 (0.00-5.0) % Basophils % 0.7 (0.0-0.4) % Absolute Granulocytes 3.48 (1.4-6.9) x10^3/uL Basophils # 0.05 (0-0.4) x10^3/uL pO2/FiO2 Ratio % VBG pH (7.32-7.42) VBG pCO2 at Pat Temp (42-55) mm/Hg VBG pO2 at Pat Temp (25-40) mm/Hg VBG HCO3 (22-28) meq/L VBG O2 Sat (Kiran) (95-100) VBG Base Excess (-2.0-2.0) VBG Hemoglobin VBG Carboxyhemoglobin (0.0-6.9) % T HGB POC Potassium (3.5-5.1) Sodium 134 L (137-145) mmol/L Potassium 4.1 (3.5-5.1) mmol/L Chloride 106 (98-107) mmol/L Carbon Dioxide 19 L (22-30) mmol/L Anion Gap 13.0 (5-15) MEQ/L BUN 17 (7-17) mg/dL Creatinine 0.79 (0.52-1.04) mg/dL Estimated GFR > 60.0 ML/MIN Glucose 251 H (74-106) mg/dL POC Glucometer 212 H (50 to 500) mg/dL Lactic Acid (0.4-2.0) Calcium 8.7 (8.4-10.2) mg/dL Magnesium (1.6-2.3) mg/dL Total Bilirubin 0.40 (0.2-1.3) mg/dL Direct Bilirubin (0.0-0.4) mg/dL AST 22 (14-36) U/L ALT 17 (0-35) U/L Alkaline Phosphatase 110 (38-126) U/L Troponin I (0.000-0.034) ng/mL NT-Pro-B Natriuret Pep (0-900) pg/mL Serum Total Protein 6.4 (6.3-8.2) g/dL Albumin 3.5 (3.5-5.0) g/dL Lipase (23-300) U/L Urinalys Dipstick Clnc Urine Color (YELLOW) Urine Appearance (CLEAR) Urine pH (5-6) Ur Specific Parnell (1.005-1.025) POC Urine Protein Conf (Negative) Urine Ketones (NEGATIVE) Urine Nitrite (NEGATIVE) Urine Bilirubin (NEGATIVE) Urine Urobilinogen (0-1) mg/dL Urine Leukocytes (NEGATIVE) Urine WBC (Auto) (0-5) /HPF Urine RBC (Auto) (0-2) /HPF U Epithel Cells (Auto) (FEW) /HPF Urine Bacteria (Auto) (NEGATIVE) /HPF Urine RBC (0-5) Irineo/ul Ur Culture Indicated? Urine Glucose (NEGATIVE) mg/dL Influenza Type A Ag (NEGATIVE) Influenza Type B Ag (NEGATIVE) RSV (PCR) (Negative) SARS-CoV-2 (PCR) (NEGATIVE) 01/21/22 Range/Units 07:24 WBC (4.0-10.5) x10^3/uL RBC (4.1-5.4) x10^6/uL Hgb (12.0-16.0) g/dL Hct (35-47) % MCV (78-100) fL MCH (26-32) pg MCHC (32-36) g/dL RDW (11.5-14.0) % Plt Count (150-450) x10^3/uL MPV (7.5-11.0) fL Gran % (36.0-66.0) % Immature Gran % (Auto) (0.00-0.4) % Nucleat RBC Rel Count (0.00-0.1) % Eos # (Auto) (0-0.5) x10^3/uL Immature Gran # (Auto) (0.00-0.03) x10^3u/L Absolute Lymphs (auto) (1.0-4.6) x10^3/uL Absolute Monos (auto) (0.0-1.3) x10^3/uL Absolute Nucleated RBC (0.00-0.01) x10^3u/L Lymphocytes % (24.0-44.0) % Monocytes % (0.0-12.0) % Eosinophils % (0.00-5.0) % Basophils % (0.0-0.4) % Absolute Granulocytes (1.4-6.9) x10^3/uL Basophils # (0-0.4) x10^3/uL pO2/FiO2 Ratio % VBG pH (7.32-7.42) VBG pCO2 at Pat Temp (42-55) mm/Hg VBG pO2 at Pat Temp (25-40) mm/Hg VBG HCO3 (22-28) meq/L VBG O2 Sat (Kiran) (95-100) VBG Base Excess (-2.0-2.0) VBG Hemoglobin VBG Carboxyhemoglobin (0.0-6.9) % T HGB POC Potassium (3.5-5.1) Sodium (137-145) mmol/L Potassium (3.5-5.1) mmol/L Chloride (98-107) mmol/L Carbon Dioxide (22-30) mmol/L Anion Gap (5-15) MEQ/L BUN (7-17) mg/dL Creatinine (0.52-1.04) mg/dL Estimated GFR ML/MIN Glucose (74-106) mg/dL POC Glucometer 269 H (50 to 500) mg/dL Lactic Acid (0.4-2.0) Calcium (8.4-10.2) mg/dL Magnesium (1.6-2.3) mg/dL Total Bilirubin (0.2-1.3) mg/dL Direct Bilirubin (0.0-0.4) mg/dL AST (14-36) U/L ALT (0-35) U/L Alkaline Phosphatase (38-126) U/L Troponin I (0.000-0.034) ng/mL NT-Pro-B Natriuret Pep (0-900) pg/mL Serum Total Protein (6.3-8.2) g/dL Albumin (3.5-5.0) g/dL Lipase (23-300) U/L Urinalys Dipstick Clnc Urine Color (YELLOW) Urine Appearance (CLEAR) Urine pH (5-6) Ur Specific Parnell (1.005-1.025) POC Urine Protein Conf (Negative) Urine Ketones (NEGATIVE) Urine Nitrite (NEGATIVE) Urine Bilirubin (NEGATIVE) Urine Urobilinogen (0-1) mg/dL Urine Leukocytes (NEGATIVE) Urine WBC (Auto) (0-5) /HPF Urine RBC (Auto) (0-2) /HPF U Epithel Cells (Auto) (FEW) /HPF Urine Bacteria (Auto) (NEGATIVE) /HPF Urine RBC (0-5) Irineo/ul Ur Culture Indicated? Urine Glucose (NEGATIVE) mg/dL Influenza Type A Ag (NEGATIVE) Influenza Type B Ag (NEGATIVE) RSV (PCR) (Negative) SARS-CoV-2 (PCR) (NEGATIVE) Micro Results-Entire Visit: Accuchecks Date 01/21/22 Date 01/21/22 Date 01/21/22 Date 01/20/22 Date 01/20/22 Date 01/20/22 Date 01/20/22 Time 05:30 Time 02:00 Time 22:00 Time 21:00 Time 20:00 Time 19:15 - Radiology Exams Ordered Rad Exams-Entire Visit: Radiology Procedures Category Date Time Status CHEST 1 VIEW (PORTABLE) Stat Exams 01/20/22 11:55 Completed - Procedures and Test Procedures and Tests throughout Hospitalization: Therapy Orders & Screens 01/20/22 16:46 Oxygen Nasal Cannula 2 lpm Comment: 2L AT [facility] Diagnosis: [facility] 01/20/22 16:47 Respiratory Therapy Assessment DAILY Comment: Diagnosis: [facility] - Discharge Disposition: Home, Self-Care Condition: Stable Prescriptions: New Pen Needle, Diabetic [1St Tier Unifine Pentips Plus] 1 each SQ QID #100 units Insulin Lispro [Insulin Lispro Kwikpen U-100] 10 unit SQ BIDAC #2 packet Continue PANTOPRAZOLE 40 mg Tablet [Protonix 40MG Tablet] 40 mg PO DAILY Amitriptyline HCl 25 mg [Amitriptyline 25 mg Tablet] 50 mg PO HS Fluticasone/Vilanterol [Breo Ellipta 100-25 Mcg INH] 1 each IH DAILY Losartan Potassium 50 mg [Cozaar 50 MG] 50 mg PO DAILY Gabapentin [Neurontin ] 300 mg PO TID Metoprolol Tartrate [Lopressor] 50 mg PO BID Atorvastatin Calcium [Lipitor] 80 mg PO DAILY Ibuprofen 200 mg PO Q4H PRN PRN Reason: Pain Furosemide 20 mg [Lasix 20 mg] 20 mg PO DAILY Promethazine HCl 25 mg PO Q4H PRN PRN Reason: Nausea Loratadine 10 mg [Claritin 10 mg] 10 mg PO DAILY Albuterol Sulfate [Albuterol Sulfate Hfa] 7 gm IH Q6HPRN PRN PRN Reason: Shortness Of Breath/Wheezing Clopidogrel Bisulfate [Clopidogrel] 75 mg PO DAILY #0 Cyclobenzaprine HCl 5 mg PO HS Magnesium Oxide 400 mg [Mag-Ox 400] 400 mg PO DAILY Dapagliflozin Propanediol [Farxiga] 5 mg PO DAILY Changed Insulin Glargine,Hum.rec.anlog [Supriya Lopez U-100] 20 unit SQ BID #4 udpkt Instructions: Type 1 Diabetes Follow up with: SHERIF DUKES [Primary Care Provider] - 01/27/22 10:00 am
[2022-01-21] MEDS: MAG-OX 400 PO SCH (08:55)
[2022-01-21] MEDS: ZOCOR 20MG PO SCH (08:55)
[2022-01-21] MEDS: PLAVIX Tablet PO SCH (08:56)
[2022-01-21] MEDS: CLARITIN 10 MG PO SCH (08:56)
[2022-01-21] MEDS: Lopressor 50 MG PO SCH (08:56)
[2022-01-21] MEDS: NEURONTIN PO SCH (08:56)
[2022-01-21] MEDS: Cozaar 50 MG PO SCH (08:56)
[2022-01-21] MEDS: Protonix 40MG Tablet PO SCH (08:56)
[2022-01-21] MEDS: Lantus Insulin SQ SCH (08:57)
[2022-01-21] MEDS: Nicoderm CQ 21 MG TOP SCH (09:05)
[2022-01-21] MEDS ORDERED: PROTONIX 40 MG IV IV SCH (10:00)
[2022-01-21] MEDS ORDERED: NON-FORMULARY ITEM (Insulin Glargine,Hum.Rec.Anlog [Basaglar Kwikpen U-100] 100 UNIT/ML In SQ SCH (10:00)
[2022-01-21] MEDS ORDERED: Lantus Insulin SQ SCH (10:00)
[2022-01-21] MEDS ORDERED: NON-FORMULARY ITEM (Atorvastatin Calcium [Lipitor] 80 MG Tablet) PO SCH (10:00)
[2022-01-21 12:10] VITALS: BP 107/70; PULSE 68; O2SAT 93
== END 2022-01-21 12:29 | disposition home or self-care (01) ==
LOC: ED 11:14 → ICU 15:02
PROVIDERS: ADMIT Family Medicine; ATTEND Family Medicine
DX: E11.00 Type 2 diabetes mellitus with hyperosmolarity without nonketotic hyperglycemic-hyperosmolar coma (NKHHC) (principal); J44.9 Chronic obstructive pulmonary disease, unspecified; I49.9 Cardiac arrhythmia, unspecified; I12.9 Hypertensive chronic kidney disease with stage 1 through stage 4 chronic kidney disease, or unspecified chronic kidney disease; E11.22 Type 2 diabetes mellitus with diabetic chronic kidney disease; E11.65 Type 2 diabetes mellitus with hyperglycemia; N18.9 Chronic kidney disease, unspecified; Z72.0 Tobacco use; Z79.899 Other long term (current) drug therapy; Z20.828 Contact with and (suspected) exposure to other viral communicable diseases
CPT/HCPCS: 0241U; 36000; 36415; 71045; 80048; 80053; 80076; 81015; 82805; 82947; 83605; 83690; 83735; 83880; 84484; 85025; 93005; 93041; 94640; 96360; 99285; 93268; 94762; G0378; J1817; J2270; A9270-GY

== ENCOUNTER 2022-07-02 12:10 | Emergency (ER) | payer OTHER ==
[2022-07-02] MEDS ORDERED: Norflex 60 MG/2 ML IM ONE (12:41)
[2022-07-02] MEDS ORDERED: TORAdol 30 mg Injection IM ONE (12:41)
--- NOTE | 2022-07-02 12:42 | ERPHSYRPT ---
- History of Present Illness Time Seen by Provider: 07/02/22 12:25 Patient Subjective Stated Complaint: pt here for back hurting with bilateral rib pain for 4 weeks now, pt has chronic back pain Triage Nursing Assessment: pt alert, walked in, resp easy, anxious, skin w/d/p. able to get undressed Physician History: 62 years old female presented in the ER with chief complaint of back pain off and on for 4 weeks with progressive worsening lately. Patient reports more pain on the left mid to lower back with some pain with twisting movements in the chest. No difficulty breathing. No abdominal pain nausea or vomiting. Denies any urinary complaints. No loss of bowel or bladder control. No fall or trauma reported. Timing/Duration: week(s) (4), intermittent, gradual onset, worse Method of Injury: unknown Quality: sharp Back Pain Location: paraspinous muscles Severity of Pain-Max: moderate Severity of Pain-Current: moderate Modifying Factors: Improves With: immobilization. Worsens With: movement Associated Symptoms: lower back pain, muscle spasms, No urinary incontinence, No loss of bowel control, No constipation, No nausea, No vomiting, No problems urinating, No light-headedness, No dizziness, No numbness in legs/feet, No weakness, No sensory/motor loss, No tingling in legs/feet Allergies/Adverse Reactions: lisinopril Allergy (Verified 07/02/22 12:15) Anaphylactic Reaction Home Medications: Albuterol Sulfate [Albuterol Sulfate Hfa] 7 gm IH Q6HPRN PRN 07/28/21 [History] Amitriptyline HCl 25 mg [Amitriptyline 25 mg Tablet] 50 mg PO HS 07/28/21 [History] Atorvastatin Calcium [Lipitor] 80 mg PO DAILY 07/28/21 [History] Fluticasone/Vilanterol [Breo Ellipta 100-25 Mcg INH] 1 each IH DAILY 07/28/21 [History] Furosemide 20 mg [Lasix 20 mg] 20 mg PO DAILY 07/28/21 [History] Gabapentin [Neurontin ] 300 mg PO TID 07/28/21 [History] Ibuprofen 200 mg PO Q4H PRN 07/28/21 [History] Loratadine 10 mg [Claritin 10 mg] 10 mg PO DAILY 07/28/21 [History] Losartan Potassium 50 mg [Cozaar 50 MG] 50 mg PO DAILY 07/28/21 [History] Metoprolol Tartrate [Lopressor] 50 mg PO BID 07/28/21 [History] PANTOPRAZOLE 40 mg Tablet [Protonix 40MG Tablet] 40 mg PO DAILY 07/28/21 [History] Promethazine HCl 25 mg PO Q4H PRN 07/28/21 [History] Cyclobenzaprine HCl 5 mg PO HS 01/20/22 [History] Dapagliflozin Propanediol [Farxiga] 5 mg PO DAILY 01/20/22 [History] Magnesium Oxide 400 mg [Mag-Ox 400] 400 mg PO DAILY 01/20/22 [History] Hx Tetanus, Diphtheria Vaccination/Date Given: No Hx Influenza Vaccination/Date Given: Yes Hx Pneumococcal Vaccination/Date Given: Yes Immunizations Up to Date: Yes Travel Risk - International Travel Have you traveled outside of the country in past 3 weeks: No - Coronavirus Screening Are you exhibiting any of the following symptoms?: No Close contact with a COVID-19 positive Pt in past 14-21 Days: No - Vaccine Status Have you recieved a Covid-19 vaccination: No - Review of Systems Constitutional: No Symptoms Eyes: No Symptoms Ears, Nose, & Throat: No Symptoms Respiratory: No Symptoms Cardiac: No Symptoms Abdominal/Gastrointestinal: No Symptoms Genitourinary Symptoms: No Symptoms Musculoskeletal: Back Pain Skin: No Symptoms Neurological: No Symptoms Endocrine: No Symptoms Immunological/Allergic: No Symptoms - Past Medical History Pertinent Past Medical History: Yes Neurological History: Migraines, Seizures, TIA ENT History: No Pertinent History Cardiac History: Arrhythmia, Hypertension, Other Respiratory History: COPD, Pneumonia, Sleep Apnea Endocrine Medical History: Diabetes Type II Musculoskeletal History: Osteoarthritis GI Medical History: GERD History: Renal Disease Psycho-Social History: Anxiety, Depression Female Reproductive Disorders: No Pertinent History Other Medical History: depression, anxiety, viri, cardiomyopathy - Past Surgical History Past Surgical History: Yes Neuro Surgical History: No Pertinent History Cardiac: No Pertinent History Respiratory: No Pertinent History Gastrointestinal: Cholecystectomy Genitourinary: No Pertinent History Musculoskeletal: No Pertinent History Female Surgical History: Section Other Surgical History: colonoscopy - Social History Smoking Status: Current every day smoker How long have you smoked: 45 years Exposure to second hand smoke: Yes Drug Use: marijuana Patient Lives Alone: No Significant Family History: no pertinent family hx - Nursing Vital Signs Nursing Vital Signs: Initial Vital Signs Temperature 97.3 F 07/02/22 12:15 Pulse Rate 99 H 07/02/22 12:15 Respiratory Rate 18 07/02/22 12:15 Blood Pressure 143/102 07/02/22 12:15 O2 Sat by Pulse Oximetry 97 07/02/22 12:15 Pain Scale Pain Intensity [Back] 10 Pain Intensity 5 - Physical Exam General Appearance: no apparent distress, alert Eye Exam: PERRL/EOMI Ears, Nose, Throat Exam: normal ENT inspection Neck Exam: normal inspection, supple, full range of motion Respiratory Exam: normal breath sounds, lungs clear, No chest tenderness Cardiovascular Exam: regular rate/rhythm, normal heart sounds Gastrointestinal Exam: soft, normal bowel sounds, No tenderness Back Exam: normal inspection, muscle spasm, point tenderness (Left lumbar paraspinal area), No vertebral tenderness Extremity Exam: normal inspection, normal range of motion Neurologic Exam: alert, oriented x 3, cooperative Skin Exam: normal color SpO2 Interpretation: normal SpO2: 97 O2 Delivery: Room Air Ordered Tests: Medication Summary Discontinued Medications Generic Name Dose Route Start Last Admin Trade Name Comfort PRN Reason Stop Dose Admin Ketorolac Tromethamine 30 mg 07/02/22 12:41 07/02/22 13:04 Ketorolac Tromethamine 30 Mg/Ml Inj IM 07/02/22 12:42 30 mg STAT ONE Administration Ketorolac Tromethamine Confirm 07/02/22 12:50 Ketorolac Tromethamine 30 Mg/Ml Inj Administered 07/02/22 12:51 Dose 30 mg .ROUTE .STK-MED ONE Orphenadrine Citrate 60 mg 07/02/22 12:41 07/02/22 13:03 Orphenadrine Citrate 60 Mg/2 Ml Vial IM 07/02/22 12:42 60 mg STAT ONE Administration Orphenadrine Citrate Confirm 07/02/22 12:51 Orphenadrine Citrate 60 Mg/2 Ml Vial Administered 07/02/22 12:52 Dose 60 mg .ROUTE .STK-MED ONE - Progress Progress: improved Progress Note: 07/02/22 13:32 Is given Toradol and Norflex, on reevaluation feeling better. She does not have midline back pain but more in the paraspinal area. Recommended keeping appointment with primary care and pain management. Tylenol/ibuprofen as needed at home. We will send a prescription of muscle relaxants to go home as well. Discussed signs symptoms of worsening needing return to ER which she seems understanding. Has negative neuro exam in lower extremity, do not think cauda equina and do not think needs any work-up, stable for discharge. Counseled pt/family regarding: diagnosis, need for follow-up - Departure Departure Disposition: Home Clinical Impression: Strain, back Condition: Stable Critical Care Time: No Referrals: SHERIF DUKES [Primary Care Provider] - Follow up/PCP as directed (In 2 days evaluation) Additional Instructions: Take Tylenol/ibuprofen as needed for pain. Follow-up with primary care and pain management for reevaluation. Return to ER for any worsening Prescriptions: Cyclobenzaprine HCl 10 mg [Flexeril 10 MG] 10 mg PO BID 10 Days #20 tablet
[2022-07-02] MEDS ORDERED: TORAdol 30 mg Injection ONE (12:50)
[2022-07-02] MEDS ORDERED: Norflex 60 MG/2 ML ONE (12:51)
[2022-07-02 13:35] VITALS: BP 129/97; PULSE 79; O2SAT 97
== END 2022-07-02 13:40 | disposition home or self-care (01) ==
LOC: ED 12:10
DX: S39.012A Strain of muscle, fascia and tendon of lower back, initial encounter (principal); I10 Essential (primary) hypertension; E11.9 Type 2 diabetes mellitus without complications; Z79.84 Long term (current) use of oral hypoglycemic drugs; Z79.899 Other long term (current) drug therapy; Z28.310 Unvaccinated for COVID-19; Z72.0 Tobacco use
CPT/HCPCS: 96372; 99283; J1885; J2360

== ENCOUNTER 2023-12-14 17:21 | Emergency (ER) | payer OTHER ==
[2023-12-14 17:34] VITALS: TEMP 98.4
[2023-12-14 18:19] LABS: Absolute Neutrophil Ct (ANC) 5.99 x10^3/uL (1.56-6.13); BASOPHIL % 0.4 % (0.1-1.2); Basophil (Absolute #) 0.04 x10^3/uL (0.01-0.08); Eosinophil % 1.3 % (0.7-5.8); Eosinophil (Absolute #) 0.12 x10^3/uL (0.04-0.36); Hemoglobin 11.8 g/dL (11.2-15.7); IMMATURE GRAN # 0.02 x10^3u/L (0.001-0.031); IMMATURE GRAN % 0.2 % (0.001-0.429); Lymphocyte (Absolute #) 2.19 x10^3/uL (1.18-3.74); Lymphocytes % 24.1 % (19.3-51.7); Mean Cell Volume 93.4 fL (79.4-94.8); Mean Corpuscular Hemoglobin 29.8 pg (25.6-32.2); Mean Corpuscular Hgb Concent. 31.9 g/dL (32.2-35.5); Mean Platelet Volume 11.2 fL (9.4-12.3); Monocyte (Absolute #) 0.74 x10^3/uL (0.24-0.86); Monocytes % 8.1 % (4.7-12.5); Neutrophil % 65.9 % (34.0-71.1); Platelet Count 241 x10^3/uL (182-369); Red Blood Count 3.96 x10^6/uL (3.93-5.22); Red Cell Distribution Width 13.4 % (11.7-14.4); White Blood Count 9.1 x10^3/uL (3.98-10.04)
[2023-12-14 18:41] LABS: ACETAMINOPHEN < 10 ug/ml (10-30); ALBUMIN 4.6 g/dL (3.5-5.0); ALKALINE PHOSPHATASE 92 U/L (38-126); ANION GAP 15.8 MEQ/L (5-15); BLOOD UREA NITROGEN 49 mg/dL (7-17); CHLORIDE 111 mmol/L (98-107); Calcium 9.9 mg/dL (8.4-10.2); Carbon Dioxide 20 mmol/L (22-30); Creatinine 1 1.22 mg/dL (0.52-1.04); EST GLOMERULAR FILTRATION RATE 50.5 ML/MIN; ETHYL ALCOHOL < 10 mg/dL (0-10); Glucose 131 mg/dL (74-106); Potassium 4.2 mmol/L (3.5-5.1); SALICYLATE < 1.0 mg/dL (2-20); SGOT/AST 108 U/L (14-36); SGPT/ALT 53 U/L (0-35); SODIUM 143 mmol/L (135-145); Total Protein 7.7 g/dL (6.3-8.2)
[2023-12-14 19:35] LABS: Appearance Clear (Clear); Bacteria None Seen /HPF (None Seen); Bilirubin Negative (Negative); Blood Negative (Negative); Epithelial Cells None Seen /HPF (None Seen); Glucose, Urine Negative (Negative); Ketones Negative (Negative); Leukocyte Esterase Negative (Negative); Nitrite Negative (Negative); Ph 5.5 (4.6-8.0); Protein,Urine Dip Negative (Negative); RBC 0-2 /HPF (0-5); Specific Gravity 1.015 (1.005-1.030); Urobilinogen 0.2 mg/dL (0.2); WBC 0-2 /HPF (0-5)
[2023-12-14 19:40] LABS: ADD URINE CULTURE? NO (NO)
[2023-12-14 19:48] LABS: Amphetamine,Urine POSITIVE (NEGATIVE); Barbiturate,Urine NEGATIVE (NEGATIVE); Benzodiazepine,Urine NEGATIVE (NEGATIVE); Cocaine,Urine NEGATIVE (NEGATIVE); Methadone,Urine NEGATIVE (NEGATIVE); Opiate,Urine NEGATIVE (NEGATIVE); PCP,Urine NEGATIVE (NEGATIVE); THC,Urine POSITIVE (NEGATIVE)
[2023-12-14] MEDS ORDERED: Lactated Ringers 1,000 ML IV ONE (20:12)
[2023-12-14] MEDS: Lactated Ringers 1,000 ML IV ONE (20:13)
[2023-12-14 21:57] LABS: ANION GAP 13.8 MEQ/L (5-15); Calcium 9.3 mg/dL (8.4-10.2); Creatinine 1 0.91 mg/dL (0.52-1.04); EST GLOMERULAR FILTRATION RATE 71.8 ML/MIN; Potassium 3.6 mmol/L (3.5-5.1)
--- NOTE | 2023-12-14 22:21 | ERPHSYRPT ---
- History of Present Illness Time Seen by Provider: 12/14/23 17:26 Source: patient, police Exam Limitations: clinical condition Patient Subjective Stated Complaint: Pt has been paranoid for the past couple of weeks and the police have been dealing with her the whole time, she has stopped taking her meds because she thinks that someone has put stuff in them Triage Nursing Assessment: Pt brought to the ER by law enforcement, rhea wnfelipa, denies pain, talking non-stop, pulses normal, pt is paranoid, thinks that people placed drugs in her house, stole her wallet, refuses to take her meds because someone has placed something in them, skin n/w/d, keeps stating that she needs a drink Physician History: 63-year-old female is brought in the ER by PD for behavioral evaluation. Patient apparently has been calling PD multiple times about things which are not there. Patient is paranoid about other people putting drugs in her house send then taking it away. She has stopped taking medications because he thinks somebody has mixed some illegal drugs in her medications. Patient does have history of substance abuse. Denies any suicidal or homicidal ideations. Allergies/Adverse Reactions: lisinopril Allergy (Verified 12/14/23 19:46) Anaphylactic Reaction Home Medications: Albuterol Sulfate [Albuterol Sulfate Hfa] 7 gm IH Q6HPRN PRN 07/28/21 [History] Atorvastatin Calcium [Lipitor] 80 mg PO DAILY 07/28/21 [History] Fluticasone/Vilanterol [Breo Ellipta 100-25 Mcg Inhalr] 1 each IH DAILY 07/28/21 [History] Gabapentin [Neurontin ] 100 mg PO TID 07/28/21 [History] Loratadine 10 mg [Claritin 10 mg] 10 mg PO DAILY 07/28/21 [History] Losartan Potassium 50 mg [Cozaar 50 MG] 100 mg PO DAILY 07/28/21 [History] Hx Tetanus, Diphtheria Vaccination/Date Given: No Hx Influenza Vaccination/Date Given: Yes Hx Pneumococcal Vaccination/Date Given: Yes Travel Risk - International Travel Have you traveled outside of the country in past 3 weeks: No - Emerging Infectious Disease Are you exhibiting symptoms associated with any current EIDs: No - Past Medical History Pertinent Past Medical History: Yes Neurological History: Migraines, Seizures, TIA ENT History: No Pertinent History Cardiac History: Arrhythmia, Hypertension, Other Respiratory History: COPD, Pneumonia, Sleep Apnea Endocrine Medical History: Diabetes Type II Musculoskeletal History: Osteoarthritis GI Medical History: GERD History: Renal Disease Psycho-Social History: Anxiety, Depression Female Reproductive Disorders: No Pertinent History Other Medical History: depression, anxiety, viri, cardiomyopathy - Past Surgical History Past Surgical History: Yes Neuro Surgical History: No Pertinent History Cardiac: No Pertinent History Respiratory: No Pertinent History Gastrointestinal: Cholecystectomy Genitourinary: No Pertinent History Musculoskeletal: No Pertinent History Female Surgical History: Section Other Surgical History: colonoscopy Significant Family History: no pertinent family hx - Social History Smoking Status: Current every day smoker How long have you smoked: 45 years Exposure to second hand smoke: Yes Drug Use: marijuana Patient Lives Alone: No - Social Determinants of Health Will the patient participate in the screening: Unable to obtain - Review of Systems Constitutional: No Symptoms Eyes: No Symptoms Ears, Nose, & Throat: No Symptoms Respiratory: No Symptoms Cardiac: No Symptoms Abdominal/Gastrointestinal: No Symptoms Musculoskeletal: Arthralgias Skin: No Symptoms Neurological: No Symptoms Psychological: Emotional Lability, Hallucinations, Mood Changes Endocrine: No Symptoms - Nursing Vital Signs Nursing Vital Signs: Initial Vital Signs Temperature 98.4 F 12/14/23 17:23 Pulse Rate 92 H 12/14/23 17:23 Blood Pressure 125/71 12/14/23 17:23 O2 Sat by Pulse Oximetry 94 L 12/14/23 17:23 Pain Scale Pain Intensity 0 - Physical Exam General Appearance: no apparent distress, alert Eyes, Ears, Nose, Throat Exam: normal ENT inspection Neck Exam: normal inspection, full range of motion Respiratory Exam: normal breath sounds, lungs clear Cardiovascular Exam: regular rate/rhythm, normal heart sounds Gastrointestinal/Abdominal Exam: soft, No tenderness Extremities Exam: normal inspection Current Suicidality: denies suicide plan 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: alert, calm, 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-XII nml as tested, oriented x 3, No normal mood/affect Appearance: appropriate appearance, impaired insight, No appropriate insight Behavior/Eye Contact/Speech: alert & cooperative, good eye contact, normal speech Thoughts/Hallucinations: no apparent hallucination, flight of ideas, paranoid Skin Exam: normal color SpO2 Interpretation: normal SpO2: 96 O2 Delivery: Room Air Ordered Tests: Medication Summary Discontinued Medications Generic Name Dose Route Start Last Admin Trade Name Comfort PRN Reason Stop Dose Admin Acetaminophen 650 mg 12/15/23 07:35 12/15/23 07:37 Acetaminophen 325 Mg Tablet PO 12/15/23 07:36 650 mg STAT STA Administration Acetaminophen Confirm 12/15/23 07:37 Acetaminophen 325 Mg Tablet Administered 12/15/23 07:38 Dose 650 mg .ROUTE .STK-MED ONE Al Hydrox/Mg Hydrox/Simethicone Confirm 12/14/23 23:42 Mag Hydrox/Al Hydrox/Simeth 30 Ml Udcup Administered 12/14/23 23:43 Dose 30 ml .ROUTE .STK-MED ONE Lactated Ringer's 1,000 mls @ 999 mls/hr 12/14/23 19:31 12/14/23 21:32 Lactated Ringers IV 12/14/23 20:31 Infused .Q1H1M ONE Infusion Lactated Ringer's Confirm 12/14/23 20:12 Lactated Ringers Administered 12/14/23 20:13 Dose 1,000 mls @ ud IV .STK-MED ONE Lidocaine HCl Confirm 12/14/23 23:42 Lidocaine Hcl 2% Viscous 15 Ml Udcup Administered 12/14/23 23:43 Dose 15 ml .ROUTE .STK-MED ONE Lorazepam 1 mg 12/14/23 22:24 12/14/23 22:54 Lorazepam 1 Mg Tablet PO 12/14/23 22:25 1 mg STAT ONE Administration Lorazepam Confirm 12/14/23 22:53 Lorazepam 1 Mg Tablet Administered 12/14/23 22:54 Dose 1 mg .ROUTE .STK-MED ONE Lorazepam 1 mg 12/15/23 00:19 12/15/23 00:30 Lorazepam 1 Mg Tablet PO 12/15/23 00:20 1 mg STAT ONE Administration Lorazepam Confirm 12/15/23 00:29 Lorazepam 1 Mg Tablet Administered 12/15/23 00:30 Dose 1 mg .ROUTE .STK-MED ONE Magnesium Hydroxide 45 ml 12/14/23 23:41 12/14/23 23:43 Mag Hydrx/Alum Hyd/Simeth/Lido 45 Ml Bottle PO 12/14/23 23:42 45 ml STAT ONE Administration Nicotine 21 mg 12/15/23 07:35 12/15/23 07:46 Nicotine 21 Mg/Patch Patch TOP 12/15/23 07:36 21 mg STAT ONE Administration Lab/Rad Data: Laboratory Result Diagrams 12/14/23 18:15 12/14/23 21:40 Laboratory Results 12/14/23 12/14/23 12/14/23 Range/Units 21:40 19:24 19:24 WBC (3.98-10.04) x10^3/uL RBC (3.93-5.22) x10^6/uL Hgb (11.2-15.7) g/dL Hct (34.1-44.9) % MCV (79.4-94.8) fL MCH (25.6-32.2) pg MCHC (32.2-35.5) g/dL RDW (11.7-14.4) % Plt Count (182-369) x10^3/uL MPV (9.4-12.3) fL Gran % (34.0-71.1) % Immature Gran % (Auto) (0.001-0.429) % Nucleat RBC Rel Count (0.00-0.2) % Eos # (Auto) (0.04-0.36) x10^3/uL Immature Gran # (Auto) (0.001-0.031) x10^3u/L Absolute Lymphs (auto) (1.18-3.74) x10^3/uL Absolute Monos (auto) (0.24-0.86) x10^3/uL Absolute Nucleated RBC (0.00-0.012) x10^3u/L Lymphocytes % (19.3-51.7) % Monocytes % (4.7-12.5) % Eosinophils % (0.7-5.8) % Basophils % (0.1-1.2) % Absolute Granulocytes (1.56-6.13) x10^3/uL Basophils # (0.01-0.08) x10^3/uL Sodium 140 (135-145) mmol/L Potassium 3.6 (3.5-5.1) mmol/L Chloride 110 H (98-107) mmol/L Carbon Dioxide 21 L (22-30) mmol/L Anion Gap 13.8 (5-15) MEQ/L BUN 40 H (7-17) mg/dL Creatinine 0.91 (0.52-1.04) mg/dL Estimated GFR 71.8 ML/MIN Glucose 168 H (74-106) mg/dL POC Glucometer (74 to 106) mg/dL Calcium 9.3 (8.4-10.2) mg/dL Total Bilirubin (0.2-1.3) mg/dL AST (14-36) U/L ALT (0-35) U/L Alkaline Phosphatase (38-126) U/L Serum Total Protein (6.3-8.2) g/dL Albumin (3.5-5.0) g/dL Urine Color Yellow (Yellow) Urine Appearance Clear (Clear) Urine pH 5.5 (4.6-8.0) Ur Specific [place] 1.015 (1.005-1.030) Urine Protein Negative (Negative) Urine Glucose (UA) Negative (Negative) mg/dL Urine Ketones Negative (Negative) Urine Blood Negative (Negative) Urine Nitrite Negative (Negative) Urine Bilirubin Negative (Negative) Urine Urobilinogen 0.2 (0.2) mg/dL Ur Leukocyte Esterase Negative (Negative) U Hyaline Cast (Auto) 3-5 A (0-2) /LPF Urine Microscopic RBC 0-2 (0-5) /HPF Urine Microscopic WBC 0-2 (0-5) /HPF Ur Epithelial Cells None Seen (None Seen) /HPF Urine Bacteria None Seen (None Seen) /HPF Urine Culture Reflexed NO (NO) Salicylates (2-20) mg/dL Urine Opiates Level NEGATIVE (NEGATIVE) Ur Methadone NEGATIVE (NEGATIVE) Acetaminophen (10-30) ug/ml Urine Barbiturates NEGATIVE (NEGATIVE) Ur Phencyclidine (PCP) NEGATIVE (NEGATIVE) Urine Amphetamine POSITIVE A (NEGATIVE) U Benzodiazepine Level NEGATIVE (NEGATIVE) Urine Cocaine NEGATIVE (NEGATIVE) Urine Marijuana (THC) POSITIVE A (NEGATIVE) Ethyl Alcohol (0-10) mg/dL 12/14/23 12/14/23 12/14/23 Range/Units 18:36 18:15 18:15 WBC 9.1 (3.98-10.04) x10^3/uL RBC 3.96 (3.93-5.22) x10^6/uL Hgb 11.8 (11.2-15.7) g/dL Hct 37.0 (34.1-44.9) % MCV 93.4 (79.4-94.8) fL MCH 29.8 (25.6-32.2) pg MCHC 31.9 L (32.2-35.5) g/dL RDW 13.4 (11.7-14.4) % Plt Count 241 (182-369) x10^3/uL MPV 11.2 (9.4-12.3) fL Gran % 65.9 (34.0-71.1) % Immature Gran % (Auto) 0.2 (0.001-0.429) % Nucleat RBC Rel Count 0.0 (0.00-0.2) % Eos # (Auto) 0.12 (0.04-0.36) x10^3/uL Immature Gran # (Auto) 0.02 (0.001-0.031) x10^3u/L Absolute Lymphs (auto) 2.19 (1.18-3.74) x10^3/uL Absolute Monos (auto) 0.74 (0.24-0.86) x10^3/uL Absolute Nucleated RBC 0.00 (0.00-0.012) x10^3u/L Lymphocytes % 24.1 (19.3-51.7) % Monocytes % 8.1 (4.7-12.5) % Eosinophils % 1.3 (0.7-5.8) % Basophils % 0.4 (0.1-1.2) % Absolute Granulocytes 5.99 (1.56-6.13) x10^3/uL Basophils # 0.04 (0.01-0.08) x10^3/uL Sodium 143 (135-145) mmol/L Potassium 4.2 (3.5-5.1) mmol/L Chloride 111 H (98-107) mmol/L Carbon Dioxide 20 L (22-30) mmol/L Anion Gap 15.8 H (5-15) MEQ/L BUN 49 H (7-17) mg/dL Creatinine 1.22 H (0.52-1.04) mg/dL Estimated GFR 50.5 ML/MIN Glucose 131 H (74-106) mg/dL POC Glucometer 115 H (74 to 106) mg/dL Calcium 9.9 (8.4-10.2) mg/dL Total Bilirubin 1.00 (0.2-1.3) mg/dL AST 108 H (14-36) U/L ALT 53 H (0-35) U/L Alkaline Phosphatase 92 (38-126) U/L Serum Total Protein 7.7 (6.3-8.2) g/dL Albumin 4.6 (3.5-5.0) g/dL Urine Color (Yellow) Urine Appearance (Clear) Urine pH (4.6-8.0) Ur Specific [place] (1.005-1.030) Urine Protein (Negative) Urine Glucose (UA) (Negative) mg/dL Urine Ketones (Negative) Urine Blood (Negative) Urine Nitrite (Negative) Urine Bilirubin (Negative) Urine Urobilinogen (0.2) mg/dL Ur Leukocyte Esterase (Negative) U Hyaline Cast (Auto) (0-2) /LPF Urine Microscopic RBC (0-5) /HPF Urine Microscopic WBC (0-5) /HPF Ur Epithelial Cells (None Seen) /HPF Urine Bacteria (None Seen) /HPF Urine Culture Reflexed (NO) Salicylates < 1.0 L (2-20) mg/dL Urine Opiates Level (NEGATIVE) Ur Methadone (NEGATIVE) Acetaminophen < 10 L (10-30) ug/ml Urine Barbiturates (NEGATIVE) Ur Phencyclidine (PCP) (NEGATIVE) Urine Amphetamine (NEGATIVE) U Benzodiazepine Level (NEGATIVE) Urine Cocaine (NEGATIVE) Urine Marijuana (THC) (NEGATIVE) Ethyl Alcohol < 10 (0-10) mg/dL - Progress Progress: improved Progress Note: 12/14/23 22:28 63-year-old is evaluated in the ER for paranoia. Patient is paranoid about people trying to poison her. She stopped taking medications. Patient is not suicidal or homicidal. Workup showed normal white count, has some ZAKIA, given fluids and repeated labs show improvement in creatinine. No UTI. Urine drug screen is positive for amphetamine. She is medically cleared for behavioral health. 12/15/23 01:16 patient is accepted for transfer to [facility] under care of Dr. Nguyen Counseled pt/family regarding: lab results, diagnosis, need for follow-up Medical Desision Making - Independent Historian Additional History obtained from: [employer]/EMT - External Record(s) Reviewed Records reviewed as a part of evaluation & management: EMS - Discussion of managment Care discussed with:: specialist (Dr. Nguyen psychiatric) Reviewed:: Test results Agreed on:: Treatment plan, decision to admit Will see patient: in hospital - Diagnostic Testing Diagnostic test were ordered, analyzed, and reviewed by me: Yes - Risk of complications The pt has a mod risk of morbidity or mortality based on: Need for prescription drug management The pt has a high risk of morbidity or mortality based on: Decision regarding hospitilization or escalation of hosp level of care - Departure Departure Disposition: Transfer Clinical Impression: Paranoia, Amphetamine abuse, ZAKIA (acute kidney injury) Condition: Stable Critical Care Time: No Referrals: YOUSUF SAMUEL DO [Primary Care Provider] - Follow up/PCP as directed
[2023-12-14] MEDS ORDERED: Ativan 1 MG ONE (22:53)
[2023-12-14] MEDS: Ativan 1 MG PO ONE (22:54)
[2023-12-14] MEDS ORDERED: MAALOX ES 30 ML UNIT DOSE ONE (23:42)
[2023-12-14] MEDS ORDERED: XYLOCAINE VISCOUS 2% 15 ML CUP ONE (23:42)
[2023-12-14] MEDS: GI COCKTAIL 45 ML (Maalox/Lidocaine) PO ONE (23:43)
[2023-12-15] MEDS ORDERED: Ativan 1 MG ONE (00:29)
[2023-12-15] MEDS: Ativan 1 MG PO ONE (00:30)
[2023-12-15] MEDS: TYLENOL 325 MG PO STA (07:37)
[2023-12-15] MEDS ORDERED: TYLENOL 325 MG ONE (07:37)
[2023-12-15] MEDS: Nicoderm CQ 21 MG TOP ONE (07:46)
[2023-12-15 08:17] VITALS: BP 109/51; PULSE 80; RESP 19; O2SAT 96
== END 2023-12-15 10:13 ==
LOC: ED 17:21
DX: F20.0 Paranoid schizophrenia (principal); F15.10 Other stimulant abuse, uncomplicated; N17.9 Acute kidney failure, unspecified; I10 Essential (primary) hypertension; E11.9 Type 2 diabetes mellitus without complications; Z79.899 Other long term (current) drug therapy; Z72.0 Tobacco use
CPT/HCPCS: 36000; 36415; 80048; 80053; 80143; 80179; 80307; 81001; 82077; 82947; 85025; 90791; 96360; 99285; Q3014; A9270-GY

== ENCOUNTER 2024-01-03 10:05 | Emergency (ER) | payer OTHER ==
[2024-01-03 10:22] VITALS: PULSE 71; TEMP 98.6
--- NOTE | 2024-01-03 10:25 | ERPHSYRPT ---
- History of Present Illness Time Seen by Provider: 01/03/24 10:25 Source: patient Exam Limitations: no limitations Patient Subjective Stated Complaint: Pt injured her left wrist/hand/forearm by placing it in a dogs cage 3 days ago and then re hurt it last night while she was packing to move Triage Nursing Assessment: Pt brought self to the ER, vitals wnl, rates pain as 8/10, bruising to left forearm and upper arm which she states was all from the dog cage, pulses normal, pt is on blood thinners, denies any other injuries Physician History: This is a right-handed 63-year-old white female patient of Dr. Samuel who presents with left forearm, wrist and hand pain that she initially injured when she stuck her hand into the cage to place a walking collar on her dog prior to letting him out of the cage because he tends to run off. When she did that the dog pulled in the patient's left upper extremity from the forearm wrist and hand were used as "a fulcrum" and she had pain. Then last night she was moving boxes because she is moving out of her residence and she ended again. Patient is a daily smoker cigarettes. She is on blood thinning medication. Patient has a longstanding history of substance abuse, hypertension, COPD, hyperlipidemia, diabetes, gastroesophageal reflux disease, renal disease, anxiety, depression, migraine headaches, seizure disorder and TIAs. Patient is able to move the left upper extremity fully without any difficulty. Occurred: days ago (3) Method of Injury: other (Pulling and twisting), twisted Quality: aching Severity of Pain-Max: mild (Moderate) Severity of Pain-Current: mild (Moderate) Extremities Pain Location: forearm: left, wrist: left, hand: left Modifying Factors: Improves With: movement Associated Symptoms: none Allergies/Adverse Reactions: lisinopril Allergy (Verified 01/03/24 10:22) Anaphylactic Reaction Home Medications: Albuterol Sulfate [Albuterol Sulfate Hfa] 7 gm IH Q6HPRN PRN 07/28/21 [History] Atorvastatin Calcium [Lipitor] 80 mg PO DAILY 07/28/21 [History] Fluticasone/Vilanterol [Breo Ellipta 100-25 Mcg Inhalr] 1 each IH DAILY 07/28/21 [History] Gabapentin [Neurontin ] 100 mg PO TID 07/28/21 [History] Loratadine 10 mg [Claritin 10 mg] 10 mg PO DAILY 07/28/21 [History] Losartan Potassium 50 mg [Cozaar 50 MG] 100 mg PO DAILY 07/28/21 [History] Methylprednisolone 4 mg [Medrol 4 mg] 4 mg PO UD 01/03/24 [History] Semaglutide [Ozempic] 2 mg SQ WEEKLY 01/03/24 [History] cephALEXin [Cephalexin] 500 mg PO BID 01/03/24 [History] Hx Tetanus, Diphtheria Vaccination/Date Given: No Hx Influenza Vaccination/Date Given: Yes Hx Pneumococcal Vaccination/Date Given: Yes Travel Risk - International Travel Have you traveled outside of the country in past 3 weeks: No - Emerging Infectious Disease Are you exhibiting symptoms associated with any current EIDs: No - Review of Systems Constitutional: No Symptoms Eyes: No Symptoms Ears, Nose, & Throat: No Symptoms Respiratory: No Symptoms Cardiac: No Symptoms Abdominal/Gastrointestinal: No Symptoms Genitourinary Symptoms: No Symptoms Musculoskeletal: Injury (Left forearm, left wrist and left hand), Joint Pain, No Deformity Skin: Other (Ecchymosis in these areas (left forearm, left wrist and left hand)) Neurological: No Symptoms Psychological: No Symptoms Endocrine: No Symptoms Hematologic/Lymphatic: No Symptoms Immunological/Allergic: No Symptoms All Other Systems: Reviewed and Negative - Past Medical History Pertinent Past Medical History: Yes Neurological History: Migraines, Seizures, TIA ENT History: No Pertinent History Cardiac History: Arrhythmia, Hypertension, Other Respiratory History: COPD, Pneumonia, Sleep Apnea Endocrine Medical History: Diabetes Type II Musculoskeletal History: Osteoarthritis GI Medical History: GERD History: Renal Disease Psycho-Social History: Anxiety, Depression Female Reproductive Disorders: No Pertinent History Other Medical History: depression, anxiety, viri, cardiomyopathy - Past Surgical History Past Surgical History: Yes Neuro Surgical History: No Pertinent History Cardiac: No Pertinent History Respiratory: No Pertinent History Gastrointestinal: Cholecystectomy Genitourinary: No Pertinent History Musculoskeletal: No Pertinent History Female Surgical History: Section Other Surgical History: colonoscopy Significant Family History: no pertinent family hx - Social History Smoking Status: Current every day smoker How long have you smoked: 45 years Exposure to second hand smoke: Yes Drug Use: marijuana Patient Lives Alone: No - Social Determinants of Health Will the patient participate in the screening: Unable to obtain - Nursing Vital Signs Nursing Vital Signs: Initial Vital Signs Temperature 98.6 F 01/03/24 10:13 Pulse Rate 71 01/03/24 10:13 Blood Pressure 131/81 01/03/24 10:13 O2 Sat by Pulse Oximetry 100 01/03/24 10:13 Pain Scale Pain Intensity 8 - Physical Exam General Appearance: no apparent distress, alert, anxiety Eyes, Ears, Nose, Throat Exam: normal ENT inspection, moist mucous membranes Neck Exam: normal inspection Cardiovascular/Respiratory Exam: chest non-tender, no respiratory distress Abdominal Exam: non-tender Back Exam: normal inspection, normal range of motion, No CVA tenderness, No vertebral tenderness Shoulder Exam: normal inspection, non-tender, no evidence of injury, normal ROM Elbow/Forearm Exam: normal ROM, ecchymosis (Left forearm), soft tissue tenderness (Left forearm), No deformity Wrist Exam: normal ROM, ecchymosis (Left wrist), soft tissue tenderness (Left wrist), No deformity Hand Exam: normal ROM, ecchymosis (Left hand), soft tissue tenderness (Left hand), No deformity Neuro/Tendon Exam: normal sensation, normal motor functions, responds to pain, no evidence tendon injury, No normal tendon functions, No motor deficit, No sensory deficit Mental Status Exam: alert, oriented x 3, cooperative Skin Exam: ecchymosis (Skin of the left forearm, left wrist and left hand) SpO2 Interpretation: normal SpO2: 100 O2 Delivery: Room Air - Course Nursing assessment & vital signs reviewed: Yes Ordered Tests: Active Orders 24 hr Category Date Time Status FOREARM Stat Exams 01/03/24 10:42 Completed HAND (MINIMUM 3 VIEWS) Stat Exams 01/03/24 10:42 Completed WRIST (MIN 3 VIEWS) Stat Exams 01/03/24 10:42 Taken - Progress Progress: unchanged Progress Note: 01/03/24 10:55 My medical decision making and the assignment of low complexity to this patient's medical issue today is based on review of the patient's past medical history, review of the patient's medication list, review of patient drug allergy list, history present illness and physical findings on examination. The workup in this patient includes x-ray of the left forearm, left wrist and left hand. Differential diagnosis includes but is not limited to dislocation, contusion, fracture, fracture/dislocation 01/03/24 11:32 I interpreted the preliminary x-rays of the left forearm, left wrist and left hand. On my interpretation, there is no evidence of acute fracture or dislocation on any of these x-rays I preliminarily interpreted. Patient was sent home with 2 Percocet 5/325 pills that she is to take 1 orally every 6-8 hours. She was told not to take these medication until she gets home. She is to contact her primary prescribing provider today, to make arrangements for follow-up appointment for further evaluation and management including pain control. Counseled pt/family regarding: diagnosis, need for follow-up, rad results Medical Desision Making - Diagnostic Testing Diagnostic test were ordered, analyzed, and reviewed by me: Yes Radiological Interpretation: Interpreted by me - Risk of complications Low Risk: Low risk of morbidity from additional dx testing or treatment - Departure Departure Disposition: Home Clinical Impression: Pain of left upper extremity Condition: Stable Critical Care Time: No Referrals: YOUSUF SAMUEL DO [Primary Care Provider] - Follow up/PCP as directed Additional Instructions: Ice pack to tender areas 3 times a day for the next 48 hours. Call your prescribing provider today, 01/03/2024, to make arrangements for further evaluation management including pain control.
--- NOTE | 2024-01-03 11:20 | XRAY ---
Indication: Injury. Comparison: None 2 view left forearm demonstrates normal bones, articulation, and soft tissues.
--- NOTE | 2024-01-03 11:20 | XRAY ---
Indication: Injury. Comparison: None 3 view left hand obtained. No bony, articular, or soft tissue abnormalities.
[2024-01-03 11:24] VITALS: BP 127/85
[2024-01-03 11:35] VITALS: O2SAT 100
[2024-01-03] MEDS ORDERED: PERCOCET TABLET 5/325MG ONE (11:37)
[2024-01-03] MEDS: PERCOCET TABLET 5/325MG PO STA (11:39)
--- NOTE | 2024-01-03 12:10 | XRAY ---
Indication: Injury. Comparison: None 3 view left wrist obtained. No bony, articular, or soft tissue abnormalities.
== END 2024-01-03 11:53 | disposition home or self-care (01) ==
LOC: ED 10:05
DX: M79.602 Pain in left arm (principal); I10 Essential (primary) hypertension; E78.5 Hyperlipidemia, unspecified; E11.9 Type 2 diabetes mellitus without complications; Z79.52 Long term (current) use of systemic steroids; Z79.85 Long-term (current) use of injectable non-insulin antidiabetic drugs; Z79.899 Other long term (current) drug therapy; Z72.0 Tobacco use
CPT/HCPCS: 73090; 73110; 73130; 99283; A9270-GY

== ENCOUNTER 2024-02-19 12:54 | Emergency (ER) | payer OTHER ==
--- NOTE | 2024-02-19 13:01 | ERPHSYRPT ---
- History of Present Illness Time Seen by Provider: 02/19/24 13:01 Source: patient, old records Exam Limitations: no limitations Physician History: This is a 63-year-old white female patient who was seen at her primary care physician's office and also had a discussion with [facility] regarding her anxiety that has been worsening over the last several weeks. Because of her level of anxiety at this time and the complaint of neck pain without traumatic injury, she was told to come to the emergency room. Patient was transported to the emergency room bed #6 by wheelchair. Patient denies chest pain. Patient denies shortness of breath. Patient denies headache. Patient denies suicidal or homicidal ideation or intention. Patient is a daily smoker of tobacco cigarettes. Patient has a history of substance abuse in the past. She is on anticoagulation therapy. She has a history of hypertension, COPD, hyperlipidemia, diabetes, gastroesophageal reflux disease, chronic renal disease, anxiety/panic disorder and depression, migraine headaches, seizure disorder and TIAs. Patient arrives hyperventilating. Timing/Duration: day(s) (In the last day or 2 chronic symptoms worse) Severity: moderate Deficits: no difficulties Baseline/Normal Cognition: alert oriented x 3 Current Cognition: alert oriented x 3 Baseline Gait: walks w/o assistance Associated Symptoms: other (Panic disorder/anxiety) Allergies/Adverse Reactions: lisinopril Allergy (Verified 02/19/24 13:01) Anaphylactic Reaction Home Medications: Albuterol Sulfate [Albuterol Sulfate Hfa] 7 gm IH Q6HPRN PRN 07/28/21 [History] Atorvastatin Calcium [Lipitor] 80 mg PO DAILY 07/28/21 [History] Fluticasone/Vilanterol [Breo Ellipta 100-25 Mcg Inhalr] 1 each IH DAILY 07/28/21 [History] Gabapentin [Neurontin ] 100 mg PO TID 07/28/21 [History] Loratadine 10 mg [Claritin 10 mg] 10 mg PO DAILY 07/28/21 [History] Losartan Potassium 50 mg [Cozaar 50 MG] 100 mg PO DAILY 07/28/21 [History] Semaglutide [Ozempic] 2 mg SQ WEEKLY 01/03/24 [History] Hx Tetanus, Diphtheria Vaccination/Date Given: No Hx Influenza Vaccination/Date Given: Yes Hx Pneumococcal Vaccination/Date Given: Yes Travel Risk - International Travel Have you traveled outside of the country in past 3 weeks: No - Emerging Infectious Disease Are you exhibiting symptoms associated with any current EIDs: No - Review of Systems Constitutional: No Symptoms Eyes: No Symptoms Ears, Nose, & Throat: No Symptoms Respiratory: No Symptoms Cardiac: No Symptoms Abdominal/Gastrointestinal: No Symptoms Genitourinary Symptoms: No Symptoms Musculoskeletal: No Symptoms Skin: No Symptoms Neurological: Dizziness Psychological: Anxiety, Emotional Lability, No Suicidal Ideations, No Homicidal Ideations Endocrine: No Symptoms Hematologic/Lymphatic: No Symptoms Immunological/Allergic: No Symptoms All Other Systems: Reviewed and Negative - Past Medical History Pertinent Past Medical History: Yes Neurological History: Migraines, Seizures, TIA ENT History: No Pertinent History Cardiac History: Arrhythmia, Hypertension, Other Respiratory History: COPD, Pneumonia, Sleep Apnea Endocrine Medical History: Diabetes Type II Musculoskeletal History: Osteoarthritis GI Medical History: GERD History: Renal Disease Psycho-Social History: Anxiety, Depression Female Reproductive Disorders: No Pertinent History Other Medical History: depression, anxiety, viri, cardiomyopathy - Past Surgical History Past Surgical History: Yes Neuro Surgical History: No Pertinent History Cardiac: No Pertinent History Respiratory: No Pertinent History Gastrointestinal: Cholecystectomy Genitourinary: No Pertinent History Musculoskeletal: No Pertinent History Female Surgical History: Section Other Surgical History: colonoscopy Significant Family History: no pertinent family hx - Social History Smoking Status: Current every day smoker How long have you smoked: 45 years Exposure to second hand smoke: Yes Drug Use: marijuana Patient Lives Alone: No - Social Determinants of Health Will the patient participate in the screening: Unable to obtain - Nursing Vital Signs Nursing Vital Signs: Initial Vital Signs Temperature 97.2 F 02/19/24 13:14 Pulse Rate 95 H 02/19/24 13:14 Respiratory Rate 28 H 02/19/24 13:14 Blood Pressure 173/112 02/19/24 13:14 O2 Sat by Pulse Oximetry 100 02/19/24 13:14 Pain Scale Pain Intensity 6 - [place] Coma Scale Best Eye Response ([place]): (4) open spontaneously Best Verbal Response ([place]): (5) oriented Best Motor Response ([place]): (6) obeys commands [place] Total: 15 - Physical Exam General Appearance: mild distress, alert, anxiety, thin Eye Exam: bilateral eye: normal inspection, PERRL, EOMI Ears, Nose, Throat Exam: normal ENT inspection, moist mucous membranes Neck Exam: normal inspection, non-tender, supple, full range of motion Respiratory: normal breath sounds, lungs clear, airway intact, No chest tenderness, No respiratory distress Cardiovascular: regular rate/rhythm, normal heart sounds, normal peripheral pulses Gastrointestinal: soft, normal bowel sounds, No tenderness Pelvic Exam: not done Rectal Exam: not done Back Exam: normal inspection, normal range of motion, No CVA tenderness, No vertebral tenderness Extremity Exam: normal inspection, normal range of motion, pelvis stable Mental Status: alert, oriented x 3, other (Very anxious/appears to have) molded candles wicker Exam: normal hearing, normal speech, PERRL Motor/Sensory: no motor deficit, no sensory deficit, no pronator drift Skin Exam: normal color, warm, dry SpO2 Interpretation: normal O2 Delivery: Room Air - Course Nursing assessment & vital signs reviewed: Yes EKG Interpreted by Me: RATE (101), Sinus Tach, NORMAL AXIS, NORMAL INTERVALS, NORMAL QRS, NORMAL ST-T, Other (No acute ischemic changes on today's twelve-lead EKG.) Ordered Tests: Active Orders 24 hr Category Date Time Status Environmental Auditor STAT Care 02/19/24 13:12 Active EKG-ER Only STAT Care 02/19/24 13:12 Active IV Insertion STAT Care 02/19/24 13:12 Active CBC W DIFF Stat Lab 02/19/24 13:25 Completed CMP Stat Lab 02/19/24 13:25 Completed ETHYL ALCOHOL Stat Lab 02/19/24 13:25 Completed MAGNESIUM Stat Lab 02/19/24 13:25 Completed TROPONIN Q4H Lab 02/19/24 13:25 Completed TROPONIN Q4H Lab 02/19/24 17:15 Ordered TROPONIN Q4H Lab 02/19/24 21:15 Ordered UA W/RFX UR CULTURE Stat Lab 02/19/24 14:23 Completed Urine Triage Profile Stat Lab 02/19/24 Completed Medication Summary Discontinued Medications Generic Name Dose Route Start Last Admin Trade Name Freq PRN Reason Stop Dose Admin Acetaminophen 650 mg 02/19/24 15:16 02/19/24 15:20 Acetaminophen 325 Mg Tablet PO 02/19/24 15:17 650 mg STAT ONE Administration Acetaminophen Confirm 02/19/24 15:19 Acetaminophen 325 Mg Tablet Administered 02/19/24 15:20 Dose 650 mg .ROUTE .STK-MED ONE Ibuprofen 600 mg 02/19/24 15:16 02/19/24 15:20 Ibuprofen 600 Mg Tablet PO 02/19/24 15:17 600 mg STAT ONE Administration Ibuprofen Confirm 02/19/24 15:19 Ibuprofen 600 Mg Tablet Administered 02/19/24 15:20 Dose 600 mg .ROUTE .STK-MED ONE Lorazepam 1 mg 02/19/24 13:28 02/19/24 13:31 Lorazepam 2 Mg/1 Ml 2 Mg Vial IM 02/19/24 13:29 1 mg STAT ONE Administration Lorazepam Confirm 02/19/24 13:31 Lorazepam 2 Mg/1 Ml 2 Mg Vial Administered 02/19/24 13:32 Dose 2 mg .ROUTE .STK-MED ONE Lab/Rad Data: Laboratory Result Diagrams 02/19/24 13:25 02/19/24 13:25 Laboratory Results 02/19/24 02/19/24 02/19/24 Range/Units Unknown 14:23 13:25 WBC (3.98-10.04) x10^3/uL RBC (3.93-5.22) x10^6/uL Hgb (11.2-15.7) g/dL Hct (34.1-44.9) % MCV (79.4-94.8) fL MCH (25.6-32.2) pg MCHC (32.2-35.5) g/dL RDW (11.7-14.4) % Plt Count (182-369) x10^3/uL MPV (9.4-12.3) fL Gran % (34.0-71.1) % Immature Gran % (Auto) (0.001-0.429) % Nucleat RBC Rel Count (0.00-0.2) % Eos # (Auto) (0.04-0.36) x10^3/uL Immature Gran # (Auto) (0.001-0.031) x10^3u/L Absolute Lymphs (auto) (1.18-3.74) x10^3/uL Absolute Monos (auto) (0.24-0.86) x10^3/uL Absolute Nucleated RBC (0.00-0.012) x10^3u/L Lymphocytes % (19.3-51.7) % Monocytes % (4.7-12.5) % Eosinophils % (0.7-5.8) % Basophils % (0.1-1.2) % Absolute Granulocytes (1.56-6.13) x10^3/uL Basophils # (0.01-0.08) x10^3/uL Sodium (135-145) mmol/L Potassium (3.5-5.1) mmol/L Chloride (98-107) mmol/L Carbon Dioxide (22-30) mmol/L Anion Gap (5-15) MEQ/L BUN (7-17) mg/dL Creatinine (0.52-1.04) mg/dL Estimated GFR ML/MIN Glucose (74-106) mg/dL Calcium (8.4-10.2) mg/dL Magnesium (1.6-2.3) mg/dL Total Bilirubin (0.2-1.3) mg/dL AST (14-36) U/L ALT (0-35) U/L Alkaline Phosphatase (38-126) U/L Troponin I < 0.012 (0.000-0.033) ng/mL Serum Total Protein (6.3-8.2) g/dL Albumin (3.5-5.0) g/dL Urine Color Yellow (Yellow) Urine Appearance Clear (Clear) Urine pH 7.5 (4.6-8.0) Ur Specific Mitchell <=1.005 (1.005-1.030) Urine Protein Negative (Negative) Urine Glucose (UA) Negative (Negative) mg/dL Urine Ketones Negative (Negative) Urine Blood Negative (Negative) Urine Nitrite Negative (Negative) Urine Bilirubin Negative (Negative) Urine Urobilinogen 0.2 (0.2) mg/dL Ur Leukocyte Esterase Negative (Negative) U Hyaline Cast (Auto) NONE SEEN (0-2) /LPF Urine Microscopic RBC 0-2 (0-5) /HPF Urine Microscopic WBC 0-2 (0-5) /HPF Ur Epithelial Cells None Seen (None Seen) /HPF Urine Bacteria None Seen (None Seen) /HPF Urine Culture Reflexed NO (NO) Urine Opiates Level NEGATIVE (NEGATIVE) Ur Methadone NEGATIVE (NEGATIVE) Urine Barbiturates NEGATIVE (NEGATIVE) Ur Phencyclidine (PCP) NEGATIVE (NEGATIVE) Urine Amphetamine NEGATIVE (NEGATIVE) U Benzodiazepine Level NEGATIVE (NEGATIVE) Urine Cocaine NEGATIVE (NEGATIVE) Urine Marijuana (THC) NEGATIVE (NEGATIVE) Ethyl Alcohol (0-10) mg/dL 02/19/24 02/19/24 Range/Units 13:25 13:25 WBC 6.1 (3.98-10.04) x10^3/uL RBC 4.15 (3.93-5.22) x10^6/uL Hgb 13.1 (11.2-15.7) g/dL Hct 37.2 (34.1-44.9) % MCV 89.6 (79.4-94.8) fL MCH 31.6 (25.6-32.2) pg MCHC 35.2 (32.2-35.5) g/dL RDW 13.0 (11.7-14.4) % Plt Count 159 L (182-369) x10^3/uL MPV 11.3 (9.4-12.3) fL Gran % 51.8 (34.0-71.1) % Immature Gran % (Auto) 0.2 (0.001-0.429) % Nucleat RBC Rel Count 0.0 (0.00-0.2) % Eos # (Auto) 0.05 (0.04-0.36) x10^3/uL Immature Gran # (Auto) 0.01 (0.001-0.031) x10^3u/L Absolute Lymphs (auto) 2.52 (1.18-3.74) x10^3/uL Absolute Monos (auto) 0.31 (0.24-0.86) x10^3/uL Absolute Nucleated RBC 0.00 (0.00-0.012) x10^3u/L Lymphocytes % 41.3 (19.3-51.7) % Monocytes % 5.1 (4.7-12.5) % Eosinophils % 0.8 (0.7-5.8) % Basophils % 0.8 (0.1-1.2) % Absolute Granulocytes 3.16 (1.56-6.13) x10^3/uL Basophils # 0.05 (0.01-0.08) x10^3/uL Sodium 137 (135-145) mmol/L Potassium 4.1 (3.5-5.1) mmol/L Chloride 107 (98-107) mmol/L Carbon Dioxide 16 L* (22-30) mmol/L Anion Gap 18.4 H (5-15) MEQ/L BUN 15 (7-17) mg/dL Creatinine 1.04 (0.52-1.04) mg/dL Estimated GFR 61.2 ML/MIN Glucose 105 (74-106) mg/dL Calcium 10.3 H (8.4-10.2) mg/dL Magnesium 1.4 L (1.6-2.3) mg/dL Total Bilirubin 1.10 (0.2-1.3) mg/dL AST 32 (14-36) U/L ALT 22 (0-35) U/L Alkaline Phosphatase 86 (38-126) U/L Troponin I (0.000-0.033) ng/mL Serum Total Protein 7.3 (6.3-8.2) g/dL Albumin 4.7 (3.5-5.0) g/dL Urine Color (Yellow) Urine Appearance (Clear) Urine pH (4.6-8.0) Ur Specific [place] (1.005-1.030) Urine Protein (Negative) Urine Glucose (UA) (Negative) mg/dL Urine Ketones (Negative) Urine Blood (Negative) Urine Nitrite (Negative) Urine Bilirubin (Negative) Urine Urobilinogen (0.2) mg/dL Ur Leukocyte Esterase (Negative) U Hyaline Cast (Auto) (0-2) /LPF Urine Microscopic RBC (0-5) /HPF Urine Microscopic WBC (0-5) /HPF Ur Epithelial Cells (None Seen) /HPF Urine Bacteria (None Seen) /HPF Urine Culture Reflexed (NO) Urine Opiates Level (NEGATIVE) Ur Methadone (NEGATIVE) Urine Barbiturates (NEGATIVE) Ur Phencyclidine (PCP) (NEGATIVE) Urine Amphetamine (NEGATIVE) U Benzodiazepine Level (NEGATIVE) Urine Cocaine (NEGATIVE) Urine Marijuana (THC) (NEGATIVE) Ethyl Alcohol < 10 (0-10) mg/dL - Progress Progress: improved, re-examined Progress Note: 02/19/24 14:46 My medical decision making and the assignment of moderate complexity to this patient's medical issue today is based on review of the patient's past medical history, review the patient's medication list, reviewed patient drug allergy list, history present illness and physical findings on examination. The workup in this patient includes placement of intravenous line, twelve-lead EKG, troponin level, CBC, magnesium level, CMP, urine drug screen, alcohol level and urinalysis. We will also provide the patient with Ativan parenterally. Differential diagnosis includes but is not limited to electrolyte abnormalities, dehydration, urinary tract infection, illicit drug use, panic disorder/anxiety about health 02/19/24 15:50 I interpreted the patient's laboratory data results. Based on the laboratory data results, the patient has no acute or emergent medical issue. I reexamined this patient before the discharge. She states she is feeling much better now. She has some mild neck pain but nothing like she had before. The Tylenol and ibuprofen helped her quite a bit. Patient is much more calm. She looks happy and is smiling. She wants to go home. She has no chest pain and she is not short of breath. She has no abdominal pain Counseled pt/family regarding: lab results, diagnosis, need for follow-up Medical Desision Making - Diagnostic Testing Diagnostic test were ordered, analyzed, and reviewed by me: Yes - Risk of complications Low Risk: Low risk of morbidity from additional dx testing or treatment - Departure Departure Disposition: Home Clinical Impression: Anxiety about health, Neck pain Condition: Stable Critical Care Time: No Referrals: YOUSUF SAMUEL, [Primary Care Provider] - Follow up/PCP as directed Additional Instructions: Drink plenty of fluids. Take your medications as prescribed. Call your primary care provider tomorrow, 02/20/2024, to make arrangements for follow-up appointment to be seen in the next 5 to 7 days. Avoid any illicit drug use.
[2024-02-19 13:20] VITALS: TEMP 97.2
[2024-02-19 13:29] LABS: Absolute Neutrophil Ct (ANC) 3.16 x10^3/uL (1.56-6.13); BASOPHIL % 0.8 % (0.1-1.2); Basophil (Absolute #) 0.05 x10^3/uL (0.01-0.08); Eosinophil % 0.8 % (0.7-5.8); Eosinophil (Absolute #) 0.05 x10^3/uL (0.04-0.36); Hematocrit 37.2 % (34.1-44.9); Hemoglobin 13.1 g/dL (11.2-15.7); IMMATURE GRAN # 0.01 x10^3u/L (0.001-0.031); IMMATURE GRAN % 0.2 % (0.001-0.429); Lymphocyte (Absolute #) 2.52 x10^3/uL (1.18-3.74); Lymphocytes % 41.3 % (19.3-51.7); Mean Cell Volume 89.6 fL (79.4-94.8); Mean Corpuscular Hemoglobin 31.6 pg (25.6-32.2); Mean Corpuscular Hgb Concent. 35.2 g/dL (32.2-35.5); Mean Platelet Volume 11.3 fL (9.4-12.3); Monocyte (Absolute #) 0.31 x10^3/uL (0.24-0.86); Monocytes % 5.1 % (4.7-12.5); Neutrophil % 51.8 % (34.0-71.1); Platelet Count 159 x10^3/uL (182-369); Red Blood Count 4.15 x10^6/uL (3.93-5.22); White Blood Count 6.1 x10^3/uL (3.98-10.04)
[2024-02-19] MEDS ORDERED: Ativan 2 MG/1 ML VIAL ONE (13:31)
[2024-02-19] MEDS: Ativan 2 MG/1 ML VIAL IM ONE (13:31)
[2024-02-19 13:46] LABS: ALBUMIN 4.7 g/dL (3.5-5.0); ALKALINE PHOSPHATASE 86 U/L (38-126); ANION GAP 18.4 MEQ/L (5-15); BLOOD UREA NITROGEN 15 mg/dL (7-17); CHLORIDE 107 mmol/L (98-107); Calcium 10.3 mg/dL (8.4-10.2); Creatinine 1 1.04 mg/dL (0.52-1.04); EST GLOMERULAR FILTRATION RATE 61.2 ML/MIN; ETHYL ALCOHOL < 10 mg/dL (0-10); Glucose 105 mg/dL (74-106); MAGNESIUM 1.4 mg/dL (1.6-2.3); Potassium 4.1 mmol/L (3.5-5.1); SGOT/AST 32 U/L (14-36); SGPT/ALT 22 U/L (0-35); SODIUM 137 mmol/L (135-145); Total Protein 7.3 g/dL (6.3-8.2)
[2024-02-19 13:52] LABS: Carbon Dioxide 16 mmol/L (22-30)
[2024-02-19 14:37] LABS: Appearance Clear (Clear); Bacteria None Seen /HPF (None Seen); Bilirubin Negative (Negative); Blood Negative (Negative); Epithelial Cells None Seen /HPF (None Seen); Glucose, Urine Negative (Negative); Hyaline Casts NONE SEEN /LPF (0-2); Ketones Negative (Negative); Leukocyte Esterase Negative (Negative); Nitrite Negative (Negative); Ph 7.5 (4.6-8.0); Protein,Urine Dip Negative (Negative); RBC 0-2 /HPF (0-5); Specific Gravity <=1.005 (1.005-1.030); Urobilinogen 0.2 mg/dL (0.2); WBC 0-2 /HPF (0-5)
[2024-02-19 14:39] LABS: ADD URINE CULTURE? NO (NO)
[2024-02-19 15:02] VITALS: RESP 16
[2024-02-19 15:10] LABS: Amphetamine,Urine NEGATIVE (NEGATIVE); Barbiturate,Urine NEGATIVE (NEGATIVE); Benzodiazepine,Urine NEGATIVE (NEGATIVE); Cocaine,Urine NEGATIVE (NEGATIVE); Methadone,Urine NEGATIVE (NEGATIVE); Opiate,Urine NEGATIVE (NEGATIVE); PCP,Urine NEGATIVE (NEGATIVE); THC,Urine NEGATIVE (NEGATIVE)
[2024-02-19] MEDS ORDERED: TYLENOL 325 MG ONE (15:19)
[2024-02-19] MEDS ORDERED: MOTRIN 600 MG ONE (15:19)
[2024-02-19] MEDS: TYLENOL 325 MG PO ONE (15:20)
[2024-02-19] MEDS: MOTRIN 600 MG PO ONE (15:20)
[2024-02-19 16:03] VITALS: BP 126/96; PULSE 70; O2SAT 98
== END 2024-02-19 15:55 | disposition home or self-care (01) ==
LOC: ED 12:54
DX: F41.9 Anxiety disorder, unspecified (principal); M54.2 Cervicalgia; E11.9 Type 2 diabetes mellitus without complications; I10 Essential (primary) hypertension; F17.200 Nicotine dependence, unspecified, uncomplicated; Z79.01 Long term (current) use of anticoagulants
CPT/HCPCS: 36415; 80053; 80307; 81001; 82077; 83735; 84484; 85025; 93005; 93041; 96372; 99284; J2060; A9270-GY

== ENCOUNTER 2024-05-31 11:57 | Emergency (ER) | payer OTHER ==
[2024-05-31 12:08] VITALS: TEMP 98.7
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
[2024-05-31] MEDS ORDERED: Norflex 60 MG/2 ML ONE (12:39)
[2024-05-31] MEDS ORDERED: Hydromorphone 1 mg/ml Injection ONE (12:40)
[2024-05-31] MEDS ORDERED: NORCO 5/325 MG ONE ×2 (12:40→12:41)
[2024-05-31] MEDS: NORCO 5/325 MG PO ONE (12:41)
[2024-05-31] MEDS: Norflex 60 MG/2 ML IM ONE (12:43)
[2024-05-31] MEDS: Hydromorphone 1 mg/ml Injection IM ONE (12:43)
[2024-05-31 12:48] VITALS: BP 122/64; PULSE 98; RESP 22; O2SAT 98
== END 2024-05-31 12:48 | disposition home or self-care (01) ==
LOC: ED 11:57
DX: G89.29 Other chronic pain (principal); M54.50 Low back pain, unspecified; M51.369 Other intervertebral disc degeneration, lumbar region without mention of lumbar back pain or lower extremity pain; M19.90 Unspecified osteoarthritis, unspecified site; I10 Essential (primary) hypertension; E11.9 Type 2 diabetes mellitus without complications; Z79.52 Long term (current) use of systemic steroids; Z79.85 Long-term (current) use of injectable non-insulin antidiabetic drugs; Z79.899 Other long term (current) drug therapy; Z72.0 Tobacco use
CPT/HCPCS: 96372; 99283; 99284; J1171; J2360; A9270-GY

== ENCOUNTER 2024-06-01 13:06 | Emergency (ER) | payer OTHER ==
[2024-06-01 16:32] VITALS: RESP 20; TEMP 97.6; O2SAT 98
--- NOTE | 2024-06-01 17:48 | ERPHSYRPT ---
- History of Present Illness Time Seen by Provider: 06/01/24 17:40 Source: patient Exam Limitations: no limitations Patient Subjective Stated Complaint: Back pain Triage Nursing Assessment: Patient ambulated back to ED and transferred self to bed. Patient A+O X 3. Patient's skin pink warm and dry. Patient very erratic. Patient complains of back pain 10/10 to mid back for a few days. Patient was seen in ED yesterday. Physician History: This is a 64-year-old white female patient known to our emergency room for multiple visits in the past for pain control issues. Her primary care provider is Dr. Samuel. Patient arrives by private vehicle with family member waiting outside. Patient is a daily smoker of cigarettes and has a history of substance abuse in the past. She smoked marijuana as recent as 05/30/2024. Patient was seen in our emergency department yesterday complaining of bilateral hip pain and refused a workup. She was given to take home [place] pain pills and given a prescription for Medrol Dosepak. At that visit, the patient did not complain of any back pain. She does states she has not had any falls or acute trauma. Today she has a 10 out of 10 lower back pain patient states that her insurance lapsed and she cannot see her primary care provider or a pain specialist and could not fill prescriptions. Patient is on anticoagulation therapy, she has hypertension, COPD, hyperlipidemia, diabetes, gastroesophageal reflux disease, chronic renal disease, anxiety/panic disorder, depression, migraine headaches, seizure disorder and TIAs. Again, the patient does not want a workup. She has no bowel or urinary incontinence. Timing/Duration: today Method of Injury: other (No trauma fall or injury) Quality: sharp Back Pain Location: paraspinous muscles (Bilateral lumbar level. No spinal tenderness or pain) Associated Symptoms: denies symptoms, lower back pain, muscle spasms, No urinary incontinence, No loss of bowel control, No problems urinating, No numbness in legs/feet, No sensory/motor loss, No tingling in legs/feet Previous symptoms: same symptoms as today, recently seen, recently treated Allergies/Adverse Reactions: lisinopril Allergy (Verified 06/01/24 16:24) Anaphylactic Reaction Home Medications: Albuterol Sulfate [Albuterol Sulfate Hfa] 7 gm IH Q6HPRN PRN 07/28/21 [History] Atorvastatin Calcium [Lipitor] 80 mg PO DAILY 07/28/21 [History] Fluticasone/Vilanterol [Breo Ellipta 100-25 Mcg Inhalr] 1 each IH DAILY 07/28/21 [History] Gabapentin [Neurontin ] 100 mg PO TID 07/28/21 [History] Loratadine 10 mg [Claritin 10 mg] 10 mg PO DAILY 07/28/21 [History] Losartan Potassium 50 mg [Cozaar 50 MG] 100 mg PO DAILY 07/28/21 [History] Semaglutide [Ozempic] 2 mg SQ WEEKLY 01/03/24 [History] Hx Tetanus, Diphtheria Vaccination/Date Given: No Hx Influenza Vaccination/Date Given: Yes Hx Pneumococcal Vaccination/Date Given: Yes Immunizations Up to Date: Yes Travel Risk - International Travel Have you traveled outside of the country in past 3 weeks: No - Emerging Infectious Disease Are you exhibiting symptoms associated with any current EIDs: No - Review of Systems Constitutional: No Symptoms Eyes: No Symptoms Ears, Nose, & Throat: No Symptoms Respiratory: No Symptoms Cardiac: No Symptoms Abdominal/Gastrointestinal: No Symptoms Genitourinary Symptoms: No Symptoms Musculoskeletal: Back Pain (Bilateral paraspinous lumbar level.), Other (No vertebral or spinal tenderness) Skin: No Symptoms Neurological: No Symptoms Psychological: No Symptoms Endocrine: No Symptoms Hematologic/Lymphatic: No Symptoms Immunological/Allergic: No Symptoms All Other Systems: Reviewed and Negative - Past Medical History Pertinent Past Medical History: Yes Neurological History: Migraines, Seizures, TIA ENT History: No Pertinent History Cardiac History: Arrhythmia, Hypertension, Other Respiratory History: COPD, Pneumonia, Sleep Apnea Endocrine Medical History: Diabetes Type II Musculoskeletal History: Osteoarthritis GI Medical History: GERD History: Renal Disease Psycho-Social History: Anxiety, Depression Female Reproductive Disorders: No Pertinent History Other Medical History: depression, anxiety, viri, cardiomyopathy - Past Surgical History Past Surgical History: Yes Neuro Surgical History: No Pertinent History Cardiac: No Pertinent History Respiratory: No Pertinent History Gastrointestinal: Cholecystectomy Genitourinary: No Pertinent History Musculoskeletal: No Pertinent History Female Surgical History: Section Other Surgical History: colonoscopy Significant Family History: no pertinent family hx - Social History Smoking Status: Current every day smoker How long have you smoked: 45 years Exposure to second hand smoke: Yes Drug Use: marijuana Patient Lives Alone: No - Social Determinants of Health Will the patient participate in the screening: Unable to obtain - Nursing Vital Signs Nursing Vital Signs: Initial Vital Signs Temperature 97.6 F 06/01/24 16:26 Pulse Rate 81 06/01/24 16:26 Respiratory Rate 20 06/01/24 16:26 Blood Pressure 174/124 06/01/24 16:26 O2 Sat by Pulse Oximetry 98 06/01/24 16:26 Pain Scale Pain Intensity 10 - Physical Exam General Appearance: no apparent distress, alert, anxiety Eye Exam: PERRL/EOMI, eyes nml inspection Ears, Nose, Throat Exam: normal ENT inspection, moist mucous membranes Neck Exam: normal inspection, non-tender, supple, full range of motion Respiratory Exam: normal breath sounds, lungs clear, airway intact, No chest tenderness, No respiratory distress Cardiovascular Exam: regular rate/rhythm, normal heart sounds, normal peripheral pulses Gastrointestinal Exam: soft, normal bowel sounds, No tenderness Pelvic Exam: not done Rectal Exam: not done Back Exam: normal inspection, normal range of motion, No CVA tenderness, No vertebral tenderness (No step-off or vertebral tenderness to palpation) Extremity Exam: normal inspection, normal range of motion, pelvis stable Neurologic Exam: alert, oriented x 3, cooperative, on air host II-XII nml as tested, nml cerebellar function, nml station & gait, sensation nml Skin Exam: normal color, warm, dry Lymphatic Exam: No adenopathy SpO2 Interpretation: normal SpO2: 98 O2 Delivery: Room Air - Course Nursing assessment & vital signs reviewed: Yes Ordered Tests: Medication Summary Discontinued Medications Generic Name Dose Route Start Last Admin Trade Name Comfort PRN Reason Stop Dose Admin Hydromorphone HCl 1 mg 06/01/24 18:23 Hydromorphone 1 Mg/1ml Inj IM 06/01/24 18:24 STAT ONE Ondansetron HCl 4 mg 06/01/24 18:24 Zofran 4 Mg/Udtablet Orally Disintegrating PO 06/01/24 18:25 STAT ONE - Progress Progress: improved, pain not gone completely Progress Note: 06/01/24 18:32 My medical decision making and the assignment of low complexity with this patient's medical issue today is based on review of the patient's past medical history, review of the patient's medication list, review of patient drug allergy list, history present illness and physical findings on examination. No workup is necessary in this patient. Patient does not want a workup. Patient did not complain of back pain yesterday but had pain in bilateral hips. She has had no trauma or injury to the area. There has been a lapse in her insurance per her report and she has been unable to fill her prescriptions for pain control of her back. Patient does have a history in the past of substance abuse. I did offer her injection of Dilaudid 1 time and oral Zofran and ODT. She is to continue using [id number] Tylenol as well as the Medrol Dosepak she was given yesterday. She is to follow-up as an outpatient with her primary care provider on 06/03/2024. She was told that she will not receive narcotic pain medicine through our emergency department in the next couple of days and we would use other pain control, nonnarcotic regimens to help control her pain if she is unable to contact/make an appointment with her pain specialist or primary care provider. Medical Desision Making - Diagnostic Testing Diagnostic test were ordered, analyzed, and reviewed by me: No - Risk of complications Low Risk: Low risk of morbidity from additional dx testing or treatment - Departure Departure Disposition: Home Clinical Impression: Back pain Condition: Stable Critical Care Time: No Referrals: YOUSUF SAMUEL DO [Primary Care Provider] - Follow up/PCP as directed Additional Instructions: Continue your outpatient medications as prescribed. Call your prescribing p kong and pain specialist on 06/03/2024 to make arrangements for follow-up and for discussion regarding your outpatient chronic pain control.
[2024-06-01] MEDS ORDERED: Hydromorphone 1 mg/ml Injection ONE (18:32)
[2024-06-01] MEDS ORDERED: ZOFRAN ODT 4 MG ONE (18:32)
[2024-06-01] MEDS: Hydromorphone 1 mg/ml Injection IM ONE (18:33)
[2024-06-01] MEDS: ZOFRAN ODT 4 MG PO ONE (18:33)
[2024-06-01 18:46] VITALS: BP 168/92; PULSE 78
== END 2024-06-01 18:47 | disposition home or self-care (01) ==
LOC: ED 13:06
DX: M54.50 Low back pain, unspecified (principal); I10 Essential (primary) hypertension; E78.5 Hyperlipidemia, unspecified; E11.9 Type 2 diabetes mellitus without complications; Z79.01 Long term (current) use of anticoagulants; Z79.85 Long-term (current) use of injectable non-insulin antidiabetic drugs; Z79.899 Other long term (current) drug therapy; Z72.0 Tobacco use
CPT/HCPCS: 96372; 99283; J1171; Q0162

== ENCOUNTER 2024-10-02 13:44 | Observation (INO) | payer OTHER ==
[2024-10-02] MEDS ORDERED: Haldol 5 MG ONE (13:57)
[2024-10-02 14:27] LABS: Absolute Neutrophil Ct (ANC) 7.35 x10^3/uL (1.56-6.13); BASOPHIL % 0.5 % (0.1-1.2); Basophil (Absolute #) 0.06 x10^3/uL (0.01-0.08); Eosinophil (Absolute #) 0 x10^3/uL (0.04-0.36); Hematocrit 32.7 % (34.1-44.9); Hemoglobin 11.4 g/dL (11.2-15.7); IMMATURE GRAN # 0.05 x10^3u/L (0.001-0.031); IMMATURE GRAN % 0.4 % (0.001-0.429); Lymphocyte (Absolute #) 3.22 x10^3/uL (1.18-3.74); Lymphocytes % 26.9 % (19.3-51.7); Mean Cell Volume 89.8 fL (79.4-94.8); Mean Corpuscular Hemoglobin 31.3 pg (25.6-32.2); Mean Corpuscular Hgb Concent. 34.9 g/dL (32.2-35.5); Mean Platelet Volume 11.5 fL (9.4-12.3); Monocyte (Absolute #) 1.31 x10^3/uL (0.24-0.86); Monocytes % 10.9 % (4.7-12.5); Neutrophil % 61.3 % (34.0-71.1); Platelet Count 264 x10^3/uL (182-369); Red Blood Count 3.64 x10^6/uL (3.93-5.22); Red Cell Distribution Width 13.4 % (11.7-14.4)
[2024-10-02 14:39] LABS: ACETAMINOPHEN < 10 ug/ml (10-30); ALBUMIN 5.1 g/dL (3.5-5.0); ALKALINE PHOSPHATASE 81 U/L (38-126); ANION GAP 23.4 MEQ/L (5-15); BLOOD UREA NITROGEN 59 mg/dL (7-17); CHLORIDE 105 mmol/L (98-107); Calcium 9.4 mg/dL (8.4-10.2); Creatinine 1 2.12 mg/dL (0.52-1.04); EST GLOMERULAR FILTRATION RATE 25.9 ML/MIN; ETHYL ALCOHOL < 10 mg/dL (0-10); Glucose 98 mg/dL (74-106); Potassium 4.4 mmol/L (3.5-5.1); SALICYLATE < 1.0 mg/dL (2-20); SGOT/AST 207 U/L (14-36); SGPT/ALT 55 U/L (0-35); SODIUM 139 mmol/L (135-145); Total Protein 7.9 g/dL (6.3-8.2)
[2024-10-02 14:47] LABS: Carbon Dioxide 15 mmol/L (22-30)
[2024-10-02] MEDS: Haldol 5 MG IM ONE (14:57)
[2024-10-02 15:06] LABS: Appearance Clear (Clear); Bilirubin Negative (Negative); Blood Moderate (Negative); Glucose, Urine Negative (Negative); Ketones Trace (Negative); Leukocyte Esterase Negative (Negative); Nitrite Negative (Negative); Protein,Urine Dip 30 (Negative)
[2024-10-02 15:18] LABS: Epithelial Cells Few /HPF (None Seen)
[2024-10-02 15:29] LABS: Bacteria Few /HPF (None Seen); RBC 0-2 /HPF (0-5)
[2024-10-02 15:33] LABS: Amphetamine,Urine NEGATIVE (NEGATIVE); Barbiturate,Urine NEGATIVE (NEGATIVE); Benzodiazepine,Urine NEGATIVE (NEGATIVE); Cocaine,Urine NEGATIVE (NEGATIVE); Methadone,Urine NEGATIVE (NEGATIVE); Opiate,Urine POSITIVE (NEGATIVE); PCP,Urine NEGATIVE (NEGATIVE); THC,Urine POSITIVE (NEGATIVE)
[2024-10-02] MEDS ORDERED: Sodium Chloride 0.9% 1000 ML 1,000 ML ONE (15:37)
[2024-10-02] MEDS: Sodium Chloride 0.9% 1000 ML 1,000 ML IV STA (15:39)
--- NOTE | 2024-10-02 15:47 | ERPHSYRPT ---
- History of Present Illness Time Seen by Provider: 10/02/24 13:47 Source: patient, police Exam Limitations: clinical condition Patient Subjective Stated Complaint: PT HERE FOR BEING MANIC AND PARANOID. PT HAS LONG HISTORY OF MENTAL ILLNESS, Triage Nursing Assessment: PT ALERT, MANIC,UNABLE TO FOLLOW CONVERSATION. SHE KEEPS TALKING PEOPLE AFTER HER, AND HAS TO HIDE HER CHILD FROM PEOPLE, PT ARRIVED PER POLICE Physician History: 64 years old female with history of anxiety/depression, substance abuse, hypertension, hyperlipidemia, COPD presented in the ER via PD with paranoia/psychotic symptoms. Patient is EDed by PD and is here for medical clearance. Patient has flight of ideas/tangential thoughts, pressured speech. Reports decreased oral intake the last few days and has dry lips. Denies any chest pain, vomiting diarrhea or difficulty breathing. Patient has been calling people [employer] that there are people in her attic and also that she has gloss everywhere in her body. Not a good historian and history is limited. Allergies/Adverse Reactions: lisinopril Allergy (Verified 10/02/24 13:48) Anaphylactic Reaction Home Medications: Albuterol Sulfate [Albuterol Sulfate Hfa] 7 gm IH Q6HPRN PRN 07/28/21 [History] Atorvastatin Calcium [Lipitor] 80 mg PO DAILY 07/28/21 [History] Fluticasone/Vilanterol [Breo Ellipta 100-25 Mcg Inhalr] 1 each IH DAILY 07/28/21 [History] Gabapentin [Neurontin ] 100 mg PO TID 07/28/21 [History] Loratadine 10 mg [Claritin 10 mg] 10 mg PO DAILY 07/28/21 [History] Losartan Potassium 50 mg [Cozaar 50 MG] 100 mg PO DAILY 07/28/21 [History] Semaglutide [Ozempic] 2 mg SQ WEEKLY 01/03/24 [History] Hx Tetanus, Diphtheria Vaccination/Date Given: No Hx Influenza Vaccination/Date Given: Yes Hx Pneumococcal Vaccination/Date Given: Yes Immunizations Up to Date: Yes Travel Risk - International Travel Have you traveled outside of the country in past 3 weeks: No - Emerging Infectious Disease Are you exhibiting symptoms associated with any current EIDs: No - Past Medical History Pertinent Past Medical History: Yes Neurological History: Migraines, Seizures, TIA ENT History: No Pertinent History Cardiac History: Arrhythmia, Hypertension, Other Respiratory History: COPD, Pneumonia, Sleep Apnea Endocrine Medical History: Diabetes Type II Musculoskeletal History: Osteoarthritis GI Medical History: GERD History: Renal Disease Psycho-Social History: Anxiety, Depression Female Reproductive Disorders: No Pertinent History Other Medical History: depression, anxiety, viri, cardiomyopathy - Past Surgical History Past Surgical History: Yes Neuro Surgical History: No Pertinent History Cardiac: No Pertinent History Respiratory: No Pertinent History Gastrointestinal: Cholecystectomy Genitourinary: No Pertinent History Musculoskeletal: No Pertinent History Female Surgical History: Section Other Surgical History: colonoscopy Significant Family History: no pertinent family hx - Social History Smoking Status: Current every day smoker How long have you smoked: 45 years Exposure to second hand smoke: Yes Drug Use: marijuana - Social Determinants of Health Will the patient participate in the screening: Unable to obtain - Review of Systems All Other Systems: Unable due to condition - Nursing Vital Signs Nursing Vital Signs: Initial Vital Signs Temperature 97 F 10/02/24 13:48 Pulse Rate 111 H 10/02/24 13:48 Respiratory Rate 20 10/02/24 13:48 Blood Pressure 89/53 10/02/24 13:48 O2 Sat by Pulse Oximetry 97 10/02/24 13:48 Pain Scale Pain Intensity 0 - Physical Exam General Appearance: no apparent distress, alert, anxiety Eyes, Ears, Nose, Throat Exam: dry mucous membranes Neck Exam: normal inspection, full range of motion Respiratory Exam: normal breath sounds, lungs clear Cardiovascular Exam: normal heart sounds, tachycardia Gastrointestinal/Abdominal Exam: soft, normal bowel sounds Extremities Exam: normal inspection, normal range of motion 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: alert, oriented x 3, No normal mood/affect Appearance: disheveled, impaired insight Behavior/Eye Contact/Speech: good eye contact, increased rate of speech Thoughts/Hallucinations: obsessive Skin Exam: normal color SpO2 Interpretation: normal SpO2: 96 O2 Delivery: Room Air Ordered Tests: Active Orders 24 hr Category Date Time Status EKG-ER Only STAT Care 10/02/24 14:02 Active IV Insertion STAT Care 10/02/24 14:02 Active ConsultKhadijah [Psychiatric Consult] STAT Cons 10/02/24 14:09 Active ACETAMINOPHEN Stat Lab 10/02/24 14:25 Completed CBC W DIFF Stat Lab 10/02/24 14:25 Completed CMP Stat Lab 10/02/24 14:25 Completed CULTURE,URINE Stat Lab 10/02/24 15:09 Received ETHYL ALCOHOL Stat Lab 10/02/24 14:25 Completed SALICYLATE Stat Lab 10/02/24 14:25 Completed UA W/RFX UR CULTURE Stat Lab 10/02/24 15:09 Completed Urine Triage Profile Stat Lab 10/02/24 15:09 Completed Medication Summary Discontinued Medications Generic Name Dose Route Start Last Admin Trade Name Cuongq PRN Reason Stop Dose Admin Haloperidol Lactate Confirm 10/02/24 13:57 Haloperidol Lactate 5 Mg/Ml Vial Administered 10/02/24 13:58 Dose 5 mg .ROUTE .STK-MED ONE Haloperidol Lactate 2.5 mg 10/02/24 14:56 10/02/24 14:57 Haloperidol Lactate 5 Mg/Ml Vial IM 10/02/24 14:57 2.5 mg STAT ONE Administration Sodium Chloride 1,000 mls @ 999 mls/hr 10/02/24 14:02 10/02/24 15:39 Sodium Chloride 0.9% 1000 Ml IV 10/02/24 15:02 999 mls/hr .Q1H1M STA Administration Sodium Chloride Confirm 10/02/24 15:37 Sodium Chloride 0.9% 1000 Ml Administered 10/02/24 15:38 Dose 1,000 mls @ ud .ROUTE .STK-MED ONE Lab/Rad Data: Laboratory Result Diagrams 10/02/24 14:25 10/02/24 14:25 Laboratory Results 10/02/24 10/02/24 10/02/24 Range/Units 15:09 15:09 14:25 WBC (3.98-10.04) x10^3/uL RBC (3.93-5.22) x10^6/uL Hgb (11.2-15.7) g/dL Hct (34.1-44.9) % MCV (79.4-94.8) fL MCH (25.6-32.2) pg MCHC (32.2-35.5) g/dL RDW (11.7-14.4) % Plt Count (182-369) x10^3/uL MPV (9.4-12.3) fL Gran % (34.0-71.1) % Immature Gran % (Auto) (0.001-0.429) % Nucleat RBC Rel Count (0.00-0.2) % Eos # (Auto) (0.04-0.36) x10^3/uL Immature Gran # (Auto) (0.001-0.031) x10^3u/L Absolute Lymphs (auto) (1.18-3.74) x10^3/uL Absolute Monos (auto) (0.24-0.86) x10^3/uL Absolute Nucleated RBC (0.00-0.012) x10^3u/L Lymphocytes % (19.3-51.7) % Monocytes % (4.7-12.5) % Eosinophils % (0.7-5.8) % Basophils % (0.1-1.2) % Absolute Granulocytes (1.56-6.13) x10^3/uL Basophils # (0.01-0.08) x10^3/uL Sodium 139 (135-145) mmol/L Potassium 4.4 (3.5-5.1) mmol/L Chloride 105 (98-107) mmol/L Carbon Dioxide 15 L* (22-30) mmol/L Anion Gap 23.4 H (5-15) MEQ/L BUN 59 H (7-17) mg/dL Creatinine 2.12 H (0.52-1.04) mg/dL Estimated GFR 25.9 ML/MIN Glucose 98 (74-106) mg/dL Calcium 9.4 (8.4-10.2) mg/dL Total Bilirubin 1.20 (0.2-1.3) mg/dL AST 207 H (14-36) U/L ALT 55 H (0-35) U/L Alkaline Phosphatase 81 (38-126) U/L Serum Total Protein 7.9 (6.3-8.2) g/dL Albumin 5.1 H (3.5-5.0) g/dL Urine Color Dark Yellow A (Yellow) Urine Appearance Clear (Clear) Urine pH 5.0 (4.6-8.0) Ur Specific [place] 1.020 (1.005-1.030) Urine Protein 30 (Negative) Urine Glucose (UA) Negative (Negative) mg/dL Urine Ketones Trace A (Negative) Urine Blood Moderate A (Negative) Urine Nitrite Negative (Negative) Urine Bilirubin Negative (Negative) Urine Urobilinogen 1.0 A (0.2) mg/dL Ur Leukocyte Esterase Negative (Negative) U Hyaline Cast (Auto) 3-5 A (0-2) /LPF Urine Microscopic RBC 0-2 (0-5) /HPF Urine Microscopic WBC 3-5 (0-5) /HPF Ur Epithelial Cells Few (None Seen) /HPF Urine Bacteria Few A (None Seen) /HPF Urine Culture Reflexed YES (NO) Salicylates < 1.0 L (2-20) mg/dL Urine Opiates Level POSITIVE A (NEGATIVE) Ur Methadone NEGATIVE (NEGATIVE) Acetaminophen < 10 L (10-30) ug/ml Urine Barbiturates NEGATIVE (NEGATIVE) Ur Phencyclidine (PCP) NEGATIVE (NEGATIVE) Urine Amphetamine NEGATIVE (NEGATIVE) U Benzodiazepine Level NEGATIVE (NEGATIVE) Urine Cocaine NEGATIVE (NEGATIVE) Urine Marijuana (THC) POSITIVE A (NEGATIVE) Ethyl Alcohol < 10 (0-10) mg/dL 10/02/24 Range/Units 14:25 WBC 12.0 H (3.98-10.04) x10^3/uL RBC 3.64 L (3.93-5.22) x10^6/uL Hgb 11.4 (11.2-15.7) g/dL Hct 32.7 L (34.1-44.9) % MCV 89.8 (79.4-94.8) fL MCH 31.3 (25.6-32.2) pg MCHC 34.9 (32.2-35.5) g/dL RDW 13.4 (11.7-14.4) % Plt Count 264 (182-369) x10^3/uL MPV 11.5 (9.4-12.3) fL Gran % 61.3 (34.0-71.1) % Immature Gran % (Auto) 0.4 (0.001-0.429) % Nucleat RBC Rel Count 0.0 (0.00-0.2) % Eos # (Auto) 0 L (0.04-0.36) x10^3/uL Immature Gran # (Auto) 0.05 H (0.001-0.031) x10^3u/L Absolute Lymphs (auto) 3.22 (1.18-3.74) x10^3/uL Absolute Monos (auto) 1.31 H (0.24-0.86) x10^3/uL Absolute Nucleated RBC 0.00 (0.00-0.012) x10^3u/L Lymphocytes % 26.9 (19.3-51.7) % Monocytes % 10.9 (4.7-12.5) % Eosinophils % 0.0 L (0.7-5.8) % Basophils % 0.5 (0.1-1.2) % Absolute Granulocytes 7.35 H (1.56-6.13) x10^3/uL Basophils # 0.06 (0.01-0.08) x10^3/uL Sodium (135-145) mmol/L Potassium (3.5-5.1) mmol/L Chloride (98-107) mmol/L Carbon Dioxide (22-30) mmol/L Anion Gap (5-15) MEQ/L BUN (7-17) mg/dL Creatinine (0.52-1.04) mg/dL Estimated GFR ML/MIN Glucose (74-106) mg/dL Calcium (8.4-10.2) mg/dL Total Bilirubin (0.2-1.3) mg/dL AST (14-36) U/L ALT (0-35) U/L Alkaline Phosphatase (38-126) U/L Serum Total Protein (6.3-8.2) g/dL Albumin (3.5-5.0) g/dL Urine Color (Yellow) Urine Appearance (Clear) Urine pH (4.6-8.0) Ur Specific [place] (1.005-1.030) Urine Protein (Negative) Urine Glucose (UA) (Negative) mg/dL Urine Ketones (Negative) Urine Blood (Negative) Urine Nitrite (Negative) Urine Bilirubin (Negative) Urine Urobilinogen (0.2) mg/dL Ur Leukocyte Esterase (Negative) U Hyaline Cast (Auto) (0-2) /LPF Urine Microscopic RBC (0-5) /HPF Urine Microscopic WBC (0-5) /HPF Ur Epithelial Cells (None Seen) /HPF Urine Bacteria (None Seen) /HPF Urine Culture Reflexed (NO) Salicylates (2-20) mg/dL Urine Opiates Level (NEGATIVE) Ur Methadone (NEGATIVE) Acetaminophen (10-30) ug/ml Urine Barbiturates (NEGATIVE) Ur Phencyclidine (PCP) (NEGATIVE) Urine Amphetamine (NEGATIVE) U Benzodiazepine Level (NEGATIVE) Urine Cocaine (NEGATIVE) Urine Marijuana (THC) (NEGATIVE) Ethyl Alcohol (0-10) mg/dL - Progress Progress: improved Progress Note: 10/02/24 15:42 64-year-old with psychiatric history is evaluated in the ER after patient is brought in by PD for medical clearance to be placed in his psych facility for her active psychosis. Patient was very anxious, tangential, pressured speech and is given 2.5 mg IM Haldol which calmed her down. Baseline workup showed normal white count, acute renal failure with a baseline creatinine of 0.9 and today is 2.12, BUN of 59 and a gap of 23 with a glucose of 98. I believe patient has dehydration secondary to decreased oral intake. She cannot be medically cleared, given fluids, discussed with Dr. Pinedo and patient is being admitted for observation until her renal functions/chemistries improve and then patient would be transferred to psychiatric facility for further evaluation and management. Complexity of problem addressed: Moderate acute Complexity of data reviewed/analyzed: Moderate Risk of complication/mortality/morbidity with current conditions: Moderate to high Discussed with Dr.: Other (Dr. Pinedo) Will see patient in: hospital (observation) Counseled pt/family regarding: lab results, diagnosis, need for follow-up Medical Desision Making - Independent Historian Additional History obtained from: Telephone Directory Deliverer/EMT (PD) - Discussion of managment Care discussed with:: hospitalist Reviewed:: Test results Agreed on:: Treatment plan, place in obs Will see patient: in hospital - Diagnostic Testing Diagnostic test were ordered, analyzed, and reviewed by me: Yes - Risk of complications The pt has a mod risk of morbidity or mortality based on: Need for prescription drug management The pt has a high risk of morbidity or mortality based on: Decision regarding h ospitilization or escalation of hosp level of care - Departure Departure Disposition: Observation Clinical Impression: Acute psychosis, Acute renal failure (ARF), Dehydration Condition: Stable Critical Care Time: No Referrals: YOUSUF SAMUEL DO [Primary Care Provider] - Follow up/PCP as directed
--- NOTE | 2024-10-02 16:49 | PCM.HP ---
<YOKASTA BOSCH - Last Filed: 10/02/24 16:44> History of Present Illness - Chief Complaint Chief Complaint: ZAKIA/psychosis Date: 10/02/24 History of Present Illness: is a 64 year old female with a PMHX of of anxiety, depression, dejesus bstance abuse, hypertension, hyperlipidemia, and COPD who was brought to the emergency department by police 10/02/24 for medical clearance prior to psychiatric placement due to active psychosis. On presentation, she exhibited significant agitation, flight of ideas, tangential thoughts, and pressured speech, with paranoid delusions including beliefs of individuals in her attic and abnormal sensations described as having "gloss" throughout her body. During my interview patient is lethargic s/p haloperidol and a poor historian. She reports decreased oral intake over the past several days and diarrhea. She states she was brought in because someone was in her house. She denies chest pain or respiratory distress. Following administration of haloperidol in ED , her agitation improved. Initial laboratory evaluation revealed an acute renal failure, with creatinine elevated from a baseline of 0.9 to 2.12, a BUN of 59, and an anion gap of 23, findings consistent with dehydration. Consequently, she was not medically cleared for psychiatric transfer and has been admitted for observation and fluid resuscitation until her renal function stabilizes, at which point she will be transferred for further psychiatric evaluation and management. - Review of Systems Constitutional: Lethargy Eyes: No Symptoms Ears, Nose, & Throat: No Symptoms Respiratory: No Symptoms Cardiac: No Symptoms Abdominal/Gastrointestinal: Abdominal Pain, Diarrhea Genitourinary Symptoms: No Symptoms Musculoskeletal: No Symptoms Skin: No Symptoms Neurological: No Symptoms Psychological: Anxiety, Depression, Hallucinations Endocrine: No Symptoms Hematologic/Lymphatic: No Symptoms Immunological/Allergic: No Symptoms Medications & Allergies Home Medications: Home Medication List Albuterol Sulfate [Albuterol Sulfate Hfa] 7 gm IH Q6HPRN PRN 07/28/21 [History Confirmed 02/19/24] Atorvastatin Calcium [Lipitor] 80 mg PO DAILY 07/28/21 [History Confirmed 10/02/24] Fluticasone/Vilanterol [Breo Ellipta 100-25 Mcg Inhalr] 1 each IH DAILY 07/28/21 [History Confirmed 10/02/24] Gabapentin [Neurontin ] 100 mg PO TID 07/28/21 [History Confirmed 10/02/24] Loratadine 10 mg [Claritin 10 mg] 10 mg PO DAILY 07/28/21 [History Confirmed 02/19/24] Losartan Potassium 50 mg [Cozaar 50 MG] 100 mg PO DAILY 07/28/21 [History Confirmed 10/02/24] Clopidogrel Bisulfate [Clopidogrel] 75 mg PO DAILY #0 08/04/21 [Rx Confirmed 10/02/24] Cyclobenzaprine HCl 10 mg [Flexeril 10 MG] 10 mg PO BID 10 Days #20 tablet 07/02/22 [Rx Confirmed 10/02/24] Semaglutide [Ozempic] 2 mg SQ WEEKLY 01/03/24 [History Confirmed 10/02/24] Methylprednisolone Packet [Medrol Dosepack] 4 mg PO UD #30 packet 05/31/24 [Rx] Allergies/Adverse Reactions: Allergies Allergy/AdvReac Type Severity Reaction Status Date / Time lisinopril Allergy Anaphylactic Verified 10/02/24 13:48 Reaction - Past Medical History Past Medical History: Yes Neurological History: Migraines, Seizures, TIA ENT History: No Pertinent History Cardiac History: Arrhythmia, Hypertension, Other Respiratory History: COPD, Pneumonia, Sleep Apnea Endocrine Medical History: Diabetes Type II Musculoskelatal History: Osteoarthritis GI Medical History: GERD History: Renal Disease Pyscho-Social History: Anxiety, Depression Reproductive Disorders: No Pertinent History Comment: depression, anxiety, viri, cardiomyopathy - Past Surgical History Past Surgical History: Yes Neuro Surgical History: No Pertinent History Cardiac History: No Pertinent History Respiratory Surgery: No Pertinent History GI Surgical History: Cholecystectomy Genitourinary Surgical Hx: No Pertinent History Musculskeletal Surgical Hx: No Pertinent History Female Surgical History: Section Other Surgical History: colonoscopy Significant Family History: no pertinent family hx - Social History Smoking Status: Current every day smoker How long have you smoked: 45 years Exposure to second hand smoke: Yes Alcohol: None Drug Use: marijuana - Social Determinants of Health Will the patient participate in the screening: Unable to obtain - Physical Exam Vital Signs: Vital Signs - 24 hr Temp Pulse Resp BP BP Pulse Ox 10/02/24 16:27 76 15 123/63 96 10/02/24 15:51 96 10/02/24 15:10 70 18 96 10/02/24 14:30 123/72 10/02/24 13:52 89/53 10/02/24 13:48 97 F 111 H 20 89/53 97 General Appearance: no apparent distress, thin Neurologic Exam: cooperative, other (lethargic) Neck Exam: normal inspection Respiratory Exam: normal breath sounds, lungs clear Cardiovascular Exam: regular rate/rhythm, normal heart sounds Gastrointestinal/Abdomen Exam: tenderness (LLQ) Pelvic Exam: not done Rectal Exam: deferred Back Exam: normal inspection Extremity Exam: normal inspection Skin Exam: normal color Results - Labs Lab/Micro Results: Lab Results-Last 24 Hours 10/02/24 10/02/24 10/02/24 Range/Units 14:25 14:25 15:09 WBC 12.0 H (3.98-10.04) x10^3/uL RBC 3.64 L (3.93-5.22) x10^6/uL Hgb 11.4 (11.2-15.7) g/dL Hct 32.7 L (34.1-44.9) % MCV 89.8 (79.4-94.8) fL MCH 31.3 (25.6-32.2) pg MCHC 34.9 (32.2-35.5) g/dL RDW 13.4 (11.7-14.4) % Plt Count 264 (182-369) x10^3/uL MPV 11.5 (9.4-12.3) fL Gran % 61.3 (34.0-71.1) % Immature Gran % (Auto) 0.4 (0.001-0.429) % Nucleat RBC Rel Count 0.0 (0.00-0.2) % Eos # (Auto) 0 L (0.04-0.36) x10^3/uL Immature Gran # (Auto) 0.05 H (0.001-0.031) x10^3u/L Absolute Lymphs (auto) 3.22 (1.18-3.74) x10^3/uL Absolute Monos (auto) 1.31 H (0.24-0.86) x10^3/uL Absolute Nucleated RBC 0.00 (0.00-0.012) x10^3u/L Lymphocytes % 26.9 (19.3-51.7) % Monocytes % 10.9 (4.7-12.5) % Eosinophils % 0.0 L (0.7-5.8) % Basophils % 0.5 (0.1-1.2) % Absolute Granulocytes 7.35 H (1.56-6.13) x10^3/uL Basophils # 0.06 (0.01-0.08) x10^3/uL Sodium 139 (135-145) mmol/L Potassium 4.4 (3.5-5.1) mmol/L Chloride 105 (98-107) mmol/L Carbon Dioxide 15 L* (22-30) mmol/L Anion Gap 23.4 H (5-15) MEQ/L BUN 59 H (7-17) mg/dL Creatinine 2.12 H (0.52-1.04) mg/dL Estimated GFR 25.9 ML/MIN Glucose 98 (74-106) mg/dL Calcium 9.4 (8.4-10.2) mg/dL Total Bilirubin 1.20 (0.2-1.3) mg/dL AST 207 H (14-36) U/L ALT 55 H (0-35) U/L Alkaline Phosphatase 81 (38-126) U/L Serum Total Protein 7.9 (6.3-8.2) g/dL Albumin 5.1 H (3.5-5.0) g/dL Urine Color Dark Yellow A (Yellow) Urine Appearance Clear (Clear) Urine pH 5.0 (4.6-8.0) Ur Specific [place] 1.020 (1.005-1.030) Urine Protein 30 (Negative) Urine Glucose (UA) Negative (Negative) mg/dL Urine Ketones Trace A (Negative) Urine Blood Moderate A (Negative) Urine Nitrite Negative (Negative) Urine Bilirubin Negative (Negative) Urine Urobilinogen 1.0 A (0.2) mg/dL Ur Leukocyte Esterase Negative (Negative) U Hyaline Cast (Auto) 3-5 A (0-2) /LPF Urine Microscopic RBC 0-2 (0-5) /HPF Urine Microscopic WBC 3-5 (0-5) /HPF Ur Epithelial Cells Few (None Seen) /HPF Urine Bacteria Few A (None Seen) /HPF Urine Culture Reflexed YES (NO) Salicylates < 1.0 L (2-20) mg/dL Urine Opiates Level (NEGATIVE) Ur Methadone (NEGATIVE) Acetaminophen < 10 L (10-30) ug/ml Urine Barbiturates (NEGATIVE) Ur Phencyclidine (PCP) (NEGATIVE) Urine Amphetamine (NEGATIVE) U Benzodiazepine Level (NEGATIVE) Urine Cocaine (NEGATIVE) Urine Marijuana (THC) (NEGATIVE) Ethyl Alcohol < 10 (0-10) mg/dL 10/02/24 Range/Units 15:09 WBC (3.98-10.04) x10^3/uL RBC (3.93-5.22) x10^6/uL Hgb (11.2-15.7) g/dL Hct (34.1-44.9) % MCV (79.4-94.8) fL MCH (25.6-32.2) pg MCHC (32.2-35.5) g/dL RDW (11.7-14.4) % Plt Count (182-369) x10^3/uL MPV (9.4-12.3) fL Gran % (34.0-71.1) % Immature Gran % (Auto) (0.001-0.429) % Nucleat RBC Rel Count (0.00-0.2) % Eos # (Auto) (0.04-0.36) x10^3/uL Immature Gran # (Auto) (0.001-0.031) x10^3u/L Absolute Lymphs (auto) (1.18-3.74) x10^3/uL Absolute Monos (auto) (0.24-0.86) x10^3/uL Absolute Nucleated RBC (0.00-0.012) x10^3u/L Lymphocytes % (19.3-51.7) % Monocytes % (4.7-12.5) % Eosinophils % (0.7-5.8) % Basophils % (0.1-1.2) % Absolute Granulocytes (1.56-6.13) x10^3/uL Basophils # (0.01-0.08) x10^3/uL Sodium (135-145) mmol/L Potassium (3.5-5.1) mmol/L Chloride (98-107) mmol/L Carbon Dioxide (22-30) mmol/L Anion Gap (5-15) MEQ/L BUN (7-17) mg/dL Creatinine (0.52-1.04) mg/dL Estimated GFR ML/MIN Glucose (74-106) mg/dL Calcium (8.4-10.2) mg/dL Total Bilirubin (0.2-1.3) mg/dL AST (14-36) U/L ALT (0-35) U/L Alkaline Phosphatase (38-126) U/L Serum Total Protein (6.3-8.2) g/dL Albumin (3.5-5.0) g/dL Urine Color (Yellow) Urine Appearance (Clear) Urine pH (4.6-8.0) Ur Specific [place] (1.005-1.030) Urine Protein (Negative) Urine Glucose (UA) (Negative) mg/dL Urine Ketones (Negative) Urine Blood (Negative) Urine Nitrite (Negative) Urine Bilirubin (Negative) Urine Urobilinogen (0.2) mg/dL Ur Leukocyte Esterase (Negative) U Hyaline Cast (Auto) (0-2) /LPF Urine Microscopic RBC (0-5) /HPF Urine Microscopic WBC (0-5) /HPF Ur Epithelial Cells (None Seen) /HPF Urine Bacteria (None Seen) /HPF Urine Culture Reflexed (NO) Salicylates (2-20) mg/dL Urine Opiates Level POSITIVE A (NEGATIVE) Ur Methadone NEGATIVE (NEGATIVE) Acetaminophen (10-30) ug/ml Urine Barbiturates NEGATIVE (NEGATIVE) Ur Phencyclidine (PCP) NEGATIVE (NEGATIVE) Urine Amphetamine NEGATIVE (NEGATIVE) U Benzodiazepine Level NEGATIVE (NEGATIVE) Urine Cocaine NEGATIVE (NEGATIVE) Urine Marijuana (THC) POSITIVE A (NEGATIVE) Ethyl Alcohol (0-10) mg/dL Assessment/Plan (1) Acute renal failure (ARF) Current Visit: Yes Status: Acute Assessment & Plan: -Most likely secondary to hypovolemia from poor oral intake -creatinine elevated from a baseline of 0.9 to 2.12 -IVF -monitor renal/lytes -avoid nephrotoxic meds (2) Acute psychosis Current Visit: Yes Status: Acute Assessment & Plan: -Patient has been accepted to psych facility once medically stable -Haldol given in ED -Lorazepam 1mg q4H prn for agitation -UDS reviewed and positive for opiates and THC -CT head Code(s): F23 - BRIEF PSYCHOTIC DISORDER (3) HLD (hyperlipidemia) Current Visit: Yes Status: Acute Assessment & Plan: -continue home meds once available Code(s): E78.5 - HYPERLIPIDEMIA, UNSPECIFIED (4) Dehydration Current Visit: Yes Status: Acute Assessment & Plan: -see ZAKIA above Code(s): E86.0 - DEHYDRATION (5) High anion gap metabolic acidosis Current Visit: Yes Status: Acute Assessment & Plan: -IVF -Sodium bicarb drip -Co2 level at 15- recheck in 4 hours - titrate drip accordingly Code(s): E87.29 - OTHER ACIDOSIS (6) COPD (chronic obstructive pulmonary disease) Current Visit: No Status: Chronic Qualifiers: COPD type: chronic bronchitis Chronic bronchitis type: unspecified Qualified Code(s): J42 - Unspecified chronic bronchitis Assessment & Plan: -On RA -Supplemental oxygen to maintain spo2 > 91% -Nebs/INH prn (7) Diarrhea Current Visit: Yes Status: Acute Assessment & Plan: -supportive care -cdiff/stool studies Code(s): R19.7 - DIARRHEA, UNSPECIFIED (8) Hypertension Current Visit: No Status: Chronic Qualifiers: Hypertension type: primary hypertension Qualified Code(s): I10 - Essential (primary) hypertension Assessment & Plan: -stable - continue to monitor - somewhat soft will hold bp meds for now VTE: SCD PPI: protonix Dispo: 1-2 days Code status: Full code Code(s): I10 - ESSENTIAL (PRIMARY) HYPERTENSION Telemedicine Encounter - Telemedicine Encounter Telemedicine Encounter: "The entirety of this encounter was performed via Telemedicine" This visit was performed using real-time audio and video connection between my location and thepatients locationwith the assistance of a surrogateat the patients location. Written or verbal consent was obtained from the patient/guardian to perform this visit using[facility] technology. Any patient questions regarding the telemedicine interaction were answered. <RODRICK BRICE - Last Filed: 10/02/24 21:03> History of Present Illness - Chief Complaint History of Present Illness: is a 64 year old female. - Physical Exam Vital Signs: Vital Signs - 24 hr Temp Pulse Resp BP BP Pulse Ox 10/02/24 18:00 98.2 F 82 18 117/58 92 L 10/02/24 17:13 97.6 F 82 18 117/58 96 10/02/24 16:45 97.6 F 84 16 117/58 96 10/02/24 16:37 97.6 F 84 16 117/58 96 10/02/24 16:27 76 15 123/63 96 10/02/24 15:51 96 10/02/24 15:10 70 18 96 10/02/24 14:30 123/72 10/02/24 13:52 89/53 10/02/24 13:48 97 F 111 H 20 89/53 97 Results - Labs Lab/Micro Results: Lab Results-Last 24 Hours 10/02/24 10/02/24 10/02/24 Range/Units 14:25 14:25 15:09 WBC 12.0 H (3.98-10.04) x10^3/uL RBC 3.64 L (3.93-5.22) x10^6/uL Hgb 11.4 (11.2-15.7) g/dL Hct 32.7 L (34.1-44.9) % MCV 89.8 (79.4-94.8) fL MCH 31.3 (25.6-32.2) pg MCHC 34.9 (32.2-35.5) g/dL RDW 13.4 (11.7-14.4) % Plt Count 264 (182-369) x10^3/uL MPV 11.5 (9.4-12.3) fL Gran % 61.3 (34.0-71.1) % Immature Gran % (Auto) 0.4 (0.001-0.429) % Nucleat RBC Rel Count 0.0 (0.00-0.2) % Eos # (Auto) 0 L (0.04-0.36) x10^3/uL Immature Gran # (Auto) 0.05 H (0.001-0.031) x10^3u/L Absolute Lymphs (auto) 3.22 (1.18-3.74) x10^3/uL Absolute Monos (auto) 1.31 H (0.24-0.86) x10^3/uL Absolute Nucleated RBC 0.00 (0.00-0.012) x10^3u/L Lymphocytes % 26.9 (19.3-51.7) % Monocytes % 10.9 (4.7-12.5) % Eosinophils % 0.0 L (0.7-5.8) % Basophils % 0.5 (0.1-1.2) % Absolute Granulocytes 7.35 H (1.56-6.13) x10^3/uL Basophils # 0.06 (0.01-0.08) x10^3/uL Sodium 139 (135-145) mmol/L Potassium 4.4 (3.5-5.1) mmol/L Chloride 105 (98-107) mmol/L Carbon Dioxide 15 L* (22-30) mmol/L Anion Gap 23.4 H (5-15) MEQ/L BUN 59 H (7-17) mg/dL Creatinine 2.12 H (0.52-1.04) mg/dL Estimated GFR 25.9 ML/MIN Glucose 98 (74-106) mg/dL Hemoglobin A1c (4.5-6.0) % Calcium 9.4 (8.4-10.2) mg/dL Total Bilirubin 1.20 (0.2-1.3) mg/dL AST 207 H (14-36) U/L ALT 55 H (0-35) U/L Alkaline Phosphatase 81 (38-126) U/L Ammonia (9-30) umol/L Serum Total Protein 7.9 (6.3-8.2) g/dL Albumin 5.1 H (3.5-5.0) g/dL TSH 3rd Generation (0.470-4.680) mIU/L Urine Color Dark Yellow A (Yellow) Urine Appearance Clear (Clear) Urine pH 5.0 (4.6-8.0) Ur Specific [place] 1.020 (1.005-1.030) Urine Protein 30 (Negative) Urine Glucose (UA) Negative (Negative) mg/dL Urine Ketones Trace A (Negative) Urine Blood Moderate A (Negative) Urine Nitrite Negative (Negative) Urine Bilirubin Negative (Negative) Urine Urobilinogen 1.0 A (0.2) mg/dL Ur Leukocyte Esterase Negative (Negative) U Hyaline Cast (Auto) 3-5 A (0-2) /LPF Urine Microscopic RBC 0-2 (0-5) /HPF Urine Microscopic WBC 3-5 (0-5) /HPF Ur Epithelial Cells Few (None Seen) /HPF Urine Bacteria Few A (None Seen) /HPF Urine Culture Reflexed YES (NO) Salicylates < 1.0 L (2-20) mg/dL Urine Opiates Level (NEGATIVE) Ur Methadone (NEGATIVE) Acetaminophen < 10 L (10-30) ug/ml Urine Barbiturates (NEGATIVE) Ur Phencyclidine (PCP) (NEGATIVE) Urine Amphetamine (NEGATIVE) U Benzodiazepine Level (NEGATIVE) Urine Cocaine (NEGATIVE) Urine Marijuana (THC) (NEGATIVE) Ethyl Alcohol < 10 (0-10) mg/dL 10/02/24 10/02/24 10/02/24 Range/Units 15:09 18:05 18:05 WBC (3.98-10.04) x10^3/uL RBC (3.93-5.22) x10^6/uL Hgb (11.2-15.7) g/dL Hct (34.1-44.9) % MCV (79.4-94.8) fL MCH (25.6-32.2) pg MCHC (32.2-35.5) g/dL RDW (11.7-14.4) % Plt Count (182-369) x10^3/uL MPV (9.4-12.3) fL Gran % (34.0-71.1) % Immature Gran % (Auto) (0.001-0.429) % Nucleat RBC Rel Count (0.00-0.2) % Eos # (Auto) (0.04-0.36) x10^3/uL Immature Gran # (Auto) (0.001-0.031) x10^3u/L Absolute Lymphs (auto) (1.18-3.74) x10^3/uL Absolute Monos (auto) (0.24-0.86) x10^3/uL Absolute Nucleated RBC (0.00-0.012) x10^3u/L Lymphocytes % (19.3-51.7) % Monocytes % (4.7-12.5) % Eosinophils % (0.7-5.8) % Basophils % (0.1-1.2) % Absolute Granulocytes (1.56-6.13) x10^3/uL Basophils # (0.01-0.08) x10^3/uL Sodium 139 (135-145) mmol/L Potassium 3.2 L D (3.5-5.1) mmol/L Chloride 108 H (98-107) mmol/L Carbon Dioxide 19 L (22-30) mmol/L Anion Gap 14.4 (5-15) MEQ/L BUN 51 H (7-17) mg/dL Creatinine 1.50 H (0.52-1.04) mg/dL Estimated GFR 39.2 ML/MIN Glucose 135 H (74-106) mg/dL Hemoglobin A1c (4.5-6.0) % Calcium 8.3 L (8.4-10.2) mg/dL Total Bilirubin 0.80 (0.2-1.3) mg/dL AST 162 H (14-36) U/L ALT 43 H (0-35) U/L Alkaline Phosphatase 67 (38-126) U/L Ammonia (9-30) umol/L Serum Total Protein 6.3 (6.3-8.2) g/dL Albumin 4.0 (3.5-5.0) g/dL TSH 3rd Generation 0.475 (0.470-4.680) mIU/L Urine Color (Yellow) Urine Appearance (Clear) Urine pH (4.6-8.0) Ur Specific [place] (1.005-1.030) Urine Protein (Negative) Urine Glucose (UA) (Negative) mg/dL Urine Ketones (Negative) Urine Blood (Negative) Urine Nitrite (Negative) Urine Bilirubin (Negative) Urine Urobilinogen (0.2) mg/dL Ur Leukocyte Esterase (Negative) U Hyaline Cast (Auto) (0-2) /LPF Urine Microscopic RBC (0-5) /HPF Urine Microscopic WBC (0-5) /HPF Ur Epithelial Cells (None Seen) /HPF Urine Bacteria (None Seen) /HPF Urine Culture Reflexed (NO) Salicylates (2-20) mg/dL Urine Opiates Level POSITIVE A (NEGATIVE) Ur Methadone NEGATIVE (NEGATIVE) Acetaminophen (10-30) ug/ml Urine Barbiturates NEGATIVE (NEGATIVE) Ur Phencyclidine (PCP) NEGATIVE (NEGATIVE) Urine Amphetamine NEGATIVE (NEGATIVE) U Benzodiazepine Level NEGATIVE (NEGATIVE) Urine Cocaine NEGATIVE (NEGATIVE) Urine Marijuana (THC) POSITIVE A (NEGATIVE) Ethyl Alcohol (0-10) mg/dL 10/02/24 10/02/24 Range/Units 18:05 Unknown WBC (3.98-10.04) x10^3/uL RBC (3.93-5.22) x10^6/uL Hgb (11.2-15.7) g/dL Hct (34.1-44.9) % MCV (79.4-94.8) fL MCH (25.6-32.2) pg MCHC (32.2-35.5) g/dL RDW (11.7-14.4) % Plt Count (182-369) x10^3/uL MPV (9.4-12.3) fL Gran % (34.0-71.1) % Immature Gran % (Auto) (0.001-0.429) % Nucleat RBC Rel Count (0.00-0.2) % Eos # (Auto) (0.04-0.36) x10^3/uL Immature Gran # (Auto) (0.001-0.031) x10^3u/L Absolute Lymphs (auto) (1.18-3.74) x10^3/uL Absolute Monos (auto) (0.24-0.86) x10^3/uL Absolute Nucleated RBC (0.00-0.012) x10^3u/L Lymphocytes % (19.3-51.7) % Monocytes % (4.7-12.5) % Eosinophils % (0.7-5.8) % Basophils % (0.1-1.2) % Absolute Granulocytes (1.56-6.13) x10^3/uL Basophils # (0.01-0.08) x10^3/uL Sodium (135-145) mmol/L Potassium (3.5-5.1) mmol/L Chloride (98-107) mmol/L Carbon Dioxide (22-30) mmol/L Anion Gap (5-15) MEQ/L BUN (7-17) mg/dL Creatinine (0.52-1.04) mg/dL Estimated GFR ML/MIN Glucose (74-106) mg/dL Hemoglobin A1c 4.69 (4.5-6.0) % Calcium (8.4-10.2) mg/dL Total Bilirubin (0.2-1.3) mg/dL AST (14-36) U/L ALT (0-35) U/L Alkaline Phosphatase (38-126) U/L Ammonia 10 (9-30) umol/L Serum Total Protein (6.3-8.2) g/dL Albumin (3.5-5.0) g/dL TSH 3rd Generation (0.470-4.680) mIU/L Urine Color (Yellow) Urine Appearance (Clear) Urine pH (4.6-8.0) Ur Specific [place] (1.005-1.030) Urine Protein (Negative) Urine Glucose (UA) (Negative) mg/dL Urine Ketones (Negative) Urine Blood (Negative) Urine Nitrite (Negative) Urine Bilirubin (Negative) Urine Urobilinogen (0.2) mg/dL Ur Leukocyte Esterase (Negative) U Hyaline Cast (Auto) (0-2) /LPF Urine Microscopic RBC (0-5) /HPF Urine Microscopic WBC (0-5) /HPF Ur Epithelial Cells (None Seen) /HPF Urine Bacteria (None Seen) /HPF Urine Culture Reflexed (NO) Salicylates (2-20) mg/dL Urine Opiates Level (NEGATIVE) Ur Methadone (NEGATIVE) Acetaminophen (10-30) ug/ml Urine Barbiturates (NEGATIVE) Ur Phencyclidine (PCP) (NEGATIVE) Urine Amphetamine (NEGATIVE) U Benzodiazepine Level (NEGATIVE) Urine Cocaine (NEGATIVE) Urine Marijuana (THC) (NEGATIVE) Ethyl Alcohol (0-10) mg/dL - Radiology Impressions Radiology Exams & Impressions: Radiology Procedures Category Date Time Status HEAD WITHOUT CONTRAST [CT] Routine Exams 10/02/24 17:09 Taken Telemedicine Encounter - Telemedicine Encounter Telemedicine Encounter: "The entirety of this encounter was performed via Telemedicine" This visit was performed using real-time audio and video connection between my location and thepatients locationwith the assistance of a surrogateat the patients location. Written or verbal consent was obtained from the patient/guardian to perform this visit usingsynchrSolarNOWtelemedicine technology. Any patient questions regarding the telemedicine interaction were answered. TAYE Encounter - TAYE Encounter Attestation TAYE Encounter Attestation: "KelleylysJULIA Simon andjosuéiscussed pertinent aspects of their care with Yokasta Esqueda agree with the history, physical exam (any modifications based on my personal exam will be noted below), assessment, and plan as outlined in original note. Please see immediately below for my summary of findings and additional assessment and plan along with any meaningful corrections/explanations to the Subjective/Objective portions of the TAYE note will be noted." My portion of the encounter took place via telemedicine. -Patient with h/o anxiety, depression, substance abuse presenting with acute psychosis with utox positive for opiates and marijuana. Found to have ZAKIA. Patient already has a bed at [facility] but admitted for medical clearance due to ZAKIA. Will give fluids, ativan or haldol PRN for agitation.
[2024-10-02] MEDS ORDERED: DUONEB 0.5-3 MG/3 ml Neb IH PRN ×2 (17:09→17:18)
[2024-10-02] MEDS ORDERED: Zofran 4 MG/2 ML VIAL IV PRN (17:09)
[2024-10-02] MEDS ORDERED: Ativan 2 MG/1 ML VIAL IV PRN (17:14)
[2024-10-02] MEDS: Sodium Bicarbonate 50 MEQ/50 ML VIAL*** 150 MEQ in Dextrose 5%/Water IV Soln. 1000 ML 1... IV SCH (18:06)
[2024-10-02 18:30] LABS: ANION GAP 14.4 MEQ/L (5-15); BILIRUBIN,TOTAL 0.8 mg/dL (0.2-1.3); Calcium 8.3 mg/dL (8.4-10.2); Creatinine 1 1.5 mg/dL (0.52-1.04); EST GLOMERULAR FILTRATION RATE 39.2 ML/MIN; Total Protein 6.3 g/dL (6.3-8.2)
[2024-10-02 18:33] LABS: Potassium 3.2 mmol/L (3.5-5.1)
[2024-10-02] MEDS: Klor Con PO SCH (20:39)
[2024-10-02] MEDS: Sodium Chloride 0.9% 1000 ML 1,000 ML IV SCH (21:04)
[2024-10-03 05:47] LABS: Absolute Neutrophil Ct (ANC) 4.73 x10^3/uL (1.56-6.13); BASOPHIL % 0.5 % (0.1-1.2); Basophil (Absolute #) 0.04 x10^3/uL (0.01-0.08); Eosinophil % 0.6 % (0.7-5.8); Eosinophil (Absolute #) 0.05 x10^3/uL (0.04-0.36); Hematocrit 28.5 % (34.1-44.9); Hemoglobin 9.7 g/dL (11.2-15.7); IMMATURE GRAN # 0.02 x10^3u/L (0.001-0.031); IMMATURE GRAN % 0.3 % (0.001-0.429); Lymphocyte (Absolute #) 2.36 x10^3/uL (1.18-3.74); Lymphocytes % 30.1 % (19.3-51.7); Mean Cell Volume 92.2 fL (79.4-94.8); Mean Corpuscular Hemoglobin 31.4 pg (25.6-32.2); Mean Platelet Volume 11.8 fL (9.4-12.3); Monocyte (Absolute #) 0.64 x10^3/uL (0.24-0.86); Monocytes % 8.2 % (4.7-12.5); Neutrophil % 60.3 % (34.0-71.1); Platelet Count 177 x10^3/uL (182-369); Red Blood Count 3.09 x10^6/uL (3.93-5.22); Red Cell Distribution Width 13.9 % (11.7-14.4); White Blood Count 7.8 x10^3/uL (3.98-10.04)
[2024-10-03 06:04] LABS: ALBUMIN 3.4 g/dL (3.5-5.0); ANION GAP 13.5 MEQ/L (5-15); BILIRUBIN,TOTAL 1.1 mg/dL (0.2-1.3); Calcium 7.9 mg/dL (8.4-10.2); Creatinine 1 0.81 mg/dL (0.52-1.04); Total Protein 5.7 g/dL (6.3-8.2)
[2024-10-03 06:11] LABS: Potassium 4.1 mmol/L (3.5-5.1)
[2024-10-03] MEDS: Advair Hfa 115/21 Common canister IH SCH (08:00)
[2024-10-03] MEDS: Spiriva 18 Mcg/Cap Inhaler IH SCH (08:00)
[2024-10-03] MEDS ORDERED: Advair Hfa 115/21 Common canister IH SCH (08:00)
[2024-10-03] MEDS ORDERED: Spiriva 18 Mcg/Cap Inhaler IH ONE (08:01)
[2024-10-03] MEDS: SODIUM BICARBONATE PO STA (08:11)
--- NOTE | 2024-10-03 08:37 | XRAY ---
Indication: Altered mental status. Multiple contiguous axial images obtained through the head without contrast. Comparison: April 14, 2021 Again age-appropriate global atrophy and minimal periventricular degenerative micro-ischemia. 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 No acute intracranial hemorrhage, abnormal extra-axial fluid collection, or mass effect. Fourth ventricle is midline without hydrocephalus. Haile-white matter differentiation preserved. Bony calvarium intact. Visualized paranasal sinuses and mastoid air cells are clear. Impression: Again nonacute senile brain. 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
[2024-10-03] MEDS ORDERED: NON-FORMULARY ITEM (Fluticasone/Vilanterol [Breo Ellipta 100-25 Mcg Inhalr] 1 EACH Blst.W. IH SCH (10:00)
[2024-10-03] MEDS ORDERED: NON-FORMULARY ITEM (Atorvastatin Calcium [Lipitor] 80 MG Tablet) PO SCH (10:00)
[2024-10-03] MEDS ORDERED: Nicoderm CQ 21 MG ONE (10:50)
[2024-10-03] MEDS ORDERED: TYLENOL 325 MG ONE (10:50)
[2024-10-03] MEDS: TYLENOL 325 MG PO PRN (10:54)
[2024-10-03] MEDS: Nicoderm CQ 21 MG TOP SCH (10:55)
[2024-10-03] MEDS: Cozaar 50 MG PO SCH (10:56)
[2024-10-03] MEDS: Protonix 40MG Tablet PO SCH (10:56)
[2024-10-03] MEDS: LIPITOR 40MG PO SCH (10:56)
[2024-10-03] MEDS: PLAVIX Tablet PO SCH (10:56)
--- NOTE | 2024-10-03 14:38 | PCM.NOTE ---
Date and Time: 10/03/24 1436 Subjective Assessment: HPI: is a 64 year old female with a PMHX of of anxiety, depression, substance abuse, hypertension, hyperlipidemia, and COPD who was brought to the emergency department by police 10/02/24 for medical clearance prior to psychiatric placement due to active psychosis. On presentation, she exhibited significant agitation, flight of ideas, tangential thoughts, and pressured speech, with paranoid delusions including beliefs of individuals in her attic and abnormal sensations described as having "gloss" throughout her body. During my interview patient is lethargic s/p haloperidol and a poor historian. She reports decreased oral intake over the past several days and diarrhea. She states she was brought in because someone was in her house. She denies chest pain or respiratory distress. Following administration of haloperidol in ED , her agitation improved. Initial laboratory evaluation revealed an acute renal failure, with creatinine elevated from a baseline of 0.9 to 2.12, a BUN of 59, and an anion gap of 23, findings consistent with dehydration. Consequently, she was not medically cleared for psychiatric transfer and has been admitted for observation and fluid resuscitation until her renal function stabilizes, at which point she will be transferred for further psychiatric evaluation and management. 10/03/24: Met with patient bedside. She is now tolerating oral intake, with resolution of her acute kidney injury. However, she continues to exhibit paranoid delusions, expressing fears of being poisoned at home and reporting hallucinations of people emerging from the ceiling to lawson her. Given the persistence of these symptoms, she is awaiting transfer to [facility] for inpatient psychiatric evaluation and management, pending re-assessment. From a medical standpoint, she remains stable and appropriate for transfer. - Review of Systems Constitutional: No Symptoms Eyes: No Symptoms Ears, Nose, & Throat: No Symptoms Respiratory: No Symptoms Cardiac: No Symptoms Abdominal/Gastrointestinal: No Symptoms Genitourinary Symptoms: No Symptoms Musculoskeletal: Back Pain Skin: No Symptoms Neurological: No Symptoms Psychological: Hallucinations Endocrine: No Symptoms Hematologic/Lymphatic: No Symptoms Immunological/Allergic: No Symptoms Objective Exam General Appearance: no apparent distress Neurologic Exam: alert, confusion, other Skin Exam: normal color Eye Exam: PERRL Ears, Nose, Throat Exam: normal ENT inspection Neck Exam: normal inspection Respiratory Exam: normal breath sounds, lungs clear Cardiovascular Exam: regular rate/rhythm, normal heart sounds Gastrointestinal/Abdomen Exam: soft, normal bowel sounds Extremity Exam: normal inspection Back Exam: normal inspection Pelvic Exam: deferred Rectal Exam: deferred Objective Data Vital Signs: Vital Signs - 24 hr Temp Pulse Resp BP Pulse Ox 10/03/24 11:25 97.9 F 67 16 131/60 94 L 10/03/24 08:00 68 16 96 10/03/24 07:12 98.5 F 64 16 116/56 96 10/03/24 04:00 97.0 F 73 18 109/58 96 10/03/24 00:00 97.5 F 70 16 112/62 94 L 10/02/24 19:15 113 H 16 93 L 10/02/24 18:00 98.2 F 82 18 117/58 92 L 10/02/24 17:13 97.6 F 82 18 117/58 96 10/02/24 16:45 97.6 F 84 16 117/58 96 10/02/24 16:37 97.6 F 84 16 117/58 96 10/02/24 16:27 76 15 123/63 96 10/02/24 15:51 96 10/02/24 15:10 70 18 96 Pain Assessment - Last Documented Pain Intensity 5 Pain Scale Used 0-10 Pain Scale Intake and Output: Intake & Output 10/01/24 10/02/24 10/03/24 10/04/24 11:59 11:59 11:59 11:59 Intake Total 1600 240 Output Total 200 Balance 1400 240 Weight 62.1 kg Lab Results: Lab Results-Last 24 Hours 10/02/24 10/02/24 10/02/24 Range/Units 14:25 15:09 15:09 WBC (3.98-10.04) x10^3/uL RBC (3.93-5.22) x10^6/uL Hgb (11.2-15.7) g/dL Hct (34.1-44.9) % MCV (79.4-94.8) fL MCH (25.6-32.2) pg MCHC (32.2-35.5) g/dL RDW (11.7-14.4) % Plt Count (182-369) x10^3/uL MPV (9.4-12.3) fL Gran % (34.0-71.1) % Immature Gran % (Auto) (0.001-0.429) % Nucleat RBC Rel Count (0.00-0.2) % Eos # (Auto) (0.04-0.36) x10^3/uL Immature Gran # (Auto) (0.001-0.031) x10^3u/L Absolute Lymphs (auto) (1.18-3.74) x10^3/uL Absolute Monos (auto) (0.24-0.86) x10^3/uL Absolute Nucleated RBC (0.00-0.012) x10^3u/L Lymphocytes % (19.3-51.7) % Monocytes % (4.7-12.5) % Eosinophils % (0.7-5.8) % Basophils % (0.1-1.2) % Absolute Granulocytes (1.56-6.13) x10^3/uL Basophils # (0.01-0.08) x10^3/uL Sodium 139 (135-145) mmol/L Potassium 4.4 (3.5-5.1) mmol/L Chloride 105 (98-107) mmol/L Carbon Dioxide 15 L* (22-30) mmol/L Anion Gap 23.4 H (5-15) MEQ/L BUN 59 H (7-17) mg/dL Creatinine 2.12 H (0.52-1.04) mg/dL Estimated GFR 25.9 ML/MIN Glucose 98 (74-106) mg/dL Hemoglobin A1c (4.5-6.0) % Calcium 9.4 (8.4-10.2) mg/dL Magnesium (1.6-2.3) mg/dL Total Bilirubin 1.20 (0.2-1.3) mg/dL AST 207 H (14-36) U/L ALT 55 H (0-35) U/L Alkaline Phosphatase 81 (38-126) U/L Ammonia (9-30) umol/L Serum Total Protein 7.9 (6.3-8.2) g/dL Albumin 5.1 H (3.5-5.0) g/dL TSH 3rd Generation (0.470-4.680) mIU/L Urine Color Dark Yellow A (Yellow) Urine Appearance Clear (Clear) Urine pH 5.0 (4.6-8.0) Ur Specific [place] 1.020 (1.005-1.030) Urine Protein 30 (Negative) Urine Glucose (UA) Negative (Negative) mg/dL Urine Ketones Trace A (Negative) Urine Blood Moderate A (Negative) Urine Nitrite Negative (Negative) Urine Bilirubin Negative (Negative) Urine Urobilinogen 1.0 A (0.2) mg/dL Ur Leukocyte Esterase Negative (Negative) U Hyaline Cast (Auto) 3-5 A (0-2) /LPF Urine Microscopic RBC 0-2 (0-5) /HPF Urine Microscopic WBC 3-5 (0-5) /HPF Ur Epithelial Cells Few (None Seen) /HPF Urine Bacteria Few A (None Seen) /HPF Urine Culture Reflexed YES (NO) Salicylates < 1.0 L (2-20) mg/dL Urine Opiates Level POSITIVE A (NEGATIVE) Ur Methadone NEGATIVE (NEGATIVE) Acetaminophen < 10 L (10-30) ug/ml Urine Barbiturates NEGATIVE (NEGATIVE) Ur Phencyclidine (PCP) NEGATIVE (NEGATIVE) Urine Amphetamine NEGATIVE (NEGATIVE) U Benzodiazepine Level NEGATIVE (NEGATIVE) Urine Cocaine NEGATIVE (NEGATIVE) Urine Marijuana (THC) POSITIVE A (NEGATIVE) Ethyl Alcohol < 10 (0-10) mg/dL 10/02/24 10/02/24 10/02/24 Range/Units 18:05 18:05 18:05 WBC (3.98-10.04) x10^3/uL RBC (3.93-5.22) x10^6/uL Hgb (11.2-15.7) g/dL Hct (34.1-44.9) % MCV (79.4-94.8) fL MCH (25.6-32.2) pg MCHC (32.2-35.5) g/dL RDW (11.7-14.4) % Plt Count (182-369) x10^3/uL MPV (9.4-12.3) fL Gran % (34.0-71.1) % Immature Gran % (Auto) (0.001-0.429) % Nucleat RBC Rel Count (0.00-0.2) % Eos # (Auto) (0.04-0.36) x10^3/uL Immature Gran # (Auto) (0.001-0.031) x10^3u/L Absolute Lymphs (auto) (1.18-3.74) x10^3/uL Absolute Monos (auto) (0.24-0.86) x10^3/uL Absolute Nucleated RBC (0.00-0.012) x10^3u/L Lymphocytes % (19.3-51.7) % Monocytes % (4.7-12.5) % Eosinophils % (0.7-5.8) % Basophils % (0.1-1.2) % Absolute Granulocytes (1.56-6.13) x10^3/uL Basophils # (0.01-0.08) x10^3/uL Sodium 139 (135-145) mmol/L Potassium 3.2 L D (3.5-5.1) mmol/L Chloride 108 H (98-107) mmol/L Carbon Dioxide 19 L (22-30) mmol/L Anion Gap 14.4 (5-15) MEQ/L BUN 51 H (7-17) mg/dL Creatinine 1.50 H (0.52-1.04) mg/dL Estimated GFR 39.2 ML/MIN Glucose 135 H (74-106) mg/dL Hemoglobin A1c (4.5-6.0) % Calcium 8.3 L (8.4-10.2) mg/dL Magnesium (1.6-2.3) mg/dL Total Bilirubin 0.80 (0.2-1.3) mg/dL AST 162 H (14-36) U/L ALT 43 H (0-35) U/L Alkaline Phosphatase 67 (38-126) U/L Ammonia 10 (9-30) umol/L Serum Total Protein 6.3 (6.3-8.2) g/dL Albumin 4.0 (3.5-5.0) g/dL TSH 3rd Generation 0.475 (0.470-4.680) mIU/L Urine Color (Yellow) Urine Appearance (Clear) Urine pH (4.6-8.0) Ur Specific [place] (1.005-1.030) Urine Protein (Negative) Urine Glucose (UA) (Negative) mg/dL Urine Ketones (Negative) Urine Blood (Negative) Urine Nitrite (Negative) Urine Bilirubin (Negative) Urine Urobilinogen (0.2) mg/dL Ur Leukocyte Esterase (Negative) U Hyaline Cast (Auto) (0-2) /LPF Urine Microscopic RBC (0-5) /HPF Urine Microscopic WBC (0-5) /HPF Ur Epithelial Cells (None Seen) /HPF Urine Bacteria (None Seen) /HPF Urine Culture Reflexed (NO) Salicylates (2-20) mg/dL Urine Opiates Level (NEGATIVE) Ur Methadone (NEGATIVE) Acetaminophen (10-30) ug/ml Urine Barbiturates (NEGATIVE) Ur Phencyclidine (PCP) (NEGATIVE) Urine Amphetamine (NEGATIVE) U Benzodiazepine Level (NEGATIVE) Urine Cocaine (NEGATIVE) Urine Marijuana (THC) (NEGATIVE) Ethyl Alcohol (0-10) mg/dL 10/02/24 10/03/24 10/03/24 Range/Units Unknown 05:28 05:28 WBC 7.8 (3.98-10.04) x10^3/uL RBC 3.09 L (3.93-5.22) x10^6/uL Hgb 9.7 L (11.2-15.7) g/dL Hct 28.5 L (34.1-44.9) % MCV 92.2 (79.4-94.8) fL MCH 31.4 (25.6-32.2) pg MCHC 34.0 (32.2-35.5) g/dL RDW 13.9 (11.7-14.4) % Plt Count 177 L (182-369) x10^3/uL MPV 11.8 (9.4-12.3) fL Gran % 60.3 (34.0-71.1) % Immature Gran % (Auto) 0.3 (0.001-0.429) % Nucleat RBC Rel Count 0.0 (0.00-0.2) % Eos # (Auto) 0.05 (0.04-0.36) x10^3/uL Immature Gran # (Auto) 0.02 (0.001-0.031) x10^3u/L Absolute Lymphs (auto) 2.36 (1.18-3.74) x10^3/uL Absolute Monos (auto) 0.64 (0.24-0.86) x10^3/uL Absolute Nucleated RBC 0.00 (0.00-0.012) x10^3u/L Lymphocytes % 30.1 (19.3-51.7) % Monocytes % 8.2 (4.7-12.5) % Eosinophils % 0.6 L (0.7-5.8) % Basophils % 0.5 (0.1-1.2) % Absolute Granulocytes 4.73 (1.56-6.13) x10^3/uL Basophils # 0.04 (0.01-0.08) x10^3/uL Sodium 141 (135-145) mmol/L Potassium 4.1 D (3.5-5.1) mmol/L Chloride 114 H (98-107) mmol/L Carbon Dioxide 17 L (22-30) mmol/L Anion Gap 13.5 (5-15) MEQ/L BUN 31 H (7-17) mg/dL Creatinine 0.81 (0.52-1.04) mg/dL Estimated GFR 82.0 ML/MIN Glucose 83 (74-106) mg/dL Hemoglobin A1c 4.69 (4.5-6.0) % Calcium 7.9 L (8.4-10.2) mg/dL Magnesium (1.6-2.3) mg/dL Total Bilirubin 1.10 (0.2-1.3) mg/dL AST 122 H (14-36) U/L ALT 36 H (0-35) U/L Alkaline Phosphatase 59 (38-126) U/L Ammonia (9-30) umol/L Serum Total Protein 5.7 L (6.3-8.2) g/dL Albumin 3.4 L (3.5-5.0) g/dL TSH 3rd Generation (0.470-4.680) mIU/L Urine Color (Yellow) Urine Appearance (Clear) Urine pH (4.6-8.0) Ur Specific [place] (1.005-1.030) Urine Protein (Negative) Urine Glucose (UA) (Negative) mg/dL Urine Ketones (Negative) Urine Blood (Negative) Urine Nitrite (Negative) Urine Bilirubin (Negative) Urine Urobilinogen (0.2) mg/dL Ur Leukocyte Esterase (Negative) U Hyaline Cast (Auto) (0-2) /LPF Urine Microscopic RBC (0-5) /HPF Urine Microscopic WBC (0-5) /HPF Ur Epithelial Cells (None Seen) /HPF Urine Bacteria (None Seen) /HPF Urine Culture Reflexed (NO) Salicylates (2-20) mg/dL Urine Opiates Level (NEGATIVE) Ur Methadone (NEGATIVE) Acetaminophen (10-30) ug/ml Urine Barbiturates (NEGATIVE) Ur Phencyclidine (PCP) (NEGATIVE) Urine Amphetamine (NEGATIVE) U Benzodiazepine Level (NEGATIVE) Urine Cocaine (NEGATIVE) Urine Marijuana (THC) (NEGATIVE) Ethyl Alcohol (0-10) mg/dL 10/03/24 Range/Units 05:28 WBC (3.98-10.04) x10^3/uL RBC (3.93-5.22) x10^6/uL Hgb (11.2-15.7) g/dL Hct (34.1-44.9) % MCV (79.4-94.8) fL MCH (25.6-32.2) pg MCHC (32.2-35.5) g/dL RDW (11.7-14.4) % Plt Count (182-369) x10^3/uL MPV (9.4-12.3) fL Gran % (34.0-71.1) % Immature Gran % (Auto) (0.001-0.429) % Nucleat RBC Rel Count (0.00-0.2) % Eos # (Auto) (0.04-0.36) x10^3/uL Immature Gran # (Auto) (0.001-0.031) x10^3u/L Absolute Lymphs (auto) (1.18-3.74) x10^3/uL Absolute Monos (auto) (0.24-0.86) x10^3/uL Absolute Nucleated RBC (0.00-0.012) x10^3u/L Lymphocytes % (19.3-51.7) % Monocytes % (4.7-12.5) % Eosinophils % (0.7-5.8) % Basophils % (0.1-1.2) % Absolute Granulocytes (1.56-6.13) x10^3/uL Basophils # (0.01-0.08) x10^3/uL Sodium (135-145) mmol/L Potassium (3.5-5.1) mmol/L Chloride (98-107) mmol/L Carbon Dioxide (22-30) mmol/L Anion Gap (5-15) MEQ/L BUN (7-17) mg/dL Creatinine (0.52-1.04) mg/dL Estimated GFR ML/MIN Glucose (74-106) mg/dL Hemoglobin A1c (4.5-6.0) % Calcium (8.4-10.2) mg/dL Magnesium 2.1 (1.6-2.3) mg/dL Total Bilirubin (0.2-1.3) mg/dL AST (14-36) U/L ALT (0-35) U/L Alkaline Phosphatase (38-126) U/L Ammonia (9-30) umol/L Serum Total Protein (6.3-8.2) g/dL Albumin (3.5-5.0) g/dL TSH 3rd Generation (0.470-4.680) mIU/L Urine Color (Yellow) Urine Appearance (Clear) Urine pH (4.6-8.0) Ur Specific [place] (1.005-1.030) Urine Protein (Negative) Urine Glucose (UA) (Negative) mg/dL Urine Ketones (Negative) Urine Blood (Negative) Urine Nitrite (Negative) Urine Bilirubin (Negative) Urine Urobilinogen (0.2) mg/dL Ur Leukocyte Esterase (Negative) U Hyaline Cast (Auto) (0-2) /LPF Urine Microscopic RBC (0-5) /HPF Urine Microscopic WBC (0-5) /HPF Ur Epithelial Cells (None Seen) /HPF Urine Bacteria (None Seen) /HPF Urine Culture Reflexed (NO) Salicylates (2-20) mg/dL Urine Opiates Level (NEGATIVE) Ur Methadone (NEGATIVE) Acetaminophen (10-30) ug/ml Urine Barbiturates (NEGATIVE) Ur Phencyclidine (PCP) (NEGATIVE) Urine Amphetamine (NEGATIVE) U Benzodiazepine Level (NEGATIVE) Urine Cocaine (NEGATIVE) Urine Marijuana (THC) (NEGATIVE) Ethyl Alcohol (0-10) mg/dL Radiology Exams: Radiology Procedures Category Date Time Status HEAD WITHOUT CONTRAST [CT] Routine Exams 10/02/24 17:09 Completed Assessment/Plan (1) Acute renal failure (ARF) Current Visit: Yes Status: Acute Assessment & Plan: -Most likely secondary to hypovolemia from poor oral intake -creatinine elevated from a baseline of 0.9 to 2.12 -IVF -monitor renal/lytes -avoid nephrotoxic meds 10/03/24: -Creat reviewed at 0.81- resolved (2) Acute psychosis Current Visit: Yes Status: Acute Assessment & Plan: -Patient has been accepted to psych facility once medically stable -Haldol given in ED -Lorazepam 1mg q4H prn for agitation -UDS reviewed and positive for opiates and THC -CT head 10/03: -CT head reviewed with 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 -Seroquel added for agitation/restlessness -Awaiting transfer for IP psych at [facility] - to be re-evaluated today Code(s): F23 - BRIEF PSYCHOTIC DISORDER (3) HLD (hyperlipidemia) Current Visit: Yes Status: Acute Assessment & Plan: -continue home meds once available Code(s): E78.5 - HYPERLIPIDEMIA, UNSPECIFIED (4) Dehydration Current Visit: Yes Status: Acute Assessment & Plan: -see ZAKIA above Code(s): E86.0 - DEHYDRATION (5) High anion gap metabolic acidosis Current Visit: Yes Status: Acute Assessment & Plan: -IVF -Sodium bicarb drip -Co2 level at 15- recheck in 4 hours - titrate drip accordingly 10/03: -Co2 reviewed at 17-improving - recheck this afternoon Code(s): E87.29 - OTHER ACIDOSIS (6) COPD (chronic obstructive pulmonary disease) Current Visit: No Status: Chronic Qualifiers: COPD type: chronic bronchitis Chronic bronchitis type: unspecified Qu alified Code(s): J42 - Unspecified chronic bronchitis Assessment & Plan: -On RA -Supplemental oxygen to maintain spo2 > 91% -Nebs/INH prn (7) Diarrhea Current Visit: Yes Status: Acute Assessment & Plan: -supportive care -cdiff/stool studies- pending Code(s): R19.7 - DIARRHEA, UNSPECIFIED (8) Hypertension Current Visit: No Status: Chronic Qualifiers: Hypertension type: primary hypertension Qualified Code(s): I10 - Essential (primary) hypertension Assessment & Plan: -stable - continue to monitor - somewhat soft will hold bp meds for now VTE: SCD PPI: protonix Dispo: 1-2 days Code status: Full code (2) Acute psychosis Current Visit: Yes Status: Acute Code(s): F23 - BRIEF PSYCHOTIC DISORDER (3) HLD (hyperlipidemia) Current Visit: Yes Status: Acute Code(s): E78.5 - HYPERLIPIDEMIA, UNSPECIFIED (4) Dehydration Current Visit: Yes Status: Acute Code(s): E86.0 - DEHYDRATION (5) High anion gap metabolic acidosis Current Visit: Yes Status: Acute Code(s): E87.29 - OTHER ACIDOSIS (6) COPD (chronic obstructive pulmonary disease) Current Visit: No Status: Chronic Qualifiers: COPD type: chronic bronchitis Chronic bronchitis type: unspecified Qualified Code(s): J42 - Unspecified chronic bronchitis (7) Diarrhea Current Visit: Yes Status: Acute Code(s): R19.7 - DIARRHEA, UNSPECIFIED (8) Hypertension Current Visit: No Status: Chronic Qualifiers: Hypertension type: primary hypertension Qualified Code(s): I10 - Essential (primary) hypertension Code(s): I10 - ESSENTIAL (PRIMARY) HYPERTENSION
--- NOTE | 2024-10-03 16:00 | PCM.DS ---
Discharge Summary Date of Admission: 10/02/24 16:33 Date of Discharge: 10/03/24 Admitting Physician: RODRICK BRICE MD Consults: Consults on Case 10/02/24 14:09 Consult,Khadijah [Psychiatric Consult] STAT Primary Care Provider: YOUSUF SAMUEL DO Allergies Allergies lisinopril Allergy (Verified 10/02/24 13:48) Anaphylactic Reaction Hospital Summary - Hospital Course Hospital Course: is a 64 year old female with a PMHX of of anxiety, depression, substance abuse, hypertension, hyperlipidemia, and COPD who was brought to the emergency department by police 10/02/24 for medical clearance prior to psychiatric placement due to active psychosis. On presentation, she exhibited significant agitation, flight of ideas, tangential thoughts, and pressured speech, with paranoid delusions including beliefs of individuals in her attic and abnormal sensations described as having "gloss" throughout her body. During my interview patient is lethargic s/p haloperidol and a poor historian. She reports decreased oral intake over the past several days and diarrhea. She states she was brought in because someone was in her house. She denies chest pain or respiratory distress. Following administration of haloperidol in ED , her agitation improved. Initial laboratory evaluation revealed an acute renal failure, with creatinine elevated from a baseline of 0.9 to 2.12, a BUN of 59, and an anion gap of 23, findings consistent with dehydration. Consequently, she was not medically cleared for psychiatric transfer and has been admitted for observation and fluid resuscitation until her renal function stabilizes, at which point she will be transferred for further psychiatric evaluation and management.She is now tolerating oral intake, with resolution of her acute kidney injury. However, she continues to exhibit paranoid delusions, expressing fears of being poisoned at home and reporting hallucinations of people emerging from the ceiling to lawson her. Given the persistence of these symptoms, she is awaiting transfer to [facility] for inpatient psychiatric evaluation and management. From a medical standpoint, she remains stable and appropriate for transfer. I spent 35 minutes [id number] with the patient on the day of discharge performing discharge exam, discussing hospital stay and discharge instructions with patient and caregivers, preparation of discharge records, prescriptions & referral forms and addressing any questions/concerns the patient had as documented above. - Vitals & Intake/Output Vital Signs: Vital Signs Temperature 97.9 F 10/03/24 11:25 Pulse Rate 67 10/03/24 11:25 Respiratory Rate 16 10/03/24 11:25 Blood Pressure 131/60 10/03/24 11:25 O2 Sat by Pulse Oximetry 94 L 10/03/24 11:25 Intake & Output: Intake & Output 10/01/24 10/02/24 10/03/24 10/04/24 11:59 11:59 11:59 11:59 Intake Total 1600 240 Output Total 200 Balance 1400 240 Weight 62.1 kg - Lab Result Diagrams: 10/03/24 05:28 10/03/24 05:28 Lab Results-Last 24 Hrs: Lab Results-Last 24 Hours 10/02/24 10/02/24 10/02/24 Range/Units 18:05 18:05 18:05 WBC (3.98-10.04) x10^3/uL RBC (3.93-5.22) x10^6/uL Hgb (11.2-15.7) g/dL Hct (34.1-44.9) % MCV (79.4-94.8) fL MCH (25.6-32.2) pg MCHC (32.2-35.5) g/dL RDW (11.7-14.4) % Plt Count (182-369) x10^3/uL MPV (9.4-12.3) fL Gran % (34.0-71.1) % Immature Gran % (Auto) (0.001-0.429) % Nucleat RBC Rel Count (0.00-0.2) % Eos # (Auto) (0.04-0.36) x10^3/uL Immature Gran # (Auto) (0.001-0.031) x10^3u/L Absolute Lymphs (auto) (1.18-3.74) x10^3/uL Absolute Monos (auto) (0.24-0.86) x10^3/uL Absolute Nucleated RBC (0.00-0.012) x10^3u/L Lymphocytes % (19.3-51.7) % Monocytes % (4.7-12.5) % Eosinophils % (0.7-5.8) % Basophils % (0.1-1.2) % Absolute Granulocytes (1.56-6.13) x10^3/uL Basophils # (0.01-0.08) x10^3/uL Sodium 139 (135-145) mmol/L Potassium 3.2 L D (3.5-5.1) mmol/L Chloride 108 H (98-107) mmol/L Carbon Dioxide 19 L (22-30) mmol/L Anion Gap 14.4 (5-15) MEQ/L BUN 51 H (7-17) mg/dL Creatinine 1.50 H (0.52-1.04) mg/dL Estimated GFR 39.2 ML/MIN Glucose 135 H (74-106) mg/dL Hemoglobin A1c (4.5-6.0) % Calcium 8.3 L (8.4-10.2) mg/dL Magnesium (1.6-2.3) mg/dL Total Bilirubin 0.80 (0.2-1.3) mg/dL AST 162 H (14-36) U/L ALT 43 H (0-35) U/L Alkaline Phosphatase 67 (38-126) U/L Ammonia 10 (9-30) umol/L Serum Total Protein 6.3 (6.3-8.2) g/dL Albumin 4.0 (3.5-5.0) g/dL TSH 3rd Generation 0.475 (0.470-4.680) mIU/L 10/02/24 10/03/24 10/03/24 Range/Units Unknown 05:28 05:28 WBC 7.8 (3.98-10.04) x10^3/uL RBC 3.09 L (3.93-5.22) x10^6/uL Hgb 9.7 L (11.2-15.7) g/dL Hct 28.5 L (34.1-44.9) % MCV 92.2 (79.4-94.8) fL MCH 31.4 (25.6-32.2) pg MCHC 34.0 (32.2-35.5) g/dL RDW 13.9 (11.7-14.4) % Plt Count 177 L (182-369) x10^3/uL MPV 11.8 (9.4-12.3) fL Gran % 60.3 (34.0-71.1) % Immature Gran % (Auto) 0.3 (0.001-0.429) % Nucleat RBC Rel Count 0.0 (0.00-0.2) % Eos # (Auto) 0.05 (0.04-0.36) x10^3/uL Immature Gran # (Auto) 0.02 (0.001-0.031) x10^3u/L Absolute Lymphs (auto) 2.36 (1.18-3.74) x10^3/uL Absolute Monos (auto) 0.64 (0.24-0.86) x10^3/uL Absolute Nucleated RBC 0.00 (0.00-0.012) x10^3u/L Lymphocytes % 30.1 (19.3-51.7) % Monocytes % 8.2 (4.7-12.5) % Eosinophils % 0.6 L (0.7-5.8) % Basophils % 0.5 (0.1-1.2) % Absolute Granulocytes 4.73 (1.56-6.13) x10^3/uL Basophils # 0.04 (0.01-0.08) x10^3/uL Sodium 141 (135-145) mmol/L Potassium 4.1 D (3.5-5.1) mmol/L Chloride 114 H (98-107) mmol/L Carbon Dioxide 17 L (22-30) mmol/L Anion Gap 13.5 (5-15) MEQ/L BUN 31 H (7-17) mg/dL Creatinine 0.81 (0.52-1.04) mg/dL Estimated GFR 82.0 ML/MIN Glucose 83 (74-106) mg/dL Hemoglobin A1c 4.69 (4.5-6.0) % Calcium 7.9 L (8.4-10.2) mg/dL Magnesium (1.6-2.3) mg/dL Total Bilirubin 1.10 (0.2-1.3) mg/dL AST 122 H (14-36) U/L ALT 36 H (0-35) U/L Alkaline Phosphatase 59 (38-126) U/L Ammonia (9-30) umol/L Serum Total Protein 5.7 L (6.3-8.2) g/dL Albumin 3.4 L (3.5-5.0) g/dL TSH 3rd Generation (0.470-4.680) mIU/L 10/03/24 Range/Units 05:28 WBC (3.98-10.04) x10^3/uL RBC (3.93-5.22) x10^6/uL Hgb (11.2-15.7) g/dL Hct (34.1-44.9) % MCV (79.4-94.8) fL MCH (25.6-32.2) pg MCHC (32.2-35.5) g/dL RDW (11.7-14.4) % Plt Count (182-369) x10^3/uL MPV (9.4-12.3) fL Gran % (34.0-71.1) % Immature Gran % (Auto) (0.001-0.429) % Nucleat RBC Rel Count (0.00-0.2) % Eos # (Auto) (0.04-0.36) x10^3/uL Immature Gran # (Auto) (0.001-0.031) x10^3u/L Absolute Lymphs (auto) (1.18-3.74) x10^3/uL Absolute Monos (auto) (0.24-0.86) x10^3/uL Absolute Nucleated RBC (0.00-0.012) x10^3u/L Lymphocytes % (19.3-51.7) % Monocytes % (4.7-12.5) % Eosinophils % (0.7-5.8) % Basophils % (0.1-1.2) % Absolute Granulocytes (1.56-6.13) x10^3/uL Basophils # (0.01-0.08) x10^3/uL Sodium (135-145) mmol/L Potassium (3.5-5.1) mmol/L Chloride (98-107) mmol/L Carbon Dioxide (22-30) mmol/L Anion Gap (5-15) MEQ/L BUN (7-17) mg/dL Creatinine (0.52-1.04) mg/dL Estimated GFR ML/MIN Glucose (74-106) mg/dL Hemoglobin A1c (4.5-6.0) % Calcium (8.4-10.2) mg/dL Magnesium 2.1 (1.6-2.3) mg/dL Total Bilirubin (0.2-1.3) mg/dL AST (14-36) U/L ALT (0-35) U/L Alkaline Phosphatase (38-126) U/L Ammonia (9-30) umol/L Serum Total Protein (6.3-8.2) g/dL Albumin (3.5-5.0) g/dL TSH 3rd Generation (0.470-4.680) mIU/L Micro Results-Entire Visit: Microbiology 10/02/24 15:09 Urine Culture - Preliminary Clean Catch Midstream NO GROWTH TO DATE - Radiology Exams Ordered Rad Exams-Entire Visit: Radiology Procedures Category Date Time Status HEAD WITHOUT CONTRAST [CT] Routine Exams 10/02/24 17:09 Completed - Procedures and Test Procedures and Tests throughout Hospitalization: Therapy Orders & Screens 10/02/24 21:38 Respiratory Therapy Assessment DAILY Comment: Diagnosis: ZAKIA Discharge Exam General Appearance: no apparent distress Neurologic Exam: alert, disoriented, confusion, agitation Eye Exam: PERRL Ears, Nose, Throat Exam: normal ENT inspection Neck Exam: normal inspection Respiratory Exam: normal breath sounds, lungs clear Cardiovascular Exam: regular rate/rhythm, normal heart sounds Gastrointestinal/Abdomen Exam: soft, normal bowel sounds Pelvic Exam: deferred Rectal Exam: deferred Back Exam: normal inspection Extremity Exam: normal inspection Skin Exam: normal color Final Diagnosis/Problem List - Final Discharge Diagnosis/Problem (1) Acute renal failure (ARF) Current Visit: Yes Status: Resolved (2) Acute psychosis Current Visit: Yes Status: Acute Code(s): F23 - BRIEF PSYCHOTIC DISORDER (3) HLD (hyperlipidemia) Current Visit: Yes Status: Chronic Code(s): E78.5 - HYPERLIPIDEMIA, UNSPECIFIED (4) Dehydration Current Visit: Yes Status: Resolved Code(s): E86.0 - DEHYDRATION (5) High anion gap metabolic acidosis Current Visit: Yes Status: Resolved Code(s): E87.29 - OTHER ACIDOSIS (6) COPD (chronic obstructive pulmonary disease) Current Visit: No Status: Chronic (7) Diarrhea Current Visit: Yes Status: Resolved Code(s): R19.7 - DIARRHEA, UNSPECIFIED (8) Hypertension Current Visit: No Status: Chronic Code(s): I10 - ESSENTIAL (PRIMARY) HYPERTENSION - Discharge Discharge Date: 10/03/24 Disposition: [facility] Condition: Stable Prescriptions: Continue Fluticasone/Vilanterol [Breo Ellipta 100-25 Mcg Inhalr] 1 each IH DAILY Losartan Potassium 50 mg [Cozaar 50 MG] 100 mg PO DAILY Gabapentin [Neurontin ] 100 mg PO TID Atorvastatin Calcium [Lipitor] 80 mg PO DAILY Albuterol Sulfate [Albuterol Sulfate Hfa] 7 gm IH Q6HPRN PRN PRN Reason: Shortness Of Breath/Wheezing Clopidogrel Bisulfate [Clopidogrel] 75 mg PO DAILY #0 Cyclobenzaprine HCl 10 mg [Cyclobenzaprine 10 MG] 10 mg PO BID 10 Days #20 tablet Semaglutide [Ozempic] 2 mg SQ WEEKLY Nicotine 21 mg [Nicoderm CQ 21 MG] 21 mg TD DAILY Follow up with: YOUSUF SAMUEL DO [Primary Care Provider] -
[2024-10-03] MEDS ORDERED: ZOFRAN ODT 4 MG ONE (16:04)
[2024-10-03] MEDS: ZOFRAN ODT 4 MG PO PRN (16:05)
[2024-10-03] MEDS: Ativan 2 MG/1 ML VIAL IM PRN (16:06)
[2024-10-03] MEDS: VENTOLIN COMMON CANISTER IH PRN (16:17)
[2024-10-03 19:59] VITALS: BP 104/51; RESP 18; TEMP 97.3
[2024-10-03 20:04] VITALS: PULSE 77; O2SAT 98
[2024-10-03] MEDS ORDERED: Seroquel 25 MG PO SCH (22:00)
[2024-10-04] MEDS ORDERED: Nicoderm CQ 21 MG TD SCH (10:00)
== END 2024-10-03 21:35 ==
LOC: ED 13:44 → MED SURG 16:33
PROVIDERS: ADMIT Internal Medicine; ATTEND Internal Medicine
DX: N17.9 Acute kidney failure, unspecified (principal); F23 Brief psychotic disorder; E78.5 Hyperlipidemia, unspecified; E86.0 Dehydration; E87.29 Other acidosis; J44.9 Chronic obstructive pulmonary disease, unspecified; R19.7 Diarrhea, unspecified; I10 Essential (primary) hypertension; F17.200 Nicotine dependence, unspecified, uncomplicated; F41.9 Anxiety disorder, unspecified; Z79.899 Other long term (current) drug therapy
CPT/HCPCS: 36415; 70450; 80053; 80143; 80179; 80307; 81001; 82077; 82140; 83036; 83735; 84443; 85025; 87086; 90791; 93005; 94640; 94760; 96372; 99285; Q3014; 99284; G0378; J1630; J2060; Q0162; A9270-GY

== ENCOUNTER 2024-10-08 20:27 | Emergency (ER) | payer OTHER ==
[2024-10-08 20:52] VITALS: RESP 24; TEMP 97.2
--- NOTE | 2024-10-08 20:59 | ERPHSYRPT ---
- History of Present Illness Time Seen by Provider: 10/08/24 20:55 Source: patient Exam Limitations: no limitations Patient Subjective Stated Complaint: pt states that she just got out of [facility] today. pt states that she thinks she has glass in her foot. pt states that she wants a breathing treatment, pain shot, and ativan Triage Nursing Assessment: pt ambulated into the er; pt is anxious, talkative, paranoid; pt states 10/10 pain to left foot; no open area, swelling, or deformity present to left foot; no respiratory distress present; hypertensive Physician History: 64-year-old female presents to our ED for evaluation of pain to her left foot. Patient states she believes she stepped on glass. Patient states the glass may be at the lateral aspect of her left forefoot. Patient left the [facility] today. She has a history of asthma. Patient reports she lost her inhaler. She is requesting a breathing treatment. No chest pain, no nausea vomiting or diaphoresis. Patient reports that she takes Ativan for anxiety. Patient ran out of Ativan and states her anxiety is high at this point. Patient requesting Ativan for anxiety. Patient otherwise feels well. She voices no other complaints or concerns at this time Timing/Duration: today Severity: moderate Modifying Factors: Improves With: nothing Associated Symptoms: denies symptoms Allergies/Adverse Reactions: lisinopril Allergy (Verified 10/08/24 20:36) Anaphylactic Reaction Home Medications: Albuterol Sulfate [Albuterol Sulfate Hfa] 7 gm IH Q6HPRN PRN 07/28/21 [History] Atorvastatin Calcium [Lipitor] 80 mg PO DAILY 07/28/21 [History] Fluticasone/Vilanterol [Breo Ellipta 100-25 Mcg Inhalr] 1 each IH DAILY 07/28/21 [History] Gabapentin [Neurontin ] 100 mg PO TID 07/28/21 [History] Losartan Potassium 50 mg [Cozaar 50 MG] 100 mg PO DAILY 07/28/21 [History] Semaglutide [Ozempic] 2 mg SQ WEEKLY 01/03/24 [History] Nicotine 21 mg [Nicoderm CQ 21 MG] 21 mg TD DAILY 10/03/24 [History] Hx Tetanus, Diphtheria Vaccination/Date Given: No Hx Influenza Vaccination/Date Given: Yes Hx Pneumococcal Vaccination/Date Given: Yes Travel Risk - International Travel Have you traveled outside of the country in past 3 weeks: No - Emerging Infectious Disease Are you exhibiting symptoms associated with any current EIDs: No - Review of Systems Constitutional: No Symptoms, No Fever, No Chills Eyes: No Symptoms Ears, Nose, & Throat: No Symptoms Respiratory: No Symptoms, No Cough, No Dyspnea Cardiac: No Symptoms, No Chest Pain, No Edema, No Syncope Abdominal/Gastrointestinal: No Symptoms, No Abdominal Pain, No Nausea, No Vomiting, No Diarrhea Genitourinary Symptoms: No Symptoms, No Dysuria Musculoskeletal: No Symptoms, No Back Pain, No Neck Pain Skin: No Symptoms, No Rash Neurological: No Symptoms, No Dizziness, No Focal Weakness, No Sensory Changes Psychological: No Symptoms Endocrine: No Symptoms Hematologic/Lymphatic: No Symptoms Immunological/Allergic: No Symptoms All Other Systems: Reviewed and Negative - Past Medical History Pertinent Past Medical History: Yes Neurological History: Other ENT History: No Pertinent History Cardiac History: Hypertension Respiratory History: Asthma Endocrine Medical History: No Pertinent History Musculoskeletal History: Osteoarthritis GI Medical History: No Pertinent History History: No Pertinent History Psycho-Social History: Anxiety, Depression Female Reproductive Disorders: No Pertinent History Other Medical History: depression, anxiety, viri, cardiomyopathy - Past Surgical History Past Surgical History: Yes Neuro Surgical History: No Pertinent History Cardiac: No Pertinent History Respiratory: No Pertinent History Gastrointestinal: Cholecystectomy Genitourinary: No Pertinent History Musculoskeletal: No Pertinent History Female Surgical History: Section Other Surgical History: colonoscopy Significant Family History: no pertinent family hx - Social History Smoking Status: Current every day smoker How long have you smoked: 50 years Exposure to second hand smoke: No Drug Use: marijuana, bath salts - Social Determinants of Health Will the patient participate in the screening: Yes Do you worry about a steady place to live?: Choose not to answer Do you have any problems with any of the following?: No known problems In the past 12 months,have you had to go without utilities?: No Transportation Issues: Choose not to answer Has anyone in your support network made you feel unsafe?: Choose not to answer Have you or anyone in your house had to go w/o enough food: Choose not to answer - Nursing Vital Signs Nursing Vital Signs: Initial Vital Signs Temperature 97.2 F 10/08/24 20:39 Pulse Rate 105 H 10/08/24 20:39 Respiratory Rate 24 10/08/24 20:39 Blood Pressure 172/133 10/08/24 20:39 O2 Sat by Pulse Oximetry 98 10/08/24 20:39 Pain Scale Pain Intensity 0 - Physical Exam General Appearance: no apparent distress, alert Eye Exam: PERRL/EOMI, eyes nml inspection Ears, Nose, Throat Exam: normal ENT inspection, moist mucous membranes Neck Exam: normal inspection, full range of motion Respiratory Exam: normal breath sounds, airway intact, diminished breath sounds (Breath sounds slightly diminished.), No respiratory distress Cardiovascular Exam: regular rate/rhythm, normal heart sounds, normal peripheral pulses Gastrointestinal/Abdomen Exam: soft, normal bowel sounds, No tenderness, No mass Back Exam: normal inspection, normal range of motion, No CVA tenderness, No vertebral tenderness Extremity Exam: normal inspection, normal range of motion, pelvis stable Neurologic Exam: alert, oriented x 3, cooperative, normal mood/affect, sensation nml, No motor deficits Skin Exam: normal color, warm, dry, No rash Lymphatic Exam: No adenopathy SpO2 Interpretation: normal SpO2: 98 O2 Delivery: Room Air - Course Nursing assessment & vital signs reviewed: Yes Ordered Tests: Active Orders 24 hr Category Date Time Status FOOT (MINIMUM 3 VIEWS) Stat Exams 10/08/24 20:50 Taken UA W/RFX UR CULTURE Stat Lab 10/08/24 21:37 Ordered Respiratory Therapy Assessment DAILY RT 10/08/24 21:34 Active Medication Summary Discontinued Medications Generic Name Dose Route Start Last Admin Trade Name Cuongq PRN Reason Stop Dose Admin Albuterol/Ipratropium 3 ml 10/08/24 20:57 10/08/24 21:34 Ipratropium/Albuterol Sulfate 3 Ml Ampul.Neb IH 10/08/24 20:58 3 ml STAT ONE Administration Albuterol/Ipratropium Confirm 10/08/24 21:11 Ipratropium/Albuterol Sulfate 3 Ml Ampul.Neb Administered 10/08/24 21:12 Dose 3 ml IH .STK-MED ONE Ketorolac Tromethamine 30 mg 10/08/24 20:55 10/08/24 21:04 Ketorolac Tromethamine 30 Mg/Ml Inj IM 10/08/24 20:56 30 mg STAT ONE Administration Ketorolac Tromethamine Confirm 10/08/24 21:02 Ketorolac Tromethamine 30 Mg/Ml Inj Administered 10/08/24 21:03 Dose 30 mg .ROUTE .STK-MED ONE Lorazepam 0.5 mg 10/08/24 20:56 Lorazepam 0.5 Mg Tablet PO 10/08/24 20:57 STAT ONE - Progress Progress: improved Progress Note: Patient reassessed. She is resting comfortably. Patient received 0.5 mg Ativan p.o. Patient states her anxiety is much better. Patient's shortness of breath resolved. Lungs are clear no longer diminished. X-ray of left foot is negative for foreign body. Patient states he is ready for discharge. Patient advises that she does not have a family doctor to follow-up with. Patient provided Dr. [place]'s contact number for follow-up. Vitals are stable. Patient voices no other complaints or concerns at this time. Patient given an albuterol inhaler to take home. Patient referred to orthopedic clinic for foot pain Portions of this note were created with voice recognition technology. There may be grammatical, spelling, punctuation or sound alike errors 10/08/24 21:43 Counseled pt/family regarding: diagnosis, need for follow-up, rad results - Departure Departure Disposition: Home Clinical Impression: Anxiety, Asthma, Foot pain Condition: Stable Critical Care Time: No Referrals: YOUSUF SAMUEL DO [Primary Care Provider] - Follow up/PCP as directed Additional Instructions: Discharge/Care Plan JULIA ERICKSON was seen on 10/08/24 in the Emergency Room. The patient was counseled regarding Diagnosis,Lab results, Imaging studies, need for follow up and when to return to the Emergency Room. Prescriptions given: Discharge Note I have spoken with the patient and/or caregivers. I have explained the patient's condition, diagnosis and treatment plan based on the information available to me at this time. I have answered the patient's and/or caregiver's questions and addressed any concerns. The patient and/or caregivers have as good understanding of the patient's diagnosis, condition and treatment plan as can be expected at this point. The vital signs have been stable. The patient's condition is stable and appropriate for discharge from the emergency department. The patient will pursue further outpatient evaluation with the primary care physician or other designated or consulting physician as outlined in the discharge instructions. The patient and/or caregivers are agreeable to this plan of care and follow-up instructions have been explained in detail. The patient and/or caregivers have received these instruction. The patient/and or caregivers are aware that any significant change in condition or worsening of symptoms should prompt an immediate return to this or the closest emergency department or call 911. Outpatient Orders: Ortho Referral Time Frame: 1 Day, Facility: [facility], Location: ORTHO CLINIC
[2024-10-08] MEDS ORDERED: TORAdol 30 mg Injection ONE (21:02)
[2024-10-08] MEDS: TORAdol 30 mg Injection IM ONE (21:04)
[2024-10-08] MEDS ORDERED: DUONEB 0.5-3 MG/3 ml Neb IH ONE (21:11)
[2024-10-08] MEDS: DUONEB 0.5-3 MG/3 ml Neb IH ONE (21:34)
[2024-10-08 21:37] VITALS: BP 157/93; PULSE 104
[2024-10-08 21:46] VITALS: O2SAT 98
[2024-10-08] MEDS ORDERED: Ventolin Hfa MDI IH PRN (21:47)
[2024-10-08 21:51] LABS: Appearance Clear (Clear); Bacteria None Seen /HPF (None Seen); Bilirubin Negative (Negative); Blood Negative (Negative); Epithelial Cells None Seen /HPF (None Seen); Glucose, Urine Negative (Negative); Hyaline Casts NONE SEEN /LPF (0-2); Ketones Negative (Negative); Leukocyte Esterase Negative (Negative); Nitrite Negative (Negative); Protein,Urine Dip Negative (Negative); RBC 0-2 /HPF (0-5); Specific Gravity <=1.005 (1.005-1.030); Urobilinogen 0.2 mg/dL (0.2); WBC 0-2 /HPF (0-5)
[2024-10-08] MEDS ORDERED: Ventolin Hfa MDI IH ONE (21:54)
[2024-10-08] MEDS: Ativan 0.5 MG PO ONE (22:01)
--- NOTE | 2024-10-09 08:46 | XRAY ---
Indication: Pain following injury. Comparison: None 3 nonweightbearing views left foot demonstrates osteopenia. No other bony, articular, or soft tissue abnormalities.
== END 2024-10-08 22:13 | disposition home or self-care (01) ==
LOC: ED 20:27
DX: F41.9 Anxiety disorder, unspecified (principal); J45.909 Unspecified asthma, uncomplicated; M79.672 Pain in left foot; I10 Essential (primary) hypertension; Z79.85 Long-term (current) use of injectable non-insulin antidiabetic drugs; Z79.899 Other long term (current) drug therapy; Z72.0 Tobacco use
CPT/HCPCS: 73630; 81001; 94640; 96372; 99284; J1885; A9270-GY